=== PATIENT | female | born 1935 | race Caucasian/White ===

== ENCOUNTER 2017-06-07 14:07 | Inpatient (IN) | payer OTHER, MEDICARE ==
--- OUTSIDE RECORDS SUMMARY | 2017-06-07 14:10 | XMS REPORT ---
:1935 [facility] [address]. [address] [place] [id number] Care Team Providers Name Role Phone HAILEE DOWELL Unavailable Unavailable Problems This patient has no known problems. Allergies, Adverse Reactions, Alerts This patient has no known allergies or adverse reactions. Medications This patient has no known medications. Results Test Description Test Time Test Comments Text Results Atomic Results Result Comments BLOOD CULTURE 2017-01-15 00:00:00 Test Item Value Reference Range Comments CULTURE (BEAKER) (test pgmo=9913) No growth in 5 days BLOOD [id number] 00:00:00 Test Item Value Reference Range Comments CULTURE (BEAKER) (test tvju=9929) No growth in 5 days CLOSTRIDIUM DIFFICILE TOXIN [id number] 17:09:00 Test Item Value Reference Range Comments CLOSTRIDIUM DIFFICILE TOXIN, PCR (BEAKER) (test Not Detected Not Detected qrfm=0091) This qualitative real-time polymerase chain reaction assay detects the tcdB gene , encoded on the C.difficile pathogenicity locus (PaLoc). The product of tcdB, toxin B, is a cytotoxin essential for causing C.difficile-associated disease ( CDAD) and is found in virtually all toxigenic C.difficile.This assay is performed for patients suspected of having either community-acquired or nosocomial CDAD. Accordingly, only symptomatic patients should be tested and formed stools will be rejected unless ileus is present (i.e., specified when ordering). Patients may be colonized with toxigenic C.difficile strains not causing active disease; therefore, clinical correlation is needed when deciding how to manage patients with a positive test result.The assay has not been validated as a test of cure as amplifiable nucleic acid may persist after effective treatment; therefore, follow-up testing of a positive result is not recommended.BASIC METABOLIC [id number] 10:06:00 Test Item Value Reference Range Comments SODIUM (BEAKER) (test 138 meq/L 136-145 hmhd=682) POTASSIUM (BEAKER) (test 4.2 meq/L 3.5-5.1 Specimen slightly fpzz=521) hemolyzed CHLORIDE (BEAKER) (test 104 meq/L 98-107 vzef=589) CO2 (BEAKER) (test 24 meq/L 22-29 rixy=000) BLOOD UREA NITROGEN 26 mg/dL 7-21 (BEAKER) (test irws=122) CREATININE (BEAKER) (test 0.94 mg/dL 0.57-1.25 Specimen slightly cwpv=133) hemolyzed GLUCOSE RANDOM (BEAKER) 100 mg/dL 70-105 (test cspa=750) CALCIUM (BEAKER) (test 8.8 mg/dL 8.4-10.2 xavi=513) EGFR (BEAKER) (test 57 mL/min/1.73 sq m ESTIMATED GFR IS NOT cskg=4338) ACCURATE CREATININE CLEARANCE IN PREDICTING GLOMERULAR FILTRATION RATE. ESTIMATED GFR IS NOT APPLICABLE FOR DIALYSIS PATIENTS. CBC W/PLT COUNT & AUTO [id number] 09:48:00 Test Item Value Reference Range Comments WHITE BLOOD CELL COUNT 12.9 K/ L 3.5-10.5 (BEAKER) (test lfoc=930) RED BLOOD CELL COUNT (BEAKER) 4.59 M/ L 3.93-5.22 (test vaal=751) HEMOGLOBIN (BEAKER) (test 13.4 GM/DL 11.2-15.7 uyuu=009) HEMATOCRIT (BEAKER) (test 43.1 % 34.1-44.9 zgqq=223) MEAN CORPUSCULAR VOLUME 93.9 fL 79.4-94.8 (BEAKER) (test jjzy=902) MEAN CORPUSCULAR HEMOGLOBIN 29.2 pg 25.6-32.2 (BEAKER) (test qbwa=142) MEAN CORPUSCULAR HEMOGLOBIN 31.1 GM/DL 32.2-35.5 CONC (BEAKER) (test mizv=274) RED CELL DISTRIBUTION WIDTH 12.8 % 11.7-14.4 (BEAKER) (test khfo=583) PLATELET COUNT (BEAKER) (test 286 K/CU MM 150-450 .Discordant from previous qzfe=502) results. Clinical correlation suggested. MEAN PLATELET VOLUME (BEAKER) 10.3 fL 9.4-12.3 (test qcbz=869) NUCLEATED RED BLOOD CELLS 0 /100 WBC 0-0 (BEAKER) (test siwl=594) NEUTROPHILS RELATIVE PERCENT 70 % (BEAKER) (test niha=982) LYMPHOCYTES RELATIVE PERCENT 17 % (BEAKER) (test yabw=365) MONOCYTES RELATIVE PERCENT 8 % (BEAKER) (test eoks=886) EOSINOPHILS RELATIVE PERCENT 3 % (BEAKER) (test ywxb=283) BASOPHILS RELATIVE PERCENT 1 % (BEAKER) (test xnms=482) NEUTROPHILS ABSOLUTE COUNT 9.04 K/ L 1.56-6.13 (BEAKER) (test bvli=572) LYMPHOCYTES ABSOLUTE COUNT 2.22 K/ L 1.18-3.74 (BEAKER) (test zxkl=577) MONOCYTES ABSOLUTE COUNT 0.99 K/ L 0.24-0.36 (BEAKER) (test gbdq=189) EOSINOPHILS ABSOLUTE COUNT 0.32 K/ L 0.04-0.36 (BEAKER) (test hhud=327) BASOPHILS ABSOLUTE COUNT 0.15 K/ L 0.01-0.08 (BEAKER) (test cptw=537) IMMATURE 1 % 0-1 GRANULOCYTES-RELATIVE PERCENT (BEAKER) (test njag=3803) RAD, FOOT, 2 VIEWS, [id number] 16:52:00Reason for exam:->pain with ambulationFINAL REPORT Radiograph of the right foot Reason for exam: pain with ambulation Comparison: No priors Discussion: Three views of the right foot are obtained. Bony mineralization is decreased. There is mild osteoarthritic change. No evidence of acute fracture, or dislocation. No bony erosion, or periosteal reaction is identified. The visualized soft tissues are unremarkable. Impressions: No acute osseous abnormality identified. Decreased bony mineralization. Osteoarthritis.Signed: Ting Peterson Verified Date/Time: 01/12/2017 16:52:45 Reading Location: [address] Consult Reading Room T4, [id number] 16:26:00 Test Item Value Reference Range Comments FREE T4 (BEAKER) (test afxa=352) 1.12 ng/dL 0.70-1.48 TSH/FREE T4 IF [id number] 15:46:00 Test Item Value Reference Range Comments THYROID STIMULATING HORMONE (BEAKER) (test 0.03 uIU/mL 0.35-4.94 fhjt=153) BASIC METABOLIC [id number] 15:35:00 Test Item Value Reference Range Comments SODIUM (BEAKER) (test 136 meq/L 136-145 aahn=657) POTASSIUM (BEAKER) (test 4.1 meq/L 3.5-5.1 hzli=186) CHLORIDE (BEAKER) (test 99 meq/L 98-107 qtrw=823) CO2 (BEAKER) (test 24 meq/L 22-29 ewzs=580) BLOOD UREA NITROGEN 32 mg/dL 7-21 (BEAKER) (test tpga=618) CREATININE (BEAKER) (test 1.12 mg/dL 0.57-1.25 ttqz=592) GLUCOSE RANDOM (BEAKER) 164 mg/dL 70-105 (test gnnx=472) CALCIUM (BEAKER) (test 10.2 mg/dL 8.4-10.2 hjyz=101) EGFR (BEAKER) (test 46 mL/min/1.73 sq m ESTIMATED GFR IS NOT uory=0952) ACCURATE CREATININE CLEARANCE IN PREDICTING GLOMERULAR FILTRATION RATE. ESTIMATED GFR IS NOT APPLICABLE FOR DIALYSIS PATIENTS. CBC W/PLT COUNT & AUTO [id number] 15:06:00 Test Item Value Reference Range Comments WHITE BLOOD CELL COUNT (BEAKER) (test yfic=357) 17.4 K/ L 3.5-10.5 RED BLOOD CELL COUNT (BEAKER) (test pdmf=546) 4.93 M/ L 3.93-5.22 HEMOGLOBIN (BEAKER) (test gznr=090) 14.0 GM/DL 11.2-15.7 HEMATOCRIT (BEAKER) (test lupq=650) 44.8 % 34.1-44.9 MEAN CORPUSCULAR VOLUME (BEAKER) (test mcev=877) 90.9 fL 79.4-94.8 MEAN CORPUSCULAR HEMOGLOBIN (BEAKER) (test 28.4 pg 25.6-32.2 zgto=067) MEAN CORPUSCULAR HEMOGLOBIN CONC (BEAKER) (test 31.3 GM/DL 32.2-35.5 lpuo=135) RED CELL DISTRIBUTION WIDTH (BEAKER) (test 12.9 % 11.7-14.4 yiha=300) PLATELET COUNT (BEAKER) (test cvbw=354) 360 K/CU MM 150-450 MEAN PLATELET VOLUME (BEAKER) (test cexl=247) 10.5 fL 9.4-12.3 NUCLEATED RED BLOOD CELLS (BEAKER) (test 0 /100 WBC 0-0 ogbh=446) NEUTROPHILS RELATIVE PERCENT (BEAKER) (test 82 % opwt=372) LYMPHOCYTES RELATIVE PERCENT (BEAKER) (test 11 % fnhf=484) MONOCYTES RELATIVE PERCENT (BEAKER) (test 4 % giww=287) EOSINOPHILS RELATIVE PERCENT (BEAKER) (test 0 % iggm=636) BASOPHILS RELATIVE PERCENT (BEAKER) (test 1 % gimf=789) NEUTROPHILS ABSOLUTE COUNT (BEAKER) (test 14.33 K/ L 1.56-6.13 bpsl=605) LYMPHOCYTES ABSOLUTE COUNT (BEAKER) (test 1.97 K/ L 1.18-3.74 efwk=644) MONOCYTES ABSOLUTE COUNT (BEAKER) (test 0.71 K/ L 0.24-0.36 sgcs=089) EOSINOPHILS ABSOLUTE COUNT (BEAKER) (test 0.05 K/ L 0.04-0.36 rebe=592) BASOPHILS ABSOLUTE COUNT (BEAKER) (test 0.16 K/ L 0.01-0.08 pozw=319) IMMATURE GRANULOCYTES-RELATIVE PERCENT (BEAKER) 1 % 0-1 (test vgcy=4909) URINE [id number] 08:21:00 Test Item Value Reference Range Comments CULTURE (BEAKER) (test bzrj=6879) Amikacin (test code=1) Ampicillin + Sulbactam (test code=6) Aztreonam (test code=32) Cefepime (test code=51) Cefoxitin (test code=68) Ceftazidime (test code=27) Ceftriaxone (test code=52) Ertapenem (test code=38) Gentamicin (test code=18) Levofloxacin (test code=22) Meropenem (test code=34) Nitrofurantoin (test code=23) Piperacillin + Tazobactam (test code=29) Tetracycline (test code=2) Tobramycin (test code=25) Trimethoprim + Sulfamethoxazole (test code=47) CULTURE (BEAKER) (test zfyo=0298) >100,000 col/mL Proteus mirabilis <10,000 col/mL skin ranjith<10,000 col/mL gram negative rods of a second typeMR, BRAIN, WITHOUT [id number] 16:03:00Reason for exam:->Ischemic Stroke EvaluationFINAL REPORT MRI Brain without contrast Clinical History: Ischemic Stroke EvaluationTIA Episode of Care: Initial Technique: MRI of the brain utilizing axial T2, FLAIR, GRE, DWI; sagittal and coronal T1-weighted images. Comparisons: None Findings: There is no evidence of acute infarct or hemorrhage. There is an incompletely characterized 8 mm T2 hyperintense, T1 isointense soft tissue nodule in the suprasellar cistern, possibly related to the infundibulum. There is a focal extra-axial CSF signal intensity space in the left lateral frontal region measuring approximately 1.8 cm in thickness by 3.4 cm AP which may represent an arachnoid cyst. There is contouring of the underlying frontal lobe without evidence of vasogenic edema. There is moderate to severe periventricular and subcortical white matter T2 hyperintensity, which is nonspecific but compatible with chronic microvascular ischemic change. There is generalized parenchymal volume loss without hydrocephalus or midline shift. The craniocervical junction is preserved. The major intracranial flow-voids appear patent. IMPRESSION: No evidence of acute infarct, hemorrhage, or hydrocephalus. Nonspecific 8 mm nodule in the suprasellar cistern, possibly related to the infundibulum. Further evaluation with a dedicated pituitary protocol MRI brain is recommended. 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 Signed: Wang Lunsford MDReport Verified Date/Time: 16:03:04 Reading Location: [address] Neuro Reading Room URINALYSIS W/ [id number] 15:35:00 Test Item Value Reference Range Comments COLOR (BEAKER) (test peoz=035) Light Yellow CLARITY (BEAKER) (test bkkp=675) Hazy SPECIFIC GRAVITY UA (BEAKER) (test xbge=425) 1.010 1.001-1.035 PH UA (BEAKER) (test hbfg=659) 8.0 5.0-8.0 PROTEIN UA (BEAKER) (test nzbm=516) 20 mg/dL Negative GLUCOSE UA (BEAKER) (test laqa=737) Negative Negative KETONES UA (BEAKER) (test bbmn=608) Negative Negative BILIRUBIN UA (BEAKER) (test imao=222) Negative Negative BLOOD UA (BEAKER) (test ybio=061) Negative Negative NITRITE UA (BEAKER) (test dsuw=269) Negative Negative LEUKOCYTE ESTERASE UA (BEAKER) (test lctm=434) Large Negative UROBILINOGEN UA (BEAKER) (test aqvd=166) 0.2 mg/dL 0.2-1.0 RBC UA (BEAKER) (test faov=354) 2 /HPF WBC UA (BEAKER) (test uvlo=319) 87 /HPF SQUAMOUS EPITHELIAL (BEAKER) (test dlqd=255) 3 /HPF SOURCE(BEAKER) (test kqkv=7191) Urine, Voided URINALYSIS W/ REFLEX URINE [id number] 15:35:00 Test Item Value Reference Range Comments COLOR (BEAKER) (test gxic=830) Light Yellow CLARITY (BEAKER) (test ewam=400) Hazy SPECIFIC GRAVITY UA (BEAKER) (test ogdz=474) 1.010 1.001-1.035 PH UA (BEAKER) (test ibbq=327) 8.0 5.0-8.0 PROTEIN UA (BEAKER) (test trbc=225) 20 mg/dL Negative GLUCOSE UA (BEAKER) (test hhub=620) Negative Negative KETONES UA (BEAKER) (test dcau=534) Negative Negative BILIRUBIN UA (BEAKER) (test cnof=079) Negative Negative BLOOD UA (BEAKER) (test dewh=663) Negative Negative NITRITE UA (BEAKER) (test xbbh=421) Negative Negative LEUKOCYTE ESTERASE UA (BEAKER) (test pdpc=999) Large Negative UROBILINOGEN UA (BEAKER) (test gijj=108) 0.2 mg/dL 0.2-1.0 RBC UA (BEAKER) (test sdkq=405) 2 /HPF WBC UA (BEAKER) (test cuba=336) 87 /HPF SQUAMOUS EPITHELIAL (BEAKER) (test ycxc=210) 3 /HPF SOURCE(BEAKER) (test dcxc=8817) Urine, Voided [id number] 14:30:00 Test Item Value Reference Range Comments RPR SCREEN (BEAKER) (test hvvd=237) Nonreactive Nonreactive HEMOGLOBIN [id number] 10:58:00 Test Item Value Reference Range Comments HEMOGLOBIN A1C (BEAKER) (test cukw=463) 5.8 % 4.3-6.1 SEDIMENTATION [id number] 10:44:00 Test Item Value Reference Range Comments SEDIMENTATION RATE, ERYTHROCYTE (BEAKER) (test 52 mm/HR 0-40 xvgl=462) T4, [id number] 09:16:00 Test Item Value Reference Range Comments FREE T4 (BEAKER) (test wjbm=599) 0.94 ng/dL 0.70-1.48 TSH/FREE T4 IF [id number] 08:42:00 Test Item Value Reference Range Comments THYROID STIMULATING HORMONE (BEAKER) (test 0.05 uIU/mL 0.35-4.94 wxkq=630) VITAMIN B12 AND [id number] 08:37:00 Test Item Value Reference Range Comments VITAMIN B12 (BEAKER) (test nefp=648) 829 pg/mL 213-816 FOLATE (BEAKER) (test ddnh=298) 15.9 ng/mL >=7.0 [id number] 08:36:00 Test Item Value Reference Range Comments HOMOCYSTEINE (BEAKER) (test rrht=656) 10.2 umol/L 5.1-15.4 LIPID [id number] 08:26:00 Test Item Value Reference Range Comments TRIGLYCERIDES (BEAKER) (test uysx=928) 86 mg/dL CHOLESTEROL (BEAKER) (test jzxr=609) 194 mg/dL HDL CHOLESTEROL (BEAKER) (test goqt=835) 66 mg/dL LDL CHOLESTEROL CALCULATED (BEAKER) (test 111 mg/dL nfuf=361) Triglyceride Reference Range: Low Risk <150 Borderline 150- 199 High Risk 200-499 Very High Risk >=500Cholesterol Reference Range: Low Risk <200 Borderline 200-239 High Risk > 240HDL Cholesterol Reference Range: Low Risk >=60 High Risk <40LDL Cholesterol Reference Range: Optimal <100 Near Optimal 100-129 Borderline 130-159 High 160-189 Very High >=190 FastingBASIC METABOLIC [id number] 08:26:00 Test Item Value Reference Range Comments SODIUM (BEAKER) (test 136 meq/L 136-145 jokz=534) POTASSIUM (BEAKER) (test 4.7 meq/L 3.5-5.1 elda=618) CHLORIDE (BEAKER) (test 99 meq/L 98-107 yvtq=493) CO2 (BEAKER) (test 24 meq/L 22-29 yhwf=226) BLOOD UREA NITROGEN 27 mg/dL 7-21 (BEAKER) (test jmdo=358) CREATININE (BEAKER) (test 1.04 mg/dL 0.57-1.25 uhxf=052) GLUCOSE RANDOM (BEAKER) 133 mg/dL 70-105 (test ihlr=875) CALCIUM (BEAKER) (test 8.8 mg/dL 8.4-10.2 ouiu=669) EGFR (BEAKER) (test 51 mL/min/1.73 sq m ESTIMATED GFR IS NOT hdvk=0075) ACCURATE CREATININE CLEARANCE IN PREDICTING GLOMERULAR FILTRATION RATE. ESTIMATED GFR IS NOT APPLICABLE FOR DIALYSIS PATIENTS. FastingHEPATIC FUNCTION [id number] 08:26:00 Test Item Value Reference Range Comments TOTAL PROTEIN (BEAKER) (test hkqm=071) 6.8 gm/dL 6.0-8.3 ALBUMIN (BEAKER) (test nktq=0010) 3.4 g/dL 3.5-5.0 BILIRUBIN TOTAL (BEAKER) (test wfdm=555) 0.6 mg/dL 0.2-1.2 BILIRUBIN DIRECT (BEAKER) (test edjy=599) 0.2 mg/dL 0.1-0.5 ALKALINE PHOSPHATASE (BEAKER) (test txbl=537) 67 U/L 40-150 AST (SGOT) (BEAKER) (test yinl=834) 16 U/L 5-34 ALT (SGPT) (BEAKER) (test ujxo=097) 11 U/L 6-55 FastingCREATINE KINASE (CK), TOTAL AND [id number] 08:26:00 Test Item Value Reference Range Comments CREATINE KINASE TOTAL (BEAKER) (test bixr=981) 30 U/L 29-200 CREATINE KINASE-MB (BEAKER) (test cvsv=956) 0.8 ng/mL 0.0-6.6 CREATINE KINASE-MB INDEX (BEAKER) (test dnjt=576) 2.7 % CK-MB Reference Range:<6.7 Normal6.7-10.0 Borderline>10.0 AbnormalFastingFastingC-REACTIVE [id number] 08:26:00 Test Item Value Reference Range Comments C-REACTIVE PROTEIN (BEAKER) (test neib=330) 1.74 mg/dL 0.00-0.50 FastingCBC W/PLT COUNT & AUTO [id number] 07:57:00 Test Item Value Reference Range Comments WHITE BLOOD CELL COUNT (BEAKER) (test mapc=201) 16.6 K/ L 3.5-10.5 RED BLOOD CELL COUNT (BEAKER) (test aiii=692) 4.21 M/ L 3.93-5.22 HEMOGLOBIN (BEAKER) (test ufqg=295) 12.3 GM/DL 11.2-15.7 HEMATOCRIT (BEAKER) (test rzkg=847) 38.4 % 34.1-44.9 MEAN CORPUSCULAR VOLUME (BEAKER) (test ycmk=865) 91.2 fL 79.4-94.8 MEAN CORPUSCULAR HEMOGLOBIN (BEAKER) (test 29.2 pg 25.6-32.2 uxnt=134) MEAN CORPUSCULAR HEMOGLOBIN CONC (BEAKER) (test 32.0 GM/DL 32.2-35.5 ehjv=565) RED CELL DISTRIBUTION WIDTH (BEAKER) (test 12.9 % 11.7-14.4 zosu=667) PLATELET COUNT (BEAKER) (test mwgc=292) 296 K/CU MM 150-450 MEAN PLATELET VOLUME (BEAKER) (test kkzy=966) 10.3 fL 9.4-12.3 NUCLEATED RED BLOOD CELLS (BEAKER) (test 0 /100 WBC 0-0 uave=458) NEUTROPHILS RELATIVE PERCENT (BEAKER) (test 78 % jbii=833) LYMPHOCYTES RELATIVE PERCENT (BEAKER) (test 15 % ucng=539) MONOCYTES RELATIVE PERCENT (BEAKER) (test 5 % sufn=496) EOSINOPHILS RELATIVE PERCENT (BEAKER) (test 1 % mrgb=973) BASOPHILS RELATIVE PERCENT (BEAKER) (test 1 % ddeo=343) NEUTROPHILS ABSOLUTE COUNT (BEAKER) (test 12.92 K/ L 1.56-6.13 egam=281) LYMPHOCYTES ABSOLUTE COUNT (BEAKER) (test 2.40 K/ L 1.18-3.74 goad=742) MONOCYTES ABSOLUTE COUNT (BEAKER) (test 0.90 K/ L 0.24-0.36 lgay=774) EOSINOPHILS ABSOLUTE COUNT (BEAKER) (test 0.08 K/ L 0.04-0.36 pmff=265) BASOPHILS ABSOLUTE COUNT (BEAKER) (test 0.11 K/ L 0.01-0.08 bpfl=714) IMMATURE GRANULOCYTES-RELATIVE PERCENT (BEAKER) 1 % 0-1 (test kdfo=0723) TROPONIN [id number] 07:47:00 Test Item Value Reference Range Comments TROPONIN I (BEAKER) (test anho=336) 0.01 ng/mL 0.00-0.03 Troponin I (TnI) levels must be interpreted in the context of the presenting symptoms and the clinical findings. Elevated TnI levels indicate myocardial damage, but are not specific for ischemic heart disease. Elevated TnI levels are seen in patients with other cardiac conditions (including myocarditis and congestive heart failure), and slight TnI elevations occur in patients with other conditions, including sepsis, renal failure, acidosis, acute neurological disease, and persistent tachyarrhythmia.Fasting
[2017-06-07] MEDS ORDERED: ALBUTEROL 2.5 MG/3 ML NEB SOL ONE (14:48)
[2017-06-07 14:49] LABS: Absolute Lymphocytes (CBC) 2.2 K/uL (0.7-4.9); Absolute Monocytes 0.6 K/uL (0.1-1.3); Absolute Neutrophil 10.8 K/uL (1.8-8.0); Basophils % 1.1 % (0-1.3); Lymphocytes % 15.8 % (15.3-44.8); MCH 29.1 pg (27.0-35.0); MCV 91.1 fL (80-100); MPV 9.1 fL (7.6-11.3); Monocytes % 4.3 % (3.3-12.3); RBC Red Blood Cell Count 4.94 M/uL (3.86-4.86)
[2017-06-07] MEDS ORDERED: IPRATROPIUM BROM 0.5MG/2.5ML ONE (14:49)
[2017-06-07] MEDS ORDERED: LEVALBUTEROL 1.25 MG/3 ML NEB ONE (14:49)
[2017-06-07 14:51] LABS: Potassium 4.4 mEq/L (3.6-5.0)
[2017-06-07 14:57] LABS: Albumin 4.2 g/dL (3.2-5.5); Bilirubin Direct 0.1 mg/dL (0-0.2); Bilirubin Total 0.7 mg/dL (0.3-1.2); Magnesium 2.1 mg/dL (1.8-2.5); Protein, Total 8.1 g/dL (6.0-8.3)
--- NOTE | 2017-06-07 15:35 | EKG ---
Test Date: 2017-06-07 Test Time: 14:18:39 Glass Smoother: HOLLIS MEASUREMENT RESULTS: Intervals: Rate: 91 UT: 150 QRSD: 76 QT: 402 QTc: 494 Donalds: P: 65 UT: 150 QRS: -14 T: 29 INTERPRETIVE STATEMENTS: Normal sinus rhythm with sinus arrhythmia Low voltage QRS Inferior infarct, age undetermined Abnormal ECG Compared to ECG 01/08/2017 22:49:45 Low QRS voltage now present Atrial premature complex(es) no longer present Myocardial infarct finding still present Electronically Signed On 06-07-17 15:34:18 CDT by Paul Hoffman
[2017-06-07 15:58] LABS: Protime INR 1.05
--- NOTE | 2017-06-07 16:39 | EDPHYS ---
Physician Documentation [facility] Name: Elida Pradhan Age: 81 yrs Sex: Female : 1935 Arrival Date: 06/07/2017 Time: 14:06 Bed 4 Private MD: ED Physician Donato Martinez HPI: 06/07 14:36 This 81 yrs old Female presents to ER via EMS with complaints of Shortness Of jr8 Breath. 14:36 The patient has shortness of breath at rest. Onset: The symptoms/episode began/occurred jr8 acutely, 3 day(s) ago, and became worse and became persistent. Duration: The symptoms are continuous. The patient's shortness of breath is aggravated by coughing, walking. Associated signs and symptoms: The patient has no apparent associated signs or symptoms. Severity of symptoms: At their worst the symptoms were moderate in the emergency department the symptoms are unchanged. The patient has not experienced similar symptoms in the past. The patient has not recently seen a physician. Historical: - Allergies: 14:09 Levaquin; hb - Home Meds: 14:09 Aldactazide 25mg-25mg tablet PO daily [Active]; diazepam 5 mg Oral tab 1 tab 2 times hb per day [Active]; Effexor XR XR 75 mg PO BID Oral cp24 1 cap once daily [Active]; ellipta [Active]; Flagyl 500 mg Oral tab 1 tab 3 times per day [Active]; hydrocodone-acetaminophen 5-325 mg Oral tab twice a day [Active]; Lotrisone 1-0.05 % Topical crea 2 times per day [Active]; methimazole 10 mg Oral tab 1 tab three times a day [Active]; metoprolol tartrate 25 mg Oral tab 1 tab 2 times per day [Active]; mirtazapine 15 mg Oral TbDL 1 tab once daily [Active]; nystatin 100,000 unit/gram Topical powd 2 times per day [Active]; prednisone 5 mg Oral tab once daily [Active]; ProAir HFA 90 mcg/actuation inhalation HFAA 2 puffs every 6 hours [Active]; - PMHx: 14:09 COPD; DYSPHAGIA; Hypertension; Myocardial infarction; hb - PSHx: 14:09 None; hb - Immunization history:: Adult Immunizations up to date. - Social history:: Smoking status: Patient/guardian denies using tobacco. ROS: 14:36 Eyes: Negative for injury, pain, redness, and discharge, ENT: Negative for injury, jr8 pain, and discharge, Neck: Negative for injury, pain, and swelling, Cardiovascular: Negative for chest pain, palpitations, and edema, Abdomen/GI: Negative for abdominal pain, nausea, vomiting, diarrhea, and constipation, Back: Negative for injury and pain, MS/Extremity: Negative for injury and deformity, Skin: Negative for injury, rash, and discoloration, Neuro: Negative for headache, weakness, numbness, tingling, and seizure. 14:36 Respiratory: Positive for cough, dyspnea on exertion, shortness of breath, wheezing. Exam: 14:36 Eyes: Pupils equal round and reactive to light, extra-ocular motions intact. Lids and jr8 lashes normal. Conjunctiva and sclera are non-icteric and not injected. Cornea within normal limits. Periorbital areas with no swelling, redness, or edema. ENT: Nares patent. No nasal discharge, no septal abnormalities noted. Tympanic membranes are normal and external auditory canals are clear. Oropharynx with no redness, swelling, or masses, exudates, or evidence of obstruction, uvula midline. Mucous membranes moist. Neck: Trachea midline, no thyromegaly or masses palpated, and no cervical lymphadenopathy. Supple, full range of motion without nuchal rigidity, or vertebral point tenderness. No Meningismus. Cardiovascular: Regular rate and rhythm with a normal S1 and S2. No gallops, murmurs, or rubs. Normal PMI, no JVD. No pulse deficits. Abdomen/GI: Soft, non-tender, with normal bowel sounds. No distension or tympany. No guarding or rebound. No evidence of tenderness throughout. Back: No spinal tenderness. No costovertebral tenderness. Full range of motion. Skin: Warm, dry with normal turgor. Normal color with no rashes, no lesions, and no evidence of cellulitis. MS/ Extremity: Pulses equal, no cyanosis. Neurovascular intact. Full, normal range of motion. Neuro: Awake and alert, GCS 15, oriented to person, place, time, and situation. Cranial nerves II-XII grossly intact. Motor strength 5/5 in all extremities. Sensory grossly intact. Cerebellar exam normal. Normal gait. 14:36 Respiratory: mild respiratory distress is noted, Respirations: labored breathing, tachypnea, Breath sounds: wheezing: expiratory that is moderate, is heard diffusely. Vital Signs: 14:10 BP 179 / 97; Pulse 98; Resp 29; Temp 98.6; Pulse Ox 95% on R/A; Weight 73.03 kg; Height hb 5 ft. 1 in. (154.94 cm); Pain 0/10; 14:11 Pulse Ox 100% on 2 lpm NC; hb 17:30 BP 175 / 87; Pulse 82; Resp 18; Pulse Ox 98% on 2 lpm NC; Pain 0/10; sg 18:00 BP 159 / 82; Pulse 89; Resp 18; Pulse Ox 98% on 2 lpm NC; Pain 0/10; sg 14:10 Body Mass Index 30.42 (73.03 kg, 154.94 cm) hb Zulay Coma Score: 17:30 Eye Response: spontaneous(4). Verbal Response: oriented(5). Motor Response: obeys sg commands(6). Total: 15. MDM: 14:06 Patient medically screened. [facility] 16:36 Data reviewed: vital signs, nurses notes, lab test result(s), EKG, radiologic studies, [facility] plain films, and as a result, I will admit patient. Data interpreted: Pulse oximetry: on room air is 92 %. Interpretation: borderline. Counseling: I had a detailed discussion with the patient and/or guardian regarding: the historical points, exam findings, and any diagnostic results supporting the discharge/admit diagnosis, lab results, radiology results, the need for further work-up and treatment in the hospital. Physician consultation: Slade Saldana MD was called at 16:36, was contacted at 16:37, regarding admission, to the telemetry unit. consult, patient's condition, and will see patient. 06/07 14:15 Order name: Basic Metabolic Panel [facility] 06/07 14:15 Order name: BNP [facility] 06/07 14:15 Order name: CBC with Diff [facility] 06/07 14:15 Order name: LFT's [facility] 06/07 14:15 Order name: Magnesium [facility] 06/07 14:15 Order name: PT-INR [facility] 06/07 14:15 Order name: Troponin (emerg Dept Use Only) [facility] 06/07 14:16 Order name: Blood Culture Adult (2) [facility] 06/07 14:51 Order name: Basic Metabolic Panel; Complete Time: 15:01 EDMS 06/07 14:58 Order name: Liver (Hepatic) Function; Complete Time: 15:01 EDMS 06/07 14:58 Order name: Magnesium; Complete Time: 15:01 EDMS 06/07 14:58 Order name: Troponin (Emerg Dept Use Only); Complete Time: 15:01 EDMS 06/07 15:01 Order name: BNP B-Type Natriuretic Peptide; Complete Time: 15:01 EDMS 06/07 15:15 Order name: CBC with Automated Diff; Complete Time: 15:18 EDMS 06/07 14:15 Order name: XRAY Chest (1 view) [facility] 06/07 14:15 Order name: EKG; Complete Time: 14:16 [facility] 06/07 14:15 Order name: Cardiac monitoring; Complete Time: 14:34 [facility] 06/07 14:15 Order name: EKG - Nurse/Tech; Complete Time: 14:34 [facility] 06/07 14:15 Order name: IV Saline Lock; Complete Time: 14:35 [facility] 06/07 14:15 Order name: Labs collected and sent; Complete Time: 14:35 [facility] 06/07 14:15 Order name: O2 Per Protocol; Complete Time: 14:35 [facility] 06/07 14:15 Order name: O2 Sat Monitoring; Complete Time: 14:35 [facility] 06/07 14:15 Order name: Urine Dipstick-Ancillary (obtain specimen); Complete Time: 17:29 [facility] 06/07 15:59 Order name: Protime (+INR); Complete Time: 16:00 EDMS Administered Medications: 14:21 CANCELLED (given in route by EMS): SOLU-Medrol 125 mg IVP once sg 14:30 Drug: Albuterol - atroVENT (3:1) (2.5 mg - 0.5 mg) 3 ml Route: Nebulizer; sg 17:40 Drug: Rocephin 1 grams Route: IV; Rate: calculated rate; Site: left antecubital; sg 17:41 Drug: Zithromax 500 mg Route: IVPB; Infused Over: 1 hrs; Site: left antecubital; sg Disposition: 06/08 07:34 Co-signature as Attending Physician, Donato Martinez MD I agree with the assessment and seth plan of care. Disposition: 06/07/17 16:38 Hospitalization ordered by Slade Saldana for Inpatient Admission. Preliminary diagnosis is Pneumonia due to other specified bacteria. - Bed requested for Telemetry/MedSurg (Inpatient). - Status is Inpatient Admission. sg - Condition is Stable. - Problem is new. - Symptoms have improved. UTI on Admission? No Signatures: Dispatcher [employer] EDMS Swati Otto Steven, RN RN Donato Warren MD MD cha Roszak, Josh, PA PA jr8 Marylou Greenwood RN RN Corrections: (The following items were deleted from the chart) 06/07 14:21 14:15 SOLU-Medrol 125 mg IVP once ordered. jr8
--- NOTE | 2017-06-07 16:39 | ER ---
Nurse's Notes [facility] Name: Elida Pradhan Age: 81 yrs Sex: Female : 1935 Arrival Date: 06/07/2017 Time: 14:06 Bed 4 Private MD: Diagnosis: Pneumonia due to other specified bacteria Presentation: 06/07 14:06 Presenting complaint: Patient states: SOB for yrs. HX of COPD. Transition of care: hb patient was not received from another setting of care. Onset of symptoms was June 04, 2017. Care prior to arrival: Medication(s) given: Albuterol Neb x 1, Atrovent Neb x 1, Solumedrol 125mg IV initiated. 20 GA, in the right hand. 14:06 Method Of Arrival: EMS: [facility] 14:06 Acuity: TALYA 3 hb Triage Assessment: 14:10 General: Appears in no apparent distress. comfortable, Behavior is calm, cooperative, hb appropriate for age. Pain: Denies pain. Neuro: Level of Consciousness is awake, alert, obeys commands, Oriented to person, place, time, situation. Respiratory: Reports shortness of breath at rest Airway is patent Respiratory effort is even, unlabored, Respiratory pattern is regular, symmetrical, Onset: The symptoms/episode began/occurred gradually, the patient has moderate shortness of breath. Derm: Skin is intact, is healthy with good turgor, Skin is pink, warm \T\ dry. normal, Skin temperature is warm. Historical: - Allergies: 14:09 Levaquin; hb - Home Meds: 14:09 Aldactazide 25mg-25mg tablet PO daily [Active]; diazepam 5 mg Oral tab 1 tab 2 times hb per day [Active]; Effexor XR XR 75 mg PO BID Oral cp24 1 cap once daily [Active]; ellipta [Active]; Flagyl 500 mg Oral tab 1 tab 3 times per day [Active]; hydrocodone-acetaminophen 5-325 mg Oral tab twice a day [Active]; Lotrisone 1-0.05 % Topical crea 2 times per day [Active]; methimazole 10 mg Oral tab 1 tab three times a day [Active]; metoprolol tartrate 25 mg Oral tab 1 tab 2 times per day [Active]; mirtazapine 15 mg Oral TbDL 1 tab once daily [Active]; nystatin 100,000 unit/gram Topical powd 2 times per day [Active]; prednisone 5 mg Oral tab once daily [Active]; ProAir HFA 90 mcg/actuation inhalation HFAA 2 puffs every 6 hours [Active]; - PMHx: 14:09 COPD; DYSPHAGIA; Hypertension; Myocardial infarction; hb - PSHx: 14:09 None; hb - Immunization history:: Adult Immunizations up to date. - Social history:: Smoking status: Patient/guardian denies using tobacco. Screenin:00 Abuse screen: Denies threats or abuse. Denies injuries from another. Nutritional sg screening: No deficits noted. Tuberculosis screening: No symptoms or risk factors identified. Fall Risk None identified. Assessment: 15:00 General: Appears in no apparent distress. comfortable, obese, well groomed, well sg developed, well nourished, Behavior is calm, cooperative, appropriate for age. Pain: Denies pain. Neuro: Level of Consciousness is awake, alert, obeys commands, Speech is normal, Facial symmetry appears normal. Cardiovascular: Heart tones S1 S2 present Capillary refill is sluggish in bilateral fingers Rhythm is sinus rhythm. Respiratory: Airway is patent Respiratory effort is even, labored, Respiratory pattern is symmetrical, tachypnea Breath sounds are coarse. GI: Abdomen is round non-distended, Bowel sounds present X 4 quads. Reports normal bowel habits, tolerance of fluids, tolerance of food. : No signs and/or symptoms were reported regarding the genitourinary system. EENT: No signs and/or symptoms were reported regarding the EENT system. Derm: Skin is intact, is healthy with good turgor, Skin is pink, warm \T\ dry. Musculoskeletal: No signs and/or symptoms reported regarding the musculoskeletal system. Vital Signs: 14:10 BP 179 / 97; Pulse 98; Resp 29; Temp 98.6; Pulse Ox 95% on R/A; Weight 73.03 kg; Height hb 5 ft. 1 in. (154.94 cm); Pain 0/10; 14:11 Pulse Ox 100% on 2 lpm NC; hb 17:30 BP 175 / 87; Pulse 82; Resp 18; Pulse Ox 98% on 2 lpm NC; Pain 0/10; sg 18:00 BP 159 / 82; Pulse 89; Resp 18; Pulse Ox 98% on 2 lpm NC; Pain 0/10; sg 14:10 Body Mass Index 30.42 (73.03 kg, 154.94 cm) hb Zulay Coma Score: 17:30 Eye Response: spontaneous(4). Verbal Response: oriented(5). Motor Response: obeys sg commands(6). Total: 15. ED Course: 14:06 Patient arrived in ED. hb 14:06 Eren Ruelas PA is PHCP. jr8 14:06 Donato Martinez MD is Attending Physician. jr8 14:07 Triage completed. hb 14:11 Arm band placed on right wrist. Patient placed in an exam room, on a stretcher, on hb oxygen, on school bus monitor, on pulse oximetry. 14:12 Margarito Valdes, RN is Primary Nurse. sg 14:24 EKG done, by auto repair technician. reviewed by Eren PIZARRO. at1 14:38 Initial lab(s) drawn, by dc, sent to lab. Inserted saline lock: 20 gauge in right ms wrist, using aseptic technique. Blood collected. 15:26 X-ray completed. Portable x-ray completed in exam room. Patient tolerated procedure mh1 well. 16:37 Slade Saldana MD is Hospitalizing Provider. jr8 Administered Medications: 14:21 CANCELLED (given in route by EMS): SOLU-Medrol 125 mg IVP once sg 14:30 Drug: Albuterol - atroVENT (3:1) (2.5 mg - 0.5 mg) 3 ml Route: Nebulizer; sg 17:40 Drug: Rocephin 1 grams Route: IV; Rate: calculated rate; Site: left antecubital; sg 17:41 Drug: Zithromax 500 mg Route: IVPB; Infused Over: 1 hrs; Site: left antecubital; sg Outcome: 16:38 Decision to Hospitalize by Provider. jr8 18:25 Patient left the ED. sg Signatures: Margarito Valdes, RN RN Alysa Nascimento [facility] Johanna Padilla mi Eren Ruelas PA PA jr8 Mary sunshine, eastern philosophy professor EKG Tat1 Marylou Greenwood RN RN hb Corrections: (The following items were deleted from the chart) 14:10 14:06 Care prior to arrival: None. hb hb
[2017-06-07] MEDS ORDERED: CEFTRIAXONE/SWI 1gm 1 GM/10 ML SYR ONE (17:56)
[2017-06-07] MEDS ORDERED: AZITHROMYCIN 500 MG/250 ML BAG ONE (17:56)
--- NOTE | 2017-06-07 18:25 | RAD REPORT ---
EXAM DESCRIPTION: RAD - Chest Single View - 06/07/2017 3:29 pm CLINICAL HISTORY: Dyspnea, chronic shortness of breath COMPARISON: January 08 TECHNIQUE: AP portable chest image was obtained 1516 hours . FINDINGS: No peripheral mass or consolidation. Lung markings are mildly prominent, accentuated by a slightly shallow inspiration. Minimal interstitial edema or infiltrate could be masked. No vascular e ngorgement. Heart size is normal. Trachea is midline. No measurable pleural effusion and no pneumotho rax. No gross bony abnormality seen. No acute aortic findings suspected. IMPRESSION: Mild interstitial infiltrate at the lung bases versus shallow inspiration atelectasis.
[2017-06-07] MEDS ORDERED: ONDANSETRON 4 MG/2 ML VIAL IV PRN (18:51)
[2017-06-07] MEDS ORDERED: ALBUTEROL 2.5 MG/3 ML NEB SOL NEB PRN (18:51)
--- NOTE | 2017-06-07 21:41 | P.HP ---
Certification for Inpatient Patient admitted to: Inpatient With expected LOS: >2 Midnights Practitioner: I am a practitioner with admitting privileges, knowledge of patient current condition, hospital course, and medical plan of care. Services: Services provided to patient in accordance with Admission requirements found in Title 42 Section 412.3 of the Code of Federal Regulations Patient History Date of Service: 06/07/17 Reason for admission: SHORT OF BREATH, COUGH History of Present Illness: MRS. FOWLER HAS SEVERE COPD, HYEPRTHRYOIDISM AND COMES WITH DYSPNEA, COUGH FOR A FEW DAYS. SHE IS NOW IN ER. Allergies levofloxacin [From Levaquin] Adverse Reaction (Verified 12/04/16 22:04) Nausea/Vomiting Home Medications: Acetaminophen [Acetaminophen Extra Strength] 500 mg PO BID PRN 06/07/17 Albuterol Sulfate [Proair Hfa] 1 puff IH Q6HP PRN 06/07/17 Diazepam [Valium] 2 mg PO BEDTIME PRN 06/07/17 Loperamide [Imodium] 2 mg PO Q4HP PRN 06/07/17 Methimazole [Tapazole] 10 mg PO TID 06/07/17 Metoprolol Tartrate [Lopressor] 25 mg PO BID 06/07/17 Mirtazapine 15 mg PO BEDTIME 06/07/17 Spironolact/Hydrochlorothiazid [Spironolactone-Hctz 25-25 Tab] 1 tab PO DAILY Umeclidinium Brm/Vilanterol Tr [Anoro Ellipta 62.5-25 Mcg INH] 1 puff IH DAILY 06/07/17 Venlafaxine HCl [Venlafaxine HCl ER] 75 mg PO BID 06/07/17 - Past Medical/Surgical History Diabetic: No -: HTN -: GA -: COPD -: childhood asthma - Family History Father -: Kidney disease Notes: Bryte's disease Mother -: Stroke - Social History Alcohol use: No CD- Drugs: No Caffeine use: Yes Review of Systems 10-point ROS is otherwise unremarkable Respiratory: Cough, Shortness of Breath Physical Examination - Vital Signs Temperature: 98.6 F Blood Pressure: 159/82 Pulse: 89 Respirations: 18 - Physical Exam General: Alert, Moderate distress HEENT: Atraumatic, PERRLA, Mucous membr. moist/pink, EOMI, Sclerae nonicteric Neck: Supple, 2+ carotid pulse no bruit, No LAD, Without JVD or thyroid abnormality Respiratory: Diminished, Expiratory wheezes Cardiovascular: Regular rate/rhythm, Normal S1 S2 Gastrointestinal: Normal bowel sounds, No tenderness Musculoskeletal: No tenderness Integumentary: No rashes Neurological: Normal gait, Normal speech, Normal strength at 5/5 x4 extr, Normal tone, Normal affect Lymphatics: No axilla or inguinal lymphadenopathy - Studies Laboratory Data (last 24 hrs) 06/07/17 14:20: PT 12.4, INR 1.05 06/07/17 14:20: WBC 14.1 H, Hgb 14.4, Hct 45.0, Plt Count 273 06/07/17 14:20: B-Natriuretic Peptide 112 H 06/07/17 14:20: Sodium 137, Potassium 4.4, BUN 19, Creatinine 1.12 H, Glucose 150 H, Magnesium 2.1, Total Bilirubin 0.7, AST 30, ALT 17, Alkaline Phosphatase 68 Assessment and Plan - Problems (Diagnosis) (1) Pneumonia Current Visit: Yes Status: Acute Plan: IV ABX NEBS SHE IS ALLERGIC TO LEVAQUIN PROGNOSIS IS GUARDED. (2) COPD exacerbation Onset Date: 07/09/16 Current Visit: No Status: Acute Plan: NEBS ORAL STEROIDS. - Advance Directives Does patient have a Living Will: No Does patient have a Durable POA for Healthcare: Yes
[2017-06-07] MEDS: HYDROCODONE/APAP 5/325 MG TAB PO PRN (22:57)
[2017-06-08 04:04] VITALS: BMI 30.4
[2017-06-08 04:54] LABS: Absolute Lymphocytes (CBC) 1.4 K/uL (0.7-4.9); Absolute Monocytes 0.4 K/uL (0.1-1.3); Absolute Neutrophil 13.3 K/uL (1.8-8.0); Basophils % 0.3 % (0-1.3); Hematocrit 40.7 % (36.0-45.0); Lymphocytes % 9.3 % (15.3-44.8); MCH 30.1 pg (27.0-35.0); MPV 9.3 fL (7.6-11.3); Monocytes % 2.5 % (3.3-12.3); RBC Red Blood Cell Count 4.57 M/uL (3.86-4.86)
[2017-06-08 04:55] LABS: Potassium 4.3 mEq/L (3.6-5.0)
[2017-06-08 04:58] LABS: Albumin 3.8 g/dL (3.2-5.5); Protein, Total 7.5 g/dL (6.0-8.3)
[2017-06-08 05:09] LABS: Bilirubin Total 0.9 mg/dL (0.3-1.2)
[2017-06-08 06:29] LABS: Blood Morphology Comment NOT SEEN (NOT SEEN); Platelet Estimate ADEQ
[2017-06-08] MEDS ORDERED: PNEUMOCOCCAL VACCINE 0.5 ML IMVAC ONE (08:00)
[2017-06-08] MEDS ORDERED: CEFTRIAXONE 1 GM/50 ML BAG IV SCH (09:00)
[2017-06-08] MEDS ORDERED: AZITHROMYCIN IV 250 MG in NA CHLORIDE 0.9% 250 ML IVPB SCH (09:00)
[2017-06-08] MEDS: CEFTRIAXONE/SWI 1gm 1 GM/10 ML SYR IV SCH ×2 (09:09→21:24)
[2017-06-08] MEDS ORDERED: ALBUTEROL INHALER 60 PUFF/8 GM IH PRN (13:00)
[2017-06-08] MEDS ORDERED: ACETAMINOPHEN 500 MG TAB PO PRN (13:00)
[2017-06-08] MEDS ORDERED: DIAZEPAM 2 MG TABLET PO PRN (13:00)
[2017-06-08] MEDS: HYDROCODONE/APAP 5/325 MG TAB PO PRN (15:28)
[2017-06-08] MEDS: hydroCHLOROthiazide 25 MG TAB PO SCH (15:28)
[2017-06-08] MEDS: SPIRONOLACTONE 25 MG TABLET PO SCH (15:29)
--- NOTE | 2017-06-08 17:30 | P.PN ---
Subjective Date of Service: 06/08/17 Chief Complaint: SHORT OF BREATH, COUGH Subjective: Improving (STILL WHEEZES) Review of Systems 10-point ROS is otherwise unremarkable General: Weakness, Malaise Respiratory: Cough, Shortness of Breath Physical Examination - Vital Signs Temperature: 97.6 F Blood Pressure: 174/88 Pulse: 88 Respirations: 16 Pulse Ox (%): 94 - Physical Exam General: Mild distress, Moderate distress HEENT: Atraumatic, PERRLA, EOMI Neck: Supple, JVD not distended Respiratory: Diminished, Rhonchi/gurgles Cardiovascular: Regular rate/rhythm, Normal S1 S2 Gastrointestinal: Normal bowel sounds, No tenderness Musculoskeletal: No tenderness Integumentary: No rashes Neurological: Normal speech, Normal tone, Normal affect Lymphatics: No axilla or inguinal lymphadenopathy - Studies Medications List Reviewed: Yes Assessment And Plan - Current Problems (Diagnosis) (1) Pneumonia Onset Date: 06/08/17 Current Visit: Yes Status: Acute Plan: IV ABX NEBS SHE IS ALLERGIC TO LEVAQUIN PROGNOSIS IS GUARDED. Qualifiers: Pneumonia type: due to unspecified organism Laterality: bilateral (2) COPD exacerbation Onset Date: 07/09/16 Current Visit: No Status: Acute Plan: NEBS ORAL STEROIDS. (3) Hyperthyroidism Current Visit: No Status: Chronic Plan: TSH HAS IMPROVED RESUME TAPAZOLE.
[2017-06-08] MEDS: AZITHROMYCIN IV 250 MG in NA CHLORIDE 0.9% 250 ML IVPB SCH (17:45)
[2017-06-08] MEDS ORDERED: METOPROLOL TAR 25 MG TAB PO SCH (21:00)
[2017-06-08] MEDS: METOPROLOL TAR 25 MG TAB PO SCH (21:23)
[2017-06-08] MEDS: VENLAFAXINE HCL XR 75 MG CAP PO SCH (21:23)
[2017-06-08] MEDS: MIRTAZAPINE 15 MG TAB PO SCH (21:23)
[2017-06-08 21:34] LABS: Urine Appearance CLEAR; Urine Bilirubin NEGATIVE (NEG); Urine Blood 3+ (NEG); Urine Color YELLOW; Urine Glucose NEGATIVE (NEG); Urine Protein NEGATIVE (NEG); Urine Specific Gravity 1.015 (1.005-1.030); Urine Urobilinogen 0.2 mg/dL (0.2-1.0)
[2017-06-08 22:29] LABS: Urine Bacteria 20-50 /HPF (<20); Urine Culture Reflex Order REFLEXED; Urine Microscopic Reflex ORDER UMIC
[2017-06-09] MEDS: CEFTRIAXONE/SWI 1gm 1 GM/10 ML SYR IV SCH (07:44)
[2017-06-09] MEDS: hydroCHLOROthiazide 25 MG TAB PO SCH (07:45)
[2017-06-09] MEDS: SPIRONOLACTONE 25 MG TABLET PO SCH (07:45)
[2017-06-09] MEDS: VENLAFAXINE HCL XR 75 MG CAP PO SCH ×2 (07:46→21:07)
[2017-06-09] MEDS: METOPROLOL TAR 25 MG TAB PO SCH ×2 (07:46→21:06)
[2017-06-09] MEDS: HOME MED 1 EA UNK (Umeclidinium Brm/Vilanterol Tr [Anoro Ellipta 62.5-25 Mcg Inh] 1 PUFF) IH SCH (07:47)
[2017-06-09] MEDS ORDERED: HOME MED 1 EA UNK (Spironolact/Hydrochlorothiazid [Spironolactone-Hctz 25-25 Tab] 1 TAB) PO SCH (09:00)
[2017-06-09] MEDS: IPRATROPIUM BROM 0.5MG/2.5ML NEB PRN ×2 (15:21→21:19)
[2017-06-09] MEDS: AZITHROMYCIN IV 250 MG in NA CHLORIDE 0.9% 250 ML IVPB SCH (17:00)
--- NOTE | 2017-06-09 18:00 | P.PN ---
Subjective Date of Service: 06/09/17 Chief Complaint: SHORT OF BREATH, COUGH Subjective: No new changes (STILL COUGH, WHEEZES.) Review of Systems 10-point ROS is otherwise unremarkable General: Weakness, Malaise Respiratory: Cough Physical Examination - Vital Signs Temperature: 98.3 F Blood Pressure: 190/91 Pulse: 113 Respirations: 24 Pulse Ox (%): 97 - Physical Exam General: Alert, Moderate distress HEENT: Atraumatic, PERRLA, EOMI Neck: Supple, JVD not distended Respiratory: Diminished, Expiratory wheezes Cardiovascular: Regular rate/rhythm, Normal S1 S2 Gastrointestinal: Normal bowel sounds, No tenderness Musculoskeletal: No tenderness Integumentary: No rashes Neurological: Normal speech, Normal tone, Normal affect Lymphatics: No axilla or inguinal lymphadenopathy - Studies Medications List Reviewed: Yes Assessment And Plan - Current Problems (Diagnosis) (1) Pneumonia Onset Date: 06/08/17 Current Visit: Yes Status: Acute Plan: IV ABX NEBS SHE IS ALLERGIC TO LEVAQUIN PROGNOSIS IS GUARDED. Qualifiers: Pneumonia type: due to unspecified organism Laterality: bilateral (2) COPD exacerbation Onset Date: 07/09/16 Current Visit: No Status: Acute Plan: NEBS ORAL STEROIDS. IV STEROIDS NEBS CHANGE ABX TO CEFEPIME TO IMPROVE PSEDOMONAL COVERAGE. (3) Hyperthyroidism Current Visit: No Status: Chronic Plan: TSH HAS IMPROVED RESUME TAPAZOLE.
[2017-06-09] MEDS ORDERED: CEFEPIME/SWI 2gm 2 GM/20 ML SYR IV SCH (18:15)
[2017-06-09] MEDS: METHYLPREDNISOLONE 40 MG INJ IV SCH (18:29)
[2017-06-09] MEDS: LOSARTAN/HCTZ 50-12.5 PO SCH (18:29)
[2017-06-09] MEDS: CEFEPIME/SWI 2gm 2 GM/20 ML SYR IV SCH (18:37)
[2017-06-09] MEDS: MIRTAZAPINE 15 MG TAB PO SCH (21:06)
[2017-06-10] MEDS: METHYLPREDNISOLONE 40 MG INJ IV SCH ×5 (00:14→23:55)
[2017-06-10] MEDS: METOPROLOL TAR 25 MG TAB PO SCH ×2 (08:05→21:08)
[2017-06-10] MEDS: LOSARTAN/HCTZ 50-12.5 PO SCH (08:05)
[2017-06-10] MEDS: VENLAFAXINE HCL XR 75 MG CAP PO SCH ×2 (08:06→21:07)
[2017-06-10] MEDS: HOME MED 1 EA UNK (Umeclidinium Brm/Vilanterol Tr [Anoro Ellipta 62.5-25 Mcg Inh] 1 PUFF) IH SCH (08:09)
[2017-06-10] MEDS: IPRATROPIUM BROM 0.5MG/2.5ML NEB PRN (08:19)
[2017-06-10] MEDS: CEFEPIME/SWI 2gm 2 GM/20 ML SYR IV SCH ×2 (09:32→21:08)
--- NOTE | 2017-06-10 18:26 | P.PN ---
Subjective Date of Service: 06/10/17 Chief Complaint: SHORT OF BREATH, COUGH Subjective: Improving (STILL MOD WHEEZES) Review of Systems 10-point ROS is otherwise unremarkable General: Weakness, Malaise Respiratory: Cough, Shortness of Breath Physical Examination - Vital Signs Temperature: 98.1 F Blood Pressure: 129/82 Pulse: 105 Respirations: 18 Pulse Ox (%): 93 - Physical Exam General: Alert, Mild distress, Moderate distress HEENT: Atraumatic, PERRLA, EOMI Neck: Supple, JVD not distended Respiratory: Clear to auscultation bilaterally, Normal air movement Cardiovascular: Regular rate/rhythm, Normal S1 S2 Gastrointestinal: Normal bowel sounds, No tenderness Musculoskeletal: No tenderness, Kyphosis Integumentary: No rashes Neurological: Normal speech, Normal tone, Normal affect Lymphatics: No axilla or inguinal lymphadenopathy - Studies Medications List Reviewed: Yes Assessment And Plan - Current Problems (Diagnosis) (1) Pneumonia Onset Date: 06/08/17 Current Visit: Yes Status: Acute Plan: IV ABX NEBS SHE IS ALLERGIC TO LEVAQUIN PROGNOSIS IS GUARDED. ABX CHANGED IV STEROIDS AND SHE IS SOMEWHAT BETTER . Qualifiers: Pneumonia type: due to unspecified organism Laterality: bilateral (2) COPD exacerbation Onset Date: 07/09/16 Current Visit: No Status: Acute Plan: NEBS ORAL STEROIDS. IV STEROIDS NEBS CHANGE ABX TO CEFEPIME TO IMPROVE PSEDOMONAL COVERAGE. (3) Hyperthyroidism Current Visit: No Status: Chronic Plan: TSH HAS IMPROVED RESUME TAPAZOLE.
[2017-06-10] MEDS: MIRTAZAPINE 15 MG TAB PO SCH (21:08)
[2017-06-11] MEDS: METHYLPREDNISOLONE 40 MG INJ IV SCH ×3 (05:30→17:05)
[2017-06-11 07:53] LABS: Absolute Lymphocytes (CBC) 1.3 K/uL (0.7-4.9); Absolute Monocytes 0.5 K/uL (0.1-1.3); Absolute Neutrophil 17.1 K/uL (1.8-8.0); Basophils % 0.4 % (0-1.3); Hematocrit 45.1 % (36.0-45.0); MCH 29.5 pg (27.0-35.0); MCV 90.8 fL (80-100); MPV 8.9 fL (7.6-11.3); Monocytes % 2.8 % (3.3-12.3); RBC Red Blood Cell Count 4.96 M/uL (3.86-4.86)
[2017-06-11 08:14] LABS: Potassium 4.4 mEq/L (3.6-5.0)
[2017-06-11] MEDS: METOPROLOL TAR 25 MG TAB PO SCH ×2 (08:34→20:50)
[2017-06-11] MEDS: HOME MED 1 EA UNK (Umeclidinium Brm/Vilanterol Tr [Anoro Ellipta 62.5-25 Mcg Inh] 1 PUFF) IH SCH (08:36)
[2017-06-11] MEDS: CEFEPIME/SWI 2gm 2 GM/20 ML SYR IV SCH ×2 (08:38→20:50)
[2017-06-11] MEDS: LOSARTAN/HCTZ 50-12.5 PO SCH (08:38)
[2017-06-11] MEDS: VENLAFAXINE HCL XR 75 MG CAP PO SCH ×2 (08:38→20:50)
--- NOTE | 2017-06-11 09:11 | EKG ---
Test Date: 2017-06-11 Test Time: 07:46:23 [employer] MEASUREMENT RESULTS: Intervals: Rate: 92 LA: 146 QRSD: 80 QT: 390 QTc: 482 [place]: P: 55 LA: 146 QRS: 7 T: 57 INTERPRETIVE STATEMENTS: Sinus rhythm with premature supraventricular complexes Cannot rule out Anterior infarct, age undetermined Abnormal ECG Compared to ECG 06/07/2017 14:18:39 Atrial premature complex(es) now present Sinus arrhythmia no longer present Myocardial infarct finding still present Electronically Signed On 06-11-17 09:11:06 CDT by Paul Hoffman
--- NOTE | 2017-06-11 17:13 | P.PN ---
Subjective Date of Service: 06/11/17 Chief Complaint: SHORT OF BREATH, COUGH Subjective: Improving (BUT HAD EPISODE OF CHEST PAINAFTER WALKING TODAY ,NOW RESOLVED.) Review of Systems 10-point ROS is otherwise unremarkable General: Weakness, Malaise Respiratory: Cough, Shortness of Breath Physical Examination - Vital Signs Temperature: 98.8 F Blood Pressure: 131/79 Pulse: 111 Respirations: 16 Pulse Ox (%): 95 - Physical Exam General: Alert, Mild distress HEENT: Atraumatic, PERRLA, EOMI Neck: Supple, JVD not distended Respiratory: Diminished Cardiovascular: Regular rate/rhythm, Normal S1 S2 Gastrointestinal: Normal bowel sounds, No tenderness Musculoskeletal: No tenderness Integumentary: No rashes Neurological: Normal speech, Normal tone, Normal affect Lymphatics: No axilla or inguinal lymphadenopathy - Studies Medications List Reviewed: Yes Assessment And Plan - Current Problems (Diagnosis) (1) Pneumonia Onset Date: 06/08/17 Current Visit: Yes Status: Acute Plan: IV ABX NEBS SHE IS ALLERGIC TO LEVAQUIN PROGNOSIS IS GUARDED. ABX CHANGED IV STEROIDS AND SHE IS SOMEWHAT BETTER . Qualifiers: Pneumonia type: due to unspecified organism Laterality: bilateral (2) COPD exacerbation Onset Date: 07/09/16 Current Visit: No Status: Acute Plan: NEBS ORAL STEROIDS. IV STEROIDS NEBS CHANGE ABX TO CEFEPIME TO IMPROVE PSEDOMONAL COVERAGE. (3) Hyperthyroidism Current Visit: No Status: Chronic Plan: TSH HAS IMPROVED RESUME TAPAZOLE. (4) Chest pain Current Visit: Yes Status: Acute Plan: STABLE ANGINA CARDIAC CONSULT EKG ABN CE PENDING NO SIGNS OF ACUTE [place].
[2017-06-11] MEDS ORDERED: ENOXAPARIN 40 MG/0.4 ML SQ SCH (18:00)
[2017-06-11] MEDS: MIRTAZAPINE 15 MG TAB PO SCH (20:50)
[2017-06-12] MEDS: METHYLPREDNISOLONE 40 MG INJ IV SCH ×3 (00:31→12:00)
[2017-06-12 08:06] VITALS: TEMP 98.8
[2017-06-12] MEDS ORDERED: NITROGLYCERIN 0.4 MG/TAB SL PRN (08:49)
[2017-06-12] MEDS: HOME MED 1 EA UNK (Umeclidinium Brm/Vilanterol Tr [Anoro Ellipta 62.5-25 Mcg Inh] 1 PUFF) IH SCH (09:00)
[2017-06-12] MEDS ORDERED: ASPIRIN EC 81 MG TAB PO SCH (09:00)
--- NOTE | 2017-06-12 09:12 | CON ---
Reason For Consult: Chest pain. History Of Present Illness: Mrs. Pradhan who has chest pain over the years, yesterday she had a s ancelmo while she was in the hospital, she gets them every few months, it is central chest, it occurred while she was walking from the bathroom to her bed. It lasted 15 minutes. There were no EKG changes . She did not receive nitroglycerin. She has all the risk factors for coronary heart disease that a re necessary for us to be concerned about this, in spite of no change in her EKG or enzymes. Her EKG shows questionable anterior CO, not very different from old EKGs. She had a nuclear stress test a y ear and a half ago that was free of CAD. She has been off cigarette smoker. Her last cigarette was in March. She quit for a year, restarted for 6 weeks, quit in March 2017. She has severe obstru ctive lung disease, obesity, hypertension, anxiety. Outpatient medications are Anoro Ellipta, metopr olol, spironolactone with hydrochlorothiazide, methimazole, diazepam, loperamide, mirtazapine, venlaf axine, albuterol. Since being in the hospital, her TSH is 0.32, just barely on the low side. She chatman s underlying hyperthyroidism treated with methimazole, not with radioactive iodine. She has never chatman d a cardiac cath or a stent. She would prefer not to go that direction in general. Physical Examination: Vital Signs: She is 5 feet 1 inch, 161 pounds. Body mass index 31. Neck: No carotid bruit. Lungs: No crackles or wheezes. Breath sounds are decreased throughout. HEART: Within normal limits. Abdomen: Soft. Extremities: Trace edema. Distal pulses palpable, but diminished. EKG shows sinus rhythm, no injury pattern, poor R-wave progression. It looks like it could be pulmon mila disease pattern or an old CO. She has had an echocardiogram as recently as 2016 that was normal. Pharmacologic stress test also in 2016 that was normal. Impression: I think we should treat the patient with nitroglycerin as needed. Discharge her with a prescription I believe she is stable enough to be discharged home. She would prefer medical therapy so before engaging in a cardiac cath, if she were to consent, I would recommend we do a pharmacologic nuclear stress test that could be done in my office this coming week, even if she is discharged to y, Dr. Saldana elects to keep her over the weekend, we can do it on Wednesday here in the hospital. DELFINO Voice ID: [id number] Report ID: [id number]
[2017-06-12] MEDS: CEFEPIME/SWI 2gm 2 GM/20 ML SYR IV SCH (10:09)
[2017-06-12] MEDS: LOSARTAN/HCTZ 50-12.5 PO SCH (10:10)
[2017-06-12] MEDS: VENLAFAXINE HCL XR 75 MG CAP PO SCH (10:10)
[2017-06-12] MEDS: METOPROLOL TAR 25 MG TAB PO SCH (10:10)
[2017-06-12 12:33] VITALS: BP 138/77
[2017-06-12] MEDS ORDERED: PNEUMOCOCCAL VACCINE 0.5 ML IMVAC ONE (13:00)
[2017-06-12 14:10] VITALS: O2SAT 97
--- NOTE | 2017-06-13 12:15 | P.DS ---
Admission Date: 06/07/17 Discharge Date: 06/13/17 Disposition: ROUTINE DISCHARGE Discharge Condition: FAIR Reason for Admission: SHORT OF BREATH, COUGH - Problems (1) Pneumonia Onset Date: 06/08/17 Status: Acute Qualifiers: Pneumonia type: due to unspecified organism Laterality: bilateral (2) COPD exacerbation Onset Date: 07/09/16 Status: Acute (3) Hyperthyroidism Status: Chronic (4) Chest pain Status: Acute Brief History of Present Illness: MRS. FOWLER HAS SEVERE COPD, HYEPRTHRYOIDISM AND COMES WITH DYSPNEA, COUGH FOR A FEW DAYS. SHE IS NOW IN ER. REFUGIO HAD MILD CHEST PAIN, RESOLVED NOW. HER COPD EXACERBATION HAS CLEARED. SHE HAS NO MORE WHEEZES. SHE IS STABLE TO GO HOME. Vital Signs/Physical Exam: Temp Pulse Resp BP Pulse Ox 98.8 F 69 16 138/77 95 06/12/17 12:00 06/12/17 12:00 06/12/17 12:00 06/12/17 12:00 06/12/17 12:00 Laboratory Data at Discharge: WBC 19.0 K/uL (4.3-10.9) H D 06/11/17 07:42 Hgb 14.6 g/dL (12.0-15.0) 06/11/17 07:42 Hct 45.1 % (36.0-45.0) H 06/11/17 07:42 Plt Count 300 K/uL (152-406) 06/11/17 07:42 PT 12.4 SECONDS (9.5-12.5) 06/07/17 14:20 INR 1.05 06/07/17 14:20 Sodium 135 mEq/L (135-145) 06/11/17 07:42 Potassium 4.4 mEq/L (3.6-5.0) 06/11/17 07:42 BUN 46 mg/dL (6-20) H D 06/11/17 07:42 Creatinine 1.26 mg/dL (0.44-1.00) H 06/11/17 07:42 Glucose 170 mg/dL (65-120) H 06/11/17 07:42 Magnesium 2.1 mg/dL (1.8-2.5) 06/07/17 14:20 Total Bilirubin 0.9 mg/dL (0.3-1.2) 06/08/17 04:30 AST 21 IU/L (10-42) 06/08/17 04:30 ALT 17 IU/L (10-60) 06/08/17 04:30 Alkaline Phosphatase 69 IU/L (42-121) 06/08/17 04:30 Troponin I < 0.03 ng/mL (<0.03) 06/11/17 17:19 B-Natriuretic Peptide 215 pg/ml (<=100) H 06/08/17 04:30 Home Medications: Acetaminophen [Acetaminophen Extra Strength] 500 mg PO BID PRN 06/07/17 Albuterol Sulfate [Proair Hfa] 1 puff IH Q6HP PRN 06/07/17 Diazepam [Valium*] 2 mg PO BEDTIME PRN 06/07/17 Loperamide [Imodium] 2 mg PO Q4HP PRN 06/07/17 Methimazole [Tapazole*] 10 mg PO TID 06/07/17 Metoprolol Tartrate [Lopressor*] 25 mg PO BID 06/07/17 Mirtazapine 15 mg PO BEDTIME 06/07/17 Spironolact/Hydrochlorothiazid [Spironolactone-Hctz 25-25 Tab] 1 tab PO DAILY Umeclidinium Brm/Vilanterol Tr [Anoro Ellipta 62.5-25 Mcg INH] 1 puff IH DAILY 06/07/17 Venlafaxine HCl [Venlafaxine HCl ER] 75 mg PO BID 06/07/17 Cefuroxime [Ceftin] 250 mg PO BID #14 tab 06/12/17 Nitroglycerin 0.4 mg SL Q5MX3, Q15MX1, Q30M #20 tab.subl 06/12/17 Prednisone [Deltasone] 5 mg PO DAILY #100 tab 06/12/17 New Medications: Cefuroxime [Ceftin] 250 mg PO BID #14 tab Nitroglycerin 0.4 mg SL Q5MX3, Q15MX1, Q30M #20 tab.subl Prednisone [Deltasone] 5 mg PO DAILY #100 tab Diet: Regular Followup: Slade Saldana MD [ACTIVE - CAN ADMIT] - 1-2 Weeks (call office on Wednesday to make an appt. in 1-2 weeks. ) Paul Hoffman MD [ACTIVE - CAN ADMIT] - (call the office on Wednesday to schedule outpatient testing. )
== END 2017-06-12 14:23 | disposition home or self-care (01) | DRG 194 ==
LOC: ER 14:07 → ERHOLD 16:40 → 4TH 18:20
PROVIDERS: ADMIT Internal Medicine; ATTEND Internal Medicine
DX: J18.9 Pneumonia, unspecified organism (principal); J44.1 Chronic obstructive pulmonary disease with (acute) exacerbation; R07.9 Chest pain, unspecified; E05.90 Thyrotoxicosis, unspecified without thyrotoxic crisis or storm; I10 Essential (primary) hypertension; E66.9 Obesity, unspecified; F41.9 Anxiety disorder, unspecified; I25.2 Old myocardial infarction; Z23 Encounter for immunization
CPT/HCPCS: 36415; 71045; 80048; 80053; 80076; 81003; 81015; 83605; 83735; 83880; 84443; 84484; 85025; 85610; 87040; 87086; 87088; 87493; 90670; 93005; 94640; 94760; 96374; 96375; 99285; G0009; J0456; J0692; J0696; J1650; J2920

== ENCOUNTER 2017-09-20 16:27 | Inpatient (IN) | payer OTHER, MEDICARE ==
--- OUTSIDE RECORDS SUMMARY | 2017-09-20 16:34 | XMS REPORT ---
:1935 [facility] [address]. [address] [place] [id number] Care Team Providers Name Role Phone HAILEE DOWELL Unavailable Unavailable Problems This patient has no known problems. Allergies, Adverse Reactions, Alerts This patient has no known allergies or adverse reactions. Medications This patient has no known medications. Results Test Description Test Time Test Comments Text Results Atomic Results Result Comments BLOOD CULTURE 2017-01-15 00:00:00 Test Item Value Reference Range Comments CULTURE (BEAKER) (test tygq=7574) No growth in 5 days BLOOD [id number] 00:00:00 Test Item Value Reference Range Comments CULTURE (BEAKER) (test otft=7968) No growth in 5 days CLOSTRIDIUM DIFFICILE TOXIN [id number] 17:09:00 Test Item Value Reference Range Comments CLOSTRIDIUM DIFFICILE TOXIN, PCR (BEAKER) (test Not Detected Not Detected raha=2513) This qualitative real-time polymerase chain reaction assay [...] a positive result is not recommended.BASIC METABOLIC [id number] 10:06:00 Test Item Value Reference Range Comments SODIUM (BEAKER) (test 138 meq/L 136-145 vimi=404) POTASSIUM (BEAKER) (test 4.2 meq/L 3.5-5.1 Specimen slightly cvqf=186) hemolyzed CHLORIDE (BEAKER) (test 104 meq/L 98-107 dwac=054) CO2 (BEAKER) (test 24 meq/L 22-29 baie=467) BLOOD UREA NITROGEN 26 mg/dL 7-21 (BEAKER) (test xevz=540) CREATININE (BEAKER) (test 0.94 mg/dL 0.57-1.25 Specimen slightly gxtt=233) hemolyzed GLUCOSE RANDOM (BEAKER) 100 mg/dL 70-105 (test pprz=924) CALCIUM (BEAKER) (test 8.8 mg/dL 8.4-10.2 duay=320) EGFR (BEAKER) (test 57 mL/min/1.73 sq m ESTIMATED GFR IS NOT vmad=9867) ACCURATE CREATININE CLEARANCE IN PREDICTING GLOMERULAR FILTRATION RATE. ESTIMATED GFR IS NOT APPLICABLE FOR DIALYSIS PATIENTS. CBC W/PLT COUNT & AUTO [id number] 09:48:00 Test Item Value Reference Range Comments WHITE BLOOD CELL COUNT 12.9 K/ L 3.5-10.5 (BEAKER) (test azle=326) RED BLOOD CELL COUNT (BEAKER) 4.59 M/ L 3.93-5.22 (test bnzb=030) HEMOGLOBIN (BEAKER) (test 13.4 GM/DL 11.2-15.7 gbzc=289) HEMATOCRIT (BEAKER) (test 43.1 % 34.1-44.9 bhbj=381) MEAN CORPUSCULAR VOLUME 93.9 fL 79.4-94.8 (BEAKER) (test lqpq=931) MEAN CORPUSCULAR HEMOGLOBIN 29.2 pg 25.6-32.2 (BEAKER) (test qkit=234) MEAN CORPUSCULAR HEMOGLOBIN 31.1 GM/DL 32.2-35.5 CONC (BEAKER) (test gzah=328) RED CELL DISTRIBUTION WIDTH 12.8 % 11.7-14.4 (BEAKER) (test xbsj=864) PLATELET COUNT (BEAKER) (test 286 K/CU MM 150-450 .Discordant from previous waae=673) results. Clinical correlation suggested. MEAN PLATELET VOLUME (BEAKER) 10.3 fL 9.4-12.3 (test clgg=227) NUCLEATED RED BLOOD CELLS 0 /100 WBC 0-0 (BEAKER) (test fpvc=739) NEUTROPHILS RELATIVE PERCENT 70 % (BEAKER) (test ybnc=583) LYMPHOCYTES RELATIVE PERCENT 17 % (BEAKER) (test ymii=247) MONOCYTES RELATIVE PERCENT 8 % (BEAKER) (test lcjo=730) EOSINOPHILS RELATIVE PERCENT 3 % (BEAKER) (test ykaa=499) BASOPHILS RELATIVE PERCENT 1 % (BEAKER) (test lspe=608) NEUTROPHILS ABSOLUTE COUNT 9.04 K/ L 1.56-6.13 (BEAKER) (test cktj=837) LYMPHOCYTES ABSOLUTE COUNT 2.22 K/ L 1.18-3.74 (BEAKER) (test jsnd=221) MONOCYTES ABSOLUTE COUNT 0.99 K/ L 0.24-0.36 (BEAKER) (test vmsk=312) EOSINOPHILS ABSOLUTE COUNT 0.32 K/ L 0.04-0.36 (BEAKER) (test cgrw=936) BASOPHILS ABSOLUTE COUNT 0.15 K/ L 0.01-0.08 (BEAKER) (test oqgf=741) IMMATURE 1 % 0-1 GRANULOCYTES-RELATIVE PERCENT (BEAKER) (test ntdg=2428) RAD, FOOT, 2 VIEWS, [id number] 16:52:00Reason for exam:->pain with ambulationFINAL REPORT Radiograph [...] Peterson Verified Date/Time: 01/12/2017 16:52:45 Reading Location: [address] Consult Reading Room T4, [id number] 16:26:00 Test Item Value Reference Range Comments FREE T4 (BEAKER) (test qcdn=299) 1.12 ng/dL 0.70-1.48 TSH/FREE T4 IF [id number] 15:46:00 Test Item Value Reference Range Comments THYROID STIMULATING HORMONE (BEAKER) (test 0.03 uIU/mL 0.35-4.94 cgsz=051) BASIC METABOLIC [id number] 15:35:00 Test Item Value Reference Range Comments SODIUM (BEAKER) (test 136 meq/L 136-145 xxxg=594) POTASSIUM (BEAKER) (test 4.1 meq/L 3.5-5.1 xuqs=985) CHLORIDE (BEAKER) (test 99 meq/L 98-107 vvcw=232) CO2 (BEAKER) (test 24 meq/L 22-29 tlgn=706) BLOOD UREA NITROGEN 32 mg/dL 7-21 (BEAKER) (test jguc=269) CREATININE (BEAKER) (test 1.12 mg/dL 0.57-1.25 vnmm=911) GLUCOSE RANDOM (BEAKER) 164 mg/dL 70-105 (test nvlz=977) CALCIUM (BEAKER) (test 10.2 mg/dL 8.4-10.2 kksq=155) EGFR (BEAKER) (test 46 mL/min/1.73 sq m ESTIMATED GFR IS NOT ztyd=8904) ACCURATE CREATININE CLEARANCE IN PREDICTING GLOMERULAR FILTRATION RATE. ESTIMATED GFR IS NOT APPLICABLE FOR DIALYSIS PATIENTS. CBC W/PLT COUNT & AUTO [id number] 15:06:00 Test Item Value Reference Range Comments WHITE BLOOD CELL COUNT (BEAKER) (test dzbt=915) 17.4 K/ L 3.5-10.5 RED BLOOD CELL COUNT (BEAKER) (test tuak=422) 4.93 M/ L 3.93-5.22 HEMOGLOBIN (BEAKER) (test iafy=425) 14.0 GM/DL 11.2-15.7 HEMATOCRIT (BEAKER) (test vtzi=507) 44.8 % 34.1-44.9 MEAN CORPUSCULAR VOLUME (BEAKER) (test fxtr=812) 90.9 fL 79.4-94.8 MEAN CORPUSCULAR HEMOGLOBIN (BEAKER) (test 28.4 pg 25.6-32.2 npdq=893) MEAN CORPUSCULAR HEMOGLOBIN CONC (BEAKER) (test 31.3 GM/DL 32.2-35.5 pusp=542) RED CELL DISTRIBUTION WIDTH (BEAKER) (test 12.9 % 11.7-14.4 bhed=750) PLATELET COUNT (BEAKER) (test bubl=317) 360 K/CU MM 150-450 MEAN PLATELET VOLUME (BEAKER) (test xoed=418) 10.5 fL 9.4-12.3 NUCLEATED RED BLOOD CELLS (BEAKER) (test 0 /100 WBC 0-0 qweg=360) NEUTROPHILS RELATIVE PERCENT (BEAKER) (test 82 % akgr=882) LYMPHOCYTES RELATIVE PERCENT (BEAKER) (test 11 % thuj=231) MONOCYTES RELATIVE PERCENT (BEAKER) (test 4 % cyvz=274) EOSINOPHILS RELATIVE PERCENT (BEAKER) (test 0 % kkii=052) BASOPHILS RELATIVE PERCENT (BEAKER) (test 1 % txcy=201) NEUTROPHILS ABSOLUTE COUNT (BEAKER) (test 14.33 K/ L 1.56-6.13 vjaj=972) LYMPHOCYTES ABSOLUTE COUNT (BEAKER) (test 1.97 K/ L 1.18-3.74 cjem=967) MONOCYTES ABSOLUTE COUNT (BEAKER) (test 0.71 K/ L 0.24-0.36 lhza=369) EOSINOPHILS ABSOLUTE COUNT (BEAKER) (test 0.05 K/ L 0.04-0.36 zvgs=454) BASOPHILS ABSOLUTE COUNT (BEAKER) (test 0.16 K/ L 0.01-0.08 qsko=852) IMMATURE GRANULOCYTES-RELATIVE PERCENT (BEAKER) 1 % 0-1 (test dmdm=7101) URINE [id number] 08:21:00 Test Item Value Reference Range Comments CULTURE (BEAKER) (test fxok=4984) Amikacin (test code=1) Ampicillin + Sulbactam (test code=6) Aztreonam (test code=32) Cefepime (test code=51) Cefoxitin (test code=68) Ceftazidime (test code=27) Ceftriaxone (test code=52) Ertapenem (test code=38) Gentamicin (test code=18) Levofloxacin (test code=22) Meropenem (test code=34) Nitrofurantoin (test code=23) Piperacillin + Tazobactam (test code=29) Tetracycline (test code=2) Tobramycin (test code=25) Trimethoprim + Sulfamethoxazole (test code=47) CULTURE (BEAKER) (test mznb=3550) >100,000 col/mL Proteus mirabilis <10,000 col/mL skin ranjith<10,000 col/mL gram negative rods of a second typeMR, BRAIN, WITHOUT [id number] 16:03:00Reason for exam:->Ischemic Stroke EvaluationFINAL REPORT MRI [...] [place] [facility] Verified Date/Time: 16:03:04 Reading Location: [address] Neuro Reading Room URINALYSIS W/ [id number] 15:35:00 Test Item Value Reference Range Comments COLOR (BEAKER) (test mpsw=958) Light Yellow CLARITY (BEAKER) (test kprp=425) Hazy SPECIFIC GRAVITY UA (BEAKER) (test npcu=339) 1.010 1.001-1.035 PH UA (BEAKER) (test swnm=586) 8.0 5.0-8.0 PROTEIN UA (BEAKER) (test lunr=163) 20 mg/dL Negative GLUCOSE UA (BEAKER) (test bgas=820) Negative Negative KETONES UA (BEAKER) (test pfpu=692) Negative Negative BILIRUBIN UA (BEAKER) (test ywbl=019) Negative Negative BLOOD UA (BEAKER) (test jjql=894) Negative Negative NITRITE UA (BEAKER) (test xyat=422) Negative Negative LEUKOCYTE ESTERASE UA (BEAKER) (test rfzj=388) Large Negative UROBILINOGEN UA (BEAKER) (test jlfw=212) 0.2 mg/dL 0.2-1.0 RBC UA (BEAKER) (test fmsd=859) 2 /HPF WBC UA (BEAKER) (test jrbr=291) 87 /HPF SQUAMOUS EPITHELIAL (BEAKER) (test tdde=003) 3 /HPF SOURCE(BEAKER) (test gukz=9781) Urine, Voided URINALYSIS W/ REFLEX URINE [id number] 15:35:00 Test Item Value Reference Range Comments COLOR (BEAKER) (test irsj=188) Light Yellow CLARITY (BEAKER) (test utyq=369) Hazy SPECIFIC GRAVITY UA (BEAKER) (test uqya=506) 1.010 1.001-1.035 PH UA (BEAKER) (test dwjp=995) 8.0 5.0-8.0 PROTEIN UA (BEAKER) (test zdzg=374) 20 mg/dL Negative GLUCOSE UA (BEAKER) (test gksn=239) Negative Negative KETONES UA (BEAKER) (test ezgr=145) Negative Negative BILIRUBIN UA (BEAKER) (test hlbx=629) Negative Negative BLOOD UA (BEAKER) (test clgc=989) Negative Negative NITRITE UA (BEAKER) (test gwqo=825) Negative Negative LEUKOCYTE ESTERASE UA (BEAKER) (test yabx=788) Large Negative UROBILINOGEN UA (BEAKER) (test pnlq=909) 0.2 mg/dL 0.2-1.0 RBC UA (BEAKER) (test fksx=703) 2 /HPF WBC UA (BEAKER) (test kvui=248) 87 /HPF SQUAMOUS EPITHELIAL (BEAKER) (test poez=476) 3 /HPF SOURCE(BEAKER) (test npjm=6134) Urine, Voided [id number] 14:30:00 Test Item Value Reference Range Comments RPR SCREEN (BEAKER) (test pmga=085) Nonreactive Nonreactive HEMOGLOBIN [id number] 10:58:00 Test Item Value Reference Range Comments HEMOGLOBIN A1C (BEAKER) (test gpkz=930) 5.8 % 4.3-6.1 SEDIMENTATION [id number] 10:44:00 Test Item Value Reference Range Comments SEDIMENTATION RATE, ERYTHROCYTE (BEAKER) (test 52 mm/HR 0-40 jzpl=785) T4, [id number] 09:16:00 Test Item Value Reference Range Comments FREE T4 (BEAKER) (test qwct=210) 0.94 ng/dL 0.70-1.48 TSH/FREE T4 IF [id number] 08:42:00 Test Item Value Reference Range Comments THYROID STIMULATING HORMONE (BEAKER) (test 0.05 uIU/mL 0.35-4.94 zapq=334) VITAMIN B12 AND [id number] 08:37:00 Test Item Value Reference Range Comments VITAMIN B12 (BEAKER) (test ehgi=624) 829 pg/mL 213-816 FOLATE (BEAKER) (test luiv=052) 15.9 ng/mL >=7.0 [id number] 08:36:00 Test Item Value Reference Range Comments HOMOCYSTEINE (BEAKER) (test tayw=491) 10.2 umol/L 5.1-15.4 LIPID [id number] 08:26:00 Test Item Value Reference Range Comments TRIGLYCERIDES (BEAKER) (test yguu=003) 86 mg/dL CHOLESTEROL (BEAKER) (test jyud=744) 194 mg/dL HDL CHOLESTEROL (BEAKER) (test ueyv=899) 66 mg/dL LDL CHOLESTEROL CALCULATED (BEAKER) (test 111 mg/dL crsz=688) Triglyceride Reference Range: Low Risk <150 Borderline 150- 199 High Risk 200-499 Very High Risk >=500Cholesterol Reference Range: Low Risk <200 Borderline 200-239 High Risk > 240HDL Cholesterol Reference Range: Low Risk >=60 High Risk <40LDL Cholesterol Reference Range: Optimal <100 Near Optimal 100-129 Borderline 130-159 High 160-189 Very High >=190 FastingBASIC METABOLIC [id number] 08:26:00 Test Item Value Reference Range Comments SODIUM (BEAKER) (test 136 meq/L 136-145 ijvv=320) POTASSIUM (BEAKER) (test 4.7 meq/L 3.5-5.1 qlgj=366) CHLORIDE (BEAKER) (test 99 meq/L 98-107 pphn=850) CO2 (BEAKER) (test 24 meq/L 22-29 dfbb=656) BLOOD UREA NITROGEN 27 mg/dL 7-21 (BEAKER) (test njlz=782) CREATININE (BEAKER) (test 1.04 mg/dL 0.57-1.25 ctxa=112) GLUCOSE RANDOM (BEAKER) 133 mg/dL 70-105 (test ixvd=415) CALCIUM (BEAKER) (test 8.8 mg/dL 8.4-10.2 ityq=390) EGFR (BEAKER) (test 51 mL/min/1.73 sq m ESTIMATED GFR IS NOT ozkt=4743) ACCURATE CREATININE CLEARANCE IN PREDICTING GLOMERULAR FILTRATION RATE. ESTIMATED GFR IS NOT APPLICABLE FOR DIALYSIS PATIENTS. FastingHEPATIC FUNCTION [id number] 08:26:00 Test Item Value Reference Range Comments TOTAL PROTEIN (BEAKER) (test udjq=793) 6.8 gm/dL 6.0-8.3 ALBUMIN (BEAKER) (test lqhe=1328) 3.4 g/dL 3.5-5.0 BILIRUBIN TOTAL (BEAKER) (test aesm=818) 0.6 mg/dL 0.2-1.2 BILIRUBIN DIRECT (BEAKER) (test xdaz=940) 0.2 mg/dL 0.1-0.5 ALKALINE PHOSPHATASE (BEAKER) (test cdqm=730) 67 U/L 40-150 AST (SGOT) (BEAKER) (test cwkj=432) 16 U/L 5-34 ALT (SGPT) (BEAKER) (test eemj=267) 11 U/L 6-55 FastingCREATINE KINASE (CK), TOTAL AND [id number] 08:26:00 Test Item Value Reference Range Comments CREATINE KINASE TOTAL (BEAKER) (test ypux=122) 30 U/L 29-200 CREATINE KINASE-MB (BEAKER) (test lucy=743) 0.8 ng/mL 0.0-6.6 CREATINE KINASE-MB INDEX (BEAKER) (test eija=092) 2.7 % CK-MB Reference Range:<6.7 Normal6.7-10.0 Borderline>10.0 AbnormalFastingFastingC-REACTIVE [id number] 08:26:00 Test Item Value Reference Range Comments C-REACTIVE PROTEIN (BEAKER) (test ksox=217) 1.74 mg/dL 0.00-0.50 FastingCBC W/PLT COUNT & AUTO [id number] 07:57:00 Test Item Value Reference Range Comments WHITE BLOOD CELL COUNT (BEAKER) (test gtyn=508) 16.6 K/ L 3.5-10.5 RED BLOOD CELL COUNT (BEAKER) (test ehgx=363) 4.21 M/ L 3.93-5.22 HEMOGLOBIN (BEAKER) (test lsti=114) 12.3 GM/DL 11.2-15.7 HEMATOCRIT (BEAKER) (test fohl=847) 38.4 % 34.1-44.9 MEAN CORPUSCULAR VOLUME (BEAKER) (test kwfa=643) 91.2 fL 79.4-94.8 MEAN CORPUSCULAR HEMOGLOBIN (BEAKER) (test 29.2 pg 25.6-32.2 riam=055) MEAN CORPUSCULAR HEMOGLOBIN CONC (BEAKER) (test 32.0 GM/DL 32.2-35.5 hoig=368) RED CELL DISTRIBUTION WIDTH (BEAKER) (test 12.9 % 11.7-14.4 wrwq=296) PLATELET COUNT (BEAKER) (test dfli=849) 296 K/CU MM 150-450 MEAN PLATELET VOLUME (BEAKER) (test kdum=868) 10.3 fL 9.4-12.3 NUCLEATED RED BLOOD CELLS (BEAKER) (test 0 /100 WBC 0-0 bazi=263) NEUTROPHILS RELATIVE PERCENT (BEAKER) (test 78 % bdzj=769) LYMPHOCYTES RELATIVE PERCENT (BEAKER) (test 15 % vzrk=734) MONOCYTES RELATIVE PERCENT (BEAKER) (test 5 % tbab=663) EOSINOPHILS RELATIVE PERCENT (BEAKER) (test 1 % pcqy=546) BASOPHILS RELATIVE PERCENT (BEAKER) (test 1 % ocme=320) NEUTROPHILS ABSOLUTE COUNT (BEAKER) (test 12.92 K/ L 1.56-6.13 hwwy=876) LYMPHOCYTES ABSOLUTE COUNT (BEAKER) (test 2.40 K/ L 1.18-3.74 rgmx=385) MONOCYTES ABSOLUTE COUNT (BEAKER) (test 0.90 K/ L 0.24-0.36 xofz=656) EOSINOPHILS ABSOLUTE COUNT (BEAKER) (test 0.08 K/ L 0.04-0.36 wmgm=482) BASOPHILS ABSOLUTE COUNT (BEAKER) (test 0.11 K/ L 0.01-0.08 ruhk=337) IMMATURE GRANULOCYTES-RELATIVE PERCENT (BEAKER) 1 % 0-1 (test [id number]) TROPONIN [id number] 07:47:00 Test Item Value Reference Range Comments TROPONIN I (BEAKER) (test wtnf=211) 0.01 ng/mL 0.00-0.03 Troponin I (TnI) levels [...]
--- OUTSIDE RECORDS SUMMARY | 2017-09-20 16:34 | XMS REPORT | Clinical Summary ---
:1935 Author Organization [facility] Address [address] [place] [address] Phone Care Team Providers Name Role Phone Unavailable Primary Care Provider Unavailable Allergies Active Allergy Reactions Severity Noted Date Comments Levofloxacin Nausea And Vomiting 11/06/2016 Current Medications Prescription Sig. Disp. Refills Start Date End Date Status albuterol HFA Inhale 2 puffs by Active (PROAIR HFA) 90 mouth via inhaler mcg/actuation every 6 (six) inhaler hours as needed for Wheezing. HYDROcodone-acetam Take 1 tablet by Active inophen (NORCO mouth 2 (two) 5-325) 5-325 mg times daily as per tablet needed for Pain. diazePAM (VALIUM) Take 5 mg by mouth Active 5 MG tablet 2 (two) times daily as needed for Anxiety. mirtazapine Take 15 mg by Active (REMERON) 15 MG mouth nightly. tablet venlafaxine Take 75 mg by Active (EFFEXOR-XR) 75 MG mouth daily. 24 hr capsule umeclidinium-vilan Inhale 1 puff by Active terol (ANORO mouth via inhaler ELLIPTA) 62.5-25 daily. mcg/actuation DsDv predniSONE Take 5 mg by mouth Active (DELTASONE) 5 MG daily. tablet clotrimazole-betam Apply topically 2 Active ethasone (two) times daily. (LOTRISONE) 1-0.05 % cream methIMAzole Take 1.5 tablets 0 01/13/2017 Active (TAPAZOLE) 10 MG (15 mg total) by tablet mouth daily. metoprolol Take 2 tablets (50 0 01/13/2017 Active (LOPRESSOR) 25 MG mg total) by mouth tablet 2 (two) times daily. aspirin 81 MG EC Take 1 tablet (81 0 01/14/2017 01/15/20 Active tablet mg total) by mouth 18 daily. spironolactone-hyd Take 1 tablet by 0 01/13/2017 Active roCHLOROthiazide mouth daily. (ALDACTAZIDE) 25-25 mg per tablet metoprolol Take 25 mg by 01/14/20 Discontinued (LOPRESSOR) 25 MG mouth 2 (two) 17 tablet times daily. methIMAzole Take 10 mg by 01/14/20 Discontinued (TAPAZOLE) 10 MG mouth 3 (three) 17 tablet times daily. spironolactone-hyd Take 1 tablet by 01/14/20 Discontinued roCHLOROthiazide mouth daily. 17 (ALDACTAZIDE) 25-25 mg per tablet metroNIDAZOLE Take 500 mg by 01/14/20 Discontinued (FLAGYL) 500 MG mouth 3 (three) 17 tablet times daily. nystatin, bulk, 100,000 Units by 01/14/20 Discontinued (NYSTATIN, Miscellaneous 17 TOPICAL,) 50 route 2 (two) million unit Powd times daily. cefdinir (OMNICEF) Take 1 capsule 6 capsule 0 01/13/2017 01/17/20 300 MG capsule (300 mg total) by 17 mouth 2 (two) times daily for 3 days. Active Problems Problem Noted Date Acute cystitis without hematuria 01/10/2017 TIA (transient ischemic attack) 01/09/2017 Uncontrolled hypertension 01/09/2017 Hyperthyroidism 01/09/2017 COPD (chronic obstructive pulmonary disease) ([facility]) 01/09/2017 Coronary artery disease 01/09/2017 Headache 01/09/2017 Leukocytosis 01/09/2017 Word finding difficulty 01/09/2017 Resolved Problems Problem Noted Date Resolved Date CVA (cerebral vascular accident) ([facility]) 01/09/2017 01/09/2017 Dysarthria 01/09/2017 01/09/2017 Encounters Date Type Specialty Care Team Description 01/09/2017 - Hospital Encounter General Internal Pathak, Marvin, Chronic obstructive 01/13/2017 Medicine pulmonary diseaseMonica Kayley unspecified COPD Stephie Choudhary, type ([facility]);Coronary MD artery disease Marlys Diaz, involving [place] and [place] MD heart without angina pectoris, unspecified vessel or lesion type;Cerebrovascular accident (CVA), unspecified mechanism ([facility]);Hyperthyroidis m;Uncontrolled hypertension;Dysarth randall;Leukocytosis, unspecified type;Acute cystitis without hematuria;Tachycardi a;Altered mental status, unspecified altered mental status type 01/09/2017 Orders Only General Internal Medicine after 09/19/2016 Immunizations Name Dates Previously Given Next Due Pneumococcal Polysaccharide (Pneumovax) 01/11/2017 Social History Tobacco Use Types Packs/Day Years Used Date Current Some Day Smoker 0.5 Smokeless Tobacco: Never Used Sex Assigned at Date Recorded Not on file Last Filed Vital Signs Vital Sign Reading Time Taken Blood Pressure 178/77 01/13/2017 11:41 AM CDT Pulse 69 01/13/2017 11:41 AM CDT Temperature 36 C (96.8 F) 01/13/2017 11:41 AM CDT Respiratory Rate 18 01/13/2017 11:41 AM CDT Oxygen Saturation 96% 01/13/2017 11:41 AM CDT Inhaled Oxygen Concentration - - Weight 79.4 kg (175 lb) 01/09/2017 3:57 AM CDT Height 154.9 cm (5' 1") 01/09/2017 3:57 AM CDT Body Mass Index 33.07 01/09/2017 3:57 AM CDT Plan of Treatment Not on file Results RHYTHM STRIP - SCAN (01/21/2017 8:20 AM)Only the most recent of4 resultswithin the time period is included.EKG-SCANNED (01/14/2017 10:23 AM)Clostridium difficile Toxin PCR (01/13/2017 9:31 AM) Component Value Ref Range C.Diff Toxin, PCR Not Detected Not Detected Specimen Performing Laboratory Stool [facility] [address] This qualitative real-time polymerase chain reaction assay detects the tcdB gene, encoded on the C.difficile pathogenicity locus (PaLoc).The product of tcdB , toxin B, is a cytotoxin essential for causing C.difficile-associated disease (CDAD) and is found in virtually all toxigenic C.difficile. This assay is performed for patients suspected of having either community- acquired or nosocomial CDAD.Accordingly, only symptomatic patients should be tested and formed stools will be rejected unless ileus is present (i.e., specified when ordering).Patients may be colonized with toxigenic C.difficile strains not causing active disease; therefore, clinical correlation is needed when deciding how to manage patients with a positive test result. The assay has not been validated as a test of cure as amplifiable nucleic acid may persist after effective treatment; therefore, follow-up testing of a positive result is not recommended. CBC with platelet count + automated diff (01/13/2017 9:24 AM)Only the most recent of3 resultswithin the time period is included. Component Value Ref Range WBC 12.9 (H) 3.5 - 10.5 K/L RBC 4.59 3.93 - 5.22 M/L Hemoglobin 13.4 11.2 - 15.7 GM/DL Hematocrit 43.1 34.1 - 44.9 % MCV 93.9 79.4 - 94.8 fL MCH 29.2 25.6 - 32.2 pg MCHC 31.1 (L) 32.2 - 35.5 GM/DL RDW 12.8 11.7 - 14.4 % Platelets 286Comment: .Discordant from 150 - 450 K/CU MM previous results. Clinical correlation suggested. MPV 10.3 9.4 - 12.3 fL nRBC 0 0 - 0 /100 WBC % Neutros 70 % % Lymphs 17 % % Monos 8 % % Eos 3 % % Baso 1 % # Neutros 9.04 (H) 1.56 - 6.13 K/L # Lymphs 2.22 1.18 - 3.74 K/L # Monos 0.99 (H) 0.24 - 0.36 K/L # Eos 0.32 0.04 - 0.36 K/L # Baso 0.15 (H) 0.01 - 0.08 K/L Immature Granulocytes-Relative 1 0 - 1 % Specimen Performing Laboratory Blood - Arm, Right [facility] [address] [address] CBC with platelet count + automated diff (01/13/2017 9:24 AM)Only the most recent of3 resultswithin the time period is included. Specimen Performing Laboratory Blood Narrative The following orders were created for panel order CBC with platelet count + automated diff. Procedure Abnormality Status --------- ------ CBC with platelet count ...[[id number]]AbnormalFinal result Please view results for these tests on the individual orders. Basic Metabolic Panel (01/13/2017 9:24 AM)Only the most recent of3 resultswithin the time period is included. Component Value Ref Range Sodium 138 136 - 145 meq/L Potassium 4.2Comment: Specimen slightly hemolyzed 3.5 - 5.1 meq/L Chloride 104 98 - 107 meq/L CO2 24 22 - 29 meq/L BUN 26 (H) 7 - 21 mg/dL Creatinine 0.94Comment: Specimen slightly hemolyzed 0.57 - 1.25 mg/dL Glucose 100 70 - 105 mg/dL Calcium 8.8 8.4 - 10.2 mg/dL EGFR 57Comment: ESTIMATED GFR IS NOT ACCURATE mL/min/1.73 sq m CREATININE CLEARANCE IN PREDICTING GLOMERULAR FILTRATION RATE. ESTIMATED GFR IS NOT APPLICABLE FOR DIALYSIS PATIENTS. Specimen Performing Laboratory Blood - Arm, [address] [address] ECG 12 lead (01/12/2017 6:09 PM)Only the most recent of2 resultswithin the time period is included. Specimen Performing Laboratory GE MUSE Narrative Ventricular Rate 95 BPM Atrial Rate 95 BPM P-R Interval 150 ms QRS Duration 80 ms Q-T Interval 366 ms QTC Calculation(Bazett) 459 ms P [place] 67 degrees R [place] 5 degrees T [place] 44 degrees Sinus rhythm with Premature atrial complexes Inferior infarct (cited on or before 09-JAN-2017) Abnormal ECG When compared with ECG of 09-JAN-2017 09:40, Old anterior infarct is no longer suspected QT has shortened Confirmed by MD KAVITA, SAILAJA ([id number]) on 01/13/2017 7:29:20 AM Procedure Note Interface, External Ris In - 01/13/2017 7:29 AM CDT Ventricular Rate 95 BPM Atrial Rate 95 BPM P-R Interval 150 ms QRS Duration 80 ms Q-T Interval 366 ms QTC Calculation(Bazett) 459 ms P [place] 67 degrees R [place] 5 degrees T [place] 44 degrees Sinus rhythm with Premature atrial complexes Inferior infarct (cited on or before 09-JAN-2017) Abnormal ECG When compared with ECG of 09-JAN-2017 09:40, Old anterior infarct is no longer suspected QT has shortened Confirmed by MD WALLS YOCHAI ([id number]) on 01/13/2017 7:29:20 AM TSH/Free T4 If Indicated (01/12/2017 2:34 PM)Only the most recent of2 resultswithin the time period is included. Component Value Ref Range TSH 0.03 (L) 0.35 - 4.94 uIU/mL Specimen Performing Laboratory Blood [address] [address] T4, free (01/12/2017 2:34 PM)Only the most recent of2 resultswithin the time period is included. Component Value Ref Range Free T4 1.12 0.70 - 1.48 ng/dL Specimen Performing Laboratory Blood [address] [address] XR foot 2 views right (01/12/2017 1:53 PM) Specimen Performing Laboratory GE RIS Narrative FINAL REPORT Radiograph of the right foot Reason for exam: pain with ambulation Comparison:No priors Discussion: Three views of the right foot are obtained. Bony mineralization is decreased. There is mild osteoarthritic change. No evidence of acute fracture, or dislocation. No bony erosion, or periosteal reaction is identified. The visualized soft tissues are unremarkable. Impressions: No acute osseous abnormality identified. Decreased bony mineralization. Osteoarthritis. Signed: Ting Peterson MD Report Verified Date/Time:01/12/2017 16:52:45 Reading Location: [address] Consult Reading Room Procedure Note Interface, External Ris In - 01/12/2017 4:54 PM CDT FINAL REPORT Radiograph of the right foot Reason for exam: pain with ambulation Comparison: No priors Discussion: Three views of the right foot are obtained. Bony mineralization is decreased. There is mild osteoarthritic change. No evidence of acute fracture, or dislocation. No bony erosion, or periosteal reaction is identified. The visualized soft tissues are unremarkable. Impressions: No acute osseous abnormality identified. Decreased bony mineralization. Osteoarthritis. Signed: Ting Peterson MD Report Verified Date/Time: 01/12/2017 16:52:45 Reading Location: [facility] B1 C013 Consult Reading Room Blood culture (01/09/2017 5:07 PM)Only the most recent of2 resultswithin the time period is included. Component Value Ref Range Result No growth in 5 days Specimen Performing Laboratory Blood - Arm, Right [facility] [address] [facility] [place] [address] MR brain without IV contrast (01/09/2017 4:12 PM) Specimen Performing Laboratory GE RIS Narrative FINAL REPORT MRI Brain without contrast Clinical History: Ischemic Stroke Evaluation TIA Episode of Care: Initial Technique: MRI of [...] left frontal arachnoid cyst. Signed: Wang Lunsford MD Report Verified Date/Time:01/09/2017 16:03:04 Reading Location: [address] Neuro Reading Room Procedure Note Interface, External Ris In - 01/09/2017 4:14 PM CDT FINAL REPORT MRI Brain without contrast Clinical History: Ischemic Stroke Evaluation TIA Episode of Care: Initial Technique: MRI of [...] left frontal arachnoid cyst. Signed: Wang Lunsford MD Report Verified Date/Time: 01/09/2017 16:03:04 Reading Location: [address] Neuro Reading Room Urinalysis w/Microscopic + Reflex to Culture (01/09/2017 3:02 PM) Component Value Ref Range Color, UA Light Yellow Clarity, UA Hazy Specific Christmas, UA 1.010 1.001 - 1.035 pH, UA 8.0 5.0 - 8.0 Protein, UA 20 mg/dL (A) Negative Glucose, UA Negative Negative Ketones, UA Negative Negative Bilirubin, UA Negative Negative Blood, UA Negative Negative Nitrite, UA Negative Negative Leukocytes, UA Large (A) Negative Urobilinogen, UA 0.2 0.2 - 1.0 mg/dL RBC, UA 2 /HPF WBC, UA 87 /HPF Squam Epithel, UA 3 /HPF Specimen Source Urine, Voided Specimen Performing Laboratory Urine - Urine, Voided [facility] [address] [address] Urinalysis w/Microscopic (01/09/2017 3:02 PM) Component Value Ref Range Color, UA Light Yellow Clarity, UA Hazy Specific Christmas, UA 1.010 1.001 - 1.035 pH, UA 8.0 5.0 - 8.0 Protein, UA 20 mg/dL (A) Negative Glucose, UA Negative Negative Ketones, UA Negative Negative Bilirubin, UA Negative Negative Blood, UA Negative Negative Nitrite, UA Negative Negative Leukocytes, UA Large (A) Negative Urobilinogen, UA 0.2 0.2 - 1.0 mg/dL RBC, UA 2 /HPF WBC, UA 87 /HPF Squam Epithel, UA 3 /HPF Specimen Source Urine, Voided Specimen Performing Laboratory Urine - Urine, Voided [address] [address] Urine culture (01/09/2017 3:02 PM)Only the most recent of2 resultswithin the time period is included. Component Value Ref Range Result Result >100,000 col/mL Same organism has been isolated from cultures(s) of the same body site and collection date. Repeat identification and susceptibility testing performed only after consultation with the clinical microbiology laboratory. (A) Comment: Refer to previous culture of Proteus mirabilis Specimen Performing Laboratory Urine - Urine, Voided [address] [address] Narrative 10-19,000 col/mL skin ranjith Vitamin B12 and Folate (01/09/2017 6:39 AM) Component Value Ref Range Vitamin B12 829 (H) 213 - 816 pg/mL Folate 15.9 >=7.0 ng/mL Specimen Performing Laboratory Blood [address] [address] C-Reactive Protein (01/09/2017 6:39 AM) Component Value Ref Range CRP 1.74 (H) 0.00 - 0.50 mg/dL Specimen Performing Laboratory Blood [address] [address] Narrative Fasting Troponin I (01/09/2017 6:39 AM) Component Value Ref Range Troponin I 0.01 0.00 - 0.03 ng/mL Specimen Performing Laboratory Blood [address] [address] Narrative Troponin I (TnI) levels must be interpreted [...] failure, acidosis, acute neurological disease, and persistent tachyarrhythmia. Fasting RPR (01/09/2017 6:39 AM) Component Value Ref Range RPR Nonreactive Nonreactive Specimen Performing Laboratory Blood [address] [address] Sedimentation rate (01/09/2017 6:39 AM) Component Value Ref Range Sed Rate 52 (H) 0 - 40 mm/HR Specimen Performing Laboratory [address] [address] Homocysteine (01/09/2017 6:39 AM) Component Value Ref Range Homocysteine 10.2 5.1 - 15.4 umol/L Specimen Performing Laboratory [address] [address] Hemoglobin A1c (01/09/2017 6:39 AM) Component Value Ref Range Hemoglobin A1C 5.8 4.3 - 6.1 % Specimen Performing Laboratory Blood [address] [address] Creatine Kinase (CK), Total and MB (01/09/2017 6:39 AM) Component Value Ref Range Total CK 30 29 - 200 U/L CK-MB 0.8 0.0 - 6.6 ng/mL MB Relative Index 2.7 % Specimen Performing Laboratory [address] [address] Narrative CK-MB Reference Range: <6.7Normal 6.7-10.0Borderline >10.0 Abnormal Fasting Fasting Hepatic function panel (01/09/2017 6:39 AM) Component Value Ref Range Protein, Total 6.8 6.0 - 8.3 gm/dL Albumin 3.4 (L) 3.5 - 5.0 g/dL Total Bilirubin 0.6 0.2 - 1.2 mg/dL Bilirubin, Direct 0.2 0.1 - 0.5 mg/dL Alkaline Phosphatase 67 40 - 150 U/L AST 16 5 - 34 U/L ALT 11 6 - 55 U/L Specimen Performing Laboratory Blood [address] [address] Narrative Fasting Fasting lipid panel (01/09/2017 6:39 AM) Component Value Ref Range Triglycerides 86 mg/dL Cholesterol 194 mg/dL HDL 66 mg/dL LDL Calculated 111 mg/dL Specimen Performing Laboratory Blood [facility] [address] [place] [address] Narrative Triglyceride Reference Range: Low Risk <150 [id number] High Risk 200-499 Very High Risk>=500 Cholesterol Reference Range: Low Risk <200 [id number] High Risk>240 HDL Cholesterol Reference Range: Low Risk >=60 High Risk <40 LDL Cholesterol Reference Range: Optimal<100 Near [id number] Very High >=190 Fasting after 09/19/2016
[2017-09-20] MEDS ORDERED: METHYLPREDNISOLONE 125 MG INJ ONE (16:52)
[2017-09-20] MEDS ORDERED: ALBUTEROL 2.5 MG/3 ML NEB SOL ONE (16:53)
[2017-09-20] MEDS ORDERED: IPRATROPIUM BROM 0.5MG/2.5ML ONE (16:53)
[2017-09-20 17:27] LABS: Absolute Lymphocytes (CBC) 1.1 K/uL (0.7-4.9); Absolute Monocytes 0.4 K/uL (0.1-1.3); Absolute Neutrophil 9.4 K/uL (1.8-8.0); Basophils % 1.1 % (0-1.3); Eosinophils % 0.9 % (0-4.4); Hematocrit 41.7 % (36.0-45.0); Lymphocytes % 10.2 % (15.3-44.8); MCH 29.1 pg (27.0-35.0); MCV 91.4 fL (80-100); Monocytes % 3.1 % (3.3-12.3); RBC Red Blood Cell Count 4.56 M/uL (3.86-4.86)
[2017-09-20 17:28] LABS: Protime INR 1.06
[2017-09-20 17:48] LABS: Albumin 3.5 g/dL (3.4-5.0); Bilirubin Total 0.2 mg/dL (0.2-1.0); Magnesium 2.2 mg/dL (1.8-2.4); Potassium 4.1 mmol/L (3.5-5.1)
--- NOTE | 2017-09-20 18:15 | RAD REPORT ---
EXAM DESCRIPTION: Shailesh Single View09/20/2017 5:48 pm CLINICAL HISTORY: Shortness of breath COMPARISON: May 2017 FINDINGS: The lungs appear clear of acute infiltrate. The heart is borderline enlarged IMPRESSION: No acute abnormalities displayed
--- NOTE | 2017-09-20 18:23 | EDPHYS ---
Physician Documentation [facility] Name: Elida Pradhan Age: 81 yrs Sex: Female : 1935 Arrival Date: 09/20/2017 Time: 16:28 Bed 13 Private MD: ED Physician Nghia Akins HPI: 09/20 16:32 This 81 yrs old Female presents to ER via Unassigned with complaints of ps1 Breathing Difficulty. 16:32 hx of copd, CAD, and chf increased wob over last week. Cough and wheezing and reported ps1 hypoxia. Brought in by EMS. Increased use of albuterol. Has edema. On spironolactone. Has urine frequency and depression. . Historical: - Allergies: 16:37 Levaquin; mg2 - Home Meds: 16:37 Aldactazide 25mg-25mg tablet PO daily [Active]; Effexor XR XR 75 mg PO BID Oral cp24 1 mg2 cap once daily [Active]; diazepam 5 mg Oral tab 1 tab 2 times per day [Active]; ellipta [Active]; Flagyl 500 mg Oral tab 1 tab 3 times per day [Active]; hydrocodone-acetaminophen 5-325 mg Oral tab twice a day [Active]; Lotrisone 1-0.05 % Topical crea 2 times per day [Active]; methimazole 10 mg Oral tab 1 tab three times a day [Active]; metoprolol tartrate 25 mg Oral tab 1 tab 2 times per day [Active]; mirtazapine 15 mg Oral TbDL 1 tab once daily [Active]; nystatin 100,000 unit/gram Topical powd 2 times per day [Active]; prednisone 5 mg Oral tab once daily [Active]; ProAir HFA 90 mcg/actuation inhalation HFAA 2 puffs every 6 hours [Active]; - PMHx: 16:37 COPD; Hypertension; DYSPHAGIA; Myocardial infarction; mg2 - PSHx: 16:37 None; mg2 - Immunization history:: Flu vaccine is up to date. - Social history:: Patient/guardian denies using alcohol, street drugs, tobacco products, Smoking status: Patient/guardian denies using tobacco. - Ebola Screening: : No symptoms or risks identified at this time. ROS: 16:32 Constitutional: Negative for fever, chills, and weight loss, Eyes: Negative for injury, ps1 pain, redness, and discharge, Neck: Negative for injury, pain, and swelling, Cardiovascular: Negative for chest pain, palpitations, and edema, Abdomen/GI: Negative for abdominal pain, nausea, vomiting, diarrhea, and constipation, Back: Negative for injury and pain, MS/Extremity: Negative for injury and deformity, Skin: Negative for injury, rash, and discoloration, Neuro: Negative for headache, weakness, numbness, tingling, and seizure. 16:32 Respiratory: Positive for cough, shortness of breath, wheezing. Exam: 16:32 Constitutional: This is a well developed, well nourished patient who is awake, alert, ps1 and in no acute distress. Head/Face: Normocephalic, atraumatic. Neck: Trachea midline, no thyromegaly or masses palpated, and no cervical lymphadenopathy. Supple, full range of motion without nuchal rigidity, or vertebral point tenderness. No Meningismus. Chest/axilla: Normal chest wall appearance and motion. Nontender with no deformity. No lesions are appreciated. Cardiovascular: Regular rate and rhythm. No gallops, murmurs, or rubs. Normal PMI, no JVD. No pulse deficits. Abdomen/GI: Soft, non-tender, with normal bowel sounds. No distension or tympany. No guarding or rebound. No evidence of tenderness throughout. Back: No spinal tenderness. No costovertebral tenderness. Full range of motion. Skin: Warm, dry with normal turgor. Normal color with no rashes, no lesions, and no evidence of cellulitis. MS/ Extremity: Pulses equal, no cyanosis. Neurovascular intact. Full, normal range of motion. 16:32 Respiratory: mild respiratory distress is noted, Respirations: labored breathing, that is mild, Breath sounds: wheezing: expiratory is heard diffusely. Vital Signs: 16:38 BP 191 / 83; Pulse 102; Resp 24; Temp 98.2(O); Pulse Ox 95% on R/A; Weight 80.29 kg; mg2 Height 5 ft. 1 in. (154.94 cm); Pain 0/10; 17:07 BP 170 / 81; Pulse 91; Resp 24; Pulse Ox 100% on Nebulizer Mask; Pain 0/10; mg2 18:34 BP 186 / 96; Pulse 107; Resp 20; Pulse Ox 94% on R/A; mh5 20:09 BP 166 / 92; Pulse 92; Resp 20; Pulse Ox 95% on R/A; Pain 0/10; mg2 21:08 BP 152 / 92; Pulse 100; Resp 18; Pulse Ox 96% on R/A; Pain 2/10; mg2 16:38 Body Mass Index 33.44 (80.29 kg, 154.94 cm) mg2 MDM: 16:32 Data reviewed: vital signs, nurses notes. ps1 16:43 Patient medically screened. ps1 18:13 ED course: On reevaluation patient remains tachycardic and tachypneic. States that her ps1 breathing has improved some but does not feel comfortable going home. Her doctor is out of town and her family is too and she lives independently. She has a mild leukocytosis and BNP. Plan will be to place patient in observation given underlying comorbidities and hypoxia. . 09/20 16:44 Order name: CBC with Diff ps1 09/20 16:44 Order name: Lipase ps1 09/20 16:44 Order name: Magnesium ps1 09/20 16:44 Order name: NT PRO-BNP ps1 09/20 16:44 Order name: PT-INR ps1 09/20 16:44 Order name: Troponin (emerg Dept Use Only) ps1 09/20 16:44 Order name: CMP ps1 09/20 17:22 Order name: Comprehensive Metabolic Panel; Complete Time: 17:55 EDMS 09/20 17:22 Order name: NT PRO-BNP; Complete Time: 17:55 EDMS 09/20 17:22 Order name: Magnesium; Complete Time: 17:55 EDMS 09/20 17:22 Order name: Lipase; Complete Time: 17:55 EDMS 09/20 17:22 Order name: Troponin (Emerg Dept Use Only); Complete Time: 17:55 EDMS 09/20 17:22 Order name: CBC with Automated Diff; Complete Time: 17:42 EDMS 09/20 17:22 Order name: Protime (+INR); Complete Time: 17:42 EDMS 09/20 17:28 Order name: Chest Single View; Complete Time: 18:28 EDMS 09/20 18:28 Order name: Basic Metabolic Panel EDMS 09/20 18:28 Order name: Basic Metabolic Panel EDMS 09/20 18:28 Order name: CBC with Automated Diff EDMS 09/20 18:28 Order name: CBC with Automated Diff EDMA 09/20 18:28 Order name: NT PRO-BNP EDMA 09/20 18:28 Order name: NT PRO-BNP EDMA 09/20 18:28 Order name: Troponin I EDMA 09/20 18:28 Order name: Troponin I EDMA 09/20 18:28 Order name: Troponin I [facility] 09/20 18:35 Order name: Urine Dipstick--Ancillary (enter results) ag 09/20 20:14 Order name: Urine Dipstick-Ancillary EDMA 09/20 16:44 Order name: EKG; Complete Time: 17:30 ps1 09/20 16:44 Order name: Cardiac monitoring; Complete Time: 16:47 ps1 09/20 16:44 Order name: EKG - Nurse/Tech; Complete Time: 16:47 ps1 09/20 16:44 Order name: IV Saline Lock; Complete Time: 16:47 ps1 09/20 16:44 Order name: Labs collected and sent; Complete Time: 17:14 ps1 09/20 16:44 Order name: O2 Per Protocol; Complete Time: 16:47 ps1 09/20 16:44 Order name: O2 Sat Monitoring; Complete Time: 16:47 ps1 09/20 16:44 Order name: Urine Dipstick-Ancillary (obtain specimen); Complete Time: 18:34 ps1 09/20 18:28 Order name: Regular EDMA EC:28 Rate is 94 beats/min. Rhythm is regular. QRS [place] is Normal. [place] interval is normal. QRS ps1 interval is normal. QT interval is normal. Q waves are Present. Q waves are Old in leads II, III, aVF. T waves are Normal. No ST changes noted. Clinical impression: Inferior HI - age indeterminate. Interpreted by me. Administered Medications: 17:02 Drug: SOLU-Medrol 125 mg Route: IVP; Site: right antecubital; mg2 19:42 Follow up: Response: No adverse reaction mg2 17:02 Drug: DuoNeb (3:1) (2.5 mg - 0.5 mg) 3 ml Route: Nebulizer; mg2 19:41 Follow up: Response: No adverse reaction; breathing improved mg2 19:09 Drug: AZITHromycin 500 mg Route: IVPB; Infused Over: 1 hrs; Site: right antecubital; mg2 Disposition: 09/20/17 18:22 Hospitalization ordered by Mary Ellen Duong for Observation. Preliminary diagnosis are Acute COPD Exacerbation, Hypoxia, CHF exacerbation. - Bed requested for Telemetry/MedSurg (observation). - Status is Observation. mg2 - Condition is Fair. - Problem is an acute exacerbation. - Symptoms have improved. UTI on Admission? No Signatures: Dispatcher [employer] EDMS Feli Shane RN RN fc Nghia Akins MD MD ps1 Malcom Forbes RN RN mg2 Corrections: (The following items were deleted from the chart) 17:45 17:30 Chest Single View+RAD.RAD.BRZ ordered. EDMS EDMS 18:15 16:32 hx of copd and chf increased wob over last week. Cough and wheezing. Increased ps1 use of albuterol. Has edema. On spironolactone. . ps1 20:52 18:22 Hospitalization Ordered by Mary Ellen Duong MD for Observation. Preliminary fc diagnosis is Acute COPD Exacerbation; Hypoxia; CHF exacerbation. Bed requested for Telemetry/MedSurg (observation). Status is Observation. Condition is Fair. Problem is an acute exacerbation. Symptoms have improved. UTI on Admission? No. ps1 21:51 20:52 09/20/2017 18:22 Hospitalization Ordered by Mary Ellen Duong MD for Observation. mg2 Preliminary diagnosis is Acute COPD Exacerbation; Hypoxia; CHF exacerbation. Bed requested for Telemetry/MedSurg (observation). Status is Observation. Condition is Fair. Problem is an acute exacerbation. Symptoms have improved. UTI on Admission? No. fc
--- NOTE | 2017-09-20 18:23 | ER ---
Nurse's Notes [facility] Name: Elida Pradhan Age: 81 yrs Sex: Female : 1935 Arrival Date: 09/20/2017 Time: 16:28 Bed 13 Private MD: Diagnosis: Acute COPD Exacerbation;Hypoxia;CHF exacerbation Presentation: 09/20 16:29 Presenting complaint: EMS states: she was having shortness of breath since Wednesday mg2 and had diarrhea as side effect to taking antbiotic because of pneumonia. Denies chest pain, but reported to have yellowish sputum and swelling in both feet recently. She was given Solu medrol 125 mg and breathing treatments. 12 lead ECG was lidia. Transition of care: patient was not received from another setting of care. Onset of symptoms was September 15, 2017. Risk Assessment: Do you want to hurt yourself or someone else? Patient reports no desire to harm self or others. Initial Sepsis Screen: Does the patient meet any 2 criteria? No. Patient's initial sepsis screen is negative. Does the patient have a suspected source of infection? No. Patient's initial sepsis screen is negative. Care prior to arrival: Medication(s) given: Albuterol Neb x 1, Atrovent Neb x 1, solu medrol. 16:29 Method Of Arrival: EMS: [place] [id number] 16:29 Acuity: TALYA 3 mg2 Triage Assessment: 21:17 General: Behavior is calm, cooperative. mg2 Historical: - Allergies: 16:37 Levaquin; mg2 - Home Meds: 16:37 Aldactazide 25mg-25mg tablet PO daily [Active]; Effexor XR XR 75 mg PO BID Oral cp24 1 mg2 cap once daily [Active]; diazepam 5 mg Oral tab 1 tab 2 times per day [Active]; ellipta [Active]; Flagyl 500 mg Oral tab 1 tab 3 times per day [Active]; hydrocodone-acetaminophen 5-325 mg Oral tab twice a day [Active]; Lotrisone 1-0.05 % Topical crea 2 times per day [Active]; methimazole 10 mg Oral tab 1 tab three times a day [Active]; metoprolol tartrate 25 mg Oral tab 1 tab 2 times per day [Active]; mirtazapine 15 mg Oral TbDL 1 tab once daily [Active]; nystatin 100,000 unit/gram Topical powd 2 times per day [Active]; prednisone 5 mg Oral tab once daily [Active]; ProAir HFA 90 mcg/actuation inhalation HFAA 2 puffs every 6 hours [Active]; - PMHx: 16:37 COPD; Hypertension; DYSPHAGIA; Myocardial infarction; mg2 - PSHx: 16:37 None; mg2 - Immunization history:: Flu vaccine is up to date. - Social history:: Patient/guardian denies using alcohol, street drugs, tobacco products, Smoking status: Patient/guardian denies using tobacco. - Ebola Screening: : No symptoms or risks identified at this time. Screenin:40 Abuse screen: Denies threats or abuse. Denies injuries from another. Nutritional mg2 screening: No deficits noted. Tuberculosis screening: No symptoms or risk factors identified. Fall Risk IV access (20 points). Assessment: 16:41 General: Appears in no apparent distress. comfortable. Pain: Denies pain. Neuro: Level mg2 of Consciousness is awake, alert, Oriented to person, place, time, situation. Cardiovascular: Capillary refill < 3 seconds Patient's skin is warm and dry. Respiratory: Airway is patent Respiratory effort is even, unlabored, Respiratory pattern is regular, symmetrical, Breath sounds with wheezes in left posterior upper lobe, right posterior upper lobe, left posterior lower lobe, right posterior middle lobe and right posterior lower lobe. GI: Reports diarrhea. 16:42 : No signs and/or symptoms were reported regarding the genitourinary system. EENT: No mg2 signs and/or symptoms were reported regarding the EENT system. Derm: No signs and/or symptoms reported regarding the dermatologic system. Musculoskeletal: No signs and/or symptoms reported regarding the musculoskeletal system. Vital Signs: 16:38 BP 191 / 83; Pulse 102; Resp 24; Temp 98.2(O); Pulse Ox 95% on R/A; Weight 80.29 kg; mg2 Height 5 ft. 1 in. (154.94 cm); Pain 0/10; 17:07 BP 170 / 81; Pulse 91; Resp 24; Pulse Ox 100% on Nebulizer Mask; Pain 0/10; mg2 18:34 BP 186 / 96; Pulse 107; Resp 20; Pulse Ox 94% on R/A; mh5 20:09 BP 166 / 92; Pulse 92; Resp 20; Pulse Ox 95% on R/A; Pain 0/10; mg2 21:08 BP 152 / 92; Pulse 100; Resp 18; Pulse Ox 96% on R/A; Pain 2/10; mg2 16:38 Body Mass Index 33.44 (80.29 kg, 154.94 cm) mg2 ED Course: 16:28 Patient arrived in ED. mg2 16:28 Malcom Forbes RN is Primary Nurse. mg2 16:29 Nghia Akins MD is Attending Physician. ps1 16:33 Triage completed. mg2 16:40 Arm band placed on. mg2 16:40 Maintain EMS IV. Dressing intact. Good blood return noted. Site clean \T\ dry. Gauge \T\ mg 2 site: right AC g. 22. IV. 16:43 Patient has correct armband on for positive identification. Door closed. mg2 16:43 EKG done, by plasma processing technician. reviewed by Nghia Akins MD. sm3 17:08 Placed in gown. Bed in low position. Call light in reach. Side rails up X2. Warm mh5 blanket given. conveyor monitor on. Pulse ox on. NIBP on. 17:48 Chest Single View In Process Unspecified. EDMS 18:21 Mary Ellen Duong MD is Hospitalizing Provider. ps1 18:34 Urine collected: clean catch specimen, cloudy. mh5 21:17 No provider procedures requiring assistance completed. Patient admitted, IV remains in mg2 place. Administered Medications: 17:02 Drug: SOLU-Medrol 125 mg Route: IVP; Site: right antecubital; mg2 19:42 Follow up: Response: No adverse reaction mg2 17:02 Drug: DuoNeb (3:1) (2.5 mg - 0.5 mg) 3 ml Route: Nebulizer; mg2 19:41 Follow up: Response: No adverse reaction; breathing improved mg2 19:09 Drug: AZITHromycin 500 mg Route: IVPB; Infused Over: 1 hrs; Site: right antecubital; mg2 Intake: Outcome: 18:22 Decision to Hospitalize by Provider. ps1 21:16 Admitted to Med/surg accompanied by tech, via wheelchair, room 205, with chart, Report mg2 called to HARSHAL Zarate 21:16 Condition: stable 21:16 Instructed on the need for admit, Demonstrated understanding of instructions. 21:51 Patient left the ED. mg2 Signatures: Dispatcher [employer] Johanna Rosales [facility] Nghia Akins MD MD ps1 Malcom Forbes RN RN mg2 Edie Krueger 3
[2017-09-20] MEDS ORDERED: ALBUTEROL 2.5 MG/3 ML NEB SOL NEB PRN ×2 (18:24→19:00)
[2017-09-20] MEDS ORDERED: ONDANSETRON 4 MG/2 ML VIAL IV PRN (18:24)
[2017-09-20] MEDS ORDERED: AZITHROMYCIN 500 MG/250 ML BAG ONE (18:59)
[2017-09-20] MEDS ORDERED: IPRATROPIUM BROM 0.5MG/2.5ML NEB PRN (20:00)
[2017-09-20 20:13] LABS: Urine Blood 2+ (NEG); Urine Glucose NEGATIVE (NEG); Urine Protein 1+ (NEG); Urine Specific Gravity 1.015 (1.005-1.030)
[2017-09-20] MEDS ORDERED: ACETAMINOPHEN 500 MG TAB ONE (21:08)
[2017-09-20] MEDS: ACETAMINOPHEN 500 MG TAB PO PRN (21:49)
[2017-09-20] MEDS: CEFTRIAXONE/SWI 1gm 1 GM/10 ML SYR IVP SCH (22:04)
--- NOTE | 2017-09-20 22:13 | EKG ---
Test Date: 2017-09-20 Test Time: 16:30:40 Combat Engineer: SEUN MEASUREMENT RESULTS: Intervals: Rate: 97 MD: 162 QRSD: 80 QT: 368 QTc: 467 [place]: P: 71 MD: 162 QRS: 18 T: 53 INTERPRETIVE STATEMENTS: Normal sinus rhythm Normal ECG Compared to ECG 06/11/2017 07:46:23 Atrial premature complex(es) no longer present Myocardial infarct finding no longer present Electronically Signed On 09-20-17 22:12:29 CDT by Paul Hoffman
[2017-09-20 22:27] VITALS: BMI 33.4
[2017-09-21] MEDS: METHYLPREDNISOLONE 40 MG INJ IV SCH ×3 (00:10→16:27)
[2017-09-21 05:07] LABS: Absolute Lymphocytes (CBC) 1.3 K/uL (0.7-4.9); Absolute Monocytes 0.1 K/uL (0.1-1.3); Absolute Neutrophil 10.4 K/uL (1.8-8.0); Eosinophils % 0.1 % (0-4.4); Hematocrit 39.7 % (36.0-45.0); Lymphocytes % 10.8 % (15.3-44.8); MCH 30.4 pg (27.0-35.0); MCV 92.4 fL (80-100); Monocytes % 0.7 % (3.3-12.3); RBC Red Blood Cell Count 4.29 M/uL (3.86-4.86)
[2017-09-21 05:50] LABS: Potassium 4.6 mmol/L (3.5-5.1)
[2017-09-21 05:58] LABS: Blood Morphology Comment NOT SEEN (NOT SEEN); Platelet Estimate ADEQ
[2017-09-21] MEDS: CEFTRIAXONE/SWI 1gm 1 GM/10 ML SYR IVP SCH (09:00)
[2017-09-21] MEDS: ASPIRIN EC 81 MG TAB PO SCH (09:40)
[2017-09-21] MEDS: ACETAMINOPHEN 500 MG TAB PO PRN (15:02)
--- NOTE | 2017-09-21 15:37 | EKG ---
Test Date: 2017-09-20 Test Time: 17:28:14 Nailhead Puncher: MG MEASUREMENT RESULTS: Intervals: Rate: 94 DC: 158 QRSD: 80 QT: 382 QTc: 477 [place]: P: 59 DC: 158 QRS: -6 T: 43 INTERPRETIVE STATEMENTS: Normal sinus rhythm Inferior infarct, age undetermined Abnormal ECG Compared to ECG 09/20/2017 16:30:40 Myocardial infarct finding now present Electronically Signed On 09-21-17 15:34:15 CDT by Rashad Christopher
[2017-09-21] MEDS ORDERED: Levofloxacin500mg IV 500 MG/100 ML BAG IV SCH (16:00)
--- NOTE | 2017-09-21 16:09 | P.HP ---
Certification for Inpatient Patient admitted to: Observation With expected LOS: <2 Midnights Patient will require the following post-hospital care: None Practitioner: I am a practitioner with admitting privileges, knowledge of patient current condition, hospital course, and medical plan of care. Services: Services provided to patient in accordance with Admission requirements found in Title 42 Section 412.3 of the Code of Federal Regulations Patient History Date of Service: 09/21/17 Primary Care Provider: Dr Saldana - PCP, Dr Hoffman - Cardiology Reason for admission: COPD exacerbation History of Present Illness: 81 y/o F with pmhx of copd, HTN and MN presented to the ED with complains of Cough and congestion. Pt states her cough has been going on for over 1 months and getting progressively worse. Last week she noted to have nasal drainage and got abx from PCP. However abx made her have diarrhea and thus she stopped it. She tried to make an appt with pcp but Dr Saldana was OOT so she decided to come to ED as she started having SOB. +subjective fever and chills at home. No other complains to offer at this time. Has nebs at home but used it without any relief. Allergies levofloxacin [From Levaquin] Adverse Reaction (Verified 12/04/16 22:04) Nausea/Vomiting Home Medications: Diazepam [Valium] 2.5 mg PO BID 09/20/17 Methimazole [Tapazole] 10 mg PO TID 09/20/17 Metoprolol Tartrate [Lopressor] 25 mg PO BID 09/20/17 Mirtazapine [Remeron] 15 mg PO BEDTIME 09/20/17 Spironolact/Hydrochlorothiazid [Aldactazide 25-25 Tablet] 1 each PO DAILY Venlafaxine HCl [Venlafaxine HCl ER] 75 mg PO BID 09/20/17 - Past Medical/Surgical History Diabetic: No -: HTN -: [place] -: COPD -: tonsilectomy @ 8 yrs old - Family History Father -: Kidney disease Notes: Bryte's disease Mother -: Stroke Sister -: Hypertension Brother -: Cancer Notes: cancer of esophagus and colon cancer - Social History Smoking Status: Former smoker Alcohol use: No CD- Drugs: No Caffeine use: Yes Place of Residence: Home Review of Systems General: As per HPI Physical Examination - Vital Signs Temperature: 97.9 F Blood Pressure: 187/84 Pulse: 87 Respirations: 20 Pulse Ox (%): 99 - Physical Exam General: Alert, In no apparent distress, Acute distress HEENT: Atraumatic Neck: Supple Respiratory: Normal air movement, Expiratory wheezes, Inspiratory wheezes, Other (audible Wheezinf) Cardiovascular: Regular rate/rhythm, Normal S1 S2 Gastrointestinal: Normal bowel sounds, Soft and benign, Non-distended, No tenderness Musculoskeletal: No tenderness Integumentary: No rashes Neurological: Normal gait, Normal speech, Normal strength at 5/5 x4 extr, Normal tone, Normal affect Lymphatics: No axilla or inguinal lymphadenopathy - Studies Laboratory Data (last 24 hrs) 09/20/17 17:05: PT 12.5, INR 1.06 09/20/17 17:05: Sodium 137, Potassium 4.1, BUN 17, Creatinine 1.20, Glucose 106 , Magnesium 2.2, Total Bilirubin 0.2, AST 21, ALT 19, Alkaline Phosphatase 69, Lipase 102 09/20/17 17:05: WBC 11.2 H, Hgb 13.3, Hct 41.7, Plt Count 318 09/20/17 16:44: PT Cancelled, INR Cancelled 09/20/17 16:44: Sodium Cancelled, Potassium Cancelled, BUN Cancelled, Creatinine Cancelled, Glucose Cancelled, Magnesium Cancelled, Total Bilirubin Cancelled, AST Cancelled, ALT Cancelled, Alkaline Phosphatase Cancelled, Lipase Cancelled 09/20/17 16:44: WBC Cancelled, Hgb Cancelled, Hct Cancelled, Plt Count Cancelled Assessment and Plan - Problems (Diagnosis) (1) COPD exacerbation Onset Date: 09/21/17 Current Visit: Yes Status: Acute Plan: COPD exacerbation most likely 2.2 to viral illness vs sinusitis vs fluid overload -Duonebs, Steriods, Oxgyen for now -Levaquin till sputum culture and procal -Pulm consult. -Procal for now (2) HTN (hypertension) Onset Date: 12/07/16 Current Visit: No Status: Chronic Plan: Will restart home medication Qualifiers: Hypertension type: essential hypertension Qualified Code(s): I10 - Essential (primary) hypertension (3) Hyperthyroidism Current Visit: No Status: Chronic Plan: WIll Start Home medication (4) CHF (congestive heart failure) Current Visit: Yes Status: Suspected Plan: Elevated BNP on lab and now with SOB. -Xray with congestion -Will get ECHO for now -If consistent with CHF start on lasix Qualifiers: Heart failure type: diastolic Heart failure chronicity: unspecified Qualified Code(s): I50.30 - Unspecified diastolic (congestive) heart failure Discharge Plan: Home Plan to discharge in: 48 Hours - Advance Directives Does patient have a Living Will: Yes Does patient have a Durable POA for Healthcare: Yes - Code Status/Comfort Care Code Status Assessed: Yes Critical Care: No
[2017-09-21] MEDS: IPRATROPIUM BROM 0.5MG/2.5ML NEB SCH (19:14)
[2017-09-21] MEDS: ALBUTEROL 2.5 MG/3 ML NEB SOL NEB SCH (19:14)
[2017-09-21] MEDS: VENLAFAXINE HCL XR 75 MG CAP PO SCH (21:00)
[2017-09-21] MEDS: MIRTAZAPINE 15 MG TAB PO SCH (21:26)
[2017-09-21] MEDS: DIAZEPAM 5 MG TABLET PO SCH (21:26)
[2017-09-21] MEDS: METOPROLOL TAR 25 MG TAB PO SCH (21:27)
[2017-09-22] MEDS: METHYLPREDNISOLONE 40 MG INJ IV SCH (00:33)
[2017-09-22] MEDS: IPRATROPIUM BROM 0.5MG/2.5ML NEB SCH ×4 (01:18→19:11)
[2017-09-22] MEDS: ALBUTEROL 2.5 MG/3 ML NEB SOL NEB SCH ×2 (01:18→08:03)
[2017-09-22] MEDS: ACETAMINOPHEN 500 MG TAB PO PRN ×2 (05:50→09:50)
--- NOTE | 2017-09-22 08:37 | P.CNS ---
Date of Consult: 09/22/17 Reason for Consult: Shortness of breath Primary Care Provider: Dr Saldana - PCP, Dr Hoffman - Cardiology Chief Complaint: COPD exacerbation History of Present Illness: Patient is 81 years of age admitted complaining of sudden onset of shortness of breath became worse very quickly patient is also suffering from depression apparently she was in this hospital about 6 months ago been drinking a lot of fluids including tea and coffee ex-smoker does have some nebulizers at home denies any cough sputum hemoptysis or chest pain complaining of lower extremity edema feeling better Allergies levofloxacin [From Levaquin] Adverse Reaction (Verified 12/04/16 22:04) Nausea/Vomiting Home Medications: Diazepam [Valium] 2.5 mg PO BID 09/20/17 Methimazole [Tapazole] 10 mg PO TID 09/20/17 Metoprolol Tartrate [Lopressor] 25 mg PO BID 09/20/17 Mirtazapine [Remeron] 15 mg PO BEDTIME 09/20/17 Spironolact/Hydrochlorothiazid [Aldactazide 25-25 Tablet] 1 each PO DAILY Venlafaxine HCl [Venlafaxine HCl ER] 75 mg PO BID 09/20/17 - Past Medical/Surgical History Diabetic: No -: HTN -: [place] -: COPD -: childhood asthma -: tonsilectomy @ 8 yrs old - Family History Father Medical History: Kidney disease Notes: Bryte's disease Mother Medical History: Stroke Sister Medical History: Hypertension Brother Medical History: Cancer Notes: cancer of esophagus and colon cancer - Social History Smoking Status: Current every day smoker Alcohol use: No CD- Drugs: No Caffeine use: Yes Place of Residence: Home Review of Systems 10-point ROS is otherwise unremarkable Physical Examination Temp Pulse Resp BP Pulse Ox 98.2 F 100 H 18 161/83 H 95 09/22/17 04:00 09/22/17 04:00 09/22/17 04:00 09/22/17 04:00 09/22/17 04:00 General: Alert, Oriented x3 Respiratory: Clear to auscultation bilaterally Cardiovascular: Normal S1 S2, Edema Gastrointestinal: Soft and benign - Problems (1) Shortness of breath Current Visit: Yes Status: Acute Plan: Patient is 81 years of age admitted with acute onset of shortness of breath BNP is elevated patient has lower extremity edema he drinks a lot of fluids at home history of possible underlying COPD labs reviewed chest x-ray is clear patient' s blood pressure was significantly elevated patient is on spironolactone and hydrochlorothiazide at home Dc steroids consider adding calcium channel marco a probably has underlying diastolic dysfunction patient can be discharged home on a combination of Norvasc spironolactone and Lasix with fluid restriction she has nebulizers at home and will need outpatient followup including pulmonary function test which did not qualify for home O2
[2017-09-22] MEDS ORDERED: ALBUTEROL 2.5 MG/3 ML NEB SOL NEB PRN (08:39)
[2017-09-22] MEDS ORDERED: CEFTRIAXONE/SWI 1gm 1 GM/10 ML SYR IVP SCH (09:00)
[2017-09-22] MEDS ORDERED: CEFTRIAXONE 1 GM/NS 50 ML 1 GM/50 ML BAG IV SCH (09:00)
[2017-09-22] MEDS ORDERED: hydroCHLOROthiazide 25 MG TAB PO SCH (09:00)
[2017-09-22] MEDS: METOPROLOL TAR 25 MG TAB PO SCH ×2 (09:49→20:55)
[2017-09-22] MEDS: ASPIRIN EC 81 MG TAB PO SCH (09:49)
[2017-09-22] MEDS: VENLAFAXINE HCL XR 75 MG CAP PO SCH ×2 (09:49→20:54)
[2017-09-22] MEDS: SPIRONOLACTONE 25 MG TABLET PO SCH (09:49)
[2017-09-22] MEDS: FUROSEMIDE 20 MG/ 2ML VIAL IV SCH ×2 (09:49→16:28)
[2017-09-22] MEDS: AMLODIPINE 5 MG TAB PO SCH (09:50)
[2017-09-22] MEDS: DIAZEPAM 5 MG TABLET PO SCH ×2 (09:50→20:56)
--- NOTE | 2017-09-22 11:30 | P.PN ---
Subjective Date of Service: 09/22/17 Primary Care Provider: Dr Saldana - PCP, Dr Hoffman - Cardiology Chief Complaint: COPD exacerbation Pt seen and examined at bedside. Chart reviewed. Case DW with Pulmonology. Currently Doing well overall. States SOB is better today then yesterday. Pending ECHO today. Review of Systems General: As per HPI Physical Examination - Vital Signs Temperature: 97.9 F Blood Pressure: 193/93 Pulse: 104 Respirations: 16 Pulse Ox (%): 100 - Physical Exam General: Alert, In no apparent distress, Oriented x3 HEENT: Atraumatic, PERRLA, EOMI Neck: Supple Respiratory: Normal air movement, Expiratory wheezes, Inspiratory wheezes Cardiovascular: Regular rate/rhythm, Normal S1 S2 Gastrointestinal: Normal bowel sounds, No tenderness Musculoskeletal: No tenderness Integumentary: No rashes Neurological: Normal speech, Normal tone, Normal affect Lymphatics: No axilla or inguinal lymphadenopathy - Studies Medications List Reviewed: Yes Assessment & Plan - Problems (Diagnosis) (1) COPD exacerbation Onset Date: 09/21/17 Current Visit: Yes Status: Acute Plan: COPD exacerbation most likely 2.2 to viral illness vs sinusitis vs fluid overload -Jessica Proctor Oxgyen for now -Pulm consult. Appreciate Reccs -Procal negative. -DC sher (2) CHF (congestive heart failure) Current Visit: Yes Status: Acute Plan: Possible Acute on Chronic Diastolic Dysfunction. Elevated BNP on lab and now with SOB. -Xray with congestion -Echo pending -on Lasix IV and Spironolactone for now Qualifiers: Heart failure type: diastolic Heart failure chronicity: acute on chronic Qualified Code(s): I50.33 - Acute on chronic diastolic (congestive) heart failure (3) HTN (hypertension) Onset Date: 12/07/16 Current Visit: No Status: Chronic Plan: Stable Qualifiers: Hypertension type: essential hypertension Qualified Code(s): I10 - Essential (primary) hypertension (4) Hyperthyroidism Current Visit: No Status: Chronic Plan: Stable Discharge Plan: Home Plan to discharge in: 48 Hours - Code Status/Comfort Care Code Status Assessed: Yes Critical Care: No
[2017-09-22] MEDS: MIRTAZAPINE 15 MG TAB PO SCH (20:55)
[2017-09-23] MEDS: IPRATROPIUM BROM 0.5MG/2.5ML NEB SCH ×4 (01:31→20:20)
[2017-09-23] MEDS: VENLAFAXINE HCL XR 75 MG CAP PO SCH ×2 (09:00→21:00)
[2017-09-23] MEDS: METOPROLOL TAR 25 MG TAB PO SCH ×2 (09:00→21:01)
[2017-09-23] MEDS: FUROSEMIDE 20 MG/ 2ML VIAL IV SCH ×2 (09:00→16:16)
[2017-09-23] MEDS: ACETAMINOPHEN 500 MG TAB PO PRN ×2 (09:01→21:02)
[2017-09-23] MEDS: ASPIRIN EC 81 MG TAB PO SCH (09:01)
[2017-09-23] MEDS: AMLODIPINE 5 MG TAB PO SCH (09:01)
[2017-09-23] MEDS: DIAZEPAM 5 MG TABLET PO SCH ×2 (09:02→21:02)
[2017-09-23] MEDS: SPIRONOLACTONE 25 MG TABLET PO SCH (09:02)
[2017-09-23 11:29] LABS: Absolute Lymphocytes (CBC) 1.7 K/uL (0.7-4.9); Absolute Monocytes 1.1 K/uL (0.1-1.3); Absolute Neutrophil 18.7 K/uL (1.8-8.0); Basophils % 0.4 % (0-1.3); Eosinophils % 0.1 % (0-4.4); Hematocrit 42.9 % (36.0-45.0); Lymphocytes % 7.9 % (15.3-44.8); MCV 91.3 fL (80-100); Monocytes % 5.2 % (3.3-12.3)
[2017-09-23 12:01] LABS: Albumin 3.7 g/dL (3.4-5.0); Bilirubin Total 0.4 mg/dL (0.2-1.0); Potassium 3.8 mmol/L (3.5-5.1); Protein, Total 7.8 g/dL (6.4-8.2)
[2017-09-23 12:59] LABS: Platelet Estimate ADEQ
[2017-09-23 13:00] LABS: Anisocytosis 1+; Blood Morphology Comment NOTED (NOT SEEN)
[2017-09-23 13:01] LABS: Rouleau NOTED
--- NOTE | 2017-09-23 15:13 | P.PN ---
Subjective Date of Service: 09/23/17 Primary Care Provider: Dr Saldana - PCP, Dr Hoffman - Cardiology Chief Complaint: COPD exacerbation Pt seen and examined at bedside. Chart reviewed. Case DW with Pulmonology. Currently Doing well overall. States SOB is better today then yesterday. Pending ECHO today. Review of Systems General: As per HPI Physical Examination - Vital Signs Temperature: 97.4 F Blood Pressure: 162/88 Pulse: 86 Respirations: 16 Pulse Ox (%): 93 - Physical Exam General: Alert, In no apparent distress HEENT: Atraumatic, PERRLA, EOMI Neck: Supple, JVD not distended Respiratory: Clear to auscultation bilaterally, Normal air movement Cardiovascular: Regular rate/rhythm, Normal S1 S2 Gastrointestinal: Normal bowel sounds, No tenderness Musculoskeletal: No tenderness Integumentary: No rashes Neurological: Normal speech, Normal tone, Normal affect Lymphatics: No axilla or inguinal lymphadenopathy - Studies Medications List Reviewed: Yes Assessment & Plan - Problems (Diagnosis) (1) COPD exacerbation Onset Date: 09/21/17 Current Visit: Yes Status: Acute Plan: COPD exacerbation most likely 2.2 to viral illness vs sinusitis vs fluid overload -Jessica Proctor Oxgyen for now -Pulm consult. Appreciate Reccs -Procal negative. -KATERIN olivarez (2) CHF (congestive heart failure) Current Visit: Yes Status: Acute Plan: Possible Acute on Chronic Diastolic Dysfunction. Elevated BNP on lab and now with SOB. -Xray with congestion -Echo pending -on Lasix IV and Spironolactone for now Qualifiers: Heart failure type: diastolic Heart failure chronicity: acute on chronic Qualified Code(s): I50.33 - Acute on chronic diastolic (congestive) heart failure (3) HTN (hypertension) Onset Date: 12/07/16 Current Visit: No Status: Chronic Plan: Stable Qualifiers: Hypertension type: essential hypertension Qualified Code(s): I10 - Essential (primary) hypertension (4) Hyperthyroidism Current Visit: No Status: Chronic Plan: Stable
[2017-09-23 17:51] LABS: Arterial Blood Carboxyhemoglob 1.4 % (0-1.5); Blood Gas Oxyhemoglobin 93.5 % (94-97); Blood O2 Saturation 95.2 % (92-98.5)
--- NOTE | 2017-09-23 18:01 | ECHO ---
HEIGHT: 5 ft 1 in WEIGHT: 176 lb 14.4 oz DATE OF STUDY: 09/23/[address]: Maddy Trujillo MD 2-DIMENSIONAL: YES M.MODE: YES DOPPLER: YES COLOR FLOW: YES TDS: YES PORTABLE: DEFINITY: BUBBLE STUDY: DIAGNOSIS: SHORTNESS OF BREATH WITH ELEVATED BRAIN NATRIURECTIC PEPTIDE CARDIAC HISTORY: CATHERIZATION: NO SURGERY: NO PROSTHETIC VALVE: NO PACEMAKER: NO MEASUREMENTS (cm) DIASTOLIC (NORMALS) SYSTOLIC (NORMALS) IVSd 0.8 (0.6-1.2) LA Diam 2.5 (1.9-4.0) LVEF 61% LVIDd 3.4 (3.5-5.7) LVIDs 2.3 (2.0-3.5) %FS 32% LVPWd 0.9 (0.6-1.2) Ao Diam 2.7 (2.0-3.7) 2 DIMENSIONAL ASSESSMENT: RIGHT ATRIUM: NORMAL LEFT ATRIUM: NORMAL RIGHT VENTRICLE: NORMAL LEFT VENTRICLE: NORMAL TRICUSPID VALVE: NORMAL MITRAL VALVE: NORMAL PULMONIC VALVE: NORMAL AORTIC VALVE: NORMAL PERICARDIAL EFFUSION: NONE AORTIC ROOT: NORMAL LEFT VENTRICULAR WALL MOTION: NORMAL DOPPLER/COLOR FLOW: IMPAIRED LEFT VENTRICULAR RELAXATION. OTHERWISE NORMAL. COMMENTS: NORMAL TWO DIMENSIONAL ECHOCARDIOGRAM. IMPAIRED LEFT VENTRICULAR RELAXATION. TECHNICALLY DIFFICULT STUDY. TECHNOLOGIST: SHERRI ODONNELL
[2017-09-23] MEDS: MIRTAZAPINE 15 MG TAB PO SCH (21:01)
[2017-09-24] MEDS: IPRATROPIUM BROM 0.5MG/2.5ML NEB SCH ×2 (01:52→08:29)
[2017-09-24 05:27] LABS: Absolute Lymphocytes (CBC) 2.4 K/uL (0.7-4.9); Absolute Monocytes 0.9 K/uL (0.1-1.3); Basophils % 0.3 % (0-1.3); Eosinophils % 1.9 % (0-4.4); Hematocrit 42.2 % (36.0-45.0); Lymphocytes % 18.8 % (15.3-44.8); MCH 30.7 pg (27.0-35.0); MCV 90.5 fL (80-100); Monocytes % 7.4 % (3.3-12.3); RBC Red Blood Cell Count 4.66 M/uL (3.86-4.86)
[2017-09-24 05:44] LABS: Albumin 3.3 g/dL (3.4-5.0); Bilirubin Total 0.3 mg/dL (0.2-1.0); Potassium 3.6 mmol/L (3.5-5.1); Protein, Total 7.3 g/dL (6.4-8.2)
[2017-09-24] MEDS: FUROSEMIDE 20 MG/ 2ML VIAL IV SCH (09:00)
[2017-09-24] MEDS: VENLAFAXINE HCL XR 75 MG CAP PO SCH (09:00)
[2017-09-24] MEDS: AMLODIPINE 5 MG TAB PO SCH (09:17)
[2017-09-24] MEDS: SPIRONOLACTONE 25 MG TABLET PO SCH (09:17)
[2017-09-24] MEDS: METOPROLOL TAR 25 MG TAB PO SCH (09:18)
[2017-09-24] MEDS: DIAZEPAM 5 MG TABLET PO SCH (09:18)
[2017-09-24] MEDS: ASPIRIN EC 81 MG TAB PO SCH (09:18)
[2017-09-24 09:47] VITALS: O2SAT 94
--- NOTE | 2017-09-24 11:32 | P.DS ---
Admission Date: 09/22/17 Discharge Date: 09/24/17 Primary Care Provider: Dr Saldana - PCP, Dr Hoffman - Cardiology Disposition: ROUTINE DISCHARGE Discharge Condition: GOOD Reason for Admission: COPD exacerbation Consultations: Pulmonology - Problems (1) COPD exacerbation Onset Date: 09/21/17 Current Visit: Yes Status: Acute (2) CHF (congestive heart failure) Current Visit: Yes Status: Acute Qualifiers: Heart failure type: diastolic Heart failure chronicity: acute on chronic Qualified Code(s): I50.33 - Acute on chronic diastolic (congestive) heart failure (3) HTN (hypertension) Onset Date: 12/07/16 Current Visit: No Status: Chronic Qualifiers: Hypertension type: essential hypertension Qualified Code(s): I10 - Essential (primary) hypertension (4) Hyperthyroidism Current Visit: No Status: Chronic Brief History of Present Illness: 81 y/o F with pmhx of copd, HTN and WA presented to the ED with complains of Cough and congestion. Pt states her cough has been going on for over 1 months and getting progressively worse. Last week she noted to have nasal drainage and got abx from PCP. However abx made her have diarrhea and thus she stopped it. She tried to make an appt with pcp but Dr Saldana was OOT so she decided to come to ED as she started having SOB. +subjective fever and chills at home. No other complains to offer at this time. Has nebs at home but used it without any relief. Hospital Course: Overall during the hospital stay patient remained stable Patient was initially admitted to the hospital for respiratory distress most likely secondary to COPD exacerbation. Patient initially was started on duo nebs, steroids, oxygen. Patient was successfully weaned off of oxygen here in the hospital. While here in the hospital patient was also complaining of having some lower extremity edema along with x-ray that was consistent with pulmonary congestion. Patient had an echocardiogram done here in the hospital which was consistent with impaired ventricular relaxation. Thus patient was started on amlodipine and was asked to continue taking her spironolactone and hydrochlorothiazide. Patient probably has a component of CHF exacerbation most likely diastolic that is aching to her respiratory distress. 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 Patient was saturating over 90% on room air in this did not qualify for home oxygenation. Patient was ambulating fine without oxygen as well and had O2 saturation of over 90% with exertion as well. Vital Signs/Physical Exam: Temp Pulse Resp BP Pulse Ox 97.4 F 75 18 179/84 H 95 09/24/17 08:00 09/24/17 09:18 09/24/17 08:00 09/24/17 09:18 09/24/17 08:00 General: Alert, In no apparent distress HEENT: Atraumatic, PERRLA, EOMI Neck: Supple, JVD not distended Respiratory: Clear to auscultation bilaterally, Normal air movement Cardiovascular: Regular rate/rhythm, Normal S1 S2 Gastrointestinal: Normal bowel sounds, No tenderness Musculoskeletal: No tenderness Integumentary: No rashes Neurological: Normal speech, Normal tone, Normal affect Lymphatics: No axilla or inguinal lymphadenopathy Laboratory Data at Discharge: WBC 12.6 K/uL (4.3-10.9) H D 09/24/17 04:37 Hgb 14.3 g/dL (12.0-15.0) 09/24/17 04:37 Hct 42.2 % (36.0-45.0) 09/24/17 04:37 Plt Count 327 K/uL (152-406) 09/24/17 04:37 PT 12.5 SECONDS (9.5-12.5) 09/20/17 17:05 INR 1.06 09/20/17 17:05 Sodium 140 mmol/L (136-145) 09/24/17 04:37 Potassium 3.6 mmol/L (3.5-5.1) 09/24/17 04:37 BUN 50 mg/dL (7-18) H 09/24/17 04:37 Creatinine 1.30 mg/dL (0.55-1.3) 09/24/17 04:37 Glucose 126 mg/dL (74-106) H 09/24/17 04:37 Magnesium 2.2 mg/dL (1.8-2.4) 09/20/17 17:05 Total Bilirubin 0.3 mg/dL (0.2-1.0) 09/24/17 04:37 AST 17 U/L (15-37) 09/24/17 04:37 ALT 18 U/L (12-78) 09/24/17 04:37 Alkaline Phosphatase 71 U/L (45-117) 09/24/17 04:37 Troponin I < 0.02 ng/mL (0.0-0.045) 09/21/17 01:30 Lipase 102 U/L (73-393) 09/20/17 17:05 Home Medications: Diazepam [Valium] 2.5 mg PO BID 09/20/17 Methimazole [Tapazole] 10 mg PO TID 09/20/17 Metoprolol Tartrate [Lopressor] 25 mg PO BID 09/20/17 Mirtazapine [Remeron*] 15 mg PO BEDTIME 09/20/17 Spironolact/Hydrochlorothiazid [Aldactazide 25-25 Tablet] 1 each PO DAILY Venlafaxine HCl [Venlafaxine HCl ER] 75 mg PO BID 09/20/17 Amlodipine [Norvasc*] 5 mg PO DAILY #30 tab 09/24/17 New Medications: Amlodipine [Norvasc*] 5 mg PO DAILY #30 tab Diet: Regular Activity: Ad alfreda Followup: Slade Saldana MD [Primary Care Provider] - 1-2 Weeks Arjun Zamora MD [ACTIVE - CAN ADMIT] - 1-2 Weeks
[2017-09-24] MEDS: ACETAMINOPHEN 500 MG TAB PO PRN (12:21)
[2017-09-24 14:58] VITALS: BP 154/83; TEMP 97.3
== END 2017-09-24 14:24 | disposition home or self-care (01) | DRG 190 ==
LOC: ER 16:27 → ERHOLD 18:33 → 2ND 21:24 → OBSVTOIN 09-22 12:38
PROVIDERS: ADMIT Physician Assistant; ATTEND Family Medicine
DX: J44.1 Chronic obstructive pulmonary disease with (acute) exacerbation (principal); I50.33 Acute on chronic diastolic (congestive) heart failure; I11.0 Hypertensive heart disease with heart failure; E05.90 Thyrotoxicosis, unspecified without thyrotoxic crisis or storm; I25.2 Old myocardial infarction; Z87.891 Personal history of nicotine dependence; F32.9 Major depressive disorder, single episode, unspecified; Z88.1 Allergy status to other antibiotic agents; B34.9 Viral infection, unspecified; J32.9 Chronic sinusitis, unspecified
CPT/HCPCS: 36415; 71045; 80048; 80053; 81003; 82805; 83690; 83735; 83880; 84145; 84484; 85025; 85610; 87045; 87046; 93005; 93306; 94640; 94760; 96374; 96375; 99285; G0378; J0456; J0696; J1940; J2920; J2930

== ENCOUNTER 2017-10-18 10:39 | Inpatient (IN) | payer OTHER, MEDICARE ==
--- OUTSIDE RECORDS SUMMARY | 2017-10-18 10:42 | XMS REPORT | Clinical Summary ---
:[address] [facility] Address [address] [place] [address] Phone Care Team Providers Name Role Phone [...] Hyperthyroidism 01/09/2017 COPD (chronic obstructive pulmonary disease) ([facility]) 01/09/2017 Coronary artery disease 01/09/2017 Headache 01/09/2017 Leukocytosis 01/09/2017 Word finding difficulty 01/09/2017 Resolved Problems Problem Noted Date Resolved Date CVA (cerebral vascular accident) ([facility]) 01/09/2017 01/09/2017 Dysarthria 01/09/2017 01/09/2017 Encounters Date Type Specialty Care Team Description 01/09/2017 - Hospital Encounter General Internal Pathak, Marvin, Chronic obstructive 01/13/2017 Medicine pulmonary diseaseMonica Kayley unspecified COPD Stephie Choudhary, type ([facility]);Coronary MD artery disease Marlys Diaz, involving pechanga MD heart without angina pectoris, unspecified vessel or lesion type;Cerebrovascular accident (CVA), unspecified mechanism ([facility]);Hyperthyroidis m;Uncontrolled hypertension;Dysarth randall;Leukocytosis, unspecified type;Acute cystitis without hematuria;Tachycardi a;Altered mental status, unspecified altered mental status type 01/09/2017 Orders Only General Internal Medicine after 10/17/2016 Immunizations Name Dates Previously Given Next Due [...] Not Detected Specimen Performing Laboratory Stool [facility] [address] This qualitative real-time polymerase chain reaction [...] Performing Laboratory Blood - Arm, Right [facility] [address] [address] CBC with platelet count + automated diff (01/13/2017 9:24 AM)Only the most recent of3 resultswithin the time period is included. Specimen Performing Laboratory Blood Narrative The following orders were created for panel order CBC with platelet count + automated diff. Procedure Abnormality Status --------- ------ CBC with platelet count ...[[id number]]AbnormalFinal result Please view results for these tests [...] PATIENTS. Specimen Performing Laboratory Blood - Arm, [address] [address] ECG 12 lead (01/12/2017 6:09 PM)Only the most recent of2 resultswithin the time period is included. Specimen Performing Laboratory GE MUSE Narrative Ventricular Rate 95 BPM Atrial Rate 95 BPM P-R Interval 150 ms QRS Duration 80 ms Q-T Interval 366 ms QTC Calculation(Bazett) 459 ms P [place] 67 degrees R [place] 5 degrees T [place] 44 degrees Sinus rhythm with Premature atrial [...] 366 ms QTC Calculation(Bazett) 459 ms P [place] 67 degrees R [place] 5 degrees T [place] 44 degrees Sinus rhythm with Premature atrial [...] - 4.94 uIU/mL Specimen Performing Laboratory Blood [address] [address] T4, free (01/12/2017 2:34 PM)Only the most recent of2 resultswithin the time period is included. Component Value Ref Range Free T4 1.12 0.70 - 1.48 ng/dL Specimen Performing Laboratory Blood [address] [address] XR foot 2 views right (01/12/2017 1:53 [...] MD Report Verified Date/Time:01/12/2017 16:52:45 Reading Location: [address] Consult Reading Room Procedure Note Interface, [...] Report Verified Date/Time: 01/12/2017 16:52:45 Reading Location: [facility] B1 C013 Consult Reading Room Blood culture (01/09/2017 5:07 PM)Only the most recent of2 resultswithin the time period is included. Component Value Ref Range Result No growth in 5 days Specimen Performing Laboratory Blood - Arm, Right [facility] [address] [place] [address] MR brain without IV contrast (01/09/2017 4:12 [...] MD Report Verified Date/Time:01/09/2017 16:03:04 Reading Location: [address] Neuro Reading Room Procedure Note Interface, [...] Report Verified Date/Time: 01/09/2017 16:03:04 Reading Location: [address] Neuro Reading Room Urinalysis w/Microscopic + Reflex to Culture (01/09/2017 3:02 PM) Component Value Ref Range Color, UA Light Yellow Clarity, UA Hazy Specific [place], UA 1.010 1.001 - 1.035 pH, UA [...] Performing Laboratory Urine - Urine, Voided [facility] [address] [address] Urinalysis w/Microscopic (01/09/2017 3:02 PM) Component Value Ref Range Color, UA Light Yellow Clarity, UA Hazy Specific [place], UA 1.010 1.001 - 1.035 pH, UA [...] Specimen Performing Laboratory Urine - Urine, Voided [address] [address] Urine culture (01/09/2017 3:02 PM)Only the most [...] Specimen Performing Laboratory Urine - Urine, Voided [address] [address] Narrative 10-19,000 col/mL skin ranjith Vitamin B12 and Folate (01/09/2017 6:39 AM) Component Value Ref Range Vitamin B12 829 (H) 213 - 816 pg/mL Folate 15.9 >=7.0 ng/mL Specimen Performing Laboratory Blood [address] [address] C-Reactive Protein (01/09/2017 6:39 AM) Component Value Ref Range CRP 1.74 (H) 0.00 - 0.50 mg/dL Specimen Performing Laboratory Blood [address] [address] Narrative Fasting Troponin I (01/09/2017 6:39 AM) Component Value Ref Range Troponin I 0.01 0.00 - 0.03 ng/mL Specimen Performing Laboratory Blood [address] [address] Narrative Troponin I (TnI) levels must be [...] RPR Nonreactive Nonreactive Specimen Performing Laboratory Blood [address] [address] Sedimentation rate (01/09/2017 6:39 AM) Component Value Ref Range Sed Rate 52 (H) 0 - 40 mm/HR Specimen Performing Laboratory [address] [address] Homocysteine (01/09/2017 6:39 AM) Component Value Ref Range Homocysteine 10.2 5.1 - 15.4 umol/L Specimen Performing Laboratory [address] [address] Hemoglobin A1c (01/09/2017 6:39 AM) Component Value Ref Range Hemoglobin A1C 5.8 4.3 - 6.1 % Specimen Performing Laboratory Blood [address] [address] Creatine Kinase (CK), Total and MB (01/09/2017 6:39 AM) Component Value Ref Range Total CK 30 29 - 200 U/L CK-MB 0.8 0.0 - 6.6 ng/mL MB Relative Index 2.7 % Specimen Performing Laboratory [address] [address] Narrative CK-MB Reference Range: <6.7Normal 6.7-10.0Borderline >10.0 [...] - 55 U/L Specimen Performing Laboratory Blood [address] [address] Narrative Fasting Fasting lipid panel (01/09/2017 6:39 AM) Component Value Ref Range Triglycerides 86 mg/dL Cholesterol 194 mg/dL HDL 66 mg/dL LDL Calculated 111 mg/dL Specimen Performing Laboratory Blood [facility] [address] [place] [address] Narrative Triglyceride Reference Range: Low Risk <150 [id number] High Risk 200-499 Very High Risk>=500 Cholesterol Reference Range: Low Risk <200 [id number] High Risk>240 HDL Cholesterol Reference Range: Low Risk >=60 High Risk <40 LDL Cholesterol Reference Range: Optimal<100 Near [id number] Very High >=190 Fasting after 10/17/2016
--- OUTSIDE RECORDS SUMMARY | 2017-10-18 10:42 | XMS REPORT ---
:1935 Author Organization [facility] [address] [address] [facility] [address] [place] [id number] Care Team Providers Name Role Phone HAILEE DOWELL Unavailable Unavailable Problems This patient has no known problems. Allergies, Adverse Reactions, Alerts This patient has no known allergies or adverse reactions. Medications This patient has no known medications. Results Test Description Test Time Test Comments Text Results Atomic Results Result Comments BLOOD CULTURE 2017-01-15 00:00:00 Test Item Value Reference Range Comments CULTURE (BEAKER) (test psmb=8828) No growth in 5 days BLOOD [id number] 00:00:00 Test Item Value Reference Range Comments CULTURE (BEAKER) (test dblc=7176) No growth in 5 days CLOSTRIDIUM DIFFICILE TOXIN [id number] 17:09:00 Test Item Value Reference Range Comments CLOSTRIDIUM DIFFICILE TOXIN, PCR (BEAKER) (test Not Detected Not Detected lggz=0899) This qualitative real-time polymerase chain reaction assay [...] a positive result is not recommended.BASIC METABOLIC [id number] 10:06:00 Test Item Value Reference Range Comments SODIUM (BEAKER) (test 138 meq/L 136-145 vzis=416) POTASSIUM (BEAKER) (test 4.2 meq/L 3.5-5.1 Specimen slightly cufv=236) hemolyzed CHLORIDE (BEAKER) (test 104 meq/L 98-107 orcc=063) CO2 (BEAKER) (test 24 meq/L 22-29 dqfp=859) BLOOD UREA NITROGEN 26 mg/dL 7-21 (BEAKER) (test vniu=520) CREATININE (BEAKER) (test 0.94 mg/dL 0.57-1.25 Specimen slightly elrl=965) hemolyzed GLUCOSE RANDOM (BEAKER) 100 mg/dL 70-105 (test jfib=665) CALCIUM (BEAKER) (test 8.8 mg/dL 8.4-10.2 uofs=339) EGFR (BEAKER) (test 57 mL/min/1.73 sq m ESTIMATED GFR IS NOT nlrs=1759) ACCURATE CREATININE CLEARANCE IN PREDICTING GLOMERULAR FILTRATION RATE. ESTIMATED GFR IS NOT APPLICABLE FOR DIALYSIS PATIENTS. CBC W/PLT COUNT & AUTO [id number] 09:48:00 Test Item Value Reference Range Comments WHITE BLOOD CELL COUNT 12.9 K/ L 3.5-10.5 (BEAKER) (test xsoo=956) RED BLOOD CELL COUNT (BEAKER) 4.59 M/ L 3.93-5.22 (test jyai=192) HEMOGLOBIN (BEAKER) (test 13.4 GM/DL 11.2-15.7 puce=584) HEMATOCRIT (BEAKER) (test 43.1 % 34.1-44.9 rphr=097) MEAN CORPUSCULAR VOLUME 93.9 fL 79.4-94.8 (BEAKER) (test akwy=127) MEAN CORPUSCULAR HEMOGLOBIN 29.2 pg 25.6-32.2 (BEAKER) (test gsvf=805) MEAN CORPUSCULAR HEMOGLOBIN 31.1 GM/DL 32.2-35.5 CONC (BEAKER) (test drmz=679) RED CELL DISTRIBUTION WIDTH 12.8 % 11.7-14.4 (BEAKER) (test vigi=424) PLATELET COUNT (BEAKER) (test 286 K/CU MM 150-450 .Discordant from previous boma=767) results. Clinical correlation suggested. MEAN PLATELET VOLUME (BEAKER) 10.3 fL 9.4-12.3 (test jwxu=974) NUCLEATED RED BLOOD CELLS 0 /100 WBC 0-0 (BEAKER) (test bmch=410) NEUTROPHILS RELATIVE PERCENT 70 % (BEAKER) (test ymyz=652) LYMPHOCYTES RELATIVE PERCENT 17 % (BEAKER) (test vwzo=567) MONOCYTES RELATIVE PERCENT 8 % (BEAKER) (test lceo=552) EOSINOPHILS RELATIVE PERCENT 3 % (BEAKER) (test mjxm=024) BASOPHILS RELATIVE PERCENT 1 % (BEAKER) (test hkcp=460) NEUTROPHILS ABSOLUTE COUNT 9.04 K/ L 1.56-6.13 (BEAKER) (test dydk=848) LYMPHOCYTES ABSOLUTE COUNT 2.22 K/ L 1.18-3.74 (BEAKER) (test sbos=128) MONOCYTES ABSOLUTE COUNT 0.99 K/ L 0.24-0.36 (BEAKER) (test jagw=503) EOSINOPHILS ABSOLUTE COUNT 0.32 K/ L 0.04-0.36 (BEAKER) (test djks=049) BASOPHILS ABSOLUTE COUNT 0.15 K/ L 0.01-0.08 (BEAKER) (test jddz=063) IMMATURE 1 % 0-1 GRANULOCYTES-RELATIVE PERCENT (BEAKER) (test rokg=9315) RAD, FOOT, 2 VIEWS, [id number] 16:52:00Reason for exam:->pain with ambulationFINAL REPORT Radiograph [...] Peterson Verified Date/Time: 01/12/2017 16:52:45 Reading Location: [address] Consult Reading Room T4, [id number] 16:26:00 Test Item Value Reference Range Comments FREE T4 (BEAKER) (test ctzy=252) 1.12 ng/dL 0.70-1.48 TSH/FREE T4 IF [id number] 15:46:00 Test Item Value Reference Range Comments THYROID STIMULATING HORMONE (BEAKER) (test 0.03 uIU/mL 0.35-4.94 dqzf=873) BASIC METABOLIC [id number] 15:35:00 Test Item Value Reference Range Comments SODIUM (BEAKER) (test 136 meq/L 136-145 fxrn=558) POTASSIUM (BEAKER) (test 4.1 meq/L 3.5-5.1 cnlz=121) CHLORIDE (BEAKER) (test 99 meq/L 98-107 ozmc=146) CO2 (BEAKER) (test 24 meq/L 22-29 grxj=220) BLOOD UREA NITROGEN 32 mg/dL 7-21 (BEAKER) (test kcon=271) CREATININE (BEAKER) (test 1.12 mg/dL 0.57-1.25 dqkg=949) GLUCOSE RANDOM (BEAKER) 164 mg/dL 70-105 (test yfsh=718) CALCIUM (BEAKER) (test 10.2 mg/dL 8.4-10.2 rjdy=691) EGFR (BEAKER) (test 46 mL/min/1.73 sq m ESTIMATED GFR IS NOT wwfg=8797) ACCURATE CREATININE CLEARANCE IN PREDICTING GLOMERULAR FILTRATION RATE. ESTIMATED GFR IS NOT APPLICABLE FOR DIALYSIS PATIENTS. CBC W/PLT COUNT & AUTO [id number] 15:06:00 Test Item Value Reference Range Comments WHITE BLOOD CELL COUNT (BEAKER) (test tqbu=408) 17.4 K/ L 3.5-10.5 RED BLOOD CELL COUNT (BEAKER) (test qqxh=397) 4.93 M/ L 3.93-5.22 HEMOGLOBIN (BEAKER) (test yylw=577) 14.0 GM/DL 11.2-15.7 HEMATOCRIT (BEAKER) (test goxr=573) 44.8 % 34.1-44.9 MEAN CORPUSCULAR VOLUME (BEAKER) (test noqm=922) 90.9 fL 79.4-94.8 MEAN CORPUSCULAR HEMOGLOBIN (BEAKER) (test 28.4 pg 25.6-32.2 wdpn=249) MEAN CORPUSCULAR HEMOGLOBIN CONC (BEAKER) (test 31.3 GM/DL 32.2-35.5 jpll=628) RED CELL DISTRIBUTION WIDTH (BEAKER) (test 12.9 % 11.7-14.4 ttsp=719) PLATELET COUNT (BEAKER) (test umet=874) 360 K/CU MM 150-450 MEAN PLATELET VOLUME (BEAKER) (test gvre=400) 10.5 fL 9.4-12.3 NUCLEATED RED BLOOD CELLS (BEAKER) (test 0 /100 WBC 0-0 ouwc=590) NEUTROPHILS RELATIVE PERCENT (BEAKER) (test 82 % mgfh=885) LYMPHOCYTES RELATIVE PERCENT (BEAKER) (test 11 % kdyr=988) MONOCYTES RELATIVE PERCENT (BEAKER) (test 4 % yrnm=867) EOSINOPHILS RELATIVE PERCENT (BEAKER) (test 0 % tvsn=196) BASOPHILS RELATIVE PERCENT (BEAKER) (test 1 % zsyk=838) NEUTROPHILS ABSOLUTE COUNT (BEAKER) (test 14.33 K/ L 1.56-6.13 czlp=251) LYMPHOCYTES ABSOLUTE COUNT (BEAKER) (test 1.97 K/ L 1.18-3.74 qvkc=944) MONOCYTES ABSOLUTE COUNT (BEAKER) (test 0.71 K/ L 0.24-0.36 bkqo=097) EOSINOPHILS ABSOLUTE COUNT (BEAKER) (test 0.05 K/ L 0.04-0.36 dnfk=299) BASOPHILS ABSOLUTE COUNT (BEAKER) (test 0.16 K/ L 0.01-0.08 ckhf=325) IMMATURE GRANULOCYTES-RELATIVE PERCENT (BEAKER) 1 % 0-1 (test zpai=5699) URINE [id number] 08:21:00 Test Item Value Reference Range Comments CULTURE (BEAKER) (test vuup=1058) Amikacin (test code=1) Ampicillin + Sulbactam (test code=6) Aztreonam (test code=32) Cefepime (test code=51) Cefoxitin (test code=68) Ceftazidime (test code=27) Ceftriaxone (test code=52) Ertapenem (test code=38) Gentamicin (test code=18) Levofloxacin (test code=22) Meropenem (test code=34) Nitrofurantoin (test code=23) Piperacillin + Tazobactam (test code=29) Tetracycline (test code=2) Tobramycin (test code=25) Trimethoprim + Sulfamethoxazole (test code=47) CULTURE (BEAKER) (test ooyj=0072) >100,000 col/mL Proteus mirabilis <10,000 col/mL skin ranjith<10,000 col/mL gram negative rods of a second typeMR, BRAIN, WITHOUT [id number] 16:03:00Reason for exam:->Ischemic Stroke EvaluationFINAL REPORT MRI [...] [place] Verified Date/Time: 16:03:04 Reading Location: [address] Neuro Reading Room URINALYSIS W/ [id number] 15:35:00 Test Item Value Reference Range Comments COLOR (BEAKER) (test qqtl=719) Light Yellow CLARITY (BEAKER) (test vmdt=046) Hazy SPECIFIC GRAVITY UA (BEAKER) (test twkj=448) 1.010 1.001-1.035 PH UA (BEAKER) (test xfjp=615) 8.0 5.0-8.0 PROTEIN UA (BEAKER) (test vmsg=187) 20 mg/dL Negative GLUCOSE UA (BEAKER) (test qlbd=394) Negative Negative KETONES UA (BEAKER) (test xlrh=864) Negative Negative BILIRUBIN UA (BEAKER) (test lrmx=591) Negative Negative BLOOD UA (BEAKER) (test guov=621) Negative Negative NITRITE UA (BEAKER) (test eksp=276) Negative Negative LEUKOCYTE ESTERASE UA (BEAKER) (test kayy=017) Large Negative UROBILINOGEN UA (BEAKER) (test vvvi=107) 0.2 mg/dL 0.2-1.0 RBC UA (BEAKER) (test kkek=912) 2 /HPF WBC UA (BEAKER) (test ufju=434) 87 /HPF SQUAMOUS EPITHELIAL (BEAKER) (test xdtf=311) 3 /HPF SOURCE(BEAKER) (test kwqz=6971) Urine, Voided URINALYSIS W/ REFLEX URINE [id number] 15:35:00 Test Item Value Reference Range Comments COLOR (BEAKER) (test ujce=617) Light Yellow CLARITY (BEAKER) (test mxkr=585) Hazy SPECIFIC GRAVITY UA (BEAKER) (test iwsd=839) 1.010 1.001-1.035 PH UA (BEAKER) (test gqie=284) 8.0 5.0-8.0 PROTEIN UA (BEAKER) (test dhhm=149) 20 mg/dL Negative GLUCOSE UA (BEAKER) (test cdcy=871) Negative Negative KETONES UA (BEAKER) (test jkio=859) Negative Negative BILIRUBIN UA (BEAKER) (test cdpd=374) Negative Negative BLOOD UA (BEAKER) (test kusv=945) Negative Negative NITRITE UA (BEAKER) (test dnya=528) Negative Negative LEUKOCYTE ESTERASE UA (BEAKER) (test uxwv=104) Large Negative UROBILINOGEN UA (BEAKER) (test vhsd=272) 0.2 mg/dL 0.2-1.0 RBC UA (BEAKER) (test ejwc=279) 2 /HPF WBC UA (BEAKER) (test cyoj=362) 87 /HPF SQUAMOUS EPITHELIAL (BEAKER) (test loru=597) 3 /HPF SOURCE(BEAKER) (test zupn=6038) Urine, Voided [id number] 14:30:00 Test Item Value Reference Range Comments RPR SCREEN (BEAKER) (test umpp=783) Nonreactive Nonreactive HEMOGLOBIN [id number] 10:58:00 Test Item Value Reference Range Comments HEMOGLOBIN A1C (BEAKER) (test bchj=421) 5.8 % 4.3-6.1 SEDIMENTATION [id number] 10:44:00 Test Item Value Reference Range Comments SEDIMENTATION RATE, ERYTHROCYTE (BEAKER) (test 52 mm/HR 0-40 izvf=677) T4, [id number] 09:16:00 Test Item Value Reference Range Comments FREE T4 (BEAKER) (test upbr=909) 0.94 ng/dL 0.70-1.48 TSH/FREE T4 IF [id number] 08:42:00 Test Item Value Reference Range Comments THYROID STIMULATING HORMONE (BEAKER) (test 0.05 uIU/mL 0.35-4.94 bimb=441) VITAMIN B12 AND [id number] 08:37:00 Test Item Value Reference Range Comments VITAMIN B12 (BEAKER) (test yvvz=031) 829 pg/mL 213-816 FOLATE (BEAKER) (test geju=808) 15.9 ng/mL >=7.0 [id number] 08:36:00 Test Item Value Reference Range Comments HOMOCYSTEINE (BEAKER) (test djgz=070) 10.2 umol/L 5.1-15.4 LIPID [id number] 08:26:00 Test Item Value Reference Range Comments TRIGLYCERIDES (BEAKER) (test eqtw=449) 86 mg/dL CHOLESTEROL (BEAKER) (test fikp=310) 194 mg/dL HDL CHOLESTEROL (BEAKER) (test paqg=780) 66 mg/dL LDL CHOLESTEROL CALCULATED (BEAKER) (test 111 mg/dL wemg=299) Triglyceride Reference Range: Low Risk <150 Borderline 150- 199 High Risk 200-499 Very High Risk >=500Cholesterol Reference Range: Low Risk <200 Borderline 200-239 High Risk > 240HDL Cholesterol Reference Range: Low Risk >=60 High Risk <40LDL Cholesterol Reference Range: Optimal <100 Near Optimal 100-129 Borderline 130-159 High 160-189 Very High >=190 FastingBASIC METABOLIC [id number] 08:26:00 Test Item Value Reference Range Comments SODIUM (BEAKER) (test 136 meq/L 136-145 lctx=611) POTASSIUM (BEAKER) (test 4.7 meq/L 3.5-5.1 qcgk=394) CHLORIDE (BEAKER) (test 99 meq/L 98-107 qxxz=471) CO2 (BEAKER) (test 24 meq/L 22-29 quvz=081) BLOOD UREA NITROGEN 27 mg/dL 7-21 (BEAKER) (test tmiz=044) CREATININE (BEAKER) (test 1.04 mg/dL 0.57-1.25 mzdg=583) GLUCOSE RANDOM (BEAKER) 133 mg/dL 70-105 (test stjg=822) CALCIUM (BEAKER) (test 8.8 mg/dL 8.4-10.2 pjyn=088) EGFR (BEAKER) (test 51 mL/min/1.73 sq m ESTIMATED GFR IS NOT iyiu=1614) ACCURATE CREATININE CLEARANCE IN PREDICTING GLOMERULAR FILTRATION RATE. ESTIMATED GFR IS NOT APPLICABLE FOR DIALYSIS PATIENTS. FastingHEPATIC FUNCTION [id number] 08:26:00 Test Item Value Reference Range Comments TOTAL PROTEIN (BEAKER) (test mbej=040) 6.8 gm/dL 6.0-8.3 ALBUMIN (BEAKER) (test ccvf=6897) 3.4 g/dL 3.5-5.0 BILIRUBIN TOTAL (BEAKER) (test ghdd=491) 0.6 mg/dL 0.2-1.2 BILIRUBIN DIRECT (BEAKER) (test dkqg=353) 0.2 mg/dL 0.1-0.5 ALKALINE PHOSPHATASE (BEAKER) (test zeok=826) 67 U/L 40-150 AST (SGOT) (BEAKER) (test hjhn=906) 16 U/L 5-34 ALT (SGPT) (BEAKER) (test eagg=031) 11 U/L 6-55 FastingCREATINE KINASE (CK), TOTAL AND [id number] 08:26:00 Test Item Value Reference Range Comments CREATINE KINASE TOTAL (BEAKER) (test ivso=427) 30 U/L 29-200 CREATINE KINASE-MB (BEAKER) (test sqyw=824) 0.8 ng/mL 0.0-6.6 CREATINE KINASE-MB INDEX (BEAKER) (test oyay=759) 2.7 % CK-MB Reference Range:<6.7 Normal6.7-10.0 Borderline>10.0 AbnormalFastingFastingC-REACTIVE [id number] 08:26:00 Test Item Value Reference Range Comments C-REACTIVE PROTEIN (BEAKER) (test ixnt=442) 1.74 mg/dL 0.00-0.50 FastingCBC W/PLT COUNT & AUTO [id number] 07:57:00 Test Item Value Reference Range Comments WHITE BLOOD CELL COUNT (BEAKER) (test xxmr=018) 16.6 K/ L 3.5-10.5 RED BLOOD CELL COUNT (BEAKER) (test lzxw=879) 4.21 M/ L 3.93-5.22 HEMOGLOBIN (BEAKER) (test tscs=370) 12.3 GM/DL 11.2-15.7 HEMATOCRIT (BEAKER) (test rqye=513) 38.4 % 34.1-44.9 MEAN CORPUSCULAR VOLUME (BEAKER) (test nknn=710) 91.2 fL 79.4-94.8 MEAN CORPUSCULAR HEMOGLOBIN (BEAKER) (test 29.2 pg 25.6-32.2 moaz=601) MEAN CORPUSCULAR HEMOGLOBIN CONC (BEAKER) (test 32.0 GM/DL 32.2-35.5 bdjm=192) RED CELL DISTRIBUTION WIDTH (BEAKER) (test 12.9 % 11.7-14.4 xmla=091) PLATELET COUNT (BEAKER) (test rqpr=396) 296 K/CU MM 150-450 MEAN PLATELET VOLUME (BEAKER) (test ntow=632) 10.3 fL 9.4-12.3 NUCLEATED RED BLOOD CELLS (BEAKER) (test 0 /100 WBC 0-0 cxzr=945) NEUTROPHILS RELATIVE PERCENT (BEAKER) (test 78 % ssbi=208) LYMPHOCYTES RELATIVE PERCENT (BEAKER) (test 15 % kmcc=897) MONOCYTES RELATIVE PERCENT (BEAKER) (test 5 % uznw=335) EOSINOPHILS RELATIVE PERCENT (BEAKER) (test 1 % tlud=145) BASOPHILS RELATIVE PERCENT (BEAKER) (test 1 % bwin=673) NEUTROPHILS ABSOLUTE COUNT (BEAKER) (test 12.92 K/ L 1.56-6.13 vfhq=892) LYMPHOCYTES ABSOLUTE COUNT (BEAKER) (test 2.40 K/ L 1.18-3.74 hjsw=540) MONOCYTES ABSOLUTE COUNT (BEAKER) (test 0.90 K/ L 0.24-0.36 iyob=778) EOSINOPHILS ABSOLUTE COUNT (BEAKER) (test 0.08 K/ L 0.04-0.36 qkwd=348) BASOPHILS ABSOLUTE COUNT (BEAKER) (test 0.11 K/ L 0.01-0.08 izfv=538) IMMATURE GRANULOCYTES-RELATIVE PERCENT (BEAKER) 1 % 0-1 (test ahrr=4646) TROPONIN [id number] 07:47:00 Test Item Value Reference Range Comments TROPONIN I (BEAKER) (test xjdu=541) 0.01 ng/mL 0.00-0.03 Troponin I (TnI) levels [...]
[2017-10-18] MEDS ORDERED: ALBUTEROL 2.5 MG/3 ML NEB SOL ONE (11:01)
[2017-10-18] MEDS ORDERED: METHYLPREDNISOLONE 125 MG INJ ONE (11:02)
[2017-10-18] MEDS ORDERED: NA CHLORIDE 0.9% 1,000 ML ONE (11:03)
[2017-10-18] MEDS ORDERED: CEFTRIAXONE/SWI 1gm 1 GM/10 ML SYR ONE (11:03)
[2017-10-18] MEDS ORDERED: AZITHROMYCIN 500 MG/250 ML BAG ONE (11:03)
[2017-10-18 11:38] LABS: Protime INR 1.06
--- NOTE | 2017-10-18 11:48 | RAD REPORT ---
EXAM DESCRIPTION: RAD - Chest Single View - 10/18/2017 11:42 am CLINICAL HISTORY: Cough;COPD Chest pain. COMPARISON: Chest Single View dated 09/20/2017; Chest Single View dated 06/07/2017; Chest Single View d ated 01/08/2017; Chest Single View dated 12/06/2016 FINDINGS: Portable technique limits examination quality. The lungs are emphysematous but clear. The heart is normal in size. Mildly tortuous thoracic aorta. IMPRESSION: Mild COPD.
[2017-10-18 11:49] LABS: Albumin 3.8 g/dL (3.4-5.0); Bilirubin Direct 0.1 mg/dL (0-0.2); Bilirubin Total 0.4 mg/dL (0.2-1.0); CKMB Creatine Kinase MB 2.2 ng/mL (0.3-3.6); Magnesium 2.3 mg/dL (1.8-2.4); Potassium 4.3 mmol/L (3.5-5.1); Protein, Total 8.4 g/dL (6.4-8.2); Thyroid Stimulating Hormone 0.95 uIU/mL (0.36-3.74)
[2017-10-18 12:30] LABS: Absolute Lymphocytes (CBC) 1.7 K/uL (0.7-4.9); Absolute Monocytes 0.6 K/uL (0.1-1.3); Absolute Neutrophil 9.8 K/uL (1.8-8.0); Basophils % 0.9 % (0-1.3); Eosinophils % 5.2 % (0-4.4); Hematocrit 45.8 % (36.0-45.0); Lymphocytes % 13.4 % (15.3-44.8); MCH 30.2 pg (27.0-35.0); MPV 9.2 fL (7.6-11.3); Monocytes % 4.6 % (3.3-12.3); RBC Red Blood Cell Count 5.03 M/uL (3.86-4.86)
--- NOTE | 2017-10-18 12:45 | ER ---
Nurse's Notes [facility] Name: Elida Pradhan Age: 81 yrs Sex: Female : 1935 Arrival Date: 10/18/2017 Time: 10:52 Bed 2 Private MD: Diagnosis: Dyspnea;Chronic obstructive pulmonary disease with (acute) exacerbation;Hypoxemia;Essential (primary) hypertension Presentation: 10/18 10:36 Presenting complaint: EMS states: dyspnea x 3 days. On EMS arrival pt was 84% RA, sv wheezing noted, A\T\A 2:1 given, attempted CPAP but pt was unable to tolerate it. BP 198/143 HR-104 RR-32, ETCO2-33. Pt on nebulizer on arrival to ER. Transition of care: patient was not received from another setting of care. Onset of symptoms was October 15, 2017. Risk Assessment: Do you want to hurt yourself or someone else? Patient reports no desire to harm self or others. Initial Sepsis Screen: Does the patient meet any 2 criteria? RR > 20 per min. HR > 90 bpm. Yes Does the patient have a suspected source of infection? No. Patient's initial sepsis screen is negative. Care prior to arrival: Medication(s) given: Albuterol Neb x 2, Atrovent Neb x 1, Med neb given. IV attempted but was unsuccessful. 10:36 Method Of Arrival: EMS: [facility] sv 10:36 Acuity: TALYA 1 sv Triage Assessment: 10:40 General: Appears distressed, obese, well developed, Behavior is calm, cooperative. sv Pain: Denies pain. EENT: No signs and/or symptoms were reported regarding the EENT system. Neuro: Level of Consciousness is awake, alert, obeys commands, Oriented to person, place, time, situation, Moves all extremities. Full function. Cardiovascular: Heart tones S1 S2 present Patient's skin is warm and dry. Pulses are 3+ in right radial artery and left radial artery Rhythm is sinus tachycardia. Respiratory: Reports shortness of breath at rest labored breathing Respiratory effort is even, labored, Respiratory pattern is symmetrical, tachypnea Breath sounds with wheezes bilaterally. Derm: Skin is pink, warm \T\ dry. Musculoskeletal: Range of motion: intact in all extremities. Historical: - Allergies: 11:23 Levaquin; sv - Home Meds: 11:23 Aldactazide 25mg-25mg tablet PO daily [Active]; diazepam 5 mg Oral tab 1 tab 2 times sv per day [Active]; Effexor XR XR 75 mg PO BID Oral cp24 1 cap once daily [Active]; ellipta [Active]; hydrocodone-acetaminophen 5-325 mg Oral tab twice a day [Active]; Lotrisone 1-0.05 % Topical crea 2 times per day [Active]; methimazole 10 mg Oral tab 1 tab three times a day [Active]; metoprolol tartrate 25 mg Oral tab 1 tab 2 times per day [Active]; mirtazapine 15 mg Oral TbDL 1 tab once daily [Active]; nystatin 100,000 unit/gram Topical powd 2 times per day [Active]; prednisone 5 mg Oral tab once daily [Active]; ProAir HFA 90 mcg/actuation inhalation HFAA 2 puffs every 6 hours [Active]; - PMHx: 11:23 COPD; DYSPHAGIA; Hypertension; Myocardial infarction; sv - PSHx: 11:23 None; sv - Immunization history:: Adult Immunizations up to date. - Family history:: not pertinent. - Ebola Screening: : No symptoms or risks identified at this time. - Social history:: Smoking status: Patient/guardian denies using tobacco. Screenin:55 Abuse screen: Denies threats or abuse. Denies injuries from another. Nutritional sv screening: No deficits noted. Tuberculosis screening: No symptoms or risk factors identified. Fall Risk None identified. Assessment: 10:45 Reassessment: Pt placed on BIPAP by Lesly BECKMAN sv 11:27 Reassessment: Patient appears in no apparent distress at this time. Patient and/or sv family updated on plan of care and expected duration. Pain level reassessed. Patient states symptoms have improved. Respiratory: Respiratory effort is even, unlabored, Respiratory pattern is symmetrical, tachypnea. 12:45 Reassessment: Patient appears in no apparent distress at this time. Patient and/or sv family updated on plan of care and expected duration. Pain level reassessed. Patient is alert, oriented x 3, equal unlabored respirations, skin warm/dry/pink. Patient states feeling better. Patient states symptoms have improved. 14:05 Reassessment: Patient appears in no apparent distress at this time. Patient and/or sv family updated on plan of care and expected duration. Pain level reassessed. Patient is alert, oriented x 3, equal unlabored respirations, skin warm/dry/pink. Patient states feeling better. Patient states symptoms have improved. Vital Signs: 10:42 BP 199 / 121; Pulse 104; Resp 40; Temp 97.6; Pulse Ox 100% on Nebulizer Mask; sv 11:28 Pulse 104; Resp 24; Pulse Ox 97% on 45% BiPAP; sv 11:30 BP 187 / 103; sv 12:15 BP 169 / 79; Pulse 93; Resp 14; Pulse Ox 99% on 45% BiPAP; sv 12:58 BP 149 / 85; Pulse 97; Resp 14; Pulse Ox 100% on 45% BiPAP; sv 13:45 BP 159 / 94; Pulse 100; Resp 19; Pulse Ox 99% on 45% BiPAP; sv ED Course: 10:52 Patient arrived in ED. bd 10:52 Donato Martinez MD is Attending Physician. seth 10:55 Marjorie Bonilla RN is Primary Nurse. sv 10:55 Initial lab(s) drawn, by me, sent to lab. First set of blood cultures drawn by me. sv Inserted saline lock: 22 gauge in left antecubital area, using aseptic technique. ,using aseptic technique. diffusics Blood collected. Flushed left antecubital with 5 ml normal saline. 10:55 Arm band placed on right wrist. sv 10:55 Patient has correct armband on for positive identification. Placed in gown. Bed in low sv position. Call light in reach. Side rails up X2. gambling monitor on. Pulse ox on. NIBP on. Door closed. Warm blanket given. Head of bed elevated. 11:10 Second set of blood cultures drawn by me. sv 11:13 BIPAP Sent. sv 11:19 Triage completed. sv 11:37 Straight cath inserted, using sterile technique, Patient tolerated well. mh5 11:38 Urine collected: straight cath specimen, clear. mh5 11:39 X-ray completed. Portable x-ray completed in exam room. Patient tolerated procedure mh1 well. 11:43 XRAY Chest (1 view) In Process Unspecified. EDMS 12:43 Slade Saldana MD is Hospitalizing Provider. seth 14:06 No provider procedures requiring assistance completed. Patient admitted, IV remains in sv place. intact. Administered Medications: 11:00 Drug: Albuterol - atroVENT (3:1) (2.5 mg - 0.5 mg) 3 ml Route: Nebulizer; sv 11:43 Follow up: Response: No adverse reaction sv 11:11 Drug: NS 0.9% 1000 ml Route: IV; Rate: 75 ml/hr; Site: left antecubital; sv 14:15 Follow up: Response: No adverse reaction; IV Status: Infusion continued upon admission sv 11:11 Drug: SOLU-Medrol 125 mg Route: IVP; Site: left antecubital; sv 11:43 Follow up: Response: No adverse reaction sv 11:13 Drug: Rocephin - (cefTRIAXone) 1 grams Route: IVPB; Infused Over: 30 mins; Site: left sv antecubital; 11:17 Follow up: Response: No adverse reaction; IV Status: Completed infusion; IV Intake: 10mlsv 11:15 Drug: Zithromax 500 mg Route: IVPB; Infused Over: 1 hrs; Site: left antecubital; sv 12:45 CANCELLED (Duplicate Order): Norvasc 10 mg PO once seth 12:45 CANCELLED (Duplicate Order): Enalaprilat 2.5 mg IV at per protocol once; (slow IV push) seth 14:11 Drug: Norvasc 5 mg Route: PO; sv 14:15 Follow up: Response: No adverse reaction sv Intake: 11:17 IV: 10ml; Total: 10ml. sv Outcome: 12:44 Decision to Hospitalize by Provider. seth 14:06 Admitted to Tele accompanied by tech, via stretcher, room 413, with oxygen, with chart, sv Report called to Alyce CAPUTO 14:06 Condition: stable 14:06 Instructed on the need for admit. 14:30 Patient left the ED. sv Signatures: Dispatcher [employer] EDMS Swati Otto Stephanie RN RN sv Donato Martinez MD MD cha Harvey, Martha 1 Jarett, Johanna 5 Corrections: (The following items were deleted from the chart) 11:20 10:36 Acuity: TALYA 2 sv sv
--- NOTE | 2017-10-18 12:45 | EDPHYS ---
Physician Documentation [facility] Name: Elida Pradhan Age: 81 yrs Sex: Female : 1935 Arrival Date: 10/18/2017 Time: 10:52 Bed 2 Private MD: ED Physician Donato Martinez HPI: 10/18 10:55 This 81 yrs old Female presents to ER via Unassigned with complaints of sob. seth 10:55 The patient has shortness of breath at rest. Onset: The symptoms/episode began/occurred seth yesterday. Duration: The symptoms are continuous, and are steadily getting worse. The patient's shortness of breath has no apparent modifying factors. The patient or guardian reports cough, difficulty breathing. Modifying factors: The symptoms are alleviated by nothing. remaining still, the symptoms are aggravated by activity, talking. Associated signs and symptoms: The patient has no apparent associated signs or symptoms. Severity of symptoms: At their worst the symptoms were moderate in the emergency department the symptoms have improved moderately. The patient or guardian reports airway noise, flu symptoms. Historical: - Allergies: 11:23 Levaquin; sv - Home Meds: 11:23 Aldactazide 25mg-25mg tablet PO daily [Active]; diazepam 5 mg Oral tab 1 tab 2 times sv per day [Active]; Effexor XR XR 75 mg PO BID Oral cp24 1 cap once daily [Active]; ellipta [Active]; hydrocodone-acetaminophen 5-325 mg Oral tab twice a day [Active]; Lotrisone 1-0.05 % Topical crea 2 times per day [Active]; methimazole 10 mg Oral tab 1 tab three times a day [Active]; metoprolol tartrate 25 mg Oral tab 1 tab 2 times per day [Active]; mirtazapine 15 mg Oral TbDL 1 tab once daily [Active]; nystatin 100,000 unit/gram Topical powd 2 times per day [Active]; prednisone 5 mg Oral tab once daily [Active]; ProAir HFA 90 mcg/actuation inhalation HFAA 2 puffs every 6 hours [Active]; - PMHx: 11:23 COPD; DYSPHAGIA; Hypertension; Myocardial infarction; sv - PSHx: 11:23 None; sv - Immunization history:: Adult Immunizations up to date. - Family history:: not pertinent. - Ebola Screening: : No symptoms or risks identified at this time. - Social history:: Smoking status: Patient/guardian denies using tobacco. ROS: 10:55 Constitutional: Negative for fever, chills, and weight loss, Eyes: Negative for injury, seth pain, redness, and discharge, ENT: Negative for injury, pain, and discharge, Neck: Negative for injury, pain, and swelling, Cardiovascular: Negative for chest pain, palpitations, and edema, Abdomen/GI: Negative for abdominal pain, nausea, vomiting, diarrhea, and constipation, Back: Negative for injury and pain, : Negative for injury, bleeding, discharge, and swelling, MS/Extremity: Negative for injury and deformity, Skin: Negative for injury, rash, and discoloration, Neuro: Negative for headache, weakness, numbness, tingling, and seizure. 10:55 Respiratory: Positive for cough, shortness of breath, wheezing, inspiratory, expiratory. Exam: 10:55 Constitutional: This is a well developed, well nourished patient who is awake, alert, seth and in no acute distress. Head/Face: Normocephalic, atraumatic. Eyes: Pupils equal round and reactive to light, extra-ocular motions intact. Lids and lashes normal. Conjunctiva and sclera are non-icteric and not injected. Cornea within normal limits. Periorbital areas with no swelling, redness, or edema. ENT: Nares patent. No nasal discharge, no septal abnormalities noted. Tympanic membranes are normal and external auditory canals are clear. Oropharynx with no redness, swelling, or masses, exudates, or evidence of obstruction, uvula midline. Mucous membranes moist. Neck: Trachea midline, no thyromegaly or masses palpated, and no cervical lymphadenopathy. Supple, full range of motion without nuchal rigidity, or vertebral point tenderness. No Meningismus. Chest/axilla: Normal chest wall appearance and motion. Nontender with no deformity. No lesions are appreciated. Cardiovascular: Regular rate and rhythm with a normal S1 and S2. No gallops, murmurs, or rubs. Normal PMI, no JVD. No pulse deficits. Abdomen/GI: Soft, non-tender, with normal bowel sounds. No distension or tympany. No guarding or rebound. No evidence of tenderness throughout. Back: No spinal tenderness. No costovertebral tenderness. Full range of motion. Female : Normal external genitalia. Skin: Warm, dry with normal turgor. Normal color with no rashes, no lesions, and no evidence of cellulitis. MS/ Extremity: Pulses equal, no cyanosis. Neurovascular intact. Full, normal range of motion. Neuro: Awake and alert, GCS 15, oriented to person, place, time, and situation. Cranial nerves II-XII grossly intact. Motor strength 5/5 in all extremities. Sensory grossly intact. Cerebellar exam normal. Normal gait. Psych: Awake, alert, with orientation to person, place and time. Behavior, mood, and affect are within normal limits. 10:55 Respiratory: moderate respiratory distress is noted, Respirations: labored breathing, that is moderate, Breath sounds: decreased breath sounds, rhonchi, + upper airway congestion. wheezing: inspiratory expiratory Respiratory rate: 24 11:05 Musculoskeletal/extremity: DVT Exam: No signs of deep vein thrombosis. no pain, no seth swelling, no tenderness, negative Homans' sign noted on exam, no appreciated bluish discoloration, no erythema, no increased warmth. Vital Signs: 10:42 BP 199 / 121; Pulse 104; Resp 40; Temp 97.6; Pulse Ox 100% on Nebulizer Mask; sv 11:28 Pulse 104; Resp 24; Pulse Ox 97% on 45% BiPAP; sv 11:30 BP 187 / 103; sv 12:15 BP 169 / 79; Pulse 93; Resp 14; Pulse Ox 99% on 45% BiPAP; sv 12:58 BP 149 / 85; Pulse 97; Resp 14; Pulse Ox 100% on 45% BiPAP; sv 13:45 BP 159 / 94; Pulse 100; Resp 19; Pulse Ox 99% on 45% BiPAP; sv MDM: 10:52 Patient medically screened. [facility] 10:57 Data reviewed: vital signs, nurses notes, lab test result(s), EKG, radiologic studies, [facility] CT scan, plain films. 10/18 10:54 Order name: Basic Metabolic Panel; Complete Time: 12:39 seth 10/18 10:54 Order name: CBC with Diff; Complete Time: 12:39 seth 10/18 10:54 Order name: Ckmb; Complete Time: 12:39 seth 10/18 10:54 Order name: CPK; Complete Time: 12:39 [facility] 10/18 10:54 Order name: LFT's; Complete Time: 12:39 [facility] 10/18 10:54 Order name: Magnesium; Complete Time: 12:39 [facility] 10/18 10:54 Order name: NT PRO-BNP; Complete Time: 12:39 [facility] 10/18 10:54 Order name: PT-INR; Complete Time: 12:39 [facility] 10/18 10:54 Order name: Ptt, Activated; Complete Time: 12:39 [facility] 10/18 10:54 Order name: Troponin (emerg Dept Use Only); Complete Time: 12:39 [facility] 10/18 10:54 Order name: Blood Culture Adult (2) [facility] 10/18 10:54 Order name: Urine Culture [facility] 10/18 10:54 Order name: TSH; Complete Time: 12:39 [facility] 10/18 12:21 Order name: Urine Dipstick--Ancillary (enter results) [facility] 10/18 10:54 Order name: XRAY Chest (1 view); Complete Time: 12:39 [facility] 10/18 11:05 Order name: BIPAP [facility] 10/18 12:51 Order name: Basic Metabolic Panel [facility] 10/18 12:51 Order name: Basic Metabolic Panel [facility] 10/18 12:51 Order name: NT PRO-BNP [facility] 10/18 12:51 Order name: NT PRO-BNP [facility] 10/18 12:51 Order name: Troponin I [facility] 10/18 12:51 Order name: Troponin I [facility] 10/18 12:53 Order name: CBC with Automated Diff [facility] 10/18 12:53 Order name: CBC with Automated Diff [facility] 10/18 12:53 Order name: Troponin I [facility] 10/18 12:53 Order name: Chest Single View [facility] 10/18 12:53 Order name: Chest Single View [facility] 10/18 10:54 Order name: EKG; Complete Time: 10:55 [facility] 10/18 10:54 Order name: Cardiac monitoring; Complete Time: 11:44 [facility] 10/18 10:54 Order name: EKG - Nurse/Tech; Complete Time: 11:44 [facility] 10/18 10:54 Order name: IV Saline Lock; Complete Time: 11:44 [facility] 10/18 10:54 Order name: Labs collected and sent; Complete Time: 11:44 [facility] 10/18 10:54 Order name: O2 Per Protocol; Complete Time: 11:44 [facility] 10/18 10:54 Order name: O2 Sat Monitoring; Complete Time: 11:44 [facility] 10/18 10:54 Order name: Urine Dipstick-Ancillary (obtain specimen); Complete Time: 11:45 [facility] 10/18 12:53 Order name: Regular EDMS 10/18 12:53 Order name: EKG Electrocardiogram EDMS 10/18 12:53 Order name: EKG Electrocardiogram EDMS Administered Medications: 11:00 Drug: Albuterol - atroVENT (3:1) (2.5 mg - 0.5 mg) 3 ml Route: Nebulizer; sv 11:43 Follow up: Response: No adverse reaction sv 11:11 Drug: NS 0.9% 1000 ml Route: IV; Rate: 75 ml/hr; Site: left antecubital; sv 14:15 Follow up: Response: No adverse reaction; IV Status: Infusion continued upon admission sv 11:11 Drug: SOLU-Medrol 125 mg Route: IVP; Site: left antecubital; sv 11:43 Follow up: Response: No adverse reaction sv 11:13 Drug: Rocephin - (cefTRIAXone) 1 grams Route: IVPB; Infused Over: 30 mins; Site: left sv antecubital; 11:17 Follow up: Response: No adverse reaction; IV Status: Completed infusion; IV Intake: 10mlsv 11:15 Drug: Zithromax 500 mg Route: IVPB; Infused Over: 1 hrs; Site: left antecubital; sv 12:45 CANCELLED (Duplicate Order): Norvasc 10 mg PO once seth 12:45 CANCELLED (Duplicate Order): Enalaprilat 2.5 mg IV at per protocol once; (slow IV push) seth 14:11 Drug: Norvasc 5 mg Route: PO; sv 14:15 Follow up: Response: No adverse reaction sv Disposition: 10/18/17 12:44 Hospitalization ordered by Slade Saldana for Inpatient Admission. Preliminary diagnosis are Dyspnea, Chronic obstructive pulmonary disease with (acute) exacerbation, Hypoxemia, Essential (primary) hypertension. - Bed requested for Telemetry/MedSurg (Inpatient). - Status is Inpatient Admission. sv - Condition is Fair. - Problem is new. - Symptoms have improved. UTI on Admission? No Signatures: Dispatcher [employer] EDMS Swati Otto Stephanie, RN RN sv Donato Martinez MD MD cha Corrections: (The following items were deleted from the chart) 12:45 12:43 Norvasc 10 mg PO once ordered. seth seth 12:45 12:43 Enalaprilat 2.5 mg IV at per protocol once; (slow IV push) ordered. seth seth 13:31 12:44 Hospitalization Ordered by Slade Saldana MD for Inpatient Admission. Preliminary bd diagnosis is Dyspnea; Chronic obstructive pulmonary disease with (acute) exacerbation; Hypoxemia; Essential (primary) hypertension. Bed requested for Telemetry/MedSurg (Inpatient). Status is Inpatient Admission. Condition is Fair. Problem is new. Symptoms have improved. UTI on Admission? No. seth 14:30 13:31 10/18/2017 12:44 Hospitalization Ordered by Slade Saldana MD for Inpatient sv Admission. Preliminary diagnosis is Dyspnea; Chronic obstructive pulmonary disease with (acute) exacerbation; Hypoxemia; Essential (primary) hypertension. Bed requested for Telemetry/MedSurg (Inpatient). Status is Inpatient Admission. Condition is Fair. Problem is new. Symptoms have improved. UTI on Admission? No. bd
[2017-10-18] MEDS ORDERED: IPRATROPIUM BROM 0.5MG/2.5ML NEB PRN (12:48)
[2017-10-18] MEDS ORDERED: ONDANSETRON 4 MG/2 ML VIAL IV PRN (12:48)
[2017-10-18] MEDS ORDERED: NA CHLORIDE 0.9% 1,000 ML IV SCH (13:00)
[2017-10-18 13:13] LABS: Urine Blood 1+ (NEG); Urine Glucose NEGATIVE (NEG); Urine Protein 2+ (NEG)
--- NOTE | 2017-10-18 14:01 | EKG ---
Test Date: 2017-10-18 Test Time: 10:42:38 Chemical Blender: HOLLIS MEASUREMENT RESULTS: Intervals: Rate: 104 OK: 172 QRSD: 78 QT: 356 QTc: 468 [place]: P: 67 OK: 172 QRS: 29 T: 53 INTERPRETIVE STATEMENTS: Sinus tachycardia Low voltage QRS Borderline ECG Compared to ECG 09/20/2017 17:28:14 Low QRS voltage now present Sinus rhythm no longer present Myocardial infarct finding no longer present Electronically Signed On 10-18-17 14:00:21 CDT by Paul Hoffman
[2017-10-18] MEDS ORDERED: AMLODIPINE 5 MG TAB ONE ×2 (14:05→14:11)
[2017-10-18] MEDS: ALBUTEROL 2.5 MG/3 ML NEB SOL NEB PRN ×2 (15:00→19:36)
[2017-10-18 16:29] VITALS: BMI 33.4
[2017-10-18] MEDS: ACETAMINOPHEN 500 MG TAB PO PRN (17:05)
[2017-10-18] MEDS: METHYLPREDNISOLONE 40 MG INJ IV SCH (17:08)
[2017-10-18] MEDS ORDERED: METOPROLOL TAR 25 MG TAB PO SCH (18:00)
[2017-10-18] MEDS ORDERED: PNEUMOCOCCAL VACCINE 0.5 ML IMVAC ONE (18:00)
--- NOTE | 2017-10-18 18:12 | P.HP ---
Certification for Inpatient Patient admitted to: Inpatient With expected LOS: >2 Midnights Practitioner: I am a practitioner with admitting privileges, knowledge of patient current condition, hospital course, and medical plan of care. Services: Services provided to patient in accordance with Admission requirements found in Title 42 Section 412.3 of the Code of Federal Regulations Patient History Date of Service: 10/18/17 Reason for admission: DYSPNEA History of Present Illness: REFUGIO HAS SEVERE COPD, FRIENDS WHO SMOKE AND ALSO GOT EXPOSED TO DUST. SHE STARTED TO HAVE WORSENING DYSPNEA OVER 3 DAYS. SHE HAS NO SPUTUM BUT VERY DYSPNIC AT REST Allergies levofloxacin [From Levaquin] Adverse Reaction (Verified 12/04/16 22:04) Nausea/Vomiting Home Medications: Diazepam [Valium] 2.5 mg PO BEDTIME PRN 09/20/17 Methimazole [Tapazole] 10 mg PO TID 09/20/17 Metoprolol Tartrate [Lopressor] 25 mg PO BID 09/20/17 Mirtazapine [Remeron*] 15 mg PO BEDTIME 09/20/17 Spironolact/Hydrochlorothiazid [Aldactazide 25-25 Tablet] 1 each PO DAILY Venlafaxine HCl [Venlafaxine HCl ER] 150 mg PO DAILY 09/20/17 Amlodipine [Norvasc*] 5 mg PO DAILY #30 tab 09/24/17 Albuterol Sulfate [Proair Hfa] 2 puff IN QID 10/18/17 Codeine/APAP [Tylenol #3*] 1 tab PO BIDP PRN 10/18/17 Colestipol HCl [Colestid] 1 gm PO BID 10/18/17 Umeclidinium Brm/Vilanterol Tr [Anoro Ellipta 62.5-25 Mcg INH] 1 each IH DAILY 10/18/17 - Past Medical/Surgical History Has patient received pneumonia vaccine in the past: No Diabetic: No -: HTN -: [place] -: COPD -: childhood asthma -: dysphagia -: tonsilectomy @ 8 yrs old - Family History Father -: Kidney disease Notes: Bryte's disease Mother -: Stroke Sister -: Hypertension Brother -: Cancer Notes: cancer of esophagus and colon cancer - Social History Smoking Status: Former smoker Alcohol use: No CD- Drugs: No Caffeine use: Yes Place of Residence: Home Review of Systems 10-point ROS is otherwise unremarkable General: Weakness, Malaise Respiratory: Cough, Shortness of Breath Physical Examination - Vital Signs Temperature: 97.6 F Blood Pressure: 155/91 Pulse: 120 Respirations: 26 Pulse Ox (%): 97 - Physical Exam General: Alert, Moderate distress HEENT: Atraumatic, PERRLA, Mucous membr. moist/pink, EOMI, Sclerae nonicteric Neck: Supple, 2+ carotid pulse no bruit, No LAD, Without JVD or thyroid abnormality Respiratory: Diminished, Expiratory wheezes, Inspiratory wheezes, Rhonchi/ gurgles Cardiovascular: Regular rate/rhythm, Normal S1 S2 Gastrointestinal: Normal bowel sounds, No tenderness Musculoskeletal: No tenderness Integumentary: No rashes Neurological: Normal gait, Normal speech, Normal strength at 5/5 x4 extr, Normal tone, Normal affect Lymphatics: No axilla or inguinal lymphadenopathy - Studies Laboratory Data (last 24 hrs) 10/18/17 10:55: PT 12.5, INR 1.06, APTT 32.6 10/18/17 10:55: WBC 12.9 H, Hgb 15.2 H, Hct 45.8 H, Plt Count 336 10/18/17 10:55: Sodium 137, Potassium 4.3, BUN 18, Creatinine 1.10, Glucose 126 H, Magnesium 2.3, Total Bilirubin 0.4, AST 19, ALT 18, Alkaline Phosphatase 86 Assessment and Plan - Problems (Diagnosis) (1) COPD exacerbation Onset Date: 09/21/17 Current Visit: No Status: Acute Plan: NEBS, BROANA STEROIDS IV ZITHROMAX IV. STABLE WITH GUARDED PROGNOSIS. (2) Diarrhea Current Visit: No Status: Chronic Plan: QUEVEDO IN PAST DONE A FEW TIMES. 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
[2017-10-18] MEDS ORDERED: LOPERAMIDE HCL 2 MG CAPSULE PO PRN (18:13)
[2017-10-18] MEDS ORDERED: CODEINE 30MG/APAP 300MG TAB PO PRN (18:16)
[2017-10-18] MEDS: NA CHLORIDE 0.9% 1,000 ML IV SCH (18:21)
[2017-10-18] MEDS: ARFORMOTEROL TARTRATE 15 MCG/2 ML VIAL.NEB NEB SCH (19:36)
[2017-10-18] MEDS: IPRATROPIUM BROM 0.5MG/2.5ML NEB PRN (19:36)
[2017-10-18] MEDS: COLESTIPOL 1 GM TAB PO SCH ×2 (21:00→22:59)
[2017-10-18] MEDS ORDERED: COLESTIPOL HCL 1 GM PO SCH (21:00)
[2017-10-18] MEDS: METOPROLOL TAR 25 MG TAB PO SCH (21:00)
[2017-10-18] MEDS: MIRTAZAPINE 15 MG TAB PO SCH (21:00)
[2017-10-18] MEDS ORDERED: METHIMAZOLE 10 MG PO SCH (21:00)
[2017-10-18] MEDS: DIAZEPAM 5 MG TABLET PO PRN (23:03)
[2017-10-19] MEDS: METHYLPREDNISOLONE 40 MG INJ IV SCH ×3 (01:43→16:29)
[2017-10-19 05:59] LABS: Absolute Lymphocytes (CBC) 1.3 K/uL (0.7-4.9); Absolute Monocytes 0.3 K/uL (0.1-1.3); Absolute Neutrophil 14.1 K/uL (1.8-8.0); Basophils % 0.2 % (0-1.3); Hematocrit 39.8 % (36.0-45.0); Lymphocytes % 8.1 % (15.3-44.8); MCH 30.5 pg (27.0-35.0); MCV 90.5 fL (80-100); MPV 8.8 fL (7.6-11.3); Monocytes % 1.7 % (3.3-12.3)
[2017-10-19 06:02] LABS: Potassium 4.2 mmol/L (3.5-5.1)
[2017-10-19 07:26] LABS: Blood Morphology Comment NOT SEEN (NOT SEEN); Platelet Estimate ADEQ; Urine White Blood Cell Casts OK
[2017-10-19] MEDS: ARFORMOTEROL TARTRATE 15 MCG/2 ML VIAL.NEB NEB SCH ×2 (08:12→19:15)
[2017-10-19] MEDS: hydroCHLOROthiazide 25 MG TAB PO SCH (08:20)
[2017-10-19] MEDS: ASPIRIN EC 81 MG TAB PO SCH (08:21)
[2017-10-19] MEDS: VENLAFAXINE HCL XR 75 MG CAP PO SCH (08:21)
[2017-10-19] MEDS: COLESTIPOL 1 GM TAB PO SCH ×2 (08:21→22:13)
[2017-10-19] MEDS: HOME MED 1 EA UNK (Umeclidinium Brm/Vilanterol Tr [Anoro Ellipta 62.5-25 Mcg Inh] 1 EACH) IH SCH (08:31)
[2017-10-19] MEDS: SPIRONOLACTONE 25 MG TABLET PO SCH (08:33)
[2017-10-19] MEDS: METOPROLOL TAR 25 MG TAB PO SCH ×2 (08:33→22:12)
[2017-10-19] MEDS: AMLODIPINE 5 MG TAB PO SCH (08:34)
[2017-10-19] MEDS: AZITHROMYCIN IV 500 MG in NA CHLORIDE 0.9% 250 ML IVPB SCH (08:37)
[2017-10-19] MEDS ORDERED: HYDROCHLOROTHIAZID PO SCH (09:00)
[2017-10-19] MEDS ORDERED: HOME MED 1 EA UNK (Venlafaxine Hcl [Venlafaxine Hcl Er] 150 MG) PO SCH (09:00)
[2017-10-19] MEDS ORDERED: AMLODIPINE 5 MG TAB PO SCH (09:00)
[2017-10-19] MEDS ORDERED: SPIRONOLACT PO SCH (09:00)
[2017-10-19] MEDS: ACETAMINOPHEN 500 MG TAB PO PRN (13:48)
[2017-10-19] MEDS: ALBUTEROL 2.5 MG/3 ML NEB SOL NEB PRN (13:54)
[2017-10-19] MEDS: IPRATROPIUM BROM 0.5MG/2.5ML NEB PRN (13:55)
--- NOTE | 2017-10-19 14:47 | EKG ---
Test Date: 2017-10-19 Test Time: 07:48:39 Hip Hop Artist: HOLLIS MEASUREMENT RESULTS: Intervals: Rate: 110 CA: 164 QRSD: 80 QT: 346 QTc: 468 [place]: P: 70 CA: 164 QRS: 27 T: 22 INTERPRETIVE STATEMENTS: Sinus tachycardia Otherwise normal ECG Compared to ECG 10/18/2017 10:42:38 No significant changes Electronically Signed On 10-19-17 14:45:15 CDT by Rashad Christopher
--- NOTE | 2017-10-19 17:55 | P.PN ---
Subjective Date of Service: 10/19/17 Chief Complaint: DYSPNEA Subjective: Improving (SHE HAS IMPROVED COMPARED TO BEFORE.) Review of Systems 10-point ROS is otherwise unremarkable General: Weakness, Malaise Respiratory: Shortness of Breath Physical Examination - Vital Signs Temperature: 98 F Blood Pressure: 139/74 Pulse: 112 Respirations: 20 Pulse Ox (%): 95 - Physical Exam General: Alert, Mild distress, Moderate distress HEENT: Atraumatic, PERRLA, EOMI Neck: Supple, JVD not distended Respiratory: Diminished Cardiovascular: Regular rate/rhythm, Normal S1 S2 Gastrointestinal: Normal bowel sounds, No tenderness Musculoskeletal: No tenderness Integumentary: No rashes Neurological: Normal speech, Normal tone, Normal affect Lymphatics: No axilla or inguinal lymphadenopathy - Studies Medications List Reviewed: Yes Assessment And Plan - Current Problems (Diagnosis) (1) COPD exacerbation Onset Date: 09/21/17 Current Visit: No Status: Acute Plan: NEBS, BROANA STEROIDS IV ZITHROMAX IV. STABLE WITH GUARDED PROGNOSIS. RESUME CARE NO CHANGES IN MEDS LUNGS ARE CLEAR NOW BUT STILL DYSPNEIC AT REST (2) Diarrhea Current Visit: No Status: Chronic Plan: QUEVEDO IN PAST DONE A FEW TIMES. NO OBVIOUS CUASE STAYS ANXIOUS TREAT IBS Qualifiers: Diarrhea type: functional diarrhea Qualified Code(s): K59.1 - Functional diarrhea
[2017-10-19] MEDS: MIRTAZAPINE 15 MG TAB PO SCH (22:13)
[2017-10-19] MEDS: DIAZEPAM 5 MG TABLET PO PRN (22:14)
[2017-10-20] MEDS: METHYLPREDNISOLONE 40 MG INJ IV SCH ×3 (00:48→17:37)
[2017-10-20] MEDS: NA CHLORIDE 0.9% 1,000 ML IV SCH (06:02)
[2017-10-20] MEDS: ACETAMINOPHEN 500 MG TAB PO PRN (07:47)
[2017-10-20] MEDS: AMLODIPINE 5 MG TAB PO SCH (07:48)
[2017-10-20] MEDS: hydroCHLOROthiazide 25 MG TAB PO SCH (07:48)
[2017-10-20] MEDS: VENLAFAXINE HCL XR 75 MG CAP PO SCH (07:50)
[2017-10-20] MEDS: ASPIRIN EC 81 MG TAB PO SCH (07:51)
[2017-10-20] MEDS: METOPROLOL TAR 25 MG TAB PO SCH ×2 (07:51→20:22)
[2017-10-20] MEDS: SPIRONOLACTONE 25 MG TABLET PO SCH (07:51)
[2017-10-20] MEDS: COLESTIPOL 1 GM TAB PO SCH ×2 (07:52→20:23)
[2017-10-20] MEDS: HOME MED 1 EA UNK (Umeclidinium Brm/Vilanterol Tr [Anoro Ellipta 62.5-25 Mcg Inh] 1 EACH) IH SCH (07:53)
[2017-10-20] MEDS: ARFORMOTEROL TARTRATE 15 MCG/2 ML VIAL.NEB NEB SCH ×2 (07:57→19:28)
[2017-10-20] MEDS: LOSARTAN/HCTZ 50-12.5 PO SCH (08:02)
[2017-10-20] MEDS: AZITHROMYCIN IV 500 MG in NA CHLORIDE 0.9% 250 ML IVPB SCH (08:29)
--- NOTE | 2017-10-20 11:54 | P.PN ---
Subjective Date of Service: 10/20/17 Chief Complaint: DYSPNEA Subjective: Improving (BETTER THAN TWO DAYS AGO.) Review of Systems 10-point ROS is otherwise unremarkable General: Weakness, Malaise Respiratory: Cough, Shortness of Breath Physical Examination - Vital Signs Temperature: 99.0 F Blood Pressure: 163/75 Pulse: 95 Respirations: 18 Pulse Ox (%): 98 - Physical Exam General: Alert HEENT: Atraumatic, PERRLA, EOMI Neck: Supple, JVD not distended Respiratory: Diminished, Rhonchi/gurgles Cardiovascular: Regular rate/rhythm, Normal S1 S2 Gastrointestinal: Normal bowel sounds, No tenderness Musculoskeletal: No tenderness Integumentary: No rashes Neurological: Normal speech, Normal tone, Normal affect Lymphatics: No axilla or inguinal lymphadenopathy - Studies Microbiology Data (last 24 hrs): 10/18/17 11:36 Clean Catch Urine [place] Count - Final <10,000 CFU/ML. 10/18/17 11:36 Clean Catch Urine - Final Medications List Reviewed: Yes Assessment And Plan - Current Problems (Diagnosis) (1) COPD exacerbation Onset Date: 09/21/17 Current Visit: No Status: Acute Plan: NEBS, BROANA STEROIDS IV ZITHROMAX IV. STABLE WITH GUARDED PROGNOSIS. RESUME CARE NO CHANGES IN MEDS LUNGS ARE CLEAR NOW BUT STILL DYSPNEIC AT REST IMPROVING POSSIBLE HOME ON WEDNESDAY. RESUME MEDS. (2) Diarrhea Current Visit: No Status: Chronic Plan: QUEVEDO IN PAST DONE A FEW TIMES. NO OBVIOUS CUASE STAYS ANXIOUS TREAT IBS Qualifiers: Diarrhea type: functional diarrhea Qualified Code(s): K59.1 - Functional diarrhea
[2017-10-20] MEDS: MIRTAZAPINE 15 MG TAB PO SCH (20:24)
[2017-10-20] MEDS: DIAZEPAM 5 MG TABLET PO PRN (20:31)
[2017-10-21] MEDS: METHYLPREDNISOLONE 40 MG INJ IV SCH ×2 (00:05→08:42)
[2017-10-21] MEDS: AMLODIPINE 5 MG TAB PO SCH (05:17)
[2017-10-21] MEDS: ARFORMOTEROL TARTRATE 15 MCG/2 ML VIAL.NEB NEB SCH ×2 (08:05→20:42)
[2017-10-21] MEDS: IPRATROPIUM BROM 0.5MG/2.5ML NEB PRN ×2 (08:09→20:42)
[2017-10-21] MEDS: ALBUTEROL 2.5 MG/3 ML NEB SOL NEB PRN ×2 (08:09→20:42)
[2017-10-21] MEDS: VENLAFAXINE HCL XR 75 MG CAP PO SCH (08:41)
[2017-10-21] MEDS: LOSARTAN/HCTZ 50-12.5 PO SCH (08:42)
[2017-10-21] MEDS: hydroCHLOROthiazide 25 MG TAB PO SCH (08:42)
[2017-10-21] MEDS: METOPROLOL TAR 25 MG TAB PO SCH ×2 (08:43→21:46)
[2017-10-21] MEDS: ASPIRIN EC 81 MG TAB PO SCH (08:43)
[2017-10-21] MEDS: SPIRONOLACTONE 25 MG TABLET PO SCH (08:43)
[2017-10-21] MEDS: COLESTIPOL 1 GM TAB PO SCH ×2 (08:44→21:46)
[2017-10-21] MEDS: AZITHROMYCIN IV 500 MG in NA CHLORIDE 0.9% 250 ML IVPB SCH (08:45)
[2017-10-21] MEDS: HOME MED 1 EA UNK (Umeclidinium Brm/Vilanterol Tr [Anoro Ellipta 62.5-25 Mcg Inh] 1 EACH) IH SCH (08:45)
[2017-10-21] MEDS: cloNIDine HCl 0.1 MG TAB PO PRN (18:56)
[2017-10-21] MEDS: HYDRALAZINE HCL 25 MG TABLET PO SCH (21:48)
[2017-10-21] MEDS: MIRTAZAPINE 15 MG TAB PO SCH (21:49)
[2017-10-21] MEDS: DIAZEPAM 5 MG TABLET PO PRN (21:54)
[2017-10-22] MEDS: cloNIDine HCl 0.1 MG TAB PO PRN (05:10)
[2017-10-22 07:09] LABS: Absolute Lymphocytes (CBC) 2.6 K/uL (0.7-4.9); Absolute Monocytes 1.4 K/uL (0.1-1.3); Absolute Neutrophil 12.8 K/uL (1.8-8.0); Basophils % 0.1 % (0-1.3); Eosinophils % 0.1 % (0-4.4); Hematocrit 39.4 % (36.0-45.0); Lymphocytes % 15.5 % (15.3-44.8); MCV 89.2 fL (80-100); MPV 8.8 fL (7.6-11.3); Monocytes % 8.3 % (3.3-12.3); RBC Red Blood Cell Count 4.41 M/uL (3.86-4.86)
[2017-10-22] MEDS: ARFORMOTEROL TARTRATE 15 MCG/2 ML VIAL.NEB NEB SCH (07:47)
[2017-10-22] MEDS: AMLODIPINE 5 MG TAB PO SCH (08:23)
[2017-10-22] MEDS: VENLAFAXINE HCL XR 75 MG CAP PO SCH (08:24)
[2017-10-22] MEDS: LOSARTAN/HCTZ 50-12.5 PO SCH (08:25)
[2017-10-22] MEDS: METOPROLOL TAR 25 MG TAB PO SCH (08:25)
[2017-10-22] MEDS: HYDRALAZINE HCL 25 MG TABLET PO SCH (08:25)
[2017-10-22] MEDS: ASPIRIN EC 81 MG TAB PO SCH (08:26)
[2017-10-22] MEDS: SPIRONOLACTONE 25 MG TABLET PO SCH (08:27)
[2017-10-22] MEDS: hydroCHLOROthiazide 25 MG TAB PO SCH (08:27)
[2017-10-22] MEDS: COLESTIPOL 1 GM TAB PO SCH (08:28)
[2017-10-22] MEDS: HOME MED 1 EA UNK (Umeclidinium Brm/Vilanterol Tr [Anoro Ellipta 62.5-25 Mcg Inh] 1 EACH) IH SCH (08:33)
[2017-10-22] MEDS ORDERED: predniSONE 20 MG TAB PO SCH (09:00)
[2017-10-22 10:29] VITALS: O2SAT 94
[2017-10-22 12:33] VITALS: BP 170/85; TEMP 97.9
--- NOTE | 2017-10-22 17:49 | P.PN ---
Subjective Date of Service: 10/22/17 Chief Complaint: DYSPNEA IS BETTER. Subjective: Improving BP IS HIGH, ANXIOUS CHRONIC. Review of Systems 10-point ROS is otherwise unremarkable General: Weakness, Malaise Respiratory: Shortness of Breath Physical Examination - Vital Signs Temperature: 97.9 F Blood Pressure: 170/85 Pulse: 81 Respirations: 20 Pulse Ox (%): 93 - Physical Exam General: Alert, Mild distress HEENT: Atraumatic, PERRLA, EOMI Neck: Supple, JVD not distended Respiratory: Diminished Cardiovascular: Regular rate/rhythm, Normal S1 S2 Gastrointestinal: Normal bowel sounds, No tenderness Musculoskeletal: No tenderness Integumentary: No rashes Neurological: Normal speech, Normal tone, Normal affect Lymphatics: No axilla or inguinal lymphadenopathy - Studies Medications List Reviewed: Yes Assessment And Plan - Current Problems (Diagnosis) (1) COPD exacerbation Onset Date: 09/21/17 Status: Acute Plan: NEBS, BROANA STEROIDS IV ZITHROMAX IV. STABLE WITH GUARDED PROGNOSIS. RESUME CARE NO CHANGES IN MEDS LUNGS ARE CLEAR NOW BUT STILL DYSPNEIC AT REST IMPROVING POSSIBLE HOME ON WEDNESDAY. RESUME MEDS. NO CHANGES. I V CAME OUT , SHE WANTED TO KEEP IT OUT. (2) Diarrhea Status: Chronic Plan: QUEVEDO IN PAST DONE A FEW TIMES. NO OBVIOUS CUASE STAYS ANXIOUS TREAT IBS Qualifiers: Diarrhea type: functional diarrhea Qualified Code(s): K59.1 - Functional diarrhea (3) Uncontrolled hypertension Status: Chronic Plan: ADDED HYDRALAZINE WILL FU OUTPATIENT.
--- NOTE | 2017-10-22 17:50 | P.DS ---
Admission Date: 10/18/17 Discharge Date: 10/22/17 Disposition: ROUTINE DISCHARGE Discharge Condition: FAIR Reason for Admission: DYSPNEA IS BETTER. - Problems (1) COPD exacerbation Onset Date: 09/21/17 Status: Acute (2) Diarrhea Status: Chronic Qualifiers: Diarrhea type: functional diarrhea Qualified Code(s): K59.1 - Functional diarrhea (3) Uncontrolled hypertension Status: Chronic Brief History of Present Illness: REFUGIO HAS SEVERE COPD, FRIENDS WHO SMOKE AND ALSO GOT EXPOSED TO DUST. SHE STARTED TO HAVE WORSENING DYSPNEA OVER 3 DAYS. SHE HAS NO SPUTUM BUT VERY DYSPNIC AT REST REFUGIO HAS DONE WELL. HER COPD IS A LOT BETTER. SHE WILL CONTINUE ORAL STEROIDS AT HOME. ZPAK FOR FU. BP MEDS ADDED. FU IN ONE WEEK. Vital Signs/Physical Exam: Temp Pulse Resp BP Pulse Ox 97.9 F 81 20 170/85 H 93 10/22/17 17:49 10/22/17 17:49 10/22/17 17:49 10/22/17 17:49 10/22/17 17:49 Laboratory Data at Discharge: WBC 16.9 K/uL (4.3-10.9) H 10/22/17 06:49 Hgb 13.2 g/dL (12.0-15.0) 10/22/17 06:49 Hct 39.4 % (36.0-45.0) 10/22/17 06:49 Plt Count 278 K/uL (152-406) 10/22/17 06:49 PT 12.5 SECONDS (9.5-12.5) 10/18/17 10:55 INR 1.06 10/18/17 10:55 APTT 32.6 SECONDS (24.3-36.9) 10/18/17 10:55 Sodium 139 mmol/L (136-145) 10/22/17 06:49 Potassium 4.0 mmol/L (3.5-5.1) 10/22/17 06:49 BUN 54 mg/dL (7-18) H D 10/22/17 06:49 Creatinine 1.30 mg/dL (0.55-1.3) 10/22/17 06:49 Glucose 95 mg/dL (74-106) 10/22/17 06:49 Magnesium 2.3 mg/dL (1.8-2.4) 10/18/17 10:55 Total Bilirubin 0.4 mg/dL (0.2-1.0) 10/18/17 10:55 AST 19 U/L (15-37) 10/18/17 10:55 ALT 18 U/L (12-78) 10/18/17 10:55 Alkaline Phosphatase 86 U/L (45-117) 10/18/17 10:55 Troponin I 0.02 ng/mL (0.0-0.045) 10/18/17 19:29 Home Medications: Diazepam [Valium] 2.5 mg PO BEDTIME PRN 09/20/17 Methimazole [Tapazole] 10 mg PO TID 09/20/17 Metoprolol Tartrate [Lopressor] 25 mg PO BID 09/20/17 Mirtazapine [Remeron*] 15 mg PO BEDTIME 09/20/17 Spironolact/Hydrochlorothiazid [Aldactazide 25-25 Tablet] 1 each PO DAILY Venlafaxine HCl [Venlafaxine HCl ER] 150 mg PO DAILY 09/20/17 Amlodipine [Norvasc*] 5 mg PO DAILY #30 tab 09/24/17 Albuterol Sulfate [Proair Hfa] 2 puff IN QID 10/18/17 Codeine/APAP [Tylenol #3*] 1 tab PO BIDP PRN 10/18/17 Colestipol HCl [Colestid] 1 gm PO BID 10/18/17 Umeclidinium Brm/Vilanterol Tr [Anoro Ellipta 62.5-25 Mcg INH] 1 each IH DAILY 10/18/17 Azithromycin Tab [Zithromax*] 250 mg PO ZPAK #1 aureliano 10/22/17 predniSONE [Deltasone] 20 mg PO DAILY #30 tab 10/22/17 New Medications: Azithromycin Tab [Zithromax*] 250 mg PO ZPAK #1 aureliano predniSONE [Deltasone] 20 mg PO DAILY #30 tab Followup: Slade Saldana MD [Primary Care Provider] - 1-2 Weeks (Call to schedule an appointment)
== END 2017-10-22 13:55 | disposition home or self-care (01) | DRG 192 ==
LOC: ER 10:39 → ERHOLD 12:46 → 4TH 14:07
PROVIDERS: ADMIT Internal Medicine; ATTEND Internal Medicine
PROC: 5A09357 Assistance with Respiratory Ventilation, Less than 24 Consecutive Hours, Continuous Positive Airway Pressure (ICD-10-PCS; principal; 2017-10-18)
DX: J44.1 Chronic obstructive pulmonary disease with (acute) exacerbation (principal); K59.1 Functional diarrhea; R09.02 Hypoxemia; I10 Essential (primary) hypertension; Z99.81 Dependence on supplemental oxygen; Z88.1 Allergy status to other antibiotic agents; I25.2 Old myocardial infarction; Z87.891 Personal history of nicotine dependence
CPT/HCPCS: 36415; 51702; 71045; 80048; 80076; 81003; 82550; 82553; 83605; 83735; 83880; 84443; 84484; 85025; 85610; 85730; 87040; 87045; 87046; 87086; 87088; 87493; 89055; 93005; 94640; 94660; 96361; 96374; 96375; 99291; 99292; J0456; J0696; J2920; J2930; J7030; J7512; J7605

== ENCOUNTER 2018-01-21 13:14 | Inpatient (IN) | payer OTHER, MEDICARE ==
--- OUTSIDE RECORDS SUMMARY | 2018-01-21 13:16 | XMS REPORT | Clinical Summary ---
:1935 Author Organization [facility] Address [address] [place] [address] Care Team Providers Name Role Phone Sharpdavid Primary Care Provider Unavailable Allergies Active Allergy Reactions Severity Noted Date Comments Levofloxacin Nausea And Vomiting 11/06/2016 Medications Medication Sig Dispensed Refills Start Date End Date Status albuterol HFA Inhale 2 puffs by 0 Active (PROAIR HFA) 90 mouth via inhaler mcg/actuation every 6 (six) inhaler hours as needed for Wheezing. HYDROcodone-acetamin Take 1 tablet by 0 Active ophen (NORCO 5-325) mouth 2 (two) 5-325 mg per tablet times daily as needed for Pain. diazePAM (VALIUM) 5 Take 5 mg by 0 Active MG tablet mouth 2 (two) times daily as needed for Anxiety. mirtazapine Take 15 mg by 0 Active (REMERON) 15 MG mouth nightly. tablet venlafaxine Take 75 mg by 0 Active (EFFEXOR-XR) 75 MG mouth daily. 24 hr capsule umeclidinium-vilante Inhale 1 puff by 0 Active rol (ANORO ELLIPTA) mouth via inhaler 62.5-25 daily. mcg/actuation DsDv predniSONE Take 5 mg by 0 Active (DELTASONE) 5 MG mouth daily. tablet clotrimazole-betamet Apply topically 2 0 Active hasone (LOTRISONE) (two) times 1-0.05 % cream daily. methIMAzole Take 1.5 tablets 0 01/13/2017 Active (TAPAZOLE) 10 MG (15 mg total) by tablet mouth daily. metoprolol Take 2 tablets 0 01/13/2017 Active (LOPRESSOR) 25 MG (50 mg total) by tablet mouth 2 (two) times daily. spironolactone-hydro Take 1 tablet by 0 01/13/2017 Active CHLOROthiazide mouth daily. (ALDACTAZIDE) 25-25 mg per tablet aspirin 81 MG EC Take 1 tablet (81 0 01/14/2017 01/14/2018 tablet mg total) by mouth daily. Active Problems Problem Noted Date Acute cystitis without hematuria 01/10/2017 TIA (transient ischemic attack) 01/09/2017 Uncontrolled hypertension 01/09/2017 Hyperthyroidism 01/09/2017 COPD (chronic obstructive pulmonary disease) 01/09/2017 Coronary artery disease 01/09/2017 Headache 01/09/2017 Leukocytosis 01/09/2017 Word finding difficulty 01/09/2017 Immunizations Name Dates Previously Given Next Due Pneumococcal Polysaccharide (Pneumovax) 01/11/2017 Social History Tobacco Use Types Packs/Day Years Used Date Current Some Day Smoker 0.5 Smokeless Tobacco: Never Used Sex Assigned at Date Recorded Not on file Job Start Date Occupation Industry Not on file Not on file Not on file Travel History Travel Start Travel End No recent travel history available. Last Filed Vital Signs Not on file Plan of Treatment Not on file Procedures Procedure Name Priority Date/Time Associated Diagnosis Comments RHYTHM STRIP - SCAN 01/21/2017 8:20 AM CDT after 01/20/2017 Results RHYTHM STRIP - SCAN (01/21/2017 8:20 AM CDT) Narrative Performed At after 01/20/2017 Insurance Payer Benefit Plan / Group Subscriber ID Type Phone Address MEDICARE MEDICARE A B xxxxxxxxxx Medicare MCR SUPPLEMENT/INDIVIDUAL AARP/[facility] xxxxxxxxxxx [facility] [address]en (Home) [address] [place] [address] Advance Directives For more information, please contact:[address] [phone] Code Status Date Activated Date Inactivated Comments Full Code 01/09/2017 3:57 AM 01/13/2017 2:09 PM This code status was determined by: Patient
--- OUTSIDE RECORDS SUMMARY | 2018-01-21 13:17 | XMS REPORT ---
:1935 [facility] Address [facility] [address]. [address] [place] [id number] Care Team Providers Name Role Phone HAILEE DOWELL Unavailable Unavailable Problems This patient has no known problems. Allergies, Adverse Reactions, Alerts This patient has no known allergies or adverse reactions. Medications This patient has no known medications. Results Test Description Test Time Test Comments Text Results Atomic Results Result Comments BLOOD CULTURE 2017-01-15 00:00:00 Test Item Value Reference Range Comments CULTURE (BEAKER) (test kram=7381) No growth in 5 days BLOOD [id number] 00:00:00 Test Item Value Reference Range Comments CULTURE (BEAKER) (test wjiu=2119) No growth in 5 days CLOSTRIDIUM DIFFICILE TOXIN [id number] 17:09:00 Test Item Value Reference Range Comments CLOSTRIDIUM DIFFICILE TOXIN, PCR (BEAKER) (test Not Detected Not Detected eurd=1287) This qualitative real-time polymerase chain reaction assay [...] a positive result is not recommended.BASIC METABOLIC [id number] 10:06:00 Test Item Value Reference Range Comments SODIUM (BEAKER) (test 138 meq/L 136-145 kkns=553) POTASSIUM (BEAKER) (test 4.2 meq/L 3.5-5.1 Specimen slightly sovx=562) hemolyzed CHLORIDE (BEAKER) (test 104 meq/L 98-107 yzit=433) CO2 (BEAKER) (test 24 meq/L 22-29 xwhe=236) BLOOD UREA NITROGEN 26 mg/dL 7-21 (BEAKER) (test iyme=789) CREATININE (BEAKER) (test 0.94 mg/dL 0.57-1.25 Specimen slightly kobp=306) hemolyzed GLUCOSE RANDOM (BEAKER) 100 mg/dL 70-105 (test rjpm=475) CALCIUM (BEAKER) (test 8.8 mg/dL 8.4-10.2 jase=472) EGFR (BEAKER) (test 57 mL/min/1.73 sq m ESTIMATED GFR IS NOT pxik=6503) ACCURATE CREATININE CLEARANCE IN PREDICTING GLOMERULAR FILTRATION RATE. ESTIMATED GFR IS NOT APPLICABLE FOR DIALYSIS PATIENTS. CBC W/PLT COUNT & AUTO [id number] 09:48:00 Test Item Value Reference Range Comments WHITE BLOOD CELL COUNT 12.9 K/ L 3.5-10.5 (BEAKER) (test jmwf=806) RED BLOOD CELL COUNT (BEAKER) 4.59 M/ L 3.93-5.22 (test cxqx=842) HEMOGLOBIN (BEAKER) (test 13.4 GM/DL 11.2-15.7 adgu=171) HEMATOCRIT (BEAKER) (test 43.1 % 34.1-44.9 dsez=327) MEAN CORPUSCULAR VOLUME 93.9 fL 79.4-94.8 (BEAKER) (test muet=920) MEAN CORPUSCULAR HEMOGLOBIN 29.2 pg 25.6-32.2 (BEAKER) (test vgyj=748) MEAN CORPUSCULAR HEMOGLOBIN 31.1 GM/DL 32.2-35.5 CONC (BEAKER) (test biky=625) RED CELL DISTRIBUTION WIDTH 12.8 % 11.7-14.4 (BEAKER) (test ntgp=850) PLATELET COUNT (BEAKER) (test 286 K/CU MM 150-450 .Discordant from previous kldj=529) results. Clinical correlation suggested. MEAN PLATELET VOLUME (BEAKER) 10.3 fL 9.4-12.3 (test aufh=563) NUCLEATED RED BLOOD CELLS 0 /100 WBC 0-0 (BEAKER) (test uyuo=407) NEUTROPHILS RELATIVE PERCENT 70 % (BEAKER) (test lkna=395) LYMPHOCYTES RELATIVE PERCENT 17 % (BEAKER) (test xvou=108) MONOCYTES RELATIVE PERCENT 8 % (BEAKER) (test qanq=844) EOSINOPHILS RELATIVE PERCENT 3 % (BEAKER) (test pvwk=907) BASOPHILS RELATIVE PERCENT 1 % (BEAKER) (test bldl=621) NEUTROPHILS ABSOLUTE COUNT 9.04 K/ L 1.56-6.13 (BEAKER) (test viaa=340) LYMPHOCYTES ABSOLUTE COUNT 2.22 K/ L 1.18-3.74 (BEAKER) (test jzof=777) MONOCYTES ABSOLUTE COUNT 0.99 K/ L 0.24-0.36 (BEAKER) (test duuy=075) EOSINOPHILS ABSOLUTE COUNT 0.32 K/ L 0.04-0.36 (BEAKER) (test cvik=759) BASOPHILS ABSOLUTE COUNT 0.15 K/ L 0.01-0.08 (BEAKER) (test dhyx=239) IMMATURE 1 % 0-1 GRANULOCYTES-RELATIVE PERCENT (BEAKER) (test esdk=7500) RAD, FOOT, 2 VIEWS, [id number] 16:52:00Reason for exam:->pain with ambulationFINAL REPORT Radiograph [...] Peterson Verified Date/Time: 01/12/2017 16:52:45 Reading Location: [address] Consult Reading Room T4, [id number] 16:26:00 Test Item Value Reference Range Comments FREE T4 (BEAKER) (test bils=279) 1.12 ng/dL 0.70-1.48 TSH/FREE T4 IF [id number] 15:46:00 Test Item Value Reference Range Comments THYROID STIMULATING HORMONE (BEAKER) (test 0.03 uIU/mL 0.35-4.94 affb=361) BASIC METABOLIC [id number] 15:35:00 Test Item Value Reference Range Comments SODIUM (BEAKER) (test 136 meq/L 136-145 ytvs=612) POTASSIUM (BEAKER) (test 4.1 meq/L 3.5-5.1 wewv=948) CHLORIDE (BEAKER) (test 99 meq/L 98-107 azsi=778) CO2 (BEAKER) (test 24 meq/L 22-29 rpbv=213) BLOOD UREA NITROGEN 32 mg/dL 7-21 (BEAKER) (test seii=213) CREATININE (BEAKER) (test 1.12 mg/dL 0.57-1.25 bzqi=065) GLUCOSE RANDOM (BEAKER) 164 mg/dL 70-105 (test hsvm=777) CALCIUM (BEAKER) (test 10.2 mg/dL 8.4-10.2 hdti=893) EGFR (BEAKER) (test 46 mL/min/1.73 sq m ESTIMATED GFR IS NOT vjpz=4337) ACCURATE CREATININE CLEARANCE IN PREDICTING GLOMERULAR FILTRATION RATE. ESTIMATED GFR IS NOT APPLICABLE FOR DIALYSIS PATIENTS. CBC W/PLT COUNT & AUTO [id number] 15:06:00 Test Item Value Reference Range Comments WHITE BLOOD CELL COUNT (BEAKER) (test qglp=454) 17.4 K/ L 3.5-10.5 RED BLOOD CELL COUNT (BEAKER) (test lgqa=173) 4.93 M/ L 3.93-5.22 HEMOGLOBIN (BEAKER) (test dvus=199) 14.0 GM/DL 11.2-15.7 HEMATOCRIT (BEAKER) (test agxp=061) 44.8 % 34.1-44.9 MEAN CORPUSCULAR VOLUME (BEAKER) (test edua=254) 90.9 fL 79.4-94.8 MEAN CORPUSCULAR HEMOGLOBIN (BEAKER) (test 28.4 pg 25.6-32.2 gkwl=119) MEAN CORPUSCULAR HEMOGLOBIN CONC (BEAKER) (test 31.3 GM/DL 32.2-35.5 wine=576) RED CELL DISTRIBUTION WIDTH (BEAKER) (test 12.9 % 11.7-14.4 rwsm=708) PLATELET COUNT (BEAKER) (test mjhk=872) 360 K/CU MM 150-450 MEAN PLATELET VOLUME (BEAKER) (test rmtv=944) 10.5 fL 9.4-12.3 NUCLEATED RED BLOOD CELLS (BEAKER) (test 0 /100 WBC 0-0 eauq=621) NEUTROPHILS RELATIVE PERCENT (BEAKER) (test 82 % lkmd=083) LYMPHOCYTES RELATIVE PERCENT (BEAKER) (test 11 % uusg=213) MONOCYTES RELATIVE PERCENT (BEAKER) (test 4 % fnpb=011) EOSINOPHILS RELATIVE PERCENT (BEAKER) (test 0 % cdxm=380) BASOPHILS RELATIVE PERCENT (BEAKER) (test 1 % kxdp=236) NEUTROPHILS ABSOLUTE COUNT (BEAKER) (test 14.33 K/ L 1.56-6.13 toxy=354) LYMPHOCYTES ABSOLUTE COUNT (BEAKER) (test 1.97 K/ L 1.18-3.74 kcxv=245) MONOCYTES ABSOLUTE COUNT (BEAKER) (test 0.71 K/ L 0.24-0.36 gyck=119) EOSINOPHILS ABSOLUTE COUNT (BEAKER) (test 0.05 K/ L 0.04-0.36 wbht=353) BASOPHILS ABSOLUTE COUNT (BEAKER) (test 0.16 K/ L 0.01-0.08 ggsr=214) IMMATURE GRANULOCYTES-RELATIVE PERCENT (BEAKER) 1 % 0-1 (test jibf=0163) URINE [id number] 08:21:00 Test Item Value Reference Range Comments CULTURE (BEAKER) (test qdye=0583) Amikacin (test code=1) Ampicillin + Sulbactam (test code=6) Aztreonam (test code=32) Cefepime (test code=51) Cefoxitin (test code=68) Ceftazidime (test code=27) Ceftriaxone (test code=52) Ertapenem (test code=38) Gentamicin (test code=18) Levofloxacin (test code=22) Meropenem (test code=34) Nitrofurantoin (test code=23) Piperacillin + Tazobactam (test code=29) Tetracycline (test code=2) Tobramycin (test code=25) Trimethoprim + Sulfamethoxazole (test code=47) CULTURE (BEAKER) (test kokg=2664) >100,000 col/mL Proteus mirabilis <10,000 col/mL skin ranjith<10,000 col/mL gram negative rods of a second typeMR, BRAIN, WITHOUT [id number] 16:03:00Reason for exam:->Ischemic Stroke EvaluationFINAL REPORT MRI [...] [place] MDReport Verified Date/Time: 16:03:04 Reading Location: [address] Neuro Reading Room URINALYSIS W/ [id number] 15:35:00 Test Item Value Reference Range Comments COLOR (BEAKER) (test ogvt=796) Light Yellow CLARITY (BEAKER) (test gqdz=425) Hazy SPECIFIC GRAVITY UA (BEAKER) (test qpor=985) 1.010 1.001-1.035 PH UA (BEAKER) (test axur=562) 8.0 5.0-8.0 PROTEIN UA (BEAKER) (test oudm=031) 20 mg/dL Negative GLUCOSE UA (BEAKER) (test rqxh=494) Negative Negative KETONES UA (BEAKER) (test pyld=533) Negative Negative BILIRUBIN UA (BEAKER) (test ygkn=092) Negative Negative BLOOD UA (BEAKER) (test nmmg=854) Negative Negative NITRITE UA (BEAKER) (test etqa=781) Negative Negative LEUKOCYTE ESTERASE UA (BEAKER) (test hqeg=692) Large Negative UROBILINOGEN UA (BEAKER) (test thbv=230) 0.2 mg/dL 0.2-1.0 RBC UA (BEAKER) (test cimu=465) 2 /HPF WBC UA (BEAKER) (test mmny=245) 87 /HPF SQUAMOUS EPITHELIAL (BEAKER) (test tyia=126) 3 /HPF SOURCE(BEAKER) (test ahwm=7069) Urine, Voided URINALYSIS W/ REFLEX URINE [id number] 15:35:00 Test Item Value Reference Range Comments COLOR (BEAKER) (test bnia=516) Light Yellow CLARITY (BEAKER) (test syve=541) Hazy SPECIFIC GRAVITY UA (BEAKER) (test ljfp=988) 1.010 1.001-1.035 PH UA (BEAKER) (test zblh=786) 8.0 5.0-8.0 PROTEIN UA (BEAKER) (test xqjv=646) 20 mg/dL Negative GLUCOSE UA (BEAKER) (test gqmg=434) Negative Negative KETONES UA (BEAKER) (test iwcz=700) Negative Negative BILIRUBIN UA (BEAKER) (test tbuq=130) Negative Negative BLOOD UA (BEAKER) (test jqln=288) Negative Negative NITRITE UA (BEAKER) (test xqxy=658) Negative Negative LEUKOCYTE ESTERASE UA (BEAKER) (test odrw=289) Large Negative UROBILINOGEN UA (BEAKER) (test lhiv=746) 0.2 mg/dL 0.2-1.0 RBC UA (BEAKER) (test alzb=621) 2 /HPF WBC UA (BEAKER) (test eory=569) 87 /HPF SQUAMOUS EPITHELIAL (BEAKER) (test apyj=280) 3 /HPF SOURCE(BEAKER) (test oxil=7996) Urine, Voided [id number] 14:30:00 Test Item Value Reference Range Comments RPR SCREEN (BEAKER) (test ozpo=224) Nonreactive Nonreactive HEMOGLOBIN [id number] 10:58:00 Test Item Value Reference Range Comments HEMOGLOBIN A1C (BEAKER) (test gwmq=892) 5.8 % 4.3-6.1 SEDIMENTATION [id number] 10:44:00 Test Item Value Reference Range Comments SEDIMENTATION RATE, ERYTHROCYTE (BEAKER) (test 52 mm/HR 0-40 laay=620) T4, [id number] 09:16:00 Test Item Value Reference Range Comments FREE T4 (BEAKER) (test idxu=898) 0.94 ng/dL 0.70-1.48 TSH/FREE T4 IF [id number] 08:42:00 Test Item Value Reference Range Comments THYROID STIMULATING HORMONE (BEAKER) (test 0.05 uIU/mL 0.35-4.94 ylgq=985) VITAMIN B12 AND [id number] 08:37:00 Test Item Value Reference Range Comments VITAMIN B12 (BEAKER) (test fsrf=677) 829 pg/mL 213-816 FOLATE (BEAKER) (test qgey=037) 15.9 ng/mL >=7.0 [id number] 08:36:00 Test Item Value Reference Range Comments HOMOCYSTEINE (BEAKER) (test matf=783) 10.2 umol/L 5.1-15.4 LIPID [id number] 08:26:00 Test Item Value Reference Range Comments TRIGLYCERIDES (BEAKER) (test akjj=995) 86 mg/dL CHOLESTEROL (BEAKER) (test kunx=402) 194 mg/dL HDL CHOLESTEROL (BEAKER) (test axqb=065) 66 mg/dL LDL CHOLESTEROL CALCULATED (BEAKER) (test 111 mg/dL cnor=021) Triglyceride Reference Range: Low Risk <150 Borderline 150- 199 High Risk 200-499 Very High Risk >=500Cholesterol Reference Range: Low Risk <200 Borderline 200-239 High Risk > 240HDL Cholesterol Reference Range: Low Risk >=60 High Risk <40LDL Cholesterol Reference Range: Optimal <100 Near Optimal 100-129 Borderline 130-159 High 160-189 Very High >=190 FastingBASIC METABOLIC [id number] 08:26:00 Test Item Value Reference Range Comments SODIUM (BEAKER) (test 136 meq/L 136-145 sxth=485) POTASSIUM (BEAKER) (test 4.7 meq/L 3.5-5.1 maxx=688) CHLORIDE (BEAKER) (test 99 meq/L 98-107 igls=956) CO2 (BEAKER) (test 24 meq/L 22-29 bvdd=789) BLOOD UREA NITROGEN 27 mg/dL 7-21 (BEAKER) (test ualr=357) CREATININE (BEAKER) (test 1.04 mg/dL 0.57-1.25 nqwm=085) GLUCOSE RANDOM (BEAKER) 133 mg/dL 70-105 (test tnlr=543) CALCIUM (BEAKER) (test 8.8 mg/dL 8.4-10.2 wsae=836) EGFR (BEAKER) (test 51 mL/min/1.73 sq m ESTIMATED GFR IS NOT oqnh=4003) ACCURATE CREATININE CLEARANCE IN PREDICTING GLOMERULAR FILTRATION RATE. ESTIMATED GFR IS NOT APPLICABLE FOR DIALYSIS PATIENTS. FastingHEPATIC FUNCTION [id number] 08:26:00 Test Item Value Reference Range Comments TOTAL PROTEIN (BEAKER) (test alyk=815) 6.8 gm/dL 6.0-8.3 ALBUMIN (BEAKER) (test unca=0698) 3.4 g/dL 3.5-5.0 BILIRUBIN TOTAL (BEAKER) (test anzh=090) 0.6 mg/dL 0.2-1.2 BILIRUBIN DIRECT (BEAKER) (test kmuq=827) 0.2 mg/dL 0.1-0.5 ALKALINE PHOSPHATASE (BEAKER) (test jzbm=957) 67 U/L 40-150 AST (SGOT) (BEAKER) (test vkeq=482) 16 U/L 5-34 ALT (SGPT) (BEAKER) (test atin=458) 11 U/L 6-55 FastingCREATINE KINASE (CK), TOTAL AND [id number] 08:26:00 Test Item Value Reference Range Comments CREATINE KINASE TOTAL (BEAKER) (test sjli=995) 30 U/L 29-200 CREATINE KINASE-MB (BEAKER) (test sulj=056) 0.8 ng/mL 0.0-6.6 CREATINE KINASE-MB INDEX (BEAKER) (test qtmf=460) 2.7 % CK-MB Reference Range:<6.7 Normal6.7-10.0 Borderline>10.0 AbnormalFastingFastingC-REACTIVE [id number] 08:26:00 Test Item Value Reference Range Comments C-REACTIVE PROTEIN (BEAKER) (test sscq=782) 1.74 mg/dL 0.00-0.50 FastingCBC W/PLT COUNT & AUTO [id number] 07:57:00 Test Item Value Reference Range Comments WHITE BLOOD CELL COUNT (BEAKER) (test twdg=923) 16.6 K/ L 3.5-10.5 RED BLOOD CELL COUNT (BEAKER) (test sqkn=033) 4.21 M/ L 3.93-5.22 HEMOGLOBIN (BEAKER) (test csju=195) 12.3 GM/DL 11.2-15.7 HEMATOCRIT (BEAKER) (test woef=669) 38.4 % 34.1-44.9 MEAN CORPUSCULAR VOLUME (BEAKER) (test xvvh=813) 91.2 fL 79.4-94.8 MEAN CORPUSCULAR HEMOGLOBIN (BEAKER) (test 29.2 pg 25.6-32.2 oytl=670) MEAN CORPUSCULAR HEMOGLOBIN CONC (BEAKER) (test 32.0 GM/DL 32.2-35.5 srgf=250) RED CELL DISTRIBUTION WIDTH (BEAKER) (test 12.9 % 11.7-14.4 afbg=181) PLATELET COUNT (BEAKER) (test suct=630) 296 K/CU MM 150-450 MEAN PLATELET VOLUME (BEAKER) (test hkbd=906) 10.3 fL 9.4-12.3 NUCLEATED RED BLOOD CELLS (BEAKER) (test 0 /100 WBC 0-0 ulfn=541) NEUTROPHILS RELATIVE PERCENT (BEAKER) (test 78 % qbor=049) LYMPHOCYTES RELATIVE PERCENT (BEAKER) (test 15 % yebt=940) MONOCYTES RELATIVE PERCENT (BEAKER) (test 5 % ccux=631) EOSINOPHILS RELATIVE PERCENT (BEAKER) (test 1 % irpy=861) BASOPHILS RELATIVE PERCENT (BEAKER) (test 1 % ghlf=224) NEUTROPHILS ABSOLUTE COUNT (BEAKER) (test 12.92 K/ L 1.56-6.13 tgvg=749) LYMPHOCYTES ABSOLUTE COUNT (BEAKER) (test 2.40 K/ L 1.18-3.74 mbge=656) MONOCYTES ABSOLUTE COUNT (BEAKER) (test 0.90 K/ L 0.24-0.36 thpr=139) EOSINOPHILS ABSOLUTE COUNT (BEAKER) (test 0.08 K/ L 0.04-0.36 wkdn=121) BASOPHILS ABSOLUTE COUNT (BEAKER) (test 0.11 K/ L 0.01-0.08 qvcb=178) IMMATURE GRANULOCYTES-RELATIVE PERCENT (BEAKER) 1 % 0-1 (test yqjs=7223) TROPONIN [id number] 07:47:00 Test Item Value Reference Range Comments TROPONIN I (BEAKER) (test sbga=935) 0.01 ng/mL 0.00-0.03 Troponin I (TnI) levels [...]
[2018-01-21] MEDS ORDERED: METHYLPREDNISOLONE 125 MG INJ ONE (13:44)
[2018-01-21] MEDS ORDERED: LEVALBUTEROL 1.25 MG/3 ML NEB ONE (13:44)
[2018-01-21 14:02] LABS: Absolute Lymphocytes (CBC) 1.9 K/uL (0.7-4.9); Absolute Monocytes 0.7 K/uL (0.1-1.3); Absolute Neutrophil 9.9 K/uL (1.8-8.0); Basophils % 1.1 % (0-1.3); Eosinophils % 4.5 % (0-4.4); Hematocrit 39.1 % (36.0-45.0); Lymphocytes % 14.6 % (15.3-44.8); MCH 30.2 pg (27.0-35.0); MCV 90.6 fL (80-100); MPV 9.1 fL (7.6-11.3); Monocytes % 5.1 % (3.3-12.3); RBC Red Blood Cell Count 4.32 M/uL (3.86-4.86)
--- NOTE | 2018-01-21 14:11 | EKG ---
Test Date: 2018-01-21 Test Time: 13:31:14 Director Retirement: [facility] MEASUREMENT RESULTS: Intervals: Rate: 78 NV: 160 QRSD: 80 QT: 392 QTc: 446 Spencer: P: 68 NV: 160 QRS: 10 T: 57 INTERPRETIVE STATEMENTS: Normal sinus rhythm Low voltage QRS Abnormal ECG Compared to ECG 10/19/2017 07:48:39 Low QRS voltage now present Sinus tachycardia no longer present Electronically Signed On 01-21-18 14:10:08 CDT by Paul Hoffman
[2018-01-21 14:29] LABS: ALT/SGPT 23 U/L (12-78); AST/SGOT 17 U/L (15-37); Albumin 3.5 g/dL (3.4-5.0); Alkaline Phosphatase 69 U/L (45-117); BUN Blood Urea Nitrogen 22 mg/dL (7-18); Bicarbonate 30 mmol/L (21-32); Bilirubin Direct < 0.1 mg/dL (0-0.2); Bilirubin Total 0.4 mg/dL (0.2-1.0); Glucose Level 158 mg/dL (74-106); NT PRO-BNP 150 pg/mL (<450); Potassium 4.4 mmol/L (3.5-5.1); Protein, Total 7.5 g/dL (6.4-8.2); Sodium Level 139 mmol/L (136-145); Troponin (Emerg Dept Use Only) < 0.02 ng/mL (0.0-0.045)
--- NOTE | 2018-01-21 14:55 | RAD REPORT ---
EXAM DESCRIPTION: RAD - Chest Single View - 01/21/2018 2:41 pm CLINICAL HISTORY: Dyspnea, shortness of breath COMPARISON: October 18 TECHNIQUE: AP portable chest image was obtained 1426 hours . FINDINGS: No focal mass, consolidation or significant failure finding. Chronic interstitial lung dis ease is present accentuated by shallow inspiration. Heart and vasculature are normal. No measurable p leural effusion and no pneumothorax. No acute bony abnormality seen. No acute aortic findings suspect ed. IMPRESSION: No acute cardiopulmonary process. No significant change from comparison.
--- NOTE | 2018-01-21 15:09 | EDPHYS ---
Physician Documentation [facility] Name: Elida Pradhan Age: 82 yrs Sex: Female : 1935 Arrival Date: 01/21/2018 Time: 13:17 Bed 25 Private MD: ED Physician Gonzalo Ritter HPI: 01/21 14:02 This 82 yrs old Female presents to ER via EMS with complaints of Shortness Of rn Breath. 14:02 The patient has shortness of breath at rest, with light activity. Onset: The rn symptoms/episode began/occurred 3 day(s) ago. Duration: The symptoms are continuous. The patient's shortness of breath is aggravated by exertion, light activity, talking, walking, is alleviated by application of supplemental oxygen. Severity of symptoms: At their worst the symptoms were moderate in the emergency department the symptoms have improved. The patient has experienced similar episodes in the past. The patient has not recently seen a physician. Historical: - Allergies: 13:18 Levaquin; hb - Home Meds: 13:18 Aldactazide 25mg-25mg tablet PO daily [Active]; Effexor XR XR 75 mg PO BID Oral cp24 1 hb cap once daily [Active]; diazepam 5 mg Oral tab 1 tab 2 times per day [Active]; ellipta [Active]; Flagyl 500 mg Oral tab 1 tab 3 times per day [Active]; hydrocodone-acetaminophen 5-325 mg Oral tab twice a day [Active]; Lotrisone 1-0.05 % Topical crea 2 times per day [Active]; methimazole 10 mg Oral tab 1 tab three times a day [Active]; metoprolol tartrate 25 mg Oral tab 1 tab 2 times per day [Active]; prednisone 5 mg Oral tab once daily [Active]; mirtazapine 15 mg Oral TbDL 1 tab once daily [Active]; nystatin 100,000 unit/gram Topical powd 2 times per day [Active]; ProAir HFA 90 mcg/actuation inhalation HFAA 2 puffs every 6 hours [Active]; - PMHx: 13:18 COPD; Hypertension; DYSPHAGIA; Myocardial infarction; CHF; hb - PSHx: 13:18 None; hb - Immunization history:: Adult Immunizations up to date. - Social history:: Smoking status: Patient/guardian denies using tobacco. - Ebola Screening: : No symptoms or risks identified at this time. - Family history:: not pertinent. - Hospitalizations: : No recent hospitalization is reported. ROS: 14:02 Constitutional: Negative for fever, chills, and weight loss, Eyes: Negative for injury, rn pain, redness, and discharge, Neck: Negative for injury, pain, and swelling, Cardiovascular: Negative for chest pain, palpitations, and edema, Respiratory: + sob and cough, no hemoptysis Abdomen/GI: Negative for abdominal pain, nausea, vomiting, diarrhea, and constipation, MS/Extremity: Negative for injury and deformity, Skin: Negative for injury, rash, and discoloration, Neuro: + generalized weakness Exam: 14:02 Constitutional: This is a well developed, well nourished patient who is awake, alert rn with moderate tachypnea, audible wheezing from foot of bed Head/Face: Normocephalic, atraumatic. ENT: dry MM, no stridor Cardiovascular: regular, no murmur Respiratory: + moderate tachypnea, able to speak 5 word sentences with increased effort, no retractions, no tripoding, + bilateral exp wheezing Abdomen/GI: soft, non-tender MS/ Extremity: Pulses equal, no cyanosis. 1+ edema bilateral lower ext, equal circumference Neuro: Awake and alert, GCS 15, oriented to person, place, time, and situation. Cranial nerves II-XII grossly intact. Motor strength 5/5 in all extremities. Sensory grossly intact. Vital Signs: 13:18 BP 96 / 49; Pulse 79; Resp 20; Temp 98.2; Pulse Ox 95% on 8% Nebulizer Mask; Pain 0/10; hb 13:50 BP 125 / 75; Pulse 80; Resp 20; Pulse Ox 100% on Nebulizer Mask; tw2 14:23 BP 128 / 67; Pulse 90; Resp 20; Pulse Ox 96% on 2 lpm NC; tw2 15:15 BP 128 / 78; Pulse 91; Resp 19; Pulse Ox 92% on 2.5 lpm NC; tw2 16:26 BP 135 / 69; Pulse 93; Resp 19; Pulse Ox 93% on 2.5 lpm NC; tw2 17:35 BP 127 / 76; Pulse 98; Resp 19; Pulse Ox 94% on 2.5 lpm NC; tw2 14:23 pt reports using 2L or 2.5L nc at home tw2 15:15 will continue to monitor tw2 MDM: 13:18 Patient medically screened. rn 15:02 Differential diagnosis: Chronic Obstructive Pulmonary Disease Myocardial Infarction rn pneumonia, Pneumothorax pulmonary edema, reactive airway disease. Data reviewed: vital signs, nurses notes, lab test result(s), EKG, radiologic studies, plain films, and as a result, I will admit patient. Counseling: I had a detailed discussion with the patient and/or guardian regarding: the historical points, exam findings, and any diagnostic results supporting the discharge/admit diagnosis, lab results, radiology results, the need for further work-up and treatment in the hospital. Response to treatment: the patient's symptoms have mildly improved after treatment, and as a result, I will admit patient. Admission orders: after a detailed discussion of the patient's condition and case, the admit orders are written by me. ED course: Pt still with tachypnea, + COPD exacerbation, still not back to baseline despite steroids and 6 breathing treatments, spoke with Dr. Saldana, will admit for COPD exacerbation and further care.. 01/21 13:26 Order name: Blood Culture Adult (2) rn 01/21 13:26 Order name: BMP; Complete Time: 14:35 rn 01/21 13:26 Order name: CBC with Diff; Complete Time: 14:35 rn 01/21 13:26 Order name: Hepatic Function; Complete Time: 14:35 rn 01/21 13:26 Order name: NT PRO-BNP; Complete Time: 14:35 rn 01/21 13:26 Order name: Troponin (emerg Dept Use Only); Complete Time: 14:35 rn 01/21 13:26 Order name: XRAY CXR (1 view); Complete Time: 14:59 rn 01/21 13:26 Order name: EKG; Complete Time: 13:27 rn 01/21 13:26 Order name: Cardiac monitoring; Complete Time: 13:33 rn 01/21 13:26 Order name: EKG - Nurse/Tech; Complete Time: 13:33 rn 01/21 13:26 Order name: IV Saline Lock; Complete Time: 13:50 rn 01/21 13:26 Order name: Labs collected and sent; Complete Time: 13:50 rn 01/21 13:26 Order name: O2 Per Protocol; Complete Time: 13:33 rn 11/02 13:26 Order name: O2 Sat Monitoring; Complete Time: 13:33 rn Administered Medications: 13:45 Drug: Xopenex (3) 1.25 mg Route: Inhalation; tw2 14:24 Follow up: Response: No adverse reaction tw2 13:50 Drug: SOLU-Medrol 125 mg Route: IVP; Site: right antecubital; tw2 14:24 Follow up: Response: No adverse reaction tw2 Disposition: 01/21/18 15:08 Hospitalization ordered by Slade Saldana for Inpatient Admission. Preliminary diagnosis is Chronic obstructive pulmonary disease with acute lower respiratory infection. - Bed requested for Telemetry/MedSurg (Inpatient). - Status is Inpatient Admission. tw2 - Condition is Stable. - Problem is an acute exacerbation. - Symptoms have improved. UTI on Admission? No Signatures: Dispatcher [employer] EDMS Gonzalo Ritter MD MD rn Baxter, Heather, RN RN Lili Mederos RN RN 2 Rosalinda Heredia Corrections: (The following items were deleted from the chart) 15:51 15:08 Hospitalization Ordered by Slade Saldana MD for Inpatient Admission. Preliminary eb diagnosis is Chronic obstructive pulmonary disease with acute lower respiratory infection. Bed requested for Telemetry/MedSurg (Inpatient). Status is Inpatient Admission. Condition is Stable. Problem is an acute exacerbation. Symptoms have improved. UTI on Admission? No. rn 17:56 15:51 01/21/2018 15:08 Hospitalization Ordered by Slade Saldana MD for Inpatient tw2 Admission. Preliminary diagnosis is Chronic obstructive pulmonary disease with acute lower respiratory infection. Bed requested for Telemetry/MedSurg (Inpatient). Status is Inpatient Admission. Condition is Stable. Problem is an acute exacerbation. Symptoms have improved. UTI on Admission? No. eb
--- NOTE | 2018-01-21 15:09 | ER ---
Nurse's Notes [facility] Name: Elida Pradhan Age: 82 yrs Sex: Female : 1935 Arrival Date: 01/21/2018 Time: 13:17 Bed 25 Private MD: Diagnosis: Chronic obstructive pulmonary disease with acute lower respiratory infection Presentation: 01/21 13:18 Presenting complaint: EMS states: SOB x 3 days. SpO2 94% on 4LNC. Transition of care: hb patient was not received from another setting of care. Onset of symptoms was January 21, 2018. Risk Assessment: Do you want to hurt yourself or someone else? Patient reports no desire to harm self or others. Care prior to arrival: Med neb given. 13:18 Method Of Arrival: EMS: [facility] 13:18 Acuity: TALYA 3 hb 14:25 Initial Sepsis Screen: Does the patient meet any 2 criteria? RR > 20 per min. HR > 90 tw2 bpm. Yes Does the patient have a suspected source of infection? No. Patient's initial sepsis screen is negative. Historical: - Allergies: 13:18 Levaquin; hb - Home Meds: 13:18 Aldactazide 25mg-25mg tablet PO daily [Active]; Effexor XR XR 75 mg PO BID Oral cp24 1 hb cap once daily [Active]; diazepam 5 mg Oral tab 1 tab 2 times per day [Active]; ellipta [Active]; Flagyl 500 mg Oral tab 1 tab 3 times per day [Active]; hydrocodone-acetaminophen 5-325 mg Oral tab twice a day [Active]; Lotrisone 1-0.05 % Topical crea 2 times per day [Active]; methimazole 10 mg Oral tab 1 tab three times a day [Active]; metoprolol tartrate 25 mg Oral tab 1 tab 2 times per day [Active]; prednisone 5 mg Oral tab once daily [Active]; mirtazapine 15 mg Oral TbDL 1 tab once daily [Active]; nystatin 100,000 unit/gram Topical powd 2 times per day [Active]; ProAir HFA 90 mcg/actuation inhalation HFAA 2 puffs every 6 hours [Active]; - PMHx: 13:18 COPD; Hypertension; DYSPHAGIA; Myocardial infarction; CHF; hb - PSHx: 13:18 None; hb - Immunization history:: Adult Immunizations up to date. - Social history:: Smoking status: Patient/guardian denies using tobacco. - Ebola Screening: : No symptoms or risks identified at this time. - Family history:: not pertinent. - Hospitalizations: : No recent hospitalization is reported. Screenin:22 Abuse screen: Denies threats or abuse. Denies injuries from another. Nutritional hb screening: No deficits noted. Tuberculosis screening: No symptoms or risk factors identified. Fall Risk Total Howell Fall Scale indicates High Risk Score (45 or more points). Fall prevention measures have been instituted. Side Rails Up X 2 Frequent Obs/Assessments Occuring As available patient and family educated on Fall Prevention Program and Strategies. Assessment: 13:20 General: Appears in no apparent distress. obese, well groomed, Behavior is calm, tw2 cooperative, appropriate for age. Pain: Denies pain. Neuro: Level of Consciousness is awake, alert, obeys commands, Oriented to person, place, time, situation. Cardiovascular: Reports shortness of breath, Denies chest pain, Heart tones S1 S2 Patient's skin is warm and dry. Respiratory: Reports shortness of breath Airway is patent Respiratory effort is even, unlabored, Respiratory pattern is regular, symmetrical, Breath sounds are diminished bilaterally. GI: No signs and/or symptoms were reported involving the gastrointestinal system. Abdomen is round obese, Bowel sounds present X 4 quads. : No signs and/or symptoms were reported regarding the genitourinary system. EENT: No signs and/or symptoms were reported regarding the EENT system. Derm: No signs and/or symptoms reported regarding the dermatologic system. Musculoskeletal: Range of motion: intact in all extremities. 14:24 Reassessment: Patient appears in no apparent distress at this time. No changes from tw2 previously documented assessment. Patient and/or family updated on plan of care and expected duration. Pain level reassessed. Patient is alert, oriented x 3, equal unlabored respirations, skin warm/dry/pink. 15:17 Reassessment: Patient appears in no apparent distress at this time. No changes from tw2 previously documented assessment. Patient and/or family updated on plan of care and expected duration. Pain level reassessed. Patient is alert, oriented x 3, equal unlabored respirations, skin warm/dry/pink. 16:26 Reassessment: Patient appears in no apparent distress at this time. No changes from tw2 previously documented assessment. Patient and/or family updated on plan of care and expected duration. Pain level reassessed. Patient is alert, oriented x 3, equal unlabored respirations, skin warm/dry/pink. 17:36 Reassessment: Patient appears in no apparent distress at this time. No changes from tw2 previously documented assessment. Patient and/or family updated on plan of care and expected duration. Pain level reassessed. Patient is alert, oriented x 3, equal unlabored respirations, skin warm/dry/pink. Vital Signs: 13:18 BP 96 / 49; Pulse 79; Resp 20; Temp 98.2; Pulse Ox 95% on 8% Nebulizer Mask; Pain 0/10; hb 13:50 BP 125 / 75; Pulse 80; Resp 20; Pulse Ox 100% on Nebulizer Mask; tw2 14:23 BP 128 / 67; Pulse 90; Resp 20; Pulse Ox 96% on 2 lpm NC; tw2 15:15 BP 128 / 78; Pulse 91; Resp 19; Pulse Ox 92% on 2.5 lpm NC; tw2 16:26 BP 135 / 69; Pulse 93; Resp 19; Pulse Ox 93% on 2.5 lpm NC; tw2 17:35 BP 127 / 76; Pulse 98; Resp 19; Pulse Ox 94% on 2.5 lpm NC; tw2 14:23 pt reports using 2L or 2.5L nc at home tw2 15:15 will continue to monitor tw2 ED Course: 13:17 Patient arrived in ED. hb 13:18 Gonzalo Ritter MD is Attending Physician. rn 13:18 Arm band placed on. hb 13:20 Triage completed. hb 13:22 Lili Mederos, HARSHAL is Primary Nurse. tw2 13:22 Patient has correct armband on for positive identification. Placed in gown. Bed in low hb position. Call light in reach. Side rails up X2. 13:35 EKG done, by electrophysiology tech. reviewed by Gonzalo Ritter MD. at1 13:45 Inserted saline lock: 20 gauge in right antecubital area, using aseptic technique. hb Blood collected. 14:36 X-ray completed. Portable x-ray completed in exam room. Patient tolerated procedure ls3 well. 14:41 XRAY CXR (1 view) In Process Unspecified. EDMS 15:07 Les, Slade, MD is Hospitalizing Provider. rn 16:08 Awaiting: attempted to call report, HARSHAL Bertrand is not ready to receive pt, per tw2 HARSHAL Villeda as broker in charge and she is not sure when they will be able to receive pt. 16:32 Awaiting: attempted to call report at this time, was told they needed another 30 tw2 minutes because they just got a patient, charge nurse HARSHAL Hickman notified at this time. 17:23 Awaiting: attempted to call report, left on hold 10 minutes, called back per HARSHAL Villeda tw2 was told they were paging the nurse, was left on hold again, called back at 1732 told Ellie, psychiatric secretary to have HARSHAL Bertrand call me back when she can take report, I cannot hold any longer on the phone. 17:44 No provider procedures requiring assistance completed. Patient admitted, IV remains in tw2 place. Administered Medications: 13:45 Drug: Xopenex (3) 1.25 mg Route: Inhalation; tw2 14:24 Follow up: Response: No adverse reaction tw2 13:50 Drug: SOLU-Medrol 125 mg Route: IVP; Site: right antecubital; tw2 14:24 Follow up: Response: No adverse reaction tw2 Outcome: 15:08 Decision to Hospitalize by Provider. rn 17:44 Admitted to Med/surg accompanied by tech, via stretcher, room 231, Report called to tw2 HARSHAL Bertrand at this time. 17:44 Condition: stable 17:44 Instructed on the need for admit, Demonstrated understanding of instructions. 17:56 Patient left the ED. tw2 Signatures: Dispatcher [employer] EDDC Gonzalo Ritter MD MD rn Gonzales, Amanda, twine winder EKG Tat1 Marylou Greenwood RN Lili Barkley RN RN tw2 Danielle Null ls3 Corrections: (The following items were deleted from the chart) 16:51 16:32 Awaiting: attempted to call report at this time, was told they needed another 30 tw2 minutes. tw2 17:33 16:32 Awaiting: attempted to call report at this time, was told they needed another 30 tw2 minutes, charge nurse HARSHAL Hickman notified at this time. tw2 17:33 17:23 Awaiting: attempted to call report, tw2 tw2
[2018-01-21] MEDS ORDERED: ALBUTEROL 2.5 MG/3 ML NEB SOL NEB PRN (18:09)
[2018-01-21] MEDS ORDERED: ACETAMINOPHEN 500 MG TAB PO PRN (18:09)
[2018-01-21] MEDS ORDERED: ONDANSETRON 4 MG/2 ML VIAL IV PRN (18:09)
[2018-01-21] MEDS ORDERED: IPRATROPIUM BROM 0.5MG/2.5ML NEB PRN (18:09)
[2018-01-21] MEDS: METHYLPREDNISOLONE 40 MG INJ IV SCH (18:57)
[2018-01-21 19:07] VITALS: BMI 34.7
[2018-01-21] MEDS ORDERED: NA CHLORIDE 0.9% 50 ML ONE (20:26)
[2018-01-21] MEDS ORDERED: CEFTRIAXONE 1000 MG/VIAL ONE (20:26)
[2018-01-21] MEDS ORDERED: CEFTRIAXONE 1 GM/NS 50 ML 1 GM/50 ML BAG IV SCH (21:00)
--- NOTE | 2018-01-21 23:05 | P.HP ---
Certification for Inpatient Patient admitted to: Inpatient With expected LOS: >2 Midnights Practitioner: I am a practitioner with admitting privileges, knowledge of patient current condition, hospital course, and medical plan of care. Services: Services provided to patient in accordance with Admission requirements found in Title 42 Section 412.3 of the Code of Federal Regulations Patient History Date of Service: 01/21/18 Reason for admission: SHORT OF BREATH, COUGH History of Present Illness: MS. FOWLER IS A SEVERE COPD PATIENT WHO HAS BEEN DYSPNEIC MORE THAN USUAL FOR LAST 3 WEEKS. SHE KEPT ON GETTING WORSE ON HER USUAL COPD MEDS AND SO REPORTED TO ER. Allergies ciprofloxacin Adverse Reaction (Verified 01/21/18 18:54) Nausea/Vomiting levofloxacin [From Levaquin] Adverse Reaction (Verified 01/21/18 18:54) Nausea/Vomiting Home Medications: Diazepam [Valium] 2.5 mg PO BEDTIME PRN 09/20/17 Methimazole [Tapazole] 10 mg PO TID 09/20/17 Metoprolol Tartrate [Lopressor] 25 mg PO BID 09/20/17 Mirtazapine [Remeron*] 15 mg PO BEDTIME 09/20/17 Spironolact/Hydrochlorothiazid [Aldactazide 25-25 Tablet] 1 each PO DAILY Venlafaxine HCl [Venlafaxine HCl ER] 150 mg PO DAILY 09/20/17 Amlodipine [Norvasc*] 5 mg PO DAILY #30 tab 09/24/17 Albuterol Sulfate [Proair Hfa] 2 puff IN QID 10/18/17 Codeine/APAP [Tylenol #3*] 1 tab PO BIDP PRN 10/18/17 Umeclidinium Brm/Vilanterol Tr [Anoro Ellipta 62.5-25 Mcg INH] 1 each IH DAILY 10/18/17 predniSONE [Deltasone] 20 mg PO DAILY #30 tab 10/22/17 - Past Medical/Surgical History Has patient received pneumonia vaccine in the past: Yes Diabetic: No -: HTN -: [place] -: COPD -: childhood asthma -: dysphagia -: tonsilectomy @ 8 yrs old - Family History Father -: Kidney disease Notes: Bryte's disease Mother -: Stroke Sister -: Hypertension Brother -: Cancer Notes: cancer of esophagus and colon cancer - Social History Smoking Status: Current some day smoker Alcohol use: No CD- Drugs: No Caffeine use: Yes Place of Residence: Home Review of Systems 10-point ROS is otherwise unremarkable General: Weakness, Malaise Respiratory: Cough, Shortness of Breath Physical Examination - Vital Signs Temperature: 97.1 F Blood Pressure: 180/79 Pulse: 107 Respirations: 20 Pulse Ox (%): 99 - Physical Exam General: Alert, Moderate distress, Obese HEENT: Atraumatic, PERRLA, Mucous membr. moist/pink, EOMI, Sclerae nonicteric Neck: Supple, 2+ carotid pulse no bruit, No LAD, Without JVD or thyroid abnormality Respiratory: Diminished, Rhonchi/gurgles Cardiovascular: Regular rate/rhythm, Normal S1 S2 Gastrointestinal: Normal bowel sounds, No tenderness Musculoskeletal: No tenderness Integumentary: No rashes Neurological: Normal gait, Normal speech, Normal strength at 5/5 x4 extr, Normal tone, Normal affect Lymphatics: No axilla or inguinal lymphadenopathy - Studies Laboratory Data (last 24 hrs) 01/21/18 13:45: WBC 13.3 H, Hgb 13.1, Hct 39.1, Plt Count 312 01/21/18 13:45: Sodium 139, Potassium 4.4, BUN 22 H, Creatinine 1.30, Glucose 158 H, Total Bilirubin 0.4, AST 17, ALT 23, Alkaline Phosphatase 69 Assessment and Plan - Problems (Diagnosis) (1) COPD exacerbation Onset Date: 07/09/16 Current Visit: No Status: Acute Plan: COPD AND BROCHITIS AGREE WITH STEROIDS, NEBS AND ROCEPHIN LACTIC ACIDOSIS CAN BE FROM MUSCLE EXERSION OF COPD. LEUKOCYTOSIS IS FROM STEROID- CHRONIC USE AND NOT INFECTION. WILL FU DAILY. CHECK TSH LEVEL. SONOGRAM OF ABDOMEN FOR DISTENSION THAT IS FROM STEROIDS. - Advance Directives Does patient have a Living Will: No Does patient have a Durable POA for Healthcare: Yes
[2018-01-22] MEDS: METHYLPREDNISOLONE 40 MG INJ IV SCH ×3 (00:19→17:38)
[2018-01-22] MEDS ORDERED: INFLUENZA VACCINE (for 3y+) 0.5 ML DOSE IMVAC ONE (06:00)
[2018-01-22 06:10] LABS: Absolute Lymphocytes (CBC) 0.9 K/uL (0.7-4.9); Absolute Monocytes 0.1 K/uL (0.1-1.3); Absolute Neutrophil 13.6 K/uL (1.8-8.0); Basophils % 0.3 % (0-1.3); Hematocrit 36.7 % (36.0-45.0); Lymphocytes % 6.3 % (15.3-44.8); MCH 30.1 pg (27.0-35.0); MCV 90.9 fL (80-100); MPV 9.4 fL (7.6-11.3); Monocytes % 0.5 % (3.3-12.3); RBC Red Blood Cell Count 4.04 M/uL (3.86-4.86)
[2018-01-22 06:34] LABS: Potassium 5.6 mmol/L (3.5-5.1)
[2018-01-22 07:04] LABS: Blood Morphology Comment NOT SEEN (NOT SEEN); Platelet Estimate ADEQ
[2018-01-22] MEDS ORDERED: DIAZEPAM 5 MG TABLET PO PRN (08:04)
[2018-01-22] MEDS ORDERED: HOME MED 1 EA UNK (Venlafaxine Hcl [Venlafaxine Hcl Er] 150 MG) PO SCH (09:00)
[2018-01-22] MEDS ORDERED: NACHLORIDE 0.45% 1,000 ML IV SCH (09:00)
[2018-01-22] MEDS: HOME MED 1 EA UNK (Umeclidinium Brm/Vilanterol Tr [Anoro Ellipta 62.5-25 Mcg Inh] 1 EACH) IH SCH (09:00)
[2018-01-22] MEDS ORDERED: METHIMAZOLE 10 MG PO SCH (09:00)
[2018-01-22] MEDS: CODEINE 30MG/APAP 300MG TAB PO PRN ×2 (09:07→20:29)
[2018-01-22] MEDS: AMLODIPINE 5 MG TAB PO SCH (09:08)
[2018-01-22] MEDS: METOPROLOL TAR 50 MG TAB PO SCH ×2 (09:09→20:30)
[2018-01-22] MEDS: CEFTRIAXONE/SWI 1gm 1 GM/10 ML SYR IVP SCH (09:10)
[2018-01-22] MEDS: ASPIRIN EC 81 MG TAB PO SCH (09:11)
--- NOTE | 2018-01-22 14:07 | CON ---
Chief Complaint: Dyspnea. History Of Present Illness: Ms. Pradhan is a woman who has a chronic stable angina. She has used nitroglycerin once in the last 6 months. It was roughly a month ago. She is not having chest pain now. She has cough. No fever. A clear x-ray not consistent with congestive heart failure, and she seems to be getting better with bronchodilators and oxygen therapy and antibiotics. An echocardiogra m roughly 3 months ago was normal no abnormalities. Physical Examination: General: She is 5 feet 1 inch, 183 pounds. Alert, oriented, pleasant, not in distress. Lungs: Reveal some mild basilar crackles. Heart: No significant abnormality. Abdomen: Soft. Extremities: 2+ pitting edema. Mild redness of the skin, but it is not cellulitis. Vital Signs: Blood pressure 133/71, temperature 97.1. Impression: Ms. Pradhan probably has an exacerbation of underlying chronic obstructive pulmonary disease. There may be some volume overload as well. I will recommend against us giving any IV fluid s. I do not think that is a good idea. She might benefit from some diuresis. I think it is mainly the bronchodilators that is helping her. She is getting albuterol, ceftriaxone, hypertropia, and met hylprednisolone. Thank you very much for your kind referral of Ms. Pradhan. I will follow her with you. DELFINO Voice ID: [id number] Report ID: [id number]
[2018-01-22 14:52] LABS: Potassium 4.8 mmol/L (3.5-5.1)
--- NOTE | 2018-01-22 17:58 | P.PN ---
Subjective Date of Service: 01/22/18 Chief Complaint: IMPROVED SOME Subjective: Improving MS FOWLER HAS SEVERE COPD AND SHOWS SOME IMPROVEMENT NOW. SHE IS ABLE TO WALK AFEW STEPS BUT HAS TO STOP. Review of Systems 10-point ROS is otherwise unremarkable General: Weakness, Malaise Respiratory: Shortness of Breath Physical Examination - Vital Signs Temperature: 97.7 F Blood Pressure: 134/70 Pulse: 99 Respirations: 20 Pulse Ox (%): 98 - Physical Exam General: Alert, Acute distress, Moderate distress HEENT: Atraumatic, PERRLA, EOMI Neck: Supple, JVD not distended Respiratory: Diminished Cardiovascular: Regular rate/rhythm, Normal S1 S2 Gastrointestinal: Normal bowel sounds, No tenderness Musculoskeletal: No tenderness Integumentary: No rashes Neurological: Normal speech, Normal tone, Normal affect Lymphatics: No axilla or inguinal lymphadenopathy - Studies Medications List Reviewed: Yes Assessment And Plan - Current Problems (Diagnosis) (1) COPD exacerbation Onset Date: 07/09/16 Current Visit: No Status: Acute Plan: COPD AND BROCHITIS AGREE WITH STEROIDS, NEBS AND ROCEPHIN LACTIC ACIDOSIS CAN BE FROM MUSCLE EXERSION OF COPD. LEUKOCYTOSIS IS FROM STEROID- CHRONIC USE AND NOT INFECTION. WILL FU DAILY. CHECK TSH LEVEL. SONOGRAM OF ABDOMEN FOR DISTENSION THAT IS FROM STEROIDS. ADD BROVANA REDUCE ALBUTEROL ADD LOVENOX FOR PROPHYLAXIS.
[2018-01-22] MEDS: ALBUTEROL 2.5 MG/3 ML NEB SOL NEB SCH ×2 (18:00→20:27)
[2018-01-22] MEDS ORDERED: CEFTRIAXONE 1 GM/NS 50 ML 1 GM/50 ML BAG IV SCH (19:33)
[2018-01-22] MEDS: ARFORMOTEROL TARTRATE 15 MCG/2 ML VIAL.NEB NEB SCH (20:27)
[2018-01-22] MEDS: MIRTAZAPINE 15 MG TAB PO SCH (20:32)
[2018-01-22] MEDS: ENOXAPARIN 30 MG/0.3 ML SQ SCH (20:34)
--- NOTE | 2018-01-22 21:01 | RAD REPORT ---
EXAM DESCRIPTION: US - Abdomen Exam Complete - 01/22/2018 8:14 pm CLINICAL HISTORY: Abdominal pain COMPARISON: none FINDINGS: Vague 12 millimeter hypoechoic area is present within the left lobe of the liver A gallstone is not seen. The gallbladder wall measures 3 millimeters. Common bile duct measures 9 mil limeter The pancreas appears normal in size and echotexture The right kidney measures 9 centimeters with a normal echotexture. The left kidney measures 10 centimeters with a normal echotexture. The spleen measures 9 centimeters. The abdominal aorta and inferior vena cava appear unremarkable IMPRESSION: Vague 12 millimeter hypoechoic area within the left lobe of the liver. Follow-up ultraso und in 3 months is recommended to assess stability Borderline gallbladder wall thickening with borderline dilatation of the common bile duct. Most likel y this is not significant. This should be correlated clinically. This also can be reassessed on a [facility] lowup ultrasound in 3 months
[2018-01-23] MEDS: METHYLPREDNISOLONE 40 MG INJ IV SCH ×3 (01:10→16:42)
[2018-01-23 06:31] LABS: Urine Appearance CLEAR; Urine Bilirubin NEGATIVE (NEG); Urine Blood NEGATIVE (NEG); Urine Color YELLOW; Urine Glucose 1+ (NEG); Urine Protein NEGATIVE (NEG); Urine Urobilinogen 0.2 mg/dL (0.2-1.0)
[2018-01-23 07:14] LABS: Urine Microscopic Reflex ORDER UMIC
[2018-01-23 07:16] LABS: Urine Bacteria <20 /HPF (<20); Urine Culture Reflex Order NOT NEEDED; Urine RBC <5 /HPF (NONE SEEN)
[2018-01-23] MEDS: ARFORMOTEROL TARTRATE 15 MCG/2 ML VIAL.NEB NEB SCH ×2 (08:33→21:08)
[2018-01-23] MEDS: ALBUTEROL 2.5 MG/3 ML NEB SOL NEB SCH ×2 (08:33→21:08)
[2018-01-23] MEDS: METOPROLOL TAR 50 MG TAB PO SCH ×2 (08:51→21:10)
[2018-01-23] MEDS: AMLODIPINE 5 MG TAB PO SCH (08:52)
[2018-01-23] MEDS: VENLAFAXINE HCL XR 75 MG CAP PO SCH (08:52)
[2018-01-23] MEDS: ASPIRIN EC 81 MG TAB PO SCH (08:52)
[2018-01-23] MEDS: CEFTRIAXONE/SWI 1gm 1 GM/10 ML SYR IVP SCH (08:53)
[2018-01-23] MEDS: HOME MED 1 EA UNK (Umeclidinium Brm/Vilanterol Tr [Anoro Ellipta 62.5-25 Mcg Inh] 1 EACH) IH SCH (08:54)
[2018-01-23] MEDS: ENOXAPARIN 30 MG/0.3 ML SQ SCH (16:42)
[2018-01-23] MEDS: MIRTAZAPINE 15 MG TAB PO SCH (21:10)
[2018-01-24] MEDS: METHYLPREDNISOLONE 40 MG INJ IV SCH ×3 (00:53→17:56)
[2018-01-24] MEDS: ALBUTEROL 2.5 MG/3 ML NEB SOL NEB SCH ×2 (07:40→19:16)
[2018-01-24] MEDS: ARFORMOTEROL TARTRATE 15 MCG/2 ML VIAL.NEB NEB SCH ×2 (07:40→19:16)
[2018-01-24] MEDS: HOME MED 1 EA UNK (Umeclidinium Brm/Vilanterol Tr [Anoro Ellipta 62.5-25 Mcg Inh] 1 EACH) IH SCH (09:00)
[2018-01-24] MEDS: VENLAFAXINE HCL XR 75 MG CAP PO SCH (09:09)
[2018-01-24] MEDS: METOPROLOL TAR 50 MG TAB PO SCH ×2 (09:09→20:55)
[2018-01-24] MEDS: ASPIRIN EC 81 MG TAB PO SCH (09:10)
[2018-01-24] MEDS: CODEINE 30MG/APAP 300MG TAB PO PRN (09:11)
[2018-01-24] MEDS: AMLODIPINE 5 MG TAB PO SCH (09:11)
[2018-01-24] MEDS: CEFTRIAXONE/SWI 1gm 1 GM/10 ML SYR IVP SCH (10:13)
--- NOTE | 2018-01-24 17:38 | P.PN ---
Subjective Date of Service: 01/23/18 Chief Complaint: IMPROVED SOME Subjective: Improving MS FOWLER HAS SEVERE COPD AND SHOWS SOME IMPROVEMENT NOW. SHE IS ABLE TO WALK AFEW STEPS BUT HAS TO STOP. STILL VERY DYSPNEIC WITH MINIMAL EXERSION. Physical Examination - Vital Signs Temperature: 97.0 F Blood Pressure: 140/85 Pulse: 83 Respirations: 18 Pulse Ox (%): 93 - Physical Exam General: Alert, Moderate distress HEENT: Atraumatic, PERRLA, EOMI Neck: Supple, JVD not distended Respiratory: Diminished, Rhonchi/gurgles Cardiovascular: Regular rate/rhythm, Normal S1 S2 Gastrointestinal: Normal bowel sounds, No tenderness Musculoskeletal: No tenderness Integumentary: No rashes Neurological: Normal speech, Normal tone, Normal affect Lymphatics: No axilla or inguinal lymphadenopathy - Studies Medications List Reviewed: Yes Assessment And Plan - Current Problems (Diagnosis) (1) COPD exacerbation Onset Date: 07/09/16 Current Visit: No Status: Acute Plan: COPD AND BROCHITIS AGREE WITH STEROIDS, NEBS AND ROCEPHIN LACTIC ACIDOSIS CAN BE FROM MUSCLE EXERSION OF COPD. LEUKOCYTOSIS IS FROM STEROID- CHRONIC USE AND NOT INFECTION. WILL FU DAILY. CHECK TSH LEVEL. SONOGRAM OF ABDOMEN FOR DISTENSION THAT IS FROM STEROIDS. ADD BROVANA REDUCE ALBUTEROL ADD LOVENOX FOR PROPHYLAXIS.
--- NOTE | 2018-01-24 17:39 | P.PN ---
Subjective Date of Service: 01/24/18 Chief Complaint: IMPROVED SOME Subjective: Improving MS FOWLER HAS SEVERE COPD AND SHOWS SOME IMPROVEMENT NOW. SHE IS ABLE TO WALK AFEW STEPS BUT HAS TO STOP. STILL VERY DYSPNEIC WITH MINIMAL EXERSION. GRADUAL SLOW IMP. Review of Systems 10-point ROS is otherwise unremarkable General: Weakness, Malaise Respiratory: Shortness of Breath Physical Examination - Vital Signs Temperature: 97.0 F Blood Pressure: 140/85 Pulse: 83 Respirations: 18 Pulse Ox (%): 93 - Physical Exam General: Alert, Moderate distress HEENT: Atraumatic, PERRLA, EOMI Neck: Supple, JVD not distended Cardiovascular: Regular rate/rhythm, Normal S1 S2 Gastrointestinal: Normal bowel sounds, No tenderness Musculoskeletal: No tenderness Integumentary: No rashes Neurological: Normal speech, Normal tone, Normal affect Lymphatics: No axilla or inguinal lymphadenopathy - Studies Medications List Reviewed: Yes Assessment And Plan - Current Problems (Diagnosis) (1) COPD exacerbation Onset Date: 07/09/16 Current Visit: No Status: Acute Plan: COPD AND BROCHITIS AGREE WITH STEROIDS, NEBS AND ROCEPHIN LACTIC ACIDOSIS CAN BE FROM MUSCLE EXERSION OF COPD. LEUKOCYTOSIS IS FROM STEROID- CHRONIC USE AND NOT INFECTION. WILL FU DAILY. CHECK TSH LEVEL. SONOGRAM OF ABDOMEN FOR DISTENSION THAT IS FROM STEROIDS. ADD BROVANA REDUCE ALBUTEROL ADD LOVENOX FOR PROPHYLAXIS. POSS DC IN AM. STILL VERY WEAK.
[2018-01-24] MEDS: ENOXAPARIN 30 MG/0.3 ML SQ SCH (17:56)
[2018-01-24] MEDS: MIRTAZAPINE 15 MG TAB PO SCH (20:54)
[2018-01-25] MEDS: METHYLPREDNISOLONE 40 MG INJ IV SCH ×2 (00:25→08:15)
[2018-01-25 05:44] LABS: Absolute Lymphocytes (CBC) 0.8 K/uL (0.7-4.9); Absolute Monocytes 0.2 K/uL (0.1-1.3); Basophils % 0.1 % (0-1.3); Hematocrit 35.6 % (36.0-45.0); Lymphocytes % 6.3 % (15.3-44.8); MCV 89.6 fL (80-100); MPV 9.2 fL (7.6-11.3); Monocytes % 1.7 % (3.3-12.3); RBC Red Blood Cell Count 3.97 M/uL (3.86-4.86)
[2018-01-25 05:57] LABS: Potassium 4.9 mmol/L (3.5-5.1)
[2018-01-25] MEDS: ALBUTEROL 2.5 MG/3 ML NEB SOL NEB SCH (07:45)
[2018-01-25] MEDS: ARFORMOTEROL TARTRATE 15 MCG/2 ML VIAL.NEB NEB SCH (07:45)
[2018-01-25] MEDS: CEFTRIAXONE/SWI 1gm 1 GM/10 ML SYR IVP SCH (08:15)
[2018-01-25] MEDS: ASPIRIN EC 81 MG TAB PO SCH (08:16)
[2018-01-25] MEDS: VENLAFAXINE HCL XR 75 MG CAP PO SCH (08:16)
[2018-01-25] MEDS: METOPROLOL TAR 50 MG TAB PO SCH (08:16)
[2018-01-25] MEDS: AMLODIPINE 5 MG TAB PO SCH (08:17)
[2018-01-25 08:21] VITALS: BP 176/79
[2018-01-25] MEDS: CODEINE 30MG/APAP 300MG TAB PO PRN (08:40)
[2018-01-25 08:45] VITALS: TEMP 98.3
[2018-01-25 13:06] VITALS: O2SAT 98
--- NOTE | 2018-01-25 13:31 | PN ---
Date of Progress Note: 01/25/2018 The patient was admitted to Dr. Saldana's service on 01/21/2018 and has been followed by Dr. Hoffman for stable angina and treatment for COPD. She has had a normal echocardiogram 3 months ago. 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 Since she has been treated for her COPD, she is feeling much better . Remains in sinus rhythm. No complaint of chest pain, slightly short of breath. No further cardia c testing recommended. She can go home whenever it is okay with Dr. Saldana. We will see her in the o ffice in the next 2-4 weeks. ARMOND/JEREMIAS Voice ID: [id number] Report ID: [id number]
== END 2018-01-25 12:00 | disposition home or self-care (01) | DRG 191 ==
LOC: ER 13:14 → ERHOLD 15:10 → 2ND 17:46
PROVIDERS: ADMIT Internal Medicine; ATTEND Internal Medicine
DX: J44.1 Chronic obstructive pulmonary disease with (acute) exacerbation (principal); E87.2 Acidosis; J20.9 Acute bronchitis, unspecified; J44.0 Chronic obstructive pulmonary disease with (acute) lower respiratory infection; D72.829 Elevated white blood cell count, unspecified; F17.210 Nicotine dependence, cigarettes, uncomplicated; I25.2 Old myocardial infarction; I10 Essential (primary) hypertension
CPT/HCPCS: 36415; 71045; 76700; 80048; 80076; 81003; 81015; 83605; 83880; 84443; 84484; 85025; 87040; 87493; 93005; 94640; 96374; 99285; G0008; J0696; J1650; J2920; J2930; J7605; Q2035

== ENCOUNTER 2018-03-16 11:07 | Observation (INO) | payer OTHER, MEDICARE ==
--- OUTSIDE RECORDS SUMMARY | 2018-03-16 11:09 | XMS REPORT | Clinical Summary ---
:1935 Author Organization [facility] Address [address] [place] [address] Care Team Providers Name Role Phone Sharpdavid [...] file Plan of Treatment Not on file Results Not on fileafter 03/15/2017 Insurance Payer Benefit Plan / Group Subscriber ID Type Phone Address MEDICARE MEDICARE A B xxxxxxxxxx Medicare MCR SUPPLEMENT/INDIVIDUAL AARP/[facility] xxxxxxxxxxx [address]en (Home) [address] [place] [address] Advance Directives For more information, please contact:[address] [phone] Code Status Date Activated Date Inactivated Comments Full Code 01/09/2017 3:57 AM 01/13/2017 2:09 PM This code status was determined by: Patient
--- OUTSIDE RECORDS SUMMARY | 2018-03-16 11:10 | XMS REPORT ---
:1935 [facility] [place] Dr. Lopez. [address] [place] [address] Care Team Providers Name Role Phone HAILEE DOWELL Unavailable Unavailable Problems This patient has no known problems. Allergies, Adverse Reactions, Alerts This patient has no known allergies or adverse reactions. Medications This patient has no known medications. Results Test Description Test Time Test Comments Text Results Atomic Results Result Comments BLOOD CULTURE 2017-01-15 00:00:00 Test Item Value Reference Range Comments CULTURE (BEAKER) (test iksq=3772) No growth in 5 days BLOOD [id number] 00:00:00 Test Item Value Reference Range Comments CULTURE (BEAKER) (test xhhe=7737) No growth in 5 days CLOSTRIDIUM DIFFICILE TOXIN [id number] 17:09:00 Test Item Value Reference Range Comments CLOSTRIDIUM DIFFICILE TOXIN, PCR (BEAKER) (test Not Detected Not Detected pisf=9188) This qualitative real-time polymerase chain reaction assay [...] a positive result is not recommended.BASIC METABOLIC [id number] 10:06:00 Test Item Value Reference Range Comments SODIUM (BEAKER) (test 138 meq/L 136-145 tjdx=285) POTASSIUM (BEAKER) (test 4.2 meq/L 3.5-5.1 Specimen slightly urrn=666) hemolyzed CHLORIDE (BEAKER) (test 104 meq/L 98-107 brge=421) CO2 (BEAKER) (test 24 meq/L 22-29 aelg=881) BLOOD UREA NITROGEN 26 mg/dL 7-21 (BEAKER) (test vwlj=082) CREATININE (BEAKER) (test 0.94 mg/dL 0.57-1.25 Specimen slightly hezn=735) hemolyzed GLUCOSE RANDOM (BEAKER) 100 mg/dL 70-105 (test ozvy=925) CALCIUM (BEAKER) (test 8.8 mg/dL 8.4-10.2 qeij=463) EGFR (BEAKER) (test 57 mL/min/1.73 sq m ESTIMATED GFR IS NOT vluj=4137) ACCURATE CREATININE CLEARANCE IN PREDICTING GLOMERULAR FILTRATION RATE. ESTIMATED GFR IS NOT APPLICABLE FOR DIALYSIS PATIENTS. CBC W/PLT COUNT & AUTO [id number] 09:48:00 Test Item Value Reference Range Comments WHITE BLOOD CELL COUNT 12.9 K/ L 3.5-10.5 (BEAKER) (test rdru=173) RED BLOOD CELL COUNT (BEAKER) 4.59 M/ L 3.93-5.22 (test lidx=253) HEMOGLOBIN (BEAKER) (test 13.4 GM/DL 11.2-15.7 pxhk=836) HEMATOCRIT (BEAKER) (test 43.1 % 34.1-44.9 xkmm=143) MEAN CORPUSCULAR VOLUME 93.9 fL 79.4-94.8 (BEAKER) (test gfje=282) MEAN CORPUSCULAR HEMOGLOBIN 29.2 pg 25.6-32.2 (BEAKER) (test gmlo=422) MEAN CORPUSCULAR HEMOGLOBIN 31.1 GM/DL 32.2-35.5 CONC (BEAKER) (test ejnr=787) RED CELL DISTRIBUTION WIDTH 12.8 % 11.7-14.4 (BEAKER) (test dnqy=949) PLATELET COUNT (BEAKER) (test 286 K/CU MM 150-450 .Discordant from previous zgou=146) results. Clinical correlation suggested. MEAN PLATELET VOLUME (BEAKER) 10.3 fL 9.4-12.3 (test azxp=249) NUCLEATED RED BLOOD CELLS 0 /100 WBC 0-0 (BEAKER) (test guul=855) NEUTROPHILS RELATIVE PERCENT 70 % (BEAKER) (test hkri=758) LYMPHOCYTES RELATIVE PERCENT 17 % (BEAKER) (test zgoe=237) MONOCYTES RELATIVE PERCENT 8 % (BEAKER) (test fkdj=362) EOSINOPHILS RELATIVE PERCENT 3 % (BEAKER) (test vzpe=956) BASOPHILS RELATIVE PERCENT 1 % (BEAKER) (test xhtw=274) NEUTROPHILS ABSOLUTE COUNT 9.04 K/ L 1.56-6.13 (BEAKER) (test cvdu=369) LYMPHOCYTES ABSOLUTE COUNT 2.22 K/ L 1.18-3.74 (BEAKER) (test eomm=954) MONOCYTES ABSOLUTE COUNT 0.99 K/ L 0.24-0.36 (BEAKER) (test jyuu=626) EOSINOPHILS ABSOLUTE COUNT 0.32 K/ L 0.04-0.36 (BEAKER) (test ieep=102) BASOPHILS ABSOLUTE COUNT 0.15 K/ L 0.01-0.08 (BEAKER) (test lnol=720) IMMATURE 1 % 0-1 GRANULOCYTES-RELATIVE PERCENT (BEAKER) (test iwgm=0804) RAD, FOOT, 2 VIEWS, [id number] 16:52:00Reason for exam:->pain with ambulationFINAL REPORT Radiograph [...] Peterson Verified Date/Time: 01/12/2017 16:52:45 Reading Location: [address] Consult Reading Room T4, [id number] 16:26:00 Test Item Value Reference Range Comments FREE T4 (BEAKER) (test ajjb=656) 1.12 ng/dL 0.70-1.48 TSH/FREE T4 IF [id number] 15:46:00 Test Item Value Reference Range Comments THYROID STIMULATING HORMONE (BEAKER) (test 0.03 uIU/mL 0.35-4.94 ovid=130) BASIC METABOLIC [id number] 15:35:00 Test Item Value Reference Range Comments SODIUM (BEAKER) (test 136 meq/L 136-145 bnno=194) POTASSIUM (BEAKER) (test 4.1 meq/L 3.5-5.1 xtot=507) CHLORIDE (BEAKER) (test 99 meq/L 98-107 bimj=802) CO2 (BEAKER) (test 24 meq/L 22-29 iess=609) BLOOD UREA NITROGEN 32 mg/dL 7-21 (BEAKER) (test ayax=498) CREATININE (BEAKER) (test 1.12 mg/dL 0.57-1.25 uhow=859) GLUCOSE RANDOM (BEAKER) 164 mg/dL 70-105 (test itml=417) CALCIUM (BEAKER) (test 10.2 mg/dL 8.4-10.2 csqu=642) EGFR (BEAKER) (test 46 mL/min/1.73 sq m ESTIMATED GFR IS NOT kwxe=0929) ACCURATE CREATININE CLEARANCE IN PREDICTING GLOMERULAR FILTRATION RATE. ESTIMATED GFR IS NOT APPLICABLE FOR DIALYSIS PATIENTS. CBC W/PLT COUNT & AUTO [id number] 15:06:00 Test Item Value Reference Range Comments WHITE BLOOD CELL COUNT (BEAKER) (test zmps=444) 17.4 K/ L 3.5-10.5 RED BLOOD CELL COUNT (BEAKER) (test apxk=615) 4.93 M/ L 3.93-5.22 HEMOGLOBIN (BEAKER) (test aiin=098) 14.0 GM/DL 11.2-15.7 HEMATOCRIT (BEAKER) (test eane=467) 44.8 % 34.1-44.9 MEAN CORPUSCULAR VOLUME (BEAKER) (test eaiy=402) 90.9 fL 79.4-94.8 MEAN CORPUSCULAR HEMOGLOBIN (BEAKER) (test 28.4 pg 25.6-32.2 oifj=123) MEAN CORPUSCULAR HEMOGLOBIN CONC (BEAKER) (test 31.3 GM/DL 32.2-35.5 dpfz=587) RED CELL DISTRIBUTION WIDTH (BEAKER) (test 12.9 % 11.7-14.4 bbzr=766) PLATELET COUNT (BEAKER) (test xsbd=995) 360 K/CU MM 150-450 MEAN PLATELET VOLUME (BEAKER) (test ctkd=920) 10.5 fL 9.4-12.3 NUCLEATED RED BLOOD CELLS (BEAKER) (test 0 /100 WBC 0-0 bhht=123) NEUTROPHILS RELATIVE PERCENT (BEAKER) (test 82 % rrbf=537) LYMPHOCYTES RELATIVE PERCENT (BEAKER) (test 11 % yfim=624) MONOCYTES RELATIVE PERCENT (BEAKER) (test 4 % gsgz=702) EOSINOPHILS RELATIVE PERCENT (BEAKER) (test 0 % ylmd=866) BASOPHILS RELATIVE PERCENT (BEAKER) (test 1 % ctnw=822) NEUTROPHILS ABSOLUTE COUNT (BEAKER) (test 14.33 K/ L 1.56-6.13 vkyl=073) LYMPHOCYTES ABSOLUTE COUNT (BEAKER) (test 1.97 K/ L 1.18-3.74 atau=907) MONOCYTES ABSOLUTE COUNT (BEAKER) (test 0.71 K/ L 0.24-0.36 qfvn=867) EOSINOPHILS ABSOLUTE COUNT (BEAKER) (test 0.05 K/ L 0.04-0.36 kvrs=616) BASOPHILS ABSOLUTE COUNT (BEAKER) (test 0.16 K/ L 0.01-0.08 pqqa=906) IMMATURE GRANULOCYTES-RELATIVE PERCENT (BEAKER) 1 % 0-1 (test bbwm=6855) URINE [id number] 08:21:00 Test Item Value Reference Range Comments CULTURE (BEAKER) (test dmyb=8421) Amikacin (test code=1) Ampicillin + Sulbactam (test code=6) Aztreonam (test code=32) Cefepime (test code=51) Cefoxitin (test code=68) Ceftazidime (test code=27) Ceftriaxone (test code=52) Ertapenem (test code=38) Gentamicin (test code=18) Levofloxacin (test code=22) Meropenem (test code=34) Nitrofurantoin (test code=23) Piperacillin + Tazobactam (test code=29) Tetracycline (test code=2) Tobramycin (test code=25) Trimethoprim + Sulfamethoxazole (test code=47) CULTURE (BEAKER) (test yksc=5884) >100,000 col/mL Proteus mirabilis <10,000 col/mL skin ranjith<10,000 col/mL gram negative rods of a second typeMR, BRAIN, WITHOUT [id number] 16:03:00Reason for exam:->Ischemic Stroke EvaluationFINAL REPORT MRI [...] [place] [facility] Verified Date/Time: 16:03:04 Reading Location: [address] Neuro Reading Room URINALYSIS W/ [id number] 15:35:00 Test Item Value Reference Range Comments COLOR (BEAKER) (test fots=856) Light Yellow CLARITY (BEAKER) (test shna=063) Hazy SPECIFIC GRAVITY UA (BEAKER) (test szcb=542) 1.010 1.001-1.035 PH UA (BEAKER) (test ulai=783) 8.0 5.0-8.0 PROTEIN UA (BEAKER) (test epux=649) 20 mg/dL Negative GLUCOSE UA (BEAKER) (test jqto=279) Negative Negative KETONES UA (BEAKER) (test awnn=581) Negative Negative BILIRUBIN UA (BEAKER) (test rlbm=869) Negative Negative BLOOD UA (BEAKER) (test lkes=313) Negative Negative NITRITE UA (BEAKER) (test vafi=738) Negative Negative LEUKOCYTE ESTERASE UA (BEAKER) (test kbnf=894) Large Negative UROBILINOGEN UA (BEAKER) (test sjbc=726) 0.2 mg/dL 0.2-1.0 RBC UA (BEAKER) (test ubwl=822) 2 /HPF WBC UA (BEAKER) (test ivum=888) 87 /HPF SQUAMOUS EPITHELIAL (BEAKER) (test xqiv=866) 3 /HPF SOURCE(BEAKER) (test bxhi=5480) Urine, Voided URINALYSIS W/ REFLEX URINE [id number] 15:35:00 Test Item Value Reference Range Comments COLOR (BEAKER) (test rrdx=912) Light Yellow CLARITY (BEAKER) (test dugq=700) Hazy SPECIFIC GRAVITY UA (BEAKER) (test rrur=071) 1.010 1.001-1.035 PH UA (BEAKER) (test ssfx=965) 8.0 5.0-8.0 PROTEIN UA (BEAKER) (test jbdy=955) 20 mg/dL Negative GLUCOSE UA (BEAKER) (test nxmz=019) Negative Negative KETONES UA (BEAKER) (test llul=247) Negative Negative BILIRUBIN UA (BEAKER) (test stsn=274) Negative Negative BLOOD UA (BEAKER) (test crdp=648) Negative Negative NITRITE UA (BEAKER) (test iiql=673) Negative Negative LEUKOCYTE ESTERASE UA (BEAKER) (test gwip=787) Large Negative UROBILINOGEN UA (BEAKER) (test grun=164) 0.2 mg/dL 0.2-1.0 RBC UA (BEAKER) (test gjyi=776) 2 /HPF WBC UA (BEAKER) (test xjnw=403) 87 /HPF SQUAMOUS EPITHELIAL (BEAKER) (test pusz=849) 3 /HPF SOURCE(BEAKER) (test ssgy=8362) Urine, Voided [id number] 14:30:00 Test Item Value Reference Range Comments RPR SCREEN (BEAKER) (test ljur=389) Nonreactive Nonreactive HEMOGLOBIN [id number] 10:58:00 Test Item Value Reference Range Comments HEMOGLOBIN A1C (BEAKER) (test uxyu=376) 5.8 % 4.3-6.1 SEDIMENTATION [id number] 10:44:00 Test Item Value Reference Range Comments SEDIMENTATION RATE, ERYTHROCYTE (BEAKER) (test 52 mm/HR 0-40 iogg=410) T4, [id number] 09:16:00 Test Item Value Reference Range Comments FREE T4 (BEAKER) (test btic=828) 0.94 ng/dL 0.70-1.48 TSH/FREE T4 IF [id number] 08:42:00 Test Item Value Reference Range Comments THYROID STIMULATING HORMONE (BEAKER) (test 0.05 uIU/mL 0.35-4.94 hgar=418) VITAMIN B12 AND [id number] 08:37:00 Test Item Value Reference Range Comments VITAMIN B12 (BEAKER) (test sohz=121) 829 pg/mL 213-816 FOLATE (BEAKER) (test usyi=351) 15.9 ng/mL >=7.0 [id number] 08:36:00 Test Item Value Reference Range Comments HOMOCYSTEINE (BEAKER) (test hfsj=613) 10.2 umol/L 5.1-15.4 LIPID [id number] 08:26:00 Test Item Value Reference Range Comments TRIGLYCERIDES (BEAKER) (test bqfe=863) 86 mg/dL CHOLESTEROL (BEAKER) (test knbz=102) 194 mg/dL HDL CHOLESTEROL (BEAKER) (test kobn=408) 66 mg/dL LDL CHOLESTEROL CALCULATED (BEAKER) (test 111 mg/dL idzv=107) Triglyceride Reference Range: Low Risk <150 Borderline 150- 199 High Risk 200-499 Very High Risk >=500Cholesterol Reference Range: Low Risk <200 Borderline 200-239 High Risk > 240HDL Cholesterol Reference Range: Low Risk >=60 High Risk <40LDL Cholesterol Reference Range: Optimal <100 Near Optimal 100-129 Borderline 130-159 High 160-189 Very High >=190 FastingBASIC METABOLIC [id number] 08:26:00 Test Item Value Reference Range Comments SODIUM (BEAKER) (test 136 meq/L 136-145 skqt=102) POTASSIUM (BEAKER) (test 4.7 meq/L 3.5-5.1 yezx=207) CHLORIDE (BEAKER) (test 99 meq/L 98-107 fisc=376) CO2 (BEAKER) (test 24 meq/L 22-29 royt=999) BLOOD UREA NITROGEN 27 mg/dL 7-21 (BEAKER) (test cdet=602) CREATININE (BEAKER) (test 1.04 mg/dL 0.57-1.25 gtyo=061) GLUCOSE RANDOM (BEAKER) 133 mg/dL 70-105 (test jfym=175) CALCIUM (BEAKER) (test 8.8 mg/dL 8.4-10.2 nslb=497) EGFR (BEAKER) (test 51 mL/min/1.73 sq m ESTIMATED GFR IS NOT xeom=9182) ACCURATE CREATININE CLEARANCE IN PREDICTING GLOMERULAR FILTRATION RATE. ESTIMATED GFR IS NOT APPLICABLE FOR DIALYSIS PATIENTS. FastingHEPATIC FUNCTION [id number] 08:26:00 Test Item Value Reference Range Comments TOTAL PROTEIN (BEAKER) (test psuv=417) 6.8 gm/dL 6.0-8.3 ALBUMIN (BEAKER) (test jpct=7644) 3.4 g/dL 3.5-5.0 BILIRUBIN TOTAL (BEAKER) (test xpqm=243) 0.6 mg/dL 0.2-1.2 BILIRUBIN DIRECT (BEAKER) (test wggf=484) 0.2 mg/dL 0.1-0.5 ALKALINE PHOSPHATASE (BEAKER) (test qzfh=301) 67 U/L 40-150 AST (SGOT) (BEAKER) (test crza=923) 16 U/L 5-34 ALT (SGPT) (BEAKER) (test gylw=978) 11 U/L 6-55 FastingCREATINE KINASE (CK), TOTAL AND [id number] 08:26:00 Test Item Value Reference Range Comments CREATINE KINASE TOTAL (BEAKER) (test nqtv=703) 30 U/L 29-200 CREATINE KINASE-MB (BEAKER) (test gdkn=396) 0.8 ng/mL 0.0-6.6 CREATINE KINASE-MB INDEX (BEAKER) (test ejtg=155) 2.7 % CK-MB Reference Range:<6.7 Normal6.7-10.0 Borderline>10.0 AbnormalFastingFastingC-REACTIVE [id number] 08:26:00 Test Item Value Reference Range Comments C-REACTIVE PROTEIN (BEAKER) (test rvyy=810) 1.74 mg/dL 0.00-0.50 FastingCBC W/PLT COUNT & AUTO [id number] 07:57:00 Test Item Value Reference Range Comments WHITE BLOOD CELL COUNT (BEAKER) (test eqzh=624) 16.6 K/ L 3.5-10.5 RED BLOOD CELL COUNT (BEAKER) (test knmk=441) 4.21 M/ L 3.93-5.22 HEMOGLOBIN (BEAKER) (test icez=872) 12.3 GM/DL 11.2-15.7 HEMATOCRIT (BEAKER) (test cmcl=084) 38.4 % 34.1-44.9 MEAN CORPUSCULAR VOLUME (BEAKER) (test ejis=757) 91.2 fL 79.4-94.8 MEAN CORPUSCULAR HEMOGLOBIN (BEAKER) (test 29.2 pg 25.6-32.2 frnk=944) MEAN CORPUSCULAR HEMOGLOBIN CONC (BEAKER) (test 32.0 GM/DL 32.2-35.5 ckyk=865) RED CELL DISTRIBUTION WIDTH (BEAKER) (test 12.9 % 11.7-14.4 heaj=717) PLATELET COUNT (BEAKER) (test rjhh=443) 296 K/CU MM 150-450 MEAN PLATELET VOLUME (BEAKER) (test mgni=997) 10.3 fL 9.4-12.3 NUCLEATED RED BLOOD CELLS (BEAKER) (test 0 /100 WBC 0-0 zgle=384) NEUTROPHILS RELATIVE PERCENT (BEAKER) (test 78 % vdkq=009) LYMPHOCYTES RELATIVE PERCENT (BEAKER) (test 15 % azyu=304) MONOCYTES RELATIVE PERCENT (BEAKER) (test 5 % odxj=642) EOSINOPHILS RELATIVE PERCENT (BEAKER) (test 1 % bsbc=641) BASOPHILS RELATIVE PERCENT (BEAKER) (test 1 % tdrw=799) NEUTROPHILS ABSOLUTE COUNT (BEAKER) (test 12.92 K/ L 1.56-6.13 zmhc=602) LYMPHOCYTES ABSOLUTE COUNT (BEAKER) (test 2.40 K/ L 1.18-3.74 enft=635) MONOCYTES ABSOLUTE COUNT (BEAKER) (test 0.90 K/ L 0.24-0.36 gzwi=474) EOSINOPHILS ABSOLUTE COUNT (BEAKER) (test 0.08 K/ L 0.04-0.36 pdgn=181) BASOPHILS ABSOLUTE COUNT (BEAKER) (test 0.11 K/ L 0.01-0.08 vldc=614) IMMATURE GRANULOCYTES-RELATIVE PERCENT (BEAKER) 1 % 0-1 (test rdxz=9757) TROPONIN [id number] 07:47:00 Test Item Value Reference Range Comments TROPONIN I (BEAKER) (test onkc=707) 0.01 ng/mL 0.00-0.03 Troponin I (TnI) levels [...]
[2018-03-16 11:53] LABS: Absolute Lymphocytes (CBC) 1.2 K/uL (0.7-4.9); Absolute Monocytes 0.6 K/uL (0.1-1.3); Absolute Neutrophil 10.2 K/uL (1.8-8.0); Basophils % 0.9 % (0-1.3); Eosinophils % 1.7 % (0-4.4); Hematocrit 38.3 % (36.0-45.0); Lymphocytes % 9.6 % (15.3-44.8); MPV 9.5 fL (7.6-11.3); Monocytes % 4.7 % (3.3-12.3); RBC Red Blood Cell Count 4.21 M/uL (3.86-4.86)
[2018-03-16 11:54] LABS: Protime INR 1.1
--- NOTE | 2018-03-16 12:06 | RAD REPORT ---
EXAM DESCRIPTION: RAD - Chest Single View - 03/16/2018 11:55 am CLINICAL HISTORY: DYSPNEA Chest pain. COMPARISON: Chest Single View dated 01/21/2018; Chest Single View dated 10/18/2017; Chest Single View dated 09/20/2017; Chest Single View dated 06/07/2017 FINDINGS: Portable technique limits examination quality. Ill-defined opacities are present in both lung bases likely representing interstitial infiltrate. The heart is mildly prominent. No displaced fractures. IMPRESSION: Ill-defined opacities in both lung bases likely represent interstitial pneumonitis.
[2018-03-16 12:10] LABS: Albumin 3.3 g/dL (3.4-5.0); Bilirubin Direct 0.1 mg/dL (0-0.2); Bilirubin Total 0.3 mg/dL (0.2-1.0); Magnesium 2.3 mg/dL (1.8-2.4); Potassium 4.6 mmol/L (3.5-5.1); Protein, Total 7.1 g/dL (6.4-8.2); Troponin (Emerg Dept Use Only) 0.18 ng/mL (0.0-0.045)
--- NOTE | 2018-03-16 14:36 | EKG ---
Test Date: 2018-03-16 Test Time: 11:13:53 Medical Device Sales: [facility] MEASUREMENT RESULTS: Intervals: Rate: 110 [place]: 156 QRSD: 76 QT: 342 QTc: 462 [place]: P: 65 [place]: 156 QRS: 3 T: 49 INTERPRETIVE STATEMENTS: Sinus tachycardia Possible Anterior infarct, age undetermined Abnormal ECG Compared to ECG 01/21/2018 13:31:14 Myocardial infarct finding now present Sinus rhythm no longer present Electronically Signed On 03-16-18 14:35:19 [employer] by Rashad Christopher
[2018-03-16] MEDS ORDERED: ONDANSETRON 4 MG/2 ML VIAL IV PRN (14:41)
[2018-03-16] MEDS ORDERED: ASPIRIN 325 MG TAB ONE (14:48)
[2018-03-16] MEDS ORDERED: METHYLPREDNISOLONE 125 MG INJ ONE (14:48)
--- NOTE | 2018-03-16 15:11 | EDPHYS ---
Physician Documentation [facility] Name: Elida Pradhan Age: 82 yrs Sex: Female : 1935 Arrival Date: 03/16/2018 Time: 11:07 Bed 7 Private MD: ED Physician Geovani Medel HPI: 03/16 15:21 This 82 yrs old Female presents to ER via EMS with complaints of Shortness Of kdr Breath. 15:21 The patient has shortness of breath at rest, with light activity. Onset: The kdr symptoms/episode began/occurred yesterday. Duration: The symptoms are continuous, and are steadily getting worse. The patient's shortness of breath is aggravated by coughing, exertion, light activity. Associated signs and symptoms: Pertinent positives: Pertinent negatives: non-productive cough, productive cough, diaphoresis, dizziness, fever, hemoptysis, loss of consciousness, nausea, numbness in extremities, visual changes, vomiting. Severity of symptoms: At their worst the symptoms were moderate in the emergency department the symptoms have improved mildly. The patient has not experienced similar symptoms in the past. The patient has been recently seen by a physician: the patient's primary care provider. Historical: - Allergies: 11:11 Levaquin; hj 11:11 Cipro; hj - Home Meds: 11:21 spironolactone oral 1 tab once daily [Active]; Ursodiol Oral [Active]; Mirtazapine Oral hj [Active]; Nitroglycerin Oral [Active]; Tylenol #3 Oral [Active]; - PMHx: 11:11 CHF; COPD; DYSPHAGIA; Hypertension; Myocardial infarction; hj - PSHx: 11:21 None; hj - Immunization history:: Adult Immunizations unknown. - Social history:: Smoking status: Patient/guardian denies using tobacco, Patient/guardian denies using alcohol. - Ebola Screening: : Patient negative for fever greater than or equal to 101.5 degrees Fahrenheit, and additional compatible Ebola Virus Disease symptoms Patient denies exposure to infectious person Patient denies travel to an Ebola-affected area in the 21 days before illness onset. ROS: 15:21 Constitutional: Negative for fever, chills, and weight loss, Eyes: Negative for injury, kdr pain, redness, and discharge, ENT: Negative for injury, pain, and discharge, Neck: Negative for injury, pain, and swelling, Cardiovascular: Negative for chest pain, palpitations, and edema, Abdomen/GI: Negative for abdominal pain, nausea, vomiting, diarrhea, and constipation, Back: Negative for injury and pain, : Negative for injury, bleeding, discharge, and swelling, MS/Extremity: Negative for injury and deformity, Skin: Negative for injury, rash, and discoloration, Neuro: Negative for headache, weakness, numbness, tingling, and seizure activity. Psych: Negative for depression, anxiety, suicide ideation, homicidal ideation, and hallucinations, Allergy/Immunology: Negative for hives, rash, and allergies, Endocrine: Negative for neck swelling, polydipsia, polyuria, polyphagia, and marked weight changes, Hematologic/Lymphatic: Negative for swollen nodes, abnormal bleeding, and unusual bruising. 15:21 Respiratory: Positive for shortness of breath, Negative for dyspnea on exertion, shortness of breath, wheezing. 15:21 MS/extremity: Positive for swelling, tenderness, Bilateral lower extremity selling - chronic, Negative for Exam: 15:21 Constitutional: This is a well developed, well nourished patient who is awake, alert, kdr and in no acute distress. Head/Face: Normocephalic, atraumatic. Eyes: Pupils equal round and reactive to light, extra-ocular motions intact. Lids and lashes normal. Conjunctiva and sclera are non-icteric and not injected. Cornea within normal limits. Periorbital areas with no swelling, redness, or edema. Neck: Trachea midline, no thyromegaly or masses palpated, and no cervical lymphadenopathy. Supple, full range of motion without nuchal rigidity, or vertebral point tenderness. No Meningismus. Chest/axilla: Normal chest wall appearance and motion. Nontender with no deformity. No lesions are appreciated. Respiratory: Lungs have equal breath sounds bilaterally, clear to auscultation and percussion. No rales, rhonchi or wheezes noted. No increased work of breathing, no retractions or nasal flaring. Abdomen/GI: Soft, non-tender, with normal bowel sounds. No distension or tympany. No guarding or rebound. No evidence of tenderness throughout. Back: No spinal tenderness. No costovertebral tenderness. Full range of motion. Skin: Warm, dry with normal turgor. Normal color with no rashes, no lesions, and no evidence of cellulitis. MS/ Extremity: Pulses equal, no cyanosis. Neurovascular intact. Full, normal range of motion. Neuro: Awake and alert, GCS 15, oriented to person, place, time, and situation. Cranial nerves II-XII grossly intact. Motor strength 5/5 in all extremities. Sensory grossly intact. Cerebellar exam normal. Normal gait. Psych: Awake, alert, with orientation to person, place and time. Behavior, mood, and affect are within normal limits. 15:21 Cardiovascular: Edema: 2+ edema to level of left midcalf, left ankle, left foot, left toes, right midcalf, right ankle, right foot and right toes, pedal edema, that is moderate, that is marked, ankle edema, that is moderate, that is marked. Vital Signs: 11:11 BP 151 / 92; Pulse 109; Resp 20; Temp 98.8(O); Pulse Ox 100% on Nebulizer Mask; Weight hj 94.8 kg; Height 5 ft. 1 in. (154.94 cm); 12:40 BP 119 / 73; Pulse 104; Resp 20; Pulse Ox 93% ; aj1 13:46 BP 109 / 57; Pulse 95; Resp 20; Pulse Ox 97% ; aj1 14:23 BP 113 / 57; Pulse 88; Resp 18; Pulse Ox 98% on R/A; aj1 15:20 BP 111 / 52; Pulse 87; Resp 18; Pulse Ox 98% ; aj1 16:25 BP 143 / 69; Pulse 90; Resp 18; Pulse Ox 97% on R/A; aj1 11:11 Body Mass Index 39.49 (94.80 kg, 154.94 cm) MDM: 15:11 Patient medically screened. kdr 15:21 Data reviewed: vital signs, nurses notes, lab test result(s), EKG, radiologic studies. kdr Counseling: I had a detailed discussion with the patient and/or guardian regarding: the historical points, exam findings, and any diagnostic results supporting the discharge/admit diagnosis, lab results, radiology results, the need for further work-up and treatment in the hospital. 03/16 11:24 Order name: Basic Metabolic Panel; Complete Time: 14:25 kdr 03/16 11:24 Order name: CBC with Diff; Complete Time: 14:25 kdr 03/16 11:24 Order name: LFT's; Complete Time: 14: kdr 03/16 11:24 Order name: Magnesium; Complete Time: 14: kdr 03/16 11:24 Order name: NT PRO-BNP; Complete Time: 14: kdr 03/16 11:24 Order name: PT-INR; Complete Time: 14: kdr 03/16 11:24 Order name: Troponin (emerg Dept Use Only); Complete Time: 14: kdr 03/16 14:49 Order name: Basic Metabolic Panel [facility] 03/16 14:49 Order name: Basic Metabolic Panel [facility] 03/16 14:49 Order name: CBC with Automated Diff [facility] 03/16 14:49 Order name: CBC with Automated Diff [facility] 03/16 14:49 Order name: Troponin I [facility] 03/16 14:49 Order name: Troponin I [facility] 03/16 14:49 Order name: Troponin I [facility] 03/16 11:24 Order name: XRAY Chest (1 view); Complete Time: 14: [facility] 03/16 11:24 Order name: EKG; Complete Time: 11: [facility] 03/16 11:24 Order name: Cardiac monitoring; Complete Time: 11: kdr 03/16 11:24 Order name: EKG - Nurse/Tech; Complete Time: 11: [facility] 03/16 11:24 Order name: IV Saline Lock; Complete Time: 11: [facility] 03/16 11:24 Order name: Labs collected and sent; Complete Time: 11: [facility] 03/16 11:24 Order name: O2 Per Protocol; Complete Time: 11: [facility] 03/16 11:24 Order name: O2 Sat Monitoring; Complete Time: 11: [facility] 03/16 14:49 Order name: CONS Physician Consult [facility] 03/16 14:49 Order name: Regular [facility] 03/16 14:49 Order name: EKG Electrocardiogram [facility] 03/16 14:49 Order name: EKG Electrocardiogram [facility] 03/16 14:49 Order name: EKG Electrocardiogram [facility] 03/16 14:49 Order name: EKG Electrocardiogram ED[facility] Administered Medications: 14:44 Drug: Aspirin 325 mg Route: PO; aj1 14:44 Drug: SOLU-Medrol 125 mg Route: IVP; Site: right antecubital; aj1 Disposition: 03/16/18 15:11 Hospitalization ordered by Slade Saldana for Observation. Preliminary diagnosis are Shortness of breath, Mild CHF. - Bed requested for Telemetry/MedSurg (observation). - Status is Observation. aj1 - Condition is Fair. - Problem is new. - Symptoms have improved. UTI on Admission? No Signatures: Dispatcher [employer] EDMS Swati Otto Jada Avila RN RN aj1 Geovani Medel MD MD [facility] Blaise Weathers RN RN hj Corrections: (The following items were deleted from the chart) 15:19 15:11 Hospitalization Ordered by Slade Saldana MD for Observation. Preliminary diagnosis bd is Shortness of breath; Mild CHF. Bed requested for Telemetry/MedSurg (observation). Status is Observation. Condition is Fair. Problem is new. Symptoms have improved. UTI on Admission? No. kdr 16:58 15:19 03/16/2018 15:11 Hospitalization Ordered by Slade Saldana MD for Observation. aj1 Preliminary diagnosis is Shortness of breath; Mild CHF. Bed requested for Telemetry/MedSurg (observation). Status is Observation. Condition is Fair. Problem is new. Symptoms have improved. UTI on Admission? No. bd
--- NOTE | 2018-03-16 15:11 | ER ---
Nurse's Notes [facility] Name: Elida Pradhan Age: 82 yrs Sex: Female : 1935 Arrival Date: 03/16/2018 Time: 11:07 Bed 7 Private MD: Diagnosis: Shortness of breath;Mild CHF Presentation: 03/16 11:07 Presenting complaint: EMS states: from home, was complaining of SOB since yesterday, at around 6:45 am today, reports another SOB episode, denies fever and chills; hx of COPD; BP- 188/100; HR- 115; O2 sat RA- 96%; A/A breathing given x 1 by EMS;. Transition of care: patient was not received from another setting of care. Onset of symptoms was March 16, 2018. Risk Assessment: Do you want to hurt yourself or someone else? Patient reports no desire to harm self or others. Initial Sepsis Screen: Does the patient meet any 2 criteria? RR > 20 per min. HR > 90 bpm. Yes Does the patient have a suspected source of infection? Yes: Productive cough/pneumonia. Care prior to arrival: None. 11:07 Method Of Arrival: EMS: [facility] 11:07 Acuity: TALYA 3 Triage Assessment: 11:17 General: Appears in no apparent distress. uncomfortable, Behavior is calm, cooperative, hj appropriate for age. Respiratory: Reports shortness of breath Onset: The symptoms/episode began/occurred gradually, the patient has mild shortness of breath. Historical: - Allergies: 11:11 Levaquin; 11:11 Cipro; - Home Meds: 11:21 spironolactone oral 1 tab once daily [Active]; Ursodiol Oral [Active]; Mirtazapine Oral hj [Active]; Nitroglycerin Oral [Active]; Tylenol #3 Oral [Active]; - PMHx: 11:11 CHF; COPD; DYSPHAGIA; Hypertension; Myocardial infarction; hj - PSHx: 11:21 None; hj - Immunization history:: Adult Immunizations unknown. - Social history:: Smoking status: Patient/guardian denies using tobacco, Patient/guardian denies using alcohol. - Ebola Screening: : Patient negative for fever greater than or equal to 101.5 degrees Fahrenheit, and additional compatible Ebola Virus Disease symptoms Patient denies exposure to infectious person Patient denies travel to an Ebola-affected area in the 21 days before illness onset. Screenin:16 Abuse screen: Denies threats or abuse. Denies injuries from another. Nutritional hj screening: No deficits noted. Tuberculosis screening: No symptoms or risk factors identified. Fall Risk None identified. Assessment: 11:17 Pain: Denies pain. Cardiovascular: Rhythm is regular. Respiratory: Airway is patent hj Respiratory effort is even, unlabored, Respiratory pattern is regular, symmetrical, Breath sounds are clear. 12:16 General: Appears in no apparent distress. comfortable, Behavior is calm, cooperative, aj1 appropriate for age. Pain: Denies pain. Neuro: Level of Consciousness is awake, alert, obeys commands. Cardiovascular: Patient's skin is warm and dry. Respiratory: Reports shortness of breath Airway is patent Respiratory effort is even, unlabored, Respiratory pattern is regular, symmetrical, Breath sounds with wheezes bilaterally. GI: No signs and/or symptoms were reported involving the gastrointestinal system. : No signs and/or symptoms were reported regarding the genitourinary system. EENT: No signs and/or symptoms were reported regarding the EENT system. Derm: No signs and/or symptoms reported regarding the dermatologic system. Skin is pink, warm \T\ dry. normal. Musculoskeletal: No signs and/or symptoms reported regarding the musculoskeletal system. Circulation, motion, and sensation intact. 13:46 Reassessment: Patient appears in no apparent distress at this time. No changes from aj1 previously documented assessment. Patient and/or family updated on plan of care and expected duration. Pain level reassessed. Patient is alert, oriented x 3, equal unlabored respirations, skin warm/dry/pink. 14:22 Reassessment: Patient appears in no apparent distress at this time. No changes from aj1 previously documented assessment. Patient and/or family updated on plan of care and expected duration. Pain level reassessed. Patient is alert, oriented x 3, equal unlabored respirations, skin warm/dry/pink. 15:20 Reassessment: Patient and/or family updated on plan of care and expected duration. Pain aj1 level reassessed. General: Appears in no apparent distress. comfortable. Pain: Denies pain. Neuro: Level of Consciousness is awake, alert, obeys commands. Cardiovascular: Patient's skin is warm and dry. Respiratory: Airway is patent Respiratory effort is even, unlabored, Respiratory pattern is regular, symmetrical. GI: No signs and/or symptoms were reported involving the gastrointestinal system. Derm: No signs and/or symptoms reported regarding the dermatologic system. Skin is pink, warm \T\ dry. normal. Musculoskeletal: No signs and/or symptoms reported regarding the musculoskeletal system. Circulation, motion, and sensation intact. 16:15 Reassessment: Attempted to call report to 4th floor, [place], receiving nurse unable to aj take report at this time. 16:23 Reassessment: Patient appears in no apparent distress at this time. No changes from aj1 previously documented assessment. Patient and/or family updated on plan of care and expected duration. Pain level reassessed. Patient is alert, oriented x 3, equal unlabored respirations, skin warm/dry/pink. Vital Signs: 11:11 BP 151 / 92; Pulse 109; Resp 20; Temp 98.8(O); Pulse Ox 100% on Nebulizer Mask; Weight hj 94.8 kg; Height 5 ft. 1 in. (154.94 cm); 12:40 BP 119 / 73; Pulse 104; Resp 20; Pulse Ox 93% ; aj1 13:46 BP 109 / 57; Pulse 95; Resp 20; Pulse Ox 97% ; aj1 14:23 BP 113 / 57; Pulse 88; Resp 18; Pulse Ox 98% on R/A; aj1 15:20 BP 111 / 52; Pulse 87; Resp 18; Pulse Ox 98% ; aj1 16:25 BP 143 / 69; Pulse 90; Resp 18; Pulse Ox 97% on R/A; aj1 11:11 Body Mass Index 39.49 (94.80 kg, 154.94 cm) ED Course: 11:07 Patient arrived in ED. hj 11:10 Triage completed. hj 11:12 Geovani Medel MD is Attending Physician. kdr 11:17 Arm band placed on right wrist. hj 11:18 Patient has correct armband on for positive identification. Placed in gown. Bed in low hj position. Call light in reach. Side rails up X 1. 11:19 EKG done, by information technology assistant. reviewed by Geovani Medel MD. at1 11:35 Initial lab(s) drawn, by or, sent to lab. Inserted saline lock: 22 gauge in right hj antecubital area, using aseptic technique. Blood collected. 11:55 X-ray completed. Portable x-ray completed in exam room. Patient tolerated procedure ls3 well. 11:55 XRAY Chest (1 view) In Process Unspecified. EDMS 12:00 Report received from HARSHAL Welsh. aj1 12:01 Jada Phelps RN is Primary Nurse. aj1 12:16 No provider procedures requiring assistance completed. aj1 15:10 Slade Saldana MD is Hospitalizing Provider. kdr 16:01 Repeat lab(s) drawn. by or, sent to lab. 3 16:33 Report given to HARSHAL Daniels on 4th floor. aj1 16:33 Patient admitted, IV remains in place. aj1 Administered Medications: 14:44 Drug: Aspirin 325 mg Route: PO; aj1 14:44 Drug: SOLU-Medrol 125 mg Route: IVP; Site: right antecubital; aj1 Outcome: 15:11 Decision to Hospitalize by Provider. kdr 16:57 Admitted to Tele accompanied by tech, via wheelchair. aj1 16:57 Condition: stable 16:57 Discharge instructions given to patient, Instructed on the need for admit, Demonstrated understanding of instructions. 16:58 Patient left the ED. aj1 Signatures: Dispatcher [employer] EDOK Jada Phelps RN RN aj1 Geovani Medel MD MD kdr Gonzales, Amanda, pump oiler EKG Tat1 Blaise Weathers RN RN Joy Arredondo 3 Danielle Null ls3
[2018-03-16 17:43] VITALS: BMI 34.0
[2018-03-16] MEDS: ACETAMINOPHEN 500 MG TAB PO PRN (19:19)
[2018-03-16] MEDS: LEVALBUTEROL 1.25 MG/3 ML NEB NEB PRN (19:26)
--- NOTE | 2018-03-16 21:45 | P.HP ---
Certification for Inpatient Patient admitted to: Observation With expected LOS: <2 Midnights Practitioner: I am a practitioner with admitting privileges, knowledge of patient current condition, hospital course, and medical plan of care. Services: Services provided to patient in accordance with Admission requirements found in Title 42 Section 412.3 of the Code of Federal Regulations Patient History Date of Service: 03/16/18 Reason for admission: SHORT OF BREATH History of Present Illness: MR. FOWLER HAS SEVERE COPD, HYPERTHYROIDISM, ANXIETY, INSOMNIA, DEPRESSION AND ONE MORE TIME SHE COMES FOR COPD EXACERBATION FOR 5 DAYS. SHE HAS ALL APPROPRIATE MEDICATIONS FOR COPD. Allergies ciprofloxacin Adverse Reaction (Verified 01/21/18 18:54) Nausea/Vomiting levofloxacin [From Levaquin] Adverse Reaction (Verified 01/21/18 18:54) Nausea/Vomiting Home Medications: Diazepam [Valium] 2.5 mg PO BEDTIME PRN 09/20/17 Methimazole [Tapazole] 10 mg PO TID 09/20/17 Metoprolol Tartrate [Lopressor] 25 mg PO BID 09/20/17 Mirtazapine [Remeron*] 15 mg PO BEDTIME 09/20/17 Spironolact/Hydrochlorothiazid [Aldactazide 25-25 Tablet] 1 each PO DAILY Venlafaxine HCl [Venlafaxine HCl ER] 150 mg PO DAILY 09/20/17 Amlodipine [Norvasc*] 5 mg PO DAILY #30 tab 09/24/17 Albuterol Sulfate [Proair Hfa] 2 puff IN QID 10/18/17 Codeine/APAP [Tylenol #3*] 1 tab PO BIDP PRN 10/18/17 Umeclidinium Brm/Vilanterol Tr [Anoro Ellipta 62.5-25 Mcg INH] 1 each IH DAILY 10/18/17 predniSONE [Prednisone*] 20 mg PO DAILY #30 tab 10/22/17 ARIPiprazole [Abilify] 5 mg PO DAILY #30 tab 01/25/18 Amox/Clavulanate [Augmentin 875-125 Tab] 875 mg PO BID #10 tab 01/25/18 - Past Medical/Surgical History Has patient received pneumonia vaccine in the past: Yes Diabetic: No -: HTN -: AK -: COPD -: childhood asthma -: dysphagia -: Gall bladder stones -: tonsilectomy @ 8 yrs old - Family History Father -: Kidney disease Notes: Bryte's disease Mother -: Stroke Sister -: Hypertension, Kidney disease Brother -: Cancer Notes: cancer of esophagus and colon cancer - Social History Smoking Status: Former smoker Alcohol use: No CD- Drugs: No Caffeine use: Yes Review of Systems 10-point ROS is otherwise unremarkable General: Weakness, Malaise Respiratory: Shortness of Breath Physical Examination - Vital Signs Temperature: 98.7 F Blood Pressure: 126/63 Pulse: 94 Respirations: 18 Pulse Ox (%): 93 - Physical Exam General: Alert, Mild distress, Moderate distress, Obese HEENT: Atraumatic, PERRLA, Mucous membr. moist/pink, EOMI, Sclerae nonicteric Neck: Supple, 2+ carotid pulse no bruit, No LAD, Without JVD or thyroid abnormality Respiratory: Diminished Cardiovascular: Regular rate/rhythm, Normal S1 S2 Gastrointestinal: Normal bowel sounds, No tenderness Musculoskeletal: No tenderness Integumentary: No rashes Neurological: Normal gait, Normal speech, Normal strength at 5/5 x4 extr, Normal tone, Normal affect Lymphatics: No axilla or inguinal lymphadenopathy - Studies Laboratory Data (last 24 hrs) 03/16/18 11:35: PT 13.0 H, INR 1.10 03/16/18 11:35: WBC 12.3 H, Hgb 12.8, Hct 38.3, Plt Count 237 03/16/18 11:35: Sodium 141, Potassium 4.6, BUN 25 H, Creatinine 1.22, Glucose 220 H, Magnesium 2.3, Total Bilirubin 0.3, AST 17, ALT 20, Alkaline Phosphatase 79 Assessment and Plan - Problems (Diagnosis) (1) Elevated troponin Current Visit: Yes Status: Acute Plan: STRAIN TO HEART FROM COPD EXACERBATION. SHE IS A HIGH RISK CANDIDATE FOR CAD WITH SMOKING HISTORY AND AGE. SHE IS A POOR CANDIDATE FOR INVASIVE CARDIAC TESTING. (2) COPD exacerbation Onset Date: 07/09/16 Current Visit: No Status: Acute Plan: IV SOLUMEDROL NEBULIZERS RX NO SIGNS OF INFECTION BY SYMPTOMS OR CXR. - Advance Directives Does patient have a Living Will: Yes Does patient have a Durable POA for Healthcare: Yes
[2018-03-16] MEDS: DIAZEPAM 5 MG TABLET PO PRN (23:22)
[2018-03-16] MEDS: METHYLPREDNISOLONE 40 MG INJ IV SCH (23:26)
[2018-03-17] MEDS: LEVALBUTEROL 1.25 MG/3 ML NEB NEB PRN ×2 (00:40→05:00)
[2018-03-17] MEDS: METHYLPREDNISOLONE 40 MG INJ IV SCH ×4 (05:24→23:28)
[2018-03-17 05:33] LABS: Urine Appearance CLEAR; Urine Bilirubin NEGATIVE (NEG); Urine Blood NEGATIVE (NEG); Urine Color YELLOW; Urine Glucose NEGATIVE (NEG); Urine Protein NEGATIVE (NEG); Urine Urobilinogen 0.2 mg/dL (0.2-1.0); Urine pH 6.5 (5.0-7.0)
[2018-03-17 05:37] LABS: Urine Microscopic Reflex NO UMIC
[2018-03-17] MEDS: ACETAMINOPHEN 500 MG TAB PO PRN ×2 (06:23→20:17)
[2018-03-17 06:43] LABS: Absolute Lymphocytes (CBC) 0.9 K/uL (0.7-4.9); Absolute Monocytes 0.1 K/uL (0.1-1.3); Absolute Neutrophil 10.7 K/uL (1.8-8.0); Basophils % 0.1 % (0-1.3); Hematocrit 36.2 % (36.0-45.0); Lymphocytes % 7.9 % (15.3-44.8); MPV 9.8 fL (7.6-11.3); Monocytes % 0.8 % (3.3-12.3); RBC Red Blood Cell Count 4.01 M/uL (3.86-4.86)
[2018-03-17 06:48] LABS: Potassium 4.5 mmol/L (3.5-5.1)
[2018-03-17 08:03] LABS: Blood Morphology Comment NOT SEEN (NOT SEEN); Platelet Estimate ADEQ; Urine White Blood Cell Casts OK
[2018-03-17] MEDS ORDERED: CODEINE 30MG/APAP 300MG TAB PO ONE (08:21)
[2018-03-17] MEDS ORDERED: predniSONE 20 MG TAB PO SCH (09:00)
[2018-03-17] MEDS: VENLAFAXINE HCL XR 75 MG CAP PO SCH (09:14)
[2018-03-17] MEDS: METOPROLOL TAR 50 MG TAB PO SCH ×2 (09:14→20:17)
[2018-03-17] MEDS: ASPIRIN EC 81 MG TAB PO SCH (09:15)
[2018-03-17] MEDS: AMLODIPINE 5 MG TAB PO SCH (09:15)
[2018-03-17] MEDS: ARIPiprazole 5 MG TAB PO SCH (09:15)
[2018-03-17] MEDS: AZITHROMYCIN IV 500 MG in NA CHLORIDE 0.9% 250 ML IVPB SCH (09:16)
[2018-03-17] MEDS: LEVALBUTEROL 1.25 MG/3 ML NEB NEB SCH ×2 (12:54→19:55)
--- NOTE | 2018-03-17 13:05 | P.PN ---
Subjective Date of Service: 03/17/18 Chief Complaint: SHORT OF BREATH Subjective: Improving (BUT AT 12 NOON SHE CALLED THAT SHE IS NOT WELL AND WANTS TO STAY LONGER.) Review of Systems 10-point ROS is otherwise unremarkable General: Weakness, Malaise Respiratory: Shortness of Breath Physical Examination - Vital Signs Temperature: 97.6 F Blood Pressure: 137/67 Pulse: 96 Respirations: 24 Pulse Ox (%): 99 - Physical Exam General: Alert, Mild distress HEENT: Atraumatic, PERRLA, EOMI Neck: Supple, JVD not distended Respiratory: Diminished Cardiovascular: Regular rate/rhythm, Normal S1 S2 Gastrointestinal: Normal bowel sounds, No tenderness Musculoskeletal: No tenderness Integumentary: No rashes Neurological: Normal speech, Normal tone, Normal affect Lymphatics: No axilla or inguinal lymphadenopathy - Studies Medications List Reviewed: Yes Assessment And Plan - Current Problems (Diagnosis) (1) Elevated troponin Onset Date: 03/17/18 Current Visit: Yes Status: Acute Plan: STRAIN TO HEART FROM COPD EXACERBATION. SHE IS A HIGH RISK CANDIDATE FOR CAD WITH SMOKING HISTORY AND AGE. SHE IS A POOR CANDIDATE FOR INVASIVE CARDIAC TESTING. (2) COPD exacerbation Onset Date: 07/09/16 Current Visit: No Status: Acute Plan: IV SOLUMEDROL NEBULIZERS RX NO SIGNS OF INFECTION BY SYMPTOMS OR CXR. RESUME NEBS STEROIDS AND ABX. AMBULATE.
--- NOTE | 2018-03-17 13:37 | CON ---
Date of Consultation: 03/17/2018 Reason For Consultation: Shortness of breath. History Of Present Illness: Ms. Pradhan is an 82-year-old white woman she has a known history of chronic diastolic congestive heart failure. This was documented by echocardiography in October. In 2015, she had a negative Lexiscan. She came in with shortness of breath. Chest x-ray showed what looks like pneumonitis. EKG shows sinus tachycardia. She had a troponin of 0.18 x2. White cou nt was 12,000, glucose was 220. She did not have any chest pain, most of her symptoms were shortness of breath, dyspnea on exertion. Some mild pedal edema. No palpitation and no syncope. Past Medical History: Include diastolic congestive heart failure, COPD, hypertension, CAD, and dysph agia. Allergies: TO CIPROFLOXACIN AND LEVAQUIN. Review of Systems: Negative. Social History: Negative for tobacco, alcohol, or drugs. Family History: Negative for heart disease. Medications: Listed by Dr. Saldana'sera to include steroids. Physical Examination: General: Ms. Pradhan is moderately obese. Vital Signs: Stable, afebrile, in sinus rhythm, no acute distress. HEENT: Negative. Neck: Supple with no bruit, lymphadenopathy, JVD, or thyromegaly. Chest: Reveals some rales at both bases. Cardiac: Revealed a regular rhythm and rate with an S4 gallop, no murmurs or rubs. Abdomen: Benign. Extremities: Revealed trace edema. Diagnostic Data: As stated earlier. Impression And Plan: 1.Chronic obstructive pulmonary disease exacerbation. 2.Acute on chronic diastolic congestive heart failure. 3.Hypertension. 4.Obesity. 5.Coronary artery disease seems to be stable. I am not overly concerned about the troponin of 0.18 x2. She just recently had an echocardiogram in October 2017 and so we did not plan to repeat that. I t may be reasonable when she is all better from a lung standpoint for her to have another Lexiscan an d I can make arrangements for that as an outpatient. Continue present regimen otherwise. ARMOND/JEREMIAS Voice ID: [id number] Report ID: [id number]
[2018-03-17] MEDS: IPRATROPIUM BROM 0.5MG/2.5ML NEB SCH ×2 (14:28→19:55)
--- NOTE | 2018-03-17 15:35 | EKG ---
Test Date: 2018-03-17 Test Time: 09:50:02 [employer] Operator: MAGO MEASUREMENT RESULTS: Intervals: Rate: 115 HI: 150 QRSD: 78 QT: 362 QTc: 500 [place]: P: 71 HI: 150 QRS: 15 T: 49 INTERPRETIVE STATEMENTS: Sinus tachycardia with premature atrial complexes with aberrant conduction Low voltage QRS Borderline ECG Compared to ECG 03/16/2018 11:13:53 Atrial premature complex(es) now present Aberrant conduction of supraventricular beat(s) now present Low QRS voltage now present Myocardial infarct finding no longer present Electronically Signed On 03-17-18 15:34:39 [employer] by Rashad Christopher
[2018-03-17] MEDS ORDERED: ENOXAPARIN 30 MG/0.3 ML SQ SCH (17:00)
[2018-03-17] MEDS ORDERED: MIRTAZAPINE 15 MG TAB PO SCH (21:00)
[2018-03-17] MEDS: DIAZEPAM 5 MG TABLET PO PRN (23:28)
[2018-03-18] MEDS: LEVALBUTEROL 1.25 MG/3 ML NEB NEB SCH ×3 (01:35→13:10)
[2018-03-18] MEDS: IPRATROPIUM BROM 0.5MG/2.5ML NEB SCH ×3 (01:35→13:10)
[2018-03-18] MEDS: METHYLPREDNISOLONE 40 MG INJ IV SCH ×2 (05:41→13:13)
[2018-03-18] MEDS: ACETAMINOPHEN 500 MG TAB PO PRN ×2 (06:23→13:14)
[2018-03-18] MEDS: AZITHROMYCIN IV 500 MG in NA CHLORIDE 0.9% 250 ML IVPB SCH (08:33)
[2018-03-18] MEDS: METOPROLOL TAR 50 MG TAB PO SCH (08:34)
[2018-03-18] MEDS: AMLODIPINE 5 MG TAB PO SCH (08:34)
[2018-03-18] MEDS: ASPIRIN EC 81 MG TAB PO SCH (08:34)
[2018-03-18] MEDS: ARIPiprazole 5 MG TAB PO SCH (08:34)
[2018-03-18] MEDS: VENLAFAXINE HCL XR 75 MG CAP PO SCH (13:12)
[2018-03-18 13:13] VITALS: BP 136/64; TEMP 98.7
--- NOTE | 2018-03-18 13:32 | P.DS ---
Admission Date: 03/16/18 Discharge Date: 03/18/18 Disposition: ROUTINE DISCHARGE Discharge Condition: FAIR Reason for Admission: SHORT OF BREATH - Problems (1) Elevated troponin Onset Date: 03/17/18 Current Visit: Yes Status: Acute (2) COPD exacerbation Onset Date: 07/09/16 Current Visit: No Status: Acute Brief History of Present Illness: MR. FOWLER HAS SEVERE COPD, HYPERTHYROIDISM, ANXIETY, INSOMNIA, DEPRESSION AND ONE MORE TIME SHE COMES FOR COPD EXACERBATION FOR 5 DAYS. SHE HAS ALL APPROPRIATE MEDICATIONS FOR COPD. REFUGIO HAS END STAGE COPD. SHE COMES TO [facility] EVERY FEW MONTHS. ONCE AGAIN SHE IMPROVES ON ZITHROMAX AND STEROIDS. SHE IS ON ALL MEDS AT HOME. SHE HAS SOME SMOKE EXPOSURE FROM FRIENDS. SHE WILL LIMIT THAT. Vital Signs/Physical Exam: Temp Pulse Resp BP Pulse Ox 98.7 F 97 H 24 H 136/64 97 03/18/18 12:00 03/18/18 12:00 03/18/18 12:00 03/18/18 12:00 03/18/18 12:00 General: Alert, Mild distress, Moderate distress, Obese HEENT: Atraumatic, PERRLA, EOMI Neck: Supple, JVD not distended Respiratory: Diminished Cardiovascular: Regular rate/rhythm, Normal S1 S2 Gastrointestinal: Normal bowel sounds, No tenderness Musculoskeletal: No tenderness Integumentary: No rashes Neurological: Normal speech, Normal tone, Normal affect Lymphatics: No axilla or inguinal lymphadenopathy Laboratory Data at Discharge: WBC 11.8 K/uL (4.3-10.9) H 03/17/18 06:11 Hgb 12.1 g/dL (12.0-15.0) 03/17/18 06:11 Hct 36.2 % (36.0-45.0) 03/17/18 06:11 Plt Count 240 K/uL (152-406) 03/17/18 06:11 PT 13.0 SECONDS (9.5-12.5) H 03/16/18 11:35 INR 1.10 03/16/18 11:35 Sodium 140 mmol/L (136-145) 03/17/18 06:11 Potassium 4.5 mmol/L (3.5-5.1) 03/17/18 06:11 BUN 30 mg/dL (7-18) H 03/17/18 06:11 Creatinine 1.24 mg/dL (0.55-1.3) 03/17/18 06:11 Glucose 218 mg/dL (74-106) H 03/17/18 06:11 Magnesium 2.3 mg/dL (1.8-2.4) 03/16/18 11:35 Total Bilirubin 0.3 mg/dL (0.2-1.0) 03/16/18 11:35 AST 17 U/L (15-37) 03/16/18 11:35 ALT 20 U/L (12-78) 03/16/18 11:35 Alkaline Phosphatase 79 U/L (45-117) 03/16/18 11:35 Troponin I 0.10 ng/mL (0.0-0.045) H 03/16/18 19:29 Home Medications: ARIPiprazole [Abilify] 5 mg PO DAILY 03/17/18 Albuterol Sulfate [Proair Hfa] 2 puff IH QID 03/17/18 Amlodipine [Norvasc*] 5 mg PO DAILY 03/17/18 Codeine/APAP [Tylenol #3*] 1 tab PO DAILYPRN PRN 03/17/18 Losartan Potassium [Cozaar*] 50 mg PO DAILY 03/17/18 Metoprolol Tartrate 25 mg PO BID 03/17/18 Mirtazapine [Remeron*] 50 mg PO BEDTIME 03/17/18 Nebivolol HCl [Bystolic*] 5 mg PO DAILY 03/17/18 Umeclidinium Brm/Vilanterol Tr [Anoro Ellipta 62.5-25 Mcg INH] 1 puff IH DAILY 03/17/18 Ursodiol 300 mg PO BID 03/17/18 Venlafaxine HCl [Venlafaxine HCl ER] 150 mg PO DAILY WITH BREAKFAST 03/17/18 diazePAM [Diazepam] 5 mg PO BEDTIME 03/17/18 Azithromycin Tab [Zithromax*] 250 mg PO ZPAK #1 aureliano 03/18/18 New Medications: Azithromycin Tab [Zithromax*] 250 mg PO ZPAK #1 aureliano
[2018-03-18 14:23] VITALS: O2SAT 98
== END 2018-03-18 14:42 | disposition home health service (06) ==
LOC: ER 11:07 → ERHOLD 14:40 → 4TH 16:41
PROVIDERS: ADMIT Internal Medicine; ATTEND Internal Medicine
DX: J44.1 Chronic obstructive pulmonary disease with (acute) exacerbation (principal); I11.0 Hypertensive heart disease with heart failure; I50.33 Acute on chronic diastolic (congestive) heart failure; G47.00 Insomnia, unspecified; I25.10 Atherosclerotic heart disease of native coronary artery without angina pectoris; F41.8 Other specified anxiety disorders; Z88.0 Allergy status to penicillin
CPT/HCPCS: 36415 ×2; 71045; 80048 ×2; 80076; 81003; 83605 ×2; 83735; 83880; 84484 ×3; 85025 ×2; 85610; 93005 ×2; 94640; 96374; 99285; G0378 ×2; J0456 ×2; J1650; J2920 ×7; J2930

== ENCOUNTER 2018-06-14 17:59 | Inpatient (IN) | payer OTHER, MEDICARE ==
--- OUTSIDE RECORDS SUMMARY | 2018-06-14 18:04 | XMS REPORT | Clinical Summary ---
:1935 Author Organization [facility] Address [address] [place] [address] Care Team Providers Name Role Phone Sharpdavid [...] Not on file Results Not on fileafter 06/13/2017 Insurance Payer Benefit Plan / Group Subscriber ID Type Phone Address MEDICARE MEDICARE A B xxxxxxxxxx Medicare MCR SUPPLEMENT/INDIVIDUAL AARP/[facility] xxxxxxxxxxx [address] Simón Holden (Home) [address] [place] [address] Advance Directives For more information, please contact:[address] [phone] Code Status Date Activated Date Inactivated Comments Full Code 01/09/2017 3:57 AM 01/13/2017 2:09 PM This code status was determined by: Patient
--- OUTSIDE RECORDS SUMMARY | 2018-06-14 18:04 | XMS REPORT ---
:1935 [facility] [address] [place] [id number] Care Team Providers Name Role Phone HAILEE DOWELL Unavailable Unavailable Problems This patient has no known problems. Allergies, Adverse Reactions, Alerts This patient has no known allergies or adverse reactions. Medications This patient has no known medications. Results Test Description Test Time Test Comments Text Results Atomic Results Result Comments BLOOD CULTURE 2017-01-15 00:00:00 Test Item Value Reference Range Comments CULTURE (BEAKER) (test vypd=0268) No growth in 5 days BLOOD [id number] 00:00:00 Test Item Value Reference Range Comments CULTURE (BEAKER) (test tqtt=6320) No growth in 5 days CLOSTRIDIUM DIFFICILE TOXIN [id number] 17:09:00 Test Item Value Reference Range Comments CLOSTRIDIUM DIFFICILE TOXIN, PCR (BEAKER) (test Not Detected Not Detected mnik=[id number]) This qualitative real-time polymerase chain reaction assay [...] a positive result is not recommended.BASIC METABOLIC [id number] 10:06:00 Test Item Value Reference Range Comments SODIUM (BEAKER) (test 138 meq/L 136-145 mwjc=314) POTASSIUM (BEAKER) (test 4.2 meq/L 3.5-5.1 Specimen slightly nrwp=891) hemolyzed CHLORIDE (BEAKER) (test 104 meq/L 98-107 mbtm=604) CO2 (BEAKER) (test 24 meq/L 22-29 xzcm=561) BLOOD UREA NITROGEN 26 mg/dL 7-21 (BEAKER) (test mvcp=390) CREATININE (BEAKER) (test 0.94 mg/dL 0.57-1.25 Specimen slightly nzzb=535) hemolyzed GLUCOSE RANDOM (BEAKER) 100 mg/dL 70-105 (test mevs=773) CALCIUM (BEAKER) (test 8.8 mg/dL 8.4-10.2 qrtm=564) EGFR (BEAKER) (test 57 mL/min/1.73 sq m ESTIMATED GFR IS NOT zyto=8438) ACCURATE CREATININE CLEARANCE IN PREDICTING GLOMERULAR FILTRATION RATE. ESTIMATED GFR IS NOT APPLICABLE FOR DIALYSIS PATIENTS. CBC W/PLT COUNT & AUTO [id number] 09:48:00 Test Item Value Reference Range Comments WHITE BLOOD CELL COUNT 12.9 K/ L 3.5-10.5 (BEAKER) (test abaj=815) RED BLOOD CELL COUNT (BEAKER) 4.59 M/ L 3.93-5.22 (test fhqx=004) HEMOGLOBIN (BEAKER) (test 13.4 GM/DL 11.2-15.7 bvnh=649) HEMATOCRIT (BEAKER) (test 43.1 % 34.1-44.9 pzte=276) MEAN CORPUSCULAR VOLUME 93.9 fL 79.4-94.8 (BEAKER) (test grli=590) MEAN CORPUSCULAR HEMOGLOBIN 29.2 pg 25.6-32.2 (BEAKER) (test qpkt=393) MEAN CORPUSCULAR HEMOGLOBIN 31.1 GM/DL 32.2-35.5 CONC (BEAKER) (test lgse=934) RED CELL DISTRIBUTION WIDTH 12.8 % 11.7-14.4 (BEAKER) (test bjzl=573) PLATELET COUNT (BEAKER) (test 286 K/CU MM 150-450 .Discordant from previous twlr=454) results. Clinical correlation suggested. MEAN PLATELET VOLUME (BEAKER) 10.3 fL 9.4-12.3 (test ektm=075) NUCLEATED RED BLOOD CELLS 0 /100 WBC 0-0 (BEAKER) (test ybhv=374) NEUTROPHILS RELATIVE PERCENT 70 % (BEAKER) (test ufxa=845) LYMPHOCYTES RELATIVE PERCENT 17 % (BEAKER) (test udwy=896) MONOCYTES RELATIVE PERCENT 8 % (BEAKER) (test rcxd=595) EOSINOPHILS RELATIVE PERCENT 3 % (BEAKER) (test tqok=413) BASOPHILS RELATIVE PERCENT 1 % (BEAKER) (test mrgg=329) NEUTROPHILS ABSOLUTE COUNT 9.04 K/ L 1.56-6.13 (BEAKER) (test zcgd=549) LYMPHOCYTES ABSOLUTE COUNT 2.22 K/ L 1.18-3.74 (BEAKER) (test ougj=035) MONOCYTES ABSOLUTE COUNT 0.99 K/ L 0.24-0.36 (BEAKER) (test ycaw=754) EOSINOPHILS ABSOLUTE COUNT 0.32 K/ L 0.04-0.36 (BEAKER) (test royx=691) BASOPHILS ABSOLUTE COUNT 0.15 K/ L 0.01-0.08 (BEAKER) (test zhwp=145) IMMATURE 1 % 0-1 GRANULOCYTES-RELATIVE PERCENT (BEAKER) (test fcmu=7467) RAD, FOOT, 2 VIEWS, [id number] 16:52:00Reason for exam:->pain with ambulationFINAL REPORT Radiograph [...] Peterson Verified Date/Time: 01/12/2017 16:52:45 Reading Location: [address] Consult Reading Room T4, [id number] 16:26:00 Test Item Value Reference Range Comments FREE T4 (BEAKER) (test njvv=072) 1.12 ng/dL 0.70-1.48 TSH/FREE T4 IF [id number] 15:46:00 Test Item Value Reference Range Comments THYROID STIMULATING HORMONE (BEAKER) (test 0.03 uIU/mL 0.35-4.94 uenz=135) BASIC METABOLIC [id number] 15:35:00 Test Item Value Reference Range Comments SODIUM (BEAKER) (test 136 meq/L 136-145 aaad=610) POTASSIUM (BEAKER) (test 4.1 meq/L 3.5-5.1 qtnh=616) CHLORIDE (BEAKER) (test 99 meq/L 98-107 xuhr=735) CO2 (BEAKER) (test 24 meq/L 22-29 odzr=307) BLOOD UREA NITROGEN 32 mg/dL 7-21 (BEAKER) (test ffgx=130) CREATININE (BEAKER) (test 1.12 mg/dL 0.57-1.25 gcnh=805) GLUCOSE RANDOM (BEAKER) 164 mg/dL 70-105 (test hysn=240) CALCIUM (BEAKER) (test 10.2 mg/dL 8.4-10.2 vupf=630) EGFR (BEAKER) (test 46 mL/min/1.73 sq m ESTIMATED GFR IS NOT znic=5690) ACCURATE CREATININE CLEARANCE IN PREDICTING GLOMERULAR FILTRATION RATE. ESTIMATED GFR IS NOT APPLICABLE FOR DIALYSIS PATIENTS. CBC W/PLT COUNT & AUTO [id number] 15:06:00 Test Item Value Reference Range Comments WHITE BLOOD CELL COUNT (BEAKER) (test wbhy=473) 17.4 K/ L 3.5-10.5 RED BLOOD CELL COUNT (BEAKER) (test gxvp=865) 4.93 M/ L 3.93-5.22 HEMOGLOBIN (BEAKER) (test kcne=005) 14.0 GM/DL 11.2-15.7 HEMATOCRIT (BEAKER) (test zqty=849) 44.8 % 34.1-44.9 MEAN CORPUSCULAR VOLUME (BEAKER) (test odlh=972) 90.9 fL 79.4-94.8 MEAN CORPUSCULAR HEMOGLOBIN (BEAKER) (test 28.4 pg 25.6-32.2 vxzp=204) MEAN CORPUSCULAR HEMOGLOBIN CONC (BEAKER) (test 31.3 GM/DL 32.2-35.5 tiih=172) RED CELL DISTRIBUTION WIDTH (BEAKER) (test 12.9 % 11.7-14.4 kigm=094) PLATELET COUNT (BEAKER) (test djri=347) 360 K/CU MM 150-450 MEAN PLATELET VOLUME (BEAKER) (test tcyt=955) 10.5 fL 9.4-12.3 NUCLEATED RED BLOOD CELLS (BEAKER) (test 0 /100 WBC 0-0 lclm=530) NEUTROPHILS RELATIVE PERCENT (BEAKER) (test 82 % hjro=209) LYMPHOCYTES RELATIVE PERCENT (BEAKER) (test 11 % zwhe=752) MONOCYTES RELATIVE PERCENT (BEAKER) (test 4 % iosi=388) EOSINOPHILS RELATIVE PERCENT (BEAKER) (test 0 % jlap=982) BASOPHILS RELATIVE PERCENT (BEAKER) (test 1 % gzva=208) NEUTROPHILS ABSOLUTE COUNT (BEAKER) (test 14.33 K/ L 1.56-6.13 lfma=022) LYMPHOCYTES ABSOLUTE COUNT (BEAKER) (test 1.97 K/ L 1.18-3.74 mljo=314) MONOCYTES ABSOLUTE COUNT (BEAKER) (test 0.71 K/ L 0.24-0.36 mdyr=294) EOSINOPHILS ABSOLUTE COUNT (BEAKER) (test 0.05 K/ L 0.04-0.36 pyyx=361) BASOPHILS ABSOLUTE COUNT (BEAKER) (test 0.16 K/ L 0.01-0.08 xmay=569) IMMATURE GRANULOCYTES-RELATIVE PERCENT (BEAKER) 1 % 0-1 (test xckp=4320) URINE [id number] 08:21:00 Test Item Value Reference Range Comments CULTURE (BEAKER) (test rqnk=5495) Amikacin (test code=1) Ampicillin + Sulbactam (test code=6) Aztreonam (test code=32) Cefepime (test code=51) Cefoxitin (test code=68) Ceftazidime (test code=27) Ceftriaxone (test code=52) Ertapenem (test code=38) Gentamicin (test code=18) Levofloxacin (test code=22) Meropenem (test code=34) Nitrofurantoin (test code=23) Piperacillin + Tazobactam (test code=29) Tetracycline (test code=2) Tobramycin (test code=25) Trimethoprim + Sulfamethoxazole (test code=47) CULTURE (BEAKER) (test juvc=9127) >100,000 col/mL Proteus mirabilis <10,000 col/mL skin ranjith<10,000 col/mL gram negative rods of a second typeMR, BRAIN, WITHOUT [id number] 16:03:00Reason for exam:->Ischemic Stroke EvaluationFINAL REPORT MRI [...] [place] MDReport Verified Date/Time: 16:03:04 Reading Location: [address] Neuro Reading Room URINALYSIS W/ [id number] 15:35:00 Test Item Value Reference Range Comments COLOR (BEAKER) (test ezcu=917) Light Yellow CLARITY (BEAKER) (test vrwz=552) Hazy SPECIFIC GRAVITY UA (BEAKER) (test iuhm=538) 1.010 1.001-1.035 PH UA (BEAKER) (test gssf=859) 8.0 5.0-8.0 PROTEIN UA (BEAKER) (test hwlh=857) 20 mg/dL Negative GLUCOSE UA (BEAKER) (test zojx=016) Negative Negative KETONES UA (BEAKER) (test tfij=298) Negative Negative BILIRUBIN UA (BEAKER) (test mitb=033) Negative Negative BLOOD UA (BEAKER) (test lydf=745) Negative Negative NITRITE UA (BEAKER) (test nohj=032) Negative Negative LEUKOCYTE ESTERASE UA (BEAKER) (test uxqq=157) Large Negative UROBILINOGEN UA (BEAKER) (test usol=392) 0.2 mg/dL 0.2-1.0 RBC UA (BEAKER) (test ahpd=254) 2 /HPF WBC UA (BEAKER) (test pzah=341) 87 /HPF SQUAMOUS EPITHELIAL (BEAKER) (test doeu=007) 3 /HPF SOURCE(BEAKER) (test fvzt=5230) Urine, Voided URINALYSIS W/ REFLEX URINE [id number] 15:35:00 Test Item Value Reference Range Comments COLOR (BEAKER) (test wbkh=166) Light Yellow CLARITY (BEAKER) (test eyto=576) Hazy SPECIFIC GRAVITY UA (BEAKER) (test zvkt=180) 1.010 1.001-1.035 PH UA (BEAKER) (test txmf=747) 8.0 5.0-8.0 PROTEIN UA (BEAKER) (test yivc=289) 20 mg/dL Negative GLUCOSE UA (BEAKER) (test ntzs=990) Negative Negative KETONES UA (BEAKER) (test beqt=410) Negative Negative BILIRUBIN UA (BEAKER) (test ejea=606) Negative Negative BLOOD UA (BEAKER) (test sjrx=644) Negative Negative NITRITE UA (BEAKER) (test ixze=227) Negative Negative LEUKOCYTE ESTERASE UA (BEAKER) (test hddv=887) Large Negative UROBILINOGEN UA (BEAKER) (test zosp=665) 0.2 mg/dL 0.2-1.0 RBC UA (BEAKER) (test wfve=776) 2 /HPF WBC UA (BEAKER) (test wlhu=886) 87 /HPF SQUAMOUS EPITHELIAL (BEAKER) (test amlr=631) 3 /HPF SOURCE(BEAKER) (test yfcj=1462) Urine, Voided [id number] 14:30:00 Test Item Value Reference Range Comments RPR SCREEN (BEAKER) (test ydds=636) Nonreactive Nonreactive HEMOGLOBIN [id number] 10:58:00 Test Item Value Reference Range Comments HEMOGLOBIN A1C (BEAKER) (test kvks=798) 5.8 % 4.3-6.1 SEDIMENTATION [id number] 10:44:00 Test Item Value Reference Range Comments SEDIMENTATION RATE, ERYTHROCYTE (BEAKER) (test 52 mm/HR 0-40 qkfj=951) T4, [id number] 09:16:00 Test Item Value Reference Range Comments FREE T4 (BEAKER) (test tbar=751) 0.94 ng/dL 0.70-1.48 TSH/FREE T4 IF [id number] 08:42:00 Test Item Value Reference Range Comments THYROID STIMULATING HORMONE (BEAKER) (test 0.05 uIU/mL 0.35-4.94 fgcc=500) VITAMIN B12 AND [id number] 08:37:00 Test Item Value Reference Range Comments VITAMIN B12 (BEAKER) (test bhtv=823) 829 pg/mL 213-816 FOLATE (BEAKER) (test hoek=799) 15.9 ng/mL >=7.0 [id number] 08:36:00 Test Item Value Reference Range Comments HOMOCYSTEINE (BEAKER) (test ynpq=989) 10.2 umol/L 5.1-15.4 LIPID [id number] 08:26:00 Test Item Value Reference Range Comments TRIGLYCERIDES (BEAKER) (test guvg=857) 86 mg/dL CHOLESTEROL (BEAKER) (test hgtd=650) 194 mg/dL HDL CHOLESTEROL (BEAKER) (test futg=461) 66 mg/dL LDL CHOLESTEROL CALCULATED (BEAKER) (test 111 mg/dL oylf=917) Triglyceride Reference Range: Low Risk <150 Borderline 150- 199 High Risk 200-499 Very High Risk >=500Cholesterol Reference Range: Low Risk <200 Borderline 200-239 High Risk > 240HDL Cholesterol Reference Range: Low Risk >=60 High Risk <40LDL Cholesterol Reference Range: Optimal <100 Near Optimal 100-129 Borderline 130-159 High 160-189 Very High >=190 FastingBASIC METABOLIC [id number] 08:26:00 Test Item Value Reference Range Comments SODIUM (BEAKER) (test 136 meq/L 136-145 yabq=852) POTASSIUM (BEAKER) (test 4.7 meq/L 3.5-5.1 fkge=102) CHLORIDE (BEAKER) (test 99 meq/L 98-107 qjkd=742) CO2 (BEAKER) (test 24 meq/L 22-29 ilpy=278) BLOOD UREA NITROGEN 27 mg/dL 7-21 (BEAKER) (test ljnb=033) CREATININE (BEAKER) (test 1.04 mg/dL 0.57-1.25 tsrd=715) GLUCOSE RANDOM (BEAKER) 133 mg/dL 70-105 (test eqlw=746) CALCIUM (BEAKER) (test 8.8 mg/dL 8.4-10.2 jlwf=314) EGFR (BEAKER) (test 51 mL/min/1.73 sq m ESTIMATED GFR IS NOT mhtd=8189) ACCURATE CREATININE CLEARANCE IN PREDICTING GLOMERULAR FILTRATION RATE. ESTIMATED GFR IS NOT APPLICABLE FOR DIALYSIS PATIENTS. FastingHEPATIC FUNCTION [id number] 08:26:00 Test Item Value Reference Range Comments TOTAL PROTEIN (BEAKER) (test wknp=219) 6.8 gm/dL 6.0-8.3 ALBUMIN (BEAKER) (test esmq=3379) 3.4 g/dL 3.5-5.0 BILIRUBIN TOTAL (BEAKER) (test lyur=205) 0.6 mg/dL 0.2-1.2 BILIRUBIN DIRECT (BEAKER) (test axuf=828) 0.2 mg/dL 0.1-0.5 ALKALINE PHOSPHATASE (BEAKER) (test amtd=190) 67 U/L 40-150 AST (SGOT) (BEAKER) (test xcfi=817) 16 U/L 5-34 ALT (SGPT) (BEAKER) (test uxmd=423) 11 U/L 6-55 FastingCREATINE KINASE (CK), TOTAL AND [id number] 08:26:00 Test Item Value Reference Range Comments CREATINE KINASE TOTAL (BEAKER) (test samn=596) 30 U/L 29-200 CREATINE KINASE-MB (BEAKER) (test scfx=780) 0.8 ng/mL 0.0-6.6 CREATINE KINASE-MB INDEX (BEAKER) (test qdgy=772) 2.7 % CK-MB Reference Range:<6.7 Normal6.7-10.0 Borderline>10.0 AbnormalFastingFastingC-REACTIVE [id number] 08:26:00 Test Item Value Reference Range Comments C-REACTIVE PROTEIN (BEAKER) (test hpew=324) 1.74 mg/dL 0.00-0.50 FastingCBC W/PLT COUNT & AUTO [id number] 07:57:00 Test Item Value Reference Range Comments WHITE BLOOD CELL COUNT (BEAKER) (test uqku=928) 16.6 K/ L 3.5-10.5 RED BLOOD CELL COUNT (BEAKER) (test tvwb=795) 4.21 M/ L 3.93-5.22 HEMOGLOBIN (BEAKER) (test jtuz=828) 12.3 GM/DL 11.2-15.7 HEMATOCRIT (BEAKER) (test vigd=963) 38.4 % 34.1-44.9 MEAN CORPUSCULAR VOLUME (BEAKER) (test agqw=988) 91.2 fL 79.4-94.8 MEAN CORPUSCULAR HEMOGLOBIN (BEAKER) (test 29.2 pg 25.6-32.2 qbwx=885) MEAN CORPUSCULAR HEMOGLOBIN CONC (BEAKER) (test 32.0 GM/DL 32.2-35.5 unpu=777) RED CELL DISTRIBUTION WIDTH (BEAKER) (test 12.9 % 11.7-14.4 zxbl=114) PLATELET COUNT (BEAKER) (test kiwa=100) 296 K/CU MM 150-450 MEAN PLATELET VOLUME (BEAKER) (test ifmw=036) 10.3 fL 9.4-12.3 NUCLEATED RED BLOOD CELLS (BEAKER) (test 0 /100 WBC 0-0 keod=359) NEUTROPHILS RELATIVE PERCENT (BEAKER) (test 78 % ftvj=151) LYMPHOCYTES RELATIVE PERCENT (BEAKER) (test 15 % rhse=304) MONOCYTES RELATIVE PERCENT (BEAKER) (test 5 % sotm=657) EOSINOPHILS RELATIVE PERCENT (BEAKER) (test 1 % ibli=458) BASOPHILS RELATIVE PERCENT (BEAKER) (test 1 % nkum=402) NEUTROPHILS ABSOLUTE COUNT (BEAKER) (test 12.92 K/ L 1.56-6.13 biyq=715) LYMPHOCYTES ABSOLUTE COUNT (BEAKER) (test 2.40 K/ L 1.18-3.74 ihsx=797) MONOCYTES ABSOLUTE COUNT (BEAKER) (test 0.90 K/ L 0.24-0.36 wpxr=045) EOSINOPHILS ABSOLUTE COUNT (BEAKER) (test 0.08 K/ L 0.04-0.36 wlqu=683) BASOPHILS ABSOLUTE COUNT (BEAKER) (test 0.11 K/ L 0.01-0.08 riyv=296) IMMATURE GRANULOCYTES-RELATIVE PERCENT (BEAKER) 1 % 0-1 (test xmzh=5279) TROPONIN [id number] 07:47:00 Test Item Value Reference Range Comments TROPONIN I (BEAKER) (test yeob=635) 0.01 ng/mL 0.00-0.03 Troponin I (TnI) levels [...]
--- NOTE | 2018-06-14 18:17 | EDPHYS ---
Physician Documentation [facility] Name: Elida Pradhan Age: 82 yrs Sex: Female : 1935 Arrival Date: 06/14/2018 Time: 18:03 Bed 6 Private MD: ED Physician Nghia Akins HPI: 06/14 18:16 This 82 yrs old Female presents to ER via EMS with complaints of Shortness Of snw Breath. 18:16 The patient has shortness of breath at rest. Onset: The symptoms/episode began/occurred snw gradually, yesterday. Duration: The symptoms are continuous, and are steadily getting worse. Associated signs and symptoms: Pertinent positives: SOB, edema to bilateral extremities, R>L. The patient has not experienced similar symptoms in the past. appt with Dr. Saldana in 2 days. Historical: - Allergies: 18:04 Cipro; aa5 18:04 Levaquin; aa5 - PMHx: 18:04 CHF; COPD; DYSPHAGIA; Hypertension; Myocardial infarction; aa5 - PSHx: 18:04 None; aa5 - Immunization history:: Adult Immunizations up to date. - Ebola Screening: : No symptoms or risks identified at this time. - Social history:: Smoking status: Patient/guardian denies using tobacco. ROS: 18:18 Constitutional: Negative for fever, chills, and weight loss, Eyes: Negative for injury, snw pain, redness, and discharge, ENT: Negative for injury, pain, and discharge, Neck: Negative for injury, pain, and swelling, Cardiovascular: Negative for chest pain, palpitations, and edema, Abdomen/GI: Negative for abdominal pain, nausea, vomiting, diarrhea, and constipation, Back: Negative for injury and pain, : Negative for injury, bleeding, discharge, and swelling, MS/Extremity: Negative for injury and deformity, Skin: Negative for injury, rash, and discoloration, Neuro: Negative for headache, weakness, numbness, tingling, and seizure. 18:18 Respiratory: Positive for shortness of breath, at rest. Exam: 18:19 Head/Face: Normocephalic, atraumatic. Eyes: Pupils equal round and reactive to light, snw extra-ocular motions intact. Lids and lashes normal. Conjunctiva and sclera are non-icteric and not injected. Cornea within normal limits. Periorbital areas with no swelling, redness, or edema. ENT: Nares patent. No nasal discharge, no septal abnormalities noted. Tympanic membranes are normal and external auditory canals are clear. Oropharynx with no redness, swelling, or masses, exudates, or evidence of obstruction, uvula midline. Mucous membranes moist. Neck: Trachea midline, no thyromegaly or masses palpated, and no cervical lymphadenopathy. Supple, full range of motion without nuchal rigidity, or vertebral point tenderness. No Meningismus. Chest/axilla: Normal chest wall appearance and motion. Nontender with no deformity. No lesions are appreciated. 18:19 Abdomen/GI: Soft, non-tender, with normal bowel sounds. No distension or tympany. No guarding or rebound. No evidence of tenderness throughout. Back: No spinal tenderness. No costovertebral tenderness. Full range of motion. Skin: Warm, dry with normal turgor. Normal color with no rashes, no lesions, and no evidence of cellulitis. MS/ Extremity: Pulses equal, no cyanosis. Neurovascular intact. Full, normal range of motion. Neuro: Awake and alert, GCS 15, oriented to person, place, time, and situation. Cranial nerves II-XII grossly intact. Motor strength 5/5 in all extremities. Sensory grossly intact. Cerebellar exam normal. Normal gait. 18:19 Constitutional: The patient appears alert, awake, obese, uncomfortable. 18:19 Cardiovascular: Rate: tachycardic, Rhythm: irregularly irregular, Pulses: no pulse deficits are appreciated, Heart sounds: normal, Edema: pedal edema, ankle edema. 18:19 ECG was reviewed by the Attending Physician. 18:19 Respiratory: mild respiratory distress is noted, Respirations: shallow respirations, tachypnea, Breath sounds: wheezing: that is moderate, is heard diffusely, A\T\A tx per EMS. Vital Signs: 18:00 BP 130 / 82; Pulse 160 MON; Resp 29; Pulse Ox 92% on R/A; sv 18:42 Pulse 99 MON; Resp 25; Pulse Ox 97% on 2.5 lpm NC; sv 18:54 BP 127 / 63; Pulse 85 MON; Resp 19; Pulse Ox 100% on 2.5 lpm NC; sv 19:08 BP 128 / 51; Pulse 74; Resp 18; Pulse Ox 100% ; ea 20:23 BP 118 / 74; Pulse 74; Resp 18; Pulse Ox 100% ; ea 18:00 A fib with Rapid ventricular response sv 18:42 Sinus Rhythm sv 18:54 Sinus Rhythm sv 18:00 Pt placed on O2 \T\ 2.5 L per NC. O2 sat up to 97%. sv MDM: 18:13 Data reviewed: vital signs, nurses notes. Data interpreted: Pulse oximetry: on room air snw is 98 %. Interpretation: acceptable. Counseling: I had a detailed discussion with the patient and/or guardian regarding: the historical points, exam findings, and any diagnostic results supporting the discharge/admit diagnosis, the presence of at least one elevated blood pressure reading (>120/80) during this emergency department visit, lab results, radiology results, the need for further work-up and treatment in the hospital. Physician consultation: Slade Saldana MD was called at 18:14, was contacted at 18:14, regarding admission, to the telemetry unit. would like medications started, Betapase 80mg po BID and Eliquis 5mg po BID. 18:16 Patient medically screened. 06/14 18:09 Order name: Basic Metabolic Panel; Complete Time: 19:18 snw 06/14 18:09 Order name: CBC with Diff; Complete Time: 18:36 w 06/14 18:09 Order name: LFT's; Complete Time: 19:18 snw 06/14 18:09 Order name: Magnesium; Complete Time: 19:18 snw 06/14 18:09 Order name: NT PRO-BNP; Complete Time: 19:18 snw 06/14 18:09 Order name: PT-INR; Complete Time: 18:36 snw 06/14 18:09 Order name: Troponin (emerg Dept Use Only); Complete Time: 19:18 snw 06/14 18:09 Order name: XRAY Chest (1 view); Complete Time: 18:43 snw 06/14 18:09 Order name: EKG; Complete Time: 18:10 w 06/14 18:24 Order name: US Extremity Venous W Compression Pratik 06/14 19:13 Order name: US; Complete Time: 19:18 EDMS 06/14 18:09 Order name: Cardiac monitoring; Complete Time: 18:22 w 06/14 18:09 Order name: EKG - Nurse/Tech; Complete Time: 18:22 snw 06/14 18:09 Order name: IV Saline Lock; Complete Time: 18:22 snw 06/14 18:09 Order name: Labs collected and sent; Complete Time: 18:22 snw 06/14 18:09 Order name: O2 Per Protocol; Complete Time: 18:22 snw 06/14 18:09 Order name: O2 Sat Monitoring; Complete Time: 18: snw 06/14 18:46 Order name: EKG; Complete Time: 18:46 sv 06/14 18:46 Order name: EKG - Nurse/Tech; Complete Time: 18:53 sv EC:49 Rate is 87 beats/min. Rhythm is regular. QRS [place] is Normal. IA interval is normal. QRS ps1 interval is normal. QT interval is normal. No Q waves. T waves are Normal. ST Segment is depressed in lead III. Clinical impression: NSR w/ Non-specific ST/T Changes. Interpreted by me. Administered Medications: 18:21 Drug: Betapace 80 mg Route: PO; sv 18:55 Follow up: Response: No adverse reaction; Marked relief of symptoms sv 18:22 CANCELLED (Physician Discretion): Metoprolol 5 mg IVP every 5 minutes; Hold for SBP < sv 100 or HR < 60. x3 18:32 Drug: Eliquis 5 mg Route: PO; sv 18:56 Follow up: Response: No adverse reaction sv Disposition: 21:27 Co-signature as Attending Physician, Nghia Akins MD Available for consultation at ps1 all times . Disposition: 06/14/18 18:16 Hospitalization ordered by Slade Saldana for Inpatient Admission. Preliminary diagnosis is Atrial fibrillation and flutter - with RVR. - Bed requested for Telemetry/MedSurg (Inpatient). - Status is Inpatient Admission. ea - Condition is Stable. - Problem is an acute exacerbation. - Symptoms have worsened. UTI on Admission? No Signatures: Dispatcher [employer] Marjorie Garay RN Amanda Santoro, VEGETABLE LOADER MACHINE OPERATOR-C VEGETABLE LOADER MACHINE OPERATOR-Ankitw Adriana Vilchis RN RN aa5 Garcia, Cindy, RN RN Baltazar, Kinza, RN RN ea Akins, Nghia, MD MD ps1 Corrections: (The following items were deleted from the chart) 18:22 18:09 Metoprolol 5 mg IVP every 5 minutes; Hold for SBP < 100 or HR < 60. x3 ordered. sv snw 19:10 18:16 Hospitalization Ordered by Slade Saldana MD for Inpatient Admission. Preliminary cg diagnosis is Atrial fibrillation and flutter - with RVR. Bed requested for Telemetry/MedSurg (Inpatient). Status is Inpatient Admission. Condition is Stable. Problem is an acute exacerbation. Symptoms have worsened. UTI on Admission? No. snw 20:26 19:10 06/14/2018 18:16 Hospitalization Ordered by Slade Saldana MD for Inpatient ea Admission. Preliminary diagnosis is Atrial fibrillation and flutter - with RVR. Bed requested for Telemetry/MedSurg (Inpatient). Status is Inpatient Admission. Condition is Stable. Problem is an acute exacerbation. Symptoms have worsened. UTI on Admission? No. cg
--- NOTE | 2018-06-14 18:17 | ER ---
Nurse's Notes [facility] Name: Elida Pradhan Age: 82 yrs Sex: Female : 1935 Arrival Date: 06/14/2018 Time: 18:03 Bed 6 Private MD: Diagnosis: Atrial fibrillation and flutter-with RVR Presentation: 06/14 18:00 Risk Assessment: Do you want to hurt yourself or someone else? Patient reports no sv desire to harm self or others. Initial Sepsis Screen: Does the patient meet any 2 criteria? No. Patient's initial sepsis screen is negative. Does the patient have a suspected source of infection? No. Patient's initial sepsis screen is negative. 18:03 Presenting complaint: EMS states: SOB and audible wheezing upon scene arrival. EMS aa5 reports O2 sat 100% on neb TX. Transition of care: patient was not received from another setting of care. Onset of symptoms was June 14, 2018. Care prior to arrival: Medication(s) given: Albuterol Neb x 1, Atrovent Neb x 1, IV initiated. 20 GA, in the right antecubital area, Oxygen administered. via a nebulizer mask. 18:03 Acuity: TALYA 2 aa5 18:03 Method Of Arrival: EMS: [facility] aa5 Historical: - Allergies: 18:04 Cipro; aa5 18:04 Levaquin; aa5 - PMHx: 18:04 CHF; COPD; DYSPHAGIA; Hypertension; Myocardial infarction; aa5 - PSHx: 18:04 None; aa5 - Immunization history:: Adult Immunizations up to date. - Ebola Screening: : No symptoms or risks identified at this time. - Social history:: Smoking status: Patient/guardian denies using tobacco. Screenin:00 Abuse screen: Denies threats or abuse. Denies injuries from another. Nutritional sv screening: No deficits noted. Tuberculosis screening: No symptoms or risk factors identified. Fall Risk None identified. Assessment: 18:05 General: Appears in no apparent distress. uncomfortable, well developed, Behavior is sv calm, cooperative, appropriate for age. Pain: Denies pain. Neuro: Level of Consciousness is awake, alert, obeys commands, Oriented to person, place, time, situation, Moves all extremities. Full function Speech is normal. Cardiovascular: Heart tones S1 S2 present Patient's skin is warm and dry. Pulses are 3+ in right radial artery and left radial artery Edema is 1+ to left foot and right foot Rhythm is atrial fibrillation with rapid ventricular response. Respiratory: Reports shortness of breath at rest on exertion Airway is patent Respiratory effort is even, labored, shallow, Respiratory pattern is symmetrical, tachypnea Breath sounds with wheezes bilaterally. Derm: Skin is normal. 18:39 Reassessment: Ultrasound at the bedside. sv 18:54 Reassessment: Patient appears in no apparent distress at this time. Patient and/or sv family updated on plan of care and expected duration. Pain level reassessed. Patient is alert, oriented x 3, equal unlabored respirations, skin warm/dry/pink. Cardiovascular: Rhythm is sinus rhythm. Respiratory: Airway is patent Respiratory effort is even, unlabored, Respiratory pattern is regular, symmetrical, the patient reports symptoms have resolved. 19:16 General: Appears in no apparent distress. Behavior is calm, cooperative, appropriate ea for age. Pain: Denies pain. Neuro: Level of Consciousness is awake, alert, obeys commands, Oriented to person, place, time, situation. Cardiovascular: Patient's skin is warm and dry. Respiratory: Airway is patent Respiratory effort is even, unlabored, Respiratory pattern is regular, symmetrical. Derm: Skin is normal. 20:24 Reassessment: Patient and/or family updated on plan of care and expected duration. Pain ea level reassessed. Patient is alert, oriented x 3, equal unlabored respirations, skin warm/dry/pink. Report called to receiving nurse on fourth floor. Vital Signs: 18:00 BP 130 / 82; Pulse 160 MON; Resp 29; Pulse Ox 92% on R/A; sv 18:42 Pulse 99 MON; Resp 25; Pulse Ox 97% on 2.5 lpm NC; sv 18:54 BP 127 / 63; Pulse 85 MON; Resp 19; Pulse Ox 100% on 2.5 lpm NC; sv 19:08 BP 128 / 51; Pulse 74; Resp 18; Pulse Ox 100% ; ea 20:23 BP 118 / 74; Pulse 74; Resp 18; Pulse Ox 100% ; ea 18:00 A fib with Rapid ventricular response sv 18:42 Sinus Rhythm sv 18:54 Sinus Rhythm sv 18:00 Pt placed on O2 \T\ 2.5 L per NC. O2 sat up to 97%. sv ED Course: 17:56 Maintain EMS IV. Dressing intact. Good blood return noted. Site clean \T\ dry. Gauge \T\ sv site: 20G R AC. 18:00 Patient has correct armband on for positive identification. Bed in low position. Call sv light in reach. Side rails up X2. cardiac monitor on. Pulse ox on. NIBP on. Door closed. Head of bed elevated. 18:03 Patient arrived in ED. aa5 18:03 Arm band placed on. aa5 18:04 Triage completed. aa5 18:06 EKG done, by ED staff, reviewed by Nghia Akins MD. sv 18:15 Slade Saldana MD is Hospitalizing Provider. snw 18:21 Marjorie Bonilla RN is Primary Nurse. sv 18:22 Initial lab(s) drawn, by me, sent to lab. Inserted saline lock: 22 gauge in left hand, em1 using aseptic technique. Blood collected. 18:27 X-ray completed. Portable x-ray completed in exam room. Patient tolerated procedure ml well. 18:27 XRAY Chest (1 view) In Process Unspecified. EDMS 18:35 Nghia Akins MD is Attending Physician. ps1 18:49 EKG done, by ED staff, reviewed by Nghia Akins MD. sv 19:00 Ultrasound completed. Patient tolerated well. cy 19:16 No provider procedures requiring assistance completed. Patient admitted, IV remains in ea place. 19:17 Primary Nurse role handed off by Marjorie Bonilla, HARSHAL sv 20:23 Kinza Baltazar, RN is Primary Nurse. ea Administered Medications: 18:21 Drug: Betapace 80 mg Route: PO; sv 18:55 Follow up: Response: No adverse reaction; Marked relief of symptoms sv 18:22 CANCELLED (Physician Discretion): Metoprolol 5 mg IVP every 5 minutes; Hold for SBP < sv 100 or HR < 60. x3 18:32 Drug: Eliquis 5 mg Route: PO; sv 18:56 Follow up: Response: No adverse reaction sv Outcome: 18:16 Decision to Hospitalize by Provider. snw 19:18 Instructed on the need for admit, Demonstrated understanding of instructions. ea 20:25 Admitted to Med/surg accompanied by tech, room 114, with chart, Report called to ea Receiving nurse on fourth floor 20:25 Condition: stable 20:26 Patient left the ED. ea Signatures: Dispatcher [employer] Marjorie Garay, RN RN Amanda Saldivar, GASTROENTEROLOGY PROFESSOR-C GASTROENTEROLOGY PROFESSOR-Kiki Turner Eric em1 Adriana Vilchis RN RN aa5 Kinza Baltazar RN RN ea Singer, Phillip, MD MD ps1 Yong, Chheannith cy Corrections: (The following items were deleted from the chart) 18:43 18:00 BP 130 / 82; Pulse 160bpm; Resp 29bpm; Pulse Ox 92% RA; Pt placed on O2 \T\ 2.5 L sv per NC. O2 sat up to 97%.; sv
[2018-06-14] MEDS ORDERED: NA CHLORIDE 0.9% 500 ML ONE (18:20)
[2018-06-14] MEDS ORDERED: METOPROLOL TARTRATE 5 MG/5 ML INJ IV ONE (18:20)
[2018-06-14] MEDS ORDERED: SOTALOL HCL 80 MG TAB ONE (18:24)
[2018-06-14 18:34] LABS: Absolute Lymphocytes (CBC) 1.9 K/uL (0.7-4.9); Basophils % 0.7 % (0-1.3); Eosinophils % 1.2 % (0-4.4); Hematocrit 39.8 % (36.0-45.0); Lymphocytes % 11.8 % (15.3-44.8); MPV 9.6 fL (7.6-11.3); Monocytes % 6.4 % (3.3-12.3); RBC Red Blood Cell Count 4.59 M/uL (3.86-4.86)
[2018-06-14 18:35] LABS: Protime INR 1.24
--- NOTE | 2018-06-14 18:35 | RAD REPORT ---
EXAM DESCRIPTION: Shailesh Single View06/14/2018 6:27 pm CLINICAL HISTORY: Chest pain COMPARISON: February 2018 FINDINGS: The lungs appear clear of acute infiltrate. The heart is mildly to moderately enlarged IMPRESSION: No acute abnormalities displayed
[2018-06-14 18:53] LABS: ALT/SGPT 15 U/L (12-78); AST/SGOT 17 U/L (15-37); Albumin 3.1 g/dL (3.4-5.0); Alkaline Phosphatase 78 U/L (45-117); BUN Blood Urea Nitrogen 26 mg/dL (7-18); Bicarbonate 24 mmol/L (21-32); Bilirubin Direct 0.2 mg/dL (0-0.2); Bilirubin Total 0.6 mg/dL (0.2-1.0); Glucose Level 145 mg/dL (74-106); Magnesium 2.1 mg/dL (1.8-2.4); NT PRO-BNP 3114 pg/mL (<450); Potassium 3.8 mmol/L (3.5-5.1); Protein, Total 7.8 g/dL (6.4-8.2); Sodium Level 139 mmol/L (136-145); Troponin (Emerg Dept Use Only) < 0.02 ng/mL (0.0-0.045)
[2018-06-14] MEDS ORDERED: APIXABAN 5 MG TABLET PO ONE (19:00)
--- NOTE | 2018-06-14 19:12 | RAD REPORT ---
EXAM DESCRIPTION: USExtrem Venous W Compress Bil06/14/2018 7:01 pm CLINICAL HISTORY: Bilateral leg swelling COMPARISON: 2017 FINDINGS: The common femoral, superficial femoral, popliteal and posterior tibial veins bilaterally are compressible and demonstrate augmentation. Doppler demonstrates good flow. IMPRESSION: No evidence of deep venous thrombosis involving either lower extremity.
[2018-06-14] MEDS: ALBUTEROL 2.5 MG/3 ML NEB SOL NEB SCH (21:45)
[2018-06-14] MEDS ORDERED: ALBUTEROL 2.5 MG/3 ML NEB SOL ONE (21:55)
[2018-06-15] MEDS: DIAZEPAM 5 MG TABLET PO PRN ×2 (00:15→21:18)
[2018-06-15] MEDS: ALBUTEROL 2.5 MG/3 ML NEB SOL NEB SCH ×6 (02:06→20:00)
[2018-06-15 04:01] LABS: Absolute Neutrophil 8.3 K/uL (1.8-8.0); Basophils % 0.8 % (0-1.3); Eosinophils % 3.2 % (0-4.4); Hematocrit 35.1 % (36.0-45.0); Lymphocytes % 17.3 % (15.3-44.8); MPV 9.5 fL (7.6-11.3); Monocytes % 8.3 % (3.3-12.3); RBC Red Blood Cell Count 3.99 M/uL (3.86-4.86)
[2018-06-15] MEDS: SOTALOL HCL 80 MG TAB PO SCH ×2 (05:51→17:10)
[2018-06-15] MEDS: CODEINE 30MG/APAP 300MG TAB PO PRN ×2 (05:53→16:31)
[2018-06-15] MEDS: APIXABAN 5 MG TABLET PO SCH ×2 (08:35→20:22)
--- NOTE | 2018-06-15 08:37 | P.HP ---
Certification for Inpatient Patient admitted to: Inpatient With expected LOS: >2 Midnights Practitioner: I am a practitioner with admitting privileges, knowledge of patient current condition, hospital course, and medical plan of care. Services: Services provided to patient in accordance with Admission requirements found in Title 42 Section 412.3 of the Code of Federal Regulations Patient History Date of Service: 06/15/18 Reason for admission: SHORT OF BREATH. History of Present Illness: REFUGIO HAS SEVERE COPD, OXYGEN DEPENDENET COMES WITH DYSPNEA AT REST, WAS FOUND TO HAVE NEW RAPID A FIB. I TOLD DISTRIBUTION TECHNICIAN TO GIVE BETAPACE AND ELIQUIS SO WE CAN SEND HER HOME IN TWO DAYS. SHE IS A LOT BETTER TODAY. Allergies ciprofloxacin Adverse Reaction (Verified 01/21/18 18:54) Nausea/Vomiting levofloxacin [From Levaquin] Adverse Reaction (Verified 01/21/18 18:54) Nausea/Vomiting Home Medications: ARIPiprazole [Abilify] 5 mg PO DAILY 03/17/18 Albuterol Sulfate [Proair Hfa] 2 puff IH QID 03/17/18 Amlodipine [Norvasc*] 5 mg PO DAILY 03/17/18 Codeine/APAP [Tylenol #3*] 1 tab PO Q4HP PRN 03/17/18 Losartan Potassium [Cozaar*] 50 mg PO DAILY 03/17/18 Metoprolol Tartrate 25 mg PO BID 03/17/18 Mirtazapine [Remeron*] 50 mg PO BEDTIME 03/17/18 Nebivolol HCl [Bystolic*] 5 mg PO DAILY 03/17/18 Umeclidinium Brm/Vilanterol Tr [Anoro Ellipta 62.5-25 Mcg INH] 1 puff IH DAILY 03/17/18 Ursodiol 300 mg PO BID 03/17/18 Venlafaxine HCl [Venlafaxine HCl ER] 150 mg PO DAILY WITH BREAKFAST 03/17/18 diazePAM [Diazepam] 5 mg PO BEDTIME 03/17/18 - Past Medical/Surgical History Has patient received pneumonia vaccine in the past: Yes Diabetic: No -: HTN -: [place] -: COPD -: childhood asthma -: dysphagia -: Gall bladder stones -: tonsilectomy @ 8 yrs old -: Cataract surgery - Family History Father -: Kidney disease Notes: Bryte's disease Mother -: Stroke Sister -: Hypertension, Kidney disease Brother -: Cancer Notes: cancer of esophagus and colon cancer - Social History Smoking Status: Former smoker Alcohol use: No CD- Drugs: No Caffeine use: Yes Place of Residence: Home Review of Systems 10-point ROS is otherwise unremarkable General: Weakness, Malaise Respiratory: Shortness of Breath Physical Examination - Vital Signs Temperature: 97.2 F Blood Pressure: 118/57 Pulse: 63 Respirations: 16 Pulse Ox (%): 98 - Physical Exam General: Mild distress HEENT: Atraumatic, PERRLA, Mucous membr. moist/pink, EOMI, Sclerae nonicteric Neck: Supple, 2+ carotid pulse no bruit, No LAD, Without JVD or thyroid abnormality Respiratory: Clear to auscultation bilaterally, Normal air movement Cardiovascular: Regular rate/rhythm, Normal S1 S2 Gastrointestinal: Normal bowel sounds, No tenderness Musculoskeletal: No tenderness Integumentary: No rashes Neurological: Normal gait, Normal speech, Normal strength at 5/5 x4 extr, Normal tone, Normal affect Lymphatics: No axilla or inguinal lymphadenopathy Other Physical/Emotional Findings: ANXIETY, DEPRESSION CONTROLLED ON MEDS. - Studies Laboratory Data (last 24 hrs) 06/14/18 18:15: PT 14.5 H, INR 1.24 06/14/18 18:15: WBC 16.3 H, Hgb 13.0, Hct 39.8, Plt Count 357 06/14/18 18:15: Sodium 139, Potassium 3.8, BUN 26 H, Creatinine 1.24, Glucose 145 H, Magnesium 2.1, Total Bilirubin 0.6, AST 17, ALT 15, Alkaline Phosphatase 78 Assessment and Plan - Problems (Diagnosis) (1) Atrial fibrillation, new onset Current Visit: Yes Status: Acute Plan: BETAPACE , ELIQUIS LASIX IV BID FOR A DAY. STABLE. PROGNOSIS GUARDED. HAS HAD THYROTOXICOSIS BEFORE. (2) COPD (chronic obstructive pulmonary disease) with acute bronchitis Current Visit: No Status: Chronic Plan: NOT AN ISSUE THIS TIME RESUME NEBS. - Advance Directives Does patient have a Living Will: Yes Does patient have a Durable POA for Healthcare: Yes
--- NOTE | 2018-06-15 11:37 | EKG ---
Test Date: 2018-06-15 Test Time: 07:39:55 Leasing Manager: HOLLIS MEASUREMENT RESULTS: Intervals: Rate: 58 PA: 156 QRSD: 78 QT: 494 QTc: 484 [place]: P: 33 PA: 156 QRS: 6 T: 54 INTERPRETIVE STATEMENTS: Sinus bradycardia Low voltage QRS Cannot rule out Anterior infarct, age undetermined Abnormal ECG Compared to ECG 06/14/2018 18:49:40 Low QRS voltage now present Myocardial infarct finding now present Sinus rhythm no longer present Sinus arrhythmia no longer present ST (T wave) deviation no longer present Electronically Signed On 06-15-18 11:36:18 CDT by Paul Hoffman
--- NOTE | 2018-06-15 11:38 | EKG ---
Test Date: 2018-06-14 Test Time: 18:49:40 Telemarketer: ANA MEASUREMENT RESULTS: Intervals: Rate: 87 MI: 154 QRSD: 76 QT: 372 QTc: 447 [place]: P: 36 MI: 154 QRS: 11 T: 51 INTERPRETIVE STATEMENTS: Sinus rhythm with marked sinus arrhythmia Nonspecific ST abnormality Abnormal ECG Compared to ECG 03/17/2018 09:50:02 atrial fibrillation no longer present Electronically Signed On 06-15-18 11:38:12 CDT by Paul Hoffman
--- NOTE | 2018-06-15 11:38 | EKG ---
Test Date: 2018-06-14 Test Time: 18:06:53 Field Care Advocate: ANA MEASUREMENT RESULTS: Intervals: Rate: 162 RI: QRSD: 72 QT: 292 QTc: 479 [place]: P: RI: QRS: 20 T: 50 INTERPRETIVE STATEMENTS: Atrial fibrillation with rapid ventricular response Nonspecific ST abnormality, probably digitalis effect Abnormal ECG Compared to ECG 03/17/2018 09:50:02 ST (T wave) deviation now present Sinus tachycardia no longer present Atrial premature complex(es) no longer present Aberrant conduction of supraventricular beat(s) no longer present Electronically Signed On 06-15-18 11:38:19 CDT by Paul Hoffman
[2018-06-15] MEDS ORDERED: APAP PO PRN (12:09)
[2018-06-15] MEDS ORDERED: CODEINE PO PRN (12:09)
[2018-06-15] MEDS ORDERED: HOME MED 1 EA UNK (Albuterol Sulfate [Proair Hfa] 2 PUFF) IH SCH (13:00)
--- NOTE | 2018-06-15 13:12 | CON ---
History Of Present Illness: Ms. Pradhan came to the hospital with shortness of breath. Since charles ng here she has had an elevated N-terminal proBNP and she has had diuresis and she feels somewhat bet ter. She has a history of diastolic congestive heart failure. When she came to the hospital, she wa s in atrial flutter with rapid ventricular response. She is now on Betapace and is now in sinus rhyt hm and feels much better. She is also on apixaban. I do not believe she has had atrial fib or flutt er before. She has had a normal Cardiolite, normal echocardiogram except for diastolic dysfunction a nd extremity venous study does not reveal any DVT and her chest x-ray to me reveals interstitial pulm onary edema. Physical Examination: General: She is alert, oriented, pleasant. Lungs: Her lungs are clear. Heart: Unremarkable. Regular rate and rhythm. Chest x-ray is read as normal. She has a Velcro type crackles, more in the base than the apex of the lungs. Impression: The patient probably needs a little diuresis in addition to her sotalol and apixaban. I believe the patient could probably be discharged taking sotalol and apixaban. ROHITH/JEREMIAS Voice ID: [id number] Report ID: [id number]
[2018-06-15] MEDS ORDERED: DIAZEPAM 5 MG PO SCH (21:00)
[2018-06-15] MEDS ORDERED: MIRTAZAPINE PO SCH (21:00)
[2018-06-15] MEDS ORDERED: URSODIOL 300 MG PO SCH (21:00)
[2018-06-16] MEDS: ALBUTEROL 2.5 MG/3 ML NEB SOL NEB SCH ×4 (02:00→20:45)
[2018-06-16] MEDS: cloNIDine HCl 0.1 MG TAB PO PRN ×3 (04:51→21:58)
[2018-06-16] MEDS: SOTALOL HCL 80 MG TAB PO SCH ×2 (06:00→16:19)
[2018-06-16] MEDS ORDERED: HOME MED 1 EA UNK (Venlafaxine Hcl [Venlafaxine Hcl Er] 150 MG) PO SCH (08:00)
[2018-06-16] MEDS: APIXABAN 5 MG TABLET PO SCH ×2 (08:01→21:59)
[2018-06-16] MEDS: CODEINE 30MG/APAP 300MG TAB PO PRN ×2 (08:09→18:49)
[2018-06-16] MEDS ORDERED: LOSARTAN POTASSIUM 50 MG PO SCH (09:00)
[2018-06-16] MEDS ORDERED: AMLODIPINE 5 MG TAB PO SCH (09:00)
[2018-06-16] MEDS ORDERED: ARIPiprazole 5 MG TAB PO SCH (09:00)
[2018-06-16] MEDS: FUROSEMIDE 20 MG/ 2ML VIAL IV SCH ×2 (12:50→16:19)
--- NOTE | 2018-06-16 21:07 | P.PN ---
Subjective Date of Service: 06/16/18 Chief Complaint: SHORT OF BREATH. Subjective: Improving STILL WEAK, NOT ABLE TO GO HOME YET. Review of Systems 10-point ROS is otherwise unremarkable General: Weakness, Malaise Respiratory: Shortness of Breath Physical Examination - Vital Signs Temperature: 97.8 F Blood Pressure: 165/79 Pulse: 69 Respirations: 18 Pulse Ox (%): 100 - Physical Exam General: Mild distress, Obese HEENT: Atraumatic, PERRLA, EOMI Neck: Supple, JVD not distended Respiratory: Diminished Cardiovascular: Regular rate/rhythm, Normal S1 S2 Gastrointestinal: Normal bowel sounds, No tenderness Musculoskeletal: No tenderness Integumentary: No rashes Neurological: Normal speech, Normal tone, Normal affect Lymphatics: No axilla or inguinal lymphadenopathy Other Physical/Emotional Findings: ANXIETY, DEPRESSION CONTROLLED ON MEDS. - Studies Medications List Reviewed: Yes Assessment And Plan - Current Problems (Diagnosis) (1) Atrial fibrillation, new onset Current Visit: Yes Status: Acute Plan: BETAPACE , ELIQUIS LASIX IV BID FOR A DAY. STABLE. PROGNOSIS GUARDED. HAS HAD THYROTOXICOSIS BEFORE. RESUME MEDS, STABLE. (2) COPD (chronic obstructive pulmonary disease) with acute bronchitis Current Visit: No Status: Chronic Plan: NOT AN ISSUE THIS TIME RESUME NEBS.
[2018-06-16] MEDS: DIAZEPAM 5 MG TABLET PO PRN (21:59)
[2018-06-17] MEDS: ALBUTEROL 2.5 MG/3 ML NEB SOL NEB SCH ×4 (03:05→20:00)
[2018-06-17] MEDS: CODEINE 30MG/APAP 300MG TAB PO PRN ×4 (03:21→21:29)
[2018-06-17] MEDS: SOTALOL HCL 80 MG TAB PO SCH ×2 (05:11→17:10)
[2018-06-17] MEDS: APIXABAN 5 MG TABLET PO SCH ×2 (09:20→21:29)
[2018-06-17] MEDS: FUROSEMIDE 20 MG/ 2ML VIAL IV SCH (09:20)
--- NOTE | 2018-06-17 12:48 | EKG ---
Test Date: 2018-06-17 Test Time: 11:11:59 Nurse Special: MAGO MEASUREMENT RESULTS: Intervals: Rate: 69 VA: 150 QRSD: 76 QT: 440 QTc: 471 Nelson: P: 74 VA: 150 QRS: 52 T: 75 INTERPRETIVE STATEMENTS: Sinus rhythm with fusion complexes Low voltage QRS Borderline ECG Compared to ECG 06/15/2018 07:39:55 Fusion complex(es) now present Sinus bradycardia no longer present Myocardial infarct finding no longer present Electronically Signed On 06-17-18 12:47:20 CDT by Paul Hoffman
[2018-06-17 13:33] LABS: Urine Appearance CLOUDY; Urine Bilirubin NEGATIVE (NEG); Urine Blood 1+ (NEG); Urine Color YELLOW; Urine Glucose NEGATIVE (NEG); Urine Protein NEGATIVE (NEG); Urine Urobilinogen 0.2 mg/dL (0.2-1.0)
[2018-06-17 13:46] LABS: Urine Microscopic Reflex ORDER UMIC
[2018-06-17 14:03] LABS: Urine Bacteria <20 /HPF (<20); Urine Culture Reflex Order NOT NEEDED
--- NOTE | 2018-06-17 16:24 | P.PN ---
Subjective Date of Service: 06/17/18 Chief Complaint: SHORT OF BREATH. Subjective: No new changes STILL WEAK, NOT ABLE TO GO HOME YET. STILL DYSPNEIC AND WEAK, SHE IS DIZZY AND NOT ABLE TO AMBULATE MUCH. Review of Systems 10-point ROS is otherwise unremarkable General: Weakness, Malaise Respiratory: Cough, Shortness of Breath Physical Examination - Vital Signs Temperature: 98.2 F Blood Pressure: 149/68 Pulse: 67 Respirations: 18 Pulse Ox (%): 100 - Physical Exam General: Alert, In no apparent distress, Moderate distress HEENT: Atraumatic, PERRLA, EOMI Neck: Supple, JVD not distended Respiratory: Diminished, Expiratory wheezes (AFTER I TALKED TO HER ABOUT NH I HEARD MORE OF THESE.) Cardiovascular: Regular rate/rhythm, Normal S1 S2 Gastrointestinal: Normal bowel sounds, No tenderness Musculoskeletal: No tenderness Integumentary: No rashes Neurological: Normal speech, Normal tone, Normal affect Lymphatics: No axilla or inguinal lymphadenopathy Other Physical/Emotional Findings: ANXIETY, DEPRESSION CONTROLLED ON MEDS. - Studies Medications List Reviewed: Yes Assessment And Plan - Current Problems (Diagnosis) (1) Atrial fibrillation, new onset Current Visit: Yes Status: Acute Plan: BETAPACE , ELIQUIS LASIX IV BID FOR A DAY. STABLE. PROGNOSIS GUARDED. HAS HAD THYROTOXICOSIS BEFORE. RESUME MEDS, STABLE. (2) COPD (chronic obstructive pulmonary disease) with acute bronchitis Current Visit: No Status: Chronic Plan: NOT AN ISSUE THIS TIME RESUME NEBS. ADD CHRISTEN, SHE IS WHEEZING MORE TODAY.
[2018-06-17] MEDS: ARFORMOTEROL TARTRATE 15 MCG/2 ML VIAL.NEB NEB SCH (20:00)
[2018-06-17] MEDS ORDERED: MIRTAZAPINE 15 MG PO SCH (21:00)
[2018-06-17] MEDS: DIAZEPAM 5 MG TABLET PO PRN (21:29)
[2018-06-18] MEDS: ALBUTEROL 2.5 MG/3 ML NEB SOL NEB SCH ×4 (02:00→20:00)
[2018-06-18] MEDS: CODEINE 30MG/APAP 300MG TAB PO PRN ×3 (05:24→22:07)
[2018-06-18] MEDS: SOTALOL HCL 80 MG TAB PO SCH ×2 (05:24→17:20)
[2018-06-18] MEDS: ARFORMOTEROL TARTRATE 15 MCG/2 ML VIAL.NEB NEB SCH ×2 (07:35→20:00)
[2018-06-18] MEDS: APIXABAN 5 MG TABLET PO SCH ×2 (08:08→22:07)
--- NOTE | 2018-06-18 10:52 | P.PN ---
Subjective Date of Service: 06/18/18 Chief Complaint: LOT BETTER. Subjective: Improving STILL WEAK, NOT ABLE TO GO HOME YET. STILL DYSPNEIC AND WEAK, SHE IS DIZZY AND NOT ABLE TO AMBULATE MUCH. COPD- STABLE, SHE IS LOT BETTER. CHRISTEN HELPED Review of Systems 10-point ROS is otherwise unremarkable General: Weakness, Malaise Respiratory: Shortness of Breath Physical Examination - Vital Signs Temperature: 96 F Blood Pressure: 112/57 Pulse: 61 Respirations: 20 Pulse Ox (%): 97 - Physical Exam General: Alert, In no apparent distress HEENT: Atraumatic, PERRLA, EOMI Neck: Supple, JVD not distended Respiratory: Diminished Cardiovascular: Regular rate/rhythm, Normal S1 S2 Gastrointestinal: Normal bowel sounds, No tenderness Musculoskeletal: No tenderness Integumentary: No rashes Neurological: Normal speech, Normal tone, Normal affect Lymphatics: No axilla or inguinal lymphadenopathy Other Physical/Emotional Findings: ANXIETY, DEPRESSION CONTROLLED ON MEDS. - Studies Medications List Reviewed: Yes Assessment And Plan - Current Problems (Diagnosis) (1) Atrial fibrillation, new onset Current Visit: Yes Status: Acute Plan: BETAPACE , ELIQUIS LASIX IV BID FOR A DAY. STABLE. PROGNOSIS GUARDED. HAS HAD THYROTOXICOSIS BEFORE. RESUME MEDS, STABLE. (2) COPD (chronic obstructive pulmonary disease) with acute bronchitis Current Visit: No Status: Chronic Plan: NOT AN ISSUE THIS TIME RESUME NEBS. ADD CHRISTEN, SHE IS WHEEZING MORE TODAY. RESUME CHRISTEN, WORKED GREAT.
[2018-06-18] MEDS: DIAZEPAM 5 MG TABLET PO PRN (22:08)
[2018-06-19] MEDS: ALBUTEROL 2.5 MG/3 ML NEB SOL NEB SCH ×4 (02:00→20:00)
[2018-06-19] MEDS: CODEINE 30MG/APAP 300MG TAB PO PRN ×2 (05:18→20:05)
[2018-06-19] MEDS: SOTALOL HCL 80 MG TAB PO SCH ×2 (05:20→17:00)
[2018-06-19 07:01] LABS: Magnesium 2.2 mg/dL (1.8-2.4); Potassium 4.1 mmol/L (3.5-5.1)
[2018-06-19 07:10] LABS: Absolute Lymphocytes (CBC) 1.3 K/uL (0.7-4.9); Absolute Neutrophil 7.9 K/uL (1.8-8.0); Basophils % 0.9 % (0-1.3); Hematocrit 35.1 % (36.0-45.0); Lymphocytes % 12.5 % (15.3-44.8); MPV 9.6 fL (7.6-11.3); Monocytes % 9.4 % (3.3-12.3); RBC Red Blood Cell Count 3.98 M/uL (3.86-4.86)
[2018-06-19] MEDS: ARFORMOTEROL TARTRATE 15 MCG/2 ML VIAL.NEB NEB SCH ×2 (07:30→20:00)
[2018-06-19] MEDS: APIXABAN 5 MG TABLET PO SCH ×2 (09:24→20:05)
--- NOTE | 2018-06-19 14:47 | P.PN ---
Subjective Date of Service: 06/19/18 Chief Complaint: LOT BETTER. Subjective: Improving STILL WEAK, NOT ABLE TO GO HOME YET. STILL DYSPNEIC AND WEAK, SHE IS DIZZY AND NOT ABLE TO AMBULATE MUCH. COPD- STABLE, SHE IS LOT BETTER. BRODERICKA HELPED SHE IS STILL WEAK. \ ABLE TO AMBULATE. WILL GO TO [place] IN AM. Review of Systems 10-point ROS is otherwise unremarkable General: Weakness, Malaise Respiratory: Shortness of Breath Physical Examination - Vital Signs Temperature: 97.8 F Blood Pressure: 152/67 Pulse: 72 Respirations: 16 Pulse Ox (%): 98 - Physical Exam General: Alert, In no apparent distress HEENT: Atraumatic, PERRLA, EOMI Neck: Supple, JVD not distended Respiratory: Clear to auscultation bilaterally, Normal air movement Cardiovascular: Regular rate/rhythm, Normal S1 S2 Gastrointestinal: Normal bowel sounds, No tenderness Musculoskeletal: No tenderness Integumentary: No rashes Neurological: Normal speech, Normal tone, Normal affect Lymphatics: No axilla or inguinal lymphadenopathy Other Physical/Emotional Findings: ANXIETY, DEPRESSION CONTROLLED ON MEDS. - Studies Medications List Reviewed: Yes Assessment And Plan - Current Problems (Diagnosis) (1) Atrial fibrillation, new onset Current Visit: Yes Status: Acute Plan: BETAPACE , ELIQUIS LASIX IV BID FOR A DAY. STABLE. PROGNOSIS GUARDED. HAS HAD THYROTOXICOSIS BEFORE. RESUME MEDS, STABLE. (2) COPD (chronic obstructive pulmonary disease) with acute bronchitis Current Visit: No Status: Chronic Plan: NOT AN ISSUE THIS TIME RESUME NEBS. ADD CHRISTEN, SHE IS WHEEZING MORE TODAY. RESUME CHRISTEN, WORKED GREAT. RESUME NEBS. ]CHRISTEN REALLY HELPED.
[2018-06-19] MEDS: cloNIDine HCl 0.1 MG TAB PO PRN (16:55)
[2018-06-19] MEDS: DIAZEPAM 5 MG TABLET PO PRN (20:05)
[2018-06-20] MEDS: ALBUTEROL 2.5 MG/3 ML NEB SOL NEB SCH ×3 (02:00→14:58)
[2018-06-20 04:33] LABS: Absolute Lymphocytes (CBC) 2.1 K/uL (0.7-4.9); Absolute Monocytes 1.2 K/uL (0.1-1.3); Absolute Neutrophil 7.4 K/uL (1.8-8.0); Basophils % 1.3 % (0-1.3); Hematocrit 34.4 % (36.0-45.0); Lymphocytes % 18.4 % (15.3-44.8); MPV 9.6 fL (7.6-11.3); Monocytes % 10.6 % (3.3-12.3); RBC Red Blood Cell Count 3.91 M/uL (3.86-4.86)
[2018-06-20] MEDS: SOTALOL HCL 80 MG TAB PO SCH ×2 (06:00→17:01)
[2018-06-20 06:36] VITALS: BMI 35.3
[2018-06-20] MEDS ORDERED: DEXAMETHASONE 10 MG/ML VIAL IV ONE (08:14)
[2018-06-20] MEDS: CODEINE 30MG/APAP 300MG TAB PO PRN ×2 (08:50→14:35)
[2018-06-20] MEDS: APIXABAN 5 MG TABLET PO SCH (08:50)
[2018-06-20] MEDS: ARFORMOTEROL TARTRATE 15 MCG/2 ML VIAL.NEB NEB SCH (09:42)
[2018-06-20 14:33] VITALS: TEMP 97
[2018-06-20 16:49] VITALS: O2SAT 96
--- NOTE | 2018-06-20 18:02 | P.DS ---
Admission Date: 06/14/18 Discharge Date: 06/20/18 Disposition: TRANSFER TO [facility] Discharge Condition: FAIR Reason for Admission: LOT BETTER. - Problems (1) Atrial fibrillation, new onset Current Visit: Yes Status: Acute (2) COPD (chronic obstructive pulmonary disease) with acute bronchitis Current Visit: No Status: Chronic Brief History of Present Illness: REFUGIO HAS SEVERE COPD, OXYGEN DEPENDENET COMES WITH DYSPNEA AT REST, WAS FOUND TO HAVE NEW RAPID A FIB. I TOLD TILE TRIMMER TO GIVE BETAPACE AND ELIQUIS SO WE CAN SEND HER HOME IN TWO DAYS. SHE IS A LOT BETTER TODAY. JANETH DUKE CAME WITH RAPID A FIB. SHE WAS TO GO HOME IN TWO DAYS BUT FAMILY ASKED FOR NH AND DC GOT DELAYED UNTIL TODAY. SHE IS STABLE WITH SEVERE COPD. SHE MAY COME BACK TO HOSPITAL COPD PATIENTS DO RETURN WITH SAME ILLNESS AGAIN AND AGAIN. Vital Signs/Physical Exam: Temp Pulse Resp BP Pulse Ox 97.0 F 59 18 98/54 L 98 06/20/18 12:00 06/20/18 12:00 06/20/18 12:00 06/20/18 12:00 06/20/18 12:00 Other Physical/Emotional Findings: ANXIETY, DEPRESSION CONTROLLED ON MEDS. Laboratory Data at Discharge: WBC 11.3 K/uL (4.3-10.9) H 06/20/18 03:41 Hgb 11.1 g/dL (12.0-15.0) L 06/20/18 03:41 Hct 34.4 % (36.0-45.0) L 06/20/18 03:41 Plt Count 288 K/uL (152-406) 06/20/18 03:41 PT 14.5 SECONDS (9.5-12.5) H 06/14/18 18:15 INR 1.24 06/14/18 18:15 Sodium 140 mmol/L (136-145) 06/20/18 03:41 Potassium 4.0 mmol/L (3.5-5.1) 06/20/18 03:41 BUN 22 mg/dL (7-18) H 06/20/18 03:41 Creatinine 0.99 mg/dL (0.55-1.3) 06/20/18 03:41 Glucose 95 mg/dL (74-106) 06/20/18 03:41 Magnesium 2.2 mg/dL (1.8-2.4) 06/19/18 06:37 Total Bilirubin 0.6 mg/dL (0.2-1.0) 06/14/18 18:15 AST 17 U/L (15-37) 06/14/18 18:15 ALT 15 U/L (12-78) 06/14/18 18:15 Alkaline Phosphatase 78 U/L (45-117) 06/14/18 18:15 Troponin I < 0.02 ng/mL (0.0-0.045) 06/15/18 03:33 Home Medications: ARIPiprazole [Abilify*] 5 mg PO DAILY 03/17/18 Albuterol Sulfate [Proair Hfa] 2 puff IH QID 03/17/18 Amlodipine [Norvasc*] 5 mg PO DAILY 03/17/18 Codeine/APAP [Tylenol #3*] 1 tab PO Q4HP PRN 03/17/18 Losartan Potassium [Cozaar*] 50 mg PO DAILY 03/17/18 Mirtazapine [Remeron*] 50 mg PO BEDTIME 03/17/18 Umeclidinium Brm/Vilanterol Tr [Anoro Ellipta 62.5-25 Mcg INH] 1 puff IH DAILY 03/17/18 Ursodiol 300 mg PO BID 03/17/18 Venlafaxine HCl [Venlafaxine HCl ER] 150 mg PO DAILY WITH BREAKFAST 03/17/18 diazePAM [Diazepam] 5 mg PO BEDTIME 03/17/18 Apixaban [Eliquis] 5 mg PO BID tablet 06/20/18 Arformoterol Tartrate [Brovana] 15 mcg NEB BIDRESP vial.neb 06/20/18 Sotalol HCl [Betapace*] 80 mg PO BID 6AM 6PM tab 06/20/18 cloNIDine HCl [Catapres*] 0.1 mg PO Q2HP PRN tab 06/20/18
[2018-06-20 18:04] VITALS: BP 133/73
== END 2018-06-20 19:15 | DRG 310 ==
LOC: ER 17:59 → ERHOLD 18:21 → 4TH 20:14
PROVIDERS: ADMIT Internal Medicine; ATTEND Internal Medicine
DX: I48.91 Unspecified atrial fibrillation (principal); J44.9 Chronic obstructive pulmonary disease, unspecified; J20.9 Acute bronchitis, unspecified; Z87.891 Personal history of nicotine dependence; F41.9 Anxiety disorder, unspecified; F32.9 Major depressive disorder, single episode, unspecified
CPT/HCPCS: 36415; 71045; 80048; 80076; 81003; 81015; 83735; 83880; 84484; 85025; 85610; 93005; 93970; 94640; 97116; 97163; 97530; 99285; J1100; J1940; J7605

== ENCOUNTER 2018-06-22 14:07 | Inpatient (IN) | payer OTHER, MEDICARE ==
[2018-06-22 14:33] LABS: Arterial Blood Carboxyhemoglob 0.4 % (0-1.5); Blood Gas Oxyhemoglobin 97.6 % (94-97); Blood O2 Saturation 98.7 % (92-98.5)
[2018-06-22] MEDS ORDERED: FENTANYL CITR 100 MCG/2 ML ONE (14:52)
[2018-06-22] MEDS ORDERED: MIDAZOLAM HCL 2 MG/2 ML INJ ONE ×2 (14:52→14:53)
[2018-06-22] MEDS ORDERED: METHYLPREDNISOLONE 125 MG INJ ONE (14:56)
[2018-06-22] MEDS ORDERED: ALBUTEROL 2.5 MG/3 ML NEB SOL ONE (14:56)
[2018-06-22 15:02] LABS: Absolute Monocytes 0.7 K/uL (0.1-1.3); Absolute Neutrophil 13.3 K/uL (1.8-8.0); Basophils % 0.7 % (0-1.3); Eosinophils % 0.2 % (0-4.4); Hematocrit 36.4 % (36.0-45.0); Lymphocytes % 6.4 % (15.3-44.8); MPV 9.5 fL (7.6-11.3); Monocytes % 4.7 % (3.3-12.3); RBC Red Blood Cell Count 4.08 M/uL (3.86-4.86)
--- NOTE | 2018-06-22 15:02 | RAD REPORT ---
EXAM DESCRIPTION: CT - Head Brain Wo Cont - 06/22/2018 2:52 pm CLINICAL HISTORY: AMS Headache, drowsiness COMPARISON: Ct Stroke Brain Wo Cont dated 01/08/2017 TECHNIQUE: All CT scans are performed using dose optimization technique as appropriate and may inclu de automated exposure control or mA/KV adjustment according to patient size. FINDINGS: No intracranial hemorrhage, hydrocephalus or extra-axial fluid collection.Moderate general ized brain atrophy is present with moderate periventricular and deep white matter chronic microvascul ar ischemic changes.No areas of brain edema or evidence of midline shift. The paranasal sinuses and mastoids are clear. The calvarium is intact. IMPRESSION: No acute intracranial abnormality.
--- NOTE | 2018-06-22 15:10 | RAD REPORT ---
EXAM DESCRIPTION: CT - Chest For Pe Angio - 06/22/2018 2:58 pm CLINICAL HISTORY: Chest pain. DYSPNEA COMPARISON: Chest For Pe Angio dated 12/08/2016 TECHNIQUE: CT angiogram of the pulmonary arteries was performed with MIP. All CT scans are performed using dose optimization technique as appropriate and may include automated exposure control or mA/KV adjustment according to patient size. FINDINGS: No evidence of pulmonary thromboembolism. The thoracic aorta is suboptimally evaluated due to phase of contrast. The thyroid gland is mildly en larged. Tip of the ET tube is above the norma. Enteric tube descends into the stomach. Small bilateral pleural effusions are present. Diffuse COPD is evident. Mild airspace opacity is pres ent in both upper lobes, greater on the right which may represent interstitial pneumonia or pulmonary edema. No concerning bony finding. IMPRESSION: No evidence of pulmonary thromboembolism. Mild airspace pulmonary opacities are seen in both upper lobes anteriorly which may represent interst itial pneumonitis or interstitial pulmonary edema. Small bilateral pleural effusions are present.
[2018-06-22 15:14] LABS: Protime INR 1.97
[2018-06-22 15:24] LABS: Albumin 2.8 g/dL (3.4-5.0); Bilirubin Direct 0.1 mg/dL (0-0.2); Bilirubin Total 0.4 mg/dL (0.2-1.0); Magnesium 2.2 mg/dL (1.8-2.4); Potassium 4.9 mmol/L (3.5-5.1); Protein, Total 7.3 g/dL (6.4-8.2)
[2018-06-22 15:26] LABS: Troponin (Emerg Dept Use Only) 1.26 ng/mL (0.0-0.045)
--- NOTE | 2018-06-22 15:27 | RAD REPORT ---
EXAM DESCRIPTION: Shailesh Single View06/22/2018 3:18 pm CLINICAL HISTORY: Shortness of breath COMPARISON: June 14, 2018 FINDINGS: Endotracheal tube has its tip a 4.5 centimeters above the norma. Nasogastric tube has its tip in the stomach Mild to moderate right and mild left pulmonary opacities may represent pulmonary edema or pneumonia The heart is moderately enlarged. Small pleural effusions
[2018-06-22] MEDS ORDERED: CEFTRIAXONE/SWI 1gm 1 GM/10 ML SYR ONE (15:41)
[2018-06-22] MEDS ORDERED: NA CHLORIDE 0.9% 1,000 ML ONE (15:41)
[2018-06-22] MEDS ORDERED: PROPOFOL 1,000 MG/100 ML VIAL IV ONE ×2 (15:43→20:51)
[2018-06-22 16:01] LABS: Urine Blood 2+ (NEG); Urine Glucose NEGATIVE (NEG); Urine Protein 3+ (NEG); Urine Specific Gravity 1.025 (1.005-1.030)
--- OUTSIDE RECORDS SUMMARY | 2018-06-22 16:32 | XMS REPORT | Clinical Summary ---
:1935 Author Organization [facility] Address [address] [place] [address] Care Team Providers Name Role Phone Sharpdavid [...] Not on file Results Not on fileafter 06/21/2017 Insurance Payer Benefit Plan / Group Subscriber ID Type Phone Address MEDICARE MEDICARE A B xxxxxxxxxx Medicare MCR SUPPLEMENT/INDIVIDUAL AARP/[facility] xxxxxxxxxxx [address]ón Holden (Home) [address] [place] [address] Advance Directives For more information, please contact:[address] [phone] Code Status Date Activated Date Inactivated Comments Full Code 01/09/2017 3:57 AM 01/13/2017 2:09 PM This code status was determined by: Patient
--- OUTSIDE RECORDS SUMMARY | 2018-06-22 16:32 | XMS REPORT ---
:1935 [facility] Address [address] [place] [address] Dr. Negro [address] [place] [id number] Care Team Providers Name Role Phone HAILEE DOWELL Unavailable Unavailable Problems This patient has no known problems. Allergies, Adverse Reactions, Alerts This patient has no known allergies or adverse reactions. Medications This patient has no known medications. Results Test Description Test Time Test Comments Text Results Atomic Results Result Comments BLOOD CULTURE 2017-01-15 00:00:00 Test Item Value Reference Range Comments CULTURE (BEAKER) (test cuxi=2822) No growth in 5 days BLOOD [id number] 00:00:00 Test Item Value Reference Range Comments CULTURE (BEAKER) (test lwba=7418) No growth in 5 days CLOSTRIDIUM DIFFICILE TOXIN [id number] 17:09:00 Test Item Value Reference Range Comments CLOSTRIDIUM DIFFICILE TOXIN, PCR (BEAKER) (test Not Detected Not Detected cckx=0776) This qualitative real-time polymerase chain reaction assay [...] a positive result is not recommended.BASIC METABOLIC [id number] 10:06:00 Test Item Value Reference Range Comments SODIUM (BEAKER) (test 138 meq/L 136-145 edas=373) POTASSIUM (BEAKER) (test 4.2 meq/L 3.5-5.1 Specimen slightly ddsc=987) hemolyzed CHLORIDE (BEAKER) (test 104 meq/L 98-107 qjfd=432) CO2 (BEAKER) (test 24 meq/L 22-29 mvcj=549) BLOOD UREA NITROGEN 26 mg/dL 7-21 (BEAKER) (test jton=051) CREATININE (BEAKER) (test 0.94 mg/dL 0.57-1.25 Specimen slightly ejjg=939) hemolyzed GLUCOSE RANDOM (BEAKER) 100 mg/dL 70-105 (test ixge=266) CALCIUM (BEAKER) (test 8.8 mg/dL 8.4-10.2 fwnk=136) EGFR (BEAKER) (test 57 mL/min/1.73 sq m ESTIMATED GFR IS NOT knxh=5682) ACCURATE CREATININE CLEARANCE IN PREDICTING GLOMERULAR FILTRATION RATE. ESTIMATED GFR IS NOT APPLICABLE FOR DIALYSIS PATIENTS. CBC W/PLT COUNT & AUTO [id number] 09:48:00 Test Item Value Reference Range Comments WHITE BLOOD CELL COUNT 12.9 K/ L 3.5-10.5 (BEAKER) (test gyxt=332) RED BLOOD CELL COUNT (BEAKER) 4.59 M/ L 3.93-5.22 (test zmew=906) HEMOGLOBIN (BEAKER) (test 13.4 GM/DL 11.2-15.7 zuly=551) HEMATOCRIT (BEAKER) (test 43.1 % 34.1-44.9 bbyt=031) MEAN CORPUSCULAR VOLUME 93.9 fL 79.4-94.8 (BEAKER) (test jycy=939) MEAN CORPUSCULAR HEMOGLOBIN 29.2 pg 25.6-32.2 (BEAKER) (test elkh=431) MEAN CORPUSCULAR HEMOGLOBIN 31.1 GM/DL 32.2-35.5 CONC (BEAKER) (test zzvf=390) RED CELL DISTRIBUTION WIDTH 12.8 % 11.7-14.4 (BEAKER) (test vofo=292) PLATELET COUNT (BEAKER) (test 286 K/CU MM 150-450 .Discordant from previous kjbi=785) results. Clinical correlation suggested. MEAN PLATELET VOLUME (BEAKER) 10.3 fL 9.4-12.3 (test hrfu=481) NUCLEATED RED BLOOD CELLS 0 /100 WBC 0-0 (BEAKER) (test kurr=355) NEUTROPHILS RELATIVE PERCENT 70 % (BEAKER) (test iyfh=005) LYMPHOCYTES RELATIVE PERCENT 17 % (BEAKER) (test xbrp=600) MONOCYTES RELATIVE PERCENT 8 % (BEAKER) (test jrha=207) EOSINOPHILS RELATIVE PERCENT 3 % (BEAKER) (test xedl=637) BASOPHILS RELATIVE PERCENT 1 % (BEAKER) (test cdlu=530) NEUTROPHILS ABSOLUTE COUNT 9.04 K/ L 1.56-6.13 (BEAKER) (test aghd=821) LYMPHOCYTES ABSOLUTE COUNT 2.22 K/ L 1.18-3.74 (BEAKER) (test xthd=262) MONOCYTES ABSOLUTE COUNT 0.99 K/ L 0.24-0.36 (BEAKER) (test crjl=382) EOSINOPHILS ABSOLUTE COUNT 0.32 K/ L 0.04-0.36 (BEAKER) (test mvlq=837) BASOPHILS ABSOLUTE COUNT 0.15 K/ L 0.01-0.08 (BEAKER) (test wvph=659) IMMATURE 1 % 0-1 GRANULOCYTES-RELATIVE PERCENT (BEAKER) (test ufjr=6969) RAD, FOOT, 2 VIEWS, [id number] 16:52:00Reason for exam:->pain with ambulationFINAL REPORT Radiograph [...] Peterson Verified Date/Time: 01/12/2017 16:52:45 Reading Location: [address] Consult Reading Room T4, [id number] 16:26:00 Test Item Value Reference Range Comments FREE T4 (BEAKER) (test mwqe=144) 1.12 ng/dL 0.70-1.48 TSH/FREE T4 IF [id number] 15:46:00 Test Item Value Reference Range Comments THYROID STIMULATING HORMONE (BEAKER) (test 0.03 uIU/mL 0.35-4.94 iajo=084) BASIC METABOLIC [id number] 15:35:00 Test Item Value Reference Range Comments SODIUM (BEAKER) (test 136 meq/L 136-145 ghaa=627) POTASSIUM (BEAKER) (test 4.1 meq/L 3.5-5.1 xctx=726) CHLORIDE (BEAKER) (test 99 meq/L 98-107 rnut=381) CO2 (BEAKER) (test 24 meq/L 22-29 bske=403) BLOOD UREA NITROGEN 32 mg/dL 7-21 (BEAKER) (test jvzx=584) CREATININE (BEAKER) (test 1.12 mg/dL 0.57-1.25 vutp=596) GLUCOSE RANDOM (BEAKER) 164 mg/dL 70-105 (test mpwr=127) CALCIUM (BEAKER) (test 10.2 mg/dL 8.4-10.2 llxk=059) EGFR (BEAKER) (test 46 mL/min/1.73 sq m ESTIMATED GFR IS NOT bjcw=4733) ACCURATE CREATININE CLEARANCE IN PREDICTING GLOMERULAR FILTRATION RATE. ESTIMATED GFR IS NOT APPLICABLE FOR DIALYSIS PATIENTS. CBC W/PLT COUNT & AUTO [id number] 15:06:00 Test Item Value Reference Range Comments WHITE BLOOD CELL COUNT (BEAKER) (test ocge=012) 17.4 K/ L 3.5-10.5 RED BLOOD CELL COUNT (BEAKER) (test jtsp=886) 4.93 M/ L 3.93-5.22 HEMOGLOBIN (BEAKER) (test pmtd=380) 14.0 GM/DL 11.2-15.7 HEMATOCRIT (BEAKER) (test gpfj=982) 44.8 % 34.1-44.9 MEAN CORPUSCULAR VOLUME (BEAKER) (test lxsf=081) 90.9 fL 79.4-94.8 MEAN CORPUSCULAR HEMOGLOBIN (BEAKER) (test 28.4 pg 25.6-32.2 fmea=048) MEAN CORPUSCULAR HEMOGLOBIN CONC (BEAKER) (test 31.3 GM/DL 32.2-35.5 njip=262) RED CELL DISTRIBUTION WIDTH (BEAKER) (test 12.9 % 11.7-14.4 dwmb=450) PLATELET COUNT (BEAKER) (test kfne=936) 360 K/CU MM 150-450 MEAN PLATELET VOLUME (BEAKER) (test agnj=991) 10.5 fL 9.4-12.3 NUCLEATED RED BLOOD CELLS (BEAKER) (test 0 /100 WBC 0-0 sgyg=529) NEUTROPHILS RELATIVE PERCENT (BEAKER) (test 82 % gchk=834) LYMPHOCYTES RELATIVE PERCENT (BEAKER) (test 11 % vrgt=594) MONOCYTES RELATIVE PERCENT (BEAKER) (test 4 % xjya=655) EOSINOPHILS RELATIVE PERCENT (BEAKER) (test 0 % khbh=956) BASOPHILS RELATIVE PERCENT (BEAKER) (test 1 % evbc=038) NEUTROPHILS ABSOLUTE COUNT (BEAKER) (test 14.33 K/ L 1.56-6.13 jdbq=368) LYMPHOCYTES ABSOLUTE COUNT (BEAKER) (test 1.97 K/ L 1.18-3.74 pwds=813) MONOCYTES ABSOLUTE COUNT (BEAKER) (test 0.71 K/ L 0.24-0.36 zrvv=054) EOSINOPHILS ABSOLUTE COUNT (BEAKER) (test 0.05 K/ L 0.04-0.36 takw=467) BASOPHILS ABSOLUTE COUNT (BEAKER) (test 0.16 K/ L 0.01-0.08 kcoa=764) IMMATURE GRANULOCYTES-RELATIVE PERCENT (BEAKER) 1 % 0-1 (test dhgo=2533) URINE [id number] 08:21:00 Test Item Value Reference Range Comments CULTURE (BEAKER) (test rvml=4499) Amikacin (test code=1) Ampicillin + Sulbactam (test code=6) Aztreonam (test code=32) Cefepime (test code=51) Cefoxitin (test code=68) Ceftazidime (test code=27) Ceftriaxone (test code=52) Ertapenem (test code=38) Gentamicin (test code=18) Levofloxacin (test code=22) Meropenem (test code=34) Nitrofurantoin (test code=23) Piperacillin + Tazobactam (test code=29) Tetracycline (test code=2) Tobramycin (test code=25) Trimethoprim + Sulfamethoxazole (test code=47) CULTURE (BEAKER) (test kbbl=9853) >100,000 col/mL Proteus mirabilis <10,000 col/mL skin ranjith<10,000 col/mL gram negative rods of a second typeMR, BRAIN, WITHOUT [id number] 16:03:00Reason for exam:->Ischemic Stroke EvaluationFINAL REPORT MRI [...] MDReport Verified Date/Time: 16:03:04 Reading Location: [address] Neuro Reading Room URINALYSIS W/ [id number] 15:35:00 Test Item Value Reference Range Comments COLOR (BEAKER) (test wvsh=011) Light Yellow CLARITY (BEAKER) (test ptzw=832) Hazy SPECIFIC GRAVITY UA (BEAKER) (test uruu=234) 1.010 1.001-1.035 PH UA (BEAKER) (test rjfk=045) 8.0 5.0-8.0 PROTEIN UA (BEAKER) (test arlq=162) 20 mg/dL Negative GLUCOSE UA (BEAKER) (test taje=995) Negative Negative KETONES UA (BEAKER) (test wzrs=305) Negative Negative BILIRUBIN UA (BEAKER) (test vlwu=868) Negative Negative BLOOD UA (BEAKER) (test hbqg=000) Negative Negative NITRITE UA (BEAKER) (test ymhy=906) Negative Negative LEUKOCYTE ESTERASE UA (BEAKER) (test atpk=300) Large Negative UROBILINOGEN UA (BEAKER) (test yhkg=186) 0.2 mg/dL 0.2-1.0 RBC UA (BEAKER) (test fcjd=138) 2 /HPF WBC UA (BEAKER) (test mitz=316) 87 /HPF SQUAMOUS EPITHELIAL (BEAKER) (test ipac=140) 3 /HPF SOURCE(BEAKER) (test fxlr=4863) Urine, Voided URINALYSIS W/ REFLEX URINE [id number] 15:35:00 Test Item Value Reference Range Comments COLOR (BEAKER) (test afgf=223) Light Yellow CLARITY (BEAKER) (test kyvy=837) Hazy SPECIFIC GRAVITY UA (BEAKER) (test gdte=293) 1.010 1.001-1.035 PH UA (BEAKER) (test kopj=180) 8.0 5.0-8.0 PROTEIN UA (BEAKER) (test ticw=310) 20 mg/dL Negative GLUCOSE UA (BEAKER) (test ydzk=981) Negative Negative KETONES UA (BEAKER) (test rvvp=486) Negative Negative BILIRUBIN UA (BEAKER) (test zqrm=157) Negative Negative BLOOD UA (BEAKER) (test zukj=358) Negative Negative NITRITE UA (BEAKER) (test bjwu=549) Negative Negative LEUKOCYTE ESTERASE UA (BEAKER) (test fehh=460) Large Negative UROBILINOGEN UA (BEAKER) (test hpcw=628) 0.2 mg/dL 0.2-1.0 RBC UA (BEAKER) (test bkgk=761) 2 /HPF WBC UA (BEAKER) (test lcev=300) 87 /HPF SQUAMOUS EPITHELIAL (BEAKER) (test jmsj=676) 3 /HPF SOURCE(BEAKER) (test eqmu=4769) Urine, Voided [id number] 14:30:00 Test Item Value Reference Range Comments RPR SCREEN (BEAKER) (test nxje=930) Nonreactive Nonreactive HEMOGLOBIN [id number] 10:58:00 Test Item Value Reference Range Comments HEMOGLOBIN A1C (BEAKER) (test xcwe=060) 5.8 % 4.3-6.1 SEDIMENTATION [id number] 10:44:00 Test Item Value Reference Range Comments SEDIMENTATION RATE, ERYTHROCYTE (BEAKER) (test 52 mm/HR 0-40 wcve=788) T4, [id number] 09:16:00 Test Item Value Reference Range Comments FREE T4 (BEAKER) (test xuhg=007) 0.94 ng/dL 0.70-1.48 TSH/FREE T4 IF [id number] 08:42:00 Test Item Value Reference Range Comments THYROID STIMULATING HORMONE (BEAKER) (test 0.05 uIU/mL 0.35-4.94 bymb=156) VITAMIN B12 AND [id number] 08:37:00 Test Item Value Reference Range Comments VITAMIN B12 (BEAKER) (test nnnq=590) 829 pg/mL 213-816 FOLATE (BEAKER) (test kiua=670) 15.9 ng/mL >=7.0 [id number] 08:36:00 Test Item Value Reference Range Comments HOMOCYSTEINE (BEAKER) (test tdzk=576) 10.2 umol/L 5.1-15.4 LIPID [id number] 08:26:00 Test Item Value Reference Range Comments TRIGLYCERIDES (BEAKER) (test nyaz=464) 86 mg/dL CHOLESTEROL (BEAKER) (test nxqc=135) 194 mg/dL HDL CHOLESTEROL (BEAKER) (test gvuj=954) 66 mg/dL LDL CHOLESTEROL CALCULATED (BEAKER) (test 111 mg/dL qsij=710) Triglyceride Reference Range: Low Risk <150 Borderline 150- 199 High Risk 200-499 Very High Risk >=500Cholesterol Reference Range: Low Risk <200 Borderline 200-239 High Risk > 240HDL Cholesterol Reference Range: Low Risk >=60 High Risk <40LDL Cholesterol Reference Range: Optimal <100 Near Optimal 100-129 Borderline 130-159 High 160-189 Very High >=190 FastingBASIC METABOLIC [id number] 08:26:00 Test Item Value Reference Range Comments SODIUM (BEAKER) (test 136 meq/L 136-145 tbnh=420) POTASSIUM (BEAKER) (test 4.7 meq/L 3.5-5.1 oejj=623) CHLORIDE (BEAKER) (test 99 meq/L 98-107 hhek=800) CO2 (BEAKER) (test 24 meq/L 22-29 yzxq=343) BLOOD UREA NITROGEN 27 mg/dL 7-21 (BEAKER) (test qknq=675) CREATININE (BEAKER) (test 1.04 mg/dL 0.57-1.25 uvkz=293) GLUCOSE RANDOM (BEAKER) 133 mg/dL 70-105 (test aacq=006) CALCIUM (BEAKER) (test 8.8 mg/dL 8.4-10.2 tdol=500) EGFR (BEAKER) (test 51 mL/min/1.73 sq m ESTIMATED GFR IS NOT wbpo=0911) ACCURATE CREATININE CLEARANCE IN PREDICTING GLOMERULAR FILTRATION RATE. ESTIMATED GFR IS NOT APPLICABLE FOR DIALYSIS PATIENTS. FastingHEPATIC FUNCTION [id number] 08:26:00 Test Item Value Reference Range Comments TOTAL PROTEIN (BEAKER) (test dwcs=798) 6.8 gm/dL 6.0-8.3 ALBUMIN (BEAKER) (test pogf=8209) 3.4 g/dL 3.5-5.0 BILIRUBIN TOTAL (BEAKER) (test ykvz=912) 0.6 mg/dL 0.2-1.2 BILIRUBIN DIRECT (BEAKER) (test isqc=721) 0.2 mg/dL 0.1-0.5 ALKALINE PHOSPHATASE (BEAKER) (test pqcg=493) 67 U/L 40-150 AST (SGOT) (BEAKER) (test yeoy=361) 16 U/L 5-34 ALT (SGPT) (BEAKER) (test xvey=421) 11 U/L 6-55 FastingCREATINE KINASE (CK), TOTAL AND [id number] 08:26:00 Test Item Value Reference Range Comments CREATINE KINASE TOTAL (BEAKER) (test anpj=912) 30 U/L 29-200 CREATINE KINASE-MB (BEAKER) (test jrcg=424) 0.8 ng/mL 0.0-6.6 CREATINE KINASE-MB INDEX (BEAKER) (test qmda=334) 2.7 % CK-MB Reference Range:<6.7 Normal6.7-10.0 Borderline>10.0 AbnormalFastingFastingC-REACTIVE [id number] 08:26:00 Test Item Value Reference Range Comments C-REACTIVE PROTEIN (BEAKER) (test iwjk=939) 1.74 mg/dL 0.00-0.50 FastingCBC W/PLT COUNT & AUTO [id number] 07:57:00 Test Item Value Reference Range Comments WHITE BLOOD CELL COUNT (BEAKER) (test pfrw=515) 16.6 K/ L 3.5-10.5 RED BLOOD CELL COUNT (BEAKER) (test rsnb=897) 4.21 M/ L 3.93-5.22 HEMOGLOBIN (BEAKER) (test opcc=102) 12.3 GM/DL 11.2-15.7 HEMATOCRIT (BEAKER) (test poqn=378) 38.4 % 34.1-44.9 MEAN CORPUSCULAR VOLUME (BEAKER) (test okys=298) 91.2 fL 79.4-94.8 MEAN CORPUSCULAR HEMOGLOBIN (BEAKER) (test 29.2 pg 25.6-32.2 tdhu=937) MEAN CORPUSCULAR HEMOGLOBIN CONC (BEAKER) (test 32.0 GM/DL 32.2-35.5 zlbh=724) RED CELL DISTRIBUTION WIDTH (BEAKER) (test 12.9 % 11.7-14.4 oqqt=325) PLATELET COUNT (BEAKER) (test shio=678) 296 K/CU MM 150-450 MEAN PLATELET VOLUME (BEAKER) (test ktgu=732) 10.3 fL 9.4-12.3 NUCLEATED RED BLOOD CELLS (BEAKER) (test 0 /100 WBC 0-0 bhii=891) NEUTROPHILS RELATIVE PERCENT (BEAKER) (test 78 % nypv=636) LYMPHOCYTES RELATIVE PERCENT (BEAKER) (test 15 % nfkl=972) MONOCYTES RELATIVE PERCENT (BEAKER) (test 5 % duyb=481) EOSINOPHILS RELATIVE PERCENT (BEAKER) (test 1 % dbna=110) BASOPHILS RELATIVE PERCENT (BEAKER) (test 1 % zwpl=410) NEUTROPHILS ABSOLUTE COUNT (BEAKER) (test 12.92 K/ L 1.56-6.13 hbjs=446) LYMPHOCYTES ABSOLUTE COUNT (BEAKER) (test 2.40 K/ L 1.18-3.74 zzgo=101) MONOCYTES ABSOLUTE COUNT (BEAKER) (test 0.90 K/ L 0.24-0.36 evlr=979) EOSINOPHILS ABSOLUTE COUNT (BEAKER) (test 0.08 K/ L 0.04-0.36 gtdd=622) BASOPHILS ABSOLUTE COUNT (BEAKER) (test 0.11 K/ L 0.01-0.08 kbgk=742) IMMATURE GRANULOCYTES-RELATIVE PERCENT (BEAKER) 1 % 0-1 (test rkvi=6938) TROPONIN [id number] 07:47:00 Test Item Value Reference Range Comments TROPONIN I (BEAKER) (test xphb=788) 0.01 ng/mL 0.00-0.03 Troponin I (TnI) levels [...]
--- NOTE | 2018-06-22 16:52 | ER ---
Nurse's Notes [facility] Name: Elida Pradhan Age: 82 yrs Sex: Female : 1935 Arrival Date: 06/22/2018 Time: 14:12 Bed 3 Private MD: Slade Saldana V Diagnosis: Non-ST elevation (NSTEMI) myocardial infarction;Acute respiratory failure;Acidosis Presentation: 06/22 14:05 Presenting complaint: EMS states: pt is from [facility], was hwere about a week ago, tw2 family was there to visit and noticed she wasn't breathing correctly, pt was guppy breathing, systolic in 200's, 88% on room air, we opted for intubation, before intubation we gave 3mg versed, 100 fentanyl, and 150 ketamine, and then another 50mg of fentanyl prior to arrival, 7.5 et tube 22 at teeth, 14fr NG tube to right nare, IO to left tibia. Transition of care: patient was not received from another setting of care. Onset of symptoms was June 22, 2018. Risk Assessment: Do you want to hurt yourself or someone else? Patient reports no desire to harm self or others. Care prior to arrival: Assisted ventilation, Oxygen administered. via AMBU bag. 14:05 Acuity: TALYA 1 tw2 14:05 Method Of Arrival: EMS: [facility] tw2 19:32 Initial Sepsis Screen: Does the patient meet any 2 criteria? Altered Mental Status. tl2 Does the patient have a suspected source of infection? No. Patient's initial sepsis screen is negative. Note initial sepsis screen not done at triage, sepsis screen reflects patient's condition at this time. Historical: - Allergies: 15:50 Cipro; tw2 15:50 Levaquin; tw2 - PMHx: 15:50 CHF; COPD; DYSPHAGIA; Hypertension; Myocardial infarction; tw2 - PSHx: 15:50 None; tw2 - Immunization history:: Adult Immunizations. - Social history:: Smoking status: . - Ebola Screening: : Patient denies travel to an Ebola-affected area in the 21 days before illness onset. Screenin:15 Sepsis Screening: . Infection: Patient has suspected or documented infection. SIRS - sg Systemic Inflammatory Response Syndrome: 2 or more indicates positive screen: [heart rate greater than 90 beats per minute] [respiratory rate is greater than 20 breaths per minute] Provider has been notified and patient further screened based on infection criteria. Organ Dysfunction: One or more within 3 days of new infection: [Respiratory: SaO2 less than 90% or increasing O2 requirements] [CHIEF CLIENT OFFICER: altered consciousness (unrelated to primary neuropathology); GCS <= 12]. Pneumonia Screening: Shortness of Breath (3pts), Hx. of Pneumonia (2pts). Total Score: 3 Pts. or > (High Risk), Pneumonia Protocol Initiated. 15:49 Abuse screen: Denies threats or abuse. Nutritional screening: No deficits noted. tw2 Tuberculosis screening: No symptoms or risk factors identified. Fall Risk Secondary diagnosis (15 points) impaired mobility. Assessment: 14:25 Reassessment: NG tube that was inserted by EMS noted to be coiled up in pt mouth, NG sg tube dc'd from R Nare. 14:55 General: Appears distressed, ill, obese, well developed, well nourished, Behavior is sg unresponsive. Pain: Unable to use pain scale. Patient is intubated. pt responsive to tactile stimuli, Eren PIZARRO notified orders received for Versed IVP, and Fentanyl IVP. 14:55 Neuro: Level of Consciousness is lethargic, unresponsive, Oriented to none. sg Cardiovascular: Capillary refill is brisk in bilateral fingers Patient's skin is warm and dry. Respiratory: Airway is patent via oral intubation Trachea midline Respiratory effort is relaxed, assisted with Mechanical ventilation. GI: Abdomen is round non-distended, obese. : Genitalia appear normal. EENT: Eyes are tearing on right eye and left eye Nares are clear bilaterally Oral mucosa is moist. Throat is clear. Derm: Skin is intact, is thin, Skin is clammy, Skin is pale, Skin temperature is cool. Musculoskeletal: No signs and/or symptoms reported regarding the musculoskeletal system. 16:50 Reassessment: Patient appears in no apparent distress at this time. Patient and/or sg family updated on plan of care and expected duration. Pain level reassessed. pt family at bedside, pt opens eyes to verbal stimuli, the propofol dosage has been increased to IVP to help with sedation. 17:38 Reassessment: Patient appears in no apparent distress at this time. no family at sg bedside at this time, pt curtain remains open for visualization by staff, pt remains calm and quiet at this time, ETT in place, VSS, awaiting a bed assignment at this time. 17:52 Reassessment: TRANSIT MIX OPERATOR Cierra and TRANSIT MIX OPERATOR Tasia at bedside. sg 19:27 Reassessment: pt has room assignment to ICU, will attempt to call report after shift tl2 change. General: Appears in no apparent distress. Behavior is unresponsive. Pain: Unable to use pain scale. Patient is intubated. Neuro: Level of Consciousness is unresponsive, Oriented to none. Cardiovascular: Heart tones S1 S2 present Capillary refill < 3 seconds Patient's skin is warm and dry. Rhythm is sinus rhythm. Respiratory: Airway is patent via oral intubation Trachea midline Respiratory effort is relaxed, assisted with mechanical ventilation Breath sounds are clear bilaterally. GI: Abdomen is round non-distended, Oral gastric tube in place, to suction. : Francisco in place to gravity drainage. EENT:. Derm: Skin is pink, warm \T\ dry. Skin temperature is cool. Musculoskeletal: No signs and/or symptoms reported regarding the musculoskeletal system. Vital Signs: 14:10 BP 144 / 100; Pulse 165; Resp 16 A; Pulse Ox 97% on ETT ambu; tw2 14:25 Temp 97.7; tw2 14:36 BP 158 / 131; Pulse 85; Resp 16; Pulse Ox 99% on 40% FiO2 ETT vent; tw2 14:50 Weight 111.13 kg; sg 15:25 BP 130 / 79; Pulse 63; Resp 16; Pulse Ox 100% on ETT vent; tw2 16:00 BP 131 / 71; Pulse 69 MON; Resp 18; Pulse Ox 99% on 40% FiO2 ETT vent; sg 16:15 BP 142 / 69; Pulse 65 MON; Resp 18; Pulse Ox 99% on 40% FiO2 ETT vent; sg 16:40 BP 147 / 72; Pulse 66; Resp 17; Pulse Ox 100% on ETT vent; sg 17:21 BP 129 / 63; Pulse 67 MON; Resp 16; Pulse Ox 100% on ETT vent; sg 17:37 BP 126 / 69; Pulse 68; Resp 17; Pulse Ox 100% on 40% FiO2 ETT vent; sg 18:04 BP 120 / 64; Pulse 66; Resp 17; Pulse Ox 100% on 40% FiO2 ETT vent; sg 18:30 BP 149 / 82; Pulse 66 MON; Resp 16; Pulse Ox 100% on 40% FiO2 ETT vent; sg 19:27 BP 138 / 82; Pulse 66; Resp 16 A; Pulse Ox 99% on 40% FiO2 ETT vent; tl2 20:21 BP 137 / 73; Pulse 68; Resp 16 A; Pulse Ox 99% on 40% FiO2 ETT vent; tl2 14:36 assist control 20, 500, 40%, peep 5 tw2 Lincoln Coma Score: 15:31 Eye Response: none(1). Verbal Response: none(1). Motor Response: none(1). Modifying jr8 Factors: Intubated. Total: 3. ED Course: 14:12 Patient arrived in ED. tw2 14:15 Arm band placed on. tw2 14:16 Triage completed. tw2 14:18 Eunice Styles, RN is Primary Nurse. iw 14:18 Eren Ruelas PA is PHCP. jr8 14:18 Gonzalo Ritter MD is Attending Physician. jr8 14:20 Initial lab(s) drawn, by me, sent to lab. jb1 14:27 Slade Saldana MD is Private Physician. bd 14:32 EKG done, by auto technician mechanic. reviewed by Eren PIZARRO. sm3 14:50 CT completed. Patient tolerated procedure well. Patient moved to CT via stretcher. Patient moved back from CT. 14:52 CT Head Brain wo Cont In Process Unspecified. EDMS 14:57 CT Chest For PE Angio In Process Unspecified. EDMS 15:15 NGT: inserted 14 Fr. other OG route verified placement of air over stomach, verified sg return of gastric contents, Placement verified by X-ray, to intermittent suction. Returned gastric contents. Amount of gastric contents removed by suction 100ml. Patient tolerated pt is intubated at this time. 15:18 XRAY Chest (1 view) In Process Unspecified. EDMS 15:20 Inserted saline lock: 20 gauge in right antecubital area, using aseptic technique. jb1 Blood collected. 15:45 Francisco cath inserted, using sterile technique, 16 Fr., by ks, balloon inflated, urine sg specimen collected. returned clear yellow urine. Patient tolerated well. 15:56 Primary Nurse role handed off by Eunice Styles, RN sg 15:56 Margarito Valdes, RN is Primary Nurse. sg 16:05 attempted transfer to [facility], pt declined due to no capacity, per maksim. bd 16:34 attempted transfer to [facility], pt denied due to no beds. per shabbir. bd 16:48 attempted transfer to [facility], pt denied due to no beds, per socorro. bd 16:51 Slade Saldana MD is Hospitalizing Provider. jr8 19:33 Patient has correct armband on for positive identification. Placed in gown. Bed in low tl2 position. Call light in reach. Side rails up X2. electrocardiographic technician on. Pulse ox on. NIBP on. 21:51 No provider procedures requiring assistance completed. Patient admitted, IV remains in tl2 place. Administered Medications: 14:48 Drug: SOLU-Medrol 125 mg Route: IVP; Site: right antecubital; sg 15:30 Follow up: Response: No adverse reaction sg 14:49 Drug: Versed 3 mg Route: IVP; Site: right antecubital; sg 15:15 Follow up: Response: No adverse reaction; Marked relief of symptoms sg 14:49 Drug: fentaNYL (PF) 50 mcg Route: IVP; Site: right antecubital; sg 15:45 Follow up: Response: No adverse reaction sg 15:20 Drug: Albuterol 2.5 mg Route: Inhalation; sg 15:25 Drug: Albuterol 2.5 mg Route: Inhalation; sg 15:25 Drug: Albuterol 2.5 mg Route: Inhalation; sg 15:45 Drug: NS 0.9% 1000 ml Route: IV; Rate: 1000 ml; Site: right antecubital; sg 17:00 Follow up: Response: No adverse reaction; IV Status: Completed infusion; IV Intake: sg 1000ml 16:00 Drug: Rocephin 1 grams Route: IV; Rate: calculated rate; Site: right antecubital; sg 16:30 Follow up: Response: No adverse reaction; IV Status: Completed infusion sg 16:10 Drug: Propofol 5 mcg/kg/min Route: IV; Rate: calculated rate; Site: right antecubital; sg 16:45 Follow up: Rate change 25 mcg/min sg 20:06 Follow up: Rate change 40 mcg/kg/min tl2 21:51 Follow up: IV Status: Infusion continued upon admission tl2 16:30 Drug: Lovenox 1 mg/kg Route: Sub-Q; Site: right lower abdomen; sg 16:40 Drug: Aspirin Chewable Tablet 324 mg Route: PO; sg 17:12 Not Given (Physician Discretion): Aspirin Suppository 300 mg MD once sg 17:14 Drug: Zithromax 500 mg Route: IVPB; Infused Over: 1 hrs; Site: right antecubital; sg Point of Care Testing: Blood Glucose: 14:11 Blood Glucose: 209 mg/dL; tw2 Ranges: Intake: 17:00 IV: 1000ml; Total: 1000ml. sg Output: 18:54 Urine: 200ml (Francisco); Total: 200ml. jb1 Outcome: 16:52 Decision to Hospitalize by Provider. jr8 21:51 Admitted to ICU accompanied by nurse, accompanied by tech, family with patient, via tl2 stretcher, room 2, with oxygen, on monitor, with chart, Report called to HARSHAL Olmos 21:51 critical 21:51 Discharge instructions given to family, Instructed on the need for admit. 21:52 Patient left the ED. tl2 Signatures: Dispatcher [employer] EDMS Rich Kirk jbSwati Peter Steven RN HARSHAL sg Ambreen Hdz Irene RN HARSHAL Eren Ruelas PA PA jr8 Lili Mederos RN RN tw2 Natalia Cadena RN RN tl2 Edie Krueger 3 Corrections: (The following items were deleted from the chart) 16:35 14:45 Reassessment: NG tube that was inserted by EMS noted to be coiled up in pt mouth, sg NG tube dc'd from R Nare sg 17:58 16:15 BP 142 / 69; Pulse 65bpm; MonitorResp 18bpm; Pulse Ox 99% FiO2 75% vent; sg sg 17:58 16:00 BP 131 / 71; Pulse 69bpm; MonitorResp 18bpm; Pulse Ox 99% FiO2 75% vent; sg sg 19:31 19:27 Respiratory: Airway is patent via oral intubation Trachea midline Respiratory tl2 effort is relaxed, assisted with mechanical ventilation tl2
[2018-06-22] MEDS ORDERED: ASPIRIN 81 MG CHEWABLE TABLET ONE (16:53)
--- NOTE | 2018-06-22 16:53 | EDPHYS ---
Physician Documentation [facility] Name: Elida Pradhan Age: 82 yrs Sex: Female : 1935 Arrival Date: 06/22/2018 Time: 14:12 Bed 3 Private MD: Slade Saldana V ED Physician Gonzalo Ritter HPI: 06/22 15:23 This 82 yrs old Female presents to ER via EMS with complaints of Unresponsive.jr8 15:23 Onset: The symptoms/episode began/occurred acutely, today. Duration: The symptoms are jr8 continuous. The patient's shortness of breath has no apparent modifying factors. Severity of symptoms: At their worst the symptoms were severe. It is unknown whether or not the patient has had similar symptoms in the past. It is unknown whether or not the patient has recently seen a physician. EMS called out for acute respiratory failure. Family found her not breathing well. Stated an hour before hand had been ok. EMS stated snoring inadequate respirations on scene. Intubated on scene with IO in place . Historical: - Allergies: 15:50 Cipro; tw2 15:50 Levaquin; tw2 - PMHx: 15:50 CHF; COPD; DYSPHAGIA; Hypertension; Myocardial infarction; tw2 - PSHx: 15:50 None; tw2 - Immunization history:: Adult Immunizations. - Social history:: Smoking status: . - Ebola Screening: : Patient denies travel to an Ebola-affected area in the 21 days before illness onset. ROS: 15:23 Unable to obtain ROS due to patient is on ventilator. jr8 Exam: 15:31 Eyes: Pupils equal round and sluggish to respond. Lids and lashes normal. jr8 Conjunctiva and sclera are non-icteric and not injected. Cornea within normal limits. Periorbital areas with no swelling, redness, or edema. ENT: Nares patent. No nasal discharge, no septal abnormalities noted. Oropharynx with no redness, swelling, or masses, exudates. Patient with vomitus in mouth and intubated Neck: Trachea midline, no thyromegaly or masses palpated, and no cervical lymphadenopathy. Supple, full range of motion Cardiovascular: Regular rate and rhythm with a normal S1 and S2. No gallops, murmurs, or rubs. Normal PMI, no JVD. No pulse deficits. Abdomen/GI: Soft, with normal bowel sounds. No distension or tympany. Skin: Warm, dry with normal turgor. Normal color with no rashes, no lesions, and no evidence of cellulitis. MS/ Extremity: Pulses equal, no cyanosis. Neurovascular intact. Full, normal range of motion. 15:31 Respiratory: Respiratory rate: Mechanically ventilated at rate of 16. Wheezing bilaterally present 15:47 Neuro: Orientation: unable to test, the patient is intubated, Mentation: unable to jr8 test, the patient is intubated, Motor: moves all fours, seizure activity, is not displayed by the patient, Abnormal movements: there are no abnormal movements. 15:48 ECG was reviewed by the Attending Physician. jr8 Vital Signs: 14:10 BP 144 / 100; Pulse 165; Resp 16 A; Pulse Ox 97% on ETT ambu; tw2 14:25 Temp 97.7; tw2 14:36 BP 158 / 131; Pulse 85; Resp 16; Pulse Ox 99% on 40% FiO2 ETT vent; tw2 14:50 Weight 111.13 kg; sg 15:25 BP 130 / 79; Pulse 63; Resp 16; Pulse Ox 100% on ETT vent; tw2 16:00 BP 131 / 71; Pulse 69 MON; Resp 18; Pulse Ox 99% on 40% FiO2 ETT vent; sg 16:15 BP 142 / 69; Pulse 65 MON; Resp 18; Pulse Ox 99% on 40% FiO2 ETT vent; sg 16:40 BP 147 / 72; Pulse 66; Resp 17; Pulse Ox 100% on ETT vent; sg 17:21 BP 129 / 63; Pulse 67 MON; Resp 16; Pulse Ox 100% on ETT vent; sg 17:37 BP 126 / 69; Pulse 68; Resp 17; Pulse Ox 100% on 40% FiO2 ETT vent; sg 18:04 BP 120 / 64; Pulse 66; Resp 17; Pulse Ox 100% on 40% FiO2 ETT vent; sg 18:30 BP 149 / 82; Pulse 66 MON; Resp 16; Pulse Ox 100% on 40% FiO2 ETT vent; sg 19:27 BP 138 / 82; Pulse 66; Resp 16 A; Pulse Ox 99% on 40% FiO2 ETT vent; tl2 20:21 BP 137 / 73; Pulse 68; Resp 16 A; Pulse Ox 99% on 40% FiO2 ETT vent; tl2 14:36 assist control 20, 500, 40%, peep 5 tw2 [place]ul[place] Coma Score: 15:31 Eye Response: none(1). Verbal Response: none(1). Motor Response: none(1). Modifying jr8 Factors: Intubated. Total: 3. MDM: 14:18 Patient medically screened. jr8 15:47 Data reviewed: vital signs, nurses notes, lab test result(s), EKG, radiologic studies, jr8 CT scan, plain films. Data interpreted: Pulse oximetry: on ventilator is 100 %. Interpretation: normal. Counseling: I had a detailed discussion with the patient and/or guardian regarding: the historical points, exam findings, and any diagnostic results supporting the discharge/admit diagnosis, lab results, radiology results, the need for further work-up and treatment in the hospital. 16:06 ED course: No ICU available. Needing to transfer at this time. [facility] at ICU jr8 saturation. Will attempt another facility in the medical center . 16:38 ED course: [facility] declined transfer due to saturation . jr8 16:50 ED course: [facility] Declined due to capacity. Will admit here to ICU to Dr. Saldana . 06/22 14:19 Order name: Basic Metabolic Panel; Complete Time: 15:31 06/22 14:19 Order name: CBC with Diff 06/22 14:19 Order name: LFT's; Complete Time: 15:31 06/22 14:19 Order name: Magnesium; Complete Time: 15:31 06/22 14:19 Order name: NT PRO-BNP; Complete Time: 15:31 06/22 14:19 Order name: PT-INR; Complete Time: 16:02 06/22 14:19 Order name: Troponin (emerg Dept Use Only); Complete Time: 15:31 06/22 14:19 Order name: ABG; Complete Time: 15:21 06/22 14:19 Order name: Blood Culture Adult (2) 06/22 14:19 Order name: Lactate; Complete Time: 15:21 06/22 15:21 Order name: Urine Microscopic Only; Complete Time: 17:23 06/22 15:21 Order name: Urine Culture /03 15:32 Order name: Urine Dipstick--Ancillary (enter results); Complete Time: 16:02 bd 06/22 16:28 Order name: glucometer results - FOR PT WITH NO ID; Complete Time: 17:03 sg 06/22 14:19 Order name: XRAY Chest (1 view); Complete Time: 15:31 8 06/22 14:19 Order name: CT Head Brain wo Cont; Complete Time: 15:21 [facility] 06/22 14:54 Order name: CT Chest For PE Angio; Complete Time: 15:21 [facility] 06/22 18:49 Order name: Lactate Sepsis 2 HR Follow-up EDAR 06/22 20:30 Order name: CBC Smear Scan [facility] 06/22 14:19 Order name: EKG; Complete Time: 14:20 [facility] 06/22 14:19 Order name: Cardiac monitoring; Complete Time: 17:31 [facility] 06/22 14:19 Order name: EKG - Nurse/Tech; Complete Time: 17: [facility] 06/22 14:19 Order name: IV Saline Lock; Complete Time: 17: [facility] 06/22 14:19 Order name: Labs collected and sent; Complete Time: 17: [facility] 06/22 14:19 Order name: O2 Per Protocol; Complete Time: 17: [facility] 06/22 14:19 Order name: O2 Sat Monitoring; Complete Time: 17: [facility] 06/22 15:22 Order name: Francisco; Complete Time: 15:23 jr8 EC:48 Rate is 74 beats/min. Rhythm is regular, Sinus Rhythm. QRS [place] is Normal. LA interval jr8 is normal at 128 msec. QRS interval is normal at 68 msec. QT interval is prolonged at 512 msec. No Q waves. T waves are Normal. No ST changes noted. Clinical impression: No evidence of ischemia. Interpreted by me. Reviewed by me. Administered Medications: 14:48 Drug: SOLU-Medrol 125 mg Route: IVP; Site: right antecubital; sg 15:30 Follow up: Response: No adverse reaction sg 14:49 Drug: Versed 3 mg Route: IVP; Site: right antecubital; sg 15:15 Follow up: Response: No adverse reaction; Marked relief of symptoms sg 14:49 Drug: fentaNYL (PF) 50 mcg Route: IVP; Site: right antecubital; sg 15:45 Follow up: Response: No adverse reaction sg 15:20 Drug: Albuterol 2.5 mg Route: Inhalation; sg 15:25 Drug: Albuterol 2.5 mg Route: Inhalation; sg 15:25 Drug: Albuterol 2.5 mg Route: Inhalation; sg 15:45 Drug: NS 0.9% 1000 ml Route: IV; Rate: 1000 ml; Site: right antecubital; sg 17:00 Follow up: Response: No adverse reaction; IV Status: Completed infusion; IV Intake: sg 1000ml 16:00 Drug: Rocephin 1 grams Route: IV; Rate: calculated rate; Site: right antecubital; sg 16:30 Follow up: Response: No adverse reaction; IV Status: Completed infusion sg 16:10 Drug: Propofol 5 mcg/kg/min Route: IV; Rate: calculated rate; Site: right antecubital; sg 16:45 Follow up: Rate change 25 mcg/min sg 20:06 Follow up: Rate change 40 mcg/kg/min tl2 21:51 Follow up: IV Status: Infusion continued upon admission tl2 16:30 Drug: Lovenox 1 mg/kg Route: Sub-Q; Site: right lower abdomen; sg 16:40 Drug: Aspirin Chewable Tablet 324 mg Route: PO; sg 17:12 Not Given (Physician Discretion): Aspirin Suppository 300 mg LA once sg 17:14 Drug: Zithromax 500 mg Route: IVPB; Infused Over: 1 hrs; Site: right antecubital; sg Point of Care Testing: Blood Glucose: 14:11 Blood Glucose: 209 mg/dL; tw2 Ranges: Critical Glucose Levels:Adult <50 mg/dl or >400 mg/dl <40 mg/dl or >180 mg/dl Disposition: 16:07 Critical Care:. jr8 06/23 07:04 Co-signature as Attending Physician, Gonzalo Ritter MD. rn Disposition: 06/22/18 16:52 Hospitalization ordered by Slade Saldana for Inpatient Admission. Preliminary diagnosis are Non-ST elevation (NSTEMI) myocardial infarction, Acute respiratory failure, Acidosis. - Bed requested for Intensive Care Unit. - Status is Inpatient Admission. tl2 - Condition is Stable. - Problem is new. - Symptoms are unchanged. UTI on Admission? No Critical care time excluding procedures: 06/22 16:07 Critical care time: Bedside Care: 20 minutes, Consultation: 15 minutes. Total time: 35 jr8 minutes Signatures: Dispatcher [employer] EDMS Margarito Valdes RN RN sg Nieto, Roman, MD MD rn Roszak, Josh, PA PA jr8 Janet Maya RN RN Lili Mederos RN RN tw2 Natalia Cadena RN RN tl2 Corrections: (The following items were deleted from the chart) 15:47 15:31 Eyes: Pupils equal round and sluggish to respond. Lids and lashes normal. jr8 Conjunctiva and sclera are non-icteric and not injected. Cornea within normal limits. Periorbital areas with no swelling, redness, or edema. ENT: Nares patent. No nasal discharge, no septal abnormalities noted. Oropharynx with no redness, swelling, or masses, exudates. Patient with vomitus in mouth and intubated Neck: Trachea midline, no thyromegaly or masses palpated, and no cervical lymphadenopathy. Supple, full range of motion Cardiovascular: Regular rate and rhythm with a normal S1 and S2. No gallops, murmurs, or rubs. Normal PMI, no JVD. No pulse deficits. Abdomen/GI: Soft, with normal bowel sounds. No distension or tympany. Skin: Warm, dry with normal turgor. Normal color with no rashes, no lesions, and no evidence of cellulitis. MS/ Extremity: Pulses equal, no cyanosis. Neurovascular intact. Full, normal range of motion. jr8 19:08 16:52 Hospitalization Ordered by Slade Saldana MD for Inpatient Admission. Preliminary cg diagnosis is Non-ST elevation (NSTEMI) myocardial infarction; Acute respiratory failure; Acidosis. Bed requested for Intensive Care Unit. Status is Inpatient Admission. Condition is Stable. Problem is new. Symptoms are unchanged. UTI on Admission? No. jr8 21:52 19:08 06/22/2018 16:52 Hospitalization Ordered by Slade Saldana MD for Inpatient tl2 Admission. Preliminary diagnosis is Non-ST elevation (NSTEMI) myocardial infarction; Acute respiratory failure; Acidosis. Bed requested for Intensive Care Unit. Status is Inpatient Admission. Condition is Stable. Problem is new. Symptoms are unchanged. UTI on Admission? No. cg
[2018-06-22] MEDS ORDERED: ENOXAPARIN 100 MG/ML SYR SQ ONE (16:54)
[2018-06-22 17:17] LABS: Urine Bacteria 20-50 /HPF (<20); Urine RBC <5 /HPF (NONE SEEN)
[2018-06-22 17:18] LABS: Urine Culture Reflex Order NOT NEEDED
[2018-06-22] MEDS ORDERED: AZITHROMYCIN IV 500 MG in NA CHLORIDE 0.9% 250 ML IVPB ONE (18:00)
[2018-06-22 20:29] LABS: Blood Morphology Comment NOT SEEN (NOT SEEN); Platelet Estimate ADEQ; Urine White Blood Cell Casts OK
--- NOTE | 2018-06-22 20:39 | P.HP ---
Certification for Inpatient Patient admitted to: Inpatient With expected LOS: >2 Midnights Practitioner: I am a practitioner with admitting privileges, knowledge of patient current condition, hospital course, and medical plan of care. Services: Services provided to patient in accordance with Admission requirements found in Title 42 Section 412.3 of the Code of Federal Regulations Patient History Date of Service: 06/22/18 Reason for admission: SHORT OF BREATH, OBTUNDED History of Present Illness: MR. FOWLER IS 82 YEARS OLD LADY WITH SEVERE COPD, AND RECENT ADMISSION FOR A.FIB. WAS SENT HOME IN STABLE CONDITION BUT WITH GUARDED PROGNOSIS, COMES BACK WITH DYSPNEA, OBTUNDATION, INTUBATED AT RETIREMENT AND BROUGHT TO ER. SHE IS SEDATED FOR NOW. I TALKED TO SON. Allergies ciprofloxacin Adverse Reaction (Verified 01/21/18 18:54) Nausea/Vomiting levofloxacin [From Levaquin] Adverse Reaction (Verified 01/21/18 18:54) Nausea/Vomiting Home Medications: ARIPiprazole [Abilify*] 5 mg PO DAILY 03/17/18 Albuterol Sulfate [Proair Hfa] 2 puff IH QID 03/17/18 Amlodipine [Norvasc*] 5 mg PO DAILY 03/17/18 Codeine/APAP [Tylenol #3*] 1 tab PO Q4HP PRN 03/17/18 Losartan Potassium [Cozaar*] 50 mg PO DAILY 03/17/18 Mirtazapine [Remeron*] 50 mg PO BEDTIME 03/17/18 Umeclidinium Brm/Vilanterol Tr [Anoro Ellipta 62.5-25 Mcg INH] 1 puff IH DAILY 03/17/18 Ursodiol 300 mg PO BID 03/17/18 Venlafaxine HCl [Venlafaxine HCl ER] 150 mg PO DAILY WITH BREAKFAST 03/17/18 diazePAM [Diazepam] 5 mg PO BEDTIME 03/17/18 Apixaban [Eliquis] 5 mg PO BID tablet 06/20/18 Arformoterol Tartrate [Brovana] 15 mcg NEB BIDRESP vial.neb 06/20/18 Sotalol HCl [Betapace*] 80 mg PO BID 6AM 6PM tab 06/20/18 cloNIDine HCl [Catapres*] 0.1 mg PO Q2HP PRN tab 04/01/19 - Past Medical/Surgical History Diabetic: No -: HTN -: [place] -: COPD -: childhood asthma -: dysphagia -: Gall bladder stones -: tonsilectomy @ 8 yrs old -: Cataract surgery - Family History Father -: Kidney disease Notes: Bryte's disease Mother -: Stroke Sister -: Hypertension, Kidney disease Brother -: Cancer Notes: cancer of esophagus and colon cancer - Social History Alcohol use: No CD- Drugs: No Caffeine use: Yes Review of Systems is unable to be obtained General: Weakness, Malaise Respiratory: SOB with Excertion Physical Examination - Physical Exam General: Moderate distress, Obese HEENT: Atraumatic, PERRLA, Mucous membr. moist/pink, EOMI, Sclerae nonicteric Neck: Supple, 2+ carotid pulse no bruit, No LAD, Without JVD or thyroid abnormality Respiratory: Diminished Cardiovascular: Irregular heart rate/rhythm Gastrointestinal: Normal bowel sounds, No tenderness Musculoskeletal: No tenderness Integumentary: No rashes Neurological: Normal gait, Normal speech, Normal strength at 5/5 x4 extr, Normal tone, Normal affect Lymphatics: No axilla or inguinal lymphadenopathy - Studies Laboratory Data (last 24 hrs) 06/22/18 14:20: PT 22.6 H, INR 1.97 06/22/18 14:20: WBC 15.1 H D, Hgb 11.4 L, Hct 36.4, Plt Count 381 D 06/22/18 14:20: Sodium 141, Potassium 4.9, BUN 27 H, Creatinine 1.11, Glucose 195 H, Magnesium 2.2, Total Bilirubin 0.4, AST 21, ALT 19, Alkaline Phosphatase 67 Assessment and Plan - Problems (Diagnosis) (1) Respiratory failure Current Visit: Yes Status: Chronic Plan: SHE HAS SEVERE COPD. COMES BACK WITH HYPERCAPNEA AND INTUBATED STATUS DESPITE TREATMENT. FAMILY IS AWARE AND NOT WILLING TO LET HER SUFFER IN SUCH CONDITION FOR LONG. SON IS WORRIED ABOUT HER POOR QUALITY OF LIFE. I AGREE. RESUME SOLUMEDROL. NEBS EXTUBATION IN AM IF SHE IS AWAKE ENOUGH. (2) Subendocardial [place] first episode care Current Visit: Yes Status: Acute Plan: THIS MAY BE FROM ACUTE STRAIN. MEDICAL MANAGEMENT. SHE IS NOT A CANDIDATE FOR ANY INVASIVE EVALUATION. (3) Atrial fibrillation, new onset Current Visit: No Status: Acute Plan: DIAGNOSED FIRST TIME LAST VISIT. RESUME BETAPACE AND ELIQUIS. - Advance Directives Does patient have a Living Will: Yes Does patient have a Durable POA for Healthcare: Yes
[2018-06-22] MEDS ORDERED: FAMOTIDINE 20 MG/2 ML VIAL IV SCH (21:00)
[2018-06-22] MEDS ORDERED: INSULIN -REGULAR HUMAN 50 UNIT/0.5 ML ML SQ SCH (21:02)
[2018-06-22] MEDS: APIXABAN 5 MG TABLET PO SCH (21:02)
[2018-06-22] MEDS ORDERED: GLUCAGON 1 MG/VIAL IM PRN (21:02)
[2018-06-22] MEDS ORDERED: IPRATROPIUM BROM 0.5MG/2.5ML NEB PRN (21:02)
[2018-06-22] MEDS ORDERED: D50W 25 GM/50 ML SYRINGE IV PRN (21:02)
[2018-06-22] MEDS ORDERED: MIDAZOLAM HCL 2 MG/2 ML INJ IV PRN (21:02)
[2018-06-22] MEDS ORDERED: ALBUTEROL INHALER 60 PUFF/8 GM IH SCH (21:02)
[2018-06-22] MEDS: FAMOTIDINE 20 MG/2 ML VIAL IV SCH (23:45)
[2018-06-22] MEDS: INSULIN -REGULAR HUMAN 50 UNIT/0.5 ML ML SQ SCH (23:47)
[2018-06-23] MEDS ORDERED: METHYLPREDNISOLONE 40 MG INJ IV SCH
[2018-06-23] MEDS: PROPOFOL 1,000 MG/100 ML VIAL IV PRN ×2 (02:14→06:30)
[2018-06-23 05:50] LABS: Absolute Lymphocytes (CBC) 1.6 K/uL (0.7-4.9); Absolute Monocytes 0.8 K/uL (0.1-1.3); Absolute Neutrophil 12.3 K/uL (1.8-8.0); Basophils % 0.6 % (0-1.3); Hematocrit 35.9 % (36.0-45.0); Lymphocytes % 10.8 % (15.3-44.8); MPV 10.2 fL (7.6-11.3); Monocytes % 5.7 % (3.3-12.3); RBC Red Blood Cell Count 4.16 M/uL (3.86-4.86)
[2018-06-23] MEDS ORDERED: SOTALOL HCL 80 MG TAB PO SCH (06:00)
[2018-06-23] MEDS: INSULIN -REGULAR HUMAN 50 UNIT/0.5 ML ML SQ SCH ×3 (06:00→17:58)
[2018-06-23] MEDS: ARFORMOTEROL TARTRATE 15 MCG/2 ML VIAL.NEB NEB SCH ×2 (07:43→20:02)
--- NOTE | 2018-06-23 08:04 | RAD REPORT ---
EXAM DESCRIPTION: RAD - Chest Single View - 06/23/2018 7:54 am CLINICAL HISTORY: Intubation, respiratory failure COMPARISON: June 22 TECHNIQUE: AP portable chest image was obtained 0749 hours . FINDINGS: ET tube remains in place well positioned mid aortic arch. NG tube extends below the diaphr agm, off the field of view. No new tube or line. Resuscitation paddles have been removed. Interstitial and alveolar opacities in the lung mejía have improved but not fully resolved. There re rg interstitial edema or infiltrate. Heart size is upper normal and stable. Vasculature has dimini shed in prominence. No pneumothorax or enlarging pleural effusion. No acute aortic findings suspected . IMPRESSION: Partial clearing of the interstitial and alveolar opacity seen on the prior day study.
--- NOTE | 2018-06-23 08:20 | P.CNS ---
Date of Consult: 06/23/18 Chief Complaint: Respiratory failure History of Present Illness: Patient is 82 years of age history of COPD [facility] resident admitted with respiratory distress is currently intubated on propofol drip unresponsive hemodynamically stable oxygenation satisfactory according to the nurses apparently she had aspirated that suction some for particles out through a trachea Allergies ciprofloxacin Adverse Reaction (Verified 01/21/18 18:54) Nausea/Vomiting levofloxacin [From Levaquin] Adverse Reaction (Verified 01/21/18 18:54) Nausea/Vomiting Home Medications: ARIPiprazole [Abilify*] 5 mg PO DAILY 03/17/18 Albuterol Sulfate [Proair Hfa] 2 puff IH QID 03/17/18 Amlodipine [Norvasc*] 5 mg PO DAILY 03/17/18 Codeine/APAP [Tylenol #3*] 1 tab PO Q4HP PRN 03/17/18 Losartan Potassium [Cozaar*] 50 mg PO DAILY 03/17/18 Mirtazapine [Remeron*] 50 mg PO BEDTIME 03/17/18 Umeclidinium Brm/Vilanterol Tr [Anoro Ellipta 62.5-25 Mcg INH] 1 puff IH DAILY 03/17/18 Ursodiol 300 mg PO BID 03/17/18 Venlafaxine HCl [Venlafaxine HCl ER] 150 mg PO DAILY WITH BREAKFAST 03/17/18 diazePAM [Diazepam] 5 mg PO BEDTIME 03/17/18 Apixaban [Eliquis] 5 mg PO BID tablet 06/20/18 Arformoterol Tartrate [Brovana] 15 mcg NEB BIDRESP vial.neb 06/20/18 Sotalol HCl [Betapace*] 80 mg PO BID 6AM 6PM tab 06/20/18 cloNIDine HCl [Catapres*] 0.1 mg PO Q2HP PRN tab 06/20/18 - Past Medical/Surgical History Diabetic: No -: HTN -: [place] -: COPD -: childhood asthma -: dysphagia -: Gall bladder stones -: tonsilectomy @ 8 yrs old -: Cataract surgery - Family History Father Medical History: Kidney disease Notes: Bryte's disease Mother History Unknown: Yes Medical History: Stroke Sister History Unknown: Yes Medical History: Hypertension, Kidney disease Brother History Unknown: Yes Medical History: Cancer Notes: cancer of esophagus and colon cancer - Social History Smoking Status: Current every day smoker Alcohol use: No CD- Drugs: No Caffeine use: Yes Review of Systems is unable to be obtained Physical Examination Temp Pulse Resp BP Pulse Ox 97.2 F 71 18 169/85 H 100 06/23/18 04:00 06/23/18 06:00 06/23/18 06:00 06/23/18 06:00 06/23/18 06:00 General: Unresponsive Respiratory: Clear to auscultation bilaterally Cardiovascular: No edema, Normal S1 S2 Gastrointestinal: Normal bowel sounds, Soft and benign Laboratory Data (last 24 hrs) 06/22/18 14:20: PT 22.6 H, INR 1.97 06/22/18 14:20: WBC 15.1 H D, Hgb 11.4 L, Hct 36.4, Plt Count 381 D 06/22/18 14:20: Sodium 141, Potassium 4.9, BUN 27 H, Creatinine 1.11, Glucose 195 H, Magnesium 2.2, Total Bilirubin 0.4, AST 21, ALT 19, Alkaline Phosphatase 67 - Problems (1) Respiratory failure Current Visit: Yes Status: Acute Plan: Patient is 82 years of age admitted with respiratory failure is currently on a ventilator she may have aspirated chest CT scan shows possible aspiration pneumonia patient is anti coagulated no evidence of pulmonary embolism is hypoxic hypercapnic wean off propofol change ventilator to SIMV had the Matt possibility of aspiration pneumonia white count is elevated patient is only on 30% oxygen titrate sat to 90% do ABGs trial of weaning Qualifiers: Chronicity: acute on chronic
[2018-06-23] MEDS: FAMOTIDINE 20 MG/2 ML VIAL IV SCH (08:31)
[2018-06-23] MEDS ORDERED: LOSARTAN POTASSIUM 50 MG TABLET PO SCH (09:00)
[2018-06-23] MEDS: FUROSEMIDE 20 MG/ 2ML VIAL IV SCH ×2 (09:00→17:12)
[2018-06-23] MEDS: APIXABAN 5 MG TABLET PO SCH (09:00)
[2018-06-23] MEDS ORDERED: FUROSEMIDE 20 MG/ 2ML VIAL IV SCH ×2 (09:00)
[2018-06-23] MEDS: PIPER/TAZO/NS 3.375gm 3.375 GM/100 ML BAG IVPB SCH ×2 (09:01→17:11)
[2018-06-23] MEDS: LORazepam 2 MG/ML VIAL IV PRN ×2 (09:09→11:06)
[2018-06-23] MEDS ORDERED: METOPROLOL TARTRATE 5 MG/5 ML INJ IV PRN (09:38)
[2018-06-23] MEDS: FENTANYL CITR 100 MCG/2 ML IV PRN ×3 (09:48→18:45)
[2018-06-23 09:55] LABS: Arterial Blood Carboxyhemoglob 1.3 % (0-1.5); Blood O2 Saturation 89.7 % (92-98.5)
[2018-06-23] MEDS: METOPROLOL TARTRATE 5 MG/5 ML INJ IV SCH ×3 (11:09→22:00)
--- NOTE | 2018-06-23 11:34 | ECHO ---
HEIGHT: 5 ft 6 in WEIGHT: 188 lb 8 oz DATE OF STUDY: 06/23/[address]: Slade Saldana MD 2-DIMENSIONAL: YES M.MODE: YES DOPPLER: YES COLOR FLOW: YES TDS: YES PORTABLE: NO DEFINITY: NO BUBBLE STUDY: NO DIAGNOSIS: EDEMA, DYSPNEA CARDIAC HISTORY: CATHERIZATION: SURGERY: PROSTHETIC VALVE: PACEMAKER: MEASUREMENTS (cm) DIASTOLIC (NORMALS) SYSTOLIC (NORMALS) IVSd 1.0 (0.6-1.2) LA Diam (1.9-4.0) LVEF 59% LVIDd 4.5 (3.5-5.7) LVIDs 3.1 (2.0-3.5) %FS 31% LVPWd 1.0 (0.6-1.2) Ao Diam 3.0 (2.0-3.7) 2 DIMENSIONAL ASSESSMENT: RIGHT ATRIUM: NORMAL LEFT ATRIUM: DILATED RIGHT VENTRICLE: NORMAL LEFT VENTRICLE: NORMAL TRICUSPID VALVE: NORMAL MITRAL VALVE: NORMAL PULMONIC VALVE: NORMAL AORTIC VALVE: MILD LEAFLET THICKENING, TRI-LEAFLET PERICARDIAL EFFUSION: NONE AORTIC ROOT: NORMAL LEFT VENTRICULAR WALL MOTION: NORMAL DOPPLER/COLOR FLOW: MILD AORTIC REGURGITATION. NO AORTIC STENOSIS. IMPAIRED LEFT VENTRICULAR RELAXATION. COMMENTS: NORMAL LEFT VENTRICULAR EJECTION FRACTION. DILATED LEFT ATRIUM. AORTIC SCLEROSIS WITH MILD AORTIC REGURGITATION, NO AORTIC STENOSIS. IMPAIRED LEFT VENTRICULAR RELAXATION. TECHNOLOGIST: Jeremias SANCHEZ
--- NOTE | 2018-06-23 12:43 | CON ---
Chief Complaint: Respiratory arrest. History Of Present Illness: Ms. Pradhan was in our hospital recently with atrial fibrillation. S he went home in sinus rhythm, taking Betapace and apixaban, was doing well. She called EMS for short ness of breath. When they arrive, she was unresponsive. She had to be intubated in the field. She has been found to have profound hypercapnia, at no point was there cardiac arrest. No CPR was given. No shocks. She has been intubated, still is intubated and since being here her EKGs have been fine . Troponins are elevated but certainly can be explained by what she has gone through with her severe hypercapnia, hypoxemia, respiratory acidosis. I do not think this is an acute coronary syndrome. Physical Examination: General: She is obtunded. She is on propofol, intubated. She seems to be able to respond when prop ofol is turned off temporarily. Lungs: Reveal diffuse wheezes. Heart: Regular rate and rhythm. EKG unremarkable. I think we can say all of the findings are due to her respiratory problems, severe hypercapnia due to underlying lung disease. I would not make any changes in her cardiac therapy and I do not consider this an acute coronary syndrome. ROHITH/JEREMIAS Voice ID: [id number] Report ID: [id number]
--- NOTE | 2018-06-23 12:44 | P.PN ---
Subjective Date of Service: 06/23/18 Chief Complaint: Respiratory failure Subjective: No new changes, Improving NAUSEA, VOMITING, STILL INTUBATED, TO BE TAPERED OFF TO EXTUBATE. Review of Systems is unable to be obtained General: Weakness, Malaise Physical Examination - Vital Signs Temperature: 97.2 F Blood Pressure: 203/105 Pulse: 77 Respirations: 18 Pulse Ox (%): 100 - Physical Exam General: Moderate distress, Obese HEENT: Atraumatic, PERRLA, EOMI Neck: Supple, JVD not distended Respiratory: Clear to auscultation bilaterally, Normal air movement Cardiovascular: Regular rate/rhythm, Normal S1 S2 Gastrointestinal: Normal bowel sounds, No tenderness Musculoskeletal: No tenderness Integumentary: No rashes Neurological: Normal speech, Normal tone, Normal affect Lymphatics: No axilla or inguinal lymphadenopathy - Studies Laboratory Data (last 24 hrs) 06/22/18 14:20: PT 22.6 H, INR 1.97 06/22/18 14:20: WBC 15.1 H D, Hgb 11.4 L, Hct 36.4, Plt Count 381 D 06/22/18 14:20: Sodium 141, Potassium 4.9, BUN 27 H, Creatinine 1.11, Glucose 195 H, Magnesium 2.2, Total Bilirubin 0.4, AST 21, ALT 19, Alkaline Phosphatase 67 Microbiology Data (last 24 hrs): 06/22/18 14:20 Blood - Blood Anaerobic Blood Culture - Final Medications List Reviewed: Yes Assessment And Plan - Current Problems (Diagnosis) (1) Respiratory failure Current Visit: Yes Status: Chronic Plan: SHE HAS SEVERE COPD. COMES BACK WITH HYPERCAPNEA AND INTUBATED STATUS DESPITE TREATMENT. FAMILY IS AWARE AND NOT WILLING TO LET HER SUFFER IN SUCH CONDITION FOR LONG. SON IS WORRIED ABOUT HER POOR QUALITY OF LIFE. I AGREE. RESUME SOLUMEDROL. NEBS EXTUBATION IN AM IF SHE IS AWAKE ENOUGH. RESUME LASIX SOLUMEDROL IV. NEBS EXTUBATE IF SAFE TODAY. (2) Subendocardial [place] first episode care Current Visit: Yes Status: Acute Plan: THIS MAY BE FROM ACUTE STRAIN. MEDICAL MANAGEMENT. SHE IS NOT A CANDIDATE FOR ANY INVASIVE EVALUATION. (3) Atrial fibrillation, new onset Current Visit: No Status: Acute Plan: DIAGNOSED FIRST TIME LAST VISIT. RESUME BETAPACE AND ELIQUIS.
[2018-06-23] MEDS ORDERED: ACETAMINOPHEN 650MG/RECT SUPP PR PRN (12:45)
[2018-06-23] MEDS: IPRATROPIUM BROM 0.5MG/2.5ML NEB SCH ×2 (13:33→20:02)
[2018-06-23] MEDS: cloNIDine HCl 0.1 MG TAB PO PRN (20:04)
[2018-06-23] MEDS: ENOXAPARIN 100 MG/ML SYR SQ SCH (21:02)
[2018-06-24] MEDS: PIPER/TAZO/NS 3.375gm 3.375 GM/100 ML BAG IVPB SCH ×3 (00:23→16:24)
[2018-06-24] MEDS: IPRATROPIUM BROM 0.5MG/2.5ML NEB SCH ×4 (01:30→20:00)
[2018-06-24] MEDS: FENTANYL CITR 100 MCG/2 ML IV PRN ×2 (02:09→05:58)
[2018-06-24] MEDS: LORazepam 2 MG/ML VIAL IV PRN (02:51)
[2018-06-24] MEDS: METOPROLOL TARTRATE 5 MG/5 ML INJ IV SCH ×4 (04:07→21:55)
[2018-06-24 05:37] VITALS: BMI 29.7
[2018-06-24] MEDS: INSULIN -REGULAR HUMAN 50 UNIT/0.5 ML ML SQ SCH ×4 (06:00→17:54)
[2018-06-24] MEDS: cloNIDine HCl 0.1 MG TAB PO PRN (07:39)
[2018-06-24] MEDS: ARFORMOTEROL TARTRATE 15 MCG/2 ML VIAL.NEB NEB SCH ×2 (08:44→20:00)
[2018-06-24] MEDS: ENOXAPARIN 100 MG/ML SYR SQ SCH (08:44)
[2018-06-24] MEDS: FAMOTIDINE 20 MG/2 ML VIAL IV SCH (08:45)
[2018-06-24] MEDS: FUROSEMIDE 20 MG/ 2ML VIAL IV SCH ×2 (08:45→16:25)
--- NOTE | 2018-06-24 13:34 | P.PN ---
Subjective Date of Service: 06/24/18 Chief Complaint: Respiratory failure Subjective: Improving (Patient is doing well alert responsive cooperative passed a spontaneous breathing trial and was extubated this morning) Review of Systems is unable to be obtained Physical Examination - Vital Signs Temperature: 97.9 F Blood Pressure: 158/89 Pulse: 81 Respirations: 29 Pulse Ox (%): 97 - Physical Exam General: Alert, In no apparent distress, Cooperative Respiratory: Clear to auscultation bilaterally, Diminished Cardiovascular: No edema, Normal S1 S2 - Studies Microbiology Data (last 24 hrs): 06/22/18 15:20 Catheterized Urine [place] Count - Final >100,000 CFU/ML. 06/22/18 15:20 Catheterized Urine - Final Enterococcus Faecalis 06/22/18 14:20 Blood - Blood Anaerobic Blood Culture - Final Medications List Reviewed: Yes Assessment & Plan - Problems (Diagnosis) (1) Respiratory failure Current Visit: Yes Status: Acute Plan: Patient admitted with respiratory failure and possible aspiration pneumonia doing much better at patient was weaned successfully and extubated sputum Gram stains are pending urine has Enterococcus which is sensitive to amoxicillin patient's echocardiogram is normal sputum cultures are pending vital signs are stable modified a therapy according to sputum cultures Qualifiers: Chronicity: acute on chronic
[2018-06-24] MEDS: CODEINE 30MG/APAP 300MG TAB PO PRN (20:34)
[2018-06-24] MEDS: ENOXAPARIN 80 MG/0.8 ML SQ SCH (20:35)
--- NOTE | 2018-06-24 21:06 | P.PN ---
Subjective Date of Service: 06/24/18 Chief Complaint: Respiratory failure Subjective: Improving NAUSEA, VOMITING, STILL INTUBATED, TO BE TAPERED OFF TO EXTUBATE. REFUGIO IS ANXIOUS, INTUBATED IN AM BUT LATER WAS EXTUBATED BY DR. RESENDIZ. Review of Systems 10-point ROS is otherwise unremarkable General: Weakness, Malaise Respiratory: Cough, Shortness of Breath Physical Examination - Vital Signs Temperature: 98.5 F Blood Pressure: 168/76 Pulse: 73 Respirations: 24 Pulse Ox (%): 96 - Physical Exam General: Mild distress, Moderate distress HEENT: Atraumatic, PERRLA, EOMI Neck: Supple, JVD not distended Respiratory: Diminished Cardiovascular: Regular rate/rhythm, Normal S1 S2 Gastrointestinal: Normal bowel sounds, No tenderness Musculoskeletal: No tenderness Integumentary: No rashes Neurological: Normal speech, Normal tone, Normal affect Lymphatics: No axilla or inguinal lymphadenopathy - Studies Microbiology Data (last 24 hrs): 06/22/18 15:20 Catheterized Urine [place] Count - Final >100,000 CFU/ML. 06/22/18 15:20 Catheterized Urine - Final Enterococcus Faecalis Medications List Reviewed: Yes Assessment And Plan - Current Problems (Diagnosis) (1) Respiratory failure Current Visit: Yes Status: Chronic Plan: SHE HAS SEVERE COPD. COMES BACK WITH HYPERCAPNEA AND INTUBATED STATUS DESPITE TREATMENT. FAMILY IS AWARE AND NOT WILLING TO LET HER SUFFER IN SUCH CONDITION FOR LONG. SON IS WORRIED ABOUT HER POOR QUALITY OF LIFE. I AGREE. RESUME SOLUMEDROL. NEBS EXTUBATION IN AM IF SHE IS AWAKE ENOUGH. RESUME LASIX SOLUMEDROL IV. NEBS EXTUBATE IF SAFE TODAY. STABLE. EXTUBATED TODAY. PROGNOSIS OVERALL POOR. Qualifiers: Chronicity: acute on chronic Respiratory failure complication: hypercapnia Qualified Code(s): J96.22 - Acute and chronic respiratory failure with hypercapnia (2) Subendocardial [place] first episode care Current Visit: Yes Status: Acute Plan: THIS MAY BE FROM ACUTE STRAIN. MEDICAL MANAGEMENT. SHE IS NOT A CANDIDATE FOR ANY INVASIVE EVALUATION. (3) Atrial fibrillation, new onset Current Visit: No Status: Acute Plan: DIAGNOSED FIRST TIME LAST VISIT. RESUME BETAPACE AND ELIQUIS.
[2018-06-25] MEDS: PIPER/TAZO/NS 3.375gm 3.375 GM/100 ML BAG IVPB SCH ×3 (00:46→16:17)
[2018-06-25] MEDS: IPRATROPIUM BROM 0.5MG/2.5ML NEB SCH ×4 (02:00→20:05)
[2018-06-25] MEDS: ALBUTEROL 2.5 MG/3 ML NEB SOL NEB PRN (02:00)
[2018-06-25] MEDS: METOPROLOL TARTRATE 5 MG/5 ML INJ IV SCH ×2 (04:24→10:00)
[2018-06-25 06:06] LABS: Magnesium 2.2 mg/dL (1.8-2.4); Potassium 3.3 mmol/L (3.5-5.1)
[2018-06-25] MEDS ORDERED: POTASSIUM CL SA 10 MEQ TAB PO ONE (06:18)
[2018-06-25] MEDS: INSULIN -REGULAR HUMAN 50 UNIT/0.5 ML ML SQ SCH ×3 (07:30→11:30)
[2018-06-25] MEDS: ARFORMOTEROL TARTRATE 15 MCG/2 ML VIAL.NEB NEB SCH ×2 (07:37→20:05)
[2018-06-25] MEDS: ENOXAPARIN 80 MG/0.8 ML SQ SCH (08:30)
[2018-06-25] MEDS: FUROSEMIDE 20 MG/ 2ML VIAL IV SCH ×2 (08:31→16:18)
[2018-06-25] MEDS: CODEINE 30MG/APAP 300MG TAB PO PRN ×2 (08:31→21:04)
--- NOTE | 2018-06-25 10:46 | P.PN ---
Subjective Date of Service: 06/25/18 Chief Complaint: Respiratory failure Subjective: Improving NAUSEA, VOMITING, STILL INTUBATED, TO BE TAPERED OFF TO EXTUBATE. REFUGIO IS ANXIOUS, INTUBATED IN AM BUT LATER WAS EXTUBATED BY DR. RESENDIZ. EXTUBATED, STILL VERY WEAK. DENIES CHEST PAIN. Review of Systems 10-point ROS is otherwise unremarkable General: Weakness, Malaise Respiratory: Shortness of Breath Physical Examination - Vital Signs Temperature: 98 F Blood Pressure: 155/80 Pulse: 91 Respirations: 27 Pulse Ox (%): 96 - Physical Exam General: Alert, Mild distress, Obese HEENT: Atraumatic, PERRLA, EOMI Neck: Supple, JVD not distended Respiratory: Diminished Cardiovascular: Regular rate/rhythm, Normal S1 S2 Gastrointestinal: Normal bowel sounds, No tenderness Musculoskeletal: No tenderness Integumentary: No rashes Neurological: Normal speech, Normal tone, Normal affect Lymphatics: No axilla or inguinal lymphadenopathy - Studies Microbiology Data (last 24 hrs): 06/22/18 15:20 Catheterized Urine [place] Count - Final >100,000 CFU/ML. 06/22/18 15:20 Catheterized Urine - Final Enterococcus Faecalis Medications List Reviewed: Yes Assessment And Plan - Current Problems (Diagnosis) (1) Respiratory failure Current Visit: Yes Status: Chronic Plan: SHE HAS SEVERE COPD. COMES BACK WITH HYPERCAPNEA AND INTUBATED STATUS DESPITE TREATMENT. FAMILY IS AWARE AND NOT WILLING TO LET HER SUFFER IN SUCH CONDITION FOR LONG. SON IS WORRIED ABOUT HER POOR QUALITY OF LIFE. I AGREE. RESUME SOLUMEDROL. NEBS EXTUBATION IN AM IF SHE IS AWAKE ENOUGH. RESUME LASIX SOLUMEDROL IV. NEBS EXTUBATE IF SAFE TODAY. STABLE. EXTUBATED TODAY. PROGNOSIS OVERALL POOR. COPD EXTUBATED NOW. STILL VERY FRAIL. ABG TODAY. REDUCE OXYGEN IF WE CAN TO 2 LT. Qualifiers: Chronicity: acute on chronic Respiratory failure complication: hypercapnia Qualified Code(s): J96.22 - Acute and chronic respiratory failure with hypercapnia (2) Subendocardial [place] first episode care Current Visit: Yes Status: Acute Plan: THIS MAY BE FROM ACUTE STRAIN. MEDICAL MANAGEMENT. SHE IS NOT A CANDIDATE FOR ANY INVASIVE EVALUATION. (3) Atrial fibrillation, new onset Current Visit: No Status: Acute Plan: DIAGNOSED FIRST TIME LAST VISIT. RESUME BETAPACE AND ELIQUIS. DC LOVENOX GO BACK TO [facility].
[2018-06-25 11:15] LABS: Arterial Blood Carboxyhemoglob 1.5 % (0-1.5); Blood Gas Oxyhemoglobin 95.2 % (94-97)
[2018-06-25] MEDS: URSODIOL 300 MG CAP PO SCH (16:18)
[2018-06-25] MEDS: SOTALOL HCL 80 MG TAB PO SCH (17:59)
[2018-06-25] MEDS ORDERED: URSODIOL 500 MG TAB PO SCH (21:00)
[2018-06-25] MEDS: ARIPiprazole 5 MG TAB PO SCH (21:04)
[2018-06-25] MEDS: MIRTAZAPINE 15 MG TAB PO SCH (21:04)
[2018-06-25] MEDS: APIXABAN 5 MG TABLET PO SCH (21:05)
[2018-06-25] MEDS: DIAZEPAM 2 MG TABLET PO PRN (21:25)
[2018-06-26] MEDS: PIPER/TAZO/NS 3.375gm 3.375 GM/100 ML BAG IVPB SCH ×2 (00:57→08:31)
[2018-06-26] MEDS: IPRATROPIUM BROM 0.5MG/2.5ML NEB SCH ×4 (01:50→19:48)
[2018-06-26] MEDS: CODEINE 30MG/APAP 300MG TAB PO PRN ×2 (03:49→17:16)
[2018-06-26 04:41] LABS: Magnesium 2.1 mg/dL (1.8-2.4); Potassium 3.6 mmol/L (3.5-5.1)
[2018-06-26] MEDS ORDERED: POTASSIUM 25 MEQ EFFERV TAB PO ONE (04:59)
[2018-06-26] MEDS: SOTALOL HCL 80 MG TAB PO SCH ×2 (06:44→17:30)
[2018-06-26] MEDS: URSODIOL 300 MG CAP PO SCH ×2 (08:00→17:16)
[2018-06-26] MEDS: FUROSEMIDE 20 MG/ 2ML VIAL IV SCH (08:28)
[2018-06-26] MEDS: VENLAFAXINE HCL XR 75 MG CAP PO SCH (08:29)
[2018-06-26] MEDS: AMLODIPINE 5 MG TAB PO SCH (08:30)
[2018-06-26] MEDS: APIXABAN 5 MG TABLET PO SCH ×2 (08:30→20:41)
[2018-06-26] MEDS: LOSARTAN POTASSIUM 50 MG TABLET PO SCH (08:30)
[2018-06-26] MEDS: ARFORMOTEROL TARTRATE 15 MCG/2 ML VIAL.NEB NEB SCH ×2 (08:51→19:48)
--- NOTE | 2018-06-26 12:07 | P.PN ---
Subjective Date of Service: 06/26/18 Chief Complaint: WEAK BUT BETTER. Subjective: Improving NAUSEA, VOMITING, STILL INTUBATED, TO BE TAPERED OFF TO EXTUBATE. REFUGIO IS ANXIOUS, INTUBATED IN AM BUT LATER WAS EXTUBATED BY DR. RESENDIZ. EXTUBATED, STILL VERY WEAK. DENIES CHEST PAIN. ABLE TO BREATH ON HER OWN. STILL WEAK, NOT ABLE TO TOLERATE ANY PT. Review of Systems 10-point ROS is otherwise unremarkable General: Weakness, Malaise Respiratory: Cough, Shortness of Breath, As per HPI Physical Examination - Vital Signs Temperature: 96.9 F Blood Pressure: 139/65 Pulse: 60 Respirations: 18 Pulse Ox (%): 95 - Physical Exam General: Alert, Mild distress, Obese HEENT: Atraumatic, PERRLA, EOMI Neck: Supple, JVD not distended Respiratory: Clear to auscultation bilaterally, Normal air movement Cardiovascular: Regular rate/rhythm, Normal S1 S2 Gastrointestinal: Normal bowel sounds, No tenderness Musculoskeletal: No tenderness Integumentary: No rashes Neurological: Normal speech, Normal tone, Normal affect Lymphatics: No axilla or inguinal lymphadenopathy - Studies Medications List Reviewed: Yes Assessment And Plan - Current Problems (Diagnosis) (1) Respiratory failure Current Visit: Yes Status: Chronic Plan: SHE HAS SEVERE COPD. COMES BACK WITH HYPERCAPNEA AND INTUBATED STATUS DESPITE TREATMENT. FAMILY IS AWARE AND NOT WILLING TO LET HER SUFFER IN SUCH CONDITION FOR LONG. SON IS WORRIED ABOUT HER POOR QUALITY OF LIFE. I AGREE. RESUME SOLUMEDROL. NEBS EXTUBATION IN AM IF SHE IS AWAKE ENOUGH. RESUME LASIX SOLUMEDROL IV. NEBS EXTUBATE IF SAFE TODAY. STABLE. EXTUBATED TODAY. PROGNOSIS OVERALL POOR. COPD EXTUBATED NOW. STILL VERY FRAIL. ABG TODAY. REDUCE OXYGEN IF WE CAN TO 2 LT. RESUME BROVANA, AND OTHER NEBS. ABX CAN BE DEESCALATED. Qualifiers: Chronicity: acute on chronic Respiratory failure complication: hypercapnia Qualified Code(s): J96.22 - Acute and chronic respiratory failure with hypercapnia (2) Subendocardial [place] first episode care Current Visit: Yes Status: Acute Plan: THIS MAY BE FROM ACUTE STRAIN. MEDICAL MANAGEMENT. SHE IS NOT A CANDIDATE FOR ANY INVASIVE EVALUATION. (3) Atrial fibrillation, new onset Current Visit: No Status: Acute Plan: DIAGNOSED FIRST TIME LAST VISIT. RESUME BETAPACE AND ELIQUIS. DC LOVENOX GO BACK TO BETAPACE AND ELIQUIS. (4) Dehydration Current Visit: Yes Status: Acute Plan: REDUCE LASIX TO ORAL SMALLER DOSE. CHECK LAB DAILY.
[2018-06-26] MEDS: AMOX/K CLAV 875 MG TAB PO SCH ×2 (13:00→20:41)
--- NOTE | 2018-06-26 15:33 | RAD REPORT ---
EXAM DESCRIPTION: RAD - Chest Single View - 06/26/2018 2:15 pm CLINICAL HISTORY: CHF FU Chest pain. COMPARISON: Chest Single View dated 06/23/2018; Chest Single View dated 06/22/2018; Chest Single View da leanne 06/14/2018; Chest Single View dated 03/16/2018; Chest For Pe Angio dated 06/22/2018 FINDINGS: Portable technique limits examination quality. Left lung base appears hazy which may be due to infiltrate/pleural fluid. Full assessment is limited due to portable technique and superimposition of soft tissue. The heart is moderately enlarged in siz e. Aortic atherosclerosis.
[2018-06-26] MEDS: ARIPiprazole 5 MG TAB PO SCH (20:41)
[2018-06-26] MEDS: MIRTAZAPINE 15 MG TAB PO SCH (20:41)
[2018-06-26] MEDS: DIAZEPAM 2 MG TABLET PO PRN (20:42)
[2018-06-27] MEDS: IPRATROPIUM BROM 0.5MG/2.5ML NEB SCH ×4 (02:19→19:37)
[2018-06-27] MEDS: SOTALOL HCL 80 MG TAB PO SCH ×2 (06:30→17:40)
[2018-06-27] MEDS: ARFORMOTEROL TARTRATE 15 MCG/2 ML VIAL.NEB NEB SCH ×2 (08:23→19:36)
[2018-06-27] MEDS: URSODIOL 300 MG CAP PO SCH ×2 (09:41→17:40)
[2018-06-27] MEDS: FUROSEMIDE 20 MG TABLET PO SCH (09:41)
[2018-06-27] MEDS: AMOX/K CLAV 875 MG TAB PO SCH ×2 (09:41→20:40)
[2018-06-27] MEDS: LOSARTAN POTASSIUM 50 MG TABLET PO SCH (09:41)
[2018-06-27] MEDS: AMLODIPINE 5 MG TAB PO SCH (09:42)
[2018-06-27] MEDS: VENLAFAXINE HCL XR 75 MG CAP PO SCH (09:42)
[2018-06-27] MEDS: APIXABAN 5 MG TABLET PO SCH ×2 (09:43→20:40)
[2018-06-27] MEDS: CODEINE 30MG/APAP 300MG TAB PO PRN (14:10)
[2018-06-27 14:51] LABS: Arterial Blood Carboxyhemoglob 1.6 % (0-1.5); Blood Gas Oxyhemoglobin 93.8 % (94-97); Blood O2 Saturation 95.6 % (92-98.5)
--- NOTE | 2018-06-27 18:32 | P.PN ---
Subjective Date of Service: 06/27/18 Chief Complaint: WEAK BUT BETTER. Subjective: No new changes NAUSEA, VOMITING, STILL INTUBATED, TO BE TAPERED OFF TO EXTUBATE. REFUGIO IS ANXIOUS, INTUBATED IN AM BUT LATER WAS EXTUBATED BY DR. RESENDIZ. EXTUBATED, STILL VERY WEAK. DENIES CHEST PAIN. ABLE TO BREATH ON HER OWN. STILL WEAK, NOT ABLE TO TOLERATE ANY PT. SHE STAYS WEAK, NOT ABLE TO DO MUCH PT. Review of Systems 10-point ROS is otherwise unremarkable General: Weakness, Malaise Respiratory: Shortness of Breath (NOT BAD TODAY) Physical Examination - Vital Signs Temperature: 97.4 F Blood Pressure: 121/54 Pulse: 74 Respirations: 17 Pulse Ox (%): 95 - Physical Exam General: Alert, Mild distress, Obese HEENT: Atraumatic, PERRLA, EOMI Neck: Supple, JVD not distended Respiratory: Clear to auscultation bilaterally, Normal air movement Cardiovascular: Regular rate/rhythm, Normal S1 S2 Gastrointestinal: Normal bowel sounds, No tenderness Musculoskeletal: No tenderness Integumentary: No rashes Neurological: Normal speech, Normal tone, Normal affect Lymphatics: No axilla or inguinal lymphadenopathy - Studies Microbiology Data (last 24 hrs): 06/22/18 14:20 Blood - Blood Aerobic Blood Culture - Final No growth in 5 days. 06/22/18 14:20 Blood - Blood Anaerobic Blood Culture - Final 06/22/18 14:30 Blood - Blood Aerobic Blood Culture - Final No growth in 5 days. 06/22/18 14:30 Blood - Blood Anaerobic Blood Culture - Final No growth in 5 days. Medications List Reviewed: Yes Assessment And Plan - Current Problems (Diagnosis) (1) Respiratory failure Current Visit: Yes Status: Chronic Plan: SHE HAS SEVERE COPD. COMES BACK WITH HYPERCAPNEA AND INTUBATED STATUS DESPITE TREATMENT. FAMILY IS AWARE AND NOT WILLING TO LET HER SUFFER IN SUCH CONDITION FOR LONG. SON IS WORRIED ABOUT HER POOR QUALITY OF LIFE. I AGREE. RESUME SOLUMEDROL. NEBS EXTUBATION IN AM IF SHE IS AWAKE ENOUGH. RESUME LASIX SOLUMEDROL IV. NEBS EXTUBATE IF SAFE TODAY. STABLE. EXTUBATED TODAY. PROGNOSIS OVERALL POOR. COPD EXTUBATED NOW. STILL VERY FRAIL. ABG TODAY. REDUCE OXYGEN IF WE CAN TO 2 LT. RESUME BROVANA, AND OTHER NEBS. ABX CAN BE DEESCALATED. LETHARGIC. STAT ABG TODAY. STABLE. HYPOXIC BUT CONTROLLED WITH LOW GRADE OXYGEN. AVOID HYPERCAPNEA. Qualifiers: Chronicity: acute on chronic Respiratory failure complication: hypercapnia Qualified Code(s): J96.22 - Acute and chronic respiratory failure with hypercapnia (2) Subendocardial [place] first episode care Current Visit: Yes Status: Acute Plan: THIS MAY BE FROM ACUTE STRAIN. MEDICAL MANAGEMENT. SHE IS NOT A CANDIDATE FOR ANY INVASIVE EVALUATION. (3) Atrial fibrillation, new onset Current Visit: No Status: Acute Plan: DIAGNOSED FIRST TIME LAST VISIT. RESUME BETAPACE AND ELIQUIS. DC LOVENOX GO BACK TO BETAPACE AND ELIQUIS. (4) Dehydration Current Visit: Yes Status: Acute Plan: REDUCE LASIX TO ORAL SMALLER DOSE. CHECK LAB DAILY. (5) residential resident Current Visit: Yes Status: Acute Plan: SON PHILL.Juan Antonio I ADVIED NH FOR LIFE TIME BUT SHE IS ADAMENT IN GOING HOME AFTER NH. SHE CARRIES POOR PROGNOSIS.
[2018-06-27] MEDS: ARIPiprazole 5 MG TAB PO SCH (20:40)
[2018-06-27] MEDS: MIRTAZAPINE 15 MG TAB PO SCH (20:40)
[2018-06-28] MEDS: IPRATROPIUM BROM 0.5MG/2.5ML NEB SCH ×4 (01:22→20:00)
[2018-06-28] MEDS: CODEINE 30MG/APAP 300MG TAB PO PRN ×3 (01:59→22:12)
[2018-06-28] MEDS: SOTALOL HCL 80 MG TAB PO SCH ×2 (05:21→18:14)
[2018-06-28 05:43] LABS: Absolute Lymphocytes (CBC) 1.6 K/uL (0.7-4.9); Absolute Monocytes 1.6 K/uL (0.1-1.3); Absolute Neutrophil 11.4 K/uL (1.8-8.0); Basophils % 0.4 % (0-1.3); Eosinophils % 2.8 % (0-4.4); Hematocrit 37.6 % (36.0-45.0); Lymphocytes % 10.7 % (15.3-44.8); MPV 9.9 fL (7.6-11.3); Monocytes % 10.3 % (3.3-12.3); RBC Red Blood Cell Count 4.38 M/uL (3.86-4.86)
[2018-06-28 05:59] LABS: Potassium 3.8 mmol/L (3.5-5.1)
[2018-06-28] MEDS: ARFORMOTEROL TARTRATE 15 MCG/2 ML VIAL.NEB NEB SCH ×2 (08:22→20:00)
[2018-06-28] MEDS ORDERED: POTASSIUM CL SA 10 MEQ TAB PO ONE (09:00)
[2018-06-28] MEDS: URSODIOL 300 MG CAP PO SCH ×2 (09:20→18:14)
[2018-06-28] MEDS: AMOX/K CLAV 875 MG TAB PO SCH ×2 (09:20→20:37)
[2018-06-28] MEDS: FUROSEMIDE 20 MG TABLET PO SCH (09:21)
[2018-06-28] MEDS: VENLAFAXINE HCL XR 75 MG CAP PO SCH (09:21)
[2018-06-28] MEDS: APIXABAN 5 MG TABLET PO SCH ×2 (09:25→20:37)
[2018-06-28] MEDS: AMLODIPINE 5 MG TAB PO SCH (09:25)
[2018-06-28] MEDS: LOSARTAN POTASSIUM 50 MG TABLET PO SCH (09:25)
--- NOTE | 2018-06-28 11:15 | EKG ---
Test Date: 2018-06-22 Test Time: 14:27:06 Maintenance And Utilities Supervisor: SEUN MEASUREMENT RESULTS: Intervals: Rate: 74 RI: 128 QRSD: 68 QT: 462 QTc: 512 [place]: P: 86 RI: 128 QRS: 54 T: 65 INTERPRETIVE STATEMENTS: Normal sinus rhythm Prolonged QT Abnormal ECG Compared to ECG 06/17/2018 11:11:59 Prolonged QT interval now present Electronically Signed On 06-22-18 16:58:11 CDT by Paul Hoffman
--- NOTE | 2018-06-28 13:04 | P.DS ---
Admission Date: 06/22/18 Discharge Date: 06/28/18 Disposition: TRANSFER TO HALF-WAY Discharge Condition: FAIR Reason for Admission: WEAK BUT BETTER. - Problems (1) Respiratory failure Current Visit: Yes Status: Chronic Qualifiers: Chronicity: acute on chronic Respiratory failure complication: hypercapnia Qualified Code(s): J96.22 - Acute and chronic respiratory failure with hypercapnia (2) Subendocardial [place] first episode care Current Visit: Yes Status: Acute (3) Atrial fibrillation, new onset Current Visit: No Status: Acute (4) Dehydration Current Visit: Yes Status: Acute (5) skilled nursing resident Current Visit: Yes Status: Acute Brief History of Present Illness: MS. FOWLER IS 82 YEARS OLD LADY WITH SEVERE COPD, AND RECENT ADMISSION FOR A.FIB. WAS SENT HOME IN STABLE CONDITION BUT WITH GUARDED PROGNOSIS, COMES BACK WITH DYSPNEA, OBTUNDATION, INTUBATED AT HALF-WAY AND BROUGHT TO ER. SHE IS SEDATED FOR NOW. I TALKED TO SON. MS. FOWLER IS DOING A LOT BETTER. SHE IS STIL VERY WEAK AND WILL GO BACK TO [place]. SHE HAD ASPIRATION PNEUMONIA PER DR. RESENDIZ AND THAT MAY HAVE HAPPENED IN [place]. AUGMENTIN GIVEN FOR IT. Vital Signs/Physical Exam: Temp Pulse Resp BP Pulse Ox 96.9 F 59 18 144/63 H 99 06/28/18 08:00 06/28/18 09:25 06/28/18 08:00 06/28/18 09:25 06/28/18 08:00 Laboratory Data at Discharge: WBC 15.1 K/uL (4.3-10.9) H 06/28/18 05:12 Hgb 12.2 g/dL (12.0-15.0) 06/28/18 05:12 Hct 37.6 % (36.0-45.0) 06/28/18 05:12 Plt Count 326 K/uL (152-406) 06/28/18 05:12 PT 22.6 SECONDS (9.5-12.5) H 06/22/18 14:20 INR 1.97 06/22/18 14:20 Sodium 135 mmol/L (136-145) L 06/28/18 05:12 Potassium 3.8 mmol/L (3.5-5.1) 06/28/18 05:12 BUN 31 mg/dL (7-18) H 06/28/18 05:12 Creatinine 1.13 mg/dL (0.55-1.3) 06/28/18 05:12 Glucose 122 mg/dL (74-106) H 06/28/18 05:12 Magnesium 2.1 mg/dL (1.8-2.4) 06/26/18 03:53 Total Bilirubin 0.4 mg/dL (0.2-1.0) 06/22/18 14:20 AST 21 U/L (15-37) 06/22/18 14:20 ALT 19 U/L (12-78) 06/22/18 14:20 Alkaline Phosphatase 67 U/L (45-117) 06/22/18 14:20 Troponin I 1.00 ng/mL (0.0-0.045) H* 06/23/18 01:40 Home Medications: ARIPiprazole [Abilify*] 5 mg PO DAILY 03/17/18 Albuterol Sulfate [Proair Hfa] 2 puff IH QID 03/17/18 Amlodipine [Norvasc*] 5 mg PO DAILY 03/17/18 Codeine/APAP [Tylenol #3*] 1 tab PO Q4HP PRN 03/17/18 Losartan Potassium [Cozaar*] 50 mg PO DAILY 03/17/18 Mirtazapine [Remeron*] 15 mg PO BEDTIME 03/17/18 Umeclidinium Brm/Vilanterol Tr [Anoro Ellipta 62.5-25 Mcg INH] 1 puff IH DAILY 03/17/18 Ursodiol 300 mg PO BID 03/17/18 Venlafaxine HCl [Venlafaxine HCl ER] 150 mg PO DAILY WITH BREAKFAST 03/17/18 diazePAM [Diazepam] 5 mg PO BEDTIME 03/17/18 Apixaban [Eliquis] 5 mg PO BID tablet 06/20/18 Arformoterol Tartrate [Brovana] 15 mcg NEB BIDRESP vial.neb 06/20/18 Sotalol HCl [Betapace*] 80 mg PO BID 6AM 6PM tab 06/20/18 cloNIDine HCl [Catapres*] 0.1 mg PO Q2HP PRN tab 06/20/18 Amox/Clavulanate [Augmentin 875-125 Tab*] 875 mg PO BID tab 06/28/18 Furosemide [Lasix*] 20 mg PO DAILY tab 06/28/18 Followup: Arjun Zamora MD [ACTIVE - CAN ADMIT] - Slade Saldana MD [ACTIVE - CAN ADMIT] -
[2018-06-28] MEDS: ARIPiprazole 5 MG TAB PO SCH (20:37)
[2018-06-28] MEDS: MIRTAZAPINE 15 MG TAB PO SCH (20:37)
[2018-06-29] MEDS: IPRATROPIUM BROM 0.5MG/2.5ML NEB SCH ×4 (02:00→20:00)
[2018-06-29] MEDS: SOTALOL HCL 80 MG TAB PO SCH ×2 (05:50→17:22)
[2018-06-29 06:15] LABS: Absolute Lymphocytes (CBC) 1.6 K/uL (0.7-4.9); Absolute Monocytes 2.6 K/uL (0.1-1.3); Absolute Neutrophil 18.9 K/uL (1.8-8.0); Basophils % 0.7 % (0-1.3); Eosinophils % 0.2 % (0-4.4); Hematocrit 38.2 % (36.0-45.0); Lymphocytes % 6.8 % (15.3-44.8); MPV 9.6 fL (7.6-11.3); RBC Red Blood Cell Count 4.41 M/uL (3.86-4.86)
[2018-06-29 06:34] LABS: Potassium 4.8 mmol/L (3.5-5.1)
[2018-06-29 06:39] LABS: Blood Morphology Comment NOT SEEN (NOT SEEN); Platelet Estimate ADEQ
[2018-06-29] MEDS: ARFORMOTEROL TARTRATE 15 MCG/2 ML VIAL.NEB NEB SCH ×2 (08:38→20:00)
[2018-06-29] MEDS: FUROSEMIDE 20 MG TABLET PO SCH (09:01)
[2018-06-29] MEDS: AMOX/K CLAV 875 MG TAB PO SCH (09:01)
[2018-06-29] MEDS: VENLAFAXINE HCL XR 75 MG CAP PO SCH (09:02)
[2018-06-29] MEDS: APIXABAN 5 MG TABLET PO SCH ×2 (09:03→20:56)
[2018-06-29] MEDS: AMLODIPINE 5 MG TAB PO SCH (09:03)
[2018-06-29] MEDS: URSODIOL 300 MG CAP PO SCH ×2 (09:03→17:22)
[2018-06-29] MEDS: LOSARTAN POTASSIUM 50 MG TABLET PO SCH (09:04)
[2018-06-29] MEDS: CODEINE 30MG/APAP 300MG TAB PO PRN ×2 (11:03→17:22)
--- NOTE | 2018-06-29 12:36 | RAD REPORT ---
EXAM DESCRIPTION: RAD - Chest Pa And Lat (2 Views) - 06/29/2018 12:22 pm CLINICAL HISTORY: Elevated white blood cell count COMPARISON: Portable chest June 26, CT chest June 22, portable chest June 22 TECHNIQUE: PA and lateral views of the chest were obtained. FINDINGS: The lungs are fibrotic as a baseline. The June 22 imaging showed right-sided pneumonia c hanges that have cleared back to the baseline fibrosis. Medial left lung base remains dense. Lateral view is too degraded heart size is upper normal but stable. No vascular engorgement. No pleural eff usion or pneumothorax seen. No acute bony finding noted. No aortic abnormality. IMPRESSION: Medial left base increased opacification suspicious for pneumonia and/ or atelectasis. Baseline interstitial fibrotic pattern. Right-side pneumonia changes seen June 22 have cleared back to baseline fibrotic pattern.
--- NOTE | 2018-06-29 15:49 | RAD REPORT ---
EXAM DESCRIPTION: CT - Thorax W/ Con - 06/29/2018 3:28 pm CLINICAL HISTORY: Dyspnea, shortness of breath COMPARISON: CT chest June 22, 2018 TECHNIQUE: Dynamically enhanced 5 mm thick images of the chest were obtained during administration o f 100 mL non-ionic IV contrast. All CT scans are performed using dose optimization technique as appropriate and may include automated exposure control or mA/KV adjustment according to patient size. FINDINGS: No focal mass or consolidation. There is partial atelectasis of each lower lobe and glass deposition tender ior gutters. Small bilateral pleural effusions are present. No pneumothorax. No pleural based mass. N o chest wall mass or abnormal axillary lymphadenopathy. No abnormal mediastinal or hilar mass or lymphadenopathy seen. No esophageal dilatation. There is amilcar d material within the lumen of the esophagus either from reflux or decreased peristalsis. Pericardial effusion is present with a slightly thickened and shaggy pericardium. Thickness is up to 16 mm and these changes are progressive from the short interval June 22 study. Correlation is neede d with any pericarditis clinical findings. IMPRESSION: Pericardial effusion up to 16 mm in thickness with slightly thickened and shaggy pericar dium. This is progressive from June 22 and needs correlation with any pericarditis clinical finding s. Partial atelectasis in each lower lobe with small bilateral pleural effusions. No mass or infiltrate of the lung parenchyma.
[2018-06-29 15:52] LABS: Arterial Blood Carboxyhemoglob 1.7 % (0-1.5); Blood Gas Oxyhemoglobin 82.8 % (94-97); Blood O2 Saturation 84.6 % (92-98.5)
[2018-06-29 16:55] LABS: Urine Appearance CLOUDY; Urine Bilirubin NEGATIVE (NEG); Urine Blood 3+ (NEG); Urine Color YELLOW; Urine Glucose NEGATIVE (NEG); Urine Protein TRACE (NEG); Urine Urobilinogen 0.2 mg/dL (0.2-1.0); Urine pH 5.5 (5.0-7.0)
[2018-06-29] MEDS ORDERED: Meropenem 500 MG VIAL IV SCH (17:00)
[2018-06-29 17:04] LABS: Urine Microscopic Reflex ORDER UMIC
[2018-06-29 17:06] LABS: Urine Bacteria 20-50 /HPF (<20); Urine Culture Reflex Order REFLEXED; Urine RBC <5 /HPF (NONE SEEN); Urine Yeast MANY (NONE SEEN)
[2018-06-29] MEDS: Meropenem 500 MG in NA CHLORIDE 0.9% 100 ML IV SCH (17:21)
[2018-06-29] MEDS: MIRTAZAPINE 15 MG TAB PO SCH (20:56)
[2018-06-29] MEDS: AMOXICILLIN TRIHYDR 250 MG CAP PO SCH (20:56)
[2018-06-29] MEDS: ARIPiprazole 5 MG TAB PO SCH (20:56)
--- NOTE | 2018-06-29 21:34 | P.PN ---
Subjective Date of Service: 06/29/18 Chief Complaint: SHORT OF BREATH AGAIN THIS AM NAUSEA, VOMITING, STILL INTUBATED, TO BE TAPERED OFF TO EXTUBATE. REFUGIO IS ANXIOUS, INTUBATED IN AM BUT LATER WAS EXTUBATED BY DR. RESENDIZ. EXTUBATED, STILL VERY WEAK. DENIES CHEST PAIN. ABLE TO BREATH ON HER OWN. STILL WEAK, NOT ABLE TO TOLERATE ANY PT. SHE STAYS WEAK, NOT ABLE TO DO MUCH PT. MS. FOWLER WAS LOOKING GOOD FOR LAST 3 DAYS UNTIL THIS AM WHEN SHE LOOKED SLIGHTLY MORE DYSPNEIC AGAIN AND WBC COUNT WENT UP TO 23K. I ORDERED CT CHEST WITH CONTRAST- NEW FINDING IS THICKENED PERICARDIUM BUTAGAIN ECHO NEEDS TO BE DONE. UA UCS ARE REDONE ST. CATH. SHE HAS NO UTI SYMPTOMS. BLOOD CULTURES ARE DONE. Review of Systems General: Malaise Respiratory: Shortness of Breath (MILD WORSE.) Physical Examination - Vital Signs Temperature: 97.2 F Blood Pressure: 151/64 Pulse: 67 Respirations: 20 Pulse Ox (%): 98 - Physical Exam General: Alert, Mild distress, Obese HEENT: Atraumatic, PERRLA, EOMI Neck: Supple, JVD not distended Respiratory: Diminished Cardiovascular: Regular rate/rhythm, Normal S1 S2 Gastrointestinal: Normal bowel sounds, No tenderness Musculoskeletal: No tenderness Integumentary: No rashes Neurological: Normal speech, Normal tone, Normal affect Lymphatics: No axilla or inguinal lymphadenopathy - Studies Medications List Reviewed: Yes Assessment And Plan - Current Problems (Diagnosis) (1) Respiratory failure Current Visit: Yes Status: Chronic Plan: SHE HAS SEVERE COPD. COMES BACK WITH HYPERCAPNEA AND INTUBATED STATUS DESPITE TREATMENT. FAMILY IS AWARE AND NOT WILLING TO LET HER SUFFER IN SUCH CONDITION FOR LONG. SON IS WORRIED ABOUT HER POOR QUALITY OF LIFE. I AGREE. RESUME SOLUMEDROL. NEBS EXTUBATION IN AM IF SHE IS AWAKE ENOUGH. RESUME LASIX SOLUMEDROL IV. NEBS EXTUBATE IF SAFE TODAY. STABLE. EXTUBATED TODAY. PROGNOSIS OVERALL POOR. COPD EXTUBATED NOW. STILL VERY FRAIL. ABG TODAY. REDUCE OXYGEN IF WE CAN TO 2 LT. RESUME BROVANA, AND OTHER NEBS. ABX CAN BE DEESCALATED. LETHARGIC. STAT ABG TODAY. STABLE. HYPOXIC BUT CONTROLLED WITH LOW GRADE OXYGEN. AVOID HYPERCAPNEA. CT SCAN SHOWS THAT PNEUMONIA HAS CLEARED WELL. THERE IS A NEW FINDING OF POSSIBLE PERICADIAL EFFUSION WITH THICKENING. I CALLED DR. FAULKNER AND HE ADVISED ECHO IT IS MORE ACCURATE FOR THIS ISSUE. I ALSO TALKED TO DR. RESENDIZ. I ADDED MERREM AUGMENTIN IS FAILING TO WORK. WILL ALSO ORDER SONOGRAM OF ABDOMEN. DC HAS BEEN DELAYED. I TALKED TO FAMILY MEMBERS AND ADVISED [facility]. SHE WILL NOT DO WELL. THEY ARE ASKING ABOUT HOSPICE. I ADVISED TO WAIT ABOUT 2 WEEKS AT [facility] WITH IV ABX AND THEN DECIDE. Qualifiers: Chronicity: acute on chronic Respiratory failure complication: hypercapnia Qualified Code(s): J96.22 - Acute and chronic respiratory failure with hypercapnia (2) Subendocardial [place] first episode care Current Visit: Yes Status: Acute Plan: THIS MAY BE FROM ACUTE STRAIN. MEDICAL MANAGEMENT. SHE IS NOT A CANDIDATE FOR ANY INVASIVE EVALUATION. (3) Atrial fibrillation, new onset Current Visit: No Status: Acute Plan: DIAGNOSED FIRST TIME LAST VISIT. RESUME BETAPACE AND ELIQUIS. DC LOVENOX GO BACK TO BETAPACE AND ELIQUIS. (4) Dehydration Current Visit: Yes Status: Acute Plan: REDUCE LASIX TO ORAL SMALLER DOSE. CHECK LAB DAILY. (5) intermediate resident Current Visit: Yes Status: Acute Plan: SON PHILL.Juan Antonio I ADVIED NH FOR LIFE TIME BUT SHE IS ADAMENT IN GOING HOME AFTER NH. SHE CARRIES POOR PROGNOSIS.
[2018-06-30] MEDS: Meropenem 500 MG in NA CHLORIDE 0.9% 100 ML IV SCH ×3 (00:56→17:43)
[2018-06-30] MEDS: IPRATROPIUM BROM 0.5MG/2.5ML NEB SCH ×4 (02:00→21:39)
[2018-06-30 05:20] LABS: Absolute Lymphocytes (CBC) 1.1 K/uL (0.7-4.9); Absolute Monocytes 1.9 K/uL (0.1-1.3); Absolute Neutrophil 17.8 K/uL (1.8-8.0); Basophils % 0.4 % (0-1.3); Eosinophils % 0.7 % (0-4.4); Hematocrit 36.6 % (36.0-45.0); Lymphocytes % 5.4 % (15.3-44.8); MPV 9.6 fL (7.6-11.3); Monocytes % 9.1 % (3.3-12.3); RBC Red Blood Cell Count 4.24 M/uL (3.86-4.86)
[2018-06-30 05:37] LABS: Albumin 2.5 g/dL (3.4-5.0); Bilirubin Direct 0.2 mg/dL (0-0.2); Bilirubin Total 0.5 mg/dL (0.2-1.0); Potassium 4.2 mmol/L (3.5-5.1)
[2018-06-30] MEDS: SOTALOL HCL 80 MG TAB PO SCH ×2 (06:22→17:43)
[2018-06-30] MEDS: ARFORMOTEROL TARTRATE 15 MCG/2 ML VIAL.NEB NEB SCH ×2 (07:40→21:39)
--- NOTE | 2018-06-30 08:38 | P.PN ---
Subjective Date of Service: 06/30/18 Chief Complaint: Shortness of breath Patient is been complaining of shortness of breath former smoker hypoxic hypercapnic minimal pericardial infusion on preliminary echo report by the greenhouse technician official report is pending denies any fever chills chest pain cough sputum or hemoptysis Review of Systems General: Weakness Respiratory: Shortness of Breath Physical Examination - Vital Signs Temperature: 97.8 F Blood Pressure: 165/67 Pulse: 82 Respirations: 18 Pulse Ox (%): 94 - Physical Exam General: Alert, Mild distress Respiratory: Clear to auscultation bilaterally Cardiovascular: No edema, Normal S1 S2 Gastrointestinal: Normal bowel sounds, Soft and benign - Studies Medications List Reviewed: Yes Assessment & Plan - Problems (Diagnosis) (1) Respiratory failure Current Visit: Yes Status: Acute Plan: Patient is hypoxic hypercapnic respiratory failure mild pericardial effusion, bilateral pleural effusion no evidence of pneumonia some interstitial changes probably has underlying diastolic dysfunction I suggest increasing Lasix probably has underlying urosepsis white count is declining cultures are pending probably has underlying obstructive sleep apnea and a combination of COPD Qualifiers: Chronicity: acute on chronic
--- NOTE | 2018-06-30 09:16 | ECHO ---
HEIGHT: 5 ft 6 in WEIGHT: 171 lb 12.8 oz DATE OF STUDY: 06/30/[address]: Slade Saldana MD 2-DIMENSIONAL: YES M.MODE: YES DOPPLER: YES COLOR FLOW: YES TDS: YES PORTABLE: NO DEFINITY: NO BUBBLE STUDY: NO DIAGNOSIS: EDEMA, DYSPNEA CARDIAC HISTORY: CATHERIZATION: SURGERY: PROSTHETIC VALVE: PACEMAKER: MEASUREMENTS (cm) DIASTOLIC (NORMALS) SYSTOLIC (NORMALS) IVSd 1.1 (0.6-1.2) LA Diam 3.3 (1.9-4.0) LVEF 58% LVIDd 3.7 (3.5-5.7) LVIDs 2.6 (2.0-3.5) %FS 30% LVPWd 1.3 (0.6-1.2) Ao Diam 3.1 (2.0-3.7) 2 DIMENSIONAL ASSESSMENT: RIGHT ATRIUM: NORMAL LEFT ATRIUM: NORMAL RIGHT VENTRICLE: NORMAL LEFT VENTRICLE: NORMAL TRICUSPID VALVE: NORMAL MITRAL VALVE: NORMAL PULMONIC VALVE: NORMAL AORTIC VALVE: 3 LEAFLET, MILD THICKENING PERICARDIAL EFFUSION: SMALL AORTIC ROOT: NORMAL LEFT VENTRICULAR WALL MOTION: NORMAL DOPPLER/COLOR FLOW: IMPAIRED LEFT VENTRICULAR RELAXATION. NO AORTIC STENOSIS. COMMENTS: SMALL PERICARDIAL EFFUSION, NEW SINCE 06/23/18 STUDY. NO SIGNS OF TAMPONADE. NORMAL LEFT VENTRICULAR EJECTION FRACTION. AORTIC SCLEROSIS WITH NO AORTIC STENOSIS OR AORTIC REGURGITATION. IMPAIRED LEFT VENTRICULAR RELAXATION. TECHNOLOGIST: Meghna ODONNELL
--- NOTE | 2018-06-30 09:57 | RAD REPORT ---
EXAM DESCRIPTION: US - Abdomen Exam Complete - 06/30/2018 9:18 am CLINICAL HISTORY: Abdominal pain. LEUKOCYTOSIS, UNEXPLAINED. COMPARISON: Abdomen Exam Complete dated 01/22/2018 FINDINGS: The liver is normal in size, shape and echotexture. No focal liver lesions or intrahepatic biliary dilatation is seen. The gallbladder demonstrates no gallstones, pericholecystic fluid or gallbladder wall thickening. Co mmon bile duct is mildly prominent measuring 11 mm. Both kidneys are normal in size, shape and echotexture. No hydronephrosis, focal lesion of concern or perinephric fluid. The spleen is normal in size measuring 8 centimeters. The pancreas and aorta are obscured by bowel gas. The visualized aspects of the IVC are grossly normal. IMPRESSION: No acute intra-abdominal abnormality detected. Mildly prominent CBD measuring 11 mm. Consideration may be given to a follow-up MRCP examination for further workup.
[2018-06-30] MEDS: VENLAFAXINE HCL XR 75 MG CAP PO SCH (10:24)
[2018-06-30] MEDS: URSODIOL 300 MG CAP PO SCH ×2 (10:24→17:43)
[2018-06-30] MEDS: AMOXICILLIN TRIHYDR 250 MG CAP PO SCH ×2 (10:24→20:22)
[2018-06-30] MEDS: FUROSEMIDE 40 MG TABLET PO SCH (10:25)
[2018-06-30] MEDS: LOSARTAN POTASSIUM 50 MG TABLET PO SCH (10:25)
[2018-06-30] MEDS: AMLODIPINE 5 MG TAB PO SCH (10:25)
[2018-06-30] MEDS: APIXABAN 5 MG TABLET PO SCH ×2 (10:26→20:22)
--- NOTE | 2018-06-30 11:48 | PN ---
Ms. Pradhan remains in sinus rhythm. CAT scan show a small effusion while an echocardiogram 7 day s ago shows no effusion. We are going to repeat the echo to see if she is developing tamponade. She does not have clinical findings consistent with tamponade. She is dyspneic and quite uncomfortable and her x-rays do not show anything in particular that would explain it. The echo will be done and i nterpreted as soon as possible this morning and reported to Dr. Saldana. ROHITH/JEREMIAS Voice ID: [id number] Report ID: [id number]
--- NOTE | 2018-06-30 12:38 | RAD REPORT ---
EXAM DESCRIPTION: XR Chest, 1 View CLINICAL HISTORY: The patient is 82 years old and is Female; PICC Placement TECHNIQUE: Frontal view of the chest. COMPARISON: No relevant prior studies available. FINDINGS: LUNGS: Left lower lobe opacity is present. Chronic coarse interstitial markings are no leanne. PLEURAL SPACE: Unremarkable. No pneumothorax. HEART: The cardiac silhouette is enlarged. MEDIASTINUM: Unremarkable. BONES/JOINTS: Unremarkable. VASCULATURE: Atherosclerosis of the aorta is present. TUBES, LINES AND DEVICES: A right upper extremity PICC is present with the tip in the SVC. IMPRESSION: Left lower lobe opacity which may be secondary to atelectasis versus infiltrate. Electronically signed by: Esha Rios MD 06/30/2018 1:18 AM CDT Due to temporary technical issues with the PACS/Fluency reporting system, reports are being signed by the in house radiologist as a courtesy to ensure prompt reporting. The interpreting radiologist is f ully responsible for the content of the report.
[2018-06-30] MEDS: CODEINE 30MG/APAP 300MG TAB PO PRN ×2 (13:32→20:21)
--- NOTE | 2018-06-30 17:45 | P.PN ---
Subjective Date of Service: 06/30/18 Chief Complaint: Shortness of breath Subjective: Improving NAUSEA, VOMITING, STILL INTUBATED, TO BE TAPERED OFF TO EXTUBATE. REFUGIO IS ANXIOUS, INTUBATED IN AM BUT LATER WAS EXTUBATED BY DR. RESENDIZ. EXTUBATED, STILL VERY WEAK. DENIES CHEST PAIN. ABLE TO BREATH ON HER OWN. STILL WEAK, NOT ABLE TO TOLERATE ANY PT. SHE STAYS WEAK, NOT ABLE TO DO MUCH PT. MS. FOWLER WAS LOOKING GOOD FOR LAST 3 DAYS UNTIL THIS AM WHEN SHE LOOKED SLIGHTLY MORE DYSPNEIC AGAIN AND WBC COUNT WENT UP TO 23K. I ORDERED CT CHEST WITH CONTRAST- NEW FINDING IS THICKENED PERICARDIUM BUTAGAIN ECHO NEEDS TO BE DONE. UA UCS ARE [facility]ONE [facility]. CATH. SHE HAS NO UTI SYMPTOMS. BLOOD CULTURES ARE DONE. SHE IS SOME BETTER. BUT STILL VERY WEAK. NO CHEST PAIN OR COUGH. Review of Systems 10-point ROS is otherwise unremarkable General: Weakness, Malaise Respiratory: Shortness of Breath Physical Examination - Vital Signs Temperature: 98.2 F Blood Pressure: 144/6 Pulse: 74 Respirations: 20 Pulse Ox (%): 99 - Physical Exam General: Alert, Mild distress, Obese HEENT: Atraumatic, PERRLA, EOMI Neck: Supple, JVD not distended Respiratory: Diminished Cardiovascular: Regular rate/rhythm, Normal S1 S2 Gastrointestinal: Normal bowel sounds, No tenderness Musculoskeletal: No tenderness Integumentary: No rashes Neurological: Normal speech, Normal tone, Normal affect Lymphatics: No axilla or inguinal lymphadenopathy - Studies Medications List Reviewed: Yes Assessment And Plan - Current Problems (Diagnosis) (1) Respiratory failure Current Visit: Yes Status: Chronic Plan: SHE HAS SEVERE COPD. COMES BACK WITH HYPERCAPNEA AND INTUBATED STATUS DESPITE TREATMENT. FAMILY IS AWARE AND NOT WILLING TO LET HER SUFFER IN SUCH CONDITION FOR LONG. SON IS WORRIED ABOUT HER POOR QUALITY OF LIFE. I AGREE. RESUME SOLUMEDROL. NEBS EXTUBATION IN AM IF SHE IS AWAKE ENOUGH. RESUME LASIX SOLUMEDROL IV. NEBS EXTUBATE IF SAFE TODAY. STABLE. EXTUBATED TODAY. PROGNOSIS OVERALL POOR. COPD EXTUBATED NOW. STILL VERY FRAIL. ABG TODAY. REDUCE OXYGEN IF WE CAN TO 2 LT. RESUME BROVANA, AND OTHER NEBS. ABX CAN BE DEESCALATED. LETHARGIC. STAT ABG TODAY. STABLE. HYPOXIC BUT CONTROLLED WITH LOW GRADE OXYGEN. AVOID HYPERCAPNEA. CT SCAN SHOWS THAT PNEUMONIA HAS CLEARED WELL. THERE IS A NEW FINDING OF POSSIBLE PERICADIAL EFFUSION WITH THICKENING. I CALLED DR. FAULKNER AND HE ADVISED ECHO IT IS MORE ACCURATE FOR THIS ISSUE. I ALSO TALKED TO DR. RESENDIZ. I ADDED MERREM AUGMENTIN IS FAILING TO WORK. WILL ALSO ORDER SONOGRAM OF ABDOMEN. DC HAS BEEN DELAYED. I TALKED TO FAMILY MEMBERS AND ADVISED [facility]. SHE WILL NOT DO WELL. THEY ARE ASKING ABOUT HOSPICE. I ADVISED TO WAIT ABOUT 2 WEEKS AT [facility] WITH IV ABX AND THEN DECIDE. Qualifiers: Chronicity: acute on chronic Respiratory failure complication: hypercapnia Qualified Code(s): J96.22 - Acute and chronic respiratory failure with hypercapnia (2) Subendocardial [place] first episode care Current Visit: Yes Status: Acute Plan: THIS MAY BE FROM ACUTE STRAIN. MEDICAL MANAGEMENT. SHE IS NOT A CANDIDATE FOR ANY INVASIVE EVALUATION. (3) Atrial fibrillation, new onset Current Visit: No Status: Acute Plan: DIAGNOSED FIRST TIME LAST VISIT. RESUME BETAPACE AND ELIQUIS. DC LOVENOX GO BACK TO BETAPACE AND ELIQUIS. (4) Dehydration Current Visit: Yes Status: Acute Plan: REDUCE LASIX TO ORAL SMALLER DOSE. CHECK LAB DAILY. (5) [facility] resident Current Visit: Yes Status: Acute Plan: SONJA PEÑALOZA I ADVIED NH FOR LIFE TIME BUT SHE IS ADAMENT IN GOING HOME AFTER NH. SHE CARRIES POOR PROGNOSIS. (6) Leukocytosis Current Visit: Yes Status: Acute Plan: MS. FOWLER FLUCTUATES IN HER SYMPTOMS AND CONDITION. SHE FAILED TO RECOVER ON ZOSYN AND LATER AUGMENTIN. HER PNEUMONIA CLEARED BUT SHE GOT WORSE. HER WBC WENT UP. SHE HAS NO UTI SS. HER ECHO SHOWS INFLAMED PERICARDIUM BUT NOT MUCH WE CAN DO TO BIOPSY OR DRAIN IT HER CONDITION IS POOR ENOUGH NOT TOLERATE. HER PROCALCITONIN IS NORMAL BUT I STILL BELIEVE SHE IS SEPTIC FROM A CAUSE WE CAN'T CLEARLY IDENTIFY. SHE MAY HAVE SEPTIC PERICARDITIS FROM PROXIMITY OF PNEUMONIA OR MAY HAVE INFLAMMATORY PERICARDITIS BUT IT DOES NOT EXPLAIN WBC ELEVATION. ROLO SEPTICEMIA IS POSSIBLE BUT CULTURES HAVE BEEN NEGATIVE SO FAR. SONOGRAM IS NEGATIVE FOR ANY ACUTE ILLNESS. SHE HAS NO ABDOMEN SYMPTOMS AT ALL. I HAVE TALKED TO FAMILY AND THEY ARE LEANING TOWARDS HOSPICE BUT I SUGGESTED [facility] FOR TWO WEEKS BEFORE WE DO SO TO GIVE TIME FOR ABX O WORK IV. ON MERREM THE WBC HAS COME DOWN SOME.
[2018-06-30] MEDS ORDERED: ARFORMOTEROL TARTRATE 15 MCG/2 ML VIAL.NEB ONE (19:53)
[2018-06-30] MEDS: ARIPiprazole 5 MG TAB PO SCH (20:22)
[2018-06-30] MEDS: MIRTAZAPINE 15 MG TAB PO SCH (20:22)
[2018-07-01] MEDS: Meropenem 500 MG in NA CHLORIDE 0.9% 100 ML IV SCH ×3 (00:48→17:04)
[2018-07-01] MEDS: IPRATROPIUM BROM 0.5MG/2.5ML NEB SCH ×4 (01:30→20:12)
[2018-07-01] MEDS: ALBUTEROL 2.5 MG/3 ML NEB SOL NEB PRN (05:15)
[2018-07-01 05:38] LABS: Absolute Lymphocytes (CBC) 1.5 K/uL (0.7-4.9); Absolute Monocytes 1.8 K/uL (0.1-1.3); Absolute Neutrophil 16.3 K/uL (1.8-8.0); Basophils % 0.4 % (0-1.3); Eosinophils % 0.8 % (0-4.4); Hematocrit 37.4 % (36.0-45.0); Lymphocytes % 7.6 % (15.3-44.8); MPV 9.7 fL (7.6-11.3); Monocytes % 9.1 % (3.3-12.3); RBC Red Blood Cell Count 4.33 M/uL (3.86-4.86)
[2018-07-01 05:51] LABS: Potassium 4.1 mmol/L (3.5-5.1)
[2018-07-01] MEDS: SOTALOL HCL 80 MG TAB PO SCH ×2 (05:58→17:04)
[2018-07-01] MEDS: CODEINE 30MG/APAP 300MG TAB PO PRN ×3 (06:50→20:57)
[2018-07-01] MEDS: ARFORMOTEROL TARTRATE 15 MCG/2 ML VIAL.NEB NEB SCH ×2 (08:03→20:12)
[2018-07-01] MEDS: APIXABAN 5 MG TABLET PO SCH ×2 (09:57→20:58)
[2018-07-01] MEDS: URSODIOL 300 MG CAP PO SCH ×2 (09:57→17:04)
[2018-07-01] MEDS: FUROSEMIDE 40 MG TABLET PO SCH (09:57)
[2018-07-01] MEDS: AMOXICILLIN TRIHYDR 250 MG CAP PO SCH ×2 (09:57→20:58)
[2018-07-01] MEDS: VENLAFAXINE HCL XR 75 MG CAP PO SCH (09:58)
[2018-07-01] MEDS: LOSARTAN POTASSIUM 50 MG TABLET PO SCH (09:58)
[2018-07-01] MEDS: AMLODIPINE 5 MG TAB PO SCH (09:58)
--- NOTE | 2018-07-01 11:52 | RAD REPORT ---
EXAM DESCRIPTION: MRI - Brain W/Wo Cont - 07/01/2018 11:42 am CLINICAL HISTORY: Stroke-like symptoms, unresponsive, transient alteration of awareness COMPARISON: MRA head November 2016, CT head June 22 TECHNIQUE: Sagittal and axial T1-weighted images were obtained. Axial PD/heavily T2-weighted and T2- FLAIR images were obtained along with axial DWI/ADC mapping sequences. Coronal heavily T2 weighted s equence obtained. Axial and coronal post-contrast T1-weighted images were also obtained. A 17 ml Mul tihance contrast following utilized. FINDINGS: No intracranial hemorrhage, mass or acute infarction. There is no edema or shift of midli ne structures. No extra-axial fluid collections. Donovan-matter/white matter junction is preserved. Sig nal voids are seen as a normal finding in the major intracranial vessels. Moderate atrophy and chroni c ischemic changes are present. Ventricles are in proportion. No globe or orbital content abnormality. No sella or supra sella abnormality seen. Post-contrast images show normal enhancement. No dural thickening. Mastoid air cells and paranasal sinuses are clear. IMPRESSION: No acute infarction. No hemorrhage, mass or acute intracranial finding. Moderate atrophy and chronic ischemic change.
--- NOTE | 2018-07-01 11:59 | RAD REPORT ---
EXAM DESCRIPTION: MRI - MRA Neck W/Wo Cont - 07/01/2018 11:40 am CLINICAL HISTORY: syncope/weakness COMPARISON: None. TECHNIQUE: Magnetic resonance angiogram of the neck was performed. 19 cc MultiHance was administered intravenously. 3D MIPS reconstruction performed FINDINGS: Mild plaque is present within the common, internal and external carotid arteries. . An ane urysm is not seen. The vertebral arteries are codominant without visualization of an abnormality. IMPRESSION: Mild plaque inf the carotid arteries NASCET criteria used. Mild 0-49% stenosis Moderate 50-69% stenosis Severe 70-99% stenosis
--- NOTE | 2018-07-01 11:59 | RAD REPORT ---
EXAM DESCRIPTION: MRI - MRA Head Wo Cont - 07/01/2018 11:40 am CLINICAL HISTORY: Syncope /weakness COMPARISON: None. TECHNIQUE: Magnetic resonance angiogram was performed. 3D MIPS reconstruction performed FINDINGS: The anterior cerebral, middle cerebral, posterior cerebral, distal internal carotid and ba silar arteries do not demonstrate a significant stenosis. An aneurysm is not displayed. IMPRESSION: Unremarkable MRA brain.
[2018-07-01] MEDS: predniSONE 20 MG TAB PO SCH ×2 (13:12→20:58)
--- NOTE | 2018-07-01 16:56 | P.PN ---
Subjective Date of Service: 07/01/18 Chief Complaint: WEAK, FATIGUED Subjective: Improving NAUSEA, VOMITING, STILL INTUBATED, TO BE TAPERED OFF TO EXTUBATE. REFUGIO IS ANXIOUS, INTUBATED IN AM BUT LATER WAS EXTUBATED BY DR. RESENDIZ. EXTUBATED, STILL VERY WEAK. DENIES CHEST PAIN. ABLE TO BREATH ON HER OWN. STILL WEAK, NOT ABLE TO TOLERATE ANY PT. SHE STAYS WEAK, NOT ABLE TO DO MUCH PT. MS. FOWLER WAS LOOKING GOOD FOR LAST 3 DAYS UNTIL THIS AM WHEN SHE LOOKED SLIGHTLY MORE DYSPNEIC AGAIN AND WBC COUNT WENT UP TO 23K. I ORDERED CT CHEST WITH CONTRAST- NEW FINDING IS THICKENED PERICARDIUM BUTAGAIN ECHO NEEDS TO BE DONE. UA UCS ARE [facility]ONE ST. CATH. SHE HAS NO UTI SYMPTOMS. BLOOD CULTURES ARE DONE. SHE IS SOME BETTER. BUT STILL VERY WEAK. NO CHEST PAIN OR COUGH. SHE IS ABOUT THE SAME. SHE IS WEAK, DYSPNEIC AT REST AND NOT ABLE TO DO PT. Review of Systems 10-point ROS is otherwise unremarkable General: Weakness, Malaise Respiratory: Shortness of Breath, As per HPI Physical Examination - Vital Signs Temperature: 97.6 F Blood Pressure: 127/59 Pulse: 78 Respirations: 17 Pulse Ox (%): 95 - Physical Exam General: Alert, Mild distress, Moderate distress HEENT: Atraumatic, PERRLA, EOMI Neck: Supple, JVD not distended Respiratory: Diminished Cardiovascular: Regular rate/rhythm, Normal S1 S2 Gastrointestinal: Normal bowel sounds, No tenderness Musculoskeletal: No tenderness Integumentary: No rashes Neurological: Normal speech, Normal tone, Normal affect Lymphatics: No axilla or inguinal lymphadenopathy - Studies Medications List Reviewed: Yes Assessment And Plan - Current Problems (Diagnosis) (1) Respiratory failure Current Visit: Yes Status: Chronic Plan: SHE HAS SEVERE COPD. COMES BACK WITH HYPERCAPNEA AND INTUBATED STATUS DESPITE TREATMENT. FAMILY IS AWARE AND NOT WILLING TO LET HER SUFFER IN SUCH CONDITION FOR LONG. SON IS WORRIED ABOUT HER POOR QUALITY OF LIFE. I AGREE. RESUME SOLUMEDROL. NEBS EXTUBATION IN AM IF SHE IS AWAKE ENOUGH. RESUME LASIX SOLUMEDROL IV. NEBS EXTUBATE IF SAFE TODAY. STABLE. EXTUBATED TODAY. PROGNOSIS OVERALL POOR. COPD EXTUBATED NOW. STILL VERY FRAIL. ABG TODAY. REDUCE OXYGEN IF WE CAN TO 2 LT. RESUME BROVANA, AND OTHER NEBS. ABX CAN BE DEESCALATED. LETHARGIC. STAT ABG TODAY. STABLE. HYPOXIC BUT CONTROLLED WITH LOW GRADE OXYGEN. AVOID HYPERCAPNEA. CT SCAN SHOWS THAT PNEUMONIA HAS CLEARED WELL. THERE IS A NEW FINDING OF POSSIBLE PERICADIAL EFFUSION WITH THICKENING. I CALLED DR. FAULKNER AND HE ADVISED ECHO IT IS MORE ACCURATE FOR THIS ISSUE. I ALSO TALKED TO DR. RESENDIZ. I ADDED MERREM AUGMENTIN IS FAILING TO WORK. WILL ALSO ORDER SONOGRAM OF ABDOMEN. DC HAS BEEN DELAYED. I TALKED TO FAMILY MEMBERS AND ADVISED [facility]. SHE WILL NOT DO WELL. THEY ARE ASKING ABOUT HOSPICE. I ADVISED TO WAIT ABOUT 2 WEEKS AT [facility] WITH IV ABX AND THEN DECIDE. SHE REFUSES TO GO TO [facility]. Qualifiers: Chronicity: acute on chronic Respiratory failure complication: hypercapnia Qualified Code(s): J96.22 - Acute and chronic respiratory failure with hypercapnia (2) Subendocardial [place] first episode care Current Visit: Yes Status: Acute Plan: THIS MAY BE FROM ACUTE STRAIN. MEDICAL MANAGEMENT. SHE IS NOT A CANDIDATE FOR ANY INVASIVE EVALUATION. (3) Atrial fibrillation, new onset Current Visit: No Status: Acute Plan: DIAGNOSED FIRST TIME LAST VISIT. RESUME BETAPACE AND ELIQUIS. DC LOVENOX GO BACK TO BETAPACE AND ELIQUIS. (4) Dehydration Current Visit: Yes Status: Acute Plan: REDUCE LASIX TO ORAL SMALLER DOSE. CHECK LAB DAILY. (5) [facility] resident Current Visit: Yes Status: Acute Plan: SONJA POLLOCK.Juan Antonio I ADVIED NH FOR LIFE TIME BUT SHE IS ADAMENT IN GOING HOME AFTER NH. SHE CARRIES POOR PROGNOSIS. (6) Leukocytosis Current Visit: Yes Status: Acute Plan: MS. FOWLER FLUCTUATES IN HER SYMPTOMS AND CONDITION. SHE FAILED TO RECOVER ON ZOSYN AND LATER AUGMENTIN. HER PNEUMONIA CLEARED BUT SHE GOT WORSE. HER WBC WENT UP. SHE HAS NO UTI SS. HER ECHO SHOWS INFLAMED PERICARDIUM BUT NOT MUCH WE CAN DO TO BIOPSY OR DRAIN IT HER CONDITION IS POOR ENOUGH NOT TOLERATE. HER PROCALCITONIN IS NORMAL BUT I STILL BELIEVE SHE IS SEPTIC FROM A CAUSE WE CAN'T CLEARLY IDENTIFY. SHE MAY HAVE SEPTIC PERICARDITIS FROM PROXIMITY OF PNEUMONIA OR MAY HAVE INFLAMMATORY PERICARDITIS BUT IT DOES NOT EXPLAIN WBC ELEVATION. ROLO SEPTICEMIA IS POSSIBLE BUT CULTURES HAVE BEEN NEGATIVE SO FAR. SONOGRAM IS NEGATIVE FOR ANY ACUTE ILLNESS. SHE HAS NO ABDOMEN SYMPTOMS AT ALL. I HAVE TALKED TO FAMILY AND THEY ARE LEANING TOWARDS HOSPICE BUT I SUGGESTED [facility] FOR TWO WEEKS BEFORE WE DO SO TO GIVE TIME FOR ABX O WORK IV. ON MERREM THE WBC HAS COME DOWN SOME. (7) Pericarditis Current Visit: Yes Status: Acute Plan: THIS CAN BE THE REASON WHY WBC COUNT RAISED. SHE HAD PNEUMONIA AND NOW THE INFECTION CAN LODGE IN PERICARDIUM SHE IN A VERY POOR STAGE FOR ANY SURGICAL OPTION. FAMILY UNDERSTANDS AND SHE UNDERSTANDS. SHE IS OPEN TO HOSPICE FOR COPD. I ADVISED TO FINISH ANTIBIOTICS FOR 2 WEEKS AND THEN THINK ABOUT HOSPICE IF NOT BETTER. Qualifiers: Pericarditis type: infectious Infectious pericarditis etiology: unspecified Chronicity: acute Qualified Code(s): I30.1 - Infective pericarditis
[2018-07-01] MEDS: ARIPiprazole 5 MG TAB PO SCH (20:58)
[2018-07-01] MEDS: MIRTAZAPINE 15 MG TAB PO SCH (20:58)
[2018-07-02] MEDS: Meropenem 500 MG in NA CHLORIDE 0.9% 100 ML IV SCH ×3 (00:23→17:41)
[2018-07-02] MEDS: IPRATROPIUM BROM 0.5MG/2.5ML NEB SCH ×4 (01:15→20:15)
[2018-07-02] MEDS: CODEINE 30MG/APAP 300MG TAB PO PRN ×2 (04:59→20:45)
[2018-07-02] MEDS: SOTALOL HCL 80 MG TAB PO SCH ×2 (05:00→17:40)
[2018-07-02 05:51] LABS: Absolute Lymphocytes (CBC) 0.7 K/uL (0.7-4.9); Absolute Monocytes 0.3 K/uL (0.1-1.3); Absolute Neutrophil 14.4 K/uL (1.8-8.0); Basophils % 0.3 % (0-1.3); Hematocrit 32.6 % (36.0-45.0); Lymphocytes % 4.5 % (15.3-44.8); MPV 9.3 fL (7.6-11.3); Monocytes % 2.2 % (3.3-12.3)
[2018-07-02 06:02] LABS: Potassium 4.5 mmol/L (3.5-5.1)
[2018-07-02 07:55] LABS: Magnesium 2.5 mg/dL (1.8-2.4)
[2018-07-02] MEDS: predniSONE 20 MG TAB PO SCH ×2 (08:59→20:46)
[2018-07-02] MEDS: AMOXICILLIN TRIHYDR 250 MG CAP PO SCH ×2 (08:59→20:45)
[2018-07-02] MEDS: URSODIOL 300 MG CAP PO SCH ×2 (08:59→17:40)
[2018-07-02] MEDS: LOSARTAN POTASSIUM 50 MG TABLET PO SCH (08:59)
[2018-07-02] MEDS: VENLAFAXINE HCL XR 75 MG CAP PO SCH (08:59)
[2018-07-02] MEDS: FUROSEMIDE 40 MG TABLET PO SCH (09:00)
[2018-07-02] MEDS: APIXABAN 5 MG TABLET PO SCH ×2 (09:00→20:45)
[2018-07-02] MEDS: AMLODIPINE 5 MG TAB PO SCH (09:00)
[2018-07-02] MEDS: ARFORMOTEROL TARTRATE 15 MCG/2 ML VIAL.NEB NEB SCH ×2 (09:47→20:15)
--- NOTE | 2018-07-02 10:54 | P.PN ---
Subjective Date of Service: 07/02/18 Chief Complaint: WEAK, FATIGUED Subjective: Improving NAUSEA, VOMITING, STILL INTUBATED, TO BE TAPERED OFF TO EXTUBATE. REFUGIO IS ANXIOUS, INTUBATED IN AM BUT LATER WAS EXTUBATED BY DR. RESENDIZ. EXTUBATED, STILL VERY WEAK. DENIES CHEST PAIN. ABLE TO BREATH ON HER OWN. STILL WEAK, NOT ABLE TO TOLERATE ANY PT. SHE STAYS WEAK, NOT ABLE TO DO MUCH PT. MS. FOWLER WAS LOOKING GOOD FOR LAST 3 DAYS UNTIL THIS AM WHEN SHE LOOKED SLIGHTLY MORE DYSPNEIC AGAIN AND WBC COUNT WENT UP TO 23K. I ORDERED CT CHEST WITH CONTRAST- NEW FINDING IS THICKENED PERICARDIUM BUTAGAIN ECHO NEEDS TO BE DONE. UA UCS ARE [facility]ONE ST. CATH. SHE HAS NO UTI SYMPTOMS. BLOOD CULTURES ARE DONE. SHE IS SOME BETTER. BUT STILL VERY WEAK. NO CHEST PAIN OR COUGH. SHE IS ABOUT THE SAME. SHE IS WEAK, DYSPNEIC AT REST AND NOT ABLE TO DO PT. STILL STAYS VERY FATIGUED AND SOME DYSPNEA AT REST. SHE HAS NO NEW SYMPTOM. Review of Systems 10-point ROS is otherwise unremarkable General: Weakness, Malaise Respiratory: Shortness of Breath Physical Examination - Vital Signs Temperature: 97.2 F Blood Pressure: 114/58 Pulse: 72 Respirations: 20 Pulse Ox (%): 97 - Physical Exam General: Alert, Mild distress, Obese HEENT: Atraumatic, PERRLA, EOMI Neck: Supple, JVD not distended Respiratory: Diminished Cardiovascular: Regular rate/rhythm, Normal S1 S2, Edema Gastrointestinal: Normal bowel sounds, No tenderness Musculoskeletal: No tenderness Integumentary: No rashes Neurological: Normal speech, Normal tone, Normal affect Lymphatics: No axilla or inguinal lymphadenopathy - Studies Medications List Reviewed: Yes Assessment And Plan - Current Problems (Diagnosis) (1) Respiratory failure Current Visit: Yes Status: Chronic Plan: SHE HAS SEVERE COPD. COMES BACK WITH HYPERCAPNEA AND INTUBATED STATUS DESPITE TREATMENT. FAMILY IS AWARE AND NOT WILLING TO LET HER SUFFER IN SUCH CONDITION FOR LONG. SON IS WORRIED ABOUT HER POOR QUALITY OF LIFE. I AGREE. RESUME SOLUMEDROL. NEBS EXTUBATION IN AM IF SHE IS AWAKE ENOUGH. RESUME LASIX SOLUMEDROL IV. NEBS EXTUBATE IF SAFE TODAY. STABLE. EXTUBATED TODAY. PROGNOSIS OVERALL POOR. COPD EXTUBATED NOW. STILL VERY FRAIL. ABG TODAY. REDUCE OXYGEN IF WE CAN TO 2 LT. RESUME BROVANA, AND OTHER NEBS. ABX CAN BE DEESCALATED. LETHARGIC. STAT ABG TODAY. STABLE. HYPOXIC BUT CONTROLLED WITH LOW GRADE OXYGEN. AVOID HYPERCAPNEA. CT SCAN SHOWS THAT PNEUMONIA HAS CLEARED WELL. THERE IS A NEW FINDING OF POSSIBLE PERICADIAL EFFUSION WITH THICKENING. I CALLED DR. FAULKNER AND HE ADVISED ECHO IT IS MORE ACCURATE FOR THIS ISSUE. I ALSO TALKED TO DR. RESENDIZ. I ADDED MERREM AUGMENTIN IS FAILING TO WORK. WILL ALSO ORDER SONOGRAM OF ABDOMEN. DC HAS BEEN DELAYED. I TALKED TO FAMILY MEMBERS AND ADVISED [facility]. SHE WILL NOT DO WELL. THEY ARE ASKING ABOUT HOSPICE. I ADVISED TO WAIT ABOUT 2 WEEKS AT [facility] WITH IV ABX AND THEN DECIDE. SHE REFUSES TO GO TO [facility]. DAUGHTER IN LAW CONFIRMED THAT IN THE NH WHEN SHE REACHED SHE VOMITED AND ASPIRATED , THAT BROUGHT HER BACK TO HOSPITAL. Qualifiers: Chronicity: acute on chronic Respiratory failure complication: hypercapnia Qualified Code(s): J96.22 - Acute and chronic respiratory failure with hypercapnia (2) Subendocardial [place] first episode care Current Visit: Yes Status: Acute Plan: THIS MAY BE FROM ACUTE STRAIN. MEDICAL MANAGEMENT. SHE IS NOT A CANDIDATE FOR ANY INVASIVE EVALUATION. (3) Atrial fibrillation, new onset Current Visit: No Status: Acute Plan: DIAGNOSED FIRST TIME LAST VISIT. RESUME BETAPACE AND ELIQUIS. DC LOVENOX GO BACK TO BETAPACE AND ELIQUIS. (4) Dehydration Current Visit: Yes Status: Acute Plan: REDUCE LASIX TO ORAL SMALLER DOSE. CHECK LAB DAILY. (5) care home resident Current Visit: Yes Status: Acute Plan: SON PHILL.Juan Antonio I ADVIED NH FOR LIFE TIME BUT SHE IS ADAMENT IN GOING HOME AFTER NH. SHE CARRIES POOR PROGNOSIS. (6) Leukocytosis Current Visit: Yes Status: Acute Plan: MS. FOWLER FLUCTUATES IN HER SYMPTOMS AND CONDITION. SHE FAILED TO RECOVER ON ZOSYN AND LATER AUGMENTIN. HER PNEUMONIA CLEARED BUT SHE GOT WORSE. HER WBC WENT UP. SHE HAS NO UTI SS. HER ECHO SHOWS INFLAMED PERICARDIUM BUT NOT MUCH WE CAN DO TO BIOPSY OR DRAIN IT HER CONDITION IS POOR ENOUGH NOT TOLERATE. HER PROCALCITONIN IS NORMAL BUT I STILL BELIEVE SHE IS SEPTIC FROM A CAUSE WE CAN'T CLEARLY IDENTIFY. SHE MAY HAVE SEPTIC PERICARDITIS FROM PROXIMITY OF PNEUMONIA OR MAY HAVE INFLAMMATORY PERICARDITIS BUT IT DOES NOT EXPLAIN WBC ELEVATION. ROLO SEPTICEMIA IS POSSIBLE BUT CULTURES HAVE BEEN NEGATIVE SO FAR. SONOGRAM IS NEGATIVE FOR ANY ACUTE ILLNESS. SHE HAS NO ABDOMEN SYMPTOMS AT ALL. I HAVE TALKED TO FAMILY AND THEY ARE LEANING TOWARDS HOSPICE BUT I SUGGESTED [facility] FOR TWO WEEKS BEFORE WE DO SO TO GIVE TIME FOR ABX O WORK IV. ON MERREM THE WBC HAS COME DOWN SOME. (7) Pericarditis Current Visit: Yes Status: Acute Plan: THIS CAN BE THE REASON WHY WBC COUNT RAISED. SHE HAD PNEUMONIA AND NOW THE INFECTION CAN LODGE IN PERICARDIUM SHE IN A VERY POOR STAGE FOR ANY SURGICAL OPTION. FAMILY UNDERSTANDS AND SHE UNDERSTANDS. SHE IS OPEN TO HOSPICE FOR COPD. I ADVISED TO FINISH ANTIBIOTICS FOR 2 WEEKS AND THEN THINK ABOUT HOSPICE IF NOT BETTER. I THINK SHE HAS SEPTIC PERICARDITIS. THERE IS NO OTHER SOURCE OF INFECTION SO FAR. HER PNEUMONIA HAS CLEARED, HER FOUR BLOOD CULTURES HAVE BEEN NEGATIVE , EVEN FOR ROLO, HER SECOND URINE CULTURE IS NEGATIVE. SHE IS IMPROVING WITH WBC DOWN TO 15K ONLY AFTER ADDITION OF MERREM AND SO I THINK SHE SHOULD CONTIUE THAT FOR 2 WEEKS AT [place]. Qualifiers: Pericarditis type: infectious Infectious pericarditis etiology: unspecified Chronicity: acute Qualified Code(s): I30.1 - Infective pericarditis
--- NOTE | 2018-07-02 11:11 | P.PN ---
Subjective Date of Service: 07/02/18 Chief Complaint: Shortness of breath severe COPD Patient is doing much better shortness of breath has improved he has severe COPD is on home oxygen and takes anoro Review of Systems General: Weakness Respiratory: Shortness of Breath Physical Examination - Vital Signs Temperature: 97.2 F Blood Pressure: 114/58 Pulse: 72 Respirations: 20 Pulse Ox (%): 97 - Physical Exam General: Alert, Oriented x3 Respiratory: Clear to auscultation bilaterally, Diminished Cardiovascular: No edema, Regular rate/rhythm, Normal S1 S2 Gastrointestinal: Normal bowel sounds, Soft and benign - Studies Medications List Reviewed: Yes Assessment & Plan - Problems (Diagnosis) (1) Respiratory failure Current Visit: Yes Status: Acute Plan: I strongly suspect patient has underlying severe COPD admitted with an exacerbation white count is declining urine culture shows mixed ranjith continue with steroids bronchodilators scheduled to go to a senior living patient is hypoxic hypercapnic brain scans are unremarkable there is no evidence of sepsis I think meropenem can be stopped patient takes the no role I would think it can be upgraded to trilogy and use a nebulized bronchodilators at home in addition to low-dose prednisone 10 mg once a day is to follow up with me as an out Qualifiers: Chronicity: acute on chronic
[2018-07-02 14:26] LABS: Arterial Blood Carboxyhemoglob 1.4 % (0-1.5); Blood Gas Oxyhemoglobin 87.8 % (94-97); Blood O2 Saturation 89.4 % (92-98.5)
[2018-07-02] MEDS ORDERED: ARFORMOTEROL TARTRATE 15 MCG/2 ML VIAL.NEB ONE (20:10)
[2018-07-02] MEDS: MIRTAZAPINE 15 MG TAB PO SCH (20:46)
[2018-07-02] MEDS: ARIPiprazole 5 MG TAB PO SCH (20:46)
[2018-07-03] MEDS: Meropenem 500 MG in NA CHLORIDE 0.9% 100 ML IV SCH ×3 (00:13→17:10)
[2018-07-03] MEDS: IPRATROPIUM BROM 0.5MG/2.5ML NEB SCH ×4 (01:15→19:38)
[2018-07-03 05:18] LABS: Absolute Lymphocytes (CBC) 0.7 K/uL (0.7-4.9); Absolute Monocytes 0.4 K/uL (0.1-1.3); Absolute Neutrophil 16.6 K/uL (1.8-8.0); Basophils % 0.1 % (0-1.3); Hematocrit 31.5 % (36.0-45.0); Lymphocytes % 4.2 % (15.3-44.8); MPV 9.3 fL (7.6-11.3); Monocytes % 2.5 % (3.3-12.3); RBC Red Blood Cell Count 3.66 M/uL (3.86-4.86)
[2018-07-03] MEDS: SOTALOL HCL 80 MG TAB PO SCH ×2 (05:20→17:10)
[2018-07-03 05:22] LABS: Potassium 4.5 mmol/L (3.5-5.1)
[2018-07-03 06:56] LABS: Blood Morphology Comment NOT SEEN (NOT SEEN); Platelet Estimate INCR; Platelets, Giant MANY
[2018-07-03] MEDS: ARFORMOTEROL TARTRATE 15 MCG/2 ML VIAL.NEB NEB SCH ×2 (08:40→19:38)
[2018-07-03] MEDS: predniSONE 20 MG TAB PO SCH (09:02)
[2018-07-03] MEDS: AMOXICILLIN TRIHYDR 250 MG CAP PO SCH ×2 (09:02→21:41)
[2018-07-03] MEDS: URSODIOL 300 MG CAP PO SCH ×2 (09:02→17:10)
[2018-07-03] MEDS: APIXABAN 5 MG TABLET PO SCH ×2 (09:02→21:41)
[2018-07-03] MEDS: VENLAFAXINE HCL XR 75 MG CAP PO SCH (09:02)
[2018-07-03] MEDS: FUROSEMIDE 40 MG TABLET PO SCH (09:02)
[2018-07-03] MEDS: AMLODIPINE 5 MG TAB PO SCH (09:03)
[2018-07-03] MEDS: LOSARTAN POTASSIUM 50 MG TABLET PO SCH (09:03)
--- NOTE | 2018-07-03 11:13 | P.PN ---
Subjective Date of Service: 07/03/18 Chief Complaint: Shortness of breath severe COPD Subjective: Improving NAUSEA, VOMITING, STILL INTUBATED, TO BE TAPERED OFF TO EXTUBATE. REFUGIO IS ANXIOUS, INTUBATED IN AM BUT LATER WAS EXTUBATED BY DR. RESENDIZ. EXTUBATED, STILL VERY WEAK. DENIES CHEST PAIN. ABLE TO BREATH ON HER OWN. STILL WEAK, NOT ABLE TO TOLERATE ANY PT. SHE STAYS WEAK, NOT ABLE TO DO MUCH PT. MS. FOWLER WAS LOOKING GOOD FOR LAST 3 DAYS UNTIL THIS AM WHEN SHE LOOKED SLIGHTLY MORE DYSPNEIC AGAIN AND WBC COUNT WENT UP TO 23K. I ORDERED CT CHEST WITH CONTRAST- NEW FINDING IS THICKENED PERICARDIUM BUTAGAIN ECHO NEEDS TO BE DONE. UA UCS ARE [facility]ONE ST. CATH. SHE HAS NO UTI SYMPTOMS. BLOOD CULTURES ARE DONE. SHE IS SOME BETTER. BUT STILL VERY WEAK. NO CHEST PAIN OR COUGH. SHE IS ABOUT THE SAME. SHE IS WEAK, DYSPNEIC AT REST AND NOT ABLE TO DO PT. STILL STAYS VERY FATIGUED AND SOME DYSPNEA AT REST. SHE HAS NO NEW SYMPTOM. PATIENT FEELS BETTER ,STILL QUITE WEAK AND NOT ABLE TO DO PT. Review of Systems 10-point ROS is otherwise unremarkable General: Weakness, Malaise Respiratory: As per HPI Physical Examination - Vital Signs Temperature: 97.9 F Blood Pressure: 135/70 Pulse: 77 Respirations: 19 Pulse Ox (%): 93 - Physical Exam General: Alert, Oriented x3, Mild distress, Obese HEENT: Atraumatic, PERRLA, EOMI Neck: Supple, JVD not distended Respiratory: Clear to auscultation bilaterally, Normal air movement Cardiovascular: Regular rate/rhythm, Normal S1 S2 Gastrointestinal: Normal bowel sounds, No tenderness Musculoskeletal: No tenderness Integumentary: No rashes Neurological: Normal speech, Normal tone, Normal affect Lymphatics: No axilla or inguinal lymphadenopathy - Studies Medications List Reviewed: Yes Assessment And Plan - Current Problems (Diagnosis) (1) Respiratory failure Current Visit: Yes Status: Chronic Plan: SHE HAS SEVERE COPD. COMES BACK WITH HYPERCAPNEA AND INTUBATED STATUS DESPITE TREATMENT. FAMILY IS AWARE AND NOT WILLING TO LET HER SUFFER IN SUCH CONDITION FOR LONG. SON IS WORRIED ABOUT HER POOR QUALITY OF LIFE. I AGREE. RESUME SOLUMEDROL. NEBS EXTUBATION IN AM IF SHE IS AWAKE ENOUGH. RESUME LASIX SOLUMEDROL IV. NEBS EXTUBATE IF SAFE TODAY. STABLE. EXTUBATED TODAY. PROGNOSIS OVERALL POOR. COPD EXTUBATED NOW. STILL VERY FRAIL. ABG TODAY. REDUCE OXYGEN IF WE CAN TO 2 LT. RESUME BROVANA, AND OTHER NEBS. ABX CAN BE DEESCALATED. LETHARGIC. STAT ABG TODAY. STABLE. HYPOXIC BUT CONTROLLED WITH LOW GRADE OXYGEN. AVOID HYPERCAPNEA. CT SCAN SHOWS THAT PNEUMONIA HAS CLEARED WELL. THERE IS A NEW FINDING OF POSSIBLE PERICADIAL EFFUSION WITH THICKENING. I CALLED DR. FAULKNER AND HE ADVISED ECHO IT IS MORE ACCURATE FOR THIS ISSUE. I ALSO TALKED TO DR. RESENDIZ. I ADDED MERREM AUGMENTIN IS FAILING TO WORK. WILL ALSO ORDER SONOGRAM OF ABDOMEN. DC HAS BEEN DELAYED. I TALKED TO FAMILY MEMBERS AND ADVISED [facility]. SHE WILL NOT DO WELL. THEY ARE ASKING ABOUT HOSPICE. I ADVISED TO WAIT ABOUT 2 WEEKS AT [facility] WITH IV ABX AND THEN DECIDE. SHE REFUSES TO GO TO [facility]. DAUGHTER IN LAW CONFIRMED THAT IN THE NH WHEN SHE REACHED SHE VOMITED AND ASPIRATED , THAT BROUGHT HER BACK TO HOSPITAL. Qualifiers: Chronicity: acute on chronic Respiratory failure complication: hypercapnia Qualified Code(s): J96.22 - Acute and chronic respiratory failure with hypercapnia (2) Subendocardial [place] first episode care Current Visit: Yes Status: Acute Plan: THIS MAY BE FROM ACUTE STRAIN. MEDICAL MANAGEMENT. SHE IS NOT A CANDIDATE FOR ANY INVASIVE EVALUATION. (3) Atrial fibrillation, new onset Current Visit: No Status: Acute Plan: DIAGNOSED FIRST TIME LAST VISIT. RESUME BETAPACE AND ELIQUIS. DC LOVENOX GO BACK TO BETAPACE AND ELIQUIS. (4) Dehydration Current Visit: Yes Status: Acute Plan: REDUCE LASIX TO ORAL SMALLER DOSE. CHECK LAB DAILY. (5) alf resident Current Visit: Yes Status: Acute Plan: SON PHILL.Juan Antonio I ADVIED NH FOR LIFE TIME BUT SHE IS ADAMENT IN GOING HOME AFTER NH. SHE CARRIES POOR PROGNOSIS. (6) Leukocytosis Current Visit: Yes Status: Acute Plan: MS. FOWLER FLUCTUATES IN HER SYMPTOMS AND CONDITION. SHE FAILED TO RECOVER ON ZOSYN AND LATER AUGMENTIN. HER PNEUMONIA CLEARED BUT SHE GOT WORSE. HER WBC WENT UP. SHE HAS NO UTI SS. HER ECHO SHOWS INFLAMED PERICARDIUM BUT NOT MUCH WE CAN DO TO BIOPSY OR DRAIN IT HER CONDITION IS POOR ENOUGH NOT TOLERATE. HER PROCALCITONIN IS NORMAL BUT I STILL BELIEVE SHE IS SEPTIC FROM A CAUSE WE CAN'T CLEARLY IDENTIFY. SHE MAY HAVE SEPTIC PERICARDITIS FROM PROXIMITY OF PNEUMONIA OR MAY HAVE INFLAMMATORY PERICARDITIS BUT IT DOES NOT EXPLAIN WBC ELEVATION. ROLO SEPTICEMIA IS POSSIBLE BUT CULTURES HAVE BEEN NEGATIVE SO FAR. SONOGRAM IS NEGATIVE FOR ANY ACUTE ILLNESS. SHE HAS NO ABDOMEN SYMPTOMS AT ALL. I HAVE TALKED TO FAMILY AND THEY ARE LEANING TOWARDS HOSPICE BUT I SUGGESTED [facility] FOR TWO WEEKS BEFORE WE DO SO TO GIVE TIME FOR ABX O WORK IV. ON MERREM THE WBC HAS COME DOWN SOME. (7) Pericarditis Current Visit: Yes Status: Acute Plan: THIS CAN BE THE REASON WHY WBC COUNT RAISED. SHE HAD PNEUMONIA AND NOW THE INFECTION CAN LODGE IN PERICARDIUM SHE IN A VERY POOR STAGE FOR ANY SURGICAL OPTION. FAMILY UNDERSTANDS AND SHE UNDERSTANDS. SHE IS OPEN TO HOSPICE FOR COPD. I ADVISED TO FINISH ANTIBIOTICS FOR 2 WEEKS AND THEN THINK ABOUT HOSPICE IF NOT BETTER. I THINK SHE HAS SEPTIC PERICARDITIS. THERE IS NO OTHER SOURCE OF INFECTION SO FAR. HER PNEUMONIA HAS CLEARED, HER FOUR BLOOD CULTURES HAVE BEEN NEGATIVE , EVEN FOR ROLO, HER SECOND URINE CULTURE IS NEGATIVE. SHE IS IMPROVING WITH WBC DOWN TO 15K ONLY AFTER ADDITION OF MERREM AND SO I THINK SHE SHOULD CONTINUE THAT FOR 2 WEEKS AT [place]. WILL DC IN AM, SHE IS STABLE FOR NOW. Qualifiers: Pericarditis type: infectious Infectious pericarditis etiology: unspecified Chronicity: acute Qualified Code(s): I30.1 - Infective pericarditis
[2018-07-03] MEDS: CODEINE 30MG/APAP 300MG TAB PO PRN ×2 (15:15→21:42)
[2018-07-03] MEDS: ARIPiprazole 5 MG TAB PO SCH (21:41)
[2018-07-03] MEDS: MIRTAZAPINE 15 MG TAB PO SCH (21:41)
--- NOTE | 2018-07-03 23:24 | PN ---
Date of Progress Note: 07/02/2018 The patient was admitted to Dr. Saldana on 06/22/2018. The last time she was seen by Dr. Hoffman was because of possible pericardial effusion by CT scan of the chest. Echocardiogram showed sma ll pericardial effusion, no tamponade. The patient has a history of atrial fibrillation, but she is in sinus rhythm. She is asymptomatic and hemodynamically uncompromised. She is on Betapace and Eliq uis. No cardiac issues going on otherwise. There [facility] I agree with her present regimen. We would like to see her in the office in the next 2 to 4 week jw LEAHY/JEREMIAS Voice ID: [id number] Report ID: [id number]
[2018-07-04] MEDS: Meropenem 500 MG in NA CHLORIDE 0.9% 100 ML IV SCH ×3 (00:23→16:50)
[2018-07-04] MEDS: IPRATROPIUM BROM 0.5MG/2.5ML NEB SCH ×4 (01:35→20:00)
[2018-07-04] MEDS: SOTALOL HCL 80 MG TAB PO SCH ×3 (04:02→17:30)
[2018-07-04 08:17] LABS: Absolute Lymphocytes (CBC) 1.6 K/uL (0.7-4.9); Absolute Neutrophil 15.3 K/uL (1.8-8.0); Basophils % 0.5 % (0-1.3); Eosinophils % 0.1 % (0-4.4); Hematocrit 35.1 % (36.0-45.0); Lymphocytes % 8.7 % (15.3-44.8); Monocytes % 5.7 % (3.3-12.3); RBC Red Blood Cell Count 4.05 M/uL (3.86-4.86)
--- NOTE | 2018-07-04 08:17 | RAD REPORT ---
EXAM DESCRIPTION: NM - Hepatobiliary System W/ Ph - 07/04/2018 8:01 am CLINICAL HISTORY: elevated WBC? Abdominal pain COMPARISON: No comparisons TECHNIQUE: The patient was administered 6.3 mCi Tc99m Choletec. Imaging of the right upper quadrant was performed initially for up to 60 minutes. Gallbladder ejection fraction determination was then performed utilizing synthetic 1.5 mgm CCK over a slow 30 minute infusion. FINDINGS: Normal hepatic uptake and excretion with appropriate clearance of background blood pool ac tivity. Normal visualization of biliary and small bowel activity. Gallbladder visualizes within normal time limits. The calculated ejection fraction is 68% (normal gre ater than 35%). 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 No delay in visualization of the gallb ladder, biliary tree, or duodenum. Ejection fraction is 68% (normal greater than 35%). Subjective patient pain assessment as detailed above.
[2018-07-04] MEDS: LOSARTAN POTASSIUM 50 MG TABLET PO SCH (09:00)
[2018-07-04 09:26] LABS: Potassium 5.8 mmol/L (3.5-5.1)
[2018-07-04] MEDS ORDERED: SOD POLYSTYREN SUL 15 GM/60 ML UCUP PO ONE (09:36)
[2018-07-04] MEDS: AMOXICILLIN TRIHYDR 250 MG CAP PO SCH ×2 (10:13→20:52)
[2018-07-04] MEDS: APIXABAN 5 MG TABLET PO SCH ×2 (10:14→20:53)
[2018-07-04] MEDS: AMLODIPINE 5 MG TAB PO SCH (10:14)
[2018-07-04] MEDS: VENLAFAXINE HCL XR 75 MG CAP PO SCH (10:14)
[2018-07-04] MEDS: FUROSEMIDE 40 MG TABLET PO SCH (10:14)
[2018-07-04] MEDS: predniSONE 20 MG TAB PO SCH (10:15)
[2018-07-04] MEDS: URSODIOL 300 MG CAP PO SCH ×2 (10:15→17:30)
[2018-07-04] MEDS: ARFORMOTEROL TARTRATE 15 MCG/2 ML VIAL.NEB NEB SCH ×2 (11:15→20:00)
[2018-07-04 13:02] LABS: Potassium 3.8 mmol/L (3.5-5.1)
[2018-07-04 13:17] LABS: ALT/SGPT 17 U/L (12-78); AST/SGOT 17 U/L (15-37); Albumin 2.4 g/dL (3.4-5.0); Alkaline Phosphatase 69 U/L (45-117); Bilirubin Direct < 0.1 mg/dL (0-0.2); Bilirubin Total 0.2 mg/dL (0.2-1.0)
[2018-07-04] MEDS: CODEINE 30MG/APAP 300MG TAB PO PRN (17:34)
--- NOTE | 2018-07-04 20:51 | CON ---
Date of Consultation: 07/04/2018 Reason: Right-sided abdominal pain. Rule out gallbladder disease. History Of Present Illness: The patient is an 82-year-old female, who was admitted with shortness of breath and obtunded and was found to have a pneumonia; however, she is not getting better on antibio tics and had some right-sided abdominal pain. Had a HIDA scan done earlier, which was initially read to be equivocal and I was consulted. The patient is awake, alert, says the pain is in there for abo ut half an hour. She is hungry. No nausea or vomiting. No diarrhea, constipation, blood in her sto ol. She had an ultrasound of the abdomen, which showed no acute intraabdominal abnormality detected, mildly prominent common bile duct measuring 11 mm. Consideration may be given to followup MRCP exam for further workup and she also had a HIDA scan done this morning, which showed patent cystic duct, patent sphincter of Oddi. No delay in visualization of the gallbladder, biliary tree or duodenum. E F was 68% and the patient did not have significant pain after CCK infusion. Review of Systems: Otherwise unremarkable. Past Medical History: Significant for hypertension, [place], COPD, asthma, dysphagia, AFib. Past Surgical History: Tonsillectomy and cataract surgery. Allergies: CIPRO AND LEVAQUIN. Social History: The patient does not smoke or drink alcohol. Family History: Significant for stroke, hypertension, kidney disease and brother with cancer of the colon and esophagus. Physical Examination: Vital Signs: Stable. She is currently afebrile. General: She is awake, alert, and oriented. Head and Neck: Cranial nerves 2 through 12 are grossly within normal limits. No neck masses. No JV D. Throat clear. Neck is supple. Chest: Clear. Heart: S1 and S2. Abdomen: Soft. Very slight tenderness in the right side of the abdomen. No rebound, rigidity or gu arding. Extremities: Adequately perfused. Nontender. Neuro: Nonfocal. Laboratory Data: White count is 18,000 and it has been elevated since admission. There is a left sh ift. INR is 1.97. Blood gas reviewed. Chemistry showed a potassium of 5.8. Her LFTs were within n ormal limits. Procalcitonin was less than 0.05. The lactic acid is 1.9. Potassium is being correct ed with lactulose. Assessment: An 82-year-old female with multiple medical problems, with right-sided abdominal pain, s lightly dilated common bile duct. Recommendation: I do not think it is the gallbladder that is involved. She does have a lot of other medical issues, pneumonia which appears to be better; however, can lead to pericarditis and that is a possibility in this patient. Right heart failure can lead to liver congestion that can cause the p ain on the right side. My recommendation would be to get an MRCP to see what it shows. I do not thi nk the patient needs any surgical intervention at this time. We will await the results of the MRCP a nd make further recommendation. Plan of care discussed in detail with Dr. Saldana. LALITHA/JEREMIAS Voice ID: [id number] Report ID: [id number]
[2018-07-04] MEDS: ARIPiprazole 5 MG TAB PO SCH (20:52)
[2018-07-04] MEDS: MIRTAZAPINE 15 MG TAB PO SCH (20:53)
[2018-07-04] MEDS: DIAZEPAM 2 MG TABLET PO PRN (21:05)
--- NOTE | 2018-07-04 21:10 | P.PN ---
Subjective Date of Service: 07/04/18 Chief Complaint: Shortness of breath severe COPD Subjective: Improving NAUSEA, VOMITING, STILL INTUBATED, TO BE TAPERED OFF TO EXTUBATE. REFUGIO IS ANXIOUS, INTUBATED IN AM BUT LATER WAS EXTUBATED BY DR. RESENDIZ. EXTUBATED, STILL VERY WEAK. DENIES CHEST PAIN. ABLE TO BREATH ON HER OWN. STILL WEAK, NOT ABLE TO TOLERATE ANY PT. SHE STAYS WEAK, NOT ABLE TO DO MUCH PT. MS. FOWLER WAS LOOKING GOOD FOR LAST 3 DAYS UNTIL THIS AM WHEN SHE LOOKED SLIGHTLY MORE DYSPNEIC AGAIN AND WBC COUNT WENT UP TO 23K. I ORDERED CT CHEST WITH CONTRAST- NEW FINDING IS THICKENED PERICARDIUM BUTAGAIN ECHO NEEDS TO BE DONE. UA UCS ARE [facility]. CATH. SHE HAS NO UTI SYMPTOMS. BLOOD CULTURES ARE DONE. SHE IS SOME BETTER. BUT STILL VERY WEAK. NO CHEST PAIN OR COUGH. SHE IS ABOUT THE SAME. SHE IS WEAK, DYSPNEIC AT REST AND NOT ABLE TO DO PT. STILL STAYS VERY FATIGUED AND SOME DYSPNEA AT REST. SHE HAS NO NEW SYMPTOM. PATIENT FEELS BETTER ,STILL QUITE WEAK AND NOT ABLE TO DO PT. SHE IS SITTING UP ON THE SIDE OF BED. FEELS STRONGER. Review of Systems 10-point ROS is otherwise unremarkable General: Weakness, Malaise Respiratory: Shortness of Breath Physical Examination - Vital Signs Temperature: 97.6 F Blood Pressure: 172/80 Pulse: 76 Respirations: 18 Pulse Ox (%): 92 - Physical Exam General: Alert, Mild distress, Obese HEENT: Atraumatic, PERRLA, EOMI Neck: Supple, JVD not distended Respiratory: Diminished Cardiovascular: Regular rate/rhythm, Normal S1 S2 Gastrointestinal: Normal bowel sounds, No tenderness Musculoskeletal: No tenderness Integumentary: No rashes Neurological: Normal speech, Normal tone, Normal affect Lymphatics: No axilla or inguinal lymphadenopathy - Studies Medications List Reviewed: Yes Assessment And Plan - Current Problems (Diagnosis) (1) Respiratory failure Current Visit: Yes Status: Chronic Plan: SHE HAS SEVERE COPD. COMES BACK WITH HYPERCAPNEA AND INTUBATED STATUS DESPITE TREATMENT. FAMILY IS AWARE AND NOT WILLING TO LET HER SUFFER IN SUCH CONDITION FOR LONG. SON IS WORRIED ABOUT HER POOR QUALITY OF LIFE. I AGREE. RESUME SOLUMEDROL. NEBS EXTUBATION IN AM IF SHE IS AWAKE ENOUGH. RESUME LASIX SOLUMEDROL IV. NEBS EXTUBATE IF SAFE TODAY. STABLE. EXTUBATED TODAY. PROGNOSIS OVERALL POOR. COPD EXTUBATED NOW. STILL VERY FRAIL. ABG TODAY. REDUCE OXYGEN IF WE CAN TO 2 LT. RESUME BROVANA, AND OTHER NEBS. ABX CAN BE DEESCALATED. LETHARGIC. STAT ABG TODAY. STABLE. HYPOXIC BUT CONTROLLED WITH LOW GRADE OXYGEN. AVOID HYPERCAPNEA. CT SCAN SHOWS THAT PNEUMONIA HAS CLEARED WELL. THERE IS A NEW FINDING OF POSSIBLE PERICADIAL EFFUSION WITH THICKENING. I CALLED DR. FAULKNER AND HE ADVISED ECHO IT IS MORE ACCURATE FOR THIS ISSUE. I ALSO TALKED TO DR. RESENDIZ. I ADDED MERREM AUGMENTIN IS FAILING TO WORK. WILL ALSO ORDER SONOGRAM OF ABDOMEN. DC HAS BEEN DELAYED. I TALKED TO FAMILY MEMBERS AND ADVISED [facility]. SHE WILL NOT DO WELL. THEY ARE ASKING ABOUT HOSPICE. I ADVISED TO WAIT ABOUT 2 WEEKS AT [facility] WITH IV ABX AND THEN DECIDE. SHE REFUSES TO GO TO [facility]. DAUGHTER IN LAW CONFIRMED THAT IN THE NH WHEN SHE REACHED SHE VOMITED AND ASPIRATED , THAT BROUGHT HER BACK TO HOSPITAL. Qualifiers: Chronicity: acute on chronic Respiratory failure complication: hypercapnia Qualified Code(s): J96.22 - Acute and chronic respiratory failure with hypercapnia (2) Subendocardial [place] first episode care Current Visit: Yes Status: Acute Plan: THIS MAY BE FROM ACUTE STRAIN. MEDICAL MANAGEMENT. SHE IS NOT A CANDIDATE FOR ANY INVASIVE EVALUATION. (3) Atrial fibrillation, new onset Current Visit: No Status: Acute Plan: DIAGNOSED FIRST TIME LAST VISIT. RESUME BETAPACE AND ELIQUIS. DC LOVENOX GO BACK TO BETAPACE AND ELIQUIS. (4) Dehydration Current Visit: Yes Status: Acute Plan: REDUCE LASIX TO ORAL SMALLER DOSE. CHECK LAB DAILY. (5) [facility] resident Current Visit: Yes Status: Acute Plan: SON PHILL.Juan Antonio I ADVIED NH FOR LIFE TIME BUT SHE IS ADAMENT IN GOING HOME AFTER NH. SHE CARRIES POOR PROGNOSIS. (6) Leukocytosis Current Visit: Yes Status: Acute Plan: MS. FOWLER FLUCTUATES IN HER SYMPTOMS AND CONDITION. SHE FAILED TO RECOVER ON ZOSYN AND LATER AUGMENTIN. HER PNEUMONIA CLEARED BUT SHE GOT WORSE. HER WBC WENT UP. SHE HAS NO UTI SS. HER ECHO SHOWS INFLAMED PERICARDIUM BUT NOT MUCH WE CAN DO TO BIOPSY OR DRAIN IT HER CONDITION IS POOR ENOUGH NOT TOLERATE. HER PROCALCITONIN IS NORMAL BUT I STILL BELIEVE SHE IS SEPTIC FROM A CAUSE WE CAN'T CLEARLY IDENTIFY. SHE MAY HAVE SEPTIC PERICARDITIS FROM PROXIMITY OF PNEUMONIA OR MAY HAVE INFLAMMATORY PERICARDITIS BUT IT DOES NOT EXPLAIN WBC ELEVATION. ROLO SEPTICEMIA IS POSSIBLE BUT CULTURES HAVE BEEN NEGATIVE SO FAR. SONOGRAM IS NEGATIVE FOR ANY ACUTE ILLNESS. SHE HAS NO ABDOMEN SYMPTOMS AT ALL. I HAVE TALKED TO FAMILY AND THEY ARE LEANING TOWARDS HOSPICE BUT I SUGGESTED [facility] FOR TWO WEEKS BEFORE WE DO SO TO GIVE TIME FOR ABX O WORK IV. ON MERREM THE WBC HAS COME DOWN SOME. WBC COUNT HAS FLUCTUATED FROM 23K DOWN TO 15K AND NOW UP AGAIN 18K. I REDUCED PREDNISONE YESERDAY AND AND HOPEFULLY THE NUMBERS WILL BE LOWER. I DI HIDA SCAN THAT IS NEGATIVE BUT HER BILE DUCT IS DIALTED MILD. MRCP ORDERED FOR AM. I AM MAKING SURE TO SEE IF THERE IS ANY OTHER SOURCE OF WBC ELEVATION. HER WBC WAS HIGH BEFORE STEROIDS AT 23K, THEN GOT ON MERREM AND IT CAME DOWN TO 15K. A DAY AFTER MERREM DR. RESENDIZ STARTED HER ON PREDNISONE AND SO PART OF THE WBC ELEVATION IS FROM IT. (7) Pericarditis Current Visit: Yes Status: Acute Plan: THIS CAN BE THE REASON WHY WBC COUNT RAISED. SHE HAD PNEUMONIA AND NOW THE INFECTION CAN LODGE IN PERICARDIUM SHE IN A VERY POOR STAGE FOR ANY SURGICAL OPTION. FAMILY UNDERSTANDS AND SHE UNDERSTANDS. SHE IS OPEN TO HOSPICE FOR COPD. I ADVISED TO FINISH ANTIBIOTICS FOR 2 WEEKS AND THEN THINK ABOUT HOSPICE IF NOT BETTER. I THINK SHE HAS SEPTIC PERICARDITIS. THERE IS NO OTHER SOURCE OF INFECTION SO FAR. HER PNEUMONIA HAS CLEARED, HER FOUR BLOOD CULTURES HAVE BEEN NEGATIVE , EVEN FOR ROLO, HER SECOND URINE CULTURE IS NEGATIVE. SHE IS IMPROVING WITH WBC DOWN TO 15K ONLY AFTER ADDITION OF MERREM AND SO I THINK SHE SHOULD CONTINUE THAT FOR 2 WEEKS AT [place]. WILL DC IN AM, SHE IS STABLE FOR NOW. Qualifiers: Pericarditis type: infectious Infectious pericarditis etiology: unspecified Chronicity: acute Qualified Code(s): I30.1 - Infective pericarditis
[2018-07-05] MEDS: Meropenem 500 MG in NA CHLORIDE 0.9% 100 ML IV SCH ×3 (00:28→17:00)
[2018-07-05] MEDS: IPRATROPIUM BROM 0.5MG/2.5ML NEB SCH ×4 (02:00→17:45)
[2018-07-05] MEDS: SOTALOL HCL 80 MG TAB PO SCH ×2 (05:40→18:00)
[2018-07-05] MEDS: ARFORMOTEROL TARTRATE 15 MCG/2 ML VIAL.NEB NEB SCH (08:00)
[2018-07-05] MEDS: URSODIOL 300 MG CAP PO SCH ×4 (08:00→18:42)
[2018-07-05] MEDS: AMLODIPINE 5 MG TAB PO SCH ×2 (09:00)
[2018-07-05] MEDS: FUROSEMIDE 40 MG TABLET PO SCH ×2 (09:00)
[2018-07-05] MEDS ORDERED: HYDRALAZINE HCL 25 MG TABLET PO SCH (09:00)
[2018-07-05] MEDS: VENLAFAXINE HCL XR 75 MG CAP PO SCH (09:00)
[2018-07-05] MEDS: APIXABAN 5 MG TABLET PO SCH ×2 (09:00)
[2018-07-05] MEDS: AMOXICILLIN TRIHYDR 250 MG CAP PO SCH (09:00)
[2018-07-05] MEDS: predniSONE 20 MG TAB PO SCH (09:00)
[2018-07-05] MEDS: CODEINE 30MG/APAP 300MG TAB PO PRN ×2 (10:16→18:45)
[2018-07-05 10:20] VITALS: O2SAT 97
--- NOTE | 2018-07-05 11:27 | RAD REPORT ---
EXAM DESCRIPTION: MRI - Cholangiogram - 07/05/2018 11:04 am CLINICAL HISTORY: dilated bile duct Right upper quadrant abdominal pain COMPARISON: Abdomen Exam Complete dated 06/30/2018 FINDINGS: Three-dimensional MRCP was performed using maximum intensity projection reconstruction on the same work station. No intrahepatic biliary tree dilatation is seen. The common bile duct is mildly prominent in caliber without evidence of retained stone, stricture or mass. The pancreatic duct is not pathologically dila leanne. The gallbladder is unremarkable. Limited T2 sequences through the abdomen demonstrates no bulky adenopathy, significant free fluid or abscess. Bilateral pleural effusions, larger on the left, with opacity in the left lung base noted. IMPRESSION: Negative MR cholangiogram.
[2018-07-05 12:48] LABS: Absolute Lymphocytes (CBC) 1.5 K/uL (0.7-4.9); Absolute Neutrophil 10.8 K/uL (1.8-8.0); Basophils % 0.7 % (0-1.3); Eosinophils % 0.5 % (0-4.4); Hematocrit 34.7 % (36.0-45.0); Lymphocytes % 11.3 % (15.3-44.8); MPV 8.6 fL (7.6-11.3); Monocytes % 7.2 % (3.3-12.3); RBC Red Blood Cell Count 4.04 M/uL (3.86-4.86)
--- NOTE | 2018-07-05 12:50 | P.DS ---
Admission Date: 06/22/18 Discharge Date: 07/05/18 Disposition: TRANSFER TO [facility] Discharge Condition: FAIR Reason for Admission: Shortness of breath severe COPD - Problems (1) Respiratory failure Current Visit: Yes Status: Chronic Qualifiers: Chronicity: acute on chronic Respiratory failure complication: hypercapnia Qualified Code(s): J96.22 - Acute and chronic respiratory failure with hypercapnia (2) Subendocardial [place] first episode care Current Visit: Yes Status: Acute (3) Atrial fibrillation, new onset Current Visit: No Status: Acute (4) Dehydration Current Visit: Yes Status: Acute (5) correction resident Current Visit: Yes Status: Acute (6) Leukocytosis Current Visit: Yes Status: Acute (7) Pericarditis Current Visit: Yes Status: Acute Qualifiers: Pericarditis type: infectious Infectious pericarditis etiology: unspecified Chronicity: acute Qualified Code(s): I30.1 - Infective pericarditis Brief History of Present Illness: MS. FOWLER IS 82 YEARS OLD LADY WITH SEVERE COPD, AND RECENT ADMISSION FOR A.FIB. WAS SENT HOME IN STABLE CONDITION BUT WITH GUARDED PROGNOSIS, COMES BACK WITH DYSPNEA, OBTUNDATION, INTUBATED AT [facility] AND BROUGHT TO ER. SHE IS SEDATED FOR NOW. I TALKED TO SON. MS. FOWLER IS DOING A LOT BETTER. SHE IS STIL VERY WEAK AND WILL GO BACK TO [place]. SHE HAD ASPIRATION PNEUMONIA PER DR. RESENDIZ AND THAT MAY HAVE HAPPENED IN [place]. AUGMENTIN GIVEN FOR IT. REFUGIO HAD EXTENSIVE TESTING DONE. REARDING WBC ELEVATION I DON'T FIND ANY OTHER DIAGNOSIS THAN SEPTIC PERIARDITIS. SHE IS DOING GREAT ON MERREM, I WILL CONTINUE FOR 2 WEEKS I HOPE SHE DOES NOT HAVE ANY NEW ISSUES. SHE IS STABLE TO GO HOME AND LOOKS A LOT BETTER FOR NOW. DR. ZAMORA AGREES. Vital Signs/Physical Exam: Temp Pulse Resp BP Pulse Ox 97.1 F 75 18 161/72 H 97 07/05/18 08:00 07/05/18 08:00 07/05/18 08:00 07/05/18 08:00 07/05/18 08:00 Laboratory Data at Discharge: WBC 18.0 K/uL (4.3-10.9) H 07/04/18 07:50 Hgb 11.3 g/dL (12.0-15.0) L 07/04/18 07:50 Hct 35.1 % (36.0-45.0) L 07/04/18 07:50 Plt Count 499 K/uL (152-406) H D 07/04/18 07:50 PT 22.6 SECONDS (9.5-12.5) H 06/22/18 14:20 INR 1.97 06/22/18 14:20 Sodium 142 mmol/L (136-145) 07/04/18 12:30 Potassium 3.8 mmol/L (3.5-5.1) 07/04/18 12:30 BUN 36 mg/dL (7-18) H 07/04/18 12:30 Creatinine 0.84 mg/dL (0.55-1.3) 07/04/18 12:30 Glucose 84 mg/dL (74-106) 07/04/18 12:30 Magnesium 2.5 mg/dL (1.8-2.4) H 07/02/18 05:30 Total Bilirubin 0.2 mg/dL (0.2-1.0) 07/04/18 12:40 AST 17 U/L (15-37) 07/04/18 12:40 ALT 17 U/L (12-78) 07/04/18 12:40 Alkaline Phosphatase 69 U/L (45-117) 07/04/18 12:40 Troponin I 1.00 ng/mL (0.0-0.045) H* 06/23/18 01:40 Home Medications: ARIPiprazole [Abilify*] 5 mg PO DAILY 03/17/18 Albuterol Sulfate [Proair Hfa] 2 puff IH QID 03/17/18 Amlodipine [Norvasc*] 5 mg PO DAILY 03/17/18 Codeine/APAP [Tylenol #3*] 1 tab PO Q4HP PRN 03/17/18 Losartan Potassium [Cozaar*] 50 mg PO DAILY 03/17/18 Mirtazapine [Remeron*] 15 mg PO BEDTIME 03/17/18 Umeclidinium Brm/Vilanterol Tr [Anoro Ellipta 62.5-25 Mcg INH] 1 puff IH DAILY 03/17/18 Ursodiol 300 mg PO BID 03/17/18 Venlafaxine HCl [Venlafaxine HCl ER] 150 mg PO DAILY WITH BREAKFAST 03/17/18 diazePAM [Diazepam] 5 mg PO BEDTIME 03/17/18 Apixaban [Eliquis] 5 mg PO BID tablet 06/20/18 Arformoterol Tartrate [Brovana] 15 mcg NEB BIDRESP vial.neb 06/20/18 Sotalol HCl [Betapace*] 80 mg PO BID 6AM 6PM tab 06/20/18 cloNIDine HCl [Catapres*] 0.1 mg PO Q2HP PRN tab 06/20/18 Amox/Clavulanate [Augmentin 875-125 Tab*] 875 mg PO BID tab 06/28/18 Furosemide [Lasix*] 20 mg PO DAILY tab 06/28/18 Followup: Arjun Zamora MD [ACTIVE - CAN ADMIT] - Slade Saldana MD [ACTIVE - CAN ADMIT] -
[2018-07-05 13:04] LABS: Potassium 3.4 mmol/L (3.5-5.1)
[2018-07-05 18:47] VITALS: BP 162/76; TEMP 98.3
== END 2018-07-05 18:57 | DRG 208 ==
LOC: ER 14:07 → ERHOLD 17:05 → 3RD-ICU 21:08 → 2ND 06-25 12:54
PROVIDERS: ADMIT Internal Medicine; ATTEND Internal Medicine
PROC: 5A1945Z Respiratory Ventilation, 24-96 Consecutive Hours (ICD-10-PCS; principal; 2018-06-22)
PROC: 02HV33Z Insertion of Infusion Device into Superior Vena Cava, Percutaneous Approach (ICD-10-PCS; 2018-06-30)
DX: J96.22 Acute and chronic respiratory failure with hypercapnia (principal); I21.4 Non-ST elevation (NSTEMI) myocardial infarction; I50.33 Acute on chronic diastolic (congestive) heart failure; I30.1 Infective pericarditis; J44.1 Chronic obstructive pulmonary disease with (acute) exacerbation; E87.2 Acidosis; I48.91 Unspecified atrial fibrillation; E86.0 Dehydration; I11.0 Hypertensive heart disease with heart failure; R13.10 Dysphagia, unspecified; E66.9 Obesity, unspecified; Z68.27 Body mass index [BMI] 27.0-27.9, adult; I25.2 Old myocardial infarction; Z88.1 Allergy status to other antibiotic agents
CPT/HCPCS: 36415; 51702; 70450; 70544; 70549; 70553; 71045; 71046; 71260; 71275; 74181; 76700; 78227; 80048; 80076; 81003; 81015; 82805; 82962; 83605; 83735; 83880; 84132; 84145; 84484; 85025; 85610; 86140; 87040; 87070; 87077; 87086; 87088; 87186; 87205; 93005; 93306; 94002; 94003; 94640; 96365; 96366; 96368; 96372; 96375; 97116; 97162; 97530; 99291; 99292; A9537; A9577; J0456; J0696; J1650; J1940; J2250; J2543; J2704; J2805; J2930; J3010; J7030; J7512; J7605; Q9967

== ENCOUNTER 2018-09-03 18:42 | Emergency (ER) | payer MEDICARE ==
--- OUTSIDE RECORDS SUMMARY | 2018-09-03 18:45 | XMS REPORT ---
:1935 [facility] Address [facility] [address]. [address] [place] [id number] Care Team Providers Name Role Phone HAILEE DOWELL Unavailable Unavailable Problems This patient has no known problems. Allergies, Adverse Reactions, Alerts This patient has no known allergies or adverse reactions. Medications This patient has no known medications. Results Test Description Test Time Test Comments Text Results Atomic Results Result Comments BLOOD CULTURE 2017-01-15 00:00:00 Test Item Value Reference Range Comments CULTURE (BEAKER) (test aqeh=3033) No growth in 5 days BLOOD [id number] 00:00:00 Test Item Value Reference Range Comments CULTURE (BEAKER) (test gmzo=8226) No growth in 5 days CLOSTRIDIUM DIFFICILE TOXIN [id number] 17:09:00 Test Item Value Reference Range Comments CLOSTRIDIUM DIFFICILE TOXIN, PCR (BEAKER) (test Not Detected Not Detected fmgi=8866) This qualitative real-time polymerase chain reaction assay [...] a positive result is not recommended.BASIC METABOLIC [id number] 10:06:00 Test Item Value Reference Range Comments SODIUM (BEAKER) (test 138 meq/L 136-145 oeos=964) POTASSIUM (BEAKER) (test 4.2 meq/L 3.5-5.1 Specimen slightly ttks=016) hemolyzed CHLORIDE (BEAKER) (test 104 meq/L 98-107 bsij=800) CO2 (BEAKER) (test 24 meq/L 22-29 anin=689) BLOOD UREA NITROGEN 26 mg/dL 7-21 (BEAKER) (test tinq=437) CREATININE (BEAKER) (test 0.94 mg/dL 0.57-1.25 Specimen slightly sxua=074) hemolyzed GLUCOSE RANDOM (BEAKER) 100 mg/dL 70-105 (test mwgx=327) CALCIUM (BEAKER) (test 8.8 mg/dL 8.4-10.2 oxdf=894) EGFR (BEAKER) (test 57 mL/min/1.73 sq m ESTIMATED GFR IS NOT lyeh=7456) ACCURATE CREATININE CLEARANCE IN PREDICTING GLOMERULAR FILTRATION RATE. ESTIMATED GFR IS NOT APPLICABLE FOR DIALYSIS PATIENTS. CBC W/PLT COUNT & AUTO [id number] 09:48:00 Test Item Value Reference Range Comments WHITE BLOOD CELL COUNT 12.9 K/ L 3.5-10.5 (BEAKER) (test erpc=268) RED BLOOD CELL COUNT (BEAKER) 4.59 M/ L 3.93-5.22 (test atjo=231) HEMOGLOBIN (BEAKER) (test 13.4 GM/DL 11.2-15.7 mnnp=732) HEMATOCRIT (BEAKER) (test 43.1 % 34.1-44.9 edzm=758) MEAN CORPUSCULAR VOLUME 93.9 fL 79.4-94.8 (BEAKER) (test wpsv=101) MEAN CORPUSCULAR HEMOGLOBIN 29.2 pg 25.6-32.2 (BEAKER) (test eiuc=140) MEAN CORPUSCULAR HEMOGLOBIN 31.1 GM/DL 32.2-35.5 CONC (BEAKER) (test fbyb=484) RED CELL DISTRIBUTION WIDTH 12.8 % 11.7-14.4 (BEAKER) (test mrmj=197) PLATELET COUNT (BEAKER) (test 286 K/CU MM 150-450 .Discordant from previous akbz=686) results. Clinical correlation suggested. MEAN PLATELET VOLUME (BEAKER) 10.3 fL 9.4-12.3 (test rizd=000) NUCLEATED RED BLOOD CELLS 0 /100 WBC 0-0 (BEAKER) (test kyyt=457) NEUTROPHILS RELATIVE PERCENT 70 % (BEAKER) (test lmuv=300) LYMPHOCYTES RELATIVE PERCENT 17 % (BEAKER) (test pdef=170) MONOCYTES RELATIVE PERCENT 8 % (BEAKER) (test smoy=092) EOSINOPHILS RELATIVE PERCENT 3 % (BEAKER) (test xhsu=360) BASOPHILS RELATIVE PERCENT 1 % (BEAKER) (test aohw=682) NEUTROPHILS ABSOLUTE COUNT 9.04 K/ L 1.56-6.13 (BEAKER) (test fips=001) LYMPHOCYTES ABSOLUTE COUNT 2.22 K/ L 1.18-3.74 (BEAKER) (test lvmi=631) MONOCYTES ABSOLUTE COUNT 0.99 K/ L 0.24-0.36 (BEAKER) (test vpmk=978) EOSINOPHILS ABSOLUTE COUNT 0.32 K/ L 0.04-0.36 (BEAKER) (test smtb=183) BASOPHILS ABSOLUTE COUNT 0.15 K/ L 0.01-0.08 (BEAKER) (test eqgn=587) IMMATURE 1 % 0-1 GRANULOCYTES-RELATIVE PERCENT (BEAKER) (test vpeg=4611) RAD, FOOT, 2 VIEWS, [id number] 16:52:00Reason for exam:->pain with ambulationFINAL REPORT Radiograph [...] Peterson Verified Date/Time: 01/12/2017 16:52:45 Reading Location: [address] Consult Reading Room T4, [id number] 16:26:00 Test Item Value Reference Range Comments FREE T4 (BEAKER) (test huef=397) 1.12 ng/dL 0.70-1.48 TSH/FREE T4 IF [id number] 15:46:00 Test Item Value Reference Range Comments THYROID STIMULATING HORMONE (BEAKER) (test 0.03 uIU/mL 0.35-4.94 zruj=319) BASIC METABOLIC [id number] 15:35:00 Test Item Value Reference Range Comments SODIUM (BEAKER) (test 136 meq/L 136-145 fkmr=737) POTASSIUM (BEAKER) (test 4.1 meq/L 3.5-5.1 ulsf=587) CHLORIDE (BEAKER) (test 99 meq/L 98-107 knju=508) CO2 (BEAKER) (test 24 meq/L 22-29 uqut=026) BLOOD UREA NITROGEN 32 mg/dL 7-21 (BEAKER) (test mlln=511) CREATININE (BEAKER) (test 1.12 mg/dL 0.57-1.25 cwdn=741) GLUCOSE RANDOM (BEAKER) 164 mg/dL 70-105 (test jzxp=232) CALCIUM (BEAKER) (test 10.2 mg/dL 8.4-10.2 vgkp=921) EGFR (BEAKER) (test 46 mL/min/1.73 sq m ESTIMATED GFR IS NOT mhoh=7063) ACCURATE CREATININE CLEARANCE IN PREDICTING GLOMERULAR FILTRATION RATE. ESTIMATED GFR IS NOT APPLICABLE FOR DIALYSIS PATIENTS. CBC W/PLT COUNT & AUTO [id number] 15:06:00 Test Item Value Reference Range Comments WHITE BLOOD CELL COUNT (BEAKER) (test qwjy=080) 17.4 K/ L 3.5-10.5 RED BLOOD CELL COUNT (BEAKER) (test quxr=747) 4.93 M/ L 3.93-5.22 HEMOGLOBIN (BEAKER) (test zhlw=717) 14.0 GM/DL 11.2-15.7 HEMATOCRIT (BEAKER) (test fgds=111) 44.8 % 34.1-44.9 MEAN CORPUSCULAR VOLUME (BEAKER) (test rgno=125) 90.9 fL 79.4-94.8 MEAN CORPUSCULAR HEMOGLOBIN (BEAKER) (test 28.4 pg 25.6-32.2 kmov=849) MEAN CORPUSCULAR HEMOGLOBIN CONC (BEAKER) (test 31.3 GM/DL 32.2-35.5 jfun=740) RED CELL DISTRIBUTION WIDTH (BEAKER) (test 12.9 % 11.7-14.4 uzwl=963) PLATELET COUNT (BEAKER) (test yrns=802) 360 K/CU MM 150-450 MEAN PLATELET VOLUME (BEAKER) (test vgsi=960) 10.5 fL 9.4-12.3 NUCLEATED RED BLOOD CELLS (BEAKER) (test 0 /100 WBC 0-0 jrnt=509) NEUTROPHILS RELATIVE PERCENT (BEAKER) (test 82 % fmyb=570) LYMPHOCYTES RELATIVE PERCENT (BEAKER) (test 11 % eykq=500) MONOCYTES RELATIVE PERCENT (BEAKER) (test 4 % owzs=851) EOSINOPHILS RELATIVE PERCENT (BEAKER) (test 0 % udoh=326) BASOPHILS RELATIVE PERCENT (BEAKER) (test 1 % ubop=239) NEUTROPHILS ABSOLUTE COUNT (BEAKER) (test 14.33 K/ L 1.56-6.13 xhls=931) LYMPHOCYTES ABSOLUTE COUNT (BEAKER) (test 1.97 K/ L 1.18-3.74 ucat=868) MONOCYTES ABSOLUTE COUNT (BEAKER) (test 0.71 K/ L 0.24-0.36 ptxl=911) EOSINOPHILS ABSOLUTE COUNT (BEAKER) (test 0.05 K/ L 0.04-0.36 hupt=262) BASOPHILS ABSOLUTE COUNT (BEAKER) (test 0.16 K/ L 0.01-0.08 pbat=604) IMMATURE GRANULOCYTES-RELATIVE PERCENT (BEAKER) 1 % 0-1 (test xaoy=6770) URINE [id number] 08:21:00 Test Item Value Reference Range Comments CULTURE (BEAKER) (test etad=0263) Amikacin (test code=1) Ampicillin + Sulbactam (test code=6) Aztreonam (test code=32) Cefepime (test code=51) Cefoxitin (test code=68) Ceftazidime (test code=27) Ceftriaxone (test code=52) Ertapenem (test code=38) Gentamicin (test code=18) Levofloxacin (test code=22) Meropenem (test code=34) Nitrofurantoin (test code=23) Piperacillin + Tazobactam (test code=29) Tetracycline (test code=2) Tobramycin (test code=25) Trimethoprim + Sulfamethoxazole (test code=47) CULTURE (BEAKER) (test syyb=9460) >100,000 col/mL Proteus mirabilis <10,000 col/mL skin ranjith<10,000 col/mL gram negative rods of a second typeMR, BRAIN, WITHOUT [id number] 16:03:00Reason for exam:->Ischemic Stroke EvaluationFINAL REPORT MRI [...] [place] [facility] Verified Date/Time: 16:03:04 Reading Location: [address] Neuro Reading Room URINALYSIS W/ [id number] 15:35:00 Test Item Value Reference Range Comments COLOR (BEAKER) (test jwiq=936) Light Yellow CLARITY (BEAKER) (test fivl=898) Hazy SPECIFIC GRAVITY UA (BEAKER) (test jfrr=628) 1.010 1.001-1.035 PH UA (BEAKER) (test jlpb=759) 8.0 5.0-8.0 PROTEIN UA (BEAKER) (test zlny=038) 20 mg/dL Negative GLUCOSE UA (BEAKER) (test utfc=911) Negative Negative KETONES UA (BEAKER) (test oayt=420) Negative Negative BILIRUBIN UA (BEAKER) (test gnts=793) Negative Negative BLOOD UA (BEAKER) (test prnm=328) Negative Negative NITRITE UA (BEAKER) (test zqje=355) Negative Negative LEUKOCYTE ESTERASE UA (BEAKER) (test obzp=093) Large Negative UROBILINOGEN UA (BEAKER) (test jgdt=279) 0.2 mg/dL 0.2-1.0 RBC UA (BEAKER) (test vvks=108) 2 /HPF WBC UA (BEAKER) (test jsgz=253) 87 /HPF SQUAMOUS EPITHELIAL (BEAKER) (test fkzc=166) 3 /HPF SOURCE(BEAKER) (test iufo=0212) Urine, Voided URINALYSIS W/ REFLEX URINE [id number] 15:35:00 Test Item Value Reference Range Comments COLOR (BEAKER) (test zmwx=190) Light Yellow CLARITY (BEAKER) (test fwwp=028) Hazy SPECIFIC GRAVITY UA (BEAKER) (test cklt=344) 1.010 1.001-1.035 PH UA (BEAKER) (test zzmj=674) 8.0 5.0-8.0 PROTEIN UA (BEAKER) (test akpp=609) 20 mg/dL Negative GLUCOSE UA (BEAKER) (test absw=198) Negative Negative KETONES UA (BEAKER) (test zcsi=989) Negative Negative BILIRUBIN UA (BEAKER) (test ogry=276) Negative Negative BLOOD UA (BEAKER) (test ljnx=514) Negative Negative NITRITE UA (BEAKER) (test dzuq=578) Negative Negative LEUKOCYTE ESTERASE UA (BEAKER) (test afjc=260) Large Negative UROBILINOGEN UA (BEAKER) (test uxvp=453) 0.2 mg/dL 0.2-1.0 RBC UA (BEAKER) (test kakf=891) 2 /HPF WBC UA (BEAKER) (test qmoc=337) 87 /HPF SQUAMOUS EPITHELIAL (BEAKER) (test dkyl=782) 3 /HPF SOURCE(BEAKER) (test pjkz=2926) Urine, Voided [id number] 14:30:00 Test Item Value Reference Range Comments RPR SCREEN (BEAKER) (test uwgc=824) Nonreactive Nonreactive HEMOGLOBIN [id number] 10:58:00 Test Item Value Reference Range Comments HEMOGLOBIN A1C (BEAKER) (test xydk=403) 5.8 % 4.3-6.1 SEDIMENTATION [id number] 10:44:00 Test Item Value Reference Range Comments SEDIMENTATION RATE, ERYTHROCYTE (BEAKER) (test 52 mm/HR 0-40 qphy=685) T4, [id number] 09:16:00 Test Item Value Reference Range Comments FREE T4 (BEAKER) (test qqjj=843) 0.94 ng/dL 0.70-1.48 TSH/FREE T4 IF [id number] 08:42:00 Test Item Value Reference Range Comments THYROID STIMULATING HORMONE (BEAKER) (test 0.05 uIU/mL 0.35-4.94 klpf=456) VITAMIN B12 AND [id number] 08:37:00 Test Item Value Reference Range Comments VITAMIN B12 (BEAKER) (test dowv=054) 829 pg/mL 213-816 FOLATE (BEAKER) (test btya=875) 15.9 ng/mL >=7.0 [id number] 08:36:00 Test Item Value Reference Range Comments HOMOCYSTEINE (BEAKER) (test pbzo=288) 10.2 umol/L 5.1-15.4 LIPID [id number] 08:26:00 Test Item Value Reference Range Comments TRIGLYCERIDES (BEAKER) (test ppav=624) 86 mg/dL CHOLESTEROL (BEAKER) (test rptg=963) 194 mg/dL HDL CHOLESTEROL (BEAKER) (test avwo=614) 66 mg/dL LDL CHOLESTEROL CALCULATED (BEAKER) (test 111 mg/dL hgom=150) Triglyceride Reference Range: Low Risk <150 Borderline 150- 199 High Risk 200-499 Very High Risk >=500Cholesterol Reference Range: Low Risk <200 Borderline 200-239 High Risk > 240HDL Cholesterol Reference Range: Low Risk >=60 High Risk <40LDL Cholesterol Reference Range: Optimal <100 Near Optimal 100-129 Borderline 130-159 High 160-189 Very High >=190 FastingBASIC METABOLIC [id number] 08:26:00 Test Item Value Reference Range Comments SODIUM (BEAKER) (test 136 meq/L 136-145 dytn=897) POTASSIUM (BEAKER) (test 4.7 meq/L 3.5-5.1 rrng=273) CHLORIDE (BEAKER) (test 99 meq/L 98-107 yfqy=417) CO2 (BEAKER) (test 24 meq/L 22-29 ueip=543) BLOOD UREA NITROGEN 27 mg/dL 7-21 (BEAKER) (test nktl=688) CREATININE (BEAKER) (test 1.04 mg/dL 0.57-1.25 gqdn=901) GLUCOSE RANDOM (BEAKER) 133 mg/dL 70-105 (test bcoy=563) CALCIUM (BEAKER) (test 8.8 mg/dL 8.4-10.2 mtyu=976) EGFR (BEAKER) (test 51 mL/min/1.73 sq m ESTIMATED GFR IS NOT uigx=9064) ACCURATE CREATININE CLEARANCE IN PREDICTING GLOMERULAR FILTRATION RATE. ESTIMATED GFR IS NOT APPLICABLE FOR DIALYSIS PATIENTS. FastingHEPATIC FUNCTION [id number] 08:26:00 Test Item Value Reference Range Comments TOTAL PROTEIN (BEAKER) (test bpxh=218) 6.8 gm/dL 6.0-8.3 ALBUMIN (BEAKER) (test chdk=7690) 3.4 g/dL 3.5-5.0 BILIRUBIN TOTAL (BEAKER) (test epwy=036) 0.6 mg/dL 0.2-1.2 BILIRUBIN DIRECT (BEAKER) (test onoh=267) 0.2 mg/dL 0.1-0.5 ALKALINE PHOSPHATASE (BEAKER) (test cyxs=691) 67 U/L 40-150 AST (SGOT) (BEAKER) (test vucb=936) 16 U/L 5-34 ALT (SGPT) (BEAKER) (test gdra=287) 11 U/L 6-55 FastingCREATINE KINASE (CK), TOTAL AND [id number] 08:26:00 Test Item Value Reference Range Comments CREATINE KINASE TOTAL (BEAKER) (test sule=961) 30 U/L 29-200 CREATINE KINASE-MB (BEAKER) (test xqgs=695) 0.8 ng/mL 0.0-6.6 CREATINE KINASE-MB INDEX (BEAKER) (test nwiy=982) 2.7 % CK-MB Reference Range:<6.7 Normal6.7-10.0 Borderline>10.0 AbnormalFastingFastingC-REACTIVE [id number] 08:26:00 Test Item Value Reference Range Comments C-REACTIVE PROTEIN (BEAKER) (test nqox=184) 1.74 mg/dL 0.00-0.50 FastingCBC W/PLT COUNT & AUTO [id number] 07:57:00 Test Item Value Reference Range Comments WHITE BLOOD CELL COUNT (BEAKER) (test sfuz=059) 16.6 K/ L 3.5-10.5 RED BLOOD CELL COUNT (BEAKER) (test smus=576) 4.21 M/ L 3.93-5.22 HEMOGLOBIN (BEAKER) (test qctg=229) 12.3 GM/DL 11.2-15.7 HEMATOCRIT (BEAKER) (test zslf=827) 38.4 % 34.1-44.9 MEAN CORPUSCULAR VOLUME (BEAKER) (test xokw=382) 91.2 fL 79.4-94.8 MEAN CORPUSCULAR HEMOGLOBIN (BEAKER) (test 29.2 pg 25.6-32.2 tjqo=293) MEAN CORPUSCULAR HEMOGLOBIN CONC (BEAKER) (test 32.0 GM/DL 32.2-35.5 ydga=809) RED CELL DISTRIBUTION WIDTH (BEAKER) (test 12.9 % 11.7-14.4 mwlf=542) PLATELET COUNT (BEAKER) (test kack=829) 296 K/CU MM 150-450 MEAN PLATELET VOLUME (BEAKER) (test raod=618) 10.3 fL 9.4-12.3 NUCLEATED RED BLOOD CELLS (BEAKER) (test 0 /100 WBC 0-0 motz=201) NEUTROPHILS RELATIVE PERCENT (BEAKER) (test 78 % gxyp=126) LYMPHOCYTES RELATIVE PERCENT (BEAKER) (test 15 % dors=559) MONOCYTES RELATIVE PERCENT (BEAKER) (test 5 % kjmx=334) EOSINOPHILS RELATIVE PERCENT (BEAKER) (test 1 % bhhc=048) BASOPHILS RELATIVE PERCENT (BEAKER) (test 1 % sycl=831) NEUTROPHILS ABSOLUTE COUNT (BEAKER) (test 12.92 K/ L 1.56-6.13 xquv=344) LYMPHOCYTES ABSOLUTE COUNT (BEAKER) (test 2.40 K/ L 1.18-3.74 qmuk=528) MONOCYTES ABSOLUTE COUNT (BEAKER) (test 0.90 K/ L 0.24-0.36 zgva=053) EOSINOPHILS ABSOLUTE COUNT (BEAKER) (test 0.08 K/ L 0.04-0.36 tpsu=462) BASOPHILS ABSOLUTE COUNT (BEAKER) (test 0.11 K/ L 0.01-0.08 tmus=521) IMMATURE GRANULOCYTES-RELATIVE PERCENT (BEAKER) 1 % 0-1 (test phrl=7338) TROPONIN [id number] 07:47:00 Test Item Value Reference Range Comments TROPONIN I (BEAKER) (test nslt=293) 0.01 ng/mL 0.00-0.03 Troponin I (TnI) levels [...]
--- OUTSIDE RECORDS SUMMARY | 2018-09-03 18:45 | XMS REPORT | Clinical Summary ---
:1935 Author Organization [facility] Address [address] [place] [address] Care Team Providers Name Role Phone Sharpdavid [...] Not on file Results Not on fileafter 09/02/2017 Insurance Payer Benefit Plan / Group Subscriber ID Type Phone Address MEDICARE MEDICARE A B xxxxxxxxxx Medicare MCR SUPPLEMENT/INDIVIDUAL AARP/[facility] xxxxxxxxxxx [address]en (Home) [address] [place] [address] Advance Directives For more information, please contact:[address] [phone] Code Status Date Activated Date Inactivated Comments Full Code 01/09/2017 3:57 AM 01/13/2017 2:09 PM This code status was determined by: Patient
--- NOTE | 2018-09-03 20:00 | RAD REPORT ---
EXAM DESCRIPTION: RAD - Chest Single View - 09/03/2018 7:38 pm CLINICAL HISTORY: COUGH Chest pain. COMPARISON: Chest Single View dated 06/30/2018; Chest Pa And Lat (2 Views) dated 06/29/2018; Chest Sin gle View dated 06/26/2018; Chest Single View dated 06/23/2018 FINDINGS: Portable technique limits examination quality. The lungs are grossly clear. The heart is mildly enlarged in size. No displaced fractures. IMPRESSION: No acute intrathoracic process suspected.
[2018-09-03] MEDS ORDERED: CEFTRIAXONE/SWI 1gm 1 GM/10 ML SYR ONE (20:10)
[2018-09-03] MEDS ORDERED: METRONIDAZOLE 500mg IVPB 500 MG/100 ML BAG IV ONE (20:11)
[2018-09-03] MEDS ORDERED: NA CHLORIDE 0.9% 1,000 ML ONE (20:11)
[2018-09-03 20:20] LABS: Protime INR 1.52
[2018-09-03 20:37] LABS: Absolute Lymphocytes (CBC) 1.9 K/uL (0.7-4.9); Absolute Monocytes 0.9 K/uL (0.1-1.3); Absolute Neutrophil 7.4 K/uL (1.8-8.0); Basophils % 0.6 % (0-1.3); Eosinophils % 3.9 % (0-4.4); Hematocrit 35.1 % (36.0-45.0); Lymphocytes % 17.9 % (15.3-44.8); Monocytes % 8.5 % (3.3-12.3); RBC Red Blood Cell Count 4.05 M/uL (3.86-4.86)
[2018-09-03 20:53] LABS: ALT/SGPT 15 U/L (12-78); AST/SGOT 20 U/L (15-37); Albumin 2.9 g/dL (3.4-5.0); Alkaline Phosphatase 77 U/L (45-117); BUN Blood Urea Nitrogen 17 mg/dL (7-18); Bicarbonate 36 mmol/L (21-32); Bilirubin Direct < 0.1 mg/dL (0-0.2); Bilirubin Total 0.2 mg/dL (0.2-1.0); Glucose Level 115 mg/dL (74-106); Lipase 140 U/L (73-393); Magnesium 2.1 mg/dL (1.8-2.4); NT PRO-BNP 601 pg/mL (<450); Potassium 4.4 mmol/L (3.5-5.1); Protein, Total 7.7 g/dL (6.4-8.2); Sodium Level 138 mmol/L (136-145); Troponin (Emerg Dept Use Only) < 0.02 ng/mL (0.0-0.045)
[2018-09-03] MEDS ORDERED: IPRATROPIUM BROM 0.5MG/2.5ML ONE (21:20)
[2018-09-03] MEDS ORDERED: METHYLPREDNISOLONE 125 MG INJ ONE (21:20)
[2018-09-03] MEDS ORDERED: LEVALBUTEROL 1.25 MG/3 ML NEB ONE (21:21)
--- NOTE | 2018-09-03 22:08 | ER ---
Nurse's Notes [facility] Name: Elida Pradhan Age: 82 yrs Sex: Female : 1935 Arrival Date: 09/03/2018 Time: 18:48 Bed 8 Private MD: Diagnosis: Gastrointestinal hemorrhage, unspecified;Chronic obstructive pulmonary disease, unspecified Presentation: 09/03 18:48 Presenting complaint: EMS states: BRIGHT RED BLOOD PER RECTUM SINCE WEDNESDAY, H/O bp HEMORRHOIDS. Transition of care: patient was not received from another setting of care. Onset of symptoms is unknown. Risk Assessment: Do you want to hurt yourself or someone else? Patient reports no desire to harm self or others. Initial Sepsis Screen: Does the patient meet any 2 criteria? No. Patient's initial sepsis screen is negative. Does the patient have a suspected source of infection? No. Patient's initial sepsis screen is negative. Care prior to arrival: None. 18:48 Method Of Arrival: EMS: [facility] bp 18:48 Acuity: TALYA 3 bp Triage Assessment: 18:51 General: Appears in no apparent distress. comfortable, Behavior is calm, cooperative, bp appropriate for age. Pain: Denies pain. EENT: No deficits noted. Neuro: Level of Consciousness is awake, alert, obeys commands, Oriented to Appropriate for age. Cardiovascular: No deficits noted. Respiratory: Airway is patent Respiratory effort is even, labored, Respiratory pattern is regular, symmetrical. GI: Reports rectal bleeding. : No signs and/or symptoms were reported regarding the genitourinary system. Derm: No deficits noted. Musculoskeletal: Circulation, motion, and sensation intact. Range of motion: intact in all extremities. Historical: - Allergies: 18:51 Cipro; bp 18:51 Levaquin; bp - Home Meds: 18:51 Mirtazapine Oral [Active]; Nitroglycerin Oral [Active]; Spironolactone Oral 1 tab once bp daily [Active]; Tylenol #3 Oral [Active]; Ursodiol Oral [Active]; - PMHx: 18:51 CHF; COPD; DYSPHAGIA; Hypertension; Myocardial infarction; bp - Immunization history:: Adult Immunizations up to date. - Social history:: Smoking status: Patient/guardian denies using tobacco. - Ebola Screening: : No symptoms or risks identified at this time. Screenin:53 Abuse screen: Denies threats or abuse. Denies injuries from another. Nutritional bp screening: No deficits noted. Tuberculosis screening: No symptoms or risk factors identified. Fall Risk None identified. Assessment: 18:48 General: SEE TRIAGE NOTE. bp 19:46 Reassessment: pt finished oral contrast, CT notified. ak1 23:31 General: Appears in no apparent distress. comfortable, Behavior is calm, cooperative. ak1 Pain: Complains of pain in gluteal cleft and left lower quadrant and right lower quadrant. Neuro: Level of Consciousness is awake, alert, obeys commands, Oriented to person, place, time, situation, Disease And Insect Control Boss are equal bilaterally Moves all extremities. Gait is unsteady, Speech is normal, Facial symmetry appears normal. Cardiovascular: No deficits noted. Respiratory: Airway is patent Respiratory effort is even, unlabored. GI: Abdomen is round non-distended, Rectal exam: Bleeding noted, Hemorrhoids noted, Bowel sounds present X 4 quads. Abd is soft X 4 quads Abdomen is tender to palpation in right lower quadrant and left lower quadrant. : No signs and/or symptoms were reported regarding the genitourinary system. EENT: No signs and/or symptoms were reported regarding the EENT system. Derm: No signs and/or symptoms reported regarding the dermatologic system. Musculoskeletal: No signs and/or symptoms reported regarding the musculoskeletal system. 23:49 Reassessment: pt son Nghia Marquez contacted at [phone] informed of pt ak1 condition and transfer. pt had 2 BM, bright red blood. . Vital Signs: 18:51 BP 128 / 82; Pulse 98; Resp 20; Temp 98; Pulse Ox 97% on 2 lpm NC; Weight 80.29 kg; bp Height 5 ft. 1 in. (154.94 cm); 19:00 BP 135 / 80; Pulse 90; Resp 19 S; Pulse Ox 100% on 2 lpm NC; jd3 20:00 BP 163 / 89; Pulse 80; Resp 19 S; Pulse Ox 100% on 2 lpm NC; jd3 22:00 BP 134 / 63; Pulse 86; Resp 20 S; Pulse Ox 97% on 2 lpm NC; jd3 23:00 BP 117 / 57; Pulse 86; Resp 20 S; Pulse Ox 96% on 2 lpm NC; jd3 18:51 Body Mass Index 33.44 (80.29 kg, 154.94 cm) bp ED Course: 18:48 Patient arrived in ED. bp 18:49 Triage completed. bp 18:51 Arm band placed on. bp 18:53 Patient has correct armband on for positive identification. Bed in low position. Call bp light in reach. Side rails up X2. 19:11 Donato Martinez MD is Attending Physician. seth 19:38 XRAY Chest (1 view) In Process Unspecified. EDMS 19:42 Bailey Mcneil, RN is Primary Nurse. 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 ak1 20:00 Missed attempt(s): 22 gauge in right antecubital area. Bleeding controlled, band aid ak1 applied, catheter tip intact. 20:00 Oxygen administration via nasal cannula \T\ 2L/min. ak1 20:39 Inserted saline lock: 22 gauge in left antecubital area, using aseptic technique. la1 21:18 CT completed. Patient tolerated procedure well. Patient moved back from CT. mw3 21:32 CT Abd/Pelvis - PO and IV Contrast In Process Unspecified. EDMS 23:35 Patient transferred, IV remains in place. ak1 Administered Medications: 21:30 Drug: NS 0.9% 500 ml Route: IV; Rate: bolus; Site: left antecubital; bb 23:29 Follow up: IV Status: Completed infusion; IV Intake: 500ml ak1 21:30 Drug: Xopenex 3.75 mg Route: Inhalation; bb 22:06 Follow up: Response: No adverse reaction; No adverse reaction. pt stated she was ak1 feeling better. 21:30 Drug: AtroVENT Aerosol 0.5 mg Route: Inhalation; bb 22:07 Follow up: Response: No adverse reaction; No adverse reaction. pt stated she is feeling ak1 better. 21:35 Drug: SOLU-Medrol 125 mg Route: IVP; Site: left antecubital; bb 22:06 Follow up: Response: No adverse reaction; Pain is decreased; Other; Other - pt stated ak1 she is feeling better. 21:40 Drug: Rocephin - (cefTRIAXone) 1 grams {Note: given per pharmacy protocol .} Route: bb IVPB; Infused Over: 30 mins; Site: left antecubital; 21:45 Follow up: IV Status: Completed infusion; IV Intake: 10ml bb 22:07 Follow up: IV Status: Completed infusion; IV Intake: 10ml ak1 21:45 Drug: Flagyl 500 mg Volume: 100 ml; Route: IVPB; Rate: 200 ml/hr; Infused Over: 30 bb mins; Site: left antecubital; 23:24 Follow up: IV Status: Completed infusion; IV Intake: 100ml ak1 23:29 Drug: NS 0.9% 1000 ml Route: IV; Rate: 125 ml/hr; Site: left antecubital; ak1 23:52 Follow up: IV Status: Infusion continued upon transfer ak1 Intake: 21:45 IV: 10ml; Total: 10ml. bb 22:07 IV: 10ml; Total: 20ml. ak1 23:24 IV: 100ml; Total: 120ml. ak1 23:29 IV: 500ml; Total: 620ml. ak1 Outcome: 22:07 ER care complete, transfer ordered by . [facility] 23:34 Transferred by ground EMS to [facility], Transfer form completed. ak1 X-rays sent w/ patient. Note: report given to Lolis CAPUTO for room 1035 23:34 Condition: stable 23:34 Instructed on the need for transfer. 09/04 00:07 Patient left the ED. ak1 Signatures: Dispatcher [employer] EDDonato Stafford MD MD cha Ballard, Brenda, RN RN bb Attema, Lee RN RN Bailey Polanco RN RN ak1 Davies, Jonathon, RN RN jd3 Peltier, Brian, RN RN bp Willis, Michelle mw3 Corrections: (The following items were deleted from the chart) 09/03 23:03 19:00 BP 135 / 80; Pulse 90bpm; Resp 19bpm; Spontaneous; Pulse Ox 100% RA; jd3 jd3 23:03 20:00 BP 163 / 89; Pulse 80bpm; Resp 19bpm; Spontaneous; Pulse Ox 100% RA; jbryanna jd3 23:03 22:00 BP 134 / 63; Pulse 86bpm; Resp 20bpm; Spontaneous; Pulse Ox 97% RA; jd3 jd3
--- NOTE | 2018-09-03 22:08 | EDPHYS ---
Physician Documentation [facility] Name: Elida Pradhan Age: 82 yrs Sex: Female : 1935 Arrival Date: 09/03/2018 Time: 18:48 Bed 8 Private MD: ED Physician Donato Martinez HPI: 09/03 20:07 This 82 yrs old Female presents to ER via EMS with complaints of Rectal seth Bleeding. 20:07 The patient presents to the emergency department with bleeding from the rectum/anus, seth that is mild. Onset: The symptoms/episode began/occurred 2 day(s) ago. Context: the patient has no known special context relating to the rectal area complaint(s), has a known history of hemorrhoids. Modifying factors: The symptoms are alleviated by nothing, The symptoms are aggravated by bowel movement, nothing. Associate signs and symptoms: The patient has no apparent associated signs or symptoms. The patient has experienced similar episodes in the past, multiple times. Historical: - Allergies: 18:51 Cipro; bp 18:51 Levaquin; bp - Home Meds: 18:51 Mirtazapine Oral [Active]; Nitroglycerin Oral [Active]; Spironolactone Oral 1 tab once bp daily [Active]; Tylenol #3 Oral [Active]; Ursodiol Oral [Active]; - PMHx: 18:51 CHF; COPD; DYSPHAGIA; Hypertension; Myocardial infarction; bp - Immunization history:: Adult Immunizations up to date. - Social history:: Smoking status: Patient/guardian denies using tobacco. - Ebola Screening: : No symptoms or risks identified at this time. ROS: 20:11 Constitutional: Negative for fever, chills, and weight loss, Eyes: Negative for injury, seth pain, redness, and discharge, ENT: Negative for injury, pain, and discharge, Neck: Negative for injury, pain, and swelling, Cardiovascular: Negative for chest pain, palpitations, and edema, Back: Negative for injury and pain, : Negative for injury, bleeding, discharge, and swelling, MS/Extremity: Negative for injury and deformity, Skin: Negative for injury, rash, and discoloration, Neuro: Negative for headache, weakness, numbness, tingling, and seizure, Psych: Negative for depression, anxiety, suicide ideation, homicidal ideation, and hallucinations, Allergy/Immunology: Negative for hives, rash, and allergies, Endocrine: Negative for neck swelling, polydipsia, polyuria, polyphagia, and marked weight changes, Hematologic/Lymphatic: Negative for swollen nodes, abnormal bleeding, and unusual bruising. 20:11 Respiratory: Positive for shortness of breath, at rest. 20:11 Abdomen/GI: Positive for abdominal pain, rectal bleeding, of the right lower quadrant and left lower quadrant. Exam: 20:11 Constitutional: This is a well developed, well nourished patient who is awake, alert, seth and in no acute distress. Head/Face: Normocephalic, atraumatic. Eyes: Pupils equal round and reactive to light, extra-ocular motions intact. Lids and lashes normal. Conjunctiva and sclera are non-icteric and not injected. Cornea within normal limits. Periorbital areas with no swelling, redness, or edema. ENT: Nares patent. No nasal discharge, no septal abnormalities noted. Tympanic membranes are normal and external auditory canals are clear. Oropharynx with no redness, swelling, or masses, exudates, or evidence of obstruction, uvula midline. Mucous membranes moist. Neck: Trachea midline, no thyromegaly or masses palpated, and no cervical lymphadenopathy. Supple, full range of motion without nuchal rigidity, or vertebral point tenderness. No Meningismus. Chest/axilla: Normal chest wall appearance and motion. Nontender with no deformity. No lesions are appreciated. Cardiovascular: Regular rate and rhythm with a normal S1 and S2. No gallops, murmurs, or rubs. Normal PMI, no JVD. No pulse deficits. Back: No spinal tenderness. No costovertebral tenderness. Full range of motion. Female : Normal external genitalia. Skin: Warm, dry with normal turgor. Normal color with no rashes, no lesions, and no evidence of cellulitis. MS/ Extremity: Pulses equal, no cyanosis. Neurovascular intact. Full, normal range of motion. Neuro: Awake and alert, GCS 15, oriented to person, place, time, and situation. Cranial nerves II-XII grossly intact. Motor strength 5/5 in all extremities. Sensory grossly intact. Cerebellar exam normal. Normal gait. Psych: Awake, alert, with orientation to person, place and time. Behavior, mood, and affect are within normal limits. 20:11 Respiratory: the patient does not display signs of respiratory distress, Respirations: normal, Breath sounds: decreased breath sounds, Respiratory rate: 18 20:11 Abdomen/GI: Inspection: distension, Bowel sounds: normal, Palpation: mild abdominal tenderness, in the right lower quadrant and left lower quadrant, Liver: no appreciated palpable abnormalities, Hernia: not appreciated. Vital Signs: 18:51 BP 128 / 82; Pulse 98; Resp 20; Temp 98; Pulse Ox 97% on 2 lpm NC; Weight 80.29 kg; bp Height 5 ft. 1 in. (154.94 cm); 19:00 BP 135 / 80; Pulse 90; Resp 19 S; Pulse Ox 100% on 2 lpm NC; jd3 20:00 BP 163 / 89; Pulse 80; Resp 19 S; Pulse Ox 100% on 2 lpm NC; jd3 22:00 BP 134 / 63; Pulse 86; Resp 20 S; Pulse Ox 97% on 2 lpm NC; jd3 23:00 BP 117 / 57; Pulse 86; Resp 20 S; Pulse Ox 96% on 2 lpm NC; jd3 18:51 Body Mass Index 33.44 (80.29 kg, 154.94 cm) bp MDM: 19:11 Patient medically screened. [facility] 20:11 Data reviewed: vital signs, nurses notes, lab test result(s), EKG, radiologic studies, [facility] CT scan, plain films. 09/03 19:23 Order name: Basic Metabolic Panel [facility] 09/03 19:23 Order name: CBC with Diff [facility] 09/03 19:23 Order name: LFT's [facility] 09/03 19:23 Order name: Magnesium [facility] 09/03 19:23 Order name: NT PRO-BNP [facility] 09/03 19:23 Order name: PT-INR; Complete Time: 21:09 [facility] 09/03 19:23 Order name: Troponin (emerg Dept Use Only); Complete Time: 21:09 [facility] 09/03 19:23 Order name: Lipase; Complete Time: 21:09 [facility] 09/03 19:26 Order name: Basic Metabolic Panel; Complete Time: 21:09 [facility] 09/03 19:26 Order name: CBC with Automated Diff; Complete Time: 20:42 [facility] 09/03 19:24 Order name: Type And Screen; Complete Time: 21:11 [facility] 09/03 19:26 Order name: Liver (Hepatic) Function; Complete Time: 21:09 [facility] 09/03 19:26 Order name: Magnesium; Complete Time: 21:09 [facility] 09/03 19:26 Order name: NT PRO-BNP; Complete Time: 21:09 [facility] 09/03 19:23 Order name: XRAY Chest (1 view); Complete Time: 20:42 [facility] 09/03 19:23 Order name: EKG; Complete Time: 19:27 [facility] 09/03 19:23 Order name: Cardiac monitoring; Complete Time: 20:08 [facility] 09/03 19:23 Order name: EKG - Nurse/Tech; Complete Time: 20:08 [facility] 09/03 19:23 Order name: IV Saline Lock; Complete Time: 21:50 [facility] 09/03 19:23 Order name: Labs collected and sent; Complete Time: 21:50 [facility] 09/03 19:23 Order name: O2 Per Protocol; Complete Time: 21:50 [facility] 09/03 19:23 Order name: O2 Sat Monitoring; Complete Time: 21:50 [facility] 09/03 19:24 Order name: CT Abd/Pelvis - PO and IV Contrast seth Administered Medications: 21:30 Drug: NS 0.9% 500 ml Route: IV; Rate: bolus; Site: left antecubital; bb 23:29 Follow up: IV Status: Completed infusion; IV Intake: 500ml ak1 21:30 Drug: Xopenex 3.75 mg Route: Inhalation; bb 22:06 Follow up: Response: No adverse reaction; No adverse reaction. pt stated she was ak1 feeling better. 21:30 Drug: AtroVENT Aerosol 0.5 mg Route: Inhalation; bb 22:07 Follow up: Response: No adverse reaction; No adverse reaction. pt stated she is feeling ak1 better. 21:35 Drug: SOLU-Medrol 125 mg Route: IVP; Site: left antecubital; bb 22:06 Follow up: Response: No adverse reaction; Pain is decreased; Other; Other - pt stated ak1 she is feeling better. 21:40 Drug: Rocephin - (cefTRIAXone) 1 grams {Note: given per pharmacy protocol .} Route: bb IVPB; Infused Over: 30 mins; Site: left antecubital; 21:45 Follow up: IV Status: Completed infusion; IV Intake: 10ml bb 22:07 Follow up: IV Status: Completed infusion; IV Intake: 10ml ak1 21:45 Drug: Flagyl 500 mg Volume: 100 ml; Route: IVPB; Rate: 200 ml/hr; Infused Over: 30 bb mins; Site: left antecubital; 23:24 Follow up: IV Status: Completed infusion; IV Intake: 100ml ak1 23:29 Drug: NS 0.9% 1000 ml Route: IV; Rate: 125 ml/hr; Site: left antecubital; ak1 23:52 Follow up: IV Status: Infusion continued upon transfer ak1 Disposition: 09/03/18 22:07 Transfer ordered to [facility]. Diagnosis are Gastrointestinal hemorrhage, unspecified, Chronic obstructive pulmonary disease, unspecified. - Reason for transfer: Higher level of care. - Accepting physician is to [facility]. - Condition is Fair. - Problem is new. - Symptoms have improved. Signatures: Dispatcher [employer] EDMS Donato Martinez MD MD cha Ballard, Brenda, RN RN Bailey Herman RN RN [facility] Ubaldo Delgadillo RN RN bp Corrections: (The following items were deleted from the chart) 09/04 00:07 09/03 22:07 09/03/2018 22:07 Transfer ordered to [facility]. ak1 Diagnosis is Gastrointestinal hemorrhage, unspecified; Chronic obstructive pulmonary disease, unspecified. Reason for transfer: Higher level of care. Accepting physician is to [facility]. Condition is Fair. Problem is new. Symptoms have improved. seth
[2018-09-04 02:23] VITALS: TEMP 98
[2018-09-04 02:28] VITALS: BP 117/57; O2SAT 96
--- NOTE | 2018-09-04 10:34 | EKG ---
Test Date: 2018-09-03 Test Time: 19:54:44 [employer]: CHERYL MEASUREMENT RESULTS: Intervals: Rate: 82 MT: 158 QRSD: 72 QT: 386 QTc: 450 [place]: P: 75 MT: 158 QRS: -2 T: 40 INTERPRETIVE STATEMENTS: Normal sinus rhythm normal ECG Compared to ECG 06/22/2018 14:27:06 Prolonged QT interval no longer present Electronically Signed On 09-04-18 10:33:50 CDT by Paul Hoffman
--- NOTE | 2018-09-05 11:53 | RAD REPORT ---
EXAM DESCRIPTION: CT - Abdomen Pelvis W Contrast - 09/03/2018 9:30 pm CLINICAL HISTORY: The patient is 82 years old and is Female; ABD PAIN TECHNIQUE: Axial computed tomography images of the abdomen and pelvis with intravenous contrast. S agittal and coronal reformatted images were created and reviewed. This CT exam was performed using one or more of the following dose reduction techniques: automated exposure control, adjustment of t he mA and/or kV according to patient size, and/or use of iterative reconstruction technique. COMPARISON: None. FINDINGS: LUNG BASES: Bibasilar chronic lung changes. ABDOMEN: LIVER: Bilateral thickening. There is advanced extrahepatic ductal dilatation measuring up to 1.2 cm in the region of the pancreatic head. GALLBLADDER AND BILE DUCTS: See above. PANCREAS: See above. SPLEEN: Unremarkable. No splenomegaly. ADRENALS: Unremarkable. No mass. KIDNEYS AND URETERS: Bilateral subcentimeter renal hypodensities, likely cysts. No hydronephrosis. STOMACH AND BOWEL: Enteric contrast in the stomach and throughout the small and large bowel. Sigmoid diverticulosis without CT evidence of acute diverticulitis. PELVIS: APPENDIX: The appendix is seen and is within normal limits. BLADDER: Mild thickening of the bladder wall. REPRODUCTIVE: Unremarkable as visualized. ABDOMEN and PELVIS: INTRAPERITONEAL SPACE: Unremarkable. No free air. No significant fluid collection. BONES/JOINTS: Advanced diffuse osteopenia. No acute fracture. No dislocation. SOFT TISSUES: Unremarkable. VASCULATURE: Atherosclerotic vascular disease. No abdominal aortic aneurysm. LYMPH NODES: Unremarkable. No enlarged lymph nodes. IMPRESSION: 1. No acute abdominal or pelvic abnormality. 2. Contracted gallbladder with wall thickening, mild intrahepatic ductal dilatation and advanced pr ominence of the CBD measuring 1.2 cm. MRCP may be of diagnostic use is clinically indicated. 3. Sigmoid diverticulosis without CT evidence of acute diverticulitis. 4. Bilateral subcentimeter renal cysts. 5. Atherosclerotic calcifications. 6. Advanced osteopenia and multilevel degenerative changes. Electronically signed by: Romulo Saunders DO 09/03/2018 10:03 PM CDT Due to temporary technical issues with the PACS/Fluency reporting system, reports are being signed by the in house radiologist as a courtesy to ensure prompt reporting. The interpreting radiologist is f ully responsible for the content of the report.
== END 2018-09-04 00:07 | disposition short-term general hospital (02) ==
LOC: ER 18:42
DX: J44.9 Chronic obstructive pulmonary disease, unspecified (principal); I10 Essential (primary) hypertension; I50.9 Heart failure, unspecified; I25.2 Old myocardial infarction; Z88.1 Allergy status to other antibiotic agents
CPT/HCPCS: 96365; 96361; 93005; 85025; 80048; 36415; 86900; 83735; 86850; 85610; 86901; 80076; 84484; 83690; 83880; 74177; 71045; 96375; 99285; 96366; Q9967; J0696; J7030; J2930

== ENCOUNTER 2018-10-28 10:31 | Emergency (ER) | payer MEDICARE ==
--- OUTSIDE RECORDS SUMMARY | 2018-10-28 10:37 | XMS REPORT | Clinical Summary ---
:1935 Author Organization [facility] Address [address] [place] [address] Care Team Providers Name Role Phone Les Slade Bobo Unavailable Allergies Active Allergy Reactions Severity Noted Date Comments Ciprofloxacin 09/04/2018 Levofloxacin Nausea And Vomiting 11/06/2016 Medications Medication Sig Dispensed Refills Start Date End Date Status albuterol HFA Inhale 2 puffs 0 Active (PROAIR HFA) 90 by mouth via mcg/actuation inhaler every 6 inhaler (six) hours as needed for Wheezing. HYDROcodone-acetami Take 1 tablet 0 Active nophen (NORCO by mouth 2 5-325) 5-325 mg per (two) times tablet daily as needed for Pain. diazePAM (VALIUM) 5 Take 5 mg by 0 Active MG tablet mouth 2 (two) times daily as needed for Anxiety. mirtazapine Take 15 mg by 0 Active (REMERON) 15 MG mouth nightly. tablet venlafaxine Take 75 mg by 0 Active (EFFEXOR-XR) 75 MG mouth daily. 24 hr capsule predniSONE Take 5 mg by 0 Active (DELTASONE) 5 MG mouth daily. tablet clotrimazole-betame Apply topically 0 Active thasone (LOTRISONE) 2 (two) times 1-0.05 % cream daily. methIMAzole Take 1.5 0 01/13/2017 Active (TAPAZOLE) 10 MG tablets (15 mg tablet total) by mouth daily. metoprolol Take 2 tablets 0 01/13/2017 Active (LOPRESSOR) 25 MG (50 mg total) tablet by mouth 2 (two) times daily. spironolactone-hydr Take 1 tablet 0 01/13/2017 Active oCHLOROthiazide by mouth daily. (ALDACTAZIDE) 25-25 mg per tablet acetaminophen-codei Take 1 tablet 0 Active ne (TYLENOL #3) by mouth every 300-30 mg per 4 (four) hours tablet as needed for Pain. NITROGLYCERIN ORAL Take by mouth. 0 Active apixaban (ELIQUIS) Take 1 tablet 60 tablet 1 09/05/2018 Active 2.5 mg Tab tablet (2.5 mg total) by mouth 2 (two) times daily. umeclidinium-vilant Inhale 1 puff 0 Discontinued sanju (ANORO by mouth via 9 ELLIPTA) 62.5-25 inhaler daily. mcg/actuation DsDv aspirin 81 MG EC Take 1 tablet 0 01/14/2017 tablet (81 mg total) 8 by mouth daily. URSODIOL ORAL Take by mouth. 0 Discontinued 9 Active Problems Problem Noted Date GIB (gastrointestinal bleeding) 09/04/2018 Acute cystitis without hematuria 01/10/2017 TIA (transient ischemic attack) 01/09/2017 Uncontrolled hypertension 01/09/2017 Hyperthyroidism 01/09/2017 COPD (chronic obstructive pulmonary disease) 01/09/2017 Coronary artery disease 01/09/2017 Headache 01/09/2017 Leukocytosis 01/09/2017 Word finding difficulty 01/09/2017 Encounters Date Type Specialty Care Team Description 09/04/2018 [facility] Cardiology Sunil South Gastrointestinal hemorrhage associated with anorectal source; - Encounter MD Paul Acute blood loss anemia; 09/05/2018 Sofía Vazquez, Hematochezia; Diverticulosis; Racheal Lowery, Chronic diarrhea; Chronic bronchitis, unspecified chronic bronchitis type (HCC); Current use of prison anticoagulation 09/04/2018 Travel 09/03/2018 Telephone Gastroenterology Sue Shah Rectal Bleeding MD Renuka after 10/27/2017 Immunizations Name Dates Previously Given Next Due [...] travel history available. Last Filed Vital Signs Vital Sign Reading Time Taken Blood Pressure 125/60 09/05/2018 3:27 PM CDT Pulse 78 09/05/2018 7:49 PM CDT Temperature 36.7 C (98 F) 09/05/2018 3:27 PM CDT Respiratory Rate 18 09/05/2018 7:49 PM CDT Oxygen Saturation 99% 09/05/2018 7:49 PM CDT Inhaled Oxygen Concentration - - Weight 73.8 kg (162 lb 11.2 oz) 09/05/2018 9:00 AM CDT Height 154.9 cm (5' 1") 09/04/2018 2:00 AM CDT Body Mass Index 30.74 09/05/2018 9:00 AM CDT Plan of Treatment Not on file Procedures Procedure Name Priority Date/Time Associated Comments Diagnosis RHYTHM STRIP - SCAN 09/07/2018 10:30 AM CDT RHYTHM STRIP - SCAN 09/07/2018 10:22 AM CDT TRANSFUSION SERVICE REPORT 09/05/2018 6:00 - SCAN PM CDT CBC (HEMOGRAM ONLY) Routine 09/05/2018 5:01 Results for this AM CDT procedure are in the results section. BASIC METABOLIC PANEL (7) Routine 09/05/2018 5:00 Results for this AM CDT procedure are in the results section. ABORH, MANUAL STAT 09/04/2018 7:17 Results for this PM CDT procedure are in the results section. THROMBOELASTOGRAPH (TEG) Routine 09/04/2018 7:17 Results for this PM CDT procedure are in the results section. TYPE AND SCREEN, AUTOMATED Routine 09/04/2018 6:36 Results for this PM CDT procedure are in the results section. HEMOGLOBIN AND HEMATOCRIT STAT 09/04/2018 6:36 Results for this PM CDT procedure are in the results section. HEMOGLOBIN AND HEMATOCRIT Routine 09/04/2018 4:49 Results for this PM CDT procedure are in the results section. T4, FREE Routine 09/04/2018 12:22 Results for this PM CDT procedure are in the results section. TSH/FREE T4 IF INDICATED Routine 09/04/2018 12:22 Results for this PM CDT procedure are in the results section. CBC (HEMOGRAM ONLY) Routine 09/04/2018 10:57 Results for this AM CDT procedure are in the results section. CBC (HEMOGRAM ONLY) Routine 09/04/2018 3:58 Results for this AM CDT procedure are in the results section. HEPATIC FUNCTION PANEL Routine 09/04/2018 3:58 Results for this AM CDT procedure are in the results section. PT/APTT Routine 09/04/2018 3:58 Results for this AM CDT procedure are in the results section. MAGNESIUM Routine 09/04/2018 3:58 Results for this AM CDT procedure are in the results section. BASIC METABOLIC PANEL (7) Routine 09/04/2018 3:58 Results for this AM CDT procedure are in the results section. after 10/27/2017 Results RHYTHM STRIP - SCAN (09/07/2018 10:30 AM CDT)Only the most recent of2 resultswithin the time period is included. Narrative Performed At TRANSFUSION SERVICE REPORT - SCAN (09/05/2018 6:00 PM CDT) Narrative Performed At CBC (Hemogram only) (09/05/2018 5:01 AM CDT)Only the most recent of3 resultswithin the time period is included. WBC 14.3 (H) 3.5 - 10.5 K/L [facility] RBC 3.26 (L) 3.93 - 5.22 M/L [facility] Hemoglobin 9.0 (L) 11.2 - 15.7 GM/DL [facility] Hematocrit 29.6 (L) 34.1 - 44.9 % [facility] MCV 90.8 79.4 - 94.8 fL [facility] MCH 27.6 25.6 - 32.2 pg [facility] MCHC 30.4 (L) 32.2 - 35.5 GM/DL [facility] RDW 12.7 11.7 - 14.4 % [facility] Platelets 302 150 - 450 K/CU MM [facility] MPV 10.7 9.4 - 12.3 fL [facility] nRBC 0 0 - 0 /100 WBC [facility] Specimen Blood Performing Organization Address City/State/Zipcode Phone Number [address] [address] [phone] [place] Basic metabolic panel (09/05/2018 5:00 AM CDT)Only the most recent of2 resultswithin the time period is included. Sodium 139 136 - 145 meq/L [facility] Potassium 4.3 3.5 - 5.1 meq/L [facility] Chloride 97 (L) 98 - 107 meq/L [facility] CO2 34 (H) 22 - 29 meq/L [facility] BUN 16 7 - 21 mg/dL [facility] Creatinine 0.81 0.57 - 1.25 mg/dL [facility] Glucose 126 (H) 70 - 105 mg/dL [facility] Calcium 9.8 8.4 - 10.2 mg/dL [facility] EGFR 67Comment: ESTIMATED GFR IS mL/min/1.73 sq m [facility] NOT ACCURATE CREATININE [facility] CENTER CLEARANCE IN PREDICTING GLOMERULAR FILTRATION RATE. ESTIMATED GFR IS NOT APPLICABLE FOR DIALYSIS PATIENTS. Specimen Blood Performing Organization Address City/[facility] Phone Number [address] [address] CENTER destinee CUTLER (09/04/2018 7:17 PM CDT) ABO Grouping B [facility] Rh Factor POS [facility] Specimen Blood Performing Organization Address City/State/Zipcode Phone Number [place] [phone] [place] [address] Thromboelastograph (TEG) (09/04/2018 7:17 PM CDT) TEG Activated Clotting Time 4.5 4.0 - 7.0 minutes [facility] TEG Fibrinogen Activity 78.3 (H) 61.0 - 73.0 degrees [facility] TEG Platelet Aggregation 71.4 (H) 55.0 - 65.0 MM [facility] TEG Fibrinolysis 1.0 0.0 - 5.0 % [facility] TEG-H Activated Clotting Time 4.5 4.0 - 7.0 minutes [facility] TEG-H Fibrinogen Activity 75.3 (H) 61.0 - 73.0 degrees [facility] TEG-H Platelet Aggregation 62.9 55.0 - 65.0 MM [facility] TEG-H Fibrinolysis 2.2 0.0 - 5.0 % [facility] Specimen Blood Performing Organization Address City/[facility] Phone Number [address] [address] [phone] CENTER Type and screen, automated (09/04/2018 6:36 PM CDT) ABO/RH AUTOMATED (BEAKER) B POSITIVE [facility] Ab Scrn NEGATIVE [facility] Specimen Blood Performing Organization Address City/[facility] Phone Number [address] [address] [phone] Hemoglobin and hematocrit (09/04/2018 6:36 PM CDT)Only the most recent of2 resultswithin the time period is included. Hemoglobin 8.6 (L) 11.2 - 15.7 GM/DL [facility] Hematocrit 27.7 (L) 34.1 - 44.9 % [facility] Specimen Blood Performing Organization Address City/[facility] Phone Number [address] [address] [phone] CENTER TSH/Free T4 If Indicated (09/04/2018 12:22 PM CDT) TSH 0.01 (L) 0.35 - 4.94 uIU/mL [facility] Specimen Blood Performing Organization Address [facility] Phone Number [address] [address] CENTER T4, free (09/04/2018 12:22 PM CDT) Free T4 1.14 0.70 - 1.48 ng/dL [facility] Specimen Blood Performing Organization Address [facility] Phone Number [address] [address] [phone] CENTER PT/aPTT (09/04/2018 3:58 AM CDT) Protime 15.4 (H) 11.9 - 14.2 seconds [facility] INR 1.3 <=5.9 [facility] PTT 38.0 (H) 22.5 - 36.0 seconds [facility] Specimen Blood Narrative Performed At Effective 08/17/2018: PT Reference Range [facility] Change New: 11.9-14.2Previous: 11.7-14.7 RECOMMENDED COUMADIN/WARFARIN INR THERAPY RANGES STANDARD DOSE: 2.0-3.0Includes: PROPHYLAXIS for venous thrombosis, systemic embolization; TREATMENT for venous thrombosis and/or pulmonary embolus. HIGH RISK: Target INR is 2.5-3.5 for patients wiht mechanical heart valves. Performing Organization Address [facility] Phone Number [address] [address] CENTER Magnesium (09/04/2018 3:58 AM CDT) Magnesium 1.8 1.6 - 2.6 mg/dL [facility] Specimen Blood Performing Organization Address [facility] Phone Number [address] [address] CENTER Hepatic function panel (09/04/2018 3:58 AM CDT) Protein, Total 7.7 6.0 - 8.3 gm/dL [facility] Albumin 3.5 3.5 - 5.0 g/dL [facility] Total Bilirubin 0.3 0.2 - 1.2 mg/dL [facility] Bilirubin, Direct 0.2 0.1 - 0.5 mg/dL [facility] Alkaline Phosphatase 72 40 - 150 U/L [facility] AST 16 5 - 34 U/L [facility] ALT 10 6 - 55 U/L [facility] Specimen Blood Performing Organization Address City/State/Zipcode Phone Number [facility] [address] [place] [address] [phone] CENTER after 10/27/2017 Insurance Payer Benefit Plan / Group Subscriber ID Type Phone Address MEDICARE MEDICARE A B xxxxxxxxxxx Medicare MCR SUPPLEMENT/INDIVIDUAL [employer]/[facility] xxxxxxxxxxx [address]en (Home) [address] [place] [address] Advance Directives For more information, please contact:[address] [phone] Code Status Date Activated Date Inactivated Comments Full Code 09/04/2018 3:16 AM 09/06/2018 12:11 AM This code status was determined by: Patient Full Code 01/09/2017 3:57 AM 01/13/2017 2:09 PM This code status was determined by: Patient
--- OUTSIDE RECORDS SUMMARY | 2018-10-28 10:38 | XMS REPORT ---
:1935 [facility] P[facility] sale to [facility] [address] [place] [address] [place] [id number] Care Team Providers Name Role Phone CHADJI MADELINE Unavailable Unavailable DOWELL HAILEE Unavailable Unavailable Problems This patient has no known problems. Allergies, Adverse Reactions, Alerts This patient has no known allergies or adverse reactions. Medications This patient has no known medications. Results Test Description Test Time Test Comments Text Results Atomic Results Result Comments BASIC METABOLIC PANEL 2018-09-05 05:58:00 Test Item Value Reference Range Comments SODIUM (BEAKER) (test 139 meq/L 136-145 sgkc=616) POTASSIUM (BEAKER) (test 4.3 meq/L 3.5-5.1 slrf=920) CHLORIDE (BEAKER) (test 97 meq/L 98-107 pnik=472) CO2 (BEAKER) (test mzfb=643) 34 meq/L 22-29 BLOOD UREA NITROGEN (BEAKER) 16 mg/dL 7-21 (test inad=309) CREATININE (BEAKER) (test 0.81 mg/dL 0.57-1.25 lwqc=512) GLUCOSE RANDOM (BEAKER) 126 mg/dL 70-105 (test msrn=817) CALCIUM (BEAKER) (test 9.8 mg/dL 8.4-10.2 hggg=500) EGFR (BEAKER) (test 67 mL/min/1.73 sq m ESTIMATED GFR IS NOT wibe=9792) ACCURATE CREATININE CLEARANCE IN PREDICTING GLOMERULAR FILTRATION RATE. ESTIMATED GFR IS NOT APPLICABLE FOR DIALYSIS PATIENTS. CBC (HEMOGRAM ONLY)2018-09-05 05:33:00 Test Item Value Reference Range Comments WHITE BLOOD CELL COUNT (BEAKER) (test ztls=792) 14.3 K/ L 3.5-10.5 RED BLOOD CELL COUNT (BEAKER) (test yxrp=519) 3.26 M/ L 3.93-5.22 HEMOGLOBIN (BEAKER) (test noug=246) 9.0 GM/DL 11.2-15.7 HEMATOCRIT (BEAKER) (test cbjl=825) 29.6 % 34.1-44.9 MEAN CORPUSCULAR VOLUME (BEAKER) (test ussv=576) 90.8 fL 79.4-94.8 MEAN CORPUSCULAR HEMOGLOBIN (BEAKER) (test 27.6 pg 25.6-32.2 plxc=306) MEAN CORPUSCULAR HEMOGLOBIN CONC (BEAKER) (test 30.4 GM/DL 32.2-35.5 rllh=022) RED CELL DISTRIBUTION WIDTH (BEAKER) (test 12.7 % 11.7-14.4 igsn=072) PLATELET COUNT (BEAKER) (test ojqk=509) 302 K/CU MM 150-450 MEAN PLATELET VOLUME (BEAKER) (test lkmk=765) 10.7 fL 9.4-12.3 NUCLEATED RED BLOOD CELLS (BEAKER) (test 0 /100 WBC 0-0 pdjt=893) THROMBOELASTOGRAPH (TEG)2018-09-04 20:35:00 Test Item Value Reference Range Comments TEG ACTIVATED CLOTTING TIME (BEAKER) (test 4.5 minutes 4.0-7.0 qikh=0113) TEG FIBRINOGEN ACTIVITY (BEAKER) (test 78.3 degrees 61.0-73.0 dtek=5672) TEG PLT. AGGREGATION (BEAKER) (test aikc=1130) 71.4 MM 55.0-65.0 TEG FIBRINOLYSIS (BEAKER) (test pdjf=1634) 1.0 % 0.0-5.0 TGH ACTIVATED CLOTTING TIME (BEAKER) (test 4.5 minutes 4.0-7.0 cjll=1876) TGH FIBRINOGEN ACTIVITY (BEAKER) (test 75.3 degrees 61.0-73.0 ccoa=6117) TGH PLT. AGGREGATION (BEAKER) (test sxue=0006) 62.9 MM 55.0-65.0 TGH FIBRINOLYSIS (BEAKER) (test btiy=3943) 2.2 % 0.0-5.0 HEMOGLOBIN AND [id number] 18:46:00 Test Item Value Reference Range Comments HEMOGLOBIN (BEAKER) (test ghgm=358) 8.6 GM/DL 11.2-15.7 HEMATOCRIT (BEAKER) (test oejb=358) 27.7 % 34.1-44.9 HEMOGLOBIN AND [id number] 17:10:00 Test Item Value Reference Range Comments HEMOGLOBIN (BEAKER) (test ckbd=759) 7.6 GM/DL 11.2-15.7 HEMATOCRIT (BEAKER) (test wkuu=988) 24.4 % 34.1-44.9 T4, [id number] 14:16:00 Test Item Value Reference Range Comments FREE T4 (BEAKER) (test jdrm=678) 1.14 ng/dL 0.70-1.48 TSH/FREE T4 IF [id number] 13:15:00 Test Item Value Reference Range Comments THYROID STIMULATING HORMONE (BEAKER) (test 0.01 uIU/mL 0.35-4.94 bwli=803) CBC (HEMOGRAM ONLY)2018-09-04 11:11:00 Test Item Value Reference Range Comments WHITE BLOOD CELL COUNT (BEAKER) (test noni=183) 7.7 K/ L 3.5-10.5 RED BLOOD CELL COUNT (BEAKER) (test egjr=628) 3.31 M/ L 3.93-5.22 HEMOGLOBIN (BEAKER) (test vzcs=753) 9.0 GM/DL 11.2-15.7 HEMATOCRIT (BEAKER) (test vwpm=139) 29.7 % 34.1-44.9 MEAN CORPUSCULAR VOLUME (BEAKER) (test lwes=273) 89.7 fL 79.4-94.8 MEAN CORPUSCULAR HEMOGLOBIN (BEAKER) (test 27.2 pg 25.6-32.2 ljjw=964) MEAN CORPUSCULAR HEMOGLOBIN CONC (BEAKER) (test 30.3 GM/DL 32.2-35.5 nxxk=333) RED CELL DISTRIBUTION WIDTH (BEAKER) (test 12.5 % 11.7-14.4 eafh=978) PLATELET COUNT (BEAKER) (test louj=607) 292 K/CU MM 150-450 MEAN PLATELET VOLUME (BEAKER) (test xadd=693) 10.5 fL 9.4-12.3 NUCLEATED RED BLOOD CELLS (BEAKER) (test 0 /100 WBC 0-0 smdr=183) [id number] 04:37:00 Test Item Value Reference Range Comments MAGNESIUM (BEAKER) (test rpud=461) 1.8 mg/dL 1.6-2.6 BASIC METABOLIC [id number] 04:37:00 Test Item Value Reference Range Comments SODIUM (BEAKER) (test 137 meq/L 136-145 yody=695) POTASSIUM (BEAKER) (test 4.4 meq/L 3.5-5.1 etch=327) CHLORIDE (BEAKER) (test 94 meq/L 98-107 ahzw=904) CO2 (BEAKER) (test 35 meq/L 22-29 cnoe=369) BLOOD UREA NITROGEN 14 mg/dL 7-21 (BEAKER) (test dthr=767) CREATININE (BEAKER) (test 0.88 mg/dL 0.57-1.25 bdne=931) GLUCOSE RANDOM (BEAKER) 183 mg/dL 70-105 (test ntyr=500) CALCIUM (BEAKER) (test 9.2 mg/dL 8.4-10.2 apri=987) EGFR (BEAKER) (test 61 mL/min/1.73 sq m ESTIMATED GFR IS NOT jcgw=6160) ACCURATE CREATININE CLEARANCE IN PREDICTING GLOMERULAR FILTRATION RATE. ESTIMATED GFR IS NOT APPLICABLE FOR DIALYSIS PATIENTS. HEPATIC FUNCTION [id number] 04:37:00 Test Item Value Reference Range Comments TOTAL PROTEIN (BEAKER) (test tbnx=432) 7.7 gm/dL 6.0-8.3 ALBUMIN (BEAKER) (test xoug=2601) 3.5 g/dL 3.5-5.0 BILIRUBIN TOTAL (BEAKER) (test ehhm=343) 0.3 mg/dL 0.2-1.2 BILIRUBIN DIRECT (BEAKER) (test fpms=493) 0.2 mg/dL 0.1-0.5 ALKALINE PHOSPHATASE (BEAKER) (test kjlv=231) 72 U/L 40-150 AST (SGOT) (BEAKER) (test dxth=147) 16 U/L 5-34 ALT (SGPT) (BEAKER) (test aepi=048) 10 U/L 6-55 [id number] 04:33:00 Test Item Value Reference Range Comments PROTIME (BEAKER) (test ddej=409) 15.4 seconds 11.9-14.2 INR (BEAKER) (test wqov=998) 1.3 <=5.9 PARTIAL THROMBOPLASTIN TIME (BEAKER) (test 38.0 seconds 22.5-36.0 xfqm=321) Effective 08/17/2018: PT Reference Range ChangeNew: 11.9-14.2 Previous: 11.7- 14.7RECOMMENDED COUMADIN/WARFARIN INR THERAPY RANGESSTANDARD DOSE: 2.0-3.0 Includes: PROPHYLAXIS for venous thrombosis, systemic embolization; TREATMENT for venous thrombosis and/or pulmonary embolus.HIGH RISK: Target INR is2.5-3.5 for patients wiht mechanical heart valves.CBC (HEMOGRAM ONLY)2018-09-04 04:11:00 Test Item Value Reference Range Comments WHITE BLOOD CELL COUNT (BEAKER) (test kiji=688) 10.9 K/ L 3.5-10.5 RED BLOOD CELL COUNT (BEAKER) (test lipg=750) 3.79 M/ L 3.93-5.22 HEMOGLOBIN (BEAKER) (test dqbt=801) 10.5 GM/DL 11.2-15.7 HEMATOCRIT (BEAKER) (test crjj=058) 34.3 % 34.1-44.9 MEAN CORPUSCULAR VOLUME (BEAKER) (test xhnt=896) 90.5 fL 79.4-94.8 MEAN CORPUSCULAR HEMOGLOBIN (BEAKER) (test 27.7 pg 25.6-32.2 rtje=777) MEAN CORPUSCULAR HEMOGLOBIN CONC (BEAKER) (test 30.6 GM/DL 32.2-35.5 cnax=922) RED CELL DISTRIBUTION WIDTH (BEAKER) (test 12.5 % 11.7-14.4 ehmd=150) PLATELET COUNT (BEAKER) (test elrf=557) 322 K/CU MM 150-450 MEAN PLATELET VOLUME (BEAKER) (test vxpv=929) 10.3 fL 9.4-12.3 NUCLEATED RED BLOOD CELLS (BEAKER) (test 0 /100 WBC 0-0 carv=524) BLOOD [id number] 00:00:00 Test Item Value Reference Range Comments CULTURE (BEAKER) (test mywu=3534) No growth in 5 days BLOOD [id number] 00:00:00 Test Item Value Reference Range Comments CULTURE (BEAKER) (test dnho=5757) No growth in 5 days CLOSTRIDIUM DIFFICILE TOXIN [id number] 17:09:00 Test Item Value Reference Range Comments CLOSTRIDIUM DIFFICILE TOXIN, PCR (BEAKER) (test Not Detected Not Detected nxpt=6491) This qualitative real-time polymerase chain reaction assay [...] a positive result is not recommended.BASIC METABOLIC [id number] 10:06:00 Test Item Value Reference Range Comments SODIUM (BEAKER) (test 138 meq/L 136-145 djvg=390) POTASSIUM (BEAKER) (test 4.2 meq/L 3.5-5.1 Specimen slightly tgia=409) hemolyzed CHLORIDE (BEAKER) (test 104 meq/L 98-107 dmsc=181) CO2 (BEAKER) (test 24 meq/L 22-29 ysuu=648) BLOOD UREA NITROGEN 26 mg/dL 7-21 (BEAKER) (test rpwa=788) CREATININE (BEAKER) (test 0.94 mg/dL 0.57-1.25 Specimen slightly bodz=654) hemolyzed GLUCOSE RANDOM (BEAKER) 100 mg/dL 70-105 (test mjnz=178) CALCIUM (BEAKER) (test 8.8 mg/dL 8.4-10.2 xmsq=995) EGFR (BEAKER) (test 57 mL/min/1.73 sq m ESTIMATED GFR IS NOT ozqw=0931) ACCURATE CREATININE CLEARANCE IN PREDICTING GLOMERULAR FILTRATION RATE. ESTIMATED GFR IS NOT APPLICABLE FOR DIALYSIS PATIENTS. CBC W/PLT COUNT & AUTO [id number] 09:48:00 Test Item Value Reference Range Comments WHITE BLOOD CELL COUNT 12.9 K/ L 3.5-10.5 (BEAKER) (test ahno=375) RED BLOOD CELL COUNT (BEAKER) 4.59 M/ L 3.93-5.22 (test uudc=012) HEMOGLOBIN (BEAKER) (test 13.4 GM/DL 11.2-15.7 igut=000) HEMATOCRIT (BEAKER) (test 43.1 % 34.1-44.9 zfim=443) MEAN CORPUSCULAR VOLUME 93.9 fL 79.4-94.8 (BEAKER) (test gknk=603) MEAN CORPUSCULAR HEMOGLOBIN 29.2 pg 25.6-32.2 (BEAKER) (test nlnt=299) MEAN CORPUSCULAR HEMOGLOBIN 31.1 GM/DL 32.2-35.5 CONC (BEAKER) (test osxv=317) RED CELL DISTRIBUTION WIDTH 12.8 % 11.7-14.4 (BEAKER) (test myit=331) PLATELET COUNT (BEAKER) (test 286 K/CU MM 150-450 .Discordant from previous anhi=350) results. Clinical correlation suggested. MEAN PLATELET VOLUME (BEAKER) 10.3 fL 9.4-12.3 (test swkv=903) NUCLEATED RED BLOOD CELLS 0 /100 WBC 0-0 (BEAKER) (test zobx=221) NEUTROPHILS RELATIVE PERCENT 70 % (BEAKER) (test yofo=721) LYMPHOCYTES RELATIVE PERCENT 17 % (BEAKER) (test muvh=678) MONOCYTES RELATIVE PERCENT 8 % (BEAKER) (test ecnz=517) EOSINOPHILS RELATIVE PERCENT 3 % (BEAKER) (test zdav=249) BASOPHILS RELATIVE PERCENT 1 % (BEAKER) (test ixlf=925) NEUTROPHILS ABSOLUTE COUNT 9.04 K/ L 1.56-6.13 (BEAKER) (test hhrr=095) LYMPHOCYTES ABSOLUTE COUNT 2.22 K/ L 1.18-3.74 (BEAKER) (test xdnm=411) MONOCYTES ABSOLUTE COUNT 0.99 K/ L 0.24-0.36 (BEAKER) (test xkdw=545) EOSINOPHILS ABSOLUTE COUNT 0.32 K/ L 0.04-0.36 (BEAKER) (test oqvz=138) BASOPHILS ABSOLUTE COUNT 0.15 K/ L 0.01-0.08 (BEAKER) (test doqj=929) IMMATURE 1 % 0-1 GRANULOCYTES-RELATIVE PERCENT (BEAKER) (test dsbw=1186) RAD, FOOT, 2 VIEWS, [id number] 16:52:00Reason for exam:->pain with ambulationFINAL REPORT Radiograph [...] abnormality identified. Decreased bony mineralization. Osteoarthritis.Signed: Ting [place] Verified Date/Time: 01/12/2017 16:52:45 Reading Location: [facility] C013 Consult Reading Room T4, [id number] 16:26:00 Test Item Value Reference Range Comments FREE T4 (BEAKER) (test vkzn=014) 1.12 ng/dL 0.70-1.48 TSH/FREE T4 IF [id number] 15:46:00 Test Item Value Reference Range Comments THYROID STIMULATING HORMONE (BEAKER) (test 0.03 uIU/mL 0.35-4.94 bnga=249) BASIC METABOLIC [id number] 15:35:00 Test Item Value Reference Range Comments SODIUM (BEAKER) (test 136 meq/L 136-145 rxon=479) POTASSIUM (BEAKER) (test 4.1 meq/L 3.5-5.1 ziah=191) CHLORIDE (BEAKER) (test 99 meq/L 98-107 tyjv=880) CO2 (BEAKER) (test 24 meq/L 22-29 xjoq=113) BLOOD UREA NITROGEN 32 mg/dL 7-21 (BEAKER) (test klhq=933) CREATININE (BEAKER) (test 1.12 mg/dL 0.57-1.25 jfzm=030) GLUCOSE RANDOM (BEAKER) 164 mg/dL 70-105 (test bxrx=462) CALCIUM (BEAKER) (test 10.2 mg/dL 8.4-10.2 hjdw=731) EGFR (BEAKER) (test 46 mL/min/1.73 sq m ESTIMATED GFR IS NOT vysz=2123) ACCURATE CREATININE CLEARANCE IN PREDICTING GLOMERULAR FILTRATION RATE. ESTIMATED GFR IS NOT APPLICABLE FOR DIALYSIS PATIENTS. CBC W/PLT COUNT & AUTO [id number] 15:06:00 Test Item Value Reference Range Comments WHITE BLOOD CELL COUNT (BEAKER) (test txuf=162) 17.4 K/ L 3.5-10.5 RED BLOOD CELL COUNT (BEAKER) (test jadq=806) 4.93 M/ L 3.93-5.22 HEMOGLOBIN (BEAKER) (test vmpm=123) 14.0 GM/DL 11.2-15.7 HEMATOCRIT (BEAKER) (test jdsg=352) 44.8 % 34.1-44.9 MEAN CORPUSCULAR VOLUME (BEAKER) (test ukga=798) 90.9 fL 79.4-94.8 MEAN CORPUSCULAR HEMOGLOBIN (BEAKER) (test 28.4 pg 25.6-32.2 llqy=130) MEAN CORPUSCULAR HEMOGLOBIN CONC (BEAKER) (test 31.3 GM/DL 32.2-35.5 wxqv=824) RED CELL DISTRIBUTION WIDTH (BEAKER) (test 12.9 % 11.7-14.4 ijzy=080) PLATELET COUNT (BEAKER) (test ygbj=309) 360 K/CU MM 150-450 MEAN PLATELET VOLUME (BEAKER) (test vpmc=576) 10.5 fL 9.4-12.3 NUCLEATED RED BLOOD CELLS (BEAKER) (test 0 /100 WBC 0-0 axzo=405) NEUTROPHILS RELATIVE PERCENT (BEAKER) (test 82 % oyak=564) LYMPHOCYTES RELATIVE PERCENT (BEAKER) (test 11 % aajc=482) MONOCYTES RELATIVE PERCENT (BEAKER) (test 4 % sedz=284) EOSINOPHILS RELATIVE PERCENT (BEAKER) (test 0 % emev=131) BASOPHILS RELATIVE PERCENT (BEAKER) (test 1 % zjrw=778) NEUTROPHILS ABSOLUTE COUNT (BEAKER) (test 14.33 K/ L 1.56-6.13 vowk=162) LYMPHOCYTES ABSOLUTE COUNT (BEAKER) (test 1.97 K/ L 1.18-3.74 xzwe=906) MONOCYTES ABSOLUTE COUNT (BEAKER) (test 0.71 K/ L 0.24-0.36 ivyj=231) EOSINOPHILS ABSOLUTE COUNT (BEAKER) (test 0.05 K/ L 0.04-0.36 jwks=654) BASOPHILS ABSOLUTE COUNT (BEAKER) (test 0.16 K/ L 0.01-0.08 fwra=012) IMMATURE GRANULOCYTES-RELATIVE PERCENT (BEAKER) 1 % 0-1 (test ihsf=4822) URINE [id number] 08:21:00 Test Item Value Reference Range Comments CULTURE (BEAKER) (test acal=3303) Amikacin (test code=1) Ampicillin + Sulbactam (test code=6) Aztreonam (test code=32) Cefepime (test code=51) Cefoxitin (test code=68) Ceftazidime (test code=27) Ceftriaxone (test code=52) Ertapenem (test code=38) Gentamicin (test code=18) Levofloxacin (test code=22) Meropenem (test code=34) Nitrofurantoin (test code=23) Piperacillin + Tazobactam (test code=29) Tetracycline (test code=2) Tobramycin (test code=25) Trimethoprim + Sulfamethoxazole (test code=47) CULTURE (BEAKER) (test ysfn=2334) >100,000 col/mL Proteus mirabilis <10,000 col/mL skin ranjith<10,000 col/mL gram negative rods of a second typeMR, BRAIN, WITHOUT [id number] 16:03:00Reason for exam:->Ischemic Stroke EvaluationFINAL REPORT MRI [...] [place] Verified Date/Time: 16:03:04 Reading Location: [facility] C013V Neuro Reading Room URINALYSIS W/ [id number] 15:35:00 Test Item Value Reference Range Comments COLOR (BEAKER) (test hwxo=511) Light Yellow CLARITY (BEAKER) (test qpmw=029) Hazy SPECIFIC GRAVITY UA (BEAKER) (test oowl=265) 1.010 1.001-1.035 PH UA (BEAKER) (test nntm=723) 8.0 5.0-8.0 PROTEIN UA (BEAKER) (test abaj=965) 20 mg/dL Negative GLUCOSE UA (BEAKER) (test acfv=956) Negative Negative KETONES UA (BEAKER) (test wael=136) Negative Negative BILIRUBIN UA (BEAKER) (test dvrj=803) Negative Negative BLOOD UA (BEAKER) (test isdo=111) Negative Negative NITRITE UA (BEAKER) (test dkkc=462) Negative Negative LEUKOCYTE ESTERASE UA (BEAKER) (test bhbj=283) Large Negative UROBILINOGEN UA (BEAKER) (test vqdf=295) 0.2 mg/dL 0.2-1.0 RBC UA (BEAKER) (test hddq=637) 2 /HPF WBC UA (BEAKER) (test ekml=076) 87 /HPF SQUAMOUS EPITHELIAL (BEAKER) (test dhys=375) 3 /HPF SOURCE(BEAKER) (test aaad=2391) Urine, Voided URINALYSIS W/ REFLEX URINE [id number] 15:35:00 Test Item Value Reference Range Comments COLOR (BEAKER) (test gpbb=400) Light Yellow CLARITY (BEAKER) (test lsdg=005) Hazy SPECIFIC GRAVITY UA (BEAKER) (test mjug=080) 1.010 1.001-1.035 PH UA (BEAKER) (test nroj=111) 8.0 5.0-8.0 PROTEIN UA (BEAKER) (test bgcs=561) 20 mg/dL Negative GLUCOSE UA (BEAKER) (test psqw=466) Negative Negative KETONES UA (BEAKER) (test sqjd=529) Negative Negative BILIRUBIN UA (BEAKER) (test mtbb=228) Negative Negative BLOOD UA (BEAKER) (test xile=174) Negative Negative NITRITE UA (BEAKER) (test ilgt=963) Negative Negative LEUKOCYTE ESTERASE UA (BEAKER) (test kctp=101) Large Negative UROBILINOGEN UA (BEAKER) (test hksc=923) 0.2 mg/dL 0.2-1.0 RBC UA (BEAKER) (test bpbf=751) 2 /HPF WBC UA (BEAKER) (test vuoa=263) 87 /HPF SQUAMOUS EPITHELIAL (BEAKER) (test bwrs=536) 3 /HPF SOURCE(BEAKER) (test sodh=2272) Urine, Voided [id number] 14:30:00 Test Item Value Reference Range Comments RPR SCREEN (BEAKER) (test pjut=117) Nonreactive Nonreactive HEMOGLOBIN [id number] 10:58:00 Test Item Value Reference Range Comments HEMOGLOBIN A1C (BEAKER) (test rege=262) 5.8 % 4.3-6.1 SEDIMENTATION [id number] 10:44:00 Test Item Value Reference Range Comments SEDIMENTATION RATE, ERYTHROCYTE (BEAKER) (test 52 mm/HR 0-40 xmvi=348) T4, [id number] 09:16:00 Test Item Value Reference Range Comments FREE T4 (BEAKER) (test ggyt=140) 0.94 ng/dL 0.70-1.48 TSH/FREE T4 IF [id number] 08:42:00 Test Item Value Reference Range Comments THYROID STIMULATING HORMONE (BEAKER) (test 0.05 uIU/mL 0.35-4.94 qklr=203) VITAMIN B12 AND [id number] 08:37:00 Test Item Value Reference Range Comments VITAMIN B12 (BEAKER) (test kimf=203) 829 pg/mL 213-816 FOLATE (BEAKER) (test qbwr=060) 15.9 ng/mL >=7.0 [id number] 08:36:00 Test Item Value Reference Range Comments HOMOCYSTEINE (BEAKER) (test dkpu=012) 10.2 umol/L 5.1-15.4 LIPID [id number] 08:26:00 Test Item Value Reference Range Comments TRIGLYCERIDES (BEAKER) (test vmcn=839) 86 mg/dL CHOLESTEROL (BEAKER) (test qvxl=109) 194 mg/dL HDL CHOLESTEROL (BEAKER) (test pxys=260) 66 mg/dL LDL CHOLESTEROL CALCULATED (BEAKER) (test 111 mg/dL tqbp=030) Triglyceride Reference Range: Low Risk <150 Borderline 150- 199 High Risk 200-499 Very High Risk >=500Cholesterol Reference Range: Low Risk <200 Borderline 200-239 High Risk > 240HDL Cholesterol Reference Range: Low Risk >=60 High Risk <40LDL Cholesterol Reference Range: Optimal <100 Near Optimal 100-129 Borderline 130-159 High 160-189 Very High >=190 FastingBASIC METABOLIC [id number] 08:26:00 Test Item Value Reference Range Comments SODIUM (BEAKER) (test 136 meq/L 136-145 djus=377) POTASSIUM (BEAKER) (test 4.7 meq/L 3.5-5.1 gkeu=635) CHLORIDE (BEAKER) (test 99 meq/L 98-107 atpr=874) CO2 (BEAKER) (test 24 meq/L 22-29 rmet=217) BLOOD UREA NITROGEN 27 mg/dL 7-21 (BEAKER) (test scos=847) CREATININE (BEAKER) (test 1.04 mg/dL 0.57-1.25 mbsv=413) GLUCOSE RANDOM (BEAKER) 133 mg/dL 70-105 (test bfvj=285) CALCIUM (BEAKER) (test 8.8 mg/dL 8.4-10.2 ebtz=926) EGFR (BEAKER) (test 51 mL/min/1.73 sq m ESTIMATED GFR IS NOT tijr=9865) ACCURATE CREATININE CLEARANCE IN PREDICTING GLOMERULAR FILTRATION RATE. ESTIMATED GFR IS NOT APPLICABLE FOR DIALYSIS PATIENTS. FastingHEPATIC FUNCTION [id number] 08:26:00 Test Item Value Reference Range Comments TOTAL PROTEIN (BEAKER) (test dchz=005) 6.8 gm/dL 6.0-8.3 ALBUMIN (BEAKER) (test dqmi=5790) 3.4 g/dL 3.5-5.0 BILIRUBIN TOTAL (BEAKER) (test mgst=870) 0.6 mg/dL 0.2-1.2 BILIRUBIN DIRECT (BEAKER) (test bngu=645) 0.2 mg/dL 0.1-0.5 ALKALINE PHOSPHATASE (BEAKER) (test rnha=650) 67 U/L 40-150 AST (SGOT) (BEAKER) (test kwom=008) 16 U/L 5-34 ALT (SGPT) (BEAKER) (test cspz=223) 11 U/L 6-55 FastingCREATINE KINASE (CK), TOTAL AND [id number] 08:26:00 Test Item Value Reference Range Comments CREATINE KINASE TOTAL (BEAKER) (test ghlt=563) 30 U/L 29-200 CREATINE KINASE-MB (BEAKER) (test etgg=919) 0.8 ng/mL 0.0-6.6 CREATINE KINASE-MB INDEX (BEAKER) (test kyif=650) 2.7 % CK-MB Reference Range:<6.7 Normal6.7-10.0 Borderline>10.0 AbnormalFastingFastingC-REACTIVE [id number] 08:26:00 Test Item Value Reference Range Comments C-REACTIVE PROTEIN (BEAKER) (test hdyf=939) 1.74 mg/dL 0.00-0.50 FastingCBC W/PLT COUNT & AUTO [id number] 07:57:00 Test Item Value Reference Range Comments WHITE BLOOD CELL COUNT (BEAKER) (test cehd=203) 16.6 K/ L 3.5-10.5 RED BLOOD CELL COUNT (BEAKER) (test hiht=608) 4.21 M/ L 3.93-5.22 HEMOGLOBIN (BEAKER) (test gsgt=305) 12.3 GM/DL 11.2-15.7 HEMATOCRIT (BEAKER) (test gccq=449) 38.4 % 34.1-44.9 MEAN CORPUSCULAR VOLUME (BEAKER) (test aeun=939) 91.2 fL 79.4-94.8 MEAN CORPUSCULAR HEMOGLOBIN (BEAKER) (test 29.2 pg 25.6-32.2 airh=404) MEAN CORPUSCULAR HEMOGLOBIN CONC (BEAKER) (test 32.0 GM/DL 32.2-35.5 hrxq=264) RED CELL DISTRIBUTION WIDTH (BEAKER) (test 12.9 % 11.7-14.4 cual=276) PLATELET COUNT (BEAKER) (test fnke=735) 296 K/CU MM 150-450 MEAN PLATELET VOLUME (BEAKER) (test kucw=352) 10.3 fL 9.4-12.3 NUCLEATED RED BLOOD CELLS (BEAKER) (test 0 /100 WBC 0-0 vrlb=498) NEUTROPHILS RELATIVE PERCENT (BEAKER) (test 78 % arhy=297) LYMPHOCYTES RELATIVE PERCENT (BEAKER) (test 15 % ixmb=307) MONOCYTES RELATIVE PERCENT (BEAKER) (test 5 % xllx=171) EOSINOPHILS RELATIVE PERCENT (BEAKER) (test 1 % vfva=535) BASOPHILS RELATIVE PERCENT (BEAKER) (test 1 % hxfh=415) NEUTROPHILS ABSOLUTE COUNT (BEAKER) (test 12.92 K/ L 1.56-6.13 fmtl=537) LYMPHOCYTES ABSOLUTE COUNT (BEAKER) (test 2.40 K/ L 1.18-3.74 mmug=236) MONOCYTES ABSOLUTE COUNT (BEAKER) (test 0.90 K/ L 0.24-0.36 bzhw=746) EOSINOPHILS ABSOLUTE COUNT (BEAKER) (test 0.08 K/ L 0.04-0.36 eqsr=489) BASOPHILS ABSOLUTE COUNT (BEAKER) (test 0.11 K/ L 0.01-0.08 rbdr=769) IMMATURE GRANULOCYTES-RELATIVE PERCENT (BEAKER) 1 % 0-1 (test krbc=9527) TROPONIN [id number] 07:47:00 Test Item Value Reference Range Comments TROPONIN I (BEAKER) (test wbdk=404) 0.01 ng/mL 0.00-0.03 Troponin I (TnI) levels [...]
[2018-10-28 11:41] LABS: Absolute Lymphocytes (CBC) 1.5 K/uL (0.7-4.9); Basophils % 0.7 % (0-1.3); Hematocrit 33.9 % (36.0-45.0); Lymphocytes % 11.3 % (15.3-44.8); MPV 8.1 fL (7.6-11.3); RBC Red Blood Cell Count 4.12 M/uL (3.86-4.86)
[2018-10-28 11:55] LABS: Albumin 2.9 g/dL (3.4-5.0); Bilirubin Direct 0.1 mg/dL (0-0.2); Bilirubin Total 0.4 mg/dL (0.2-1.0); Potassium 4.6 mmol/L (3.5-5.1); Protein, Total 7.4 g/dL (6.4-8.2)
--- NOTE | 2018-10-28 12:07 | ER ---
Nurse's Notes [facility] Name: Elida Pradhan Age: 82 yrs Sex: Female : 1935 Arrival Date: 10/28/2018 Time: 10:34 Bed 16 Private MD: Diagnosis: Gastrointestinal hemorrhage, unspecified Presentation: 10/28 10:34 Presenting complaint: EMS states: BRIGHT RED BLOOD PER RECTUM x3 SINCE MIDNIGHT. bp Transition of care: patient was not received from another setting of care. Onset of symptoms was October 28, 2018 at 00:30. Risk Assessment: Do you want to hurt yourself or someone else? Patient reports no desire to harm self or others. Initial Sepsis Screen: Does the patient meet any 2 criteria? No. Patient's initial sepsis screen is negative. Does the patient have a suspected source of infection? No. Patient's initial sepsis screen is negative. Care prior to arrival: Oxygen administered. via nasal cannula. 10:34 Method Of Arrival: EMS: [facility] bp 10:34 Acuity: TALYA 3 bp Triage Assessment: 10:34 General: Appears in no apparent distress. comfortable, Behavior is calm, cooperative, bp appropriate for age. Pain: Denies pain. EENT: No deficits noted. Neuro: No deficits noted. Cardiovascular: No deficits noted. Respiratory: No deficits noted. GI: Reports rectal bleeding. : No signs and/or symptoms were reported regarding the genitourinary system. Derm: No deficits noted. Musculoskeletal: No deficits noted. Historical: - Allergies: 10:46 Cipro; bp 10:46 Levaquin; bp - Home Meds: 10:46 methimazole 10 mg Oral tab 1 tab once daily [Active]; Kristin-Lanta 200-200-20 mg/5 mL bp oral susp 30 mL every 2 hours [Active]; mirtazapine 15 mg oral tab 1 tab nightly [Active]; Xopenex 1.25 mg/3 mL Inhl nebu 3 mL twice a day [Active]; metoprolol tartrate 50 mg Oral tab 1 tab 2 times per day [Active]; Aldactazide 25-25 mg oral tab 1 tab once daily [Active]; apixaban oral 2.5 MG oral 1 tab 2 times per day [Active]; prednisone 5 mg Oral tab once daily [Active]; venlafaxine 75 mg oral cp24 1 cap once daily [Active]; diazepam 5 mg Oral tab 1 tab 2 times per day [Active]; acetaminophen-codeine 300-30 mg oral tab 1 tab every 4 hours [Active]; - PMHx: 10:46 CHF; COPD; DYSPHAGIA; Hypertension; Myocardial infarction; Dementia; Anxiety; bp Depression; GI Bleed; - Immunization history:: Adult Immunizations up to date. - Social history:: Smoking status: Patient/guardian denies using tobacco. - Ebola Screening: : No symptoms or risks identified at this time. Screenin:48 Abuse screen: Denies threats or abuse. Denies injuries from another. Nutritional bp screening: No deficits noted. Tuberculosis screening: No symptoms or risk factors identified. Fall Risk None identified. Assessment: 10:35 General: SEE TRIAGE NOTE. bp 12:30 Reassessment: ALL CURRENT ORDERS COMPLETED, DISPO PENDING. bp 14:23 Reassessment: REPORT TO KAYY CAPUTO AT [facility] FOR RM 2461, TRANSFER FOR GI. bp 15:26 Reassessment: EMS AT B/S FOR TRANSPORT. bp Vital Signs: 10:44 BP 138 / 61; Pulse 60; Resp 16; Temp 98; Pulse Ox 99% on 2 lpm NC; Weight 72.57 kg; bp Pain 0/10; 12:00 BP 131 / 58; Pulse 63; Resp 16; Pulse Ox 98% ; bp 12:56 BP 123 / 95; Pulse 69; Resp 18; Pulse Ox 100% ; bp 14:23 BP 129 / 62; Pulse 66; Resp 16; Temp 98; Pulse Ox 100% ; bp ED Course: 10:34 Patient arrived in ED. bp 10:35 Triage completed. bp 10:37 Eren Ruelas PA is PHCP. jr8 10:38 Geovani Medel MD is Attending Physician. jr8 10:47 Arm band placed on. bp 10:48 Patient has correct armband on for positive identification. Bed in low position. Call bp light in reach. Side rails up X2. 11:05 Ubaldo Delgadillo, HARSHAL is Primary Nurse. bp 11:28 Initial lab(s) drawn, by me, sent to lab. T\T\S collected, blood band applied to patient. em1 Inserted saline lock: 20 gauge in left antecubital area, using aseptic technique. Blood collected. 12:05 Acosta Dodd MD is Hospitalizing Provider. jr8 12:31 CT Abd/Pelvis - Without Contrast In Process Unspecified. EDMS 15:28 No provider procedures requiring assistance completed. Patient transferred, IV remains bp in place. Administered Medications: 13:45 Drug: fentaNYL (PF) 25 mcg Route: IVP; Site: left antecubital; bp 14:24 Follow up: Response: Pain is decreased bp Outcome: 12:05 Decision to Hospitalize by Provider. jr8 14:01 ER care complete, transfer ordered by MD. jr8 15:28 Transferred by ground EMS to [facility]. bp 15:28 Condition: stable 15:28 Instructed on the need for transfer. 15:28 Patient left the ED. bp Signatures: Dispatcher [employer] EDMark Barrera em1 Eren Ruelas PA PA jr8 Ubaldo Delgadillo, RN RN bp Corrections: (The following items were deleted from the chart) 10:47 10:44 BP 138 / 61; Pulse 60bpm; Resp 16bpm; Pulse Ox 99% 2 lpm Nasal Cannula; Pain bp 0/10; em1
--- NOTE | 2018-10-28 12:07 | EDPHYS ---
Physician Documentation [facility] Name: Elida Pradhan Age: 82 yrs Sex: Female : 1935 Arrival Date: 10/28/2018 Time: 10:34 Bed 16 Private MD: ED Physician Geovani Medel HPI: 10/28 11:40 This 82 yrs old Female presents to ER via EMS with complaints of Rectal jr8 Bleeding. 11:40 The patient presents to the emergency department with bleeding from the rectum/anus. jr8 Onset: The symptoms/episode began/occurred acutely, last night. Modifying factors: The symptoms are alleviated by nothing, The symptoms are aggravated by bowel movement. Associate signs and symptoms: The patient has no apparent associated signs or symptoms. The patient has experienced similar episodes in the past, a few times. The patient has not recently seen a physician. History of GI bleeding in past. Currently on Eliquis. Started to have bowel movements with gross blood throughout stool along with pure bloody movements. Stated that she has had 4 so far . Historical: - Allergies: 10:46 Cipro; bp 10:46 Levaquin; bp - Home Meds: 10:46 methimazole 10 mg Oral tab 1 tab once daily [Active]; Kristin-Lanta 200-200-20 mg/5 mL bp oral susp 30 mL every 2 hours [Active]; mirtazapine 15 mg oral tab 1 tab nightly [Active]; Xopenex 1.25 mg/3 mL Inhl nebu 3 mL twice a day [Active]; metoprolol tartrate 50 mg Oral tab 1 tab 2 times per day [Active]; Aldactazide 25-25 mg oral tab 1 tab once daily [Active]; apixaban oral 2.5 MG oral 1 tab 2 times per day [Active]; prednisone 5 mg Oral tab once daily [Active]; venlafaxine 75 mg oral cp24 1 cap once daily [Active]; diazepam 5 mg Oral tab 1 tab 2 times per day [Active]; acetaminophen-codeine 300-30 mg oral tab 1 tab every 4 hours [Active]; - PMHx: 10:46 CHF; COPD; DYSPHAGIA; Hypertension; Myocardial infarction; Dementia; Anxiety; bp Depression; GI Bleed; - Immunization history:: Adult Immunizations up to date. - Social history:: Smoking status: Patient/guardian denies using tobacco. - Ebola Screening: : No symptoms or risks identified at this time. ROS: 11:40 Eyes: Negative for injury, pain, redness, and discharge, ENT: Negative for injury, jr8 pain, and discharge, Neck: Negative for injury, pain, and swelling, Cardiovascular: Negative for chest pain, palpitations, and edema, Respiratory: Negative for shortness of breath, cough, wheezing, and pleuritic chest pain, Back: Negative for injury and pain, MS/Extremity: Negative for injury and deformity, Skin: Negative for injury, rash, and discoloration, Neuro: Negative for headache, weakness, numbness, tingling, and seizure. 11:40 Abdomen/GI: Positive for abdominal pain, rectal bleeding, Negative for nausea, vomiting, and diarrhea, abdominal cramps, abdominal distension, anorexia, dysphagia, hematemesis, black/tarry stool, rectal pain, bowel incontinence, flatulence. Exam: 11:40 Eyes: Pupils equal round and reactive to light, extra-ocular motions intact. Lids and jr8 lashes normal. Conjunctiva and sclera are non-icteric and not injected. Cornea within normal limits. Periorbital areas with no swelling, redness, or edema. ENT: Nares patent. No nasal discharge, no septal abnormalities noted. Tympanic membranes are normal and external auditory canals are clear. Oropharynx with no redness, swelling, or masses, exudates, or evidence of obstruction, uvula midline. Mucous membranes moist. Neck: Trachea midline, no thyromegaly or masses palpated, and no cervical lymphadenopathy. Supple, full range of motion without nuchal rigidity, or vertebral point tenderness. No Meningismus. Cardiovascular: Regular rate and rhythm with a normal S1 and S2. No gallops, murmurs, or rubs. Normal PMI, no JVD. No pulse deficits. Respiratory: Lungs have equal breath sounds bilaterally, clear to auscultation and percussion. No rales, rhonchi or wheezes noted. No increased work of breathing, no retractions or nasal flaring. Back: No spinal tenderness. No costovertebral tenderness. Full range of motion. Skin: Warm, dry with normal turgor. Normal color with no rashes, no lesions, and no evidence of cellulitis. MS/ Extremity: Pulses equal, no cyanosis. Neurovascular intact. Full, normal range of motion. Neuro: Awake and alert, GCS 15, oriented to person, place, time, and situation. Cranial nerves II-XII grossly intact. Motor strength 5/5 in all extremities. Sensory grossly intact. Cerebellar exam normal. Normal gait. 11:40 Abdomen/GI: Inspection: obese Bowel sounds: active, all quadrants, Palpation: soft, in all quadrants, mild abdominal tenderness, in the right lower quadrant and left lower quadrant, mass, is not appreciated, rebound tenderness, is not appreciated, voluntary guarding, is not appreciated, involuntary guarding, is not appreciated, no appreciated organomegaly, Rectal exam: rectal tone normal, Stool: brown, grossly bloody, guaiac positive, hemorrhoid(s), external, without bleeding, without inflammation, without thrombosis, without pain, mass, is not appreciated, swelling, is not appreciated, tenderness, is not appreciated, fecal impaction, is not appreciated, the exam is chaperoned by an video surveillance technician, Indicators: McBurney's point is not tender, Borden's sign is negative, Rovsing's sign is negative, Liver: tenderness, is not appreciated. Vital Signs: 10:44 BP 138 / 61; Pulse 60; Resp 16; Temp 98; Pulse Ox 99% on 2 lpm NC; Weight 72.57 kg; bp Pain 0/10; 12:00 BP 131 / 58; Pulse 63; Resp 16; Pulse Ox 98% ; bp 12:56 BP 123 / 95; Pulse 69; Resp 18; Pulse Ox 100% ; bp 14:23 BP 129 / 62; Pulse 66; Resp 16; Temp 98; Pulse Ox 100% ; bp MDM: 10:57 Patient medically screened. jr8 11:40 Data reviewed: vital signs, nurses notes, lab test result(s), radiologic studies, CT jr8 scan, and as a result, I will admit patient. Data interpreted: Pulse oximetry: on room air is 99 %. Interpretation: normal. Counseling: I had a detailed discussion with the patient and/or guardian regarding: the historical points, exam findings, and any diagnostic results supporting the discharge/admit diagnosis, lab results, radiology results, the need for further work-up and treatment in the hospital. 10/28 10:58 Order name: Basic Metabolic Panel; Complete Time: 12:05 jr8 10/28 10:58 Order name: CBC with Diff; Complete Time: 11:51 10/28 10:58 Order name: Creatinine for Radiology; Complete Time: 12:05 10/28 10:58 Order name: Hepatic Function; Complete Time: 12:05 10/28 10:58 Order name: Lipase; Complete Time: 12:05 10/28 10:58 Order name: TS; Complete Time: 12:37 10/28 10:58 Order name: IV Saline Lock; Complete Time: 11:18 10/28 10:58 Order name: Labs collected and sent; Complete Time: 11:18 10/28 12:05 Order name: CT Abd/Pelvis - Without Contrast; Complete Time: 12:42 Administered Medications: 13:45 Drug: fentaNYL (PF) 25 mcg Route: IVP; Site: left antecubital; bp 14:24 Follow up: Response: Pain is decreased bp Disposition: 10/28/18 14:01 Transfer ordered to [facility]. Diagnosis is Gastrointestinal hemorrhage, unspecified. - Reason for transfer: Higher level of care. - Accepting physician is Dr. Resendez. - Condition is Stable. - Problem is new. - Symptoms are unchanged. Addendum: 10/31/2018 09:22 Co-signature as Attending Physician, Geovani Medel MD I agree with the assessment and k dr plan of care. Signatures: Dispatcher [employer] EDID Geovani Medel MD MD [email or web address] Eren Ruelas PA PA jr8 Ubaldo Delgadillo RN RN bp Corrections: (The following items were deleted from the chart) 10/28 12:10 12:05 Hospitalization Ordered by Acosta Dodd MD for Inpatient Admission. Preliminary jr8 diagnosis is Gastrointestinal hemorrhage, unspecified. Bed requested for Telemetry/MedSurg (Inpatient). Status is Inpatient Admission. Condition is Stable. Problem is new. Symptoms are unchanged. UTI on Admission? No. jr8 15:28 14:01 10/28/2018 14:01 Transfer ordered to [facility]. Diagnosis is bp Gastrointestinal hemorrhage, unspecified. Reason for transfer: Higher level of care. Accepting physician is Dr. Resendez. Condition is Stable. Problem is new. Symptoms are unchanged. jr8
--- NOTE | 2018-10-28 12:40 | RAD REPORT ---
EXAM DESCRIPTION: CT - Abdomen Pelvis Wo Contrast - 10/28/2018 12:30 pm CLINICAL HISTORY: Abdominal pain, GI bleed, rectal blood, history of GI bleed COMPARISON: CT August 2018 TECHNIQUE: Axial [address] imaging of the abdomen and pelvis was performed without IV contrast. No IV contrast was given because of allergy, abnormal renal function, patient refusal or physician re quest. No oral contrast administered. All CT scans are performed using dose optimization technique as appropriate and may include automated exposure control or mA/KV adjustment according to patient size. FINDINGS: No suspicious findings in the lung bases. The liver, spleen and pancreas show no suspicious findings on non-contrast imaging. Gallbladder and b iliary tree are also without suspicious finding. No hydronephrosis or suspicious renal mass. Renal arterial tree calcifications are present. No signif icant adrenal finding. Isodense renal masses and pyelonephritis cannot be excluded in the absence of IV contrast. The urinary bladder is without significant finding. Uterus and ovaries show no suspiciou s findings for age. No gastric dilatation or gastric wall thickening. Small bowel loops are unremarkable. A normal append ix is identified. The patient has a prominent but otherwise unremarkable fatty ileocecal valve. Moder ate stool volume is seen from the cecum to the splenic flexure. Stool is scattered in the left side o f the colon. The patient has mild diverticulosis but no diverticulitis. Sigmoid colon is tortuous. No colon wall mass or other abnormality to explain rectal bleeding. No free air, free fluid or inflammatory stranding. No hernia, mass or bulky lymphadenopathy. No suspicious bony findings. Prominent aortoiliac, mesenteric and renal artery calcifications are present. No displaced aortic bessy cification. Vascular assessment is limited in the absence of contrast. IMPRESSION: Minimal left-sided diverticulosis seen without diverticulitis. No acute GI process or ot her abnormality identified to explain GI bleed symptoms. Full assessment is limited is the absence of IV contrast.
[2018-10-28] MEDS ORDERED: FENTANYL CITR 100 MCG/2 ML ONE (13:42)
[2018-10-28 15:33] VITALS: TEMP 98
[2018-10-28 15:36] VITALS: O2SAT 100
[2018-10-28 15:37] VITALS: BP 129/62
== END 2018-10-28 15:28 | disposition short-term general hospital (02) ==
LOC: ER 10:31
DX: K92.2 Gastrointestinal hemorrhage, unspecified (principal); I10 Essential (primary) hypertension; J44.9 Chronic obstructive pulmonary disease, unspecified; I50.9 Heart failure, unspecified; I25.2 Old myocardial infarction; F41.9 Anxiety disorder, unspecified; F32.9 Major depressive disorder, single episode, unspecified; F03.90 Unspecified dementia, unspecified severity, without behavioral disturbance, psychotic disturbance, mood disturbance, and anxiety; Z88.1 Allergy status to other antibiotic agents
CPT/HCPCS: 85025; 80048; 36415; 86900; 86850; 86901; 80076; 83690; 74176; 96374; 99285; J3010

== ENCOUNTER 2018-12-08 01:00 | Inpatient (IN) | payer OTHER ==
--- OUTSIDE RECORDS SUMMARY | 2018-12-08 01:04 | XMS REPORT | Clinical Summary ---
:1935 Author Organization [facility] Address [address] [place] [address] Care Team Providers Name Role Phone Slade Saldana Jeramie Unavailable Allergies Active Allergy Reactions Severity Noted Date Comments Ciprofloxacin 09/04/2018 Levofloxacin Diarrhea, Rash Low 11/06/2016 Medications Medication Sig Dispensed Refills Start Date End Date Status albuterol HFA Inhale 2 puffs 0 Active (PROAIR HFA) 90 by mouth via mcg/actuation inhaler every 6 inhaler (six) hours as needed for Wheezing. diazePAM (VALIUM) 5 Take 5 mg by [...] tablet by mouth 2 (two) times daily. acetaminophen-codei Take 1 tablet 0 Active ne (TYLENOL #3) by mouth every 300-30 mg per 4 (four) hours tablet as needed for Pain. NITROGLYCERIN ORAL Take by mouth. 0 Active apixaban (ELIQUIS) Take 1 tablet 60 tablet 1 09/05/2018 Active 2.5 mg Tab tablet (2.5 mg total) by mouth 2 (two) times daily. HYDROcodone-acetami Take 1 tablet 0 Discontinued nophen (NORCO by mouth 2 9 5-325) 5-325 mg per (two) times tablet daily as needed for Pain. umeclidinium-vilant Inhale 1 puff 0 Discontinued sanju (ANORO by mouth via 9 ELLIPTA) 62.5-25 inhaler daily. mcg/actuation DsDv aspirin 81 MG EC Take 1 tablet 0 01/14/2017 tablet (81 mg total) 8 by mouth daily. spironolactone-hydr Take 1 tablet 0 01/13/2017 Discontinued oCHLOROthiazide by mouth daily. 9 (ALDACTAZIDE) 25-25 mg per tablet URSODIOL ORAL Take by mouth. 0 Discontinued 9 Active Problems Problem Noted Date Hematochezia 10/29/2018 GIB (gastrointestinal bleeding) 09/04/2018 Acute cystitis without hematuria 01/10/2017 TIA (transient ischemic attack) 01/09/2017 Uncontrolled hypertension 01/09/2017 Hyperthyroidism 01/09/2017 COPD (chronic obstructive pulmonary disease) 01/09/2017 Coronary artery disease 01/09/2017 Headache 01/09/2017 Leukocytosis 01/09/2017 Word finding difficulty 01/09/2017 Encounters Date Type Specialty Care Team Description Anesthesia Event Gastroenterology Dlylan Fisher 9 MD Corky Surgery Gastroenterology Zarina Murrell, COLONOSCOPY,POLYPECTO 9 MD BURGOS Orders Only General Internal 9 Medicine Hospital Encounter Cardiology Dipti Oh, Acute cystitis without hematuria; Juan Pablo - Ashly Shah MD Hematochezia; Marilyn Brittiloneyda Hyperthyroidism; Juan Pablo Antonio MD Chest pain at rest; Imer Ibarra, PATRICIA (acute kidney injury) (HCC); Gastrointestinal hemorrhage associated with anorectal source Travel 9 Documentation Internal Medicine Dipti Oh, Juan Pablo Shah MD Hospital Encounter Cardiology Brann, Gastrointestinal hemorrhage associated with anorectal source; 9 - Christopher Acute blood loss anemia; MD Paul Hematochezia; 9 George, Diverticulosis; MD Sofía Chronic diarrhea; Racheal Lowery Chronic bronchitis, unspecified chronic bronchitis type ( HCC); MD Ronit 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 Never 10/28/2018 How many drinks containing alcohol do you have on a typical Not asked day when you are drinking? How often do you have six or more drinks on one occasion? Not asked Sex Assigned at Date Recorded Not on file Job Start Date Occupation Industry Not on file Not on file Not on file Travel History Travel Start Travel End No recent travel history available. Last Filed Vital Signs Vital Sign Reading Time Taken Blood Pressure 129/59 10/31/2018 12:00 PM CDT Pulse 66 10/31/2018 12:00 PM CDT Temperature 36.5 C (97.7 F) 10/31/2018 12:00 PM CDT Respiratory Rate 18 10/31/2018 12:00 PM CDT Oxygen Saturation 96% 10/31/2018 12:00 PM CDT Inhaled Oxygen Concentration - - Weight 77.3 kg (170 lb 6.4 oz) 10/28/2018 5:25 PM CDT Height 154.9 cm (5' 1") 10/28/2018 5:25 PM CDT Body Mass Index 32.2 10/28/2018 5:25 PM CDT Plan of Treatment Not on file Procedures Procedure Name Priority Date/Time Associated Diagnosis Comments RHYTHM STRIP - SCAN 11/02/2018 7:40 AM CDT HEMOGLOBIN AND Routine 10/31/2018 4:10 Results for this HEMATOCRIT AM CDT procedure are in the results section. BASIC METABOLIC Routine 10/31/2018 4:10 Results for this PANEL (7) AM CDT procedure are in the results section. BASIC METABOLIC Routine 10/30/2018 6:13 Results for this PANEL (7) AM CDT procedure are in the results section. HEMOGLOBIN AND Routine 10/30/2018 6:13 Results for this HEMATOCRIT AM CDT procedure are in the results section. HEMOGLOBIN AND Routine 10/29/2018 2:21 Results for this HEMATOCRIT PM CDT procedure are in the results section. TROPONIN I Routine 10/29/2018 2:21 Results for this PM CDT procedure are in the results section. REPORT OF PROCEDURE 10/29/2018 1:39 - ENDOSCOPY URL PM CDT POCT-GLUCOSE METER Routine 10/29/2018 1:24 Results for this PM CDT procedure are in the results section. TISSUE EXAM AP Routine 10/29/2018 12:28 Results for this PM CDT procedure are in the results section. COLONOSCOPY,POLYPEC 10/29/2018 10:00 Hematochezia MITA AM CDT ECG 12-LEAD Routine 10/29/2018 8:10 AM CDT Procedure Note - Interface, External Ris In - 10/29/2018 8:15 AM CDT Ventricular Rate 98 BPM Atrial Rate 98 BPM P-R Interval 154 ms QRS Duration 78 ms Q-T Interval 366 ms QTC Calculation(Bazett) 467 ms P [place] 46 degrees R [place] 3 degrees T [place] 63 degrees Normal sinus rhythm Normal ECG When compared with ECG of 29-OCT-2018 01:21, No significant change was found ECG 12-LEAD Routine 10/29/2018 8:10 AM CDT TROPONIN I Routine 10/29/2018 5:39 AM CDT HEMOGLOBIN AND HEMATOCRIT Routine 10/29/2018 5:38 AM CDT XR CHEST 1 VIEW Routine 10/29/2018 3:53 AM CDT Results for this PORTABLE/BEDSIDE procedure are in the results section. BASIC METABOLIC PANEL (7) Routine 10/29/2018 1:41 AM CDT TROPONIN I Routine 10/29/2018 1:41 AM CDT MAGNESIUM Routine 10/29/2018 1:41 AM CDT ECG 12-LEAD Routine 10/29/2018 1:21 AM CDT Procedure Note - Interface, External Ris In - 10/29/2018 1:53 AM CDT Ventricular Rate 78 BPM Atrial Rate 78 BPM P-R Interval 160 ms QRS Duration 80 ms Q-T Interval 414 ms QTC Calculation(Bazett) 471 ms P [place] 46 degrees R [place] 15 degrees T [place] 66 degrees Normal sinus rhythm with sinus arrhythmia Normal ECG When compared with ECG of 12-JAN-2017 18:09, Premature atrial complexes are no longer Present ECG 12-LEAD Routine 10/29/2018 1:21 AM CDT CBC W/PLT COUNT & AUTO Routine 10/28/2018 8:08 PM CDT Results for this DIFFERENTIAL procedure are in the results section. CBC W/PLT COUNT & AUTO Routine 10/28/2018 8:08 PM CDT Results for this DIFFERENTIAL procedure are in the results section. RHYTHM STRIP - SCAN 09/07/2018 10:30 AM CDT RHYTHM STRIP - SCAN 09/07/2018 10:22 AM CDT TRANSFUSION SERVICE REPORT - 09/05/2018 6:00 PM CDT SCAN CBC (HEMOGRAM ONLY) Routine 09/05/2018 5:01 AM CDT BASIC METABOLIC PANEL (7) Routine 09/05/2018 5:00 AM CDT ABORH, MANUAL STAT 09/04/2018 7:17 PM CDT THROMBOELASTOGRAPH (TEG) Routine 09/04/2018 7:17 PM CDT TYPE AND SCREEN, AUTOMATED Routine 09/04/2018 6:36 PM CDT HEMOGLOBIN AND HEMATOCRIT STAT 09/04/2018 6:36 PM CDT HEMOGLOBIN AND HEMATOCRIT Routine 09/04/2018 4:49 PM CDT T4, FREE Routine 09/04/2018 12:22 PM CDT TSH/FREE T4 IF INDICATED Routine 09/04/2018 12:22 PM CDT CBC (HEMOGRAM ONLY) Routine 09/04/2018 10:57 AM CDT CBC (HEMOGRAM ONLY) Routine 09/04/2018 3:58 AM CDT HEPATIC FUNCTION PANEL Routine 09/04/2018 3:58 AM CDT PT/APTT Routine 09/04/2018 3:58 AM CDT MAGNESIUM Routine 09/04/2018 3:58 AM CDT BASIC METABOLIC PANEL (7) Routine 09/04/2018 3:58 AM CDT after 12/07/2017 Results RHYTHM STRIP - SCAN (11/02/2018 7:40 AM CDT)Only the most recent of3 resultswithin the time period is included. Narrative Performed At Hemoglobin and hematocrit (10/31/2018 4:10 AM CDT)Only the most recent of6 resultswithin the time period is included. Hemoglobin 10.0 (L) 11.2 - 15.7 GM/DL [facility] Hematocrit 33.3 (L) 34.1 - 44.9 % [facility] Specimen Blood Performing Organization Address City/State/Zipcode Phone Number [facility] [address] [place] [address] CENTER Basic Metabolic Panel (10/31/2018 4:10 AM CDT)Only the most recent of5 resultswithin the time period is included. Sodium 136 136 - 145 meq/L [facility] Potassium 4.1 3.5 - 5.1 meq/L [facility] Chloride 102 98 - 107 meq/L [facility] CO2 26 22 - 29 meq/L [facility] BUN 21 7 - 21 mg/dL [facility] Creatinine 1.15 0.57 - 1.25 mg/dL [facility] Glucose 91 70 - 105 mg/dL [facility] Calcium 8.7 8.4 - 10.2 mg/dL [facility] EGFR 45Comment: ESTIMATED GFR IS mL/min/1.73 sq m [facility] NOT ACCURATE CREATININE [facility] CLEARANCE IN PREDICTING GLOMERULAR FILTRATION RATE. ESTIMATED GFR IS NOT APPLICABLE FOR DIALYSIS PATIENTS. Specimen Blood Performing Organization Address [facility] Phone Number [address] [address] [place] Troponin I (10/29/2018 2:21 PM CDT)Only the most recent of3 resultswithin the time period is included. Troponin I 0.02 0.00 - 0.03 ng/mL [facility] Specimen Blood Narrative Performed At Troponin I (TnI) levels must be interpreted [facility] in the context of the presenting symptoms and the clinical findings. Elevated TnI levels indicate myocardial damage, but are not specific for ischemic heart disease. Elevated TnI levels are seen in patients with other cardiac conditions (including myocarditis and congestive heart failure), and slight TnI elevations occur in patients with other conditions, including sepsis, renal failure, acidosis, acute neurological disease, and persistent tachyarrhythmia. Performing Organization Address [facility] Phone Number [address] [address] [place] REPORT OF PROCEDURE - ENDOSCOPY URL (10/29/2018 1:39 PM CDT) Narrative Performed At POC-Glucose meter (10/29/2018 1:24 PM CDT) POC-Glucose Meter 123 (H)Comment: TESTED AT 70 - 110 mg/dL [address] [address] Specimen Blood Performing Organization Address [facility] Phone Number [address] [address] [place] Tissue Exam (10/29/2018 12:28 PM CDT) Case Report Surgical Pathology Report Case: [id number] [facility] Authorizing Provider:Zarina Murrell MDCollected: 10/29/2018 1228 [facility] Ordering Location: [address] Received: 10/31/2018 0811 Service Pathologist: Amanda Guajardo MD Specimens: A) - Polyp, Colon - Sigmoid, via hot snare B) - Polyp, Colon - Rectum, via hot snare, 2 polyps in Jab B DIAGNOSIS A.COLON, SIGMOID, ENDOSCOPIC POLYPECTOMY: [facility] - SESSILE SERRATED POLYP [facility] - NEGATIVE FOR HIGH GRADE DYSPLASIA OR MALIGNANCY B.COLON, RECTUM, POLYP X 2, ENDOSCOPIC POLYPECTOMY: - PIECES OF TUBULAR ADENOMA - NO DEFINITE HIGH GRADE DYSPLASIA SEEN - NO MALIGNANCY PRESENT Signing Pathologist Direct Phone Line: [phone] CPT Code(s) 02832 X 2 [facility] CLINICAL HISTORY Pre and postop diagnosis: [facility] hematochezia [facility] SPECIMEN SOURCE A. Polyp, colon - sigmoid; [facility] B. Polyp, colon - rectum, 2 [facility] polyps GROSS DESCRIPTION A. Received in formalin labeled with the patient's name, accession number and "polyp, colon - sigmoid" is a 0.7 x 0.5 x 0.5 cm irregular pink polyp. The base is inked blue and the specimen is bisected and entirely submitted in A1. [facility] B. Received in formalin labeled with the patient's name, accession number and "polyp, colon - rectum" is a 1.5 x 1.5 x 0.4 cm aggregate of multiple, irregular arana-pink polypoid tissue fragments. The lar mikel tissues are sectioned and the specimen is entirely submitted in B1-B3. CG/pl MICROSCOPIC DESCRIPTION PERFORMED [facility] Specimen Tissue - Polyp, Colon - Sigmoid Tissue - Polyp, Colon - Rectum Performing Organization Address City/State/Zipcode Phone Number [facility] [address] [place] [address] CENTER ECG 12 lead (10/29/2018 8:10 AM CDT)Only the most recent of2 resultswithin the time period is included. Specimen Narrative Performed At Ventricular Rate 98 BPM GE MUSE Atrial Rate 98 BPM P-R Interval 154 ms QRS Duration 78 ms Q-T Interval 366 ms QTC Calculation(Bazett) 467 ms P [place] 46 degrees R [place] 3 degrees T [place] 63 degrees Normal sinus rhythm Normal ECG When compared with ECG of 29-OCT-2018 01:21, No significant change was found Confirmed by Isaiah Jones ([id number]) on 10/30/2018 9:17:39 PM Procedure Note Interface, External Ris In - 10/30/2018 9:17 PM CDT Ventricular Rate 98 BPM Atrial Rate 98 BPM P-R Interval 154 ms QRS Duration 78 ms Q-T Interval 366 ms QTC Calculation(Bazett) 467 ms P [place] 46 degrees R [place] 3 degrees T [place] 63 degrees Normal sinus rhythm Normal ECG When compared with ECG of 29-OCT-2018 01:21, No significant change was found Confirmed by Isaiah Jones ([id number]) on 10/30/2018 9:17:39 PM Performing Organization Address City/State/Zipcode Phone Number [employer] [facility] XR chest 1 view portable / bedside (10/29/2018 3:53 AM CDT) Specimen Narrative Performed At FINAL REPORT [employer] Chest, one view. HISTORY: chest pain COMPARISON: None IMPRESSION: Tortuous thoracic aorta with a prominent ascending thoracic aorta. Consider a CTA on for further evaluation. The cardiac silhouette is near the upper limit of normal in size. Pulmonary venous congestion. Streaky opacities in the right base are likely due to atelectasis. No pleural effusion or pneumothorax. No acute bony abnormality. Signed: Ankush Munoz MD Report Verified Date/Time:10/29/2018 06:59:47 Reading Location: [address] Body Reading Room Procedure Note Interface, External Ris In - 10/29/2018 7:02 AM CDT FINAL REPORT Chest, one view. HISTORY: chest pain COMPARISON: None IMPRESSION: Tortuous thoracic aorta with a prominent ascending thoracic aorta. Consider a CTA on for further evaluation. The cardiac silhouette is near the upper limit of normal in size. Pulmonary venous congestion. Streaky opacities in the right base are likely due to atelectasis. No pleural effusion or pneumothorax. No acute bony abnormality. Signed: Ankush Munoz MD Report Verified Date/Time: 10/29/2018 06:59:47 Reading Location: [facility] B1 C013Y CT Body Reading Room Performing Organization Address City/State/Zipcode Phone Number GE RIS Magnesium (10/29/2018 1:41 AM CDT)Only the most recent of2 resultswithin the time period is included. Magnesium 2.1 1.6 - 2.6 mg/dL [facility] Specimen Blood Performing Organization Address City/State/Zipcode Phone Number [facility] [address] [place] [address] [phone] CENTER CBC with platelet count + automated diff (10/28/2018 8:08 PM CDT) WBC 13.9 (H) 3.5 - 10.5 K/L [facility] RBC 4.06 3.93 - 5.22 M/L [facility] Hemoglobin 10.5 (L) 11.2 - 15.7 GM/DL [facility] Hematocrit 34.3 34.1 - 44.9 % [facility] MCV 84.5 79.4 - 94.8 fL [facility] MCH 25.9 25.6 - 32.2 pg [facility] MCHC 30.6 (L) 32.2 - 35.5 GM/DL [facility] RDW 13.3 11.7 - 14.4 % [facility] Platelets 326 150 - 450 K/CU MM [facility] MPV 9.7 9.4 - 12.3 fL [facility] nRBC 0 0 - 0 /100 WBC [facility] % Neutros 76 % [facility] % Lymphs 16 % [facility] % Monos 5 % [facility] % Eos 1 % [facility] % Baso 1 % [facility] # Neutros 10.66 (H) 1.56 - 6.13 K/L [facility] # Lymphs 2.28 1.18 - 3.74 K/L [facility] # Monos 0.74 (H) 0.24 - 0.36 K/L [facility] # Eos 0.13 0.04 - 0.36 K/L [facility] # Baso 0.08 0.01 - 0.08 K/L [facility] Immature 0 0 - 1 % [facility] Specimen Blood Performing Organization Address City/State/Zipcode Phone Number [facility] [address] [place] [address] CENTER TRANSFUSION SERVICE REPORT - SCAN (09/05/2018 6:00 PM CDT) Narrative Performed At CBC (Hemogram only) (09/05/2018 5:01 AM CDT)Only the most recent of3 resultswithin the time period is included. WBC 14.3 (H) 3.5 - 10.5 K/L [facility] RBC 3.26 (L) 3.93 - 5.22 M/L [facility] Hemoglobin 9.0 (L) 11.2 - 15.7 GM/DL [facility] Hematocrit 29.6 (L) 34.1 - 44.9 % [facility] MCV 90.8 79.4 - 94.8 fL [facility] MCH 27.6 25.6 - 32.2 pg [facility] MCHC 30.4 (L) 32.2 - 35.5 GM/DL [facility] RDW 12.7 11.7 - 14.4 % [facility] Platelets 302 150 - 450 K/CU MM [facility] MPV 10.7 9.4 - 12.3 fL [facility] nRBC 0 0 - 0 /100 WBC [facility] Specimen Blood Performing Organization Address City/[facility]/Zipcode Phone Number [address] [address] C[place] ABORH, manual (09/04/2018 7:17 PM CDT) ABO Grouping B [facility] Rh Factor POS [facility] Specimen Blood Performing Organization Address [facility] Phone Number [address] [address] Thromboelastograph (TEG) (09/04/2018 7:17 PM CDT) TEG Activated Clotting Time 4.5 4.0 - 7.0 minutes [facility] TEG Fibrinogen Activity 78.3 (H) 61.0 - 73.0 degrees [facility] TEG Platelet Aggregation 71.4 (H) 55.0 - 65.0 MM [facility] TEG Fibrinolysis 1.0 0.0 - 5.0 % [facility] TEG-H Activated Clotting Time 4.5 4.0 - 7.0 minutes [facility] TEG-H Fibrinogen Activity 75.3 (H) 61.0 - 73.0 degrees [facility] TEG-H Platelet Aggregation 62.9 55.0 - 65.0 MM [facility] TEG-H Fibrinolysis 2.2 0.0 - 5.0 % [facility] Specimen Blood Performing Organization Address City/[facility] Phone Number [address] [address] [phone] CENTER Type and screen, automated (09/04/2018 6:36 PM CDT) ABO/RH AUTOMATED (BEAKER) B POSITIVE [facility] Ab Scrn NEGATIVE [facility] Specimen Blood Performing Organization Address City/[facility] Phone Number [address] [address] TSH/Free T4 If Indicated (09/04/2018 12:22 PM CDT) TSH 0.01 (L) 0.35 - 4.94 uIU/mL [facility] Specimen Blood Performing Organization Address [facility] Phone Number [address] [address] CENTER T4, free (09/04/2018 12:22 PM CDT) Free T4 1.14 0.70 - 1.48 ng/dL [facility] Specimen Blood Performing Organization Address [facility] Phone Number [address] [address] CENTER PT/aPTT (09/04/2018 3:58 AM CDT) Protime 15.4 (H) 11.9 - 14.2 seconds [facility] INR 1.3 <=5.9 [facility] PTT 38.0 (H) 22.5 - 36.0 seconds [facility] Specimen Blood Narrative Performed At Effective 08/17/2018: PT Reference Range [facility] Change New: 11.9-14.2Previous: 11.7-14.7 RECOMMENDED COUMADIN/WARFARIN INR THERAPY RANGES STANDARD DOSE: 2.0-3.0Includes: PROPHYLAXIS for venous thrombosis, systemic embolization; TREATMENT for venous thrombosis and/or pulmonary embolus. HIGH RISK: Target INR is 2.5-3.5 for patients wiht mechanical heart valves. Performing Organization Address City/State/[facility] Phone Number [facility] [address] [place] [address] [phone] CENTER Hepatic function panel (09/04/2018 3:58 AM CDT) Protein, Total 7.7 6.0 - 8.3 gm/dL [facility] Albumin 3.5 3.5 - 5.0 g/dL [facility] Total Bilirubin 0.3 0.2 - 1.2 mg/dL [facility] Bilirubin, Direct 0.2 0.1 - 0.5 mg/dL [facility] Alkaline Phosphatase 72 40 - 150 U/L [facility] AST 16 5 - 34 U/L [facility] ALT 10 6 - 55 U/L [facility] Specimen Blood Performing Organization Address City/State/[facility] Phone Number [facility] [address] [place] [address] [place] after 12/07/2017 Insurance Payer Benefit Plan / Group Subscriber ID Type Phone Address MEDICARE MEDICARE A B xxxxxxxxxxx Medicare MCR SUPPLEMENT/INDIVIDUAL [employer]ARP/[facility] xxxxxxxxxxx [address] Sim[address] Holden (Home) [address] [place] [address] Advance Directives For more information, please contact:[address] [phone] Code Status Date Activated Date Inactivated Comments Full Code 10/28/2018 6:25 PM 10/31/2018 4:20 PM This code status was determined by: Patient Full Code 09/04/2018 3:16 AM 09/06/2018 12:11 AM This code status was determined by: Patient Full Code 01/09/2017 3:57 AM 01/13/2017 2:09 PM This code status was determined by: Patient
--- OUTSIDE RECORDS SUMMARY | 2018-12-08 01:05 | XMS REPORT ---
:1935 [facility] [address] [place] [address] Care Team Providers Name Role Phone EMILIE JEWELL PILO PEDROZA Unavailable Unavailable JI BONILLA Unavailable Unavailable HAILEE DOWELL Unavailable Unavailable Problems This patient has no known problems. Allergies, Adverse Reactions, Alerts This patient has no known allergies or adverse reactions. Medications This patient has no known medications. Results Test Description Test Time Test Comments Text Results Atomic Results Result Comments TISSUE EXAM 2018 12:26:00 Surgical Pathology Report Case: [id number] Authorizing Provider: Zarina Murrell MD Collected: 10/29/2018 1228 Ordering Location: [address] Received: 10/31/2018 0811 Service Pathologist: Amanda Guajardo MD Specimens: A) - Polyp, Colon - Sigmoid, via hot snare B) - Polyp, Colon - Rectum, via hot snare, 2 polyps in Jab B A.COLON, SIGMOID, ENDOSCOPIC POLYPECTOMY: - SESSILE SERRATED POLYP - NEGATIVE FOR HIGH GRADE DYSPLASIA OR MALIGNANCYB.COLON, RECTUM, POLYP X 2, ENDOSCOPIC POLYPECTOMY: - PIECES OF TUBULAR ADENOMA - NO DEFINITE HIGH GRADE DYSPLASIA SEEN - NO MALIGNANCY PRESENT Signing Pathologist Direct Phone Line: [phone] signed by Amanda Guajardo MD on 2018 at 12:26 [id number] X 2Pre and postop diagnosis: hematocheziaA. Polyp, colon - sigmoid; B. Polyp, colon - rectum, 2 polyps A. Received in formalin labeled with the patient's name, accession number and "polyp, colon - sigmoid" is a 0.7 x 0.5 x 0.5 cm irregular pink polyp. The base is inked blue and the specimen is bisected and entirely submitted in A1. B. Received in formalin labeled with the patient's name, accession number and "polyp, colon - rectum" is a 1.5 x 1.5 x 0.4 cm aggregate of multiple, irregular arana-pink polypoid tissue fragments. The larger tissues are sectioned and the specimen is entirely submitted in B1-B3. CG/pl PERFORMED BASIC METABOLIC PANEL 2018-10-31 05:20:00 Test Item Value Reference Range Comments SODIUM (BEAKER) (test 136 meq/L 136-145 cndx=919) POTASSIUM (BEAKER) (test 4.1 meq/L 3.5-5.1 qkyb=971) CHLORIDE (BEAKER) (test 102 meq/L 98-107 qjir=575) CO2 (BEAKER) (test rqsb=841) 26 meq/L 22-29 BLOOD UREA NITROGEN (BEAKER) 21 mg/dL 7-21 (test zaat=809) CREATININE (BEAKER) (test 1.15 mg/dL 0.57-1.25 jvnf=808) GLUCOSE RANDOM (BEAKER) 91 mg/dL 70-105 (test qobd=529) CALCIUM (BEAKER) (test 8.7 mg/dL 8.4-10.2 jybq=745) EGFR (BEAKER) (test 45 mL/min/1.73 sq m ESTIMATED GFR IS NOT echz=9128) ACCURATE CREATININE CLEARANCE IN PREDICTING GLOMERULAR FILTRATION RATE. ESTIMATED GFR IS NOT APPLICABLE FOR DIALYSIS PATIENTS. HEMOGLOBIN AND [id number] 04:49:00 Test Item Value Reference Range Comments HEMOGLOBIN (BEAKER) (test uazo=782) 10.0 GM/DL 11.2-15.7 HEMATOCRIT (BEAKER) (test ebqp=772) 33.3 % 34.1-44.9 BASIC METABOLIC [id number] 07:15:00 Test Item Value Reference Range Comments SODIUM (BEAKER) (test 138 meq/L 136-145 dhcd=521) POTASSIUM (BEAKER) (test 3.8 meq/L 3.5-5.1 chgo=882) CHLORIDE (BEAKER) (test 103 meq/L 98-107 dfzt=319) CO2 (BEAKER) (test 27 meq/L 22-29 krig=226) BLOOD UREA NITROGEN 26 mg/dL 7-21 (BEAKER) (test mere=208) CREATININE (BEAKER) (test 1.21 mg/dL 0.57-1.25 wfru=588) GLUCOSE RANDOM (BEAKER) 106 mg/dL 70-105 (test fmvj=144) CALCIUM (BEAKER) (test 8.8 mg/dL 8.4-10.2 iaht=311) EGFR (BEAKER) (test 42 mL/min/1.73 sq m ESTIMATED GFR IS NOT vsgc=2941) ACCURATE CREATININE CLEARANCE IN PREDICTING GLOMERULAR FILTRATION RATE. ESTIMATED GFR IS NOT APPLICABLE FOR DIALYSIS PATIENTS. HEMOGLOBIN AND [id number] 06:27:00 Test Item Value Reference Range Comments HEMOGLOBIN (BEAKER) (test hzje=781) 9.6 GM/DL 11.2-15.7 HEMATOCRIT (BEAKER) (test qkpi=935) 31.4 % 34.1-44.9 TROPONIN [id number] 14:57:00 Test Item Value Reference Range Comments TROPONIN I (BEAKER) (test kxjw=124) 0.02 ng/mL 0.00-0.03 Troponin I (TnI) levels must [...] failure, acidosis, acute neurological disease, and persistent tachyarrhythmia.HEMOGLOBIN AND [id number] 14: 30:00 Test Item Value Reference Range Comments HEMOGLOBIN (BEAKER) (test beap=397) 10.4 GM/DL 11.2-15.7 HEMATOCRIT (BEAKER) (test zola=259) 33.6 % 34.1-44.9 POCT-GLUCOSE [id number] 13:29:00 Test Item Value Reference Range Comments POC-GLUCOSE METER (BEAKER) 123 mg/dL 70-110 TESTED AT [facility] [address] [facility] (test jdsp=0269) [facility] [address] TROPONIN [id number] 07:54:00 Test Item Value Reference Range Comments TROPONIN I (BEAKER) (test nvvb=178) < ng/mL 0.00-0.03 Troponin I (TnI) levels must [...] failure, acidosis, acute neurological disease, and persistent tachyarrhythmia.RAD, CHEST, 1 VIEW, NON [id number] 06:59:00Reason for exam:->chest painShould this be performed at the bedside?- >YesFINAL REPORT Chest, one view. HISTORY: chest pain [...] No acute bony abnormality. Signed: Ankush Munoz [facility] Verified Date/Time: 10/29/2018 06:59:47 Reading Location: [facility] C013Y CT Body Reading Room HEMOGLOBIN AND [id number] 06:05:00 Test Item Value Reference Range Comments HEMOGLOBIN (BEAKER) (test rukl=538) 10.9 GM/DL 11.2-15.7 HEMATOCRIT (BEAKER) (test bhqa=987) 36.0 % 34.1-44.9 BASIC METABOLIC [id number] 03:58:00 Test Item Value Reference Range Comments SODIUM (BEAKER) (test 138 meq/L 136-145 pwds=182) POTASSIUM (BEAKER) (test 4.7 meq/L 3.5-5.1 twik=337) CHLORIDE (BEAKER) (test 98 meq/L 98-107 cuyu=262) CO2 (BEAKER) (test 27 meq/L 22-29 jjod=131) BLOOD UREA NITROGEN 27 mg/dL 7-21 (BEAKER) (test thzn=868) CREATININE (BEAKER) (test 1.43 mg/dL 0.57-1.25 nhmt=893) GLUCOSE RANDOM (BEAKER) 110 mg/dL 70-105 (test apwh=583) CALCIUM (BEAKER) (test 9.7 mg/dL 8.4-10.2 imjv=631) EGFR (BEAKER) (test 35 mL/min/1.73 sq m ESTIMATED GFR IS NOT esoo=2674) ACCURATE CREATININE CLEARANCE IN PREDICTING GLOMERULAR FILTRATION RATE. ESTIMATED GFR IS NOT APPLICABLE FOR DIALYSIS PATIENTS. TROPONIN [id number] 02:12:00 Test Item Value Reference Range Comments TROPONIN I (BEAKER) (test tdga=917) 0.01 ng/mL 0.00-0.03 Troponin I (TnI) levels [...] failure, acidosis, acute neurological disease, and persistent tachyarrhythmia.[id number] 02:06:00 Test Item Value Reference Range Comments MAGNESIUM (BEAKER) (test dqua=539) 2.1 mg/dL 1.6-2.6 CBC W/PLT COUNT & AUTO [id number] 20:23:00 Test Item Value Reference Range Comments WHITE BLOOD CELL COUNT (BEAKER) (test yybz=315) 13.9 K/ L 3.5-10.5 RED BLOOD CELL COUNT (BEAKER) (test hnnj=700) 4.06 M/ L 3.93-5.22 HEMOGLOBIN (BEAKER) (test szgf=080) 10.5 GM/DL 11.2-15.7 HEMATOCRIT (BEAKER) (test jadl=149) 34.3 % 34.1-44.9 MEAN CORPUSCULAR VOLUME (BEAKER) (test haun=645) 84.5 fL 79.4-94.8 MEAN CORPUSCULAR HEMOGLOBIN (BEAKER) (test 25.9 pg 25.6-32.2 efzw=705) MEAN CORPUSCULAR HEMOGLOBIN CONC (BEAKER) (test 30.6 GM/DL 32.2-35.5 msyw=873) RED CELL DISTRIBUTION WIDTH (BEAKER) (test 13.3 % 11.7-14.4 ppxs=588) PLATELET COUNT (BEAKER) (test rgya=521) 326 K/CU MM 150-450 MEAN PLATELET VOLUME (BEAKER) (test zfcc=783) 9.7 fL 9.4-12.3 NUCLEATED RED BLOOD CELLS (BEAKER) (test 0 /100 WBC 0-0 rkcc=709) NEUTROPHILS RELATIVE PERCENT (BEAKER) (test 76 % iamb=090) LYMPHOCYTES RELATIVE PERCENT (BEAKER) (test 16 % ilzu=020) MONOCYTES RELATIVE PERCENT (BEAKER) (test 5 % lhod=192) EOSINOPHILS RELATIVE PERCENT (BEAKER) (test 1 % khjc=066) BASOPHILS RELATIVE PERCENT (BEAKER) (test 1 % nrrz=569) NEUTROPHILS ABSOLUTE COUNT (BEAKER) (test 10.66 K/ L 1.56-6.13 bivd=560) LYMPHOCYTES ABSOLUTE COUNT (BEAKER) (test 2.28 K/ L 1.18-3.74 svbn=555) MONOCYTES ABSOLUTE COUNT (BEAKER) (test 0.74 K/ L 0.24-0.36 sylk=374) EOSINOPHILS ABSOLUTE COUNT (BEAKER) (test 0.13 K/ L 0.04-0.36 pkmw=079) BASOPHILS ABSOLUTE COUNT (BEAKER) (test 0.08 K/ L 0.01-0.08 zieh=254) IMMATURE GRANULOCYTES-RELATIVE PERCENT (BEAKER) 0 % 0-1 (test rkae=9914) BASIC METABOLIC [id number] 05:58:00 Test Item Value Reference Range Comments SODIUM (BEAKER) (test 139 meq/L 136-145 dqam=834) POTASSIUM (BEAKER) (test 4.3 meq/L 3.5-5.1 lemb=982) CHLORIDE (BEAKER) (test 97 meq/L 98-107 fxyj=765) CO2 (BEAKER) (test 34 meq/L 22-29 iuyi=914) BLOOD UREA NITROGEN 16 mg/dL 7-21 (BEAKER) (test ufao=696) CREATININE (BEAKER) (test 0.81 mg/dL 0.57-1.25 ejvx=925) GLUCOSE RANDOM (BEAKER) 126 mg/dL 70-105 (test qmhl=386) CALCIUM (BEAKER) (test 9.8 mg/dL 8.4-10.2 eimk=212) EGFR (BEAKER) (test 67 mL/min/1.73 sq m ESTIMATED GFR IS NOT swld=3661) ACCURATE CREATININE CLEARANCE IN PREDICTING GLOMERULAR FILTRATION RATE. ESTIMATED GFR IS NOT APPLICABLE FOR DIALYSIS PATIENTS. CBC (HEMOGRAM ONLY)2018-09-05 05:33:00 Test Item Value Reference Range Comments WHITE BLOOD CELL COUNT (BEAKER) (test tisp=753) 14.3 K/ L 3.5-10.5 RED BLOOD CELL COUNT (BEAKER) (test zmmx=211) 3.26 M/ L 3.93-5.22 HEMOGLOBIN (BEAKER) (test hopc=606) 9.0 GM/DL 11.2-15.7 HEMATOCRIT (BEAKER) (test npin=597) 29.6 % 34.1-44.9 MEAN CORPUSCULAR VOLUME (BEAKER) (test eavv=891) 90.8 fL 79.4-94.8 MEAN CORPUSCULAR HEMOGLOBIN (BEAKER) (test 27.6 pg 25.6-32.2 nznk=164) MEAN CORPUSCULAR HEMOGLOBIN CONC (BEAKER) (test 30.4 GM/DL 32.2-35.5 abbf=690) RED CELL DISTRIBUTION WIDTH (BEAKER) (test 12.7 % 11.7-14.4 znpz=211) PLATELET COUNT (BEAKER) (test ajzj=618) 302 K/CU MM 150-450 MEAN PLATELET VOLUME (BEAKER) (test kfot=153) 10.7 fL 9.4-12.3 NUCLEATED RED BLOOD CELLS (BEAKER) (test 0 /100 WBC 0-0 gaea=599) THROMBOELASTOGRAPH (TEG)2018-09-04 20:35:00 Test Item Value Reference Range Comments TEG ACTIVATED CLOTTING TIME (BEAKER) (test 4.5 minutes 4.0-7.0 hyco=0351) TEG FIBRINOGEN ACTIVITY (BEAKER) (test 78.3 degrees 61.0-73.0 rwcn=0469) TEG PLT. AGGREGATION (BEAKER) (test jbyx=4889) 71.4 MM 55.0-65.0 TEG FIBRINOLYSIS (BEAKER) (test upda=1125) 1.0 % 0.0-5.0 TGH ACTIVATED CLOTTING TIME (BEAKER) (test 4.5 minutes 4.0-7.0 lwsw=2083) TGH FIBRINOGEN ACTIVITY (BEAKER) (test 75.3 degrees 61.0-73.0 jigl=7243) TGH PLT. AGGREGATION (BEAKER) (test mugg=0359) 62.9 MM 55.0-65.0 TGH FIBRINOLYSIS (BEAKER) (test lsvi=8798) 2.2 % 0.0-5.0 HEMOGLOBIN AND [id number] 18:46:00 Test Item Value Reference Range Comments HEMOGLOBIN (BEAKER) (test eqjq=008) 8.6 GM/DL 11.2-15.7 HEMATOCRIT (BEAKER) (test zyfi=577) 27.7 % 34.1-44.9 HEMOGLOBIN AND [id number] 17:10:00 Test Item Value Reference Range Comments HEMOGLOBIN (BEAKER) (test bdlg=144) 7.6 GM/DL 11.2-15.7 HEMATOCRIT (BEAKER) (test vrrs=975) 24.4 % 34.1-44.9 T4, [id number] 14:16:00 Test Item Value Reference Range Comments FREE T4 (BEAKER) (test ctjr=546) 1.14 ng/dL 0.70-1.48 TSH/FREE T4 IF [id number] 13:15:00 Test Item Value Reference Range Comments THYROID STIMULATING HORMONE (BEAKER) (test 0.01 uIU/mL 0.35-4.94 nfmp=888) CBC (HEMOGRAM ONLY)2018-09-04 11:11:00 Test Item Value Reference Range Comments WHITE BLOOD CELL COUNT (BEAKER) (test iitx=990) 7.7 K/ L 3.5-10.5 RED BLOOD CELL COUNT (BEAKER) (test fhnt=027) 3.31 M/ L 3.93-5.22 HEMOGLOBIN (BEAKER) (test atbf=253) 9.0 GM/DL 11.2-15.7 HEMATOCRIT (BEAKER) (test afwr=149) 29.7 % 34.1-44.9 MEAN CORPUSCULAR VOLUME (BEAKER) (test tmjg=348) 89.7 fL 79.4-94.8 MEAN CORPUSCULAR HEMOGLOBIN (BEAKER) (test 27.2 pg 25.6-32.2 eteo=022) MEAN CORPUSCULAR HEMOGLOBIN CONC (BEAKER) (test 30.3 GM/DL 32.2-35.5 dmzk=091) RED CELL DISTRIBUTION WIDTH (BEAKER) (test 12.5 % 11.7-14.4 tewu=110) PLATELET COUNT (BEAKER) (test tzbc=861) 292 K/CU MM 150-450 MEAN PLATELET VOLUME (BEAKER) (test inok=298) 10.5 fL 9.4-12.3 NUCLEATED RED BLOOD CELLS (BEAKER) (test 0 /100 WBC 0-0 eple=198) [id number] 04:37:00 Test Item Value Reference Range Comments MAGNESIUM (BEAKER) (test njxc=988) 1.8 mg/dL 1.6-2.6 BASIC METABOLIC [id number] 04:37:00 Test Item Value Reference Range Comments SODIUM (BEAKER) (test 137 meq/L 136-145 ugzx=966) POTASSIUM (BEAKER) (test 4.4 meq/L 3.5-5.1 dvhy=427) CHLORIDE (BEAKER) (test 94 meq/L 98-107 hyzn=390) CO2 (BEAKER) (test 35 meq/L 22-29 dkef=867) BLOOD UREA NITROGEN 14 mg/dL 7-21 (BEAKER) (test aqgq=747) CREATININE (BEAKER) (test 0.88 mg/dL 0.57-1.25 uaep=713) GLUCOSE RANDOM (BEAKER) 183 mg/dL 70-105 (test hsre=648) CALCIUM (BEAKER) (test 9.2 mg/dL 8.4-10.2 dlvj=019) EGFR (BEAKER) (test 61 mL/min/1.73 sq m ESTIMATED GFR IS NOT jvjp=6328) ACCURATE CREATININE CLEARANCE IN PREDICTING GLOMERULAR FILTRATION RATE. ESTIMATED GFR IS NOT APPLICABLE FOR DIALYSIS PATIENTS. HEPATIC FUNCTION [id number] 04:37:00 Test Item Value Reference Range Comments TOTAL PROTEIN (BEAKER) (test rizz=023) 7.7 gm/dL 6.0-8.3 ALBUMIN (BEAKER) (test jrux=4345) 3.5 g/dL 3.5-5.0 BILIRUBIN TOTAL (BEAKER) (test zlud=660) 0.3 mg/dL 0.2-1.2 BILIRUBIN DIRECT (BEAKER) (test vrpa=782) 0.2 mg/dL 0.1-0.5 ALKALINE PHOSPHATASE (BEAKER) (test gpqu=139) 72 U/L 40-150 AST (SGOT) (BEAKER) (test sfri=151) 16 U/L 5-34 ALT (SGPT) (BEAKER) (test hqga=454) 10 U/L 6-55 [id number] 04:33:00 Test Item Value Reference Range Comments PROTIME (BEAKER) (test djgq=363) 15.4 seconds 11.9-14.2 INR (BEAKER) (test ruut=862) 1.3 <=5.9 PARTIAL THROMBOPLASTIN TIME (BEAKER) (test 38.0 seconds 22.5-36.0 tnzs=357) Effective 08/17/2018: PT Reference Range ChangeNew: 11.9-14.2 Previous: 11.7- 14.7RECOMMENDED COUMADIN/WARFARIN INR THERAPY RANGESSTANDARD DOSE: 2.0-3.0 Includes: PROPHYLAXIS for venous thrombosis, systemic embolization; TREATMENT for venous thrombosis and/or pulmonary embolus.HIGH RISK: Target INR is2.5-3.5 for patients wiht mechanical heart valves.CBC (HEMOGRAM ONLY)2018-09-04 04:11:00 Test Item Value Reference Range Comments WHITE BLOOD CELL COUNT (BEAKER) (test fncx=544) 10.9 K/ L 3.5-10.5 RED BLOOD CELL COUNT (BEAKER) (test chzp=023) 3.79 M/ L 3.93-5.22 HEMOGLOBIN (BEAKER) (test vzia=012) 10.5 GM/DL 11.2-15.7 HEMATOCRIT (BEAKER) (test jlqk=424) 34.3 % 34.1-44.9 MEAN CORPUSCULAR VOLUME (BEAKER) (test frjm=945) 90.5 fL 79.4-94.8 MEAN CORPUSCULAR HEMOGLOBIN (BEAKER) (test 27.7 pg 25.6-32.2 oddm=074) MEAN CORPUSCULAR HEMOGLOBIN CONC (BEAKER) (test 30.6 GM/DL 32.2-35.5 mszb=438) RED CELL DISTRIBUTION WIDTH (BEAKER) (test 12.5 % 11.7-14.4 dodd=508) PLATELET COUNT (BEAKER) (test axdo=828) 322 K/CU MM 150-450 MEAN PLATELET VOLUME (BEAKER) (test przn=609) 10.3 fL 9.4-12.3 NUCLEATED RED BLOOD CELLS (BEAKER) (test 0 /100 WBC 0-0 grcn=985) BLOOD [id number] 00:00:00 Test Item Value Reference Range Comments CULTURE (BEAKER) (test nxvs=2986) No growth in 5 days BLOOD [id number] 00:00:00 Test Item Value Reference Range Comments CULTURE (BEAKER) (test bllt=1298) No growth in 5 days CLOSTRIDIUM DIFFICILE TOXIN [id number] 17:09:00 Test Item Value Reference Range Comments CLOSTRIDIUM DIFFICILE TOXIN, PCR (BEAKER) (test Not Detected Not Detected bcng=3060) This qualitative real-time polymerase chain reaction assay [...] a positive result is not recommended.BASIC METABOLIC [id number] 10:06:00 Test Item Value Reference Range Comments SODIUM (BEAKER) (test 138 meq/L 136-145 yyaj=477) POTASSIUM (BEAKER) (test 4.2 meq/L 3.5-5.1 Specimen slightly ijpr=599) hemolyzed CHLORIDE (BEAKER) (test 104 meq/L 98-107 vpji=612) CO2 (BEAKER) (test 24 meq/L 22-29 pkqi=207) BLOOD UREA NITROGEN 26 mg/dL 7-21 (BEAKER) (test hsiy=476) CREATININE (BEAKER) (test 0.94 mg/dL 0.57-1.25 Specimen slightly heqm=357) hemolyzed GLUCOSE RANDOM (BEAKER) 100 mg/dL 70-105 (test tmpc=094) CALCIUM (BEAKER) (test 8.8 mg/dL 8.4-10.2 iwgd=809) EGFR (BEAKER) (test 57 mL/min/1.73 sq m ESTIMATED GFR IS NOT gzzo=5527) ACCURATE CREATININE CLEARANCE IN PREDICTING GLOMERULAR FILTRATION RATE. ESTIMATED GFR IS NOT APPLICABLE FOR DIALYSIS PATIENTS. CBC W/PLT COUNT & AUTO [id number] 09:48:00 Test Item Value Reference Range Comments WHITE BLOOD CELL COUNT 12.9 K/ L 3.5-10.5 (BEAKER) (test nolr=467) RED BLOOD CELL COUNT (BEAKER) 4.59 M/ L 3.93-5.22 (test opgo=831) HEMOGLOBIN (BEAKER) (test 13.4 GM/DL 11.2-15.7 anqp=972) HEMATOCRIT (BEAKER) (test 43.1 % 34.1-44.9 yfad=992) MEAN CORPUSCULAR VOLUME 93.9 fL 79.4-94.8 (BEAKER) (test dvbi=139) MEAN CORPUSCULAR HEMOGLOBIN 29.2 pg 25.6-32.2 (BEAKER) (test ccla=794) MEAN CORPUSCULAR HEMOGLOBIN 31.1 GM/DL 32.2-35.5 CONC (BEAKER) (test wrlx=208) RED CELL DISTRIBUTION WIDTH 12.8 % 11.7-14.4 (BEAKER) (test tgvq=580) PLATELET COUNT (BEAKER) (test 286 K/CU MM 150-450 .Discordant from previous grjj=608) results. Clinical correlation suggested. MEAN PLATELET VOLUME (BEAKER) 10.3 fL 9.4-12.3 (test uvpf=457) NUCLEATED RED BLOOD CELLS 0 /100 WBC 0-0 (BEAKER) (test engk=087) NEUTROPHILS RELATIVE PERCENT 70 % (BEAKER) (test jiko=220) LYMPHOCYTES RELATIVE PERCENT 17 % (BEAKER) (test vmgo=292) MONOCYTES RELATIVE PERCENT 8 % (BEAKER) (test pyfa=936) EOSINOPHILS RELATIVE PERCENT 3 % (BEAKER) (test ceqz=424) BASOPHILS RELATIVE PERCENT 1 % (BEAKER) (test ikar=033) NEUTROPHILS ABSOLUTE COUNT 9.04 K/ L 1.56-6.13 (BEAKER) (test asvk=048) LYMPHOCYTES ABSOLUTE COUNT 2.22 K/ L 1.18-3.74 (BEAKER) (test ezhm=116) MONOCYTES ABSOLUTE COUNT 0.99 K/ L 0.24-0.36 (BEAKER) (test pyfi=447) EOSINOPHILS ABSOLUTE COUNT 0.32 K/ L 0.04-0.36 (BEAKER) (test rvqz=313) BASOPHILS ABSOLUTE COUNT 0.15 K/ L 0.01-0.08 (BEAKER) (test mgqq=398) IMMATURE 1 % 0-1 GRANULOCYTES-RELATIVE PERCENT (BEAKER) (test kblw=7118) RAD, FOOT, 2 VIEWS, [id number] 16:52:00Reason for exam:->pain with ambulationFINAL REPORT Radiograph [...] Peterson Verified Date/Time: 01/12/2017 16:52:45 Reading Location: [address] Consult Reading Room T4, [id number] 16:26:00 Test Item Value Reference Range Comments FREE T4 (BEAKER) (test zpoj=729) 1.12 ng/dL 0.70-1.48 TSH/FREE T4 IF [id number] 15:46:00 Test Item Value Reference Range Comments THYROID STIMULATING HORMONE (BEAKER) (test 0.03 uIU/mL 0.35-4.94 ynrx=015) BASIC METABOLIC [id number] 15:35:00 Test Item Value Reference Range Comments SODIUM (BEAKER) (test 136 meq/L 136-145 haci=099) POTASSIUM (BEAKER) (test 4.1 meq/L 3.5-5.1 mcmo=781) CHLORIDE (BEAKER) (test 99 meq/L 98-107 oebb=441) CO2 (BEAKER) (test 24 meq/L 22-29 tmkm=377) BLOOD UREA NITROGEN 32 mg/dL 7-21 (BEAKER) (test ejyq=447) CREATININE (BEAKER) (test 1.12 mg/dL 0.57-1.25 qplb=970) GLUCOSE RANDOM (BEAKER) 164 mg/dL 70-105 (test lryj=655) CALCIUM (BEAKER) (test 10.2 mg/dL 8.4-10.2 wike=949) EGFR (BEAKER) (test 46 mL/min/1.73 sq m ESTIMATED GFR IS NOT mpld=2557) ACCURATE CREATININE CLEARANCE IN PREDICTING GLOMERULAR FILTRATION RATE. ESTIMATED GFR IS NOT APPLICABLE FOR DIALYSIS PATIENTS. CBC W/PLT COUNT & AUTO [id number] 15:06:00 Test Item Value Reference Range Comments WHITE BLOOD CELL COUNT (BEAKER) (test jpjq=905) 17.4 K/ L 3.5-10.5 RED BLOOD CELL COUNT (BEAKER) (test wmgw=809) 4.93 M/ L 3.93-5.22 HEMOGLOBIN (BEAKER) (test xzvp=444) 14.0 GM/DL 11.2-15.7 HEMATOCRIT (BEAKER) (test errz=200) 44.8 % 34.1-44.9 MEAN CORPUSCULAR VOLUME (BEAKER) (test igzh=767) 90.9 fL 79.4-94.8 MEAN CORPUSCULAR HEMOGLOBIN (BEAKER) (test 28.4 pg 25.6-32.2 omqy=490) MEAN CORPUSCULAR HEMOGLOBIN CONC (BEAKER) (test 31.3 GM/DL 32.2-35.5 ookz=669) RED CELL DISTRIBUTION WIDTH (BEAKER) (test 12.9 % 11.7-14.4 tglb=587) PLATELET COUNT (BEAKER) (test zxsk=496) 360 K/CU MM 150-450 MEAN PLATELET VOLUME (BEAKER) (test gsgg=817) 10.5 fL 9.4-12.3 NUCLEATED RED BLOOD CELLS (BEAKER) (test 0 /100 WBC 0-0 uojm=335) NEUTROPHILS RELATIVE PERCENT (BEAKER) (test 82 % aprq=578) LYMPHOCYTES RELATIVE PERCENT (BEAKER) (test 11 % wdqr=205) MONOCYTES RELATIVE PERCENT (BEAKER) (test 4 % scef=035) EOSINOPHILS RELATIVE PERCENT (BEAKER) (test 0 % gsad=878) BASOPHILS RELATIVE PERCENT (BEAKER) (test 1 % nzlq=082) NEUTROPHILS ABSOLUTE COUNT (BEAKER) (test 14.33 K/ L 1.56-6.13 kumg=448) LYMPHOCYTES ABSOLUTE COUNT (BEAKER) (test 1.97 K/ L 1.18-3.74 elnn=077) MONOCYTES ABSOLUTE COUNT (BEAKER) (test 0.71 K/ L 0.24-0.36 cmdf=758) EOSINOPHILS ABSOLUTE COUNT (BEAKER) (test 0.05 K/ L 0.04-0.36 celr=954) BASOPHILS ABSOLUTE COUNT (BEAKER) (test 0.16 K/ L 0.01-0.08 kukx=154) IMMATURE GRANULOCYTES-RELATIVE PERCENT (BEAKER) 1 % 0-1 (test osnj=6872) URINE [id number] 08:21:00 Test Item Value Reference Range Comments CULTURE (BEAKER) (test jnbu=5591) Amikacin (test code=1) Ampicillin + Sulbactam (test code=6) Aztreonam (test code=32) Cefepime (test code=51) Cefoxitin (test code=68) Ceftazidime (test code=27) Ceftriaxone (test code=52) Ertapenem (test code=38) Gentamicin (test code=18) Levofloxacin (test code=22) Meropenem (test code=34) Nitrofurantoin (test code=23) Piperacillin + Tazobactam (test code=29) Tetracycline (test code=2) Tobramycin (test code=25) Trimethoprim + Sulfamethoxazole (test code=47) CULTURE (BEAKER) (test rjli=5369) >100,000 col/mL Proteus mirabilis <10,000 col/mL skin ranjith<10,000 col/mL gram negative rods of a second typeMR, BRAIN, WITHOUT [id number] 16:03:00Reason for exam:->Ischemic Stroke EvaluationFINAL REPORT MRI [...] MDReport Verified Date/Time: 16:03:04 Reading Location: [address] Neuro Reading Room URINALYSIS W/ [id number] 15:35:00 Test Item Value Reference Range Comments COLOR (BEAKER) (test vtkq=889) Light Yellow CLARITY (BEAKER) (test tpzk=046) Hazy SPECIFIC GRAVITY UA (BEAKER) (test gfmo=214) 1.010 1.001-1.035 PH UA (BEAKER) (test hkpq=937) 8.0 5.0-8.0 PROTEIN UA (BEAKER) (test mpyl=175) 20 mg/dL Negative GLUCOSE UA (BEAKER) (test qsbr=073) Negative Negative KETONES UA (BEAKER) (test pdnh=375) Negative Negative BILIRUBIN UA (BEAKER) (test cfnd=156) Negative Negative BLOOD UA (BEAKER) (test riwi=556) Negative Negative NITRITE UA (BEAKER) (test jywa=479) Negative Negative LEUKOCYTE ESTERASE UA (BEAKER) (test lvfc=614) Large Negative UROBILINOGEN UA (BEAKER) (test xtlz=756) 0.2 mg/dL 0.2-1.0 RBC UA (BEAKER) (test zvrc=502) 2 /HPF WBC UA (BEAKER) (test kpyy=624) 87 /HPF SQUAMOUS EPITHELIAL (BEAKER) (test hygr=261) 3 /HPF SOURCE(BEAKER) (test zexk=2269) Urine, Voided URINALYSIS W/ REFLEX URINE [id number] 15:35:00 Test Item Value Reference Range Comments COLOR (BEAKER) (test rieb=599) Light Yellow CLARITY (BEAKER) (test ytyv=244) Hazy SPECIFIC GRAVITY UA (BEAKER) (test hvdx=558) 1.010 1.001-1.035 PH UA (BEAKER) (test mivd=113) 8.0 5.0-8.0 PROTEIN UA (BEAKER) (test wnyy=303) 20 mg/dL Negative GLUCOSE UA (BEAKER) (test evuf=723) Negative Negative KETONES UA (BEAKER) (test pbrx=812) Negative Negative BILIRUBIN UA (BEAKER) (test lgae=930) Negative Negative BLOOD UA (BEAKER) (test qrot=912) Negative Negative NITRITE UA (BEAKER) (test gxsp=462) Negative Negative LEUKOCYTE ESTERASE UA (BEAKER) (test xzcy=217) Large Negative UROBILINOGEN UA (BEAKER) (test npmc=678) 0.2 mg/dL 0.2-1.0 RBC UA (BEAKER) (test hgiw=067) 2 /HPF WBC UA (BEAKER) (test fjqs=072) 87 /HPF SQUAMOUS EPITHELIAL (BEAKER) (test wiht=815) 3 /HPF SOURCE(BEAKER) (test ypez=0134) Urine, Voided [id number] 14:30:00 Test Item Value Reference Range Comments RPR SCREEN (BEAKER) (test gxyn=813) Nonreactive Nonreactive HEMOGLOBIN [id number] 10:58:00 Test Item Value Reference Range Comments HEMOGLOBIN A1C (BEAKER) (test yclj=471) 5.8 % 4.3-6.1 SEDIMENTATION [id number] 10:44:00 Test Item Value Reference Range Comments SEDIMENTATION RATE, ERYTHROCYTE (BEAKER) (test 52 mm/HR 0-40 tnom=874) T4, [id number] 09:16:00 Test Item Value Reference Range Comments FREE T4 (BEAKER) (test htut=068) 0.94 ng/dL 0.70-1.48 TSH/FREE T4 IF [id number] 08:42:00 Test Item Value Reference Range Comments THYROID STIMULATING HORMONE (BEAKER) (test 0.05 uIU/mL 0.35-4.94 ehrl=712) VITAMIN B12 AND [id number] 08:37:00 Test Item Value Reference Range Comments VITAMIN B12 (BEAKER) (test lyaq=855) 829 pg/mL 213-816 FOLATE (BEAKER) (test ngvi=011) 15.9 ng/mL >=7.0 [id number] 08:36:00 Test Item Value Reference Range Comments HOMOCYSTEINE (BEAKER) (test ffgr=260) 10.2 umol/L 5.1-15.4 LIPID [id number] 08:26:00 Test Item Value Reference Range Comments TRIGLYCERIDES (BEAKER) (test zwwd=815) 86 mg/dL CHOLESTEROL (BEAKER) (test bjod=548) 194 mg/dL HDL CHOLESTEROL (BEAKER) (test vpta=796) 66 mg/dL LDL CHOLESTEROL CALCULATED (BEAKER) (test 111 mg/dL eduz=182) Triglyceride Reference Range: Low Risk <150 Borderline 150- 199 High Risk 200-499 Very High Risk >=500Cholesterol Reference Range: Low Risk <200 Borderline 200-239 High Risk > 240HDL Cholesterol Reference Range: Low Risk >=60 High Risk <40LDL Cholesterol Reference Range: Optimal <100 Near Optimal 100-129 Borderline 130-159 High 160-189 Very High >=190 FastingBASIC METABOLIC [id number] 08:26:00 Test Item Value Reference Range Comments SODIUM (BEAKER) (test 136 meq/L 136-145 qvth=089) POTASSIUM (BEAKER) (test 4.7 meq/L 3.5-5.1 fpoy=139) CHLORIDE (BEAKER) (test 99 meq/L 98-107 fvot=007) CO2 (BEAKER) (test 24 meq/L 22-29 jnmq=440) BLOOD UREA NITROGEN 27 mg/dL 7-21 (BEAKER) (test ynfn=560) CREATININE (BEAKER) (test 1.04 mg/dL 0.57-1.25 ywhn=220) GLUCOSE RANDOM (BEAKER) 133 mg/dL 70-105 (test zccg=622) CALCIUM (BEAKER) (test 8.8 mg/dL 8.4-10.2 qdgp=376) EGFR (BEAKER) (test 51 mL/min/1.73 sq m ESTIMATED GFR IS NOT eybj=3819) ACCURATE CREATININE CLEARANCE IN PREDICTING GLOMERULAR FILTRATION RATE. ESTIMATED GFR IS NOT APPLICABLE FOR DIALYSIS PATIENTS. FastingHEPATIC FUNCTION [id number] 08:26:00 Test Item Value Reference Range Comments TOTAL PROTEIN (BEAKER) (test onlm=106) 6.8 gm/dL 6.0-8.3 ALBUMIN (BEAKER) (test hyar=1491) 3.4 g/dL 3.5-5.0 BILIRUBIN TOTAL (BEAKER) (test mflf=033) 0.6 mg/dL 0.2-1.2 BILIRUBIN DIRECT (BEAKER) (test alms=086) 0.2 mg/dL 0.1-0.5 ALKALINE PHOSPHATASE (BEAKER) (test avoq=097) 67 U/L 40-150 AST (SGOT) (BEAKER) (test zocf=510) 16 U/L 5-34 ALT (SGPT) (BEAKER) (test vbub=024) 11 U/L 6-55 FastingCREATINE KINASE (CK), TOTAL AND [id number] 08:26:00 Test Item Value Reference Range Comments CREATINE KINASE TOTAL (BEAKER) (test zwiv=278) 30 U/L 29-200 CREATINE KINASE-MB (BEAKER) (test gnwy=268) 0.8 ng/mL 0.0-6.6 CREATINE KINASE-MB INDEX (BEAKER) (test yteb=421) 2.7 % CK-MB Reference Range:<6.7 Normal6.7-10.0 Borderline>10.0 AbnormalFastingFastingC-REACTIVE [id number] 08:26:00 Test Item Value Reference Range Comments C-REACTIVE PROTEIN (BEAKER) (test iltf=693) 1.74 mg/dL 0.00-0.50 FastingCBC W/PLT COUNT & AUTO [id number] 07:57:00 Test Item Value Reference Range Comments WHITE BLOOD CELL COUNT (BEAKER) (test ircq=410) 16.6 K/ L 3.5-10.5 RED BLOOD CELL COUNT (BEAKER) (test ikjr=460) 4.21 M/ L 3.93-5.22 HEMOGLOBIN (BEAKER) (test ueuf=408) 12.3 GM/DL 11.2-15.7 HEMATOCRIT (BEAKER) (test yvgp=375) 38.4 % 34.1-44.9 MEAN CORPUSCULAR VOLUME (BEAKER) (test yvbz=299) 91.2 fL 79.4-94.8 MEAN CORPUSCULAR HEMOGLOBIN (BEAKER) (test 29.2 pg 25.6-32.2 uutk=474) MEAN CORPUSCULAR HEMOGLOBIN CONC (BEAKER) (test 32.0 GM/DL 32.2-35.5 xtup=738) RED CELL DISTRIBUTION WIDTH (BEAKER) (test 12.9 % 11.7-14.4 glfd=236) PLATELET COUNT (BEAKER) (test qvbm=207) 296 K/CU MM 150-450 MEAN PLATELET VOLUME (BEAKER) (test tcux=060) 10.3 fL 9.4-12.3 NUCLEATED RED BLOOD CELLS (BEAKER) (test 0 /100 WBC 0-0 gykq=478) NEUTROPHILS RELATIVE PERCENT (BEAKER) (test 78 % niwy=391) LYMPHOCYTES RELATIVE PERCENT (BEAKER) (test 15 % ukih=099) MONOCYTES RELATIVE PERCENT (BEAKER) (test 5 % dadp=638) EOSINOPHILS RELATIVE PERCENT (BEAKER) (test 1 % irji=125) BASOPHILS RELATIVE PERCENT (BEAKER) (test 1 % awjl=763) NEUTROPHILS ABSOLUTE COUNT (BEAKER) (test 12.92 K/ L 1.56-6.13 atfr=286) LYMPHOCYTES ABSOLUTE COUNT (BEAKER) (test 2.40 K/ L 1.18-3.74 kiga=428) MONOCYTES ABSOLUTE COUNT (BEAKER) (test 0.90 K/ L 0.24-0.36 hdra=609) EOSINOPHILS ABSOLUTE COUNT (BEAKER) (test 0.08 K/ L 0.04-0.36 vtqc=825) BASOPHILS ABSOLUTE COUNT (BEAKER) (test 0.11 K/ L 0.01-0.08 nwyj=253) IMMATURE GRANULOCYTES-RELATIVE PERCENT (BEAKER) 1 % 0-1 (test swmn=0456) TROPONIN [id number] 07:47:00 Test Item Value Reference Range Comments TROPONIN I (BEAKER) (test ywge=592) 0.01 ng/mL 0.00-0.03 Troponin I (TnI) levels [...]
[2018-12-08] MEDS ORDERED: IPRATROPIUM BROM 0.5MG/2.5ML ONE (01:28)
[2018-12-08] MEDS ORDERED: ALBUTEROL 2.5 MG/3 ML NEB SOL ONE (01:28)
[2018-12-08] MEDS ORDERED: FUROSEMIDE 40 MG/4 ML VIAL ONE (01:29)
[2018-12-08 02:04] LABS: Absolute Lymphocytes (CBC) 1.9 K/uL (0.7-4.9); Basophils % 0.7 % (0-1.3); Hematocrit 34.4 % (36.0-45.0); Lymphocytes % 8.6 % (15.3-44.8); MPV 8.8 fL (7.6-11.3); RBC Red Blood Cell Count 4.35 M/uL (3.86-4.86)
[2018-12-08 02:05] LABS: Protime INR 1.26
[2018-12-08 02:18] LABS: ALT/SGPT 15 U/L (12-78); AST/SGOT 14 U/L (15-37); Albumin 3.5 g/dL (3.4-5.0); Alkaline Phosphatase 95 U/L (45-117); BUN Blood Urea Nitrogen 19 mg/dL (7-18); Bicarbonate 31 mmol/L (21-32); Bilirubin Direct 0.1 mg/dL (0-0.2); Bilirubin Total 0.5 mg/dL (0.2-1.0); Glucose Level 150 mg/dL (74-106); NT PRO-BNP 1016 pg/mL (<450); Potassium 3.9 mmol/L (3.5-5.1); Protein, Total 8.3 g/dL (6.4-8.2); Sodium Level 137 mmol/L (136-145); Troponin (Emerg Dept Use Only) < 0.02 ng/mL (0.0-0.045)
[2018-12-08 03:14] LABS: Blood Morphology Comment NOT SEEN (NOT SEEN); Platelet Estimate ADEQ
[2018-12-08 03:23] LABS: Blood Gas Oxyhemoglobin 94.5 % (94-97); Blood O2 Saturation 96.1 % (92-98.5)
[2018-12-08] MEDS ORDERED: predniSONE 20 MG TAB ONE (03:54)
[2018-12-08] MEDS ORDERED: CEFEPIME 1 GM/100 ML BAG IV ONE (03:54)
--- NOTE | 2018-12-08 04:09 | ER ---
Nurse's Notes [facility] Name: Elida Pradhan Age: 83 yrs Sex: Female : 1935 Arrival Date: 12/08/2018 Time: 01:02 Bed 3 Private MD: Diagnosis: Acute respiratory failure;Chronic obstructive pulmonary disease with (acute) exacerbation Presentation: 12/08 01:03 Presenting complaint: EMS states: pt has been having SOB \T\ COPD exacerbation since this aa1 am. Reports pt initially 85% on 3L NC which improved to 100% on neb tx. Transition of care: patient was not received from another setting of care. Onset of symptoms was December 07, 2018. Risk Assessment: Do you want to hurt yourself or someone else? Patient reports no desire to harm self or others. Initial Sepsis Screen: Does the patient meet any 2 criteria? RR > 20 per min. HR > 90 bpm. Does the patient have a suspected source of infection? No. Patient's initial sepsis screen is negative. Care prior to arrival: Medication(s) given: Albuterol Neb x 1, Atrovent Neb x 1, Solu-Medrol 125 mg IVP IV initiated. 22 GA, in the right hand, Med neb given. Oxygen administered. via a nebulizer mask. 01:03 Method Of Arrival: EMS: [facility] aa1 01:03 Acuity: TALYA 2 aa1 Triage Assessment: 01:03 General: Appears in no apparent distress. uncomfortable, Behavior is calm, cooperative, rr5 appropriate for age. Respiratory: Onset: The symptoms/episode began/occurred gradually, the patient has mild shortness of breath. Historical: - Allergies: 01:09 Cipro; aa1 01:09 Levaquin; aa1 - Home Meds: 02:30 acetaminophen-codeine 300-30 mg Oral tab 1 tab every 4 hours [Active]; Aldactazide rr5 25-25 mg Oral tab 1 tab once daily [Active]; apixaban 2.5 mg Oral 1 tab 2 times per day [Active]; diazepam 5 mg Oral tab 1 tab 2 times per day [Active]; Kristin-Lanta 200-200-20 mg/5 mL Oral susp 30 mL every 2 hours [Active]; mirtazapine 15 mg Oral tab 1 tab nightly [Active]; prednisone 5 mg Oral tab once daily [Active]; venlafaxine 75 mg Oral cp24 1 cap once daily [Active]; metoprolol tartrate 50 mg Oral tab 1 tab 2 times per day [Active]; methimazole 10 mg Oral tab 1 tab once daily [Active]; Xopenex 1.25 mg/3 mL Inhl nebu 3 mL twice a day [Active]; - PMHx: 01:09 Anxiety; COPD; CHF; Dementia; Depression; DYSPHAGIA; GI Bleed; Hypertension; Myocardial aa1 infarction; - Immunization history:: Flu vaccine is up to date. - Social history:: Smoking status: Patient/guardian denies using tobacco. - Ebola Screening: : Patient denies exposure to infectious person Patient denies travel to an Ebola-affected area in the 21 days before illness onset. Screenin:29 Abuse screen: Denies threats or abuse. Denies injuries from another. Nutritional rr5 screening: No deficits noted. Tuberculosis screening: No symptoms or risk factors identified. Fall Risk IV access (20 points). Ambulatory Aid- Crutches/Cane/Walker (15 pts). Gait- Total Howell Fall Scale indicates High Risk Score (45 or more points). Fall prevention measures have been instituted. Side Rails Up X 2 Placed Close to Nursing Station Frequent Obs/Assessments Occuring As available patient and family educated on Fall Prevention Program and Strategies. Assessment: 01:20 General: Appears in no apparent distress. uncomfortable, Behavior is calm, cooperative, rr5 appropriate for age. Pain: Denies pain. Neuro: Level of Consciousness is awake, alert, obeys commands, Oriented to person, place, time, situation, Appropriate for age. 01:20 Cardiovascular: Capillary refill < 3 seconds Patient's skin is warm and dry. Edema is rr5 1+ to left foot, left toes, right foot and right toes Rhythm is sinus tachycardia with PACs. Respiratory: Reports shortness of breath Airway is patent Respiratory effort is even, with retractions, Respiratory pattern is symmetrical, tachypnea Breath sounds with wheezes. GI: Abdomen is obese. : No signs and/or symptoms were reported regarding the genitourinary system. EENT: No signs and/or symptoms were reported regarding the EENT system. Derm: Skin is fragile, is thin, Skin temperature is warm Bruising that is dark purple, on right arm and left arm. Musculoskeletal: Circulation, motion, and sensation intact. Capillary refill < 3 seconds. 02:00 Respiratory: Airway is patent Respiratory effort is even, unlabored, Respiratory rr5 pattern is regular, symmetrical, improved from wheezing sound. 02:09 Reassessment: Patient appears in no apparent distress at this time. Patient is alert, rr5 oriented x 3, equal unlabored respirations, skin warm/dry/pink. Patient states feeling better. Patient states symptoms have improved. 02:27 Reassessment: WBC 21.6 benji of laboratory called, ED provider aware. rr5 03:10 Reassessment: Patient appears in no apparent distress at this time. eyes closed rr5 breathing spontaneously connected to BIPAP. no complaints made. 03:40 Reassessment: Patient appears in no apparent distress at this time. Patient and/or rr5 family updated on plan of care and expected duration. Pain level reassessed. Patient is alert, oriented x 3, equal unlabored respirations, skin warm/dry/pink. review and reassess by ED provider for admission. Patient states feeling better. Patient states symptoms have improved. 04:00 Reassessment: as per ED provider no need to do fluid bolus now. rr5 04:00 Reassessment: verbal ordered by ED provider Blood C/S and lactate stat. rr5 04:10 Reassessment: Dr. Arnold at bedside of discuss plan of care with patient;. Neuro: Level lp1 of Consciousness is awake, alert, obeys commands, Oriented to person, place, situation. Respiratory: BiPAP in place. 05:15 Reassessment: Patient appears in no apparent distress at this time. flu and strep test rr5 sent,en route to CT scan to room. Vital Signs: 01:09 BP 184 / 97; Pulse 120; Resp 26; Temp 97.1; Pulse Ox 100% on Nebulizer Mask; Weight aa1 90.72 kg; Height 5 ft. 1 in. (154.94 cm); Pain 0/10; 02:00 BP 166 / 97; Pulse 117; Resp 23; Pulse Ox 100% on 40% BiPAP; rr5 03:00 BP 161 / 85; Pulse 115; Resp 23; Pulse Ox 98% on 35% BiPAP; rr5 03:43 BP 157 / 71; Pulse 110; Resp 20; Pulse Ox 100% on 35% BiPAP; rr5 04:30 BP 149 / 84; Pulse 105; Resp 23; Pulse Ox 99% on 35% BiPAP; rr5 04:58 BP 145 / 73; Pulse 106; Resp 22; Temp 97.8; Pulse Ox 98% on 35% BiPAP; rr5 05:15 BP 135 / 67; Pulse 101; Resp 18; Pulse Ox 97% on 35% BiPAP; lp1 01:09 Body Mass Index 37.79 (90.72 kg, 154.94 cm) aa1 ED Course: 01:02 Patient arrived in ED. aa1 01:08 Triage completed. aa1 01:09 Arm band placed on left wrist. aa1 01:09 Oxygen administration via nasal cannula \T\ 3L/min Response to oxygen therapy: symptoms rr5 improved. 01:09 Maintain EMS IV. Dressing intact. Good blood return noted. Site clean \T\ dry. Gauge \T\ rr 5 site: G22\T\right hand. 01:10 Patient has correct armband on for positive identification. Placed in gown. Bed in low rr5 position. Call light in reach. Side rails up X2. veneer taper on. Pulse ox on. NIBP on. 01:10 Lights dimmed. Warm blanket given. Pillow given. Head of bed elevated. rr5 01:22 Benjamin Mendez MD is Attending Physician. gs 01:25 Naveed Jarquin RN is Primary Nurse. rr5 01:39 X-ray completed. Portable x-ray completed in exam room. Patient tolerated procedure kw well. 01:45 Inserted saline lock: 22 gauge in left hand, using aseptic technique. Blood collected. rr5 01:56 XRAY Chest (1 view) In Process Unspecified. EDMS 03:59 Aram Arnold DO is Hospitalizing Provider. gs 04:15 First set of blood cultures drawn by me. lp1 04:30 No provider procedures requiring assistance completed. Patient admitted, IV remains in rr5 place. intact, No redness/swelling at site. 04:33 Second set of blood cultures drawn by me. lp1 Administered Medications: 01:40 Drug: Albuterol - atroVENT (3:1) (2.5 mg - 0.5 mg) 3 ml Route: Nebulizer; rr5 02:40 Follow up: Response: No adverse reaction rr5 01:45 Drug: Lasix 40 mg Route: IVP; Site: left hand; rr5 02:45 Follow up: Response: No adverse reaction rr5 04:00 Drug: predniSONE 40 mg Route: PO; lp1 05:00 Follow up: Response: No adverse reaction lp1 04:35 Drug: Cefepime 1 grams Route: IVPB; Rate: 200 ml/hr; Infused Over: 30 mins; Site: left lp1 hand; 05:10 Follow up: IV Status: Completed infusion; IV Intake: 100ml lp1 Intake: 05:10 IV: 100ml; Total: 100ml. lp1 Output: 04:14 Urine: 400ml (Voided); Total: 400ml. rr5 Outcome: 04:07 Decision to Hospitalize by Provider. 04:57 Admitted to Med/surg accompanied by tech, via stretcher, room 205, with oxygen, with rr5 chart, Report called to [facility] 04:57 Condition: stable 04:57 Instructed on the need for admit. 05:22 Patient left the ED. lp1 Signatures: Dispatcher [employer] EDMS Thea eKane RN RN aa1 Nikkie Bajwa Laura RN RN lp1 Benjamin Mendez MD MD gs Roque, Raymond RN RN rr5 Corrections: (The following items were deleted from the chart) 05:54 04:00 Reassessment: as per ED provider no need to do fluid bolus patient is CHF. rr5 rr5
--- NOTE | 2018-12-08 04:10 | EDPHYS ---
Physician Documentation [facility] Name: Elida Pradhan Age: 83 yrs Sex: Female : 1935 Arrival Date: 12/08/2018 Time: 01:02 Bed 3 Private MD: ED Physician Benjamin Mendez HPI: 12/08 03:51 This 83 yrs old Female presents to ER via EMS with complaints of Shortness Of gs Breath. 03:51 The patient has shortness of breath at rest. Onset: The symptoms/episode began/occurred gs acutely. Duration: The symptoms are continuous. The patient's shortness of breath has no apparent modifying factors. Associated signs and symptoms: Pertinent positives: productive cough, fever. Severity of symptoms: At their worst the symptoms were severe in the emergency department the symptoms are unchanged. 03:53 The patient has experienced similar episodes in the past, a few times. gs Historical: - Allergies: 01:09 Cipro; aa1 01:09 Levaquin; aa1 - Home Meds: 02:30 acetaminophen-codeine 300-30 mg Oral tab 1 tab every 4 hours [Active]; Aldactazide rr5 25-25 mg Oral tab 1 tab once daily [Active]; apixaban 2.5 mg Oral 1 tab 2 times per day [Active]; diazepam 5 mg Oral tab 1 tab 2 times per day [Active]; Kristin-Lanta 200-200-20 mg/5 mL Oral susp 30 mL every 2 hours [Active]; mirtazapine 15 mg Oral tab 1 tab nightly [Active]; prednisone 5 mg Oral tab once daily [Active]; venlafaxine 75 mg Oral cp24 1 cap once daily [Active]; metoprolol tartrate 50 mg Oral tab 1 tab 2 times per day [Active]; methimazole 10 mg Oral tab 1 tab once daily [Active]; Xopenex 1.25 mg/3 mL Inhl nebu 3 mL twice a day [Active]; - PMHx: 01:09 Anxiety; COPD; CHF; Dementia; Depression; DYSPHAGIA; GI Bleed; Hypertension; Myocardial aa1 infarction; - Immunization history:: Flu vaccine is up to date. - Social history:: Smoking status: Patient/guardian denies using tobacco. - Ebola Screening: : Patient denies exposure to infectious person Patient denies travel to an Ebola-affected area in the 21 days before illness onset. ROS: 03:53 All other systems are negative. gs Exam: 03:53 Head/Face: Normocephalic, atraumatic. Eyes: Pupils equal round and reactive to light, gs extra-ocular motions intact. Lids and lashes normal. Conjunctiva and sclera are non-icteric and not injected. Cornea within normal limits. Periorbital areas with no swelling, redness, or edema. ENT: Nares patent. No nasal discharge, no septal abnormalities noted. Tympanic membranes are normal and external auditory canals are clear. Oropharynx with no redness, swelling, or masses, exudates, or evidence of obstruction, uvula midline. Mucous membranes moist. Neck: Trachea midline, no thyromegaly or masses palpated, and no cervical lymphadenopathy. Supple, full range of motion without nuchal rigidity, or vertebral point tenderness. No Meningismus. Chest/axilla: Normal chest wall appearance and motion. Nontender with no deformity. No lesions are appreciated. 03:53 Abdomen/GI: Soft, non-tender, with normal bowel sounds. No distension or tympany. No guarding or rebound. No evidence of tenderness throughout. Back: No spinal tenderness. No costovertebral tenderness. Full range of motion. Skin: Warm, dry with normal turgor. Normal color with no rashes, no lesions, and no evidence of cellulitis. MS/ Extremity: Pulses equal, no cyanosis. Neurovascular intact. Full, normal range of motion. Neuro: Awake and alert, GCS 15, oriented to person, place, time, and situation. Cranial nerves II-XII grossly intact. Motor strength 5/5 in all extremities. Sensory grossly intact. Cerebellar exam normal. Normal gait. 03:53 Constitutional: The patient appears alert, awake, in obvious distress, severely distressed. 03:53 Cardiovascular: Rate: tachycardic, Rhythm: regular, Pulses: no pulse deficits are appreciated. 03:53 ECG was reviewed by the Attending Physician. 03:53 Respiratory: severe repiratory distress is noted, Respirations: normal, Breath sounds: rales, rhonchi, wheezing: Vital Signs: 01:09 BP 184 / 97; Pulse 120; Resp 26; Temp 97.1; Pulse Ox 100% on Nebulizer Mask; Weight aa1 90.72 kg; Height 5 ft. 1 in. (154.94 cm); Pain 0/10; 02:00 BP 166 / 97; Pulse 117; Resp 23; Pulse Ox 100% on 40% BiPAP; rr5 03:00 BP 161 / 85; Pulse 115; Resp 23; Pulse Ox 98% on 35% BiPAP; rr5 03:43 BP 157 / 71; Pulse 110; Resp 20; Pulse Ox 100% on 35% BiPAP; rr5 04:30 BP 149 / 84; Pulse 105; Resp 23; Pulse Ox 99% on 35% BiPAP; rr5 04:58 BP 145 / 73; Pulse 106; Resp 22; Temp 97.8; Pulse Ox 98% on 35% BiPAP; rr5 05:15 BP 135 / 67; Pulse 101; Resp 18; Pulse Ox 97% on 35% BiPAP; lp1 01:09 Body Mass Index 37.79 (90.72 kg, 154.94 cm) aa1 MDM: 01:24 Patient medically screened. 03:53 Differential diagnosis: CHF exacerbation, Chronic Obstructive Pulmonary Disease gs Myocardial Infarction pneumonia. Data reviewed: vital signs, nurses notes, lab test result(s), EKG, radiologic studies. Counseling: I had a detailed discussion with the patient and/or guardian regarding: the historical points, exam findings, and any diagnostic results supporting the discharge/admit diagnosis, the need for further work-up and treatment in the hospital. Response to treatment: the patient's symptoms have markedly improved after treatment, and as a result, I will admit patient. 12/08 01:25 Order name: Basic Metabolic Panel; Complete Time: 02:28 12/08 01:25 Order name: CBC with Diff; Complete Time: 03:38 12/08 01:25 Order name: LFT's; Complete Time: 02:28 12/08 01:25 Order name: Magnesium; Complete Time: 02:28 12/08 01:25 Order name: NT PRO-BNP; Complete Time: 02:28 12/08 01:25 Order name: PT-INR; Complete Time: 02:28 12/08 01:25 Order name: Troponin (emerg Dept Use Only); Complete Time: 02:28 12/08 01:25 Order name: XRAY Chest (1 view) 12/08 01:25 Order name: BIPAP 12/08 02:28 Order name: Manual Differential; Complete Time: 03:38 EDMS 12/08 03:08 Order name: ABG 12/08 04:08 Order name: Blood Culture Adult (2) rr5 12/08 04:08 Order name: Lactate rr5 12/08 01:25 Order name: EKG; Complete Time: : 12/08 01:25 Order name: Cardiac monitoring; Complete Time: : 12/08 01:25 Order name: EKG - Nurse/Tech; Complete Time: : 12/08 01:25 Order name: IV Saline Lock; Complete Time: : 12/08 01:25 Order name: Labs collected and sent; Complete Time: 12/08 01:25 Order name: O2 Per Protocol; Complete Time: 12/08 01:25 Order name: O2 Sat Monitoring; Complete Time: EC:53 Rate is 114 beats/min. Rhythm is regular. GA interval is normal. QRS interval is gs normal. QT interval is prolonged. T waves are Normal. No ST changes noted. Clinical impression: Sinus tachycardia. Interpreted by me. Administered Medications: 01:40 Drug: Albuterol - atroVENT (3:1) (2.5 mg - 0.5 mg) 3 ml Route: Nebulizer; rr5 02:40 Follow up: Response: No adverse reaction rr5 01:45 Drug: Lasix 40 mg Route: IVP; Site: left hand; rr5 02:45 Follow up: Response: No adverse reaction rr5 04:00 Drug: predniSONE 40 mg Route: PO; lp1 05:00 Follow up: Response: No adverse reaction lp1 04:35 Drug: Cefepime 1 grams Route: IVPB; Rate: 200 ml/hr; Infused Over: 30 mins; Site: left lp1 hand; 05:10 Follow up: IV Status: Completed infusion; IV Intake: 100ml lp1 Disposition: 03:53 Critical Care:. Disposition: 12/08/18 04:07 Hospitalization ordered by Aram Arnold for Inpatient Admission. Preliminary diagnosis are Acute respiratory failure, Chronic obstructive pulmonary disease with (acute) exacerbation. - Bed requested for Telemetry/MedSurg (Inpatient). - Status is Inpatient Admission. lp1 - Condition is Stable. - Problem is new. - Symptoms have improved. UTI on Admission? No Critical care time excluding procedures: 03:53 Critical care time: Bedside Care: 10 minutes, Consultation: 10 minutes, Family gs Intervention: 10 minutes. Total time: 30 minutes Signatures: Dispatcher [employer] Thea Zamorano RN RN aa1 Amada Hall RN RN lp1 Janet Maya RN RN Benjamin Mendez MD MD Naveed Jarquin RN RN rr5 Corrections: (The following items were deleted from the chart) 04:29 04:07 Hospitalization Ordered by Aram Arnold DO for Inpatient Admission. Preliminary cg diagnosis is Acute respiratory failure; Chronic obstructive pulmonary disease with (acute) exacerbation. Bed requested for Telemetry/MedSurg (Inpatient). Status is Inpatient Admission. Condition is Stable. Problem is new. Symptoms have improved. UTI on Admission? No. gs 05:22 04:29 12/08/2018 04:07 Hospitalization Ordered by Aram Arnold DO for Inpatient lp1 Admission. Preliminary diagnosis is Acute respiratory failure; Chronic obstructive pulmonary disease with (acute) exacerbation. Bed requested for Telemetry/MedSurg (Inpatient). Status is Inpatient Admission. Condition is Stable. Problem is new. Symptoms have improved. UTI on Admission? No. cg
[2018-12-08] MEDS ORDERED: LORazepam 2 MG/ML VIAL IV PRN (04:56)
[2018-12-08] MEDS ORDERED: ACETAMINOPHEN 500 MG TAB PO PRN (04:56)
[2018-12-08] MEDS ORDERED: ONDANSETRON 4 MG/2 ML VIAL IV PRN (04:56)
[2018-12-08] MEDS ORDERED: BENZONATATE 100 MG CAP PO PRN (04:56)
[2018-12-08] MEDS ORDERED: LOPERAMIDE HCL 2 MG CAPSULE PO PRN (04:56)
--- NOTE | 2018-12-08 05:11 | P.HP ---
Certification for Inpatient Patient admitted to: Inpatient With expected LOS: >2 Midnights Patient will require the following post-hospital care: Other (care home) Practitioner: I am a practitioner with admitting privileges, knowledge of patient current condition, hospital course, and medical plan of care. Services: Services provided to patient in accordance with Admission requirements found in Title 42 Section 412.3 of the Code of Federal Regulations Patient History Date of Service: 12/08/18 Primary Care Provider: care home physician; Pulmonary-Dr. Zamora Reason for admission: Fever, cough, shortness of breath History of Present Illness: 83-year-old female presented to the emergency room with fever, cough and shortness of breath. Patient lives at the long-term. Patient with underlying history of CAD, dementia, depression, COPD on chronic oxygen and steroids, atrial fibrillation on chronic anti coagulation therapy. Patient was brought in from the long-term due to fever, cough. Her shortness of breath has worsened. She noted increased wheezing, tachypnea and hypoxia. In the ER patient was evaluated. Patient was tachypneic and hypoxic in the emergency room. Patient required BiPAP. BiPAP was initiated. On lab white count 21.6, hemoglobin 10.9, platelet count of 321. Neutrophils 88. Troponin unremarkable. Pro calcitonin pending. Sodium 137, potassium 3.9, BUN of 19, creatinine 1.2 with a GFR 42. Blood gases showed a pH 7.39 with a pC02 of 50 and a PO2 of 81. Chest x-ray showed possible pneumonia bilateral. Patient started on antibiotic therapy in the ER-cefepime. Patient admitted for further evaluation and treatment. When I saw the patient in the ER, she remained on BiPAP but improved. Respiratory distress improved. Patient able to converse appropriately. Patient reports recent history of rectal bleeding. This required evaluation in [place]. She had a colonoscopy showing colon polyps. Allergies ciprofloxacin Adverse Reaction (Verified 01/21/18 18:54) Nausea/Vomiting levofloxacin [From Levaquin] Adverse Reaction (Verified 01/21/18 18:54) Nausea/Vomiting Home medications list reviewed: Yes Home Medications: ARIPiprazole [Abilify*] 5 mg PO DAILY 03/17/18 Albuterol Sulfate [Proair Hfa] 2 puff IH QID 03/17/18 Amlodipine [Norvasc*] 5 mg PO DAILY 03/17/18 Codeine/APAP [Tylenol #3*] 1 tab PO Q4HP PRN 03/17/18 Losartan Potassium [Cozaar*] 50 mg PO DAILY 03/17/18 Mirtazapine [Remeron*] 15 mg PO BEDTIME 03/17/18 Umeclidinium Brm/Vilanterol Tr [Anoro Ellipta 62.5-25 Mcg INH] 1 puff IH DAILY 03/17/18 Ursodiol 300 mg PO BID 03/17/18 Venlafaxine HCl [Venlafaxine HCl ER] 150 mg PO DAILY WITH BREAKFAST 03/17/18 diazePAM [Diazepam] 5 mg PO BEDTIME 03/17/18 Apixaban [Eliquis] 5 mg PO BID tablet 06/20/18 Arformoterol Tartrate [Brovana] 15 mcg NEB BIDRESP vial.neb 06/20/18 Sotalol HCl [Betapace*] 80 mg PO BID 6AM 6PM tab 06/20/18 cloNIDine HCl [Catapres*] 0.1 mg PO Q2HP PRN tab 06/20/18 Amox/Clavulanate [Augmentin 875-125 Tab*] 875 mg PO BID tab 06/28/18 Furosemide [Lasix*] 20 mg PO DAILY tab 06/28/18 Meropenem [Merrem 500 MG/100 ML NS IVPB] 500 mg IV Q8H 14 Days bag 07/05/18 - Past Medical/Surgical History Diabetic: No -: Hypertension -: CAD -: COPD, on chronic oxygen and steroids -: GERD -: Depression -: Dementia -: AFib on chronic anti coagulation therapy -: Hypertension -: Hyperthyroidism -: tonsilectomy @ 8 yrs old -: Cataract surgery Psychosocial/ Personal History: Patient lives at the long-term - Family History Father -: Kidney disease Notes: Bryte's disease Mother -: Stroke Sister -: Hypertension, Kidney disease Brother -: Cancer Notes: cancer of esophagus and colon cancer - Social History Smoking Status: Never smoker Alcohol use: No CD- Drugs: No Caffeine use: Yes Place of Residence: Shelter Review of Systems General: Fever, Weakness, As per HPI Eyes: Unremarkable ENT: Nose Congestion, As per HPI Respiratory: Shortness of Breath, SOB with Excertion, Wheezing, As per HPI Cardiovascular: Unremarkable Gastrointestinal: Unremarkable Genitourinary: Unremarkable Musculoskeletal: Unremarkable Integumentary: Unremarkable Neurological: Unremarkable Lymphatics: Unremarkable Physical Examination - Physical Exam General: Alert, In no apparent distress, Oriented x3, Cooperative HEENT: Atraumatic, Normocephalic, Mucous membr. moist/pink Neck: Supple, No Thyromegaly Respiratory: Diminished (Slightly diminished bilateral), Crackles/rales ( Crackles to the bases), Expiratory wheezes, Inspiratory wheezes Cardiovascular: Irregular heart rate/rhythm (AFib rate controlled) Gastrointestinal: Normal bowel sounds, Soft and benign, Non-distended, No tenderness, No masses, No rebound, No guarding Musculoskeletal: No erythema, No tenderness, No warmth Integumentary: No tenderness/swelling, No erythema, No warmth, No cyanosis Neurological: Normal speech, Normal strength at 5/5 x4 extr, Normal tone, Normal affect - Studies Laboratory Data (last 24 hrs) 12/08/18 01:45: PT 14.7 H, INR 1.26 12/08/18 01:45: WBC 21.6 H*, Hgb 10.9 L, Hct 34.4 L, Plt Count 321 12/08/18 01:45: Sodium 137, Potassium 3.9, BUN 19 H, Creatinine 1.22, Glucose 150 H, Magnesium 2.0, Total Bilirubin 0.5, AST 14 L, ALT 15, Alkaline Phosphatase 95 Assessment and Plan - Plan Impression: Acute on chronic respiratory failure with hypoxia and tachypnea likely secondary to COPD exacerbation with possible underlying bilateral pneumonia Chronic atrial fibrillation on chronic anti coagulation therapy Hypertension Depression with anxiety Hyperthyroidism GERD Plan: Acute on chronic respiratory failure with hypoxia and tachypnea likely secondary to COPD exacerbation with possible underlying bilateral pneumonia: Patient will be admitted for further evaluation and treatment. Continue BiPAP and wean off. Respiratory consulted to help in this process. Maintain sats above 93%. Will provide Xopenex, Atrovent and Brovana. Continue prednisone and oxygen. Patient on chronic oxygen and steroid at the long-term. Continue IV cefepime. Obtain sputum and blood culture. Will evaluate for strep and influenza. Will check CT scan of chest to further evaluate. Pulmonology consulted to further assess, await recommendation. Daytime hospitalist will continue her care. Likely discharge in the next 2-4 days with clinical improvement. Chronic atrial fibrillation on chronic anti coagulation therapy: Continue with rate control medication-metoprolol and chronic anti coagulation therapy-Eliquis. Hypertension: Continue metoprolol. Will monitor and adjust appropriately. Depression with anxiety: Continue home medication Effexor XR. Will provide medication for anxiety as needed Hyperthyroidism: Will continue with methimazole 15 mg daily GERD: Will provide Pepcid. Discharge Plan: Shelter Plan to discharge in: Greater than 2 days - Advance Directives Does patient have a Living Will: No Does patient have a Durable POA for Healthcare: Yes - Code Status/Comfort Care Code Status Assessed: Yes (Patient is full code) Time Spent Managing Pts Care (In Minutes): 55
[2018-12-08 06:06] VITALS: BMI 34.1
[2018-12-08] MEDS: ARFORMOTEROL TARTRATE 15 MCG/2 ML VIAL.NEB NEB SCH ×2 (07:35→19:40)
[2018-12-08] MEDS: LEVALBUTEROL 0.63 MG/3 ML NEB NEB PRN (07:35)
[2018-12-08] MEDS: IPRATROPIUM BROM 0.5MG/2.5ML NEB PRN ×2 (07:35→19:40)
[2018-12-08] MEDS ORDERED: PNEUMOCOCCAL VACCINE 0.5 ML IMVAC ONE (08:00)
--- NOTE | 2018-12-08 08:02 | RAD REPORT ---
EXAM DESCRIPTION: RAD - Chest Single View - 12/08/2018 1:42 am CLINICAL HISTORY: DYSPNEA Chest pain. COMPARISON: Chest Single View dated 09/03/2018; Chest Single View dated 06/30/2018; Chest Pa And Lat ( 2 Views) dated 06/29/2018; Chest Single View dated 06/26/2018 FINDINGS: Portable technique limits examination quality. The lungs are emphysematous but grossly clear. The heart is mildly enlarged. No displaced fractures. IMPRESSION: Mild COPD.
--- NOTE | 2018-12-08 08:08 | RAD REPORT ---
EXAM DESCRIPTION: CT - Thorax Wo Con CLINICAL HISTORY: Chest pain Respiratory failure. Evaluate for pneumonia COMPARISON: Thorax W/ Con dated 06/29/2018 FINDINGS: Enlargement of the left lobe of the thyroid seen. The lungs are mildly emphysematous but c lear. No pleural thickening or pleural effusion. No pneumothorax. The esophagus is mildly dilated wit h fluid. No axillary, mediastinal or hilar adenopathy. No concerning bony finding. No gross upper abdominal finding. All CT scans are performed using dose optimization technique as appropriate and may include automated exposure control or mA/KV adjustment according to patient size. IMPRESSION: Mild COPD.
--- NOTE | 2018-12-08 08:52 | P.CNS ---
Date of Consult: 12/08/18 Primary Care Provider: [facility] physician; Pulmonary-Dr. Zamora Chief Complaint: Respiratory failure History of Present Illness: Patient is 83 years of age with a history of COPD admitted with increasing cough congestion shortness of breath starting earlier this week she has a history of COPD is on oxygen using her bronchodilators at home as found to be hypoxic hypercapnic patient is anti coagulated has some chronic lower extremity edema denies any cough sputum or hemoptysis no chest pain Allergies ciprofloxacin Adverse Reaction (Verified 12/08/18 05:44) Rash; diarrhea levofloxacin [From Levaquin] Adverse Reaction (Verified 12/08/18 05:44) Rash; diarrhea Home Medications: Mirtazapine [Remeron*] 15 mg PO BEDTIME 03/17/18 Acetaminophen [Tylenol*] 1 supp [place] Q6H PRN 12/08/18 Acetaminophen [Tylenol] 2 tab PO Q6H PRN 12/08/18 Acetaminophen with Codeine [Tylenol with Codeine #3 Tablet] 1 tab PO Q4H PRN Albuterol Neb [Proventil 0.083% Neb Soln] 3 ml IH BID 12/08/18 Albuterol Sulfate [Proair Hfa] 2 puff IH Q6H PRN 12/08/18 Apixaban [Eliquis *] 1 tab PO BID 12/08/18 Diazepam [Valium] 1 tab PO Q12H PRN 12/08/18 Enema, Fleet Adult [Fleet Enema Adult*] 1 godfrey [place] DAILY PRN 12/08/18 Guaifenesin [Kristin-Tussin] 5 ml PO Q6H PRN 12/08/18 Ipratropium [place] 1 godfrey IH Q6H PRN 12/08/18 Loperamide HCl [Loperamide] 1 cap PO Q4H PRN 12/08/18 Loratadine 10 mg PO DAILY 12/08/18 Mag Hydrox/Aluminum Hyd/Simeth [Kristin-Lanta Liquid] 30 ml PO Q4H PRN 12/08/18 Mag Hydroxide 8% [Milk Of Magnesia*] 30 ml PO DAILY PRN 12/08/18 Metoprolol Tartrate [Lopressor*] 1 tab PO BID 12/08/18 Phenol [Chloraseptic] 2 spray PO Q4H PRN 12/08/18 Sodium Chloride [Saline Nose [place]] 2 spray IH SEECOM PRN 12/08/18 Venlafaxine HCl [Venlafaxine HCl ER] 75 mg PO DAILY 12/08/18 methIMAzole [Tapazole*] 15 mg PO DAILY 12/08/18 predniSONE [Prednisone*] 1 tab PO DAILY 12/08/18 - Past Medical/Surgical History Diabetic: No -: Hypertension -: CAD -: COPD, on chronic oxygen and steroids -: GERD -: Depression -: Dementia -: AFib on chronic anti coagulation therapy -: Hyperthyroidism -: UTI -: tonsillectomy @ 8 yrs old -: Cataract surgery both eyes Psychosocial/ Personal History: Patient lives at the senior living - Family History Father Medical History: Kidney disease Notes: Bryte's disease Mother Medical History: Stroke Sister Medical History: Hypertension, Kidney disease Brother Medical History: Cancer Notes: cancer of esophagus and colon cancer - Social History Smoking Status: Current every day smoker Alcohol use: No CD- Drugs: No Caffeine use: Yes Place of Residence: Skilled Nursing Review of Systems General: Weakness Respiratory: Cough, Shortness of Breath Physical Examination Temp Pulse Resp BP Pulse Ox 97.2 F 105 H 18 147/69 H 99 12/08/18 06:54 12/08/18 06:54 12/08/18 06:54 12/08/18 06:54 12/08/18 06:54 General: Alert, Oriented x3 Neck: Supple Respiratory: Clear to auscultation bilaterally Cardiovascular: Edema (Minimal edema) Gastrointestinal: Normal bowel sounds, Soft and benign Laboratory Data (last 24 hrs) 12/08/18 01:45: PT 14.7 H, INR 1.26 12/08/18 01:45: WBC 21.6 H*, Hgb 10.9 L, Hct 34.4 L, Plt Count 321 12/08/18 01:45: Sodium 137, Potassium 3.9, BUN 19 H, Creatinine 1.22, Glucose 150 H, Magnesium 2.0, Total Bilirubin 0.5, AST 14 L, ALT 15, Alkaline Phosphatase 95 - Problems (1) COPD exacerbation Onset Date: 07/09/16 Current Visit: No Status: Acute Plan: Patient is 83 years of age admitted with COPD exacerbation chest x-ray shows hyperinflation she will need a long-acting bronchodilator I did not see any on her latest patient has a mild microcytic anemia white count elevated continue with present therapy cultures are pending possible discharge once a white count is declining tomorrow
[2018-12-08] MEDS ORDERED: POTASSIUM CL SA 10 MEQ TAB PO ONE (09:00)
[2018-12-08] MEDS ORDERED: CEFEPIME 1 GM/VIAL IV SCH (09:00)
[2018-12-08] MEDS: FAMOTIDINE 20 MG TAB PO SCH ×2 (09:40→21:46)
[2018-12-08] MEDS: METOPROLOL TAR 50 MG TAB PO SCH ×2 (09:40→21:45)
[2018-12-08] MEDS: predniSONE 20 MG TAB PO SCH ×2 (09:41→21:46)
[2018-12-08] MEDS: LORATADINE 10 MG TAB PO SCH (09:41)
[2018-12-08] MEDS: VENLAFAXINE HCL XR 75 MG CAP PO SCH (09:41)
[2018-12-08] MEDS: APIXABAN 2.5 MG TABLET PO SCH ×2 (09:41→21:46)
[2018-12-08 12:41] LABS: Arterial Blood Carboxyhemoglob 1.4 % (0-1.5); Blood Gas Oxyhemoglobin 94.9 % (94-97); Blood O2 Saturation 96.7 % (92-98.5)
[2018-12-08] MEDS: CODEINE 30MG/APAP 300MG TAB PO PRN ×2 (19:40→23:39)
[2018-12-08] MEDS: MIRTAZAPINE 15 MG TAB PO SCH (21:45)
[2018-12-08] MEDS: CEFEPIME/SWI 1gm 10 ML IV SCH (21:46)
[2018-12-09] MEDS: IPRATROPIUM BROM 0.5MG/2.5ML NEB PRN ×2 (05:10→13:33)
[2018-12-09] MEDS: LEVALBUTEROL 0.63 MG/3 ML NEB NEB PRN ×2 (05:10→13:33)
[2018-12-09] MEDS: ARFORMOTEROL TARTRATE 15 MCG/2 ML VIAL.NEB NEB SCH ×2 (05:10→19:40)
[2018-12-09 05:46] LABS: Absolute Lymphocytes (CBC) 0.9 K/uL (0.7-4.9); Basophils % 0.3 % (0-1.3); Hematocrit 29.6 % (36.0-45.0); Lymphocytes % 5.1 % (15.3-44.8); MPV 8.9 fL (7.6-11.3); RBC Red Blood Cell Count 3.75 M/uL (3.86-4.86)
[2018-12-09 06:02] LABS: Magnesium 2.4 mg/dL (1.8-2.4)
--- NOTE | 2018-12-09 08:19 | RAD REPORT ---
EXAM DESCRIPTION: RAD - Chest Pa And Lat (2 Views) - 12/09/2018 7:40 am CLINICAL HISTORY: Follow respiratory failure/COPD COMPARISON: December 08June 2018 TECHNIQUE: PA and lateral views of the chest were obtained. FINDINGS: The lungs are clear of a focal consolidation or mass. Interstitial pattern matches prior d ay imaging. Heart size is normal and central vasculature is within normal limits. No pleural effus ion or pneumothorax seen. Osteopenic changes are present. The 50% wedge compression deformity of a midthoracic vertebrae is sta ble from June. No aortic abnormality. IMPRESSION: Stable chest examination from prior day imaging.
[2018-12-09] MEDS: METOPROLOL TAR 50 MG TAB PO SCH ×2 (08:23→20:46)
[2018-12-09] MEDS: APIXABAN 2.5 MG TABLET PO SCH ×2 (08:24→20:45)
[2018-12-09] MEDS: VENLAFAXINE HCL XR 75 MG CAP PO SCH (08:24)
[2018-12-09] MEDS: predniSONE 20 MG TAB PO SCH ×2 (08:24→20:46)
[2018-12-09] MEDS: FAMOTIDINE 20 MG TAB PO SCH ×2 (08:26→20:44)
[2018-12-09] MEDS: LORATADINE 10 MG TAB PO SCH (08:27)
[2018-12-09] MEDS: CODEINE 30MG/APAP 300MG TAB PO PRN ×3 (08:27→20:53)
--- NOTE | 2018-12-09 10:32 | EKG ---
Test Date: 2018-12-08 Test Time: 23:24:34 Security Systems Engineer: RT MEASUREMENT RESULTS: Intervals: Rate: 89 ND: 184 QRSD: 80 QT: 400 QTc: 486 [place]: P: 59 ND: 184 QRS: 3 T: 43 INTERPRETIVE STATEMENTS: Normal sinus rhythm with sinus arrhythmia Inferior infarct, age undetermined Abnormal ECG Compared to ECG 12/08/2018 01:02:43 Myocardial infarct finding now present Sinus tachycardia no longer present Atrial premature complex(es) no longer present Electronically Signed On 12-09-18 10:31:32 CDT by Rashad Christopher
--- NOTE | 2018-12-09 10:36 | EKG ---
Test Date: 2018-12-08 Test Time: 01:02:43 Food And Drug Inspector: RR MEASUREMENT RESULTS: Intervals: Rate: 114 NM: 148 QRSD: 72 QT: 352 QTc: 485 [place]: P: 65 NM: 148 QRS: 8 T: 55 INTERPRETIVE STATEMENTS: Sinus tachycardia with premature atrial complexes Low voltage QRS Borderline ECG Compared to ECG 09/03/2018 19:54:44 Atrial premature complex(es) now present Low QRS voltage now present Sinus rhythm no longer present Electronically Signed On 12-09-18 10:32:05 CDT by Rashad Christopher
[2018-12-09 15:49] LABS: Urine Appearance CLOUDY; Urine Bilirubin NEGATIVE (NEG); Urine Blood NEGATIVE (NEG); Urine Color YELLOW; Urine Glucose NEGATIVE (NEG); Urine Protein 1+ (NEG); Urine Urobilinogen 0.2 mg/dL (0.2-1.0); Urine pH 5.5 (5.0-7.0)
[2018-12-09 15:59] LABS: Urine Microscopic Reflex NO UMIC
--- NOTE | 2018-12-09 16:21 | P.PN ---
Subjective Date of Service: 12/09/18 Primary Care Provider: half-way physician; Pulmonary-Dr. Zamora Chief Complaint: Respiratory failure Subjective: No C/O voiced, Improving, Doing well, Other (C/o of being weak and not ready for DC home today) Review of Systems 10-point ROS is otherwise unremarkable Physical Examination - Vital Signs Temperature: 97.4 F Blood Pressure: 155/75 Pulse: 89 Respirations: 20 Pulse Ox (%): 94 - Physical Exam General: Alert, In no apparent distress HEENT: Atraumatic, PERRLA, EOMI Neck: Supple, JVD not distended Respiratory: Normal air movement, Expiratory wheezes, Inspiratory wheezes Cardiovascular: Regular rate/rhythm, Normal S1 S2 Gastrointestinal: Normal bowel sounds, No tenderness Musculoskeletal: No tenderness Integumentary: No rashes Neurological: Normal speech, Normal tone, Normal affect Lymphatics: No axilla or inguinal lymphadenopathy - Studies Medications List Reviewed: Yes Assessment And Plan - Current Problems (Diagnosis) (1) COPD exacerbation Onset Date: 07/09/16 Current Visit: No Status: Acute Plan: Acute COPD exacerbation 2.2 to Possible pNA -Duonebs, Steriods and Oxygen for now -WBC trending down -Xray improving -Continue with abx (2) CHF (congestive heart failure) Current Visit: No Status: Chronic Qualifiers: Heart failure type: diastolic Heart failure chronicity: acute on chronic Qualified Code(s): I50.33 - Acute on chronic diastolic (congestive) heart failure (3) HTN (hypertension) Onset Date: 12/07/16 Current Visit: No Status: Chronic Qualifiers: Hypertension type: essential hypertension Qualified Code(s): I10 - Essential (primary) hypertension (4) Hyperthyroidism Current Visit: No Status: Chronic Discharge Plan: Longterm Plan to discharge in: 48 Hours - Code Status/Comfort Care Code Status Assessed: Yes Critical Care: No
[2018-12-09] MEDS: CEFEPIME/SWI 1gm 10 ML IV SCH (20:47)
[2018-12-09] MEDS: MIRTAZAPINE 15 MG TAB PO SCH (20:47)
[2018-12-10 05:52] LABS: Absolute Lymphocytes (CBC) 0.9 K/uL (0.7-4.9); Basophils % 0.1 % (0-1.3); Hematocrit 28.8 % (36.0-45.0); Lymphocytes % 6.4 % (15.3-44.8); MPV 8.8 fL (7.6-11.3); RBC Red Blood Cell Count 3.63 M/uL (3.86-4.86)
[2018-12-10 06:12] LABS: Magnesium 2.4 mg/dL (1.8-2.4); Potassium 5.4 mmol/L (3.5-5.1)
[2018-12-10] MEDS: ARFORMOTEROL TARTRATE 15 MCG/2 ML VIAL.NEB NEB SCH (07:30)
[2018-12-10] MEDS: VENLAFAXINE HCL XR 75 MG CAP PO SCH (08:39)
[2018-12-10] MEDS: predniSONE 20 MG TAB PO SCH (08:39)
[2018-12-10] MEDS: FAMOTIDINE 20 MG TAB PO SCH (08:39)
[2018-12-10] MEDS: APIXABAN 2.5 MG TABLET PO SCH (08:39)
[2018-12-10] MEDS: METOPROLOL TAR 50 MG TAB PO SCH (08:39)
[2018-12-10] MEDS: LORATADINE 10 MG TAB PO SCH (08:39)
[2018-12-10] MEDS: CODEINE 30MG/APAP 300MG TAB PO PRN (08:40)
[2018-12-10 09:01] VITALS: O2SAT 98
--- NOTE | 2018-12-10 11:39 | P.DS ---
Admission Date: 12/10/18 Discharge Date: 12/10/18 Primary Care Provider: [facility] physician; Pulmonary-Dr. Zamora Discharge Condition: FAIR Reason for Admission: Respiratory failure Consultations: Pulmonology - Problems (1) COPD exacerbation Onset Date: 07/09/16 Current Visit: No Status: Acute (2) CHF (congestive heart failure) Current Visit: No Status: Chronic Qualifiers: Heart failure type: diastolic Heart failure chronicity: acute on chronic Qualified Code(s): I50.33 - Acute on chronic diastolic (congestive) heart failure (3) HTN (hypertension) Onset Date: 12/07/16 Current Visit: No Status: Chronic Qualifiers: Hypertension type: essential hypertension Qualified Code(s): I10 - Essential (primary) hypertension (4) Hyperthyroidism Current Visit: No Status: Chronic Brief History of Present Illness: 83-year-old female presented to the emergency room with fever, cough and shortness of breath. Patient lives at the intermediate. Patient with underlying history of CAD, dementia, depression, COPD on chronic oxygen and steroids, atrial fibrillation on chronic anti coagulation therapy. Patient was brought in from the intermediate due to fever, cough. Her shortness of breath has worsened. She noted increased wheezing, tachypnea and hypoxia. In the ER patient was evaluated. Patient was tachypneic and hypoxic in the emergency room. Patient required BiPAP. BiPAP was initiated. On lab white count 21.6, hemoglobin 10.9, platelet count of 321. Neutrophils 88. Troponin unremarkable. Pro calcitonin pending. Sodium 137, potassium 3.9, BUN of 19, creatinine 1.2 with a GFR 42. Blood gases showed a pH 7.39 with a pC02 of 50 and a PO2 of 81. Chest x-ray showed possible pneumonia bilateral. Patient started on antibiotic therapy in the ER-cefepime. Patient admitted for further evaluation and treatment. When I saw the patient in the ER, she remained on BiPAP but improved. Respiratory distress improved. Patient able to converse appropriately. Patient reports recent history of rectal bleeding. This required evaluation in [place]. She had a colonoscopy showing colon polyps. Hospital Course: Overall during the hospital stay patient main stable Patient was initially admitted to the hospital for COPD exacerbation most likely secondary to viral illness. Patient had blood cultures the sputum culture and urine cultures done here in the hospital. All of which were negative for any acute abnormality. Initially patient's white count was elevated which trended down here in the hospital. Patient was started on duo nebs, steroids, oxygen while here in the hospital. Patient does use home oxygenation and was weaned to the home level here in the hospital. Patient had pulmonology consulted on the case. Pulmonology saw the patient here and who recommended the patient could be discharged home after 24 hr of observation. Patient will be followed up by pulmonology outpatient as well. Patient also needed to long-acting beta agonist which was prescribed for her. Patient was given a prescription for borvana and was asked to continue taking that along with her other neb treatments. Once patient was doing well overall she was transferred back to the intermediate under the care of the intermediate doctor there and follow up with pulmonology in about 1-2 days post discharge. Vital Signs/Physical Exam: Temp Pulse Resp BP Pulse Ox 97.4 F 88 20 183/86 H 95 12/10/18 08:00 12/10/18 08:39 12/10/18 08:00 12/10/18 08:39 12/10/18 08:00 General: Alert, In no apparent distress HEENT: Atraumatic, PERRLA, EOMI Neck: Supple, JVD not distended Respiratory: Clear to auscultation bilaterally, Normal air movement Cardiovascular: Regular rate/rhythm, Normal S1 S2 Gastrointestinal: Normal bowel sounds, No tenderness Musculoskeletal: No tenderness Integumentary: No rashes Neurological: Normal speech, Normal tone, Normal affect Lymphatics: No axilla or inguinal lymphadenopathy Laboratory Data at Discharge: WBC 14.3 K/uL (4.3-10.9) H D 12/10/18 05:40 Hgb 9.1 g/dL (12.0-15.0) L 12/10/18 05:40 Hct 28.8 % (36.0-45.0) L 12/10/18 05:40 Plt Count 279 K/uL (152-406) 12/10/18 05:40 PT 14.7 SECONDS (9.5-12.5) H 12/08/18 01:45 INR 1.26 12/08/18 01:45 Sodium 140 mmol/L (136-145) 12/10/18 05:40 Potassium 5.4 mmol/L (3.5-5.1) H 12/10/18 05:40 BUN 42 mg/dL (7-18) H 12/10/18 05:40 Creatinine 1.28 mg/dL (0.55-1.3) 12/10/18 05:40 Glucose 143 mg/dL (74-106) H 12/10/18 05:40 Magnesium 2.4 mg/dL (1.8-2.4) 12/10/18 05:40 Total Bilirubin 0.5 mg/dL (0.2-1.0) 12/08/18 01:45 AST 14 U/L (15-37) L 12/08/18 01:45 ALT 15 U/L (12-78) 12/08/18 01:45 Alkaline Phosphatase 95 U/L (45-117) 12/08/18 01:45 Home Medications: Mirtazapine [Remeron*] 15 mg PO BEDTIME 03/17/18 Acetaminophen [Tylenol*] 1 supp [place] Q6H PRN 12/08/18 Acetaminophen [Tylenol] 2 tab PO Q6H PRN 12/08/18 Acetaminophen with Codeine [Tylenol with Codeine #3 Tablet] 1 tab PO Q4H PRN Albuterol Neb [Proventil 0.083% Neb Soln] 3 ml IH BID 12/08/18 Albuterol Sulfate [Proair Hfa] 2 puff IH Q6H PRN 12/08/18 Apixaban [Eliquis *] 1 tab PO BID 12/08/18 Diazepam [Valium] 1 tab PO Q12H PRN 12/08/18 Enema, Fleet Adult [Fleet Enema Adult*] 1 godfrey [place] DAILY PRN 12/08/18 Guaifenesin [Kristin-Tussin] 5 ml PO Q6H PRN 12/08/18 Ipratropium [place] 1 godfrey IH Q6H PRN 12/08/18 Loperamide HCl [Loperamide] 1 cap PO Q4H PRN 12/08/18 Loratadine 10 mg PO DAILY 12/08/18 Mag Hydrox/Aluminum Hyd/Simeth [Kristin-Lanta Liquid] 30 ml PO Q4H PRN 12/08/18 Mag Hydroxide 8% [Milk Of Magnesia*] 30 ml PO DAILY PRN 12/08/18 Metoprolol Tartrate [Lopressor*] 1 tab PO BID 12/08/18 Phenol [Chloraseptic] 2 spray PO Q4H PRN 12/08/18 Sodium Chloride [Saline Nose [place]] 2 spray IH SEECOM PRN 12/08/18 Venlafaxine HCl [Venlafaxine HCl ER] 75 mg PO DAILY 12/08/18 methIMAzole [Tapazole*] 15 mg PO DAILY 12/08/18 predniSONE [Prednisone*] 1 tab PO DAILY 12/08/18 Arformoterol Tartrate [Brovana] 15 mcg IH BID #1 vial.neb 12/09/18 New Medications: Arformoterol Tartrate [Brovana] 15 mcg IH BID #1 vial.[facility] Diet: Regular Activity: Ad alfreda Followup: Arjun Zamora MD [ACTIVE - CAN ADMIT] - 1 Week
[2018-12-10] MEDS: IPRATROPIUM BROM 0.5MG/2.5ML NEB PRN (16:13)
[2018-12-10] MEDS: LEVALBUTEROL 0.63 MG/3 ML NEB NEB PRN (16:13)
[2018-12-10 17:18] VITALS: BP 147/73; TEMP 98
== END 2018-12-10 16:30 | DRG 193 ==
LOC: ER 01:00 → ERHOLD 04:30 → INTOOBSV 04:30 → 2ND 04:58 → OBSVTOIN 12-10 10:25
PROVIDERS: ADMIT Family Medicine; ATTEND Family Medicine
PROC: 5A09357 Assistance with Respiratory Ventilation, Less than 24 Consecutive Hours, Continuous Positive Airway Pressure (ICD-10-PCS; principal; 2018-12-08)
DX: J18.9 Pneumonia, unspecified organism (principal); J96.21 Acute and chronic respiratory failure with hypoxia; J44.0 Chronic obstructive pulmonary disease with (acute) lower respiratory infection; J44.1 Chronic obstructive pulmonary disease with (acute) exacerbation; I25.10 Atherosclerotic heart disease of native coronary artery without angina pectoris; F03.90 Unspecified dementia, unspecified severity, without behavioral disturbance, psychotic disturbance, mood disturbance, and anxiety; F32.9 Major depressive disorder, single episode, unspecified; I48.91 Unspecified atrial fibrillation; Z79.01 Long term (current) use of anticoagulants; I10 Essential (primary) hypertension; E05.90 Thyrotoxicosis, unspecified without thyrotoxic crisis or storm; F17.210 Nicotine dependence, cigarettes, uncomplicated; K21.9 Gastro-esophageal reflux disease without esophagitis
CPT/HCPCS: 36415; 71045; 71046; 71250; 80048; 80076; 81003; 82805; 83605; 83735; 83880; 84145; 84484; 85025; 85610; 87040; 87070; 87081; 87804; 93005; 94640; 94660; 96365; 96375; 99285; G0378; J0692; J1940; J2405; J7512; J7605

== ENCOUNTER 2019-06-11 11:49 | Emergency (ER) | payer OTHER ==
--- OUTSIDE RECORDS SUMMARY | 2019-06-11 11:52 | XMS REPORT ---
:1935 Author Organization [facility] Address [address] [place] [address] Care Team Providers Name Role Phone EMILIE [...] EXAM 2018 12:26:00 Surgical Pathology Report Case: [id number] Authorizing Provider: Zarina Murrell MD Collected: 10/29/2018 1228 Ordering Location: [address] Received: 10/31/2018 0811 Service Pathologist: Amanda [...] MALIGNANCY PRESENT Signing Pathologist Direct Phone Line: [phone] signed by Amanda Guajardo MD on 2018 at 12:26 [id number] X [id number] and postop diagnosis: hematocheziaA. Polyp, [...] Comments SODIUM (BEAKER) (test 136 meq/L 136-145 yghv=795) POTASSIUM (BEAKER) (test 4.1 meq/L 3.5-5.1 oxte=624) CHLORIDE (BEAKER) (test 102 meq/L 98-107 kfdg=347) CO2 (BEAKER) (test wprf=963) 26 meq/L 22-29 BLOOD UREA NITROGEN (BEAKER) 21 mg/dL 7-21 (test zoil=808) CREATININE (BEAKER) (test 1.15 mg/dL 0.57-1.25 wtrg=534) GLUCOSE RANDOM (BEAKER) 91 mg/dL 70-105 (test nybc=038) CALCIUM (BEAKER) (test 8.7 mg/dL 8.4-10.2 ahzd=485) EGFR (BEAKER) (test 45 mL/min/1.73 sq m ESTIMATED GFR IS NOT inus=2834) ACCURATE CREATININE CLEARANCE IN PREDICTING GLOMERULAR FILTRATION RATE. ESTIMATED GFR IS NOT APPLICABLE FOR DIALYSIS PATIENTS. HEMOGLOBIN AND [id number] 04:49:00 Test Item Value Reference Range Comments HEMOGLOBIN (BEAKER) (test hoty=280) 10.0 GM/DL 11.2-15.7 HEMATOCRIT (BEAKER) (test fesd=720) 33.3 % 34.1-44.9 BASIC METABOLIC [id number] 07:15:00 Test Item Value Reference Range Comments SODIUM (BEAKER) (test 138 meq/L 136-145 qmne=622) POTASSIUM (BEAKER) (test 3.8 meq/L 3.5-5.1 spmh=270) CHLORIDE (BEAKER) (test 103 meq/L 98-107 xwii=661) CO2 (BEAKER) (test 27 meq/L 22-29 azdx=914) BLOOD UREA NITROGEN 26 mg/dL 7-21 (BEAKER) (test hiqv=975) CREATININE (BEAKER) (test 1.21 mg/dL 0.57-1.25 tqjc=984) GLUCOSE RANDOM (BEAKER) 106 mg/dL 70-105 (test xkxu=378) CALCIUM (BEAKER) (test 8.8 mg/dL 8.4-10.2 dcbe=825) EGFR (BEAKER) (test 42 mL/min/1.73 sq m ESTIMATED GFR IS NOT ibbz=9421) ACCURATE CREATININE CLEARANCE IN PREDICTING GLOMERULAR FILTRATION RATE. ESTIMATED GFR IS NOT APPLICABLE FOR DIALYSIS PATIENTS. HEMOGLOBIN AND [id number] 06:27:00 Test Item Value Reference Range Comments HEMOGLOBIN (BEAKER) (test sbaf=050) 9.6 GM/DL 11.2-15.7 HEMATOCRIT (BEAKER) (test usrh=326) 31.4 % 34.1-44.9 TROPONIN [id number] 14:57:00 Test Item Value Reference Range Comments TROPONIN I (BEAKER) (test xsgz=018) 0.02 ng/mL 0.00-0.03 Troponin I (TnI) levels [...] acute neurological disease, and persistent tachyarrhythmia.HEMOGLOBIN AND [id number] 14: 30:00 Test Item Value Reference Range Comments HEMOGLOBIN (BEAKER) (test hilr=643) 10.4 GM/DL 11.2-15.7 HEMATOCRIT (BEAKER) (test tljb=683) 33.6 % 34.1-44.9 POCT-GLUCOSE [id number] 13:29:00 Test Item Value Reference Range Comments POC-GLUCOSE METER (BEAKER) 123 mg/dL 70-110 TESTED AT [facility] [address] [facility] (test ueql=6752) [facility] [place] [address] TROPONIN [id number] 07:54:00 Test Item Value Reference Range Comments TROPONIN I (BEAKER) (test qjns=335) < ng/mL 0.00-0.03 Troponin I (TnI) levels [...] and persistent tachyarrhythmia.RAD, CHEST, 1 VIEW, NON [id number] 06:59:00Reason for exam:->chest painShould this be performed [...] No acute bony abnormality. Signed: Ankush Munoz [facility] Verified Date/Time: 10/29/2018 06:59:47 Reading Location: [facility] C013Y CT Body Reading Room HEMOGLOBIN AND [id number] 06:05:00 Test Item Value Reference Range Comments HEMOGLOBIN (BEAKER) (test nkrk=029) 10.9 GM/DL 11.2-15.7 HEMATOCRIT (BEAKER) (test dwzs=257) 36.0 % 34.1-44.9 BASIC METABOLIC [id number] 03:58:00 Test Item Value Reference Range Comments SODIUM (BEAKER) (test 138 meq/L 136-145 wgto=711) POTASSIUM (BEAKER) (test 4.7 meq/L 3.5-5.1 baxq=676) CHLORIDE (BEAKER) (test 98 meq/L 98-107 czvy=950) CO2 (BEAKER) (test 27 meq/L 22-29 zqtd=073) BLOOD UREA NITROGEN 27 mg/dL 7-21 (BEAKER) (test iaap=012) CREATININE (BEAKER) (test 1.43 mg/dL 0.57-1.25 tqaz=817) GLUCOSE RANDOM (BEAKER) 110 mg/dL 70-105 (test uixb=292) CALCIUM (BEAKER) (test 9.7 mg/dL 8.4-10.2 uqdm=328) EGFR (BEAKER) (test 35 mL/min/1.73 sq m ESTIMATED GFR IS NOT enlz=9715) ACCURATE CREATININE CLEARANCE IN PREDICTING GLOMERULAR FILTRATION RATE. ESTIMATED GFR IS NOT APPLICABLE FOR DIALYSIS PATIENTS. TROPONIN [id number] 02:12:00 Test Item Value Reference Range Comments TROPONIN I (BEAKER) (test ouop=710) 0.01 ng/mL 0.00-0.03 Troponin I (TnI) levels [...] failure, acidosis, acute neurological disease, and persistent tachyarrhythmia.[id number] 02:06:00 Test Item Value Reference Range Comments MAGNESIUM (BEAKER) (test vxir=944) 2.1 mg/dL 1.6-2.6 CBC W/PLT COUNT & AUTO [id number] 20:23:00 Test Item Value Reference Range Comments WHITE BLOOD CELL COUNT (BEAKER) (test torf=149) 13.9 K/ L 3.5-10.5 RED BLOOD CELL COUNT (BEAKER) (test eypm=752) 4.06 M/ L 3.93-5.22 HEMOGLOBIN (BEAKER) (test mbue=057) 10.5 GM/DL 11.2-15.7 HEMATOCRIT (BEAKER) (test dese=378) 34.3 % 34.1-44.9 MEAN CORPUSCULAR VOLUME (BEAKER) (test psoz=155) 84.5 fL 79.4-94.8 MEAN CORPUSCULAR HEMOGLOBIN (BEAKER) (test 25.9 pg 25.6-32.2 cjcy=132) MEAN CORPUSCULAR HEMOGLOBIN CONC (BEAKER) (test 30.6 GM/DL 32.2-35.5 kyrd=717) RED CELL DISTRIBUTION WIDTH (BEAKER) (test 13.3 % 11.7-14.4 rwtj=464) PLATELET COUNT (BEAKER) (test ainv=252) 326 K/CU MM 150-450 MEAN PLATELET VOLUME (BEAKER) (test xlhn=502) 9.7 fL 9.4-12.3 NUCLEATED RED BLOOD CELLS (BEAKER) (test 0 /100 WBC 0-0 tknj=712) NEUTROPHILS RELATIVE PERCENT (BEAKER) (test 76 % rrri=433) LYMPHOCYTES RELATIVE PERCENT (BEAKER) (test 16 % cagq=302) MONOCYTES RELATIVE PERCENT (BEAKER) (test 5 % ciac=331) EOSINOPHILS RELATIVE PERCENT (BEAKER) (test 1 % ocfd=875) BASOPHILS RELATIVE PERCENT (BEAKER) (test 1 % jzem=757) NEUTROPHILS ABSOLUTE COUNT (BEAKER) (test 10.66 K/ L 1.56-6.13 tzzj=916) LYMPHOCYTES ABSOLUTE COUNT (BEAKER) (test 2.28 K/ L 1.18-3.74 iyff=884) MONOCYTES ABSOLUTE COUNT (BEAKER) (test 0.74 K/ L 0.24-0.36 snzy=121) EOSINOPHILS ABSOLUTE COUNT (BEAKER) (test 0.13 K/ L 0.04-0.36 hzej=905) BASOPHILS ABSOLUTE COUNT (BEAKER) (test 0.08 K/ L 0.01-0.08 kkef=868) IMMATURE GRANULOCYTES-RELATIVE PERCENT (BEAKER) 0 % 0-1 (test svfg=7636) BASIC METABOLIC [id number] 05:58:00 Test Item Value Reference Range Comments SODIUM (BEAKER) (test 139 meq/L 136-145 dblw=410) POTASSIUM (BEAKER) (test 4.3 meq/L 3.5-5.1 iadr=127) CHLORIDE (BEAKER) (test 97 meq/L 98-107 pxai=653) CO2 (BEAKER) (test 34 meq/L 22-29 jdda=796) BLOOD UREA NITROGEN 16 mg/dL 7-21 (BEAKER) (test kazj=381) CREATININE (BEAKER) (test 0.81 mg/dL 0.57-1.25 umty=284) GLUCOSE RANDOM (BEAKER) 126 mg/dL 70-105 (test ndbz=583) CALCIUM (BEAKER) (test 9.8 mg/dL 8.4-10.2 kmlu=768) EGFR (BEAKER) (test 67 mL/min/1.73 sq m ESTIMATED GFR IS NOT sfro=1807) ACCURATE CREATININE CLEARANCE IN PREDICTING GLOMERULAR FILTRATION RATE. ESTIMATED GFR IS NOT APPLICABLE FOR DIALYSIS PATIENTS. CBC (HEMOGRAM ONLY)2018-09-05 05:33:00 Test Item Value Reference Range Comments WHITE BLOOD CELL COUNT (BEAKER) (test mtir=198) 14.3 K/ L 3.5-10.5 RED BLOOD CELL COUNT (BEAKER) (test akqy=919) 3.26 M/ L 3.93-5.22 HEMOGLOBIN (BEAKER) (test vleg=839) 9.0 GM/DL 11.2-15.7 HEMATOCRIT (BEAKER) (test jvdh=067) 29.6 % 34.1-44.9 MEAN CORPUSCULAR VOLUME (BEAKER) (test xyrf=101) 90.8 fL 79.4-94.8 MEAN CORPUSCULAR HEMOGLOBIN (BEAKER) (test 27.6 pg 25.6-32.2 zacb=896) MEAN CORPUSCULAR HEMOGLOBIN CONC (BEAKER) (test 30.4 GM/DL 32.2-35.5 afeu=441) RED CELL DISTRIBUTION WIDTH (BEAKER) (test 12.7 % 11.7-14.4 svya=536) PLATELET COUNT (BEAKER) (test fgzs=296) 302 K/CU MM 150-450 MEAN PLATELET VOLUME (BEAKER) (test nqap=368) 10.7 fL 9.4-12.3 NUCLEATED RED BLOOD CELLS (BEAKER) (test 0 /100 WBC 0-0 emxb=251) THROMBOELASTOGRAPH (TEG)2018-09-04 20:35:00 Test Item Value Reference Range Comments TEG ACTIVATED CLOTTING TIME (BEAKER) (test 4.5 minutes 4.0-7.0 qqtb=2833) TEG FIBRINOGEN ACTIVITY (BEAKER) (test 78.3 degrees 61.0-73.0 pkvz=0245) TEG PLT. AGGREGATION (BEAKER) (test btxu=5537) 71.4 MM 55.0-65.0 TEG FIBRINOLYSIS (BEAKER) (test umic=2769) 1.0 % 0.0-5.0 TGH ACTIVATED CLOTTING TIME (BEAKER) (test 4.5 minutes 4.0-7.0 zqkl=5344) TGH FIBRINOGEN ACTIVITY (BEAKER) (test 75.3 degrees 61.0-73.0 uovq=7103) TGH PLT. AGGREGATION (BEAKER) (test huos=7775) 62.9 MM 55.0-65.0 TGH FIBRINOLYSIS (BEAKER) (test hegh=6424) 2.2 % 0.0-5.0 HEMOGLOBIN AND [id number] 18:46:00 Test Item Value Reference Range Comments HEMOGLOBIN (BEAKER) (test qtla=129) 8.6 GM/DL 11.2-15.7 HEMATOCRIT (BEAKER) (test gqgy=586) 27.7 % 34.1-44.9 HEMOGLOBIN AND [id number] 17:10:00 Test Item Value Reference Range Comments HEMOGLOBIN (BEAKER) (test kkum=911) 7.6 GM/DL 11.2-15.7 HEMATOCRIT (BEAKER) (test vcum=605) 24.4 % 34.1-44.9 T4, [id number] 14:16:00 Test Item Value Reference Range Comments FREE T4 (BEAKER) (test mvxm=325) 1.14 ng/dL 0.70-1.48 TSH/FREE T4 IF [id number] 13:15:00 Test Item Value Reference Range Comments THYROID STIMULATING HORMONE (BEAKER) (test 0.01 uIU/mL 0.35-4.94 mjeq=156) CBC (HEMOGRAM ONLY)2018-09-04 11:11:00 Test Item Value Reference Range Comments WHITE BLOOD CELL COUNT (BEAKER) (test vxhe=446) 7.7 K/ L 3.5-10.5 RED BLOOD CELL COUNT (BEAKER) (test mgcq=722) 3.31 M/ L 3.93-5.22 HEMOGLOBIN (BEAKER) (test omtt=037) 9.0 GM/DL 11.2-15.7 HEMATOCRIT (BEAKER) (test mvvo=422) 29.7 % 34.1-44.9 MEAN CORPUSCULAR VOLUME (BEAKER) (test vsdu=915) 89.7 fL 79.4-94.8 MEAN CORPUSCULAR HEMOGLOBIN (BEAKER) (test 27.2 pg 25.6-32.2 pibc=064) MEAN CORPUSCULAR HEMOGLOBIN CONC (BEAKER) (test 30.3 GM/DL 32.2-35.5 dnfr=156) RED CELL DISTRIBUTION WIDTH (BEAKER) (test 12.5 % 11.7-14.4 hyad=338) PLATELET COUNT (BEAKER) (test pquv=906) 292 K/CU MM 150-450 MEAN PLATELET VOLUME (BEAKER) (test giil=935) 10.5 fL 9.4-12.3 NUCLEATED RED BLOOD CELLS (BEAKER) (test 0 /100 WBC 0-0 zaee=615) [id number] 04:37:00 Test Item Value Reference Range Comments MAGNESIUM (BEAKER) (test ysil=855) 1.8 mg/dL 1.6-2.6 BASIC METABOLIC [id number] 04:37:00 Test Item Value Reference Range Comments SODIUM (BEAKER) (test 137 meq/L 136-145 mbkd=867) POTASSIUM (BEAKER) (test 4.4 meq/L 3.5-5.1 uaud=196) CHLORIDE (BEAKER) (test 94 meq/L 98-107 fngb=491) CO2 (BEAKER) (test 35 meq/L 22-29 miau=914) BLOOD UREA NITROGEN 14 mg/dL 7-21 (BEAKER) (test zjdn=453) CREATININE (BEAKER) (test 0.88 mg/dL 0.57-1.25 paaa=426) GLUCOSE RANDOM (BEAKER) 183 mg/dL 70-105 (test brck=929) CALCIUM (BEAKER) (test 9.2 mg/dL 8.4-10.2 lpxq=370) EGFR (BEAKER) (test 61 mL/min/1.73 sq m ESTIMATED GFR IS NOT vzte=7548) ACCURATE CREATININE CLEARANCE IN PREDICTING GLOMERULAR FILTRATION RATE. ESTIMATED GFR IS NOT APPLICABLE FOR DIALYSIS PATIENTS. HEPATIC FUNCTION [id number] 04:37:00 Test Item Value Reference Range Comments TOTAL PROTEIN (BEAKER) (test avvl=411) 7.7 gm/dL 6.0-8.3 ALBUMIN (BEAKER) (test fdfa=6749) 3.5 g/dL 3.5-5.0 BILIRUBIN TOTAL (BEAKER) (test gtzp=289) 0.3 mg/dL 0.2-1.2 BILIRUBIN DIRECT (BEAKER) (test adco=983) 0.2 mg/dL 0.1-0.5 ALKALINE PHOSPHATASE (BEAKER) (test cjtr=672) 72 U/L 40-150 AST (SGOT) (BEAKER) (test zpnm=354) 16 U/L 5-34 ALT (SGPT) (BEAKER) (test papf=635) 10 U/L 6-55 [id number] 04:33:00 Test Item Value Reference Range Comments PROTIME (BEAKER) (test uimd=369) 15.4 seconds 11.9-14.2 INR (BEAKER) (test bfou=712) 1.3 <=5.9 PARTIAL THROMBOPLASTIN TIME (BEAKER) (test 38.0 seconds 22.5-36.0 bqzl=824) Effective 08/17/2018: PT Reference Range ChangeNew: 11.9-14.2 Previous: 11.7- 14.7RECOMMENDED COUMADIN/WARFARIN INR THERAPY RANGESSTANDARD DOSE: 2.0-3.0 Includes: PROPHYLAXIS for venous thrombosis, systemic embolization; TREATMENT for venous thrombosis and/or pulmonary embolus.HIGH RISK: Target INR is2.5-3.5 for patients wiht mechanical heart valves.CBC (HEMOGRAM ONLY)2018-09-04 04:11:00 Test Item Value Reference Range Comments WHITE BLOOD CELL COUNT (BEAKER) (test avxk=149) 10.9 K/ L 3.5-10.5 RED BLOOD CELL COUNT (BEAKER) (test omyq=986) 3.79 M/ L 3.93-5.22 HEMOGLOBIN (BEAKER) (test ogwy=149) 10.5 GM/DL 11.2-15.7 HEMATOCRIT (BEAKER) (test ixwr=662) 34.3 % 34.1-44.9 MEAN CORPUSCULAR VOLUME (BEAKER) (test opsd=570) 90.5 fL 79.4-94.8 MEAN CORPUSCULAR HEMOGLOBIN (BEAKER) (test 27.7 pg 25.6-32.2 tdvu=207) MEAN CORPUSCULAR HEMOGLOBIN CONC (BEAKER) (test 30.6 GM/DL 32.2-35.5 wacc=419) RED CELL DISTRIBUTION WIDTH (BEAKER) (test 12.5 % 11.7-14.4 sqnr=095) PLATELET COUNT (BEAKER) (test nmum=661) 322 K/CU MM 150-450 MEAN PLATELET VOLUME (BEAKER) (test rbzm=588) 10.3 fL 9.4-12.3 NUCLEATED RED BLOOD CELLS (BEAKER) (test 0 /100 WBC 0-0 ifps=772) BLOOD [id number] 00:00:00 Test Item Value Reference Range Comments CULTURE (BEAKER) (test oedo=0118) No growth in 5 days BLOOD [id number] 00:00:00 Test Item Value Reference Range Comments CULTURE (BEAKER) (test hhlf=6831) No growth in 5 days CLOSTRIDIUM DIFFICILE TOXIN [id number] 17:09:00 Test Item Value Reference Range Comments CLOSTRIDIUM DIFFICILE TOXIN, PCR (BEAKER) (test Not Detected Not Detected zkvp=7895) This qualitative real-time polymerase chain reaction assay [...] a positive result is not recommended.BASIC METABOLIC [id number] 10:06:00 Test Item Value Reference Range Comments SODIUM (BEAKER) (test 138 meq/L 136-145 uhxm=501) POTASSIUM (BEAKER) (test 4.2 meq/L 3.5-5.1 Specimen slightly lhyb=759) hemolyzed CHLORIDE (BEAKER) (test 104 meq/L 98-107 jula=797) CO2 (BEAKER) (test 24 meq/L 22-29 sesm=365) BLOOD UREA NITROGEN 26 mg/dL 7-21 (BEAKER) (test nawj=438) CREATININE (BEAKER) (test 0.94 mg/dL 0.57-1.25 Specimen slightly mfud=935) hemolyzed GLUCOSE RANDOM (BEAKER) 100 mg/dL 70-105 (test axli=753) CALCIUM (BEAKER) (test 8.8 mg/dL 8.4-10.2 umam=136) EGFR (BEAKER) (test 57 mL/min/1.73 sq m ESTIMATED GFR IS NOT ktdl=4136) ACCURATE CREATININE CLEARANCE IN PREDICTING GLOMERULAR FILTRATION RATE. ESTIMATED GFR IS NOT APPLICABLE FOR DIALYSIS PATIENTS. CBC W/PLT COUNT & AUTO [id number] 09:48:00 Test Item Value Reference Range Comments WHITE BLOOD CELL COUNT 12.9 K/ L 3.5-10.5 (BEAKER) (test aojy=463) RED BLOOD CELL COUNT (BEAKER) 4.59 M/ L 3.93-5.22 (test xjsw=604) HEMOGLOBIN (BEAKER) (test 13.4 GM/DL 11.2-15.7 mllv=198) HEMATOCRIT (BEAKER) (test 43.1 % 34.1-44.9 hdgt=220) MEAN CORPUSCULAR VOLUME 93.9 fL 79.4-94.8 (BEAKER) (test tjwz=060) MEAN CORPUSCULAR HEMOGLOBIN 29.2 pg 25.6-32.2 (BEAKER) (test xanv=089) MEAN CORPUSCULAR HEMOGLOBIN 31.1 GM/DL 32.2-35.5 CONC (BEAKER) (test tmyq=281) RED CELL DISTRIBUTION WIDTH 12.8 % 11.7-14.4 (BEAKER) (test jhux=297) PLATELET COUNT (BEAKER) (test 286 K/CU MM 150-450 .Discordant from previous sflb=309) results. Clinical correlation suggested. MEAN PLATELET VOLUME (BEAKER) 10.3 fL 9.4-12.3 (test sfpp=330) NUCLEATED RED BLOOD CELLS 0 /100 WBC 0-0 (BEAKER) (test hiar=916) NEUTROPHILS RELATIVE PERCENT 70 % (BEAKER) (test fftw=021) LYMPHOCYTES RELATIVE PERCENT 17 % (BEAKER) (test jxda=115) MONOCYTES RELATIVE PERCENT 8 % (BEAKER) (test ijrm=065) EOSINOPHILS RELATIVE PERCENT 3 % (BEAKER) (test lsgy=283) BASOPHILS RELATIVE PERCENT 1 % (BEAKER) (test jlpz=967) NEUTROPHILS ABSOLUTE COUNT 9.04 K/ L 1.56-6.13 (BEAKER) (test iffn=374) LYMPHOCYTES ABSOLUTE COUNT 2.22 K/ L 1.18-3.74 (BEAKER) (test rvdf=741) MONOCYTES ABSOLUTE COUNT 0.99 K/ L 0.24-0.36 (BEAKER) (test hdsl=752) EOSINOPHILS ABSOLUTE COUNT 0.32 K/ L 0.04-0.36 (BEAKER) (test gqgg=089) BASOPHILS ABSOLUTE COUNT 0.15 K/ L 0.01-0.08 (BEAKER) (test nrtd=401) IMMATURE 1 % 0-1 GRANULOCYTES-RELATIVE PERCENT (BEAKER) (test azpl=4333) RAD, FOOT, 2 VIEWS, [id number] 16:52:00Reason for exam:->pain with ambulationFINAL REPORT Radiograph [...] Verified Date/Time: 01/12/2017 16:52:45 Reading Location: [address] Consult Reading Room T4, [id number] 16:26:00 Test Item Value Reference Range Comments FREE T4 (BEAKER) (test nbne=635) 1.12 ng/dL 0.70-1.48 TSH/FREE T4 IF [id number] 15:46:00 Test Item Value Reference Range Comments THYROID STIMULATING HORMONE (BEAKER) (test 0.03 uIU/mL 0.35-4.94 ozbx=983) BASIC METABOLIC [id number] 15:35:00 Test Item Value Reference Range Comments SODIUM (BEAKER) (test 136 meq/L 136-145 jinv=375) POTASSIUM (BEAKER) (test 4.1 meq/L 3.5-5.1 jouk=004) CHLORIDE (BEAKER) (test 99 meq/L 98-107 jbtb=579) CO2 (BEAKER) (test 24 meq/L 22-29 baud=987) BLOOD UREA NITROGEN 32 mg/dL 7-21 (BEAKER) (test bfqx=171) CREATININE (BEAKER) (test 1.12 mg/dL 0.57-1.25 mroz=158) GLUCOSE RANDOM (BEAKER) 164 mg/dL 70-105 (test zzni=960) CALCIUM (BEAKER) (test 10.2 mg/dL 8.4-10.2 hgfy=596) EGFR (BEAKER) (test 46 mL/min/1.73 sq m ESTIMATED GFR IS NOT xvym=3519) ACCURATE CREATININE CLEARANCE IN PREDICTING GLOMERULAR FILTRATION RATE. ESTIMATED GFR IS NOT APPLICABLE FOR DIALYSIS PATIENTS. CBC W/PLT COUNT & AUTO [id number] 15:06:00 Test Item Value Reference Range Comments WHITE BLOOD CELL COUNT (BEAKER) (test ttxe=632) 17.4 K/ L 3.5-10.5 RED BLOOD CELL COUNT (BEAKER) (test khye=904) 4.93 M/ L 3.93-5.22 HEMOGLOBIN (BEAKER) (test foea=944) 14.0 GM/DL 11.2-15.7 HEMATOCRIT (BEAKER) (test nmei=989) 44.8 % 34.1-44.9 MEAN CORPUSCULAR VOLUME (BEAKER) (test tnrg=228) 90.9 fL 79.4-94.8 MEAN CORPUSCULAR HEMOGLOBIN (BEAKER) (test 28.4 pg 25.6-32.2 kfce=956) MEAN CORPUSCULAR HEMOGLOBIN CONC (BEAKER) (test 31.3 GM/DL 32.2-35.5 pvyc=746) RED CELL DISTRIBUTION WIDTH (BEAKER) (test 12.9 % 11.7-14.4 fskf=872) PLATELET COUNT (BEAKER) (test fock=571) 360 K/CU MM 150-450 MEAN PLATELET VOLUME (BEAKER) (test ubbt=567) 10.5 fL 9.4-12.3 NUCLEATED RED BLOOD CELLS (BEAKER) (test 0 /100 WBC 0-0 gmhe=355) NEUTROPHILS RELATIVE PERCENT (BEAKER) (test 82 % bcsp=817) LYMPHOCYTES RELATIVE PERCENT (BEAKER) (test 11 % zbai=208) MONOCYTES RELATIVE PERCENT (BEAKER) (test 4 % ttuh=769) EOSINOPHILS RELATIVE PERCENT (BEAKER) (test 0 % kkou=790) BASOPHILS RELATIVE PERCENT (BEAKER) (test 1 % saub=612) NEUTROPHILS ABSOLUTE COUNT (BEAKER) (test 14.33 K/ L 1.56-6.13 rbpf=363) LYMPHOCYTES ABSOLUTE COUNT (BEAKER) (test 1.97 K/ L 1.18-3.74 njxo=464) MONOCYTES ABSOLUTE COUNT (BEAKER) (test 0.71 K/ L 0.24-0.36 ejgc=612) EOSINOPHILS ABSOLUTE COUNT (BEAKER) (test 0.05 K/ L 0.04-0.36 bsjw=301) BASOPHILS ABSOLUTE COUNT (BEAKER) (test 0.16 K/ L 0.01-0.08 gvje=921) IMMATURE GRANULOCYTES-RELATIVE PERCENT (BEAKER) 1 % 0-1 (test uyan=2943) URINE [id number] 08:21:00 Test Item Value Reference Range Comments CULTURE (BEAKER) (test adwf=0483) Amikacin (test code=1) Ampicillin + Sulbactam (test code=6) Aztreonam (test code=32) Cefepime (test code=51) Cefoxitin (test code=68) Ceftazidime (test code=27) Ceftriaxone (test code=52) Ertapenem (test code=38) Gentamicin (test code=18) Levofloxacin (test code=22) Meropenem (test code=34) Nitrofurantoin (test code=23) Piperacillin + Tazobactam (test code=29) Tetracycline (test code=2) Tobramycin (test code=25) Trimethoprim + Sulfamethoxazole (test code=47) CULTURE (BEAKER) (test jvoz=3004) >100,000 col/mL Proteus mirabilis <10,000 col/mL skin ranjith<10,000 col/mL gram negative rods of a second typeMR, BRAIN, WITHOUT [id number] 16:03:00Reason for exam:->Ischemic Stroke EvaluationFINAL REPORT MRI [...] [place] [facility] Verified Date/Time: 16:03:04 Reading Location: [address] Neuro Reading Room URINALYSIS W/ [id number] 15:35:00 Test Item Value Reference Range Comments COLOR (BEAKER) (test jlao=275) Light Yellow CLARITY (BEAKER) (test hydp=168) Hazy SPECIFIC GRAVITY UA (BEAKER) (test wnsh=862) 1.010 1.001-1.035 PH UA (BEAKER) (test qozm=366) 8.0 5.0-8.0 PROTEIN UA (BEAKER) (test wyzi=255) 20 mg/dL Negative GLUCOSE UA (BEAKER) (test vdtc=660) Negative Negative KETONES UA (BEAKER) (test siph=836) Negative Negative BILIRUBIN UA (BEAKER) (test lckr=950) Negative Negative BLOOD UA (BEAKER) (test cjtc=839) Negative Negative NITRITE UA (BEAKER) (test kwkl=670) Negative Negative LEUKOCYTE ESTERASE UA (BEAKER) (test yjxx=311) Large Negative UROBILINOGEN UA (BEAKER) (test teny=000) 0.2 mg/dL 0.2-1.0 RBC UA (BEAKER) (test gkhr=812) 2 /HPF WBC UA (BEAKER) (test qwsg=639) 87 /HPF SQUAMOUS EPITHELIAL (BEAKER) (test fggh=099) 3 /HPF SOURCE(BEAKER) (test ilkt=7006) Urine, Voided URINALYSIS W/ REFLEX URINE [id number] 15:35:00 Test Item Value Reference Range Comments COLOR (BEAKER) (test qnha=352) Light Yellow CLARITY (BEAKER) (test kexx=530) Hazy SPECIFIC GRAVITY UA (BEAKER) (test xtps=000) 1.010 1.001-1.035 PH UA (BEAKER) (test jqsy=279) 8.0 5.0-8.0 PROTEIN UA (BEAKER) (test oogk=821) 20 mg/dL Negative GLUCOSE UA (BEAKER) (test axer=364) Negative Negative KETONES UA (BEAKER) (test dngu=559) Negative Negative BILIRUBIN UA (BEAKER) (test nksc=421) Negative Negative BLOOD UA (BEAKER) (test jvch=409) Negative Negative NITRITE UA (BEAKER) (test mtzj=906) Negative Negative LEUKOCYTE ESTERASE UA (BEAKER) (test vwfd=547) Large Negative UROBILINOGEN UA (BEAKER) (test okkq=077) 0.2 mg/dL 0.2-1.0 RBC UA (BEAKER) (test dkeg=117) 2 /HPF WBC UA (BEAKER) (test fatl=593) 87 /HPF SQUAMOUS EPITHELIAL (BEAKER) (test dbld=974) 3 /HPF SOURCE(BEAKER) (test iolo=7071) Urine, Voided [id number] 14:30:00 Test Item Value Reference Range Comments RPR SCREEN (BEAKER) (test rekr=727) Nonreactive Nonreactive HEMOGLOBIN [id number] 10:58:00 Test Item Value Reference Range Comments HEMOGLOBIN A1C (BEAKER) (test cdlo=801) 5.8 % 4.3-6.1 SEDIMENTATION [id number] 10:44:00 Test Item Value Reference Range Comments SEDIMENTATION RATE, ERYTHROCYTE (BEAKER) (test 52 mm/HR 0-40 dddo=297) T4, [id number] 09:16:00 Test Item Value Reference Range Comments FREE T4 (BEAKER) (test ilyl=656) 0.94 ng/dL 0.70-1.48 TSH/FREE T4 IF [id number] 08:42:00 Test Item Value Reference Range Comments THYROID STIMULATING HORMONE (BEAKER) (test 0.05 uIU/mL 0.35-4.94 frdr=955) VITAMIN B12 AND [id number] 08:37:00 Test Item Value Reference Range Comments VITAMIN B12 (BEAKER) (test ckgu=670) 829 pg/mL 213-816 FOLATE (BEAKER) (test ynlm=747) 15.9 ng/mL >=7.0 [id number] 08:36:00 Test Item Value Reference Range Comments HOMOCYSTEINE (BEAKER) (test vcvu=908) 10.2 umol/L 5.1-15.4 LIPID [id number] 08:26:00 Test Item Value Reference Range Comments TRIGLYCERIDES (BEAKER) (test bqrh=356) 86 mg/dL CHOLESTEROL (BEAKER) (test meed=934) 194 mg/dL HDL CHOLESTEROL (BEAKER) (test zxbe=151) 66 mg/dL LDL CHOLESTEROL CALCULATED (BEAKER) (test 111 mg/dL vhyn=671) Triglyceride Reference Range: Low Risk <150 Borderline 150- 199 High Risk 200-499 Very High Risk >=500Cholesterol Reference Range: Low Risk <200 Borderline 200-239 High Risk > 240HDL Cholesterol Reference Range: Low Risk >=60 High Risk <40LDL Cholesterol Reference Range: Optimal <100 Near Optimal 100-129 Borderline 130-159 High 160-189 Very High >=190 FastingBASIC METABOLIC [id number] 08:26:00 Test Item Value Reference Range Comments SODIUM (BEAKER) (test 136 meq/L 136-145 tolb=805) POTASSIUM (BEAKER) (test 4.7 meq/L 3.5-5.1 oqkh=079) CHLORIDE (BEAKER) (test 99 meq/L 98-107 iwuz=278) CO2 (BEAKER) (test 24 meq/L 22-29 nokm=721) BLOOD UREA NITROGEN 27 mg/dL 7-21 (BEAKER) (test agew=222) CREATININE (BEAKER) (test 1.04 mg/dL 0.57-1.25 bvuj=639) GLUCOSE RANDOM (BEAKER) 133 mg/dL 70-105 (test bsmq=406) CALCIUM (BEAKER) (test 8.8 mg/dL 8.4-10.2 wlbd=126) EGFR (BEAKER) (test 51 mL/min/1.73 sq m ESTIMATED GFR IS NOT ckoj=2936) ACCURATE CREATININE CLEARANCE IN PREDICTING GLOMERULAR FILTRATION RATE. ESTIMATED GFR IS NOT APPLICABLE FOR DIALYSIS PATIENTS. FastingHEPATIC FUNCTION [id number] 08:26:00 Test Item Value Reference Range Comments TOTAL PROTEIN (BEAKER) (test pqjs=070) 6.8 gm/dL 6.0-8.3 ALBUMIN (BEAKER) (test ybvh=5679) 3.4 g/dL 3.5-5.0 BILIRUBIN TOTAL (BEAKER) (test jxlz=255) 0.6 mg/dL 0.2-1.2 BILIRUBIN DIRECT (BEAKER) (test ehpt=607) 0.2 mg/dL 0.1-0.5 ALKALINE PHOSPHATASE (BEAKER) (test bqrq=821) 67 U/L 40-150 AST (SGOT) (BEAKER) (test bduo=544) 16 U/L 5-34 ALT (SGPT) (BEAKER) (test yyir=905) 11 U/L 6-55 FastingCREATINE KINASE (CK), TOTAL AND [id number] 08:26:00 Test Item Value Reference Range Comments CREATINE KINASE TOTAL (BEAKER) (test bhbo=126) 30 U/L 29-200 CREATINE KINASE-MB (BEAKER) (test qzwm=087) 0.8 ng/mL 0.0-6.6 CREATINE KINASE-MB INDEX (BEAKER) (test lxvu=671) 2.7 % CK-MB Reference Range:<6.7 Normal6.7-10.0 Borderline>10.0 AbnormalFastingFastingC-REACTIVE [id number] 08:26:00 Test Item Value Reference Range Comments C-REACTIVE PROTEIN (BEAKER) (test vidn=491) 1.74 mg/dL 0.00-0.50 FastingCBC W/PLT COUNT & AUTO [id number] 07:57:00 Test Item Value Reference Range Comments WHITE BLOOD CELL COUNT (BEAKER) (test zkmc=433) 16.6 K/ L 3.5-10.5 RED BLOOD CELL COUNT (BEAKER) (test eevu=412) 4.21 M/ L 3.93-5.22 HEMOGLOBIN (BEAKER) (test tcjd=231) 12.3 GM/DL 11.2-15.7 HEMATOCRIT (BEAKER) (test yyuh=175) 38.4 % 34.1-44.9 MEAN CORPUSCULAR VOLUME (BEAKER) (test wcld=579) 91.2 fL 79.4-94.8 MEAN CORPUSCULAR HEMOGLOBIN (BEAKER) (test 29.2 pg 25.6-32.2 relu=800) MEAN CORPUSCULAR HEMOGLOBIN CONC (BEAKER) (test 32.0 GM/DL 32.2-35.5 xmbz=598) RED CELL DISTRIBUTION WIDTH (BEAKER) (test 12.9 % 11.7-14.4 fjzh=131) PLATELET COUNT (BEAKER) (test qika=194) 296 K/CU MM 150-450 MEAN PLATELET VOLUME (BEAKER) (test ralr=182) 10.3 fL 9.4-12.3 NUCLEATED RED BLOOD CELLS (BEAKER) (test 0 /100 WBC 0-0 rwhi=068) NEUTROPHILS RELATIVE PERCENT (BEAKER) (test 78 % nkjm=198) LYMPHOCYTES RELATIVE PERCENT (BEAKER) (test 15 % clev=531) MONOCYTES RELATIVE PERCENT (BEAKER) (test 5 % xtco=240) EOSINOPHILS RELATIVE PERCENT (BEAKER) (test 1 % vghu=832) BASOPHILS RELATIVE PERCENT (BEAKER) (test 1 % ucrk=674) NEUTROPHILS ABSOLUTE COUNT (BEAKER) (test 12.92 K/ L 1.56-6.13 vtmv=014) LYMPHOCYTES ABSOLUTE COUNT (BEAKER) (test 2.40 K/ L 1.18-3.74 xlxr=160) MONOCYTES ABSOLUTE COUNT (BEAKER) (test 0.90 K/ L 0.24-0.36 puju=865) EOSINOPHILS ABSOLUTE COUNT (BEAKER) (test 0.08 K/ L 0.04-0.36 zyxh=632) BASOPHILS ABSOLUTE COUNT (BEAKER) (test 0.11 K/ L 0.01-0.08 dffy=768) IMMATURE GRANULOCYTES-RELATIVE PERCENT (BEAKER) 1 % 0-1 (test rurj=0900) TROPONIN [id number] 07:47:00 Test Item Value Reference Range Comments TROPONIN I (BEAKER) (test lgrs=858) 0.01 ng/mL 0.00-0.03 Troponin I (TnI) levels [...]
[2019-06-11] MEDS ORDERED: NA CHLORIDE 0.9% 500 ML ONE (12:04)
[2019-06-11] MEDS ORDERED: FAMOTIDINE 20 MG/2 ML VIAL IV ONE (12:04)
[2019-06-11 12:27] LABS: Absolute Lymphocytes (CBC) 1.6 K/uL (0.7-4.9); Basophils % 0.8 % (0-1.3); Hematocrit 22.1 % (36.0-45.0); Lymphocytes % 10.2 % (15.3-44.8); MPV 8.2 fL (7.6-11.3); RBC Red Blood Cell Count 2.85 M/uL (3.86-4.86)
[2019-06-11 12:46] LABS: ALT/SGPT 12 U/L (12-78); AST/SGOT 10 U/L (15-37); Albumin 2.7 g/dL (3.4-5.0); Alkaline Phosphatase 73 U/L (45-117); BUN Blood Urea Nitrogen 22 mg/dL (7-18); Bicarbonate 25 mmol/L (21-32); Bilirubin Direct < 0.1 mg/dL (0-0.2); Bilirubin Total 0.2 mg/dL (0.2-1.0); Glucose Level 234 mg/dL (74-106); Potassium 4.2 mmol/L (3.5-5.1); Protein, Total 6.7 g/dL (6.4-8.2); Sodium Level 137 mmol/L (136-145)
--- NOTE | 2019-06-11 13:02 | ER ---
Nurse's Notes [facility] Name: Elida Pradhan Age: 83 yrs Sex: Female : 1935 Arrival Date: 06/11/2019 Time: 11:44 Bed 8 Private MD: Diagnosis: rectal bleeding/GI Bleeding, Chest Pain Presentation: 06/10 11:44 Chief complaint: EMS states: [facility] reported bright red blood in the bedside jl7 toilet. Coronavirus screen: Patient denies fever greater than 100.4F, cough, shortness of breath, or difficulty breathing. Proceed with normal triage process. Ebola Screen: No symptoms or risks identified at this time. Initial Sepsis Screen: Does the patient meet any 2 criteria? HR > 90 bpm. No. Patient's initial sepsis screen is negative. Does the patient have a suspected source of infection? No. Patient's initial sepsis screen is negative. Risk Assessment: Do you want to hurt yourself or someone else? Patient reports no desire to harm self or others. Onset of symptoms was June 11, 2019. 11:44 Method Of Arrival: EMS: [facility] 11:44 Acuity: TALYA 3 jl7 Historical: - Allergies: 11:54 Cipro; jl7 11:54 Levaquin; jl7 - Home Meds: 12:34 furosemide 40 mg Oral tab [Active]; potassium chloride 20 mEq Oral TbER [Active]; jl7 methimazole 10 mg Oral tab 1 tab once daily [Active]; acetaminophen-codeine 300-30 mg Oral tab 1 tab every 4 hours [Active]; prednisone 5 mg Oral tab once daily [Active]; apixaban 2.5 mg Oral 1 tab 2 times per day [Active]; metoprolol tartrate 50 mg Oral tab 1 tab 2 times per day [Active]; venlafaxine 75 mg Oral cp24 1 cap once daily [Active]; Xopenex 1.25 mg/3 mL Inhl nebu 3 mL twice a day [Active]; diazepam 5 mg Oral tab 1 tab 2 times per day [Active]; - PMHx: 11:54 Anxiety; CHF; COPD; Dementia; Depression; DYSPHAGIA; GI Bleed; Hypertension; Myocardial jl7 infarction; - Immunization history:: Adult Immunizations up to date. - Social history:: Smoking status: Patient denies any tobacco usage or history of. Screenin:34 Abuse screen: Denies threats or abuse. Denies injuries from another. Nutritional jl7 screening: No deficits noted. Tuberculosis screening: No symptoms or risk factors identified. Fall Risk Secondary diagnosis (15 points) dementia, IV access (20 points). Total Howell Fall Scale indicates Low Risk Score (25-44 pts). Fall prevention measures have been instituted. Side Rails Up X 2 Placed close to Nursing Station Frequent Obs/Assesments occuring As available Patient and Family Educated on Fall Prevention Program and strategies. Assessment: 11:45 General: Appears in no apparent distress. uncomfortable, Behavior is calm, cooperative, jl7 appropriate for age. Pain: Denies pain. Neuro: Level of Consciousness is awake, alert, obeys commands, Oriented to person, place, time, situation. Cardiovascular: Patient's skin is warm and dry. Respiratory: Airway is patent Respiratory effort is even, unlabored, Respiratory pattern is regular, symmetrical. GI: Reports bloody stool. : No signs and/or symptoms were reported regarding the genitourinary system. EENT: No signs and/or symptoms were reported regarding the EENT system. Derm: Skin is dry, Skin is pale, Skin temperature is cool. 12:45 Reassessment: Patient appears in no apparent distress at this time. No changes from jl7 previously documented assessment. Patient and/or family updated on plan of care and expected duration. Pain level reassessed. Patient is alert, oriented x 3, equal unlabored respirations, skin warm/dry/pink. 13:30 Reassessment: Dr. Medel at bedside discussing POC and transfer. Pt verbalized jl7 understanding. 14:45 Reassessment: [facility] at bedside to transport pt. jl7 Vital Signs: 11:44 BP 135 / 61; Pulse 112; Resp 20; Temp 97; Pulse Ox 99% ; jl7 12:30 BP 114 / 45; Pulse 99; Resp 16 S; Pulse Ox 100% on 2 lpm NC; jl7 13:04 BP 120 / 61; Pulse 99; Resp 15 S; Pulse Ox 100% on 2 lpm NC; jl7 14:45 BP 120 / 54; Pulse 81; Resp 17 S; Pulse Ox 100% on 2 lpm NC; jl7 ED Course: 11:44 Patient arrived in ED. jl7 11:51 Geovani Medel MD is Attending Physician. kdr 11:51 Triage completed. jl7 11:59 Evangelist Ch, HARSHAL is Primary Nurse. jl7 12:30 T\T\S collected, blood band applied to patient. jl7 12:31 Arm band placed on right wrist. jl7 12:34 Patient has correct armband on for positive identification. Bed in low position. Call 7 light in reach. Side rails up X2. shirt finisher on. Pulse ox on. NIBP on. Warm blanket given. 12:34 Initial lab(s) drawn, by sd, sent to lab. Inserted saline lock: 22 gauge in right jl forearm, using aseptic technique. Blood collected. 12:57 initiated a transfer with Isabel from the [facility]. eb 13:01 Consent for blood and/or blood product transfusion explained by staff, explained by [facility] physician, signed by patient. 13:26 connected the GI labor relations specialist for [facility] with Dr. Medel for patient transfer eb consultation. 13:[address] Gibbs the hospitalist labor relations specialist for [facility] with Dr. Medel eb for patient transfer consultation. 14:03 administrative approval given by Isabel Donovan/ patient has been accepted to [facility] bed 2106/ Dr. Gibbs has accepted the patient in transfer/ report to be called to [phone]. 14:58 No provider procedures requiring assistance completed. Patient transferred, IV remains jl7 in place. intact, No redness/swelling at site. Administered Medications: 12:10 Drug: NS 0.9% 500 ml Route: IV; Rate: bolus; Site: right forearm; jl7 13:00 Follow up: Response: No adverse reaction; IV Status: Completed infusion; IV Intake: jl7 500ml 12:10 Drug: Pepcid 20 mg Route: IVP; Site: right forearm; 7 12:30 Follow up: Response: No adverse reaction jl7 Medication: 13:30 Blood products: PRBCs X 1 unit given. See transfusion record. jl Point of Care Testing: Guaiac: 12:15 Stool Guaiac: Positive; Stool Hemoccult Control: Pass; jl Intake: 13:00 IV: 500ml; Total: 500ml. jl7 Outcome: 13:00 ER care complete, transfer ordered by . kdr 14:58 Transferred by ground EMS to [facility], Transfer form completed. jl7 X-rays sent w/ patient. 14:58 Condition: stable 14:58 Discharge instructions given to patient, Instructed on the need for transfer, Demonstrated understanding of instructions. 14:59 Patient left the ED. jl7 Signatures: Geovani Medel MD MD kdr Evangelist Ch RN RN [email or web address] Rosalinda Heredia Corrections: (The following items were deleted from the chart) 13:04 13:01 BP 114 / 45; Pulse 99bpm; Resp 16bpm; Spontaneous; Pulse Ox 100% RA; [facility] jl7 14:59 12:30 BP 114 / 45; Pulse 99bpm; Resp 16bpm; Spontaneous; Pulse Ox 100% RA; Andreina jl7 14:59 13:04 BP 120 / 61; Pulse 99bpm; Resp 15bpm; Spontaneous; Pulse Ox 100% RA; [facility] jl7
--- NOTE | 2019-06-11 13:02 | EDPHYS ---
Physician Documentation [facility] Name: Elida Pradhan Age: 83 yrs Sex: Female : 1935 Arrival Date: 06/11/2019 Time: 11:44 Bed 8 Private MD: ED Physician Geovani Medel HPI: 06/10 13:01 This 83 yrs old Female presents to ER via EMS with complaints of Rectal kdr Bleeding. 13:01 The patient presents to the emergency department with bleeding from the rectum/anus, kdr that is mild. Onset: The symptoms/episode began/occurred gradually, 1 month(s) ago. Context: the patient has no known special context relating to the rectal area complaint(s). Modifying factors: The symptoms are alleviated by nothing, The symptoms are aggravated by nothing. Associate signs and symptoms: Pertinent positives: lower GI bleeding, Pertinent negatives: constipation, diarrhea, dysuria, fever. The patient has experienced similar episodes in the past, multiple times, chronically. The patient has not recently seen a physician. Historical: - Allergies: 11:54 Cipro; jl7 11:54 Levaquin; jl7 - Home Meds: 12:34 furosemide 40 mg Oral tab [Active]; potassium chloride 20 mEq Oral TbER [Active]; jl7 methimazole 10 mg Oral tab 1 tab once daily [Active]; acetaminophen-codeine 300-30 mg Oral tab 1 tab every 4 hours [Active]; prednisone 5 mg Oral tab once daily [Active]; apixaban 2.5 mg Oral 1 tab 2 times per day [Active]; metoprolol tartrate 50 mg Oral tab 1 tab 2 times per day [Active]; venlafaxine 75 mg Oral cp24 1 cap once daily [Active]; Xopenex 1.25 mg/3 mL Inhl nebu 3 mL twice a day [Active]; diazepam 5 mg Oral tab 1 tab 2 times per day [Active]; - PMHx: 11:54 Anxiety; CHF; COPD; Dementia; Depression; DYSPHAGIA; GI Bleed; Hypertension; Myocardial jl7 infarction; - Immunization history:: Adult Immunizations up to date. - Social history:: Smoking status: Patient denies any tobacco usage or history of. ROS: 13:01 Constitutional: Negative for fever, chills, and weight loss, Eyes: Negative for injury, kdr pain, redness, and discharge, ENT: Negative for injury, pain, and discharge, Neck: Negative for injury, pain, and swelling, Respiratory: Negative for shortness of breath, cough, wheezing, and pleuritic chest pain, Back: Negative for injury and pain, : Negative for injury, bleeding, discharge, and swelling, MS/Extremity: Negative for injury and deformity, Skin: Negative for injury, rash, and discoloration, Neuro: Negative for headache, weakness, numbness, tingling, and seizure activity. Psych: Negative for depression, anxiety, suicide ideation, homicidal ideation, and hallucinations, Allergy/Immunology: Negative for hives, rash, and allergies, Endocrine: Negative for neck swelling, polydipsia, polyuria, polyphagia, and marked weight changes, Hematologic/Lymphatic: Negative for swollen nodes, abnormal bleeding, and unusual bruising. 13:01 Cardiovascular: Positive for chest pain, Negative for edema, orthopnea, palpitations, paroxysmal nocturnal dyspnea. 13:01 Abdomen/GI: Positive for rectal bleeding, Negative for nausea, vomiting, and diarrhea, constipation, abdominal distension, anorexia, dysphagia, hematemesis, rectal pain. Exam: 13:01 Constitutional: This is a well developed, well nourished patient who is awake, alert, kdr and in no acute distress. Head/Face: Normocephalic, atraumatic. Eyes: Pupils equal round and reactive to light, extra-ocular motions intact. Lids and lashes normal. Conjunctiva and sclera are non-icteric and not injected. Cornea within normal limits. Periorbital areas with no swelling, redness, or edema. Neck: Trachea midline, no thyromegaly or masses palpated, and no cervical lymphadenopathy. Supple, full range of motion without nuchal rigidity, or vertebral point tenderness. No Meningismus. Chest/axilla: Normal chest wall appearance and motion. Nontender with no deformity. No lesions are appreciated. Cardiovascular: Regular rate and rhythm with a normal S1 and S2. No gallops, murmurs, or rubs. Normal PMI, no JVD. No pulse deficits. Respiratory: Lungs have equal breath sounds bilaterally, clear to auscultation and percussion. No rales, rhonchi or wheezes noted. No increased work of breathing, no retractions or nasal flaring. Back: No spinal tenderness. No costovertebral tenderness. Full range of motion. Skin: Warm, dry with normal turgor. Normal color with no rashes, no lesions, and no evidence of cellulitis. MS/ Extremity: Pulses equal, no cyanosis. Neurovascular intact. Full, normal range of motion. Neuro: Awake and alert, GCS 15, oriented to person, place, time, and situation. Cranial nerves II-XII grossly intact. Motor strength 5/5 in all extremities. Sensory grossly intact. Cerebellar exam normal. Normal gait. Psych: Awake, alert, with orientation to person, place and time. Behavior, mood, and affect are within normal limits. 13:01 Abdomen/GI: Inspection: abdomen appears normal, obese Bowel sounds: active, diminished, in all quadrants, Palpation: soft, mild abdominal tenderness, in all quadrants, mass, is not appreciated, rebound tenderness, is not appreciated, Rectal exam: rectal tone normal, Stool: grossly bloody, guaiac positive, hemorrhoid(s), external, with associated bleeding. Vital Signs: 11:44 BP 135 / 61; Pulse 112; Resp 20; Temp 97; Pulse Ox 99% ; jl7 12:30 BP 114 / 45; Pulse 99; Resp 16 S; Pulse Ox 100% on 2 lpm NC; jl7 13:04 BP 120 / 61; Pulse 99; Resp 15 S; Pulse Ox 100% on 2 lpm NC; jl7 14:45 BP 120 / 54; Pulse 81; Resp 17 S; Pulse Ox 100% on 2 lpm NC; jl7 MDM: 13:00 Patient medically screened. kdr 13:01 Data reviewed: vital signs, nurses notes, lab test result(s), radiologic studies. kdr Counseling: I had a detailed discussion with the patient and/or guardian regarding: the historical points, exam findings, and any diagnostic results supporting the discharge/admit diagnosis, lab results, radiology results, the need to transfer to another facility. ED course: The patient was stable in the ED and did not require any acute interventions other than a transfusion. The patient. 06/10 11:52 Order name: Basic Metabolic Panel; Complete Time: 12:49 kdr 06/10 11:52 Order name: CBC with Diff; Complete Time: 12:36 kdr 06/10 11:52 Order name: Creatinine for Radiology; Complete Time: 12:49 kdr 06/10 11:52 Order name: Hepatic Function; Complete Time: 12:49 kdr 06/10 11:52 Order name: Type And Screen kdr 06/10 12:33 Order name: Bb Add On eb 06/10 12:41 Order name: Packed RBC Leukored EDNC 06/10 14:45 Order name: PT-INR eb 06/10 14:45 Order name: Ptt, Activated eb 06/10 11:52 Order name: IV Saline Lock; Complete Time: 12:30 kdr 06/10 11:52 Order name: Labs collected and sent; Complete Time: 12:30 kdr Administered Medications: 12:10 Drug: NS 0.9% 500 ml Route: IV; Rate: bolus; Site: right forearm; jl7 13:00 Follow up: Response: No adverse reaction; IV Status: Completed infusion; IV Intake: jl7 500ml 12:10 Drug: Pepcid 20 mg Route: IVP; Site: right forearm; jl7 12:30 Follow up: Response: No adverse reaction jl7 Point of Care Testing: Guaiac: 12:15 Stool Guaiac: Positive; Stool Hemoccult Control: Pass; jl7 Disposition: 06/11/19 13:00 Transfer ordered to [facility]. Diagnosis is rectal bleeding/GI Bleeding, Chest Pain. - Reason for transfer: Higher level of care. - Accepting physician is [facility]. - Condition is Fair. - Problem is an acute exacerbation. - Symptoms are unchanged. Signatures: Dispatcher [employer] [facility] Geovani Medel MD MD kdr Evangelist Ch RN RN jl7 Corrections: (The following items were deleted from the chart) 13:47 13:00 06/11/2019 13:00 Transfer ordered to [facility]. kdr Diagnosis is rectal bleeding/GI Bleeding, Chest Pain. Reason for transfer: Higher level of care. Accepting physician is [facility]. Condition is Fair. Problem is an acute exacerbation. Symptoms are unchanged. kdr 14:59 13:47 06/11/2019 13:00 Transfer ordered to [facility]. jl7 Diagnosis is rectal bleeding/GI Bleeding, Chest Pain. Reason for transfer: Higher level of care. Accepting physician is [facility] Gibbs. Condition is Fair. Problem is an acute exacerbation. Symptoms are unchanged. kdr
[2019-06-11] MEDS ORDERED: NA CHLORIDE 0.9% 250 ML ONE (13:15)
[2019-06-11 15:05] VITALS: O2SAT 100
[2019-06-11 15:08] VITALS: BP 120/54
[2019-06-11 15:16] LABS: Protime INR 1.4
== END 2019-06-11 14:59 | disposition short-term general hospital (02) ==
LOC: ER 11:49
PROC: 30233N1 Transfusion of Nonautologous Red Blood Cells into Peripheral Vein, Percutaneous Approach (ICD-10-PCS; principal; 2019-06-11)
DX: K92.2 Gastrointestinal hemorrhage, unspecified (principal); R07.9 Chest pain, unspecified; Y92.122 Bedroom in nursing home as the place of occurrence of the external cause; Z88.1 Allergy status to other antibiotic agents; I10 Essential (primary) hypertension; I50.9 Heart failure, unspecified; F03.90 Unspecified dementia, unspecified severity, without behavioral disturbance, psychotic disturbance, mood disturbance, and anxiety
CPT/HCPCS: 96361; 85025; 80048; 36415; 86900; 86850; 85610; 86901; 80076; 85730; 36430 ×2; 96374; 99285; P9016; J7030; J7040

== ENCOUNTER 2019-07-21 13:22 | Emergency (ER) | payer OTHER ==
--- OUTSIDE RECORDS SUMMARY | 2019-07-21 13:29 | XMS REPORT ---
:1935 Author Organization [facility] t Address [address] [place] [address] Care Team Providers Name Role Phone JAROCHO OLIVEIRAAIDAN Unavailable Unavailable YOVANY ELLINGTON Unavailable Unavailable BRANN, MADELINE Unavailable Unavailable DOWELL Unavailable Unavailable Problems This patient has no known problems. Allergies, Adverse Reactions, Alerts This patient has no known allergies or adverse reactions. Medications This patient has no known medications. Results Test Description Test Time Test Comments Text Results Atomic Results Result Comments BASIC METABOLIC PANEL 2019-06-14 04:56:00 Test Item Value Reference Range Comments SODIUM (BEAKER) (test code = 140 meq/L 136-145 381) POTASSIUM (BEAKER) (test 4.0 meq/L 3.5-5.1 code = 379) CHLORIDE (BEAKER) (test code 105 meq/L 98-107 = 382) CO2 (BEAKER) (test code = 28 meq/L 22-29 355) BLOOD UREA NITROGEN (BEAKER) 15 mg/dL 7-21 (test code = 354) CREATININE (BEAKER) (test 1.27 mg/dL 0.57-1.25 code = 358) GLUCOSE RANDOM (BEAKER) 100 mg/dL 70-105 (test code = 652) CALCIUM (BEAKER) (test code 9.0 mg/dL 8.4-10.2 = 697) EGFR (BEAKER) (test code = 40 mL/min/1.73 sq m E STIMATED GFR IS NOT 1092) ACCURATE CREA TININE CLEARANCE IN PRE DICTING GLOMERULAR FILTR ATION RATE. ESTIMATED GFR IS NOT APPLICABLE FOR D IALYSIS PATIENTS. Human Resources Services Specialist ID - CONNOR MHEMOGLOBIN AND [id number] 04:27:00 Test Item Value Reference Range Comments HEMOGLOBIN (BEAKER) (test code = 410) 8.8 GM/DL 11.2-15.7 HEMATOCRIT (BEAKER) (test code = 411) 28.1 % 34.1-44.9 Human Resources Services Specialist ID - [id number] AND [id number] 20:34:00 Test Item Value Reference Range Comments HEMOGLOBIN (BEAKER) (test code = 410) 8.0 GM/DL 11.2-15.7 HEMATOCRIT (BEAKER) (test code = 411) 25.7 % 34.1-44.9 Human Resources Services Specialist ID - [id number] AND [id number] 09:47:00 Test Item Value Reference Range Comments HEMOGLOBIN (BEAKER) (test code = 410) 7.3 GM/DL 11.2-15.7 HEMATOCRIT (BEAKER) (test code = 411) 24.1 % 34.1-44.9 Human Resources Services Specialist ID - [id number] W/PLT COUNT & AUTO [id number] 05:18:00 Test Item Value Reference Range Comments WHITE BLOOD CELL COUNT (BEAKER) (test code = 15.4 K/ L 3.5 -10.5 775) RED BLOOD CELL COUNT (BEAKER) (test code = 761) 2.85 M/ L 3.93-5.22 HEMOGLOBIN (BEAKER) (test code = 410) 7.2 GM/DL 11.2-15.7 HEMATOCRIT (BEAKER) (test code = 411) 23.6 % 34.1-44.9 MEAN CORPUSCULAR VOLUME (BEAKER) (test code = 82.8 fL 79 .4-94.8 753) MEAN CORPUSCULAR HEMOGLOBIN (BEAKER) (test code 25.3 pg 25.6-32.2 = 751) MEAN CORPUSCULAR HEMOGLOBIN CONC (BEAKER) (test 30.5 GM/DL 32.2-35.5 code = 752) RED CELL DISTRIBUTION WIDTH (BEAKER) (test code 14.6 % 11.7-14.4 = 412) PLATELET COUNT (BEAKER) (test code = 756) 303 K/CU MM 150-45 0 MEAN PLATELET VOLUME (BEAKER) (test code = 754) 10.0 fL 9.4-12.3 NUCLEATED RED BLOOD CELLS (BEAKER) (test code = 0 /100 WBC 0-0 413) NEUTROPHILS RELATIVE PERCENT (BEAKER) (test code 74 % = 429) LYMPHOCYTES RELATIVE PERCENT (BEAKER) (test code 16 % = 430) MONOCYTES RELATIVE PERCENT (BEAKER) (test code = 7 % 431) EOSINOPHILS RELATIVE PERCENT (BEAKER) (test code 1 % = 432) BASOPHILS RELATIVE PERCENT (BEAKER) (test code = 1 % 437) NEUTROPHILS ABSOLUTE COUNT (BEAKER) (test code = 11.41 K/ L 1.56-6.13 670) LYMPHOCYTES ABSOLUTE COUNT (BEAKER) (test code = 2.45 K/ L 1.18-3.74 414) MONOCYTES ABSOLUTE COUNT (BEAKER) (test code = 1.12 K/ L 0 .24-0.36 415) EOSINOPHILS ABSOLUTE COUNT (BEAKER) (test code = 0.20 K/ L 0.04-0.36 416) BASOPHILS ABSOLUTE COUNT (BEAKER) (test code = 0.10 K/ L 0 .01-0.08 417) IMMATURE GRANULOCYTES-RELATIVE PERCENT (BEAKER) 1 % 0-1 (test code = 2801) [id number] 14:34:00 Test Item Value Reference Range Comments FERRITIN (BEAKER) (test code = 361) 10 ng/mL 5-275 Human Resources Services Specialist ID - BSIRON, TIBC, % SAT. (WITHOUT FERRITIN)2019-06-12 14:18:00 Test Item Value Reference Range Comments IRON (BEAKER) (test code = 547) 16.0 ug/dL 40.0-160.0 TOTAL IRON BINDING CAPACITY (BEAKER) (test code = 286 ug/dL 250-450 769) IRON % SATURATION (2) (BEAKER) (test code = 2590) 6 % 20-55 Human Resources Services Specialist ID - BSHEMOGLOBIN AND [id number] 13:56:00 Test Item Value Reference Range Comments HEMOGLOBIN (BEAKER) (test code = 410) 7.2 GM/DL 11.2-15.7 HEMATOCRIT (BEAKER) (test code = 411) 23.2 % 34.1-44.9 Human Resources Services Specialist ID - [id number] 06:09:00 Test Item Value Reference Range Comments MAGNESIUM (BEAKER) (test code = 627) 2.2 mg/dL 1.6-2.6 Human Resources Services Specialist ID - PIAYA LBASIC METABOLIC [id number] 06:09:00 Test Item Value Reference Range Comments SODIUM (BEAKER) (test 137 meq/L 136-145 code = 381) POTASSIUM (BEAKER) (test 4.1 meq/L 3.5-5.1 code = 379) CHLORIDE (BEAKER) (test 103 meq/L 98-107 code = 382) CO2 (BEAKER) (test code = 29 meq/L 22-29 355) BLOOD UREA NITROGEN 17 mg/dL 7-21 (BEAKER) (test code = 354) CREATININE (BEAKER) (test 1.24 mg/dL 0.57-1.25 code = 358) GLUCOSE RANDOM (BEAKER) 103 mg/dL 70-105 (test code = 652) CALCIUM (BEAKER) (test 8.1 mg/dL 8.4-10.2 code = 697) EGFR (BEAKER) (test code 41 mL/min/1.73 sq m EST IMATED GFR IS NOT = 1092) ACCURATE CREA TININE CLEARANCE IN PRE DICTING GLOMERULAR FILTR ATION RATE. ESTIMATED GFR IS NOT APPLICABLE F OR DIALYSIS PATIENT S. Human Resources Services Specialist ID - PIAYA LCBC W/PLT COUNT & AUTO [id number] 05:34:00 Test Item Value Reference Range Comments WHITE BLOOD CELL COUNT (BEAKER) (test code = 15.9 K/ L 3.5 -10.5 775) RED BLOOD CELL COUNT (BEAKER) (test code = 761) 2.93 M/ L 3.93-5.22 HEMOGLOBIN (BEAKER) (test code = 410) 7.5 GM/DL 11.2-15.7 HEMATOCRIT (BEAKER) (test code = 411) 24.1 % 34.1-44.9 MEAN CORPUSCULAR VOLUME (BEAKER) (test code = 82.3 fL 79 .4-94.8 753) MEAN CORPUSCULAR HEMOGLOBIN (BEAKER) (test code 25.6 pg 25.6-32.2 = 751) MEAN CORPUSCULAR HEMOGLOBIN CONC (BEAKER) (test 31.1 GM/DL 32.2-35.5 code = 752) RED CELL DISTRIBUTION WIDTH (BEAKER) (test code 14.1 % 11.7-14.4 = 412) PLATELET COUNT (BEAKER) (test code = 756) 313 K/CU MM 150-45 0 MEAN PLATELET VOLUME (BEAKER) (test code = 754) 9.9 fL 9.4-12.3 NUCLEATED RED BLOOD CELLS (BEAKER) (test code = 0 /100 WBC 0-0 413) NEUTROPHILS RELATIVE PERCENT (BEAKER) (test code 74 % = 429) LYMPHOCYTES RELATIVE PERCENT (BEAKER) (test code 16 % = 430) MONOCYTES RELATIVE PERCENT (BEAKER) (test code = 7 % 431) EOSINOPHILS RELATIVE PERCENT (BEAKER) (test code 2 % = 432) BASOPHILS RELATIVE PERCENT (BEAKER) (test code = 1 % 437) NEUTROPHILS ABSOLUTE COUNT (BEAKER) (test code = 11.84 K/ L 1.56-6.13 670) LYMPHOCYTES ABSOLUTE COUNT (BEAKER) (test code = 2.48 K/ L 1.18-3.74 414) MONOCYTES ABSOLUTE COUNT (BEAKER) (test code = 1.08 K/ L 0 .24-0.36 415) EOSINOPHILS ABSOLUTE COUNT (BEAKER) (test code = 0.28 K/ L 0.04-0.36 416) BASOPHILS ABSOLUTE COUNT (BEAKER) (test code = 0.10 K/ L 0 .01-0.08 417) IMMATURE GRANULOCYTES-RELATIVE PERCENT (BEAKER) 1 % 0-1 (test code = 2801) TROPONIN [id number] 00:15:00 Test Item Value Reference Range Comments TROPONIN I (BEAKER) (test code = 397) 0.01 ng/mL 0.00-0.03 Troponin I (TnI) levels [...] failure, acidosis, acute neurological disease, and persistent tachyarrhythmia.Human Resources Services Specialist ID - PIAYA LHEMOGLOBIN AND [id number] 23:53:00 Test Item Value Reference Range Comments HEMOGLOBIN (BEAKER) (test code = 410) 7.0 GM/DL 11.2-15.7 HEMATOCRIT (BEAKER) (test code = 411) 22.2 % 34.1-44.9 Human Resources Services Specialist ID - [id number] 19:14:00 Test Item Value Reference Range Comments TROPONIN I (BEAKER) (test code = 397) 0.02 ng/mL 0.00-0.03 Troponin I (TnI) levels [...] failure, acidosis, acute neurological disease, and persistent tachyarrhythmia.Human Resources Services Specialist SHAWN ALICIA WBASIC METABOLIC [id number] 19:09:00 Test Item Value Reference Range Comments SODIUM (BEAKER) (test 136 meq/L 136-145 code = 381) POTASSIUM (BEAKER) (test 4.6 meq/L 3.5-5.1 code = 379) CHLORIDE (BEAKER) (test 102 meq/L 98-107 code = 382) CO2 (BEAKER) (test code = 26 meq/L 22-29 355) BLOOD UREA NITROGEN 19 mg/dL 7-21 (BEAKER) (test code = 354) CREATININE (BEAKER) (test 1.31 mg/dL 0.57-1.25 code = 358) GLUCOSE RANDOM (BEAKER) 133 mg/dL 70-105 (test code = 652) CALCIUM (BEAKER) (test 7.9 mg/dL 8.4-10.2 code = 697) EGFR (BEAKER) (test code 39 mL/min/1.73 sq m EST IMATED GFR IS NOT = 1092) ACCURATE CREA TININE CLEARANCE IN PRE DICTING GLOMERULAR FILTR ATION RATE. ESTIMATED GFR IS NOT APPLICABLE F OR DIALYSIS PATIENT S. Human Resources Services Specialist SHAWN ALICIA [id number] 19:07:00 Test Item Value Reference Range Comments MAGNESIUM (BEAKER) (test code = 627) 2.1 mg/dL 1.6-2.6 Human Resources Services Specialist SHAWN ALICIA WCBC W/PLT COUNT & AUTO [id number] 18:54:00 Test Item Value Reference Range Comments WHITE BLOOD CELL COUNT (BEAKER) (test code = 15.1 K/ L 3.5 -10.5 775) RED BLOOD CELL COUNT (BEAKER) (test code = 761) 2.95 M/ L 3.93-5.22 HEMOGLOBIN (BEAKER) (test code = 410) 7.6 GM/DL 11.2-15.7 HEMATOCRIT (BEAKER) (test code = 411) 25.0 % 34.1-44.9 MEAN CORPUSCULAR VOLUME (BEAKER) (test code = 84.7 fL 79 .4-94.8 753) MEAN CORPUSCULAR HEMOGLOBIN (BEAKER) (test code 25.8 pg 25.6-32.2 = 751) MEAN CORPUSCULAR HEMOGLOBIN CONC (BEAKER) (test 30.4 GM/DL 32.2-35.5 code = 752) RED CELL DISTRIBUTION WIDTH (BEAKER) (test code 14.0 % 11.7-14.4 = 412) PLATELET COUNT (BEAKER) (test code = 756) 307 K/CU MM 150-45 0 MEAN PLATELET VOLUME (BEAKER) (test code = 754) 9.9 fL 9.4-12.3 NUCLEATED RED BLOOD CELLS (BEAKER) (test code = 0 /100 WBC 0-0 413) NEUTROPHILS RELATIVE PERCENT (BEAKER) (test code 86 % = 429) LYMPHOCYTES RELATIVE PERCENT (BEAKER) (test code 9 % = 430) MONOCYTES RELATIVE PERCENT (BEAKER) (test code = 3 % 431) EOSINOPHILS RELATIVE PERCENT (BEAKER) (test code 0 % = 432) BASOPHILS RELATIVE PERCENT (BEAKER) (test code = 1 % 437) NEUTROPHILS ABSOLUTE COUNT (BEAKER) (test code = 12.92 K/ L 1.56-6.13 670) LYMPHOCYTES ABSOLUTE COUNT (BEAKER) (test code = 1.40 K/ L 1.18-3.74 414) MONOCYTES ABSOLUTE COUNT (BEAKER) (test code = 0.52 K/ L 0 .24-0.36 415) EOSINOPHILS ABSOLUTE COUNT (BEAKER) (test code = 0.03 K/ L 0.04-0.36 416) BASOPHILS ABSOLUTE COUNT (BEAKER) (test code = 0.11 K/ L 0 .01-0.08 417) IMMATURE GRANULOCYTES-RELATIVE PERCENT (BEAKER) 1 % 0-1 (test code = 2801) TISSUE [id number] 12:26:00Surgical Pathology Report Case: [id number] Authorizing Provider: Zarina Murrell MD Collected: 10/29/2018 1228 Ordering Location: [address] Received: 10/31/2018 0811 Service Pathologist: Amanda Guajardo MD Specimens: A) -Polyp, Colon - Sigmoid, via hot snare B) - Polyp, Colon - Rectum, via hot snare, 2 polyps in Jab B A.COLON, SIGMOID, ENDOSCOPIC POLYPECTOMY: - SESSILE SERRATED POLYP - NEGATIVE FOR HIGH GRADE DYSPLASIA OR MALIGNANCYB.COLON,RECTUM, POLYP X 2, ENDOSCOPIC POLYPECTOMY: - PIECES OF TUBULAR ADENOMA - NO DEFINITE HIGH GRADE DYSPLASIA SEEN - NO MALIGNANCY PRESENT Signing Pathologist Direct Phone Line: [phone] signed by Amanda Guajardo MD on 2018 at 12:26 [id number] X 2Pre and postop diagnosis: hematocheziaA. Polyp, colon - sigmoid; B. Polyp, colon - rectum, 2 polyps A. Received in formalin la beled with the patient's name, accession number and "polyp, colon - sigmoid" is a 0.7 x 0.5 x 0.5 cmirregular pink polyp. The base is inked blue and the specimen is bisected and entirely submitted in A1. B. Received in formalin labeled with the patient's name, accession number and "polyp, colon - rectum" is a 1.5 x 1.5 x 0.4 cm aggregate of multiple, irregular arana-pink polypoid tissue fragments. Thelarger tissues are sectioned and the specimen is entirely submitted in B1-B3. CG/pl PERFORMEDBASIC METABOLIC [id number] 05:20:00 Test Item Value Reference Range Comments SODIUM (BEAKER) (test 136 meq/L 136-145 code = 381) POTASSIUM (BEAKER) (test 4.1 meq/L 3.5-5.1 code = 379) CHLORIDE (BEAKER) (test 102 meq/L 98-107 code = 382) CO2 (BEAKER) (test code = 26 meq/L 22-29 355) BLOOD UREA NITROGEN 21 mg/dL 7-21 (BEAKER) (test code = 354) CREATININE (BEAKER) (test 1.15 mg/dL 0.57-1.25 code = 358) GLUCOSE RANDOM (BEAKER) 91 mg/dL 70-105 (test code = 652) CALCIUM (BEAKER) (test 8.7 mg/dL 8.4-10.2 code = 697) EGFR (BEAKER) (test code 45 mL/min/1.73 sq m EST IMATED GFR IS NOT = 1092) ACCURATE CREA TININE CLEARANCE IN PRE DICTING GLOMERULAR FILTR ATION RATE. ESTIMATED GFR IS NOT APPLICABLE F OR DIALYSIS PATIENT S. HEMOGLOBIN AND [id number] 04:49:00 Test Item Value Reference Range Comments HEMOGLOBIN (BEAKER) (test code = 410) 10.0 GM/DL 11.2-15.7 HEMATOCRIT (BEAKER) (test code = 411) 33.3 % 34.1-44.9 BASIC METABOLIC [id number] 07:15:00 Test Item Value Reference Range Comments SODIUM (BEAKER) (test 138 meq/L 136-145 code = 381) POTASSIUM (BEAKER) (test 3.8 meq/L 3.5-5.1 code = 379) CHLORIDE (BEAKER) (test 103 meq/L 98-107 code = 382) CO2 (BEAKER) (test code = 27 meq/L 22-29 355) BLOOD UREA NITROGEN 26 mg/dL 7-21 (BEAKER) (test code = 354) CREATININE (BEAKER) (test 1.21 mg/dL 0.57-1.25 code = 358) GLUCOSE RANDOM (BEAKER) 106 mg/dL 70-105 (test code = 652) CALCIUM (BEAKER) (test 8.8 mg/dL 8.4-10.2 code = 697) EGFR (BEAKER) (test code 42 mL/min/1.73 sq m EST IMATED GFR IS NOT = 1092) ACCURATE CREA TININE CLEARANCE IN PRE DICTING GLOMERULAR FILTR ATION RATE. ESTIMATED GFR IS NOT APPLICABLE F OR DIALYSIS PATIENT S. HEMOGLOBIN AND [id number] 06:27:00 Test Item Value Reference Range Comments HEMOGLOBIN (BEAKER) (test code = 410) 9.6 GM/DL 11.2-15.7 HEMATOCRIT (BEAKER) (test code = 411) 31.4 % 34.1-44.9 TROPONIN [id number] 14:57:00 Test Item Value Reference Range Comments TROPONIN I (BEAKER) (test code = 397) 0.02 ng/mL 0.00-0.03 Troponin I (TnI) levels [...] acute neurological disease, and persistent tachyarrhythmia.HEMOGLOBIN AND [id number] 14:30:00 Test Item Value Reference Range Comments HEMOGLOBIN (BEAKER) (test code = 410) 10.4 GM/DL 11.2-15.7 HEMATOCRIT (BEAKER) (test code = 411) 33.6 % 34.1-44.9 POCT-GLUCOSE [id number] 13:29:00 Test Item Value Reference Range Comments POC-GLUCOSE METER (BEAKER) 123 mg/dL 70-110 TESTE D AT [facility] [address] (test code = 1538) [facility] 77 030 TROPONIN [id number] 07:54:00 Test Item Value Reference Range Comments TROPONIN I (BEAKER) (test code = 397) < ng/mL 0.00-0.03 Troponin I (TnI) levels [...] and persistent tachyarrhythmia.RAD, CHEST, 1 VIEW, NON [id number] 06:59:00Reason for exam:->chest painShould this be performed at the bedside?->YesFINAL REPORT Chest, one view. HISTORY: chest pain COMPARISON: None IMPRESSION: Tortuous thoracic aorta with a prominent ascending thoracic aorta. Consider a CTA on for further evaluation. The cardiac silhouette is near the upper limit of normal in size. Pulmonary venous congestion. Streaky opacities in the right base are likely due to atelectasis. No pleural effusion or pneumothorax. No acute bony abnormality. Signed: Ankush Munozort Verified Date/Time: 10/29/2018 06:59:47 Reading Location: [facility] B1 C013Y CT Body Reading Room HEMOGLOBIN AND [id number] 06:05:00 Test Item Value Reference Range Comments HEMOGLOBIN (BEAKER) (test code = 410) 10.9 GM/DL 11.2-15.7 HEMATOCRIT (BEAKER) (test code = 411) 36.0 % 34.1-44.9 BASIC METABOLIC [id number] 03:58:00 Test Item Value Reference Range Comments SODIUM (BEAKER) (test 138 meq/L 136-145 code = 381) POTASSIUM (BEAKER) (test 4.7 meq/L 3.5-5.1 code = 379) CHLORIDE (BEAKER) (test 98 meq/L 98-107 code = 382) CO2 (BEAKER) (test code = 27 meq/L 22-29 355) BLOOD UREA NITROGEN 27 mg/dL 7-21 (BEAKER) (test code = 354) CREATININE (BEAKER) (test 1.43 mg/dL 0.57-1.25 code = 358) GLUCOSE RANDOM (BEAKER) 110 mg/dL 70-105 (test code = 652) CALCIUM (BEAKER) (test 9.7 mg/dL 8.4-10.2 code = 697) EGFR (BEAKER) (test code 35 mL/min/1.73 sq m EST IMATED GFR IS NOT = 1092) ACCURATE CREA TININE CLEARANCE IN PRE DICTING GLOMERULAR FILTR ATION RATE. ESTIMATED GFR IS NOT APPLICABLE F OR DIALYSIS PATIENT S. TROPONIN [id number] 02:12:00 Test Item Value Reference Range Comments TROPONIN I (BEAKER) (test code = 397) 0.01 ng/mL 0.00-0.03 Troponin I (TnI) levels [...] failure, acidosis, acute neurological disease, and persistent tachyarrhythmia.[id number] 02:06:00 Test Item Value Reference Range Comments MAGNESIUM (BEAKER) (test code = 627) 2.1 mg/dL 1.6-2.6 CBC W/PLT COUNT & AUTO [id number] 20:23:00 Test Item Value Reference Range Comments WHITE BLOOD CELL COUNT (BEAKER) (test code = 13.9 K/ L 3.5 -10.5 775) RED BLOOD CELL COUNT (BEAKER) (test code = 761) 4.06 M/ L 3.93-5.22 HEMOGLOBIN (BEAKER) (test code = 410) 10.5 GM/DL 11.2-15.7 HEMATOCRIT (BEAKER) (test code = 411) 34.3 % 34.1-44.9 MEAN CORPUSCULAR VOLUME (BEAKER) (test code = 84.5 fL 79 .4-94.8 753) MEAN CORPUSCULAR HEMOGLOBIN (BEAKER) (test code 25.9 pg 25.6-32.2 = 751) MEAN CORPUSCULAR HEMOGLOBIN CONC (BEAKER) (test 30.6 GM/DL 32.2-35.5 code = 752) RED CELL DISTRIBUTION WIDTH (BEAKER) (test code 13.3 % 11.7-14.4 = 412) PLATELET COUNT (BEAKER) (test code = 756) 326 K/CU MM 150-45 0 MEAN PLATELET VOLUME (BEAKER) (test code = 754) 9.7 fL 9.4-12.3 NUCLEATED RED BLOOD CELLS (BEAKER) (test code = 0 /100 WBC 0-0 413) NEUTROPHILS RELATIVE PERCENT (BEAKER) (test code 76 % = 429) LYMPHOCYTES RELATIVE PERCENT (BEAKER) (test code 16 % = 430) MONOCYTES RELATIVE PERCENT (BEAKER) (test code = 5 % 431) EOSINOPHILS RELATIVE PERCENT (BEAKER) (test code 1 % = 432) BASOPHILS RELATIVE PERCENT (BEAKER) (test code = 1 % 437) NEUTROPHILS ABSOLUTE COUNT (BEAKER) (test code = 10.66 K/ L 1.56-6.13 670) LYMPHOCYTES ABSOLUTE COUNT (BEAKER) (test code = 2.28 K/ L 1.18-3.74 414) MONOCYTES ABSOLUTE COUNT (BEAKER) (test code = 0.74 K/ L 0 .24-0.36 415) EOSINOPHILS ABSOLUTE COUNT (BEAKER) (test code = 0.13 K/ L 0.04-0.36 416) BASOPHILS ABSOLUTE COUNT (BEAKER) (test code = 0.08 K/ L 0 .01-0.08 417) IMMATURE GRANULOCYTES-RELATIVE PERCENT (BEAKER) 0 % 0-1 (test code = 2801) BASIC METABOLIC [id number] 05:58:00 Test Item Value Reference Range Comments SODIUM (BEAKER) (test 139 meq/L 136-145 code = 381) POTASSIUM (BEAKER) (test 4.3 meq/L 3.5-5.1 code = 379) CHLORIDE (BEAKER) (test 97 meq/L 98-107 code = 382) CO2 (BEAKER) (test code = 34 meq/L 22-29 355) BLOOD UREA NITROGEN 16 mg/dL 7-21 (BEAKER) (test code = 354) CREATININE (BEAKER) (test 0.81 mg/dL 0.57-1.25 code = 358) GLUCOSE RANDOM (BEAKER) 126 mg/dL 70-105 (test code = 652) CALCIUM (BEAKER) (test 9.8 mg/dL 8.4-10.2 code = 697) EGFR (BEAKER) (test code 67 mL/min/1.73 sq m EST IMATED GFR IS NOT = 1092) ACCURATE CREA TININE CLEARANCE IN PRE DICTING GLOMERULAR FILTR ATION RATE. ESTIMATED GFR IS NOT APPLICABLE F OR DIALYSIS PATIENT S. CBC (HEMOGRAM ONLY)2018-09-05 05:33:00 Test Item Value Reference Range Comments WHITE BLOOD CELL COUNT (BEAKER) (test code = 14.3 K/ L 3.5 -10.5 775) RED BLOOD CELL COUNT (BEAKER) (test code = 761) 3.26 M/ L 3.93-5.22 HEMOGLOBIN (BEAKER) (test code = 410) 9.0 GM/DL 11.2-15.7 HEMATOCRIT (BEAKER) (test code = 411) 29.6 % 34.1-44.9 MEAN CORPUSCULAR VOLUME (BEAKER) (test code = 90.8 fL 79 .4-94.8 753) MEAN CORPUSCULAR HEMOGLOBIN (BEAKER) (test code 27.6 pg 25.6-32.2 = 751) MEAN CORPUSCULAR HEMOGLOBIN CONC (BEAKER) (test 30.4 GM/DL 32.2-35.5 code = 752) RED CELL DISTRIBUTION WIDTH (BEAKER) (test code 12.7 % 11.7-14.4 = 412) PLATELET COUNT (BEAKER) (test code = 756) 302 K/CU MM 150-45 0 MEAN PLATELET VOLUME (BEAKER) (test code = 754) 10.7 fL 9.4-12.3 NUCLEATED RED BLOOD CELLS (BEAKER) (test code = 0 /100 WBC 0-0 413) THROMBOELASTOGRAPH (TEG)2018-09-04 20:35:00 Test Item Value Reference Range Comments TEG ACTIVATED CLOTTING TIME (BEAKER) (test code 4.5 minutes 4.0-7.0 = 1407) TEG FIBRINOGEN ACTIVITY (BEAKER) (test code = 78.3 degrees 61 .0-73.0 1408) TEG PLT. AGGREGATION (BEAKER) (test code = 71.4 MM 55.0- 65.0 1409) TEG FIBRINOLYSIS (BEAKER) (test code = 1410) 1.0 % 0.0 -5.0 TGH ACTIVATED CLOTTING TIME (BEAKER) (test code 4.5 minutes 4.0-7.0 = 1411) TGH FIBRINOGEN ACTIVITY (BEAKER) (test code = 75.3 degrees 61 .0-73.0 1412) TGH PLT. AGGREGATION (BEAKER) (test code = 62.9 MM 55.0- 65.0 1413) TGH FIBRINOLYSIS (BEAKER) (test code = 1414) 2.2 % 0.0 -5.0 HEMOGLOBIN AND [id number] 18:46:00 Test Item Value Reference Range Comments HEMOGLOBIN (BEAKER) (test code = 410) 8.6 GM/DL 11.2-15.7 HEMATOCRIT (BEAKER) (test code = 411) 27.7 % 34.1-44.9 HEMOGLOBIN AND [id number] 17:10:00 Test Item Value Reference Range Comments HEMOGLOBIN (BEAKER) (test code = 410) 7.6 GM/DL 11.2-15.7 HEMATOCRIT (BEAKER) (test code = 411) 24.4 % 34.1-44.9 T4, [id number] 14:16:00 Test Item Value Reference Range Comments FREE T4 (BEAKER) (test code = 655) 1.14 ng/dL 0.70-1.48 TSH/FREE T4 IF [id number] 13:15:00 Test Item Value Reference Range Comments THYROID STIMULATING HORMONE (BEAKER) (test code 0.01 uIU/mL 0.35-4.94 = 772) CBC (HEMOGRAM ONLY)2018-09-04 11:11:00 Test Item Value Reference Range Comments WHITE BLOOD CELL COUNT (BEAKER) (test code = 7.7 K/ L 3.5 -10.5 775) RED BLOOD CELL COUNT (BEAKER) (test code = 761) 3.31 M/ L 3.93-5.22 HEMOGLOBIN (BEAKER) (test code = 410) 9.0 GM/DL 11.2-15.7 HEMATOCRIT (BEAKER) (test code = 411) 29.7 % 34.1-44.9 MEAN CORPUSCULAR VOLUME (BEAKER) (test code = 89.7 fL 79 .4-94.8 753) MEAN CORPUSCULAR HEMOGLOBIN (BEAKER) (test code 27.2 pg 25.6-32.2 = 751) MEAN CORPUSCULAR HEMOGLOBIN CONC (BEAKER) (test 30.3 GM/DL 32.2-35.5 code = 752) RED CELL DISTRIBUTION WIDTH (BEAKER) (test code 12.5 % 11.7-14.4 = 412) PLATELET COUNT (BEAKER) (test code = 756) 292 K/CU MM 150-45 0 MEAN PLATELET VOLUME (BEAKER) (test code = 754) 10.5 fL 9.4-12.3 NUCLEATED RED BLOOD CELLS (BEAKER) (test code = 0 /100 WBC 0-0 413) [id number] 04:37:00 Test Item Value Reference Range Comments MAGNESIUM (BEAKER) (test code = 627) 1.8 mg/dL 1.6-2.6 BASIC METABOLIC [id number] 04:37:00 Test Item Value Reference Range Comments SODIUM (BEAKER) (test 137 meq/L 136-145 code = 381) POTASSIUM (BEAKER) (test 4.4 meq/L 3.5-5.1 code = 379) CHLORIDE (BEAKER) (test 94 meq/L 98-107 code = 382) CO2 (BEAKER) (test code = 35 meq/L 22-29 355) BLOOD UREA NITROGEN 14 mg/dL 7-21 (BEAKER) (test code = 354) CREATININE (BEAKER) (test 0.88 mg/dL 0.57-1.25 code = 358) GLUCOSE RANDOM (BEAKER) 183 mg/dL 70-105 (test code = 652) CALCIUM (BEAKER) (test 9.2 mg/dL 8.4-10.2 code = 697) EGFR (BEAKER) (test code 61 mL/min/1.73 sq m EST IMATED GFR IS NOT = 1092) ACCURATE CREA TININE CLEARANCE IN PRE DICTING GLOMERULAR FILTR ATION RATE. ESTIMATED GFR IS NOT APPLICABLE F OR DIALYSIS PATIENT S. HEPATIC FUNCTION [id number] 04:37:00 Test Item Value Reference Range Comments TOTAL PROTEIN (BEAKER) (test code = 770) 7.7 gm/dL 6.0-8.3 ALBUMIN (BEAKER) (test code = 1145) 3.5 g/dL 3.5-5.0 BILIRUBIN TOTAL (BEAKER) (test code = 377) 0.3 mg/dL 0.2-1 .2 BILIRUBIN DIRECT (BEAKER) (test code = 706) 0.2 mg/dL 0.1- 0.5 ALKALINE PHOSPHATASE (BEAKER) (test code = 346) 72 U/L 40-150 AST (SGOT) (BEAKER) (test code = 353) 16 U/L 5-34 ALT (SGPT) (BEAKER) (test code = 347) 10 U/L 6-55 [id number] 04:33:00 Test Item Value Reference Range Comments PROTIME (BEAKER) (test code = 759) 15.4 seconds 11.9-14.2 INR (BEAKER) (test code = 370) 1.3 <=5.9 PARTIAL THROMBOPLASTIN TIME (BEAKER) (test code 38.0 seconds 22.5-36.0 = 760) Effective 08/17/2018: PT Reference Range ChangeNew: 11.9-14.2 Previous: 11.7- 14.7RECOMMENDED COUMADIN/WARFARIN INR THERAPY RANGESSTANDARD DOSE: 2.0-3.0 Includes: PROPHYLAXIS for venous thrombosis, systemic embolization; TREATMENT for venous thrombosis and/or pulmonary embolus.HIGH RISK: Target INR is2.5-3.5 for patients wiht mechanical heart valves.CBC (HEMOGRAM ONLY)2018-09-04 04:11:00 Test Item Value Reference Range Comments WHITE BLOOD CELL COUNT (BEAKER) (test code = 10.9 K/ L 3.5 -10.5 775) RED BLOOD CELL COUNT (BEAKER) (test code = 761) 3.79 M/ L 3.93-5.22 HEMOGLOBIN (BEAKER) (test code = 410) 10.5 GM/DL 11.2-15.7 HEMATOCRIT (BEAKER) (test code = 411) 34.3 % 34.1-44.9 MEAN CORPUSCULAR VOLUME (BEAKER) (test code = 90.5 fL 79 .4-94.8 753) MEAN CORPUSCULAR HEMOGLOBIN (BEAKER) (test code 27.7 pg 25.6-32.2 = 751) MEAN CORPUSCULAR HEMOGLOBIN CONC (BEAKER) (test 30.6 GM/DL 32.2-35.5 code = 752) RED CELL DISTRIBUTION WIDTH (BEAKER) (test code 12.5 % 11.7-14.4 = 412) PLATELET COUNT (BEAKER) (test code = 756) 322 K/CU MM 150-45 0 MEAN PLATELET VOLUME (BEAKER) (test code = 754) 10.3 fL 9.4-12.3 NUCLEATED RED BLOOD CELLS (BEAKER) (test code = 0 /100 WBC 0-0 413) BLOOD [id number] 00:00:00 Test Item Value Reference Range Comments CULTURE (BEAKER) (test code = 1095) No growth in 5 days BLOOD [id number] 00:00:00 Test Item Value Reference Range Comments CULTURE (BEAKER) (test code = 1095) No growth in 5 days CLOSTRIDIUM DIFFICILE TOXIN [id number] 17:09:00 Test Item Value Reference Range Comments CLOSTRIDIUM DIFFICILE TOXIN, PCR (BEAKER) (test Not Detected Not Detected code = 1525) This qualitative real-time polymerase chain reaction assay detects the tcdB gene, encoded on the C.difficile pathogenicity locus (PaLoc). [...] a positive result is not recommended.BASIC METABOLIC [id number] 10:06:00 Test Item Value Reference Range Comments SODIUM (BEAKER) (test 138 meq/L 136-145 code = 381) POTASSIUM (BEAKER) (test 4.2 meq/L 3.5-5.1 Specime n slightly code = 379) hemolyzed CHLORIDE (BEAKER) (test 104 meq/L 98-107 code = 382) CO2 (BEAKER) (test code = 24 meq/L 22-29 355) BLOOD UREA NITROGEN 26 mg/dL 7-21 (BEAKER) (test code = 354) CREATININE (BEAKER) (test 0.94 mg/dL 0.57-1.25 Specim en slightly code = 358) hemolyzed GLUCOSE RANDOM (BEAKER) 100 mg/dL 70-105 (test code = 652) CALCIUM (BEAKER) (test 8.8 mg/dL 8.4-10.2 code = 697) EGFR (BEAKER) (test code 57 mL/min/1.73 sq m EST IMATED GFR IS NOT = 1092) ACCURATE CREA TININE CLEARANCE IN PRE DICTING GLOMERULAR FILTR ATION RATE. ESTIMATED GFR IS NOT APPLICABLE F OR DIALYSIS PATIENT S. CBC W/PLT COUNT & AUTO [id number] 09:48:00 Test Item Value Reference Range Comments WHITE BLOOD CELL COUNT 12.9 K/ L 3.5-10.5 (BEAKER) (test code = 775) RED BLOOD CELL COUNT (BEAKER) 4.59 M/ L 3.93-5.22 (test code = 761) HEMOGLOBIN (BEAKER) (test 13.4 GM/DL 11.2-15.7 code = 410) HEMATOCRIT (BEAKER) (test 43.1 % 34.1-44.9 code = 411) MEAN CORPUSCULAR VOLUME 93.9 fL 79.4-94.8 (BEAKER) (test code = 753) MEAN CORPUSCULAR HEMOGLOBIN 29.2 pg 25.6-32.2 (BEAKER) (test code = 751) MEAN CORPUSCULAR HEMOGLOBIN 31.1 GM/DL 32.2-35.5 CONC (BEAKER) (test code = 752) RED CELL DISTRIBUTION WIDTH 12.8 % 11.7-14.4 (BEAKER) (test code = 412) PLATELET COUNT (BEAKER) (test 286 K/CU MM 150-450 .D iscordant from previous code = 756) results. Clinica l correlation sugg ested. MEAN PLATELET VOLUME (BEAKER) 10.3 fL 9.4-12.3 (test code = 754) NUCLEATED RED BLOOD CELLS 0 /100 WBC 0-0 (BEAKER) (test code = 413) NEUTROPHILS RELATIVE PERCENT 70 % (BEAKER) (test code = 429) LYMPHOCYTES RELATIVE PERCENT 17 % (BEAKER) (test code = 430) MONOCYTES RELATIVE PERCENT 8 % (BEAKER) (test code = 431) EOSINOPHILS RELATIVE PERCENT 3 % (BEAKER) (test code = 432) BASOPHILS RELATIVE PERCENT 1 % (BEAKER) (test code = 437) NEUTROPHILS ABSOLUTE COUNT 9.04 K/ L 1.56-6.13 (BEAKER) (test code = 670) LYMPHOCYTES ABSOLUTE COUNT 2.22 K/ L 1.18-3.74 (BEAKER) (test code = 414) MONOCYTES ABSOLUTE COUNT 0.99 K/ L 0.24-0.36 (BEAKER) (test code = 415) EOSINOPHILS ABSOLUTE COUNT 0.32 K/ L 0.04-0.36 (BEAKER) (test code = 416) BASOPHILS ABSOLUTE COUNT 0.15 K/ L 0.01-0.08 (BEAKER) (test code = 417) IMMATURE 1 % 0-1 GRANULOCYTES-RELATIVE PERCENT (BEAKER) (test code = 2801) RAD, FOOT, 2 VIEWS, [id number] 16:52:00Reason for exam:->pain with ambulationFINAL REPORT Radiograph [...] identified. Decreased bony mineralization. Osteoarthritis.Signed: Ting Peterson MDReport Verified Date/Time: 01/12/2017 16:52:45 Reading Location: [address] Consult Reading Room T4, [id number] 16:26:00 Test Item Value Reference Range Comments FREE T4 (BEAKER) (test code = 655) 1.12 ng/dL 0.70-1.48 TSH/FREE T4 IF [id number] 15:46:00 Test Item Value Reference Range Comments THYROID STIMULATING HORMONE (BEAKER) (test code 0.03 uIU/mL 0.35-4.94 = 772) BASIC METABOLIC [id number] 15:35:00 Test Item Value Reference Range Comments SODIUM (BEAKER) (test 136 meq/L 136-145 code = 381) POTASSIUM (BEAKER) (test 4.1 meq/L 3.5-5.1 code = 379) CHLORIDE (BEAKER) (test 99 meq/L 98-107 code = 382) CO2 (BEAKER) (test code = 24 meq/L 22-29 355) BLOOD UREA NITROGEN 32 mg/dL 7-21 (BEAKER) (test code = 354) CREATININE (BEAKER) (test 1.12 mg/dL 0.57-1.25 code = 358) GLUCOSE RANDOM (BEAKER) 164 mg/dL 70-105 (test code = 652) CALCIUM (BEAKER) (test 10.2 mg/dL 8.4-10.2 code = 697) EGFR (BEAKER) (test code 46 mL/min/1.73 sq m EST IMATED GFR IS NOT = 1092) ACCURATE CREA TININE CLEARANCE IN PRE DICTING GLOMERULAR FILTR ATION RATE. ESTIMATED GFR IS NOT APPLICABLE F OR DIALYSIS PATIENT S. CBC W/PLT COUNT & AUTO [id number] 15:06:00 Test Item Value Reference Range Comments WHITE BLOOD CELL COUNT (BEAKER) (test code = 17.4 K/ L 3.5 -10.5 775) RED BLOOD CELL COUNT (BEAKER) (test code = 761) 4.93 M/ L 3.93-5.22 HEMOGLOBIN (BEAKER) (test code = 410) 14.0 GM/DL 11.2-15.7 HEMATOCRIT (BEAKER) (test code = 411) 44.8 % 34.1-44.9 MEAN CORPUSCULAR VOLUME (BEAKER) (test code = 90.9 fL 79 .4-94.8 753) MEAN CORPUSCULAR HEMOGLOBIN (BEAKER) (test code 28.4 pg 25.6-32.2 = 751) MEAN CORPUSCULAR HEMOGLOBIN CONC (BEAKER) (test 31.3 GM/DL 32.2-35.5 code = 752) RED CELL DISTRIBUTION WIDTH (BEAKER) (test code 12.9 % 11.7-14.4 = 412) PLATELET COUNT (BEAKER) (test code = 756) 360 K/CU MM 150-45 0 MEAN PLATELET VOLUME (BEAKER) (test code = 754) 10.5 fL 9.4-12.3 NUCLEATED RED BLOOD CELLS (BEAKER) (test code = 0 /100 WBC 0-0 413) NEUTROPHILS RELATIVE PERCENT (BEAKER) (test code 82 % = 429) LYMPHOCYTES RELATIVE PERCENT (BEAKER) (test code 11 % = 430) MONOCYTES RELATIVE PERCENT (BEAKER) (test code = 4 % 431) EOSINOPHILS RELATIVE PERCENT (BEAKER) (test code 0 % = 432) BASOPHILS RELATIVE PERCENT (BEAKER) (test code = 1 % 437) NEUTROPHILS ABSOLUTE COUNT (BEAKER) (test code = 14.33 K/ L 1.56-6.13 670) LYMPHOCYTES ABSOLUTE COUNT (BEAKER) (test code = 1.97 K/ L 1.18-3.74 414) MONOCYTES ABSOLUTE COUNT (BEAKER) (test code = 0.71 K/ L 0 .24-0.36 415) EOSINOPHILS ABSOLUTE COUNT (BEAKER) (test code = 0.05 K/ L 0.04-0.36 416) BASOPHILS ABSOLUTE COUNT (BEAKER) (test code = 0.16 K/ L 0 .01-0.08 417) IMMATURE GRANULOCYTES-RELATIVE PERCENT (BEAKER) 1 % 0-1 (test code = 2801) URINE [id number] 08:21:00 Test Item Value Reference Range Comments CULTURE (BEAKER) (test code = 1095) Amikacin (test code = 1) Ampicillin + Sulbactam (test code = 6) Aztreonam (test code = 32) Cefepime (test code = 51) Cefoxitin (test code = 68) Ceftazidime (test code = 27) Ceftriaxone (test code = 52) Ertapenem (test code = 38) Gentamicin (test code = 18) Levofloxacin (test code = 22) Meropenem (test code = 34) Nitrofurantoin (test code = 23) Piperacillin + Tazobactam (test code = 29) Tetracycline (test code = 2) Tobramycin (test code = 25) Trimethoprim + Sulfamethoxazole (test code = 47) CULTURE (BEAKER) (test code = 1095) >100,000 col/mL Proteus mirabilis <10,000 col/mL skin ranjith<10,000 col/mL gram negative rods of a second typeMR, BRAIN, WITHOUT [id number] 16:03:00Reason for exam:->Ischemic Stroke EvaluationFINAL REPORT MRI [...] hydrocephalus. Nonspecific 8 mm nodule in the ambrocio prasellar cistern, possibly related to the infundibulum. Further evaluation with a dedicated pituitary protocol MRI brain is recommended. 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 Signed: Wang Lunsford MDReport Verified Date/Time: 01/09/2017 16:03:04 Reading Location: [facility] B1 C013V Neuro Reading Room URINALYSIS W/ MICROSCOPIC 2017-01-09 15:35:00 Test Item Value Reference Range Comments COLOR (BEAKER) (test code = 470) Light Yellow CLARITY (BEAKER) (test code = 469) Hazy SPECIFIC GRAVITY UA (BEAKER) (test code = 468) 1.010 1 .001-1.035 PH UA (BEAKER) (test code = 467) 8.0 5.0-8.0 PROTEIN UA (BEAKER) (test code = 464) 20 mg/dL Negative GLUCOSE UA (BEAKER) (test code = 365) Negative Negative KETONES UA (BEAKER) (test code = 371) Negative Negative BILIRUBIN UA (BEAKER) (test code = 462) Negative Negative BLOOD UA (BEAKER) (test code = 461) Negative Negative NITRITE UA (BEAKER) (test code = 465) Negative Negative LEUKOCYTE ESTERASE UA (BEAKER) (test code = Large Nega tive 466) UROBILINOGEN UA (BEAKER) (test code = 463) 0.2 mg/dL 0.2-1 .0 RBC UA (BEAKER) (test code = 519) 2 /HPF WBC UA (BEAKER) (test code = 520) 87 /HPF SQUAMOUS EPITHELIAL (BEAKER) (test code = 516) 3 /HPF SOURCE(BEAKER) (test code = 2795) Urine, Voided URINALYSIS W/ REFLEX URINE [id number] 15:35:00 Test Item Value Reference Range Comments COLOR (BEAKER) (test code = 470) Light Yellow CLARITY (BEAKER) (test code = 469) Hazy SPECIFIC GRAVITY UA (BEAKER) (test code = 468) 1.010 1 .001-1.035 PH UA (BEAKER) (test code = 467) 8.0 5.0-8.0 PROTEIN UA (BEAKER) (test code = 464) 20 mg/dL Negative GLUCOSE UA (BEAKER) (test code = 365) Negative Negative KETONES UA (BEAKER) (test code = 371) Negative Negative BILIRUBIN UA (BEAKER) (test code = 462) Negative Negative BLOOD UA (BEAKER) (test code = 461) Negative Negative NITRITE UA (BEAKER) (test code = 465) Negative Negative LEUKOCYTE ESTERASE UA (BEAKER) (test code = Large Nega tive 466) UROBILINOGEN UA (BEAKER) (test code = 463) 0.2 mg/dL 0.2-1 .0 RBC UA (BEAKER) (test code = 519) 2 /HPF WBC UA (BEAKER) (test code = 520) 87 /HPF SQUAMOUS EPITHELIAL (BEAKER) (test code = 516) 3 /HPF SOURCE(BEAKER) (test code = 2795) Urine, Voided [id number] 14:30:00 Test Item Value Reference Range Comments RPR SCREEN (BEAKER) (test code = 420) Nonreactive Nonreactiv e HEMOGLOBIN [id number] 10:58:00 Test Item Value Reference Range Comments HEMOGLOBIN A1C (BEAKER) (test code = 368) 5.8 % 4.3-6. 1 SEDIMENTATION [id number] 10:44:00 Test Item Value Reference Range Comments SEDIMENTATION RATE, ERYTHROCYTE (BEAKER) (test code 52 mm/HR 0-40 = 766) T4, [id number] 09:16:00 Test Item Value Reference Range Comments FREE T4 (BEAKER) (test code = 655) 0.94 ng/dL 0.70-1.48 TSH/FREE T4 IF [id number] 08:42:00 Test Item Value Reference Range Comments THYROID STIMULATING HORMONE (BEAKER) (test code 0.05 uIU/mL 0.35-4.94 = 772) VITAMIN B12 AND [id number] 08:37:00 Test Item Value Reference Range Comments VITAMIN B12 (BEAKER) (test code = 774) 829 pg/mL 213-816 FOLATE (BEAKER) (test code = 362) 15.9 ng/mL >=7.0 [id number] 08:36:00 Test Item Value Reference Range Comments HOMOCYSTEINE (BEAKER) (test code = 642) 10.2 umol/L 5.1-15.4 LIPID [id number] 08:26:00 Test Item Value Reference Range Comments TRIGLYCERIDES (BEAKER) (test code = 540) 86 mg/dL CHOLESTEROL (BEAKER) (test code = 631) 194 mg/dL HDL CHOLESTEROL (BEAKER) (test code = 976) 66 mg/dL LDL CHOLESTEROL CALCULATED (BEAKER) (test code = 111 mg/dL 633) Triglyceride Reference Range: Low Risk <150 Borderline 150-199 High Risk 200-499 Very High Risk >=500Cholesterol Reference Range: Low Risk <200 Borderline 200-239 High Risk >240HDL Cholesterol Reference Range: Low Risk >=60 High Risk <40LDL Cholesterol Reference Range: Optimal <100 Near Optimal 100-129 Borderline 130-159 High 160-189 Very High >=190 FastingBASIC METABOLIC [id number] 08:26:00 Test Item Value Reference Range Comments SODIUM (BEAKER) (test 136 meq/L 136-145 code = 381) POTASSIUM (BEAKER) (test 4.7 meq/L 3.5-5.1 code = 379) CHLORIDE (BEAKER) (test 99 meq/L 98-107 code = 382) CO2 (BEAKER) (test code = 24 meq/L 22-29 355) BLOOD UREA NITROGEN 27 mg/dL 7-21 (BEAKER) (test code = 354) CREATININE (BEAKER) (test 1.04 mg/dL 0.57-1.25 code = 358) GLUCOSE RANDOM (BEAKER) 133 mg/dL 70-105 (test code = 652) CALCIUM (BEAKER) (test 8.8 mg/dL 8.4-10.2 code = 697) EGFR (BEAKER) (test code 51 mL/min/1.73 sq m EST IMATED GFR IS NOT = 1092) ACCURATE CREA TININE CLEARANCE IN PRE DICTING GLOMERULAR FILTR ATION RATE. ESTIMATED GFR IS NOT APPLICABLE F OR DIALYSIS PATIENT S. FastingHEPATIC FUNCTION [id number] 08:26:00 Test Item Value Reference Range Comments TOTAL PROTEIN (BEAKER) (test code = 770) 6.8 gm/dL 6.0-8.3 ALBUMIN (BEAKER) (test code = 1145) 3.4 g/dL 3.5-5.0 BILIRUBIN TOTAL (BEAKER) (test code = 377) 0.6 mg/dL 0.2-1 .2 BILIRUBIN DIRECT (BEAKER) (test code = 706) 0.2 mg/dL 0.1- 0.5 ALKALINE PHOSPHATASE (BEAKER) (test code = 346) 67 U/L 40-150 AST (SGOT) (BEAKER) (test code = 353) 16 U/L 5-34 ALT (SGPT) (BEAKER) (test code = 347) 11 U/L 6-55 FastingCREATINE KINASE (CK), TOTAL AND [id number] 08:26:00 Test Item Value Reference Range Comments CREATINE KINASE TOTAL (BEAKER) (test code = 380) 30 U/L 29-200 CREATINE KINASE-MB (BEAKER) (test code = 750) 0.8 ng/mL 0. 0-6.6 CREATINE KINASE-MB INDEX (BEAKER) (test code = 2.7 % 395) CK-MB Reference Range:<6.7 Normal6.7-10.0 Borderline>10.0 AbnormalFastingFastingC-REACTIVE [id number] 08:26:00 Test Item Value Reference Range Comments C-REACTIVE PROTEIN (BEAKER) (test code = 676) 1.74 mg/dL 0. 00-0.50 FastingCBC W/PLT COUNT & AUTO [id number] 07:57:00 Test Item Value Reference Range Comments WHITE BLOOD CELL COUNT (BEAKER) (test code = 16.6 K/ L 3.5 -10.5 775) RED BLOOD CELL COUNT (BEAKER) (test code = 761) 4.21 M/ L 3.93-5.22 HEMOGLOBIN (BEAKER) (test code = 410) 12.3 GM/DL 11.2-15.7 HEMATOCRIT (BEAKER) (test code = 411) 38.4 % 34.1-44.9 MEAN CORPUSCULAR VOLUME (BEAKER) (test code = 91.2 fL 79 .4-94.8 753) MEAN CORPUSCULAR HEMOGLOBIN (BEAKER) (test code 29.2 pg 25.6-32.2 = 751) MEAN CORPUSCULAR HEMOGLOBIN CONC (BEAKER) (test 32.0 GM/DL 32.2-35.5 code = 752) RED CELL DISTRIBUTION WIDTH (BEAKER) (test code 12.9 % 11.7-14.4 = 412) PLATELET COUNT (BEAKER) (test code = 756) 296 K/CU MM 150-45 0 MEAN PLATELET VOLUME (BEAKER) (test code = 754) 10.3 fL 9.4-12.3 NUCLEATED RED BLOOD CELLS (BEAKER) (test code = 0 /100 WBC 0-0 413) NEUTROPHILS RELATIVE PERCENT (BEAKER) (test code 78 % = 429) LYMPHOCYTES RELATIVE PERCENT (BEAKER) (test code 15 % = 430) MONOCYTES RELATIVE PERCENT (BEAKER) (test code = 5 % 431) EOSINOPHILS RELATIVE PERCENT (BEAKER) (test code 1 % = 432) BASOPHILS RELATIVE PERCENT (BEAKER) (test code = 1 % 437) NEUTROPHILS ABSOLUTE COUNT (BEAKER) (test code = 12.92 K/ L 1.56-6.13 670) LYMPHOCYTES ABSOLUTE COUNT (BEAKER) (test code = 2.40 K/ L 1.18-3.74 414) MONOCYTES ABSOLUTE COUNT (BEAKER) (test code = 0.90 K/ L 0 .24-0.36 415) EOSINOPHILS ABSOLUTE COUNT (BEAKER) (test code = 0.08 K/ L 0.04-0.36 416) BASOPHILS ABSOLUTE COUNT (BEAKER) (test code = 0.11 K/ L 0 .01-0.08 417) IMMATURE GRANULOCYTES-RELATIVE PERCENT (BEAKER) 1 % 0-1 (test code = 2801) TROPONIN [id number] 07:47:00 Test Item Value Reference Range Comments TROPONIN I (BEAKER) (test code = 397) 0.01 ng/mL 0.00-0.03 Troponin I (TnI) levels [...]
[2019-07-21 14:45] LABS: ALT/SGPT 14 U/L (12-78); AST/SGOT 10 U/L (15-37); Albumin 2.9 g/dL (3.4-5.0); Alkaline Phosphatase 71 U/L (45-117); BUN Blood Urea Nitrogen 21 mg/dL (7-18); Bicarbonate 32 mmol/L (21-32); Glucose Level 166 mg/dL (74-106); Potassium 4.5 mmol/L (3.5-5.1); Protein, Total 7.1 g/dL (6.4-8.2); Sodium Level 139 mmol/L (136-145)
[2019-07-21 14:48] LABS: Bilirubin Total < 0.1 mg/dL (0.2-1.0)
[2019-07-21 14:53] LABS: Absolute Lymphocytes (CBC) 1.2 K/uL (0.7-4.9); Basophils % 0.9 % (0-1.3); Lymphocytes % 10.3 % (15.3-44.8); MPV 8.5 fL (7.6-11.3)
--- NOTE | 2019-07-21 15:11 | RAD REPORT ---
EXAM DESCRIPTION: RAD - Knee Left 3 View - 07/21/2019 3:01 pm CLINICAL HISTORY: PAIN COMPARISON: No comparisons FINDINGS: Soft tissue swelling is seen about the knee. No intraarticular joint effusion. No acute fr acture or dislocation evident.
--- NOTE | 2019-07-21 15:35 | ER ---
Nurse's Notes [facility] Name: Elida Pradhan Age: 83 yrs Sex: Female : 1935 Arrival Date: 07/21/2019 Time: 13:26 Bed 8 Private MD: Diagnosis: Fall due to bumping against object;Contusion of left knee;Anemia, unspecified;Gastrointestinal hemorrhage, unspecified-lower, hemorrhoids, stable;Unspecified kidney failure-chronic insufficency Presentation: 07/20 13:32 Chief complaint: EMS states: SENT FROM [facility] FOR FALL TO KNEES WITH LEFT KNEE bp PAIN AND HEMORRHOIDS. Coronavirus screen: Proceed with normal triage. Ebola Screen: No symptoms or risks identified at this time. Initial Sepsis Screen: Does the patient meet any 2 criteria? No. Patient's initial sepsis screen is negative. Does the patient have a suspected source of infection? No. Patient's initial sepsis screen is negative. Risk Assessment: Do you want to hurt yourself or someone else? Patient reports no desire to harm self or others. Onset of symptoms is unknown. 13:32 Method Of Arrival: EMS: [facility] bp 13:32 Acuity: TALYA 4 bp Triage Assessment: 13:34 General: Appears in no apparent distress. comfortable, Behavior is calm, cooperative, bp appropriate for age. Pain: Complains of pain in left knee. EENT: No deficits noted. Neuro: No deficits noted. Cardiovascular: No deficits noted. Respiratory: No deficits noted. GI: No signs and/or symptoms were reported involving the gastrointestinal system. : No signs and/or symptoms were reported regarding the genitourinary system. Derm: No deficits noted. Musculoskeletal: No deficits noted. Historical: - Allergies: 13:34 Levaquin; bp 13:34 Cipro; bp - PMHx: 13:34 Anxiety; CHF; COPD; Dementia; Depression; DYSPHAGIA; GI Bleed; Hypertension; Myocardial bp infarction; - Immunization history:: Adult Immunizations up to date. - Social history:: Smoking status: Patient denies any tobacco usage or history of. - Family history:: not pertinent. Screenin:36 Abuse screen: Denies threats or abuse. Denies injuries from another. Nutritional bp screening: No deficits noted. Tuberculosis screening: No symptoms or risk factors identified. Fall Risk Fall in past 12 months (25 points). No secondary diagnosis (0 pts). No IV (0 pts). Ambulatory Aid- Crutches/Cane/Walker (15 pts). Gait- Normal/Bed Rest/Wheelchair (0 pts) Mental Status- Oriented to own ability (0 pts). Total Howell Fall Scale indicates Low Risk Score (25-44 pts). Fall prevention measures have been instituted. Side Rails Up X 2 Placed close to Nursing Station 1:1 attendant Assigned to Pt. Frequent Obs/Assesments occuring As available Patient and Family Educated on Fall Prevention Program and strategies. Assessment: 13:36 General: SEE TRIAGE NOTE. bp 14:43 Reassessment: XRAY AT B/S. bp 15:59 Reassessment: D/C ON HOLD FOR [facility] TRANSPORT. bp 16:49 Reassessment: REPORT TO [facility] RN, TRANSPORT PENDING. bp 17:10 Reassessment: PT D/C VIA W/C TO FAMILY FOR TRANSPORT. bp Vital Signs: 13:32 BP 124 / 84; bp 13:34 BP 107 / 47; Pulse 77; Resp 17; Pulse Ox 99% on 2 lpm NC; bp 14:18 BP 106 / 30; Pulse 75; Resp 16; Pulse Ox 97% ; bp 14:23 BP 120 / 59 LA Supine; Pulse 76; Resp 16; Pulse Ox 98% on 2 lpm NC; dh3 14:25 BP 115 / 65 LA Sitting; Pulse 86; Resp 18; Pulse Ox 98% on 2 lpm NC; dh3 14:27 BP 115 / 65 LA Standing; Pulse 85; Resp 18; Pulse Ox 98% on 2 lpm NC; dh3 15:59 BP 160 / 73; Pulse 78; Resp 16; Pulse Ox 97% ; bp ED Course: 13:26 Patient arrived in ED. cp 13:31 Donato Martinez MD is Attending Physician. seth 13:31 Ubaldo Delgadillo, RN is Primary Nurse. bp 13:32 Triage completed. bp 13:34 Arm band placed on. bp 13:36 Patient has correct armband on for positive identification. Bed in low position. Call bp light in reach. Side rails up X2. 14:15 Inserted saline lock: 20 gauge in right antecubital area, using aseptic technique. bp Blood collected. 15:02 Knee Left 3 View XRAY In Process Unspecified. EDMS 15:34 Nida, Shawn, MD is Referral Physician. [facility] 15:34 Yin Feliciano MD is Referral Physician. seth 17:10 No provider procedures requiring assistance completed. IV discontinued, intact, bp bleeding controlled, No redness/swelling at site. Pressure dressing applied. Administered Medications: No medications were administered Point of Care Testing: Guaiac: 15:36 Stool Guaiac: Positive; Stool Hemoccult Control: Pass; seth Outcome: 15:34 Discharge ordered by . [facility] 17:10 Discharged to senior living. Report called to [facility] bp 17:10 Condition: stable 17:10 Discharge instructions given to patient, Instructed on discharge instructions, follow up and referral plans. Demonstrated understanding of instructions, follow-up care. 17:11 Patient left the ED. bp Signatures: Dispatcher [employer] EDDonato Stafford MD MD cha Page, Corey, PA [place] [id number] Ubaldo Delgadillo, RN RN bp
--- NOTE | 2019-07-21 15:36 | EDPHYS ---
Physician Documentation [facility] Name: Elida Pradhan Age: 83 yrs Sex: Female : 1935 Arrival Date: 07/21/2019 Time: 13:26 Bed 8 Private MD: LIZETT Physician Donato Martinez HPI: 07/20 14:02 This 83 yrs old Female presents to ER via EMS with complaints of Rectal seth Bleeding. 14:02 The patient presents to the emergency department with bleeding from the rectum/anus, seth that is mild. Onset: The symptoms/episode began/occurred just prior to arrival. Context: the patient hx of small blood per rectum. Modifying factors: The symptoms are alleviated by. 14:03 The patient presents with decreased range of motion, pain, that is acute. The seth complaints affect the left knee. Context: The problem was sustained at a [facility] or assisted [facility] facility, resulted from the patient falling, a mis-step, the patient can fully bear weight, the patient is able to ambulate. Modifying factors: The symptoms are alleviated by elevating leg, remaining still, the symptoms are aggravated by movement, weight bearing, bending knee. Associate signs and symptoms: The patient has no apparent associated signs or symptoms. Severity of symptoms: At their worst the symptoms were mild. The patient has experienced similar episodes in the past, a few times. Historical: - Allergies: 13:34 Levaquin; bp 13:34 Cipro; bp - PMHx: 13:34 Anxiety; CHF; COPD; Dementia; Depression; DYSPHAGIA; GI Bleed; Hypertension; Myocardial bp infarction; - Immunization history:: Adult Immunizations up to date. - Social history:: Smoking status: Patient denies any tobacco usage or history of. - Family history:: not pertinent. ROS: 14:03 Constitutional: Negative for fever, chills, and weight loss, Eyes: Negative for injury, seth pain, redness, and discharge, ENT: Negative for injury, pain, and discharge, Neck: Negative for injury, pain, and swelling, Cardiovascular: Negative for chest pain, palpitations, and edema, Respiratory: Negative for shortness of breath, cough, wheezing, and pleuritic chest pain, Back: Negative for injury and pain, : Negative for injury, bleeding, discharge, and swelling, Skin: Negative for injury, rash, and discoloration, Neuro: Negative for headache, weakness, numbness, tingling, and seizure, Psych: Negative for depression, anxiety, suicide ideation, homicidal ideation, and hallucinations, Allergy/Immunology: Negative for hives, rash, and allergies, Endocrine: Negative for neck swelling, polydipsia, polyuria, polyphagia, and marked weight changes, Hematologic/Lymphatic: Negative for swollen nodes, abnormal bleeding, and unusual bruising. 14:03 Abdomen/GI: Positive for rectal bleeding. 14:03 MS/extremity: Positive for decreased range of motion, ecchymosis, pain, of the left knee. Exam: 14:03 Constitutional: This is a well developed, well nourished patient who is awake, alert, seth and in no acute distress. Head/Face: Normocephalic, atraumatic. Eyes: Pupils equal round and reactive to light, extra-ocular motions intact. Lids and lashes normal. Conjunctiva and sclera are non-icteric and not injected. Cornea within normal limits. Periorbital areas with no swelling, redness, or edema. ENT: Nares patent. No nasal discharge, no septal abnormalities noted. Tympanic membranes are normal and external auditory canals are clear. Oropharynx with no redness, swelling, or masses, exudates, or evidence of obstruction, uvula midline. Mucous membranes moist. Neck: Trachea midline, no thyromegaly or masses palpated, and no cervical lymphadenopathy. Supple, full range of motion without nuchal rigidity, or vertebral point tenderness. No Meningismus. Chest/axilla: Normal chest wall appearance and motion. Nontender with no deformity. No lesions are appreciated. Cardiovascular: Regular rate and rhythm with a normal S1 and S2. No gallops, murmurs, or rubs. Normal PMI, no JVD. No pulse deficits. Respiratory: Lungs have equal breath sounds bilaterally, clear to auscultation and percussion. No rales, rhonchi or wheezes noted. No increased work of breathing, no retractions or nasal flaring. Abdomen/GI: Soft, non-tender, with normal bowel sounds. No distension or tympany. No guarding or rebound. No evidence of tenderness throughout. Back: No spinal tenderness. No costovertebral tenderness. Full range of motion. Skin: Warm, dry with normal turgor. Normal color with no rashes, no lesions, and no evidence of cellulitis. Neuro: Awake and alert, GCS 15, oriented to person, place, time, and situation. Cranial nerves II-XII grossly intact. Motor strength 5/5 in all extremities. Sensory grossly intact. Cerebellar exam normal. Normal gait. Psych: Awake, alert, with orientation to person, place and time. Behavior, mood, and affect are within normal limits. 14:03 Musculoskeletal/extremity: Extremities: decreased ROM, ecchymosis, pain, ROM: full active range of motion, full passive range of motion, Circulation is intact in all extremities. Sensation intact. Compartment Syndrome exam of affected extremity: is normal. Weight bearing: able to fully bear weight, DVT Exam: negative Homans' sign noted on exam, no appreciated bluish discoloration, pain, swelling, tenderness. 14:08 Abdomen/GI: Inspection: abdomen appears normal, distension, Bowel sounds: normal, [facility] Palpation: abdomen is soft and non-tender, Rectal exam: rectal tone normal, Stool: guaiac positive, trace. Vital Signs: 13:32 BP 124 / 84; bp 13:34 BP 107 / 47; Pulse 77; Resp 17; Pulse Ox 99% on 2 lpm NC; bp 14:18 BP 106 / 30; Pulse 75; Resp 16; Pulse Ox 97% ; bp 14:23 BP 120 / 59 LA Supine; Pulse 76; Resp 16; Pulse Ox 98% on 2 lpm NC; dh3 14:25 BP 115 / 65 LA Sitting; Pulse 86; Resp 18; Pulse Ox 98% on 2 lpm NC; dh3 14:27 BP 115 / 65 LA Standing; Pulse 85; Resp 18; Pulse Ox 98% on 2 lpm NC; dh3 15:59 BP 160 / 73; Pulse 78; Resp 16; Pulse Ox 97% ; bp MDM: 13:31 Patient medically screened. [facility] 14:07 Data reviewed: vital signs, nurses notes, lab test result(s). [facility] 14:09 Differential diagnosis: closed fracture, hemorrhoids, fissure. 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 Test interpretation: by ED physician or midlevel provider:. 14:10 Counseling: I had a detailed discussion with the patient and/or guardian regarding: the [facility] historical points, exam findings, and any diagnostic results supporting the discharge/admit diagnosis, lab results, radiology results. 15:30 ED course: rectal trace positive hgb same as last visit, minimal blood on tissue, no seth abd pain, x ray left knee no fx, stable, neg shen. 15:37 ED course: fu gi and nephrology, fall precautions given, pt understands and will follow seth up. 07/20 14:02 Order name: CBC with Diff; Complete Time: 15:29 [facility] 07/20 14:02 Order name: Comprehensive Metabolic Panel; Complete Time: 15:29 [facility] 07/20 14:02 Order name: Knee Left 3 View XRAY; Complete Time: 15:29 [facility] 07/20 14:02 Order name: IV - Large Bore; Complete Time: 14:18 [facility] 07/20 14:02 Order name: Orthostatics; Complete Time: 14:35 [facility] Administered Medications: No medications were administered Point of Care Testing: Guaiac: 15:36 Stool Guaiac: Positive; Stool Hemoccult Control: Pass; [facility] Disposition: 07/21/19 15:34 Discharged to Home. Impression: Fall due to bumping against object, Contusion of left knee, Anemia, unspecified, Gastrointestinal hemorrhage, unspecified - lower, hemorrhoids, stable, Unspecified kidney failure - chronic insufficency. - Condition is Stable. - Discharge Instructions: Anemia, Nonspecific, Gastrointestinal Bleeding, Knee Sprain, Rectal Bleeding, Knee Pain, Fall Prevention in the Home, [id number], Knee Sprain, Gwnn-ko-Xcfv, Chronic Kidney Disease, Adult, Czbs-dv-[id number], Gastrointestinal Bleeding, Lmmq-ku-Ezff, Knee Pain, Fewa-gp-Fgfb, Rectal Bleeding, Haqb-um-Ateg. - Medication Reconciliation Form, Thank You Letter, Antibiotic Education, Prescription Opioid Use form. - Follow up: Private Physician; When: 2 - 3 days; Reason: Recheck today's complaints, Continuance of care, Re-evaluation by your physician. Follow up: Shawn Alva MD; When: 2 - 3 days; Reason: Recheck today's complaints, Re-evaluation by your physician. Follow up: Yin Feliciano MD; When: 2 - 3 days; Reason: Recheck today's complaints, Re-evaluation by your physician. - Problem is new. - Symptoms have improved. Signatures: Dispatcher [employer] EDDonato Stafford MD MD cha Peltier, Brian, RN RN bp Corrections: (The following items were deleted from the chart) 17:11 15:34 07/21/2019 15:34 Discharged to Home. Impression: Fall due to bumping against bp object; Contusion of left knee; Anemia, unspecified; Gastrointestinal hemorrhage, unspecified - lower, hemorrhoids, stable; Unspecified kidney failure - chronic insufficency. Condition is Stable. Forms are Medication Reconciliation Form, Thank You Letter, Antibiotic Education, Prescription Opioid Use. Follow up: Private Physician; When: 2 - 3 days; Reason: Recheck today's complaints, Continuance of care, Re-evaluation by your physician. Follow up: Shawn Alva; When: 2 - 3 days; Reason: Recheck today's complaints, Re-evaluation by your physician. Follow up: Yin Feliciano; When: 2 - 3 days; Reason: Recheck today's complaints, Re-evaluation by your physician. Problem is new. Symptoms have improved. seth
[2019-07-21 17:25] VITALS: BP 160/73; O2SAT 97
== END 2019-07-21 17:11 | disposition home or self-care (01) ==
LOC: ER 13:22
DX: K64.9 Unspecified hemorrhoids (principal); S80.02XA Contusion of left knee, initial encounter; D64.9 Anemia, unspecified; I12.9 Hypertensive chronic kidney disease with stage 1 through stage 4 chronic kidney disease, or unspecified chronic kidney disease; N18.9 Chronic kidney disease, unspecified; F03.90 Unspecified dementia, unspecified severity, without behavioral disturbance, psychotic disturbance, mood disturbance, and anxiety; W18.00XA Striking against unspecified object with subsequent fall, initial encounter; Y93.9 Activity, unspecified; Y92.129 Unspecified place in nursing home as the place of occurrence of the external cause; Z88.1 Allergy status to other antibiotic agents
CPT/HCPCS: 36415; 80053; 85025; 99284

== ENCOUNTER 2019-08-29 13:32 | Inpatient (IN) | payer OTHER ==
[2019-08-29 14:25] LABS: Potassium 4.1 mmol/L (3.5-5.1)
[2019-08-29 14:30] LABS: Absolute Lymphocytes (CBC) 1.5 K/uL (0.7-4.9); Basophils % 0.7 % (0-1.3); Lymphocytes % 12.7 % (15.3-44.8); MPV 8.6 fL (7.6-11.3); RBC Red Blood Cell Count 2.13 M/uL (3.86-4.86)
[2019-08-29 14:42] LABS: Hematocrit 20.1 % (36.0-45.0)
--- NOTE | 2019-08-29 16:59 | ER ---
Nurse's Notes [facility] Name: Elida Pradhan Age: 83 yrs Sex: Female : 1935 Arrival Date: 08/29/2019 Time: 13:34 Bed 2 Private MD: Diagnosis: Anemia, unspecified;GI Bleed Presentation: 08/28 13:34 Chief complaint: EMS states: SENT FROM [facility] FOR ANEMIA, HGB 6.6. Coronavirus bp screen: Proceed with normal triage. Ebola Screen: No symptoms or risks identified at this time. Initial Sepsis Screen: Does the patient meet any 2 criteria? No. Patient's initial sepsis screen is negative. Does the patient have a suspected source of infection? No. Patient's initial sepsis screen is negative. Risk Assessment: Do you want to hurt yourself or someone else? Patient reports no desire to harm self or others. Onset of symptoms is unknown. 13:34 Method Of Arrival: EMS: [facility] bp 13:34 Acuity: TALYA 3 bp Triage Assessment: 13:39 General: Appears in no apparent distress. comfortable, obese, PALE. Behavior is calm, bp cooperative, appropriate for age. Pain: Denies pain. EENT: No deficits noted. Neuro: Level of Consciousness is awake, alert, obeys commands, Oriented to person, place, time, situation, Appropriate for age. Cardiovascular: No deficits noted. Respiratory: No deficits noted. GI: No signs and/or symptoms were reported involving the gastrointestinal system. : No signs and/or symptoms were reported regarding the genitourinary system. Derm: No deficits noted. Musculoskeletal: No deficits noted. Historical: - Allergies: 13:39 Cipro; bp 13:39 Levaquin; bp - Home Meds: 13:39 acetaminophen-codeine 300-30 mg Oral tab 1 tab every 4 hours [Active]; apixaban 2.5 mg bp Oral 1 tab 2 times per day [Active]; diazepam 5 mg Oral tab 1 tab 2 times per day [Active]; furosemide 40 mg Oral tab [Active]; methimazole 10 mg Oral tab 1 tab once daily [Active]; metoprolol tartrate 50 mg Oral tab 1 tab 2 times per day [Active]; potassium chloride 20 mEq Oral TbER [Active]; prednisone 5 mg Oral tab once daily [Active]; venlafaxine 75 mg Oral cp24 1 cap once daily [Active]; Xopenex 1.25 mg/3 mL Inhl nebu 3 mL twice a day [Active]; - PMHx: 13:39 Anxiety; CHF; COPD; Dementia; Depression; DYSPHAGIA; GI Bleed; Hypertension; Myocardial bp infarction; - Immunization history:: Adult Immunizations up to date. - Social history:: Smoking status: Patient denies any tobacco usage or history of. Screenin:40 Abuse screen: Denies threats or abuse. Denies injuries from another. Nutritional bp screening: No deficits noted. Tuberculosis screening: No symptoms or risk factors identified. Fall Risk None identified. Assessment: 13:40 General: SEE TRIAGE NOTE. bp 15:00 Reassessment: PT RESTING QUIETLY, VS STABLE ON MONITOR. RESULTS PENDING. bp 16:00 Reassessment: TRANSFUSION PENDING. PT REMAINS AOx3, VS STABLE. bp 17:08 Reassessment: TRANSFUSION CONSENT SIGNED AND WITNESSED. ANTIBODY SCREEN TO BLOOD BANK bp FOR CROSSMATCH. 17:28 Reassessment: ADMIT INITIATED. PT RESTING, VS STABLE. bp 18:29 Reassessment: FIRST UNIT PRBC REQUESTED. PT VS STABLE ON MONITOR. bp 19:00 General: Appears in no apparent distress. Behavior is appropriate for age. Pain: Denies ea pain. Neuro: Level of Consciousness is awake, alert, obeys commands, Oriented to person, place, time. Respiratory: Airway is patent Respiratory effort is even, unlabored, Respiratory pattern is regular, symmetrical. Derm: Skin is dry, Skin is pale, Skin temperature is warm. 20:09 Reassessment: Patient and/or family updated on plan of care and expected duration. Pain ea level reassessed. Patient is alert, oriented x 3, equal unlabored respirations, skin warm/dry/pink. Report called to Isabel CAPUTO on ICU. 20:15 Reassessment: Patient and/or family updated on plan of care and expected duration. Pain ea level reassessed. Patient is alert, oriented x 3, equal unlabored respirations, skin warm/dry/pink. Pt admitted to ICU 3, left ED via stretcher per ED nurse, with O2 at 2 L per nasal cannula, pt currently being transfused, tolerating well. Vital Signs: 13:34 BP 151 / 88; Pulse 75; Resp 18; Temp 97.9; Pulse Ox 100% 3 lpm ; bp 14:18 BP 110 / 45; Pulse 88; Resp 16; Pulse Ox 100% ; bp 14:45 BP 111 / 58; Pulse 85; Resp 17; Pulse Ox 99% ; jl7 15:30 BP 113 / 63; Pulse 81; Resp 16; Pulse Ox 99% ; bp 16:30 BP 120 / 58; Pulse 80; Resp 17; Pulse Ox 100% ; bp 17:28 BP 123 / 56; Pulse 88; Resp 16; Pulse Ox 100% ; bp ED Course: 13:34 Patient arrived in ED. bp 13:37 Triage completed. bp 13:38 Geovani Medel MD is Attending Physician. kdr 13:39 Arm band placed on. bp 13:40 Patient has correct armband on for positive identification. Bed in low position. Call bp light in reach. Side rails up X2. 13:46 Ubaldo Delgadillo, RN is Primary Nurse. bp 14:00 Inserted saline lock: 22 gauge in right wrist, using aseptic technique. Blood collected.bp 16:58 Jamal Liu MD is Hospitalizing Provider. kdr 19:57 No provider procedures requiring assistance completed. Patient admitted, IV remains in ea place. Administered Medications: No medications were administered Outcome: 16:59 Decision to Hospitalize by Provider. kdr 19:57 Instructed on the need for admit, Demonstrated understanding of instructions. ea 20:26 Patient left the ED. mg2 20:30 Admitted to ICU accompanied by nurse, via stretcher, room 3, with oxygen, on monitor, ea with chart, Report called to Isabel CAPUTO 20:30 Condition: stable Signatures: Geovani Medel MD MD kdr Evangelist Ch RN RN [id number] Kinza Baltazar, RN RN ea Ubaldo Delgadillo, RN RN Malcom Bradley, RN RN mg2
--- NOTE | 2019-08-29 16:59 | EDPHYS ---
Physician Documentation [facility] Name: Elida Pradhan Age: 83 yrs Sex: Female : 1935 Arrival Date: 08/29/2019 Time: 13:34 Bed 2 Private MD: ED Physician Geovani Medel HPI: 08/28 18:48 This 83 yrs old Female presents to ER via EMS with complaints of Abnormal Lab kdr Results - HgB 6.2 sent from [facility]. 18:48 The patient had a recent blood draw and she was noted to have a Hgb of about 6. Her kdr last transfusion was about five months ago. She has felt slightly tired recently but otherwise has not had any significant s/s.. Onset: The symptoms/episode began/occurred gradually. Severity of symptoms: At their worst the symptoms were very mild in the emergency department the symptoms are unchanged. The patient has experienced similar episodes in the past, a few times. The patient has been recently seen by a physician: the patient's primary care provider. Historical: - Allergies: 13:39 Cipro; bp 13:39 Levaquin; bp - Home Meds: 13:39 acetaminophen-codeine 300-30 mg Oral tab 1 tab every 4 hours [Active]; apixaban 2.5 mg bp Oral 1 tab 2 times per day [Active]; diazepam 5 mg Oral tab 1 tab 2 times per day [Active]; furosemide 40 mg Oral tab [Active]; methimazole 10 mg Oral tab 1 tab once daily [Active]; metoprolol tartrate 50 mg Oral tab 1 tab 2 times per day [Active]; potassium chloride 20 mEq Oral TbER [Active]; prednisone 5 mg Oral tab once daily [Active]; venlafaxine 75 mg Oral cp24 1 cap once daily [Active]; Xopenex 1.25 mg/3 mL Inhl nebu 3 mL twice a day [Active]; - PMHx: 13:39 Anxiety; CHF; COPD; Dementia; Depression; DYSPHAGIA; GI Bleed; Hypertension; Myocardial bp infarction; - Immunization history:: Adult Immunizations up to date. - Social history:: Smoking status: Patient denies any tobacco usage or history of. ROS: 18:48 Constitutional: Negative for fever, chills, and weight loss, Eyes: Negative for injury, kdr pain, redness, and discharge, Neck: Negative for injury, pain, and swelling, Cardiovascular: Negative for chest pain, palpitations, and edema, Respiratory: Negative for shortness of breath, cough, wheezing, and pleuritic chest pain, Back: Negative for injury and pain, : Negative for injury, bleeding, discharge, and swelling, MS/Extremity: Negative for injury and deformity, Skin: Negative for injury, rash, and discoloration, Neuro: Negative for headache, weakness, numbness, tingling, and seizure activity. Psych: Negative for depression, anxiety, suicide ideation, homicidal ideation, and hallucinations, Allergy/Immunology: Negative for hives, rash, and allergies, Endocrine: Negative for neck swelling, polydipsia, polyuria, polyphagia, and marked weight changes, Hematologic/Lymphatic: Negative for swollen nodes, abnormal bleeding, and unusual bruising. 18:48 Abdomen/GI: Positive for Negative for abdominal pain, nausea, vomiting, and diarrhea, constipation, abdominal cramps, abdominal distension, black/tarry stool, rectal pain, rectal bleeding. Exam: 18:48 Constitutional: This is a well developed, well nourished patient who is awake, alert, kdr and in no acute distress. Head/Face: Normocephalic, atraumatic. Eyes: Pupils equal round and reactive to light, extra-ocular motions intact. Lids and lashes normal. Conjunctiva and sclera are non-icteric and not injected. Cornea within normal limits. Periorbital areas with no swelling, redness, or edema. Neck: Trachea midline, no thyromegaly or masses palpated, and no cervical lymphadenopathy. Supple, full range of motion without nuchal rigidity, or vertebral point tenderness. No Meningismus. Chest/axilla: Normal chest wall appearance and motion. Nontender with no deformity. No lesions are appreciated. Cardiovascular: Regular rate and rhythm with a normal S1 and S2. No gallops, murmurs, or rubs. Normal PMI, no JVD. No pulse deficits. Respiratory: Lungs have equal breath sounds bilaterally, clear to auscultation and percussion. No rales, rhonchi or wheezes noted. No increased work of breathing, no retractions or nasal flaring. Back: No spinal tenderness. No costovertebral tenderness. Full range of motion. Skin: Warm, dry with normal turgor. Normal color with no rashes, no lesions, and no evidence of cellulitis. MS/ Extremity: Pulses equal, no cyanosis. Neurovascular intact. Full, normal range of motion. Neuro: Awake and alert, GCS 15, oriented to person, place, time, and situation. Cranial nerves II-XII grossly intact. Motor strength 5/5 in all extremities. Sensory grossly intact. Cerebellar exam normal. Normal gait. Psych: Awake, alert, with orientation to person, place and time. Behavior, mood, and affect are within normal limits. 18:51 Abdomen/GI: Inspection: obese Bowel sounds: active, all quadrants, Palpation: soft, kdr nontender, Rectal exam: the exam is deferred, was already done by PCP or specialist, Non-chronic GI bleed. Vital Signs: 13:34 BP 151 / 88; Pulse 75; Resp 18; Temp 97.9; Pulse Ox 100% 3 lpm ; bp 14:18 BP 110 / 45; Pulse 88; Resp 16; Pulse Ox 100% ; bp 14:45 BP 111 / 58; Pulse 85; Resp 17; Pulse Ox 99% ; jl7 15:30 BP 113 / 63; Pulse 81; Resp 16; Pulse Ox 99% ; bp 16:30 BP 120 / 58; Pulse 80; Resp 17; Pulse Ox 100% ; bp 17:28 BP 123 / 56; Pulse 88; Resp 16; Pulse Ox 100% ; bp MDM: 16:59 Patient medically screened. kdr 18:52 Data reviewed: vital signs, nurses notes, lab test result(s). Counseling: I had a kdr detailed discussion with the patient and/or guardian regarding: the historical points, exam findings, and any diagnostic results supporting the discharge/admit diagnosis, lab results, the need for further work-up and treatment in the hospital. 08/28 13:39 Order name: CBC with Diff; Complete Time: 16:52 kdr 08/28 13:39 Order name: Chem 7; Complete Time: 16:52 kdr 08/28 13:39 Order name: Type And Screen [facility] 08/28 17:05 Order name: Packed RBC Leukored [facility] 08/28 18:41 Order name: Packed RBC Leukored [facility] 08/28 18:41 Order name: Hematocrit [facility] 08/28 18:41 Order name: Hemoglobin [facility] 08/28 18:41 Order name: Urinalysis ED[facility] 08/28 18:41 Order name: CBC with Automated Diff EDMS 08/28 18:41 Order name: CBC with Automated Diff EDMS 08/28 18:41 Order name: Comprehensive Metabolic Panel EDMS 08/28 18:32 Order name: Social Service Consult EDMS 08/28 18:41 Order name: CONS Pharmacy Consult EDMS 08/28 18:41 Order name: CONS Pharmacy Consult EDMS 08/28 18:41 Order name: CONS Physician Consult EDMS 08/28 18:41 Order name: CONS Physician Consult EDMS 08/28 18:41 Order name: Full Liquid EDMS 08/28 18:41 Order name: EKG Electrocardiogram EDMS 08/28 18:41 Order name: EKG Electrocardiogram EDMS 08/28 18:41 Order name: Comprehensive Metabolic Panel EDMS 08/28 18:41 Order name: Hemoglobin EDMS 08/28 18:41 Order name: Hemoglobin EDMS 08/28 18:41 Order name: Hemoglobin EDMS 08/28 18:41 Order name: Hemoglobin EDMS 08/28 18:44 Order name: ABO/RH typing EDMS 08/28 18:44 Order name: Antibody Screen EDMS 08/28 18:44 Order name: CORONAVIRUS EDMS 08/28 18:41 Order name: EKG Electrocardiogram EDMS 08/28 18:41 Order name: EKG Electrocardiogram EDMS 08/28 18:41 Order name: EKG Electrocardiogram EDMS 08/28 18:41 Order name: EKG Electrocardiogram EDMS 08/28 18:41 Order name: EKG Electrocardiogram EDMS 08/28 18:41 Order name: EKG Electrocardiogram EDMS 08/28 18:41 Order name: EKG Electrocardiogram EDMS 08/28 18:41 Order name: EKG Electrocardiogram EDMS 08/28 18:41 Order name: EKG Electrocardiogram EDMS Administered Medications: No medications were administered Disposition: 08/29/19 16:59 Hospitalization ordered by Jamal Liu for Inpatient Admission. Preliminary diagnosis are Anemia, unspecified, GI Bleed. - Bed requested for Intensive Care Unit. - Status is Inpatient Admission. mg2 - Condition is Fair. - Problem is new. - Symptoms are unchanged. Signatures: Dispatcher [employer] EDRI Geovani Medel MD MD kdr Lasagna, Tonya, RN RN tl1 Ubaldo Delgadillo RN RN bp Malcom Forbes, RN RN mg2 Corrections: (The following items were deleted from the chart) 17:04 16:53 PACKED RBC LEUKORED -1+BB.LAB.BRZ ordered. [facility] EDRI 17:04 16:53 ABO/RH typing ordered. [facility] EDRI 17:04 16:53 Antibody Screen ordered. [facility] EDRI 19:35 16:59 Hospitalization Ordered by Jamal Liu MD for Observation. Preliminary tl1 diagnosis is Anemia, unspecified; GI Bleed. Bed requested for Telemetry/MedSurg (observation). Status is Observation. Condition is Fair. Problem is new. Symptoms are unchanged. kdr 20:26 19:35 08/29/2019 16:59 Hospitalization Ordered by Jamal Liu MD for Inpatient mg2 Admission. Preliminary diagnosis is Anemia, unspecified; GI Bleed. Bed requested for Intensive Care Unit. Status is Inpatient Admission. Condition is Fair. Problem is new. Symptoms are unchanged. tl1
--- NOTE | 2019-08-29 18:27 | P.HP ---
Certification for Inpatient Patient admitted to: Inpatient With expected LOS: >2 Midnights Patient will require the following post-hospital care: Other (snf) Practitioner: I am a practitioner with admitting privileges, knowledge of patient current condition, hospital course, and medical plan of care. Services: Services provided to patient in accordance with Admission requirements found in Title 42 Section 412.3 of the Code of Federal Regulations Patient History Date of Service: 08/29/19 Reason for admission: Rectal bleeding History of Present Illness: 83-year-old female with history of HTN, COPD on chronic oxygen as steroids, CAD, depression, dementia, history of atrial fibrillation on chronic anticoagulation with Eliquis, recurrent lower GI bleed status post colonoscopy at [facility] 6 months ago with patient report of no significant findings except for hemorrhoids, she had blood transfusion then. She received another unit of blood transfusion 3 months ago. She presented this time because of recurrent of rectal bleed. Bleeding mixed with stool but later also leaks and stain diapers . She denies any abdominal trauma. She denies any nausea or abdominal pain or cramps. She states she has had tele conference evaluation with Dr. dent and was scheduled for a repeat evaluation in 1 week. She is refusing possibility of colonoscopy at this time. She denies any hematemesis or vomiting. On presentation in the ED she was noted with hemoglobin of 6.2. She has been admitted for anemia and lower GI bleed Allergies ciprofloxacin Adverse Reaction (Verified 12/08/18 05:44) Rash; diarrhea levofloxacin [From Levaquin] Adverse Reaction (Verified 12/08/18 05:44) Rash; diarrhea Home medications list reviewed: Yes Home Medications: Mirtazapine [Remeron*] 15 mg PO BEDTIME 03/17/18 Acetaminophen [Tylenol*] 1 supp VA Q6H PRN 12/08/18 Acetaminophen [Tylenol] 2 tab PO Q6H PRN 12/08/18 Acetaminophen with Codeine [Tylenol with Codeine #3 Tablet] 1 tab PO Q4H PRN 12/08/18 Albuterol Neb [Proventil 0.083% Neb Soln] 3 ml IH BID 12/08/18 Albuterol Sulfate [Proair Hfa] 2 puff IH Q6H PRN 12/08/18 Apixaban [Eliquis *] 1 tab PO BID 12/08/18 Diazepam [Valium] 1 tab PO Q12H PRN 12/08/18 Enema, Fleet Adult [Fleet Enema Adult*] 1 godfrey VA DAILY PRN 12/08/18 Ipratropium [place] 1 godfrey IH Q6H PRN 12/08/18 Loperamide HCl [Loperamide] 1 cap PO Q4H PRN 12/08/18 Loratadine 10 mg PO DAILY 12/08/18 Mag Hydrox/Aluminum Hyd/Simeth [Kristin-Lanta Liquid] 30 ml PO Q4H PRN 12/08/18 Mag Hydroxide 8% [Milk Of Magnesia*] 30 ml PO DAILY PRN 12/08/18 Metoprolol Tartrate [Lopressor*] 1 tab PO BID 12/08/18 Phenol [Chloraseptic] 2 spray PO Q4H PRN 12/08/18 Sodium Chloride [Saline Nose Aurora] 2 spray IH SEECOM PRN 12/08/18 Venlafaxine HCl [Venlafaxine HCl ER] 75 mg PO DAILY 12/08/18 guaiFENesin [Kristin-Tussin] 5 ml PO Q6H PRN 12/08/18 methIMAzole [Tapazole*] 15 mg PO DAILY 12/08/18 predniSONE [Prednisone*] 1 tab PO DAILY 12/08/18 Arformoterol Tartrate [Brovana] 15 mcg IH BID #1 vial.neb 12/09/18 - Past Medical/Surgical History Diabetic: No -: Hypertension -: CAD -: COPD, on chronic oxygen and steroids -: GERD -: Depression -: Dementia -: AFib on chronic anti coagulation therapy -: Hyperthyroidism -: UTI -: tonsillectomy @ 8 yrs old -: Cataract surgery both eyes Psychosocial/ Personal History: Patient lives at the senior living - Family History Father -: Kidney disease Notes: Bryte's disease Mother -: Stroke Sister -: Hypertension, Kidney disease Brother -: Cancer Notes: cancer of esophagus and colon cancer - Social History Smoking Status: Never smoker Smoking therapy provided: No Alcohol use: No CD- Drugs: No Caffeine use: Yes Place of Residence: Detention Review of Systems 10-point ROS is otherwise unremarkable Physical Examination - Physical Exam General: Alert, In no apparent distress, Oriented x3, Obese HEENT: Atraumatic, Normocephalic, PERRLA Neck: Supple, 2+ carotid pulse no bruit, JVD not distended Respiratory: Normal air movement, Crackles/rales Cardiovascular: Normal pulses, Regular rate/rhythm, Normal S1 S2 Gastrointestinal: Normal bowel sounds, Soft and benign, Non-distended, No asc ites, No tenderness, Other (Rectal with mild external hemorrhoid) Musculoskeletal: No clubbing, Swelling (1+ pedal edema bilaterally) Integumentary: No rashes, No breakdown Neurological: Normal speech, Normal strength at 5/5 x4 extr, Normal tone Rectal: Small (He more red) - Studies Laboratory Data (last 24 hrs) 08/29/19 13:59: Sodium 140, Potassium 4.1, BUN 15, Creatinine 1.49 H, Glucose 194 H 08/29/19 13:59: WBC 12.0 H, Hgb 6.2 L*, Hct 20.1 L*, Plt Count 328 Assessment and Plan - Problems (Diagnosis) (1) Lower GI bleed Current Visit: Yes Status: Acute (2) Anemia due to blood loss, chronic Current Visit: Yes Status: Acute (3) PATRICIA (acute kidney injury) Onset Date: 12/07/16 Current Visit: No Status: Acute (4) CHF (congestive heart failure) Current Visit: No Status: Chronic Qualifiers: Heart failure type: diastolic Heart failure chronicity: acute on chronic Qualified Code(s): I50.33 - Acute on chronic diastolic (congestive) heart failure (5) COPD (chronic obstructive pulmonary disease) Onset Date: 12/07/16 Current Visit: No Status: Chronic Qualifiers: COPD type: unspecified COPD Qualified Code(s): J44.9 - Chronic obstructive pulmonary disease, unspecified (6) HTN (hypertension) Onset Date: 12/07/16 Current Visit: No Status: Chronic Qualifiers: Hypertension type: essential hypertension Qualified Code(s): I10 - Essential (primary) hypertension (7) Hyperthyroidism Current Visit: No Status: Chronic Discharge Plan: Detention Plan to discharge in: 48 Hours - Advance Directives Does patient have a Living Will: Yes Does patient have a Durable POA for Healthcare: Yes Physician Review: Patient Assessed, Agree with Above Assessment and Plan Physician Review Additional Text: Blood loss anemia-low hemoglobin as 6.2 -will transfuse 2 units PRBC today -obtain iron profile -will consult GI Lower GI bleed-may be due to bleeding hemorrhoids in setting of chronic anticoagulation -hold Eliquis now despite history of CHF and AFib since recurrent blood transfusion requiring GI bleed -do Protonix b.i.d. -consult GI for possible repeat colonoscopy Hypertension-resume home regimen History of CHF-with fluid overload, we do IV Lasix 40 Q 12 for now History of COPD-on stable continue chronic low-dose prednisone Continue on nasal cannula O2 History of hyperthyroidism-on methimazole DVT prophylaxis-SCDs, no systemic anticoagulation Advanced directives-full code for now Disposition-possible hospital stay for 1-2 days Time Spent Managing Pts Care (In Minutes): 65
[2019-08-29] MEDS ORDERED: ACETAMINOPHEN 500 MG TAB PO ONE (18:31)
[2019-08-29] MEDS ORDERED: ONDANSETRON 4 MG/2 ML VIAL IV PRN (18:31)
[2019-08-29] MEDS ORDERED: MORPHINE 2 MG/ML SYR IV PRN (18:31)
[2019-08-29] MEDS ORDERED: ALBUTEROL 2.5 MG/3 ML NEB SOL NEB PRN (18:31)
[2019-08-29] MEDS ORDERED: NA CHLORIDE 0.9% 250 ML ONE (18:35)
[2019-08-29] MEDS: HYDROCORTISONE ACETATE 25MG SUPP PR ONE ×2 (18:45→20:54)
[2019-08-29] MEDS ORDERED: FUROSEMIDE 40 MG/4 ML VIAL IV ONE (19:00)
[2019-08-29] MEDS ORDERED: HYDROCORTISONE SUC 100 MG INJ IV ONE (19:00)
[2019-08-29] MEDS ORDERED: DIPHENHYDRAMINE 50 MG/ML VIAL IV ONE (19:00)
[2019-08-29] MEDS ORDERED: VITAMIN K (ADULT) 10 MG/ML SQ SCH (19:00)
--- OUTSIDE RECORDS SUMMARY | 2019-08-29 19:06 | XMS REPORT | Clinical Summary ---
:1935 Author Organization [facility] Address [address] [place] [address] Care Team Providers Name Role Phone Jeramie Saldana Unavailable Allergies Active Allergy Reactions Severity Noted Date Comments Ciprofloxacin 09/04/2018 Levofloxacin Diarrhea, Rash Low 11/06/2016 Medications Medication Sig Dispensed Refills Start Date End Date Status albuterol HFA Inhale 2 puffs by 0 Active (PROAIR HFA) 90 mouth via inhaler mcg/actuation every 6 (six) inhaler hours as needed for Wheezing. diazePAM (VALIUM) 5 Take 5 mg by 0 Active MG tablet mouth 2 (two) times daily as needed for Anxiety. venlafaxine Take 75 mg by 0 Acti ve (EFFEXOR-XR) 75 MG mouth daily. 24 hr capsule predniSONE Take 5 mg by 0 Active (DELTASONE) 5 MG mouth daily. tablet methIMAzole Take 1.5 tablets 0 01/13/2017 Active (TAPAZOLE) 10 MG (15 mg total) by tablet mouth daily. acetaminophen-codei Take 1 tablet by 0 Active ne (TYLENOL #3) mouth every 4 300-30 mg per (four) hours as tablet needed for Pain. apixaban (ELIQUIS) Take 1 tablet 60 tablet 1 09/05/2018 Active 2.5 mg Tab tablet (2.5 mg total) by mouth 2 (two) times daily. nystatin Apply topically 2 0 Ac tive (MYCOSTATIN) (two) times daily 100,000 unit/gram Under both powder breasts . dextromethorphan-gu Take 1 capsule by 0 Active aifenesin mouth every 4 (CORICIDIN HBP (four) hours as CHEST BRIGETTE-COUGH) needed (cough). 10-200 mg Cap guaiFENesin Take 200 mg by 0 Act emmy (ROBITUSSIN) 100 mouth every 6 mg/5 mL syrup (six) hours as needed for Cough. melatonin 5 mg Chew Take 10 mg by 0 Active mouth nightly. formoterol Take 20 mcg by 0 Acti ve (PERFOROMIST) 20 nebulization 2 mcg/2 mL nebulizer (two) times solution daily. metoprolol tartrate Take 50 mg by 0 Active (LOPRESSOR) 50 MG mouth 2 (two) tablet times daily. ipratropium Take 500 mcg by 0 Ac tive (ATROVENT) 0.02 % nebulization nebulizer solution every 6 (six) hours as needed for Wheezing. furosemide (LASIX) Take 1 tablet (40 0 06/14/2019 Active 40 MG mg total) by tabletIndications: mouth daily. Chronic diastolic heart failure (HCC) potassium chloride Take 20 mEq by 0 06/14/2019 Active 20 mEq mouth daily. TbERIndications: Chronic diastolic heart failure (HCC) hydrocortisone Place rectally 30 g 0 06/14/2019 Active (ANUSOL-HC) 2.5 % daily. rectal creamIndications: Hemorrhoids, unspecified hemorrhoid type psyllium (METAMUCIL Take 1 packet by 0 06/15/2019 Active SUGAR-FREE) 3.4 mouth daily. gram packetIndications: Hemorrhoids, unspecified hemorrhoid type ferrous sulfate 325 Take 1 tablet 0 06/14/2019 Active (65 FE) MG (325 mg total) by tabletIndications: mouth daily with Iron deficiency breakfast. anemia due to chronic blood loss docusate sodium Take 1 capsule 0 06/14/2019 Active (COLACE) 100 MG (100 mg total) by capsuleIndications: mouth 2 (two) Hemorrhoids, times daily Hold unspecified for loose stool.. hemorrhoid type HYDROcodone-acetami Take 1 tablet by 0 12/09 Discontinued nophen (NORCO mouth 2 (two) 19 5-325) 5-325 mg per times daily as tablet needed for Pain. mirtazapine Take 15 mg by 0 06/12/19 Disc ontinued (REMERON) 15 MG mouth nightly. 20 tablet umeclidinium-vilant Inhale 1 puff by 0 Discontinued sanju (ANORO mouth via inhaler 19 ELLIPTA) 62.5-25 daily. mcg/actuation DsDv clotrimazole-betame Apply topically 2 0 Discontinued thasone (LOTRISONE) (two) times 20 1-0.05 % cream daily. metoprolol Take 2 tablets 0 01/13/2017 06/12/19 Dis continued (LOPRESSOR) 25 MG (50 mg total) by 20 tablet mouth 2 (two) times daily. spironolactone-hydr Take 1 tablet by 0 01/13/2017 Discontinued oCHLOROthiazide mouth daily. 19 (ALDACTAZIDE) 25-25 mg per tablet URSODIOL ORAL Take by mouth. 0 09/05/19 D iscontinued 19 NITROGLYCERIN ORAL Take by mouth. 0 Discontinued 20 furosemide (LASIX) Take 40 mg by 0 0 Discontinued 40 MG tablet mouth 2 (two) 20 times daily. potassium chloride Take 20 mEq by 0 Discontinued 20 mEq TbER mouth 2 (two) 20 times daily. Active Problems Problem Noted Date Atrial fibrillation 06/11/2019 Chronic anticoagulation 06/11/2019 Acute blood loss anemia 06/11/2019 Acute lower GI bleeding 06/11/2019 Hematochezia 10/29/2018 GIB (gastrointestinal bleeding) 09/04/2018 Acute cystitis without hematuria 01/10/2017 TIA (transient ischemic attack) 01/09/2017 Hypertension 01/09/2017 Hyperthyroidism 01/09/2017 COPD (chronic obstructive pulmonary disease) 7 Coronary artery disease 01/09/2017 Headache 01/09/2017 Leukocytosis 01/09/2017 Word finding difficulty 01/09/2017 Encounters Date Type Specialty Care Team Description Anesthesia Event Gastroenterology Saul Fitzgerald 0 Michelle, WORKING SUPERVISOR Orders Only General Internal 0 Medicine Hospital Encounter Cardiology Agnes Gibbs ds, unspecified hemorrhoid type (Primary Dx); 0 - Aria Acute blood los s anemia; MD Rachid Acute lower GI bleeding; 0 Diya Chao Paroxysmal a trial fibrillation (HCC); MD Hayden Chronic anticoagulation; MedinaDamari Iron 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; MD Terri Chronic diastol ic heart failure (HCC) Travel 0 Documentation Gastroenterology Addy Ramon 0 Shankar Martin III, MD Anesthesia Event Gastroenterology Dyllan Fisher 9 MD Corky Surgery Gastroenterology Nyasia, Manifraht, COLONOSCO PY,POLYPECTO 9 MD BURGOS Orders Only General Internal 9 Medicine Hospital Encounter Cardiology Dipti Oh, Acute cystitis without hematuria; 9 - Ashly Shah MD Hematochezia; Adio, Titiloneyda Hyperthyroidi sm; Juan Pablo Antonio MD Chest pain at rest; Imer Ibarra, PATRICIA (acute kidney injury) ([facility]); Gastrointestina l hemorrhage associated with anorectal source Travel 9 Documentation Internal Medicine Dipti Oh, Juan Pablo Shah MD Hospital Encounter Cardiology Brann, Gastroint estinal hemorrhage associated with anorectal source; 9 - Sunil Acute blood los s anemia; MD Paul Hematochezia; 9 George, Diverticulosis; MD Sofía Chronic diarrhea; Racheal Lowery Chronic bronchi tis, unspecified chronic bronchitis type ([facility]); MD Ronit Current use of intermediate teacher anticoagulation Travel 9 Telephone Gastroenterology Sue Shah Rectal Ble hannah 9 MD Renuka after 08/28/2018 Immunizations Name Dates Previously Given Next Due [...] six or more drinks on one occasion? No t asked Sex Assigned at Date Recorded Not on file Job Start Date Occupation Industry Not on file Not on file Not on file Travel History Travel Start Travel End No recent travel history available. Last Filed Vital Signs Vital Sign Reading Time Taken Blood Pressure 145/84 06/14/2019 12:04 PM CDT Pulse 76 06/14/2019 1:51 PM CDT Temperature 36.3 C (97.4 F) 06/14/2019 12:01 PM CDT Respiratory Rate 18 06/14/2019 1:51 PM CDT Oxygen Saturation 96% 06/14/2019 1:51 PM CDT Inhaled Oxygen Concentration - - Weight 77 kg (169 lb 12.1 oz) 06/14/2019 6:00 AM CDT Height 154.9 cm (5' 1") 10/28/2018 5:25 PM CDT Body Mass Index 32.07 06/14/2019 6:00 AM CDT Plan of Treatment Not on file Procedures Procedure Name Priority Date/Time Associated Diagnosis Comme nts RHYTHM STRIP - SCAN 06/16/2019 12:01 PM CDT TRANSFUSION SERVICE 06/15/2019 5:51 REPORT - SCAN PM CDT RHYTHM STRIP - SCAN 06/15/2019 11:02 AM CDT PREPARE Routine 06/14/2019 11:54 Results for this LEUKO-REDUCED RBC PM CDT procedure are in the results section. TRANSFUSION SERVICE 06/14/2019 5:51 REPORT - SCAN PM CDT BASIC METABOLIC Routine 06/14/2019 3:39 Results for this PANEL (7) AM CDT procedure are i n the results section. HEMOGLOBIN AND Routine 06/14/2019 3:39 Results f or this HEMATOCRIT AM CDT procedure are i n the results section. HEMOGLOBIN AND Routine 06/13/2019 8:16 Results f or this HEMATOCRIT PM CDT procedure are i n the results section. TRANSFUSE Routine 06/13/2019 6:21 LEUKO-REDUCED RED PM CDT BLOOD CELLS TYPE AND SCREEN, Routine 06/13/2019 10:18 Results for this AUTOMATED AM CDT procedure are i n the results section. HEMOGLOBIN AND Timed 06/13/2019 9:39 Results f or this HEMATOCRIT AM CDT procedure are i n the results section. CBC W/PLT COUNT & Routine 06/13/2019 3:56 Result s for this AUTO DIFFERENTIAL AM CDT procedure are in the results section. CBC W/PLT COUNT & Routine 06/13/2019 3:56 Result s for this AUTO DIFFERENTIAL AM CDT procedure are in the results section. ECG 12-LEAD Routine 06/12/2019 2:03 Results for this PM CDT procedure are i n the results section. HEMOGLOBIN AND Routine 06/12/2019 1:45 Results f or this HEMATOCRIT PM CDT procedure are i n the results section. IRON, TIBC, % SAT. Routine 06/12/2019 1:44 Resul ts for this (WITHOUT FERRITIN) PM CDT procedure are in the results section. FERRITIN Routine 06/12/2019 1:43 Results for this PM CDT procedure are i n the results section. 2D ECHO W/ DOPPLER ANDER 06/12/2019 12:37 Resul ts for this (CW/PW/COLOR) PM CDT procedure are in the results section. CBC W/PLT COUNT & Routine 06/12/2019 4:47 Result s for this AUTO DIFFERENTIAL AM CDT procedure are in the results section. CBC W/PLT COUNT & Routine 06/12/2019 4:47 Result s for this AUTO DIFFERENTIAL AM CDT procedure are in the results section. MAGNESIUM Routine 06/12/2019 4:47 Results for this AM CDT procedure are i n the results section. BASIC METABOLIC Routine 06/12/2019 4:47 Results for this PANEL (7) AM CDT procedure are i n the results section. HEMOGLOBIN AND Routine 06/11/2019 11:40 Results f or this HEMATOCRIT PM CDT procedure are i n the results section. TROPONIN I Routine 06/11/2019 11:40 Results for this PM CDT procedure are i n the results section. CBC W/PLT COUNT & Routine 06/11/2019 6:18 Result s for this AUTO DIFFERENTIAL PM CDT procedure are in the results section. CBC W/PLT COUNT & Routine 06/11/2019 6:18 Result s for this AUTO DIFFERENTIAL PM CDT procedure are in the results section. TROPONIN I Routine 06/11/2019 6:18 Results for this PM CDT procedure are i n the results section. MAGNESIUM Routine 06/11/2019 6:18 Results for this PM CDT procedure are i n the results section. BASIC METABOLIC Routine 06/11/2019 6:18 Results for this PANEL (7) PM CDT procedure are i n the results section. RHYTHM STRIP - SCAN 11/02/2018 7:40 AM CDT HEMOGLOBIN AND Routine 10/31/2018 4:10 Results f or this HEMATOCRIT AM CDT procedure are i n the results section. BASIC METABOLIC Routine 10/31/2018 4:10 Results for this PANEL (7) AM CDT procedure are i n the results section. BASIC METABOLIC Routine 10/30/2018 6:13 Results for this PANEL (7) AM CDT procedure are i n the results section. HEMOGLOBIN AND Routine 10/30/2018 6:13 Results f or this HEMATOCRIT AM CDT procedure are i n the results section. HEMOGLOBIN AND Routine 10/29/2018 2:21 Results f or this HEMATOCRIT PM CDT procedure are i n the results section. TROPONIN I Routine 10/29/2018 2:21 Results for this PM CDT procedure are i n the results section. REPORT OF PROCEDURE 10/29/2018 1:39 - ENDOSCOPY URL PM CDT POCT-GLUCOSE METER Routine 10/29/2018 1:24 Resul ts for this PM CDT procedure are i n the results section. TISSUE EXAM AP Routine 10/29/2018 12:28 Results for this PM CDT procedure are i n the results section. COLONOSCOPY,POLYPECT 10/29/2018 10:00 Hematochezia ROMY AM CDT ECG 12-LEAD Routine 10/29/2018 8:10 AM CDT Procedure Note - Interface, External Ris In - 10/29/2018 8:15 AM CDT Ventricular Rate 98 BPM Atrial Rate 98 BPM P-R Interval 154 ms QRS Duration 78 ms Q-T Interval 366 ms QTC Calculation(Bazett) 467 ms P [place] 46 degrees R [place] 3 degrees T [place] 63 degrees Normal sinus rhythm Normal ECG When compared with ECG of 01:21, No significant change was fo und ECG 12-LEAD Routine 10/29/2018 8:10 AM CDT Resu lts for this procedure are i n the results section . TROPONIN I Routine 10/29/2018 5:39 AM CDT Resu lts for this procedure are i n the results section . HEMOGLOBIN AND HEMATOCRIT Routine 10/29/2018 5:38 AM CDT Results for this procedure are i n the results section . XR CHEST 1 VIEW Routine 10/29/2018 3:53 AM CDT R esults for this PORTABLE/BEDSIDE procedure a re in the results section . BASIC METABOLIC PANEL (7) Routine 10/29/2018 1:41 AM CDT Results for this procedure are i n the results section . TROPONIN I Routine 10/29/2018 1:41 AM CDT Resu lts for this procedure are i n the results section . MAGNESIUM Routine 10/29/2018 1:41 AM CDT Resu lts for this procedure are i n the results section . ECG 12-LEAD Routine 10/29/2018 1:21 AM CDT Procedure Note - Interface, External Ris In - 10/29/2018 1:53 AM CDT Ventricular Rate 78 BPM Atrial Rate 78 BPM P-R Interval 160 ms QRS Duration 80 ms Q-T Interval 414 ms QTC Calculation(Bazett) 471 ms P [place] 46 degrees R [place] 15 degrees T [place] 66 degrees Normal sinus rhythm with sin us arrhythmia Normal ECG When compared with ECG of 18:09, Premature atrial complexes a re no longer Present ECG 12-LEAD Routine 10/29/2018 1:21 AM CDT Resu lts for this procedure are i n the results section . CBC W/PLT COUNT & AUTO Routine 10/28/2018 8:08 PM CDT Results for this DIFFERENTIAL procedure are i n the results section . CBC W/PLT COUNT & AUTO Routine 10/28/2018 8:08 PM CDT Results for this DIFFERENTIAL procedure are i n the results section . RHYTHM STRIP - SCAN 09/07/2018 10:30 AM CDT RHYTHM STRIP - SCAN 09/07/2018 10:22 AM CDT TRANSFUSION SERVICE REPORT - 09/05/2018 6:00 PM CDT SCAN CBC (HEMOGRAM ONLY) Routine 09/05/2018 5:01 AM CDT Results for this procedure are i n the results section . BASIC METABOLIC PANEL (7) Routine 09/05/2018 5:00 AM CDT Results for this procedure are i n the results section . ABORH, MANUAL STAT 09/04/2018 7:17 PM CDT Res ults for this procedure are i n the results section . THROMBOELASTOGRAPH (TEG) Routine 09/04/2018 7:17 PM CDT Results for this procedure are i n the results section . TYPE AND SCREEN, AUTOMATED Routine 09/04/2018 6:36 PM CDT Results for this procedure are i n the results section . HEMOGLOBIN AND HEMATOCRIT STAT 09/04/2018 6:36 PM CDT Results for this procedure are i n the results section . HEMOGLOBIN AND HEMATOCRIT Routine 09/04/2018 4:49 PM CDT Results for this procedure are i n the results section . T4, FREE Routine 09/04/2018 12:22 PM CDT Resu lts for this procedure are i n the results section . TSH/FREE T4 IF INDICATED Routine 09/04/2018 12:22 PM CDT Results for this procedure are i n the results section . CBC (HEMOGRAM ONLY) Routine 09/04/2018 10:57 AM CDT Results for this procedure are i n the results section . CBC (HEMOGRAM ONLY) Routine 09/04/2018 3:58 AM CDT Results for this procedure are i n the results section . HEPATIC FUNCTION PANEL Routine 09/04/2018 3:58 AM CDT Results for this procedure are i n the results section . PT/APTT Routine 09/04/2018 3:58 AM CDT Resu lts for this procedure are i n the results section . MAGNESIUM Routine 09/04/2018 3:58 AM CDT Resu lts for this procedure are i n the results section . BASIC METABOLIC PANEL (7) Routine 09/04/2018 3:58 AM CDT Results for this procedure are i n the results section . after 08/28/2018 Results RHYTHM STRIP - SCAN (06/16/2019 12:01 PM CDT)Only the most recent of5 results within the time period is included. Narrative Performed At This result has an attachment that is no t available. TRANSFUSION SERVICE REPORT - SCAN (06/15/2019 5:51 PM CDT)Only the most recent of3 resultswithin the time period is included. Narrative Performed At This result has an attachment that is no t available. Prepare Leuko-Red RBC (06/14/2019 11:54 PM CDT) CROSSMATCH COMPATIBLE [facility] [place] Unit ABO B Pos [facility] [place] UNIT NUMBER [id number] [facility] [place] Status TX_TIMEINCHART [facility] [place] Blood Bank Product RED BLOOD CELLS [place] PRODUCT CODE [id number] [facility] [place] Specimen Other Performing Organization Address City/State/Zipcode Phone Number [place] Hemoglobin and hematocrit (06/14/2019 3:39 AM CDT)Only the most recent of11 resultswithin the time period is included. Hemoglobin 8.8 (L) 11.2 - 15.7 GM/DL [facility] Hematocrit 28.1 (L) 34.1 - 44.9 % [facility] Specimen Blood Narrative Performed At Newspaper Managing Editor ID - [id number] [facility] Performing Organization Address [facility] Phone Number [facility] [address] [place] [address] CUDDY Basic Metabolic Panel (06/14/2019 3:39 AM CDT)Only the most recent of8 results within the time period is included. Sodium 140 136 - 145 meq/L [facility] Potassium 4.0 3.5 - 5.1 meq/L [facility] Chloride 105 98 - 107 meq/L [facility] CO2 28 22 - 29 meq/L [facility] BUN 15 7 - 21 mg/dL [facility] Creatinine 1.27 (H) 0.57 - 1.25 mg/dL [facility] Glucose 100 70 - 105 mg/dL [facility] Calcium 9.0 8.4 - 10.2 mg/dL [facility] [place] EGFR 40Comment: ESTIMATED GFR IS mL/min/1.73 sq m [facility] NOT ACCURATE CREATININE [facility] CLEARANCE IN PREDICTING GLOMERULAR FILTRATION RATE. ESTIMATED GFR IS NOT APPLICABLE FOR DIALYSIS PATIENTS. Specimen Blood Narrative Performed At Newspaper Managing Editor ID - CONNOR M [facility] Performing Organization Address [facility] Phone Number [facility] [address] [place] [address] CENTER Transfuse Leuko-Red RBC (06/13/2019 6:21 PM CDT)Only the most recent of2 resultswithin the time period is included.Type and screen, automated (06/13/2019 10:18 AM CDT)Only the most recent of2 resultswithin the time period is included. ABO/RH AUTOMATED (BEAKER) B POSITIVE [facility] Ab Scrn NEGATIVE [facility] Specimen Blood Performing Organization Address City/State/Zipcode Phone Number [facility] [address] [place] [address] CBC with platelet count + automated diff (06/13/2019 3:56 AM CDT)Only the most recent of4 resultswithin the time period is included. WBC 15.4 (H) 3.5 - 10.5 K/L [facility] RBC 2.85 (L) 3.93 - 5.22 M/L [facility] Hemoglobin 7.2 (L) 11.2 - 15.7 GM/DL [facility] Hematocrit 23.6 (L) 34.1 - 44.9 % [facility] MCV 82.8 79.4 - 94.8 fL [facility] HE ALTH [facility] MCH 25.3 (L) 25.6 - 32.2 pg [facility] HE ALTH [facility] MCHC 30.5 (L) 32.2 - 35.5 GM/DL [facility] RDW 14.6 (H) 11.7 - 14.4 % [facility] ALTH [facility] Platelets 303 150 - 450 K/CU MM [facility] MPV 10.0 9.4 - 12.3 fL [facility] HE ALTH [facility] nRBC 0 0 - 0 /100 WBC [facility] % Neutros 74 % [facility] [place] [facility] % Lymphs 16 % [facility] % Monos 7 % [facility] % Eos 1 % [facility] [place] % Baso 1 % [facility] AL[facility] # Neutros 11.41 (H) 1.56 - 6.13 K/L [facility] # Lymphs 2.45 1.18 - 3.74 K/L [facility] # Monos 1.12 (H) 0.24 - 0.36 K/L [facility] # Eos 0.20 0.04 - 0.36 K/L [facility] # Baso 0.10 (H) 0.01 - 0.08 K/L [facility] Immature 1 0 - 1 % [facility] Granulocytes-Relative MEDICAL CE NTER Specimen Blood Performing Organization Address City/[facility]/Zipcode Phone Number [facility] MEDICAL [address] [place] [address] CENTER ECG 12 lead (06/12/2019 2:03 PM CDT)Only the most recent of3 resultswithin the time period is included. Specimen Narrative Performed At Ventricular Rate 74 BPM GE MUSE Atrial Rate 74 BPM P-R Interval 176 ms QRS Duration 82 ms Q-T Interval 434 ms QTC Calculation(Bazett) 481 ms P [place] 47 degrees R [place] -6 degrees T [place] 94 degrees Normal sinus rhythm with sinus arrhythmi a Inferior infarct , age undetermined T wave abnormality, consider lateral isc hemia Abnormal ECG When compared with ECG of 29-OCT-2018 08 :10, T wave inversion now evident in Lateral leads Confirmed by Gurvinder Jason ([id number]) on 06/15/2019 8:59 :29 AM Procedure Note Interface, External Ris In - 06/15/2019 8:59 AM CDT Ventricular Rate 74 BPM Atrial Rate 74 BPM P-R Interval 176 ms QRS Duration 82 ms Q-T Interval 434 ms QTC Calculation(Bazett) 481 ms P [place] 47 degrees R [place] -6 degrees T [place] 94 degrees Normal sinus rhythm with sinus arrhythmi a Inferior infarct , age undetermined T wave abnormality, consider lateral isc hemia Abnormal ECG When compared with ECG of 29-OCT-2018 08 :10, T wave inversion now evident in Lateral leads Confirmed by Gurvinder Jason ([id number]) on 06/15/2019 8:59:29 AM Performing Organization Address City/[facility]/Zipcode Phone Number [email or web address] MUSE Iron, TIBC, % sat. (without ferritin) (06/12/2019 1:44 PM CDT) Iron 16.0 (L) 40.0 - 160.0 ug/dL [facility] TIBC 286 250 - 450 ug/dL [facility] Iron % Saturation 6 (L) 20 - 55 % [facility] Specimen Blood Narrative Performed At Newspaper Managing Editor ID - BS [facility] Performing Organization Address City/[facility]/Zipcode Phone Number [address] [address] CENTER Ferritin (06/12/2019 1:43 PM CDT) Ferritin 10 5 - 275 ng/mL [facility] Specimen Blood Narrative Performed At Newspaper Managing Editor ID - BS [facility] Performing Organization Address City/[facility]/Zipcode Phone Number [address] [address] CENTER 2D Echo W/Doppler(CW/PW/Color) (06/12/2019 12:37 PM CDT) Ejection Fraction [facility] ECHO HEAR [facility] Specimen Narrative Performed At Transthoracic Echocardiography Report (T TE) [facility] ECHO HE[facility]LAB [facility] Demographics Patient NameFer PRADHAN of Study06/12/2019 BARRY Female Visit [id number] Room [id number] Number Date of 4Referring Cesar Stewart Physician Age 83 year(s)[place] Attendant Elder Styles RDCS Installer Inspector Final Elizabeth Alcantara RDCSInterpreting Luis Mejia Physician Procedure Type of Study TTE procedure:2DECHO W DOPPLER(CW/PW/COLOR) (ANDER) Indications:Unexplained Dyspnea. Clinical History HGB 7.5 HCT 24.1 % COPD, GIB, HX PAF, HYPERTHYROID Contrast Medium: Definity. Height: 61 inches Weight: 76.66 kg (169 lbs) BSA: 1.76 m^2 BMI: 31.93 kg/m^2 HR: 69 bpm BP: 123/58 mmHg Summary The left ventricle is chamber size (by vol index) is normal (female - LVED vol - 29-61ml/m2). All of the LV segments are hyperkinetic . LVEF by Guadarrama's method of disk assessment is increased (>70%) . Grade 1 diastolic dysfunction (impaired relaxation and low-normal LA pressure). Estimated peak systolic PA pressure is 25-30 mmHg (normal range) . Previous Study No prior studies available for comparis on. Signature Findings Technical Quality: Technically adequate exam. Left Ventricle LV endocardium is adequately visualized with IV ul trasound enhancing agent. The left ventr icle is ch gordo size (by vol index) is normal (fem lucien - LV ED vol - 29-61ml/m2). No evidence of LV hy pertrophy. All of the LV segments are hy perkinetic . Global LV systolic function hy perdynamic . LVEF by Guadarrama's method of disk as sessment is increased (>70%) . Grade 1 d iastolic dy sfunction (impaired relaxation and low-n ormal LA pr essure). Left AtriumLA size is mildly enlarged (35-41 ml/m2) . Right VentricleThe right ventricular chamber size and systolic fu nction are within normal limits. Right Atrium RA size is normal. Aortic Valve Mild AoV cusp thickening. Ao V thickening primarily involves the non- coronary cu ps(s). Mi ld aortic regurgitation. Mitral Valve Mild MV leaflet thickening. Mi ld mitral annular calcification. Tricuspid ValveTV structure is normal. Mi ld tricuspid regurgitation. Es timated peak systolic PA pressure is 25- 30 mmHg (n ormal range) . Pulmonic Valve PV is not well visualized; function appears normal by Doppler visualized. AortaAortic root size (SInus of Valsalva diameter) i s in determinate (not well seen) . PericardiumAn echo lucent space is noted consistent with pr ominent pericardial fat pad. IVC/SVC/PA/PV/PleuralThe estimated RA pressure by IVC dynamics 0-5mmHg . Chambers/Structures Left Atrium LA Volume: 68.77 ml LA Vol. Index: 39 ml/m^2 Left Ventricle LVIDd: 3.69 cm LVIDs: 2.3 cm LV Septum Diastolic: 1.1 cm LV PW Diastolic: 1.02 cm LV FS: 37.7 % LVEDV Guadarrama's:86.54 ml LVESV Guadarrama's:18.25 ml LVEDVI: 49 ml/m^2 LVEF Guadarrama's: 78.9 % LVESVI: 10 ml/m^2 LVOT Diameter: 1.93 cm Doppler/Quantitative Measurements Mitral Valve MV Peak E-Wave: 0.76 m/sMV Peak A-Wave: 0.79 m/s E/A Ratio: 0. 96 Peak Gradient : 2.3 mmHg Deceleration Time: 185.8 msec MV Steve. Peak: Tissue Doppler E' Septal Velocity: 0.73 m/sE/E': 11.74 E' Lateral Velocity: 0.06 m/s Aortic Valve Peak Velocity: 1.55 m/sMean Velocity: 1.09 m/s Peak Gradient: 9.55 mmHg Mean Gradient: 5.31 mmHg AV Area (continuity): 2.57 cm^2 AV VTI: 33.57 cm AV DVI: 0.88 LVOT Peak Velocity: 1.32 m/s Peak Gradient: 6.96 mmHg Mean Velocity: 0.88 m/s Mean Gradient: 3.57 mmHg LVOT Diameter: 1.93 cmLVOT VTI: 29.51 cm LVOT Area: 2.93 cm^2LVOT SV:86.29 ml LVOT CO: 5.95 l/min LVOT CI: 3.38 l/min/m^2 Tricuspid Valve TR Velocity: 2.34 m/s TR Gradient: 21.82 mmHg Procedure Note Interface, External Ris In - 06/12/2019 2:40 PM CDT Transthoracic Echocardiography Report (TTE) Demographics Patient Name ANATOLIY PRADHANRIA Date of Study 06/12/2019 BARRY OHN [id number] Gende r Female Visit Number [id number] Race Room Number 2455 Number Date of 1935 Refer ring Cesar graff Age 83 year(s) Sonog vinh 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 Clinical History HGB 7.5 HCT 24.1 % COPD, GIB, HX PAF, HYPERTHYROID Contrast Medium: Definity. Height: 61 inches Weight: 76.66 kg (169 lbs) BSA: 1.76 m^2 BMI: 31.93 kg/m^2 HR: 69 bpm BP: 123/58 mmHg Summary The left ventricle is chamber size (by vol index) is normal (female - LVED vol - 29-61ml/m2). All of the LV segmen ts are hyperkinetic . LVEF by Guadarrama's method of disk assessment is increased (>70%) . Grade 1 diastolic dysfunction (impaired relaxation and low-normal LA pressure). Estimated peak systolic PA pressure is 25-30 mmHg (normal range) . Previous Study No prior studies available for comparis on. Signature Findings Technical Quality: Technically adequate exam. Left Ventricle LV endocardium i s adequately visualized with IV ultrasound enhan cing agent. The left ventricle is chamber size (by vol index) is normal (female - LVED vol - 29-61 ml/m2). No evidence of LV hypertrophy. All of the LV segments are hyperkinetic . G lobal LV systolic function hyperdynamic . L VEF by Guadarrama's method of disk assessment is in creased (>70%) . Grade 1 diastolic dysfunction (imp aired relaxation and low-normal LA pressure). Left Atrium LA size is mildl y enlarged (35-41 ml/m2) . Right Ventricle The right ventri cular chamber size and systolic function are wit hin normal limits. Right Atrium RA size is lidia l. Aortic Valve Mild AoV cusp th ickening. AoV thickening p rimarily involves the non- coronary cups(s). Mild aortic regu rgitation. Mitral Valve Mild MV leaflet thickening. Mild mitral anali lar calcification. Tricuspid Valve TV structure is normal. Mild tricuspid r egurgitation. Estimated peak s ystolic PA pressure is 25-30 mmHg (normal range) . Pulmonic Valve PV is not well v isualized; function appears normal by Doppler visua lized. Aorta Aortic root size (SInus of Valsalva diameter) is indeterminate (n ot well seen) . Pericardium An echo lucent s pace is noted consistent with prominent perica rdial fat pad. IVC/SVC/PA/PV/Pleural The estimated RA pressure by IVC dynamics 0-5mmHg . Chambers/Structures Left Atrium LA Volume: 68.77 ml LA Vol. Index: 39 ml/m^2 Left Ventricle LVIDd: 3.69 cm LVIDs: 2.3 cm LV Septum Diastolic: 1.1 cm LV PW Diastolic: 1.02 cm LV FS: 37.7 % LVEDV Guadarrama's:86.54 ml LVESV Guadarrama's:18.25 ml LVEDVI: 49 ml/m^2 LVEF Guadarrama's: 78.9 % LVESVI: 10 ml/m^2 LVOT Diameter: 1.93 cm Doppler/Quantitative Measurements Mitral Valve MV Peak E-Wave: 0.76 m/s M V Peak A-Wave: 0.79 m/s E /A Ratio: 0.96 P eak Gradient: 2.3 mmHg D eceleration Time: 185.8 msec MV Steve. Peak: Tissue Doppler E' Septal Velocity: 0.73 m/s E /E': 11.74 E' Lateral Velocity: 0.06 m/s Aortic Valve Peak Velocity: 1.55 m/s Mean Velocity: 1.09 m/s Peak Gradient: 9.55 mmHg Mean Gradient: 5.31 mmHg AV Area (continuity): 2.57 cm^2 AV VTI: 33.57 cm AV DVI: 0.88 LVOT Peak Velocity: 1.32 m/s Pea k Gradient: 6.96 mmHg Mean Velocity: 0.88 m/s Rachana n Gradient: 3.57 mmHg LVOT Diameter: 1.93 cm LVO T VTI: 29.51 cm LVOT Area: 2.93 cm^2 LVO T SV:86.29 ml LVOT CO: 5.95 l/min LVO T CI: 3.38 l/min/m^2 Tricuspid Valve TR Velocity: 2.34 m/s TR Gradient: 21.82 mmHg Performing Organization Address [facility] Phone Number [facility] MKCKESSON CPACS Magnesium (06/12/2019 4:47 AM CDT)Only the most recent of4 resultswithin the time period is included. Magnesium 2.2 1.6 - 2.6 mg/dL [facility] Specimen Blood Narrative Performed At Newspaper Managing Editor ID - PIAYA L [facility] Performing Organization Address [facility] [place] [address] CENTER Troponin I (06/11/2019 11:40 PM CDT)Only the most recent of5 resultswithin the time period is included. Troponin I 0.01 0.00 - 0.03 ng/mL [facility] Specimen Blood Narrative Performed At Troponin I (TnI) levels must be interpreted [facility] in the context of the presenting symptoms and the clinical findings. Elevated TnI levels indicate myocardial damage, but are not specific for ischemic heart disease. Elevated TnI levels are seen in patients with other cardiac conditions (including myocarditis and congestive heart failure), and slight TnI elevations occur in patients with other conditions, including sepsis, renal failure, acidosis, acute neurological disease, and persistent tachyarrhythmia. Newspaper Managing Editor ID - PIAYA L Performing Organization Address City/State/Zipcode Phone Number [facility] [address] [place], [place] [id number] CENTER REPORT OF PROCEDURE - ENDOSCOPY URL (10/29/2018 1:39 PM CDT) Narrative Performed At This result has an attachment that is no t available. POC-Glucose meter (10/29/2018 1:24 PM CDT) POC-Glucose Meter 123 (H)Comment: TESTED AT 70 - 110 mg/dL [facility] [address] [facility] [address] Specimen Blood Performing Organization Address [facility]/Zipcode Phone Number [address] [address] CENTER Tissue Exam (10/29/2018 12:28 PM CDT) Case Report Surgical Pathology Report Case: [id number] [facility] Authorizing Provider:Zarina Anderson MDCollected: 10/29/2018 [facility] Ordering Location: [address] Received:10/31/2018 0811 Service Pathologist: Amanda Guajardo MD Specimens: A) - Polyp, C olon - Sigmoid, via hot snare B) - Polyp, Colon - Rectum, via hot snare, 2 polyps in Jab B DIAGNOSIS A.COLON, SIGMOID, ENDOSCOPIC POLYPECTOMY: [facility] - SESSILE SERRATED POLYP MEDICA CENTER - NEGATIVE FOR HIGH GRADE DYSPLASIA OR MALIGNAN CY B.COLON, RECTUM, POLYP X 2, ENDOSCOPIC POLYPECTO MY: - PIECES OF TUBULAR ADENOMA - NO DEFINITE HIGH GRADE DYSPLASIA SEEN - NO MALIGNANCY PRESENT Signing Pathologist Direct Phone Line: CPT Code(s) 97084 X 2 [facility] CLINICAL HISTORY Pre and postop diagnosis: [facility] hematochezia MEDICAL CENTER SPECIMEN SOURCE A. Polyp, colon - sigmoid; [facility] B. Polyp, colon - rectum, 2 [facility] polyps GROSS DESCRIPTION A. Received in formalin labe led with the patient's name, accession number and "polyp, colon - sigmoid" is a 0.7 x 0.5 x 0.5 cm irregular pink polyp. The base is inked blue and the specimen is bisected and entirely submitted in A1. [facility] B. Received in formalin labe led with the patient's name, accession number and "polyp, colon - rectum" is a 1.5 x 1.5 x 0.4 cm aggregate of multiple, irregular arana-pink polypoid tissue fragments. The lar mikel tissues are sectioned an d the specimen is entirely submitted in B1-B3. CG/pl MICROSCOPIC DESCRIPTION PERFORMED [facility] Specimen Tissue - Polyp, Colon - Sigmoid Tissue - Polyp, Colon - Rectum Performing Organization Address City/State/Zipcode Phone Number [facility] [address] [place] [address] CENTER XR chest 1 view portable / bedside (10/29/2018 3:53 AM CDT) Specimen Narrative Performed At FINAL REPORT Spotzer Chest, one view. HISTORY: chest pain COMPARISON: None IMPRESSION: Tortuous thoracic aorta with a prominent ascending thoracic aorta. Consider a CTA on for further evaluation . The cardiac silhouette is near the upper limit of normal in size. Pulmonary venous congestion. Streaky opacities in the right base are likely due to atelectasis. No pleural effusion or pneumothorax. No acu te bony abnormality. Signed: Ankush Munoz MD Report Verified Date/Time:10/29/2018 06:59:47 [place] Location: [facility] C013Y CT Body [facility] Procedure Note Interface, External Ris In - 10/29/2018 7:02 AM CDT FINAL REPORT Chest, one view. HISTORY: chest pain COMPARISON: None IMPRESSION: Tortuous thoracic aorta with a prominent ascending thoracic aorta. Consider a CTA on for further evaluation . The cardiac silhouette is near the upper limit of normal in size. Pulmonary venous congestion. Streaky opacities in the right base are likely due to atelectasis. No pleural effusion or pneumothorax. No acu te bony abnormality. Signed: Ankush Munoz MD Report Verified Date/Time: 10/29/2018 0 6:59:47 [place] Location: [facility] B1 C013Y CT Body R eading Room Performing Organization Address City/State/Zipcode Phone Number GE RIS CBC (Hemogram only) (09/05/2018 5:01 AM CDT)Only the most recent of3 results within the time period is included. WBC 14.3 (H) 3.5 - 10.5 K/L [facility] [place] RBC 3.26 (L) 3.93 - 5.22 M/L [facility] Hemoglobin 9.0 (L) 11.2 - 15.7 GM/DL [facility] Hematocrit 29.6 (L) 34.1 - 44.9 % [facility] MCV 90.8 79.4 - 94.[address] [facility] MCH 27.6 25.6 - 32.[address] [facility] MCHC 30.4 (L) 32.2 - 35.5 GM/DL [facility] RDW 12.7 11.7 - 14.4 % [facility] Platelets 302 150 - 450 K/CU MM [facility] MPV 10.7 9.4 - 12.[address] [facility] nRBC 0 0 - 0 /[address] [facility] Specimen Blood Performing Organization Address City/State/Zipcode Phone Number [facility] [address] [place] [address] CENTER ABORH, manual (09/04/2018 7:17 PM CDT) ABO Grouping B [facility] Rh Factor POS [facility] Specimen Blood Performing Organization Address City/[facility]/Zipcode Phone Number [address] [address] Thromboelastograph (TEG) (09/04/2018 7:17 PM CDT) TEG Activated Clotting Time 4.5 4.0 - 7.0 minutes [facility] TEG Fibrinogen Activity 78.3 (H) 61.0 - 73.0 degrees [facility] TEG Platelet Aggregation 71.4 (H) 55.0 - 65.0 MM [facility] TEG Fibrinolysis 1.0 0.0 - 5.0 % [facility] [place] TEG-H Activated Clotting Time 4.5 4.0 - 7.0 minutes [facility] TEG-H Fibrinogen Activity 75.3 (H) 61.0 - 73.0 degrees [facility] TEG-H Platelet Aggregation 62.9 55.0 - 65.0 MM [facility] TEG-H Fibrinolysis 2.2 0.0 - 5.0 % [facility] Specimen Blood Performing Organization Address City/[facility]/Zipcode Phone Number [address] [address] [place] TSH/Free T4 If Indicated (09/04/2018 12:22 PM CDT) TSH 0.01 (L) 0.35 - 4.94 uIU/mL [facility] Specimen Blood Performing Organization Address City/[facility]/Zipcode Phone Number [address] [address] CENTER T4, free (09/04/2018 12:22 PM CDT) Free T4 1.14 0.70 - 1.48 ng/dL [facility] Specimen Blood Performing Organization Address City/[facility]/Zipcode Phone Number [address] [address] CENTER PT/aPTT (09/04/2018 3:58 AM CDT) Protime 15.4 (H) 11.9 - 14.2 seconds [facility] INR 1.3 <=5.[address] [facility] PTT 38.0 (H) 22.5 - 36.0 seconds [facility] Specimen Blood Narrative Performed At Effective 08/17/2018: PT Reference Range [facility] Change New: 11.9-14.2Previous: 11.7-14.7 RECOMMENDED COUMADIN/WARFARIN INR THERAPY RANGES STANDARD DOSE: 2.0-3.0Includes: PROPHYLAXIS for venous thrombosis, systemic embolization; TREATMENT for venous thrombosis and/or pulmonary embolus. HIGH RISK: Target INR is 2.5-3.5 for patients wiht mechanical heart valves. Performing Organization Address City/[facility] Phone Number [address] [address] [place] Hepatic function panel (09/04/2018 3:58 AM CDT) Protein, Total 7.7 6.0 - 8.3 gm/dL [facility] Albumin 3.5 3.5 - 5.0 g/dL [facility] Total Bilirubin 0.3 0.2 - 1.2 mg/dL [facility] Bilirubin, Direct 0.2 0.1 - 0.5 mg/dL [facility] Alkaline Phosphatase 72 40 - 150 U/L [facility] AST 16 5 - 34 U/L [facility] ALTH [facility] ALT 10 6 - 55 U/L [facility] Specimen Blood Performing Organization Address City/State/Zipcode Phone Number [facility] [address] [place] [address] CENTER after 08/28/2018 Insurance Payer Benefit Plan / Group Subscriber ID Type Phone A ddress MEDICARE MEDICARE A B xxxxxxxxxxx Medicare MCR SUPPLEMENT/INDIVIDUAL [facility] xxxxxxxxxxx Medigap MEDICAID MEDICAID [facility] xxxxxxxxx Medicaid Advance Directives For more information, please contact:[address] [phone] Code Status Date Activated Date Inactivated Comments Full Code 06/11/2019 4:59 PM 06/14/2019 4:36 PM This code status was determined by: Patient Full Code 10/28/2018 6:25 PM 10/31/2018 4:20 PM This code status was determined by: Patient Full Code 09/04/2018 3:16 AM 09/06/2018 12:11 AM This code status was determined by: Patient Full Code 01/09/2017 3:57 AM 01/13/2017 2:09 PM This code status was determined by: Patient
--- OUTSIDE RECORDS SUMMARY | 2019-08-29 19:10 | XMS REPORT | Continuity of Care Document ---
:1935 Author Organization [facility] t Address [address] [place] [address] Care Team Providers Name Role Phone Gayle Oliveira MD Attending Clinician [phone] Hayden Chao MD Attending Clinician Terri Medina MD Attending Clinician Ting Fitzgerald CRNA Attending Clinician GAYLE OLIVEIRA Attending Clinician Unavailable Shankar Ramon MD Attending Clinician [phone] ALYSSA AVILEZ Attending Clinician Unavailable Alyssa Avilez MD Attending Clinician [phone] Marisela Britt MD Attending Clinician Stacey SALINAS Attending Clinician Corky Fisher MD Attending Clinician Nyasia SALINAS Attending Clinician Paul Bonilla MD Attending Clinician George SALINAS Attending Clinician Ronit Lowery MD Attending Clinician PAUL BONILLA Attending Clinician Unavailable Renuka Shah MD Attending Clinician MAGALYS Attending Clinician Unavailable HAYDEN CHAO Admitting Clinician Unavailable ALYSSA AVILEZ Admitting Clinician Unavailable PAUL BONILLA Admitting Clinician Unavailable MAGALYS Admitting Clinician Unavailable Payers Payer Name Policy Policy Number Effective Expiration Source Type Date Date MEDICAREMEDICARE A xxxxxxxxxxx [facility] MCR x[facility]xx [facility] SU[facility]INDIVIDUALAARP/UN[facility] MEDICAIDMEDICAID OF xxxxxxxxx [facility] [place] [facility] Problems Condition Condition Condition Status Onset Resolution Last Treating Co mments Source Name Details Category Date Date Treatment Clinician Date Atrial Atrial Disease Active [facility] fibrillati fibrillati 3-22 Sherine kes - on on 00:00: Medical 00 [place] Chronic Chronic Disease Active [facility] anticoagul anticoagul 3-22 Sherine kes - ation ation 00:00: Medical 00 [place] Acute Acute Disease Active [facility] blood loss blood loss 3-22 Sherine kes - anemia anemia 00:00: Medical 00 [place] Acute Acute Disease Active [facility] lower GI lower GI 3-22 [facility] - bleeding bleeding 00:00: Medica l 00 [place] Hematochez Hematochez Disease Active [facility] ia ia 8-10 [facility] - 00:00: Medical 00 [place] GIB GIB Disease Active [facility] (gastroint (gastroint 6-16 Sherine kes - estinal estinal 00:00: Medical bleeding) bleeding) 00 Cent er Acute Acute Disease Active 2016-[address] [facility] cystitis cystitis 0-22 [facility] - without without 00:00: Medical hematuria hematuria 00 Cent er TIA TIA Disease Active 2016-[address] [facility] (transient (transient 0-21 Sherine kes - ischemic ischemic 00:00: Medica l attack) attack) 00 Center Hypertensi Hypertensi Disease Active 2016-[address] on on 0-21 [facility] - 00:00: Medical 00 [place] Hyperthyro Hyperthyro Disease Active 2016-[address] idism idism 0-21 [facility] - 00:00: Medical 00 [place] COPD COPD Disease Active 2016-[address] [facility] (chronic (chronic 0-21 [facility] - obstructiv obstructiv 00:00: Me dical e e 00 Center pulmonary pulmonary disease) disease) Coronary Coronary Disease Active 2016-03 [facility] artery artery 0-21 [facility] - disease disease 00:00: Medical 00 [place] Headache Headache Disease Active 2016-03 [facility] 0-21 [facility] - 00:00: Medical 00 [place] Leukocytos Leukocytos Disease Active 2016-[address] is is 0-21 [facility] - 00:00: Medical 00 [place] Word Word Disease Active 2016-[address] [facility] finding finding 0-21 [facility] - difficulty difficulty 00:00: Me dical 00 [place] Allergies, Adverse Reactions, Alerts Allergy Allergy Status Severity Reaction(s) Onset Inactive Treating Comm ents Source Name Type Date Date Clinician Ciproflo Propensi Active [facility] xacin ty to 6-16 [facility] - adverse 00:00: Medical reaction 00 [place] s Levoflox Propensi Active Diarrhea, [facility] acin ty to Rash 8-18 [facility] - adverse 00:00: Medical reaction 00 [place] s Social History Social Habit Start Date Stop Date Quantity Comments Source History SDOH Alcohol [facility] - Std Drinks [facility] History CTOH Alcohol [facility] - Binge [facility] Sex Assigned At [facility] Cigarettes smoked 2019-06-11 2019-06-[address] [facility] [address] kes - current (pack per 00:00:00 00:00:00 [facility] Center day) - Reported History SDOH Alcohol 2018-10-28 2018-10-28 [address] [facility] - Frequency 00:00:00 00:00:00 [facility] Smoking Status Start Date Stop Date Source Former smoker 2019-06-11 00:00:00 2019-06-11 00:00:00 [facility] Medications Ordered Filled Start Stop Current Ordering Indication Dosage Frequency Signature Comments Components Source Medication Medication Date Date Medication? Clinician (SIG) Name Name psyllium Yes Hemorrhoids 1{packe QD Take [address] [facility] (METAMUCIL 3-26 , t} packet by Benitez s - SUGAR-FREE) 00:00: unspecified mouth Medical 3.4 gram [address] packet type furosemide 2019-0 2020- No 40mg Q.5D Take [address] [facility] (LASIX) 40 3-25 03-25 by mouth 2 Sherine kes - MG tablet 11:08: 00:00 (two) Medica l 17 :00 times Center daily. potassium 2019-0 2020- No 20meq Q.5D Take [address] chloride 20 3-25 03-25 mEq by [facility] - mEq TbER 11:08: 00:00 mouth 2 Medic al 17 :00 (two) Center times daily. furosemide 2020-0 Yes Chronic 40mg QD Take [address] (LASIX) 40 3-25 diastolic tablet (40 [facility] - MG tablet 00:00: heart mg total) Me dical 00 failure by mouth Center ([facility]) daily. potassium 2020-0 Yes Chronic 20meq QD Take [address] chloride 20 3-25 diastolic mEq by L ukes - mEq TbER 00:00: heart mouth Medical 00 failure daily. Center ([facility]) hydrocortis 2020-[address] [facility] one 3-25 , rectally [facility] - (ANUSOL-HC) 00:00: unspecified daily. Medical 2.5 % 00 hemorrhoid Center rectal type cream ferrous 2020-0 Yes Iron 325mg Take [address] [facility] sulfate 325 3-25 deficiency tablet [facility]ukes - (65 FE) MG 00:00: anemia due (325 mg Medical tablet 00 to chronic total) by Ce greger blood loss mouth daily with breakfast. docusate 2020-0 Yes Hemorrhoids 100mg Q.5D Take [address] [facility] sodium 3-25 , capsule [facility]ukes - (COLACE) 00:00: unspecified (100 mg Medical 100 MG 00 hemorrhoid total) by Ce nter capsule type mouth 2 (two) times daily Hold for loose stool.. melatonin 5 2019-0 Yes 10mg QD Take [address] mg Chew 3-23 by mouth [facility] - 11:56: nightly. Medical 51 [place] formoterol 2019-0 Yes 20ug Q.5D Take [address] (PERFOROMIS 3-23 mcg by [facility] - T) 20 mcg/2 11:56: nebulizati Medical mL 51 on 2 (two) Center nebulizer times solution daily. metoprolol 2020-0 Yes 50mg Q.5D Take [address] tartrate 3-23 by mouth 2 [facility] - (LOPRESSOR) 11:56: (two) Medic al 50 MG 51 times Center tablet daily. ipratropium 2020-0 Yes 500ug Take [address] (ATROVENT) 3-23 mcg by [facility] - 0.02 % 11:56: nebulizati Medic al nebulizer 51 on every 6 Cent er solution (six) hours as needed for Wheezing. NITROGLYCER 2019- No Take by [facility] IN ORAL 06-11 mouth. [facility] - 11:56: 00:00 Medical 49 :00 Center mirtazapine 2019- No 15mg QD Take [address] [facility] (REMERON) 06-11 by mouth [facility] - 15 MG 11:56: 00:00 nightly. Medical tablet 45 :00 Center clotrimazol 2019- No Q.5D Apply [facility] e-betametha 06-11 topically Sherine rodriguez - sone 11:56: 00:00 2 (two) Medical (LOTRISONE) 38 :00 times Center 1-0.05 % daily. cream nystatin 2019- Yes Q.5D Apply [facility] (MYCOSTATIN 06-11 topically Sherry es - ) 100,000 11:52: 2 (two) Medic al unit/gram 54 times Center powder daily Under both breasts . dextrometho Yes 1{capsu Take [address] rphan-guaif 3-23 le} capsule by Sherine hardin 11:52: mouth Medical (CORICIDIN 54 every 4 Center HBP CHEST (four) BRIGETTE-COUGH) hours as 10-200 mg needed Cap (cough). guaiFENesin Yes 200mg Take [address] (ROBITUSSIN 3-23 mg by Kedar - ) 100 mg/5 11:52: mouth Medica l mL syrup 54 every 6 Center (six) hours as needed for Cough. HYDROcodone 2019- No 1{tbl} Take [address] -acetaminop 10-28 08-09 tablet by Sherine castaneda (NORCO 20:57: 00:00 mouth 2 Med ical 5-325) 55 :00 (two) Center 5-325 mg times per tablet daily as needed for Pain. apixaban Yes 2.5mg Q.5D Take [address] (ELIQUIS) 6-17 tablet [facility] - 2.5 mg Tab 00:00: (2.5 mg Medi bessy tablet 00 total) by Center mouth 2 (two) times daily. URSODIOL 2018- No Take by ULICES S t ORAL 6-16 06-16 mouth. [facility] - 03:10: 00:00 Medical 12 :00 Center magalyu 2019- No 1{puff} QD Inhale [address] m-omayraantero -16 -16 puff by Benitez zamora - l (ANORO 03:10: 00:00 mouth via Med ical ELLIPTA) 06 :00 inhaler Center 62.5-25 daily. mcg/actuati on DsDv acetaminoph Yes 1{tbl} Take [address] en-codeine 6-16 tablet by Benitez zamora - (TYLENOL 01:55: mouth Medical #3) 300-30 43 every 4 Center mg per (four) tablet hours as needed for Pain. methIMAzole 2016-03 Yes 15mg QD Take 1.[address] (TAPAZOLE) 0-25 tablets [facility]ukes - 10 MG 00:00: (15 mg Medical tablet 00 total) by Center mouth daily. metoprolol 2016-03 2020- No 50mg Q.5D Take [address] (LOPRESSOR) 0-25 03-23 tablets Luke s - 25 MG 00:00: 00:00 (50 mg Medical tablet 00 :00 total) by Center mouth 2 (two) times daily. spironolact 2016-03 2019- No 1{tbl} QD Take [address] one-hydroCH 0-25 08-12 tablet by Sherine rodriguez - LOROthiazid 00:00: 00:00 mouth Medi bessy e 00 :00 daily. Center (ALDACTAZID E) 25-25 mg per tablet diazePAM 2016-03 Yes 5mg Take [address] [facility] (VALIUM) 5 0-21 by mouth 2 Sherry es - MG tablet 05:00: (two) Medical 39 times Center daily as needed for Anxiety. venlafaxine 2016-03 Yes 75mg QD Take [address] [facility] (EFFEXOR-XR 0-21 by mouth Luke s - ) 75 MG 24 05:00: daily. Medic al hr capsule 39 Center predniSONE 2016-03 Yes 5mg QD Take [address] (DELTASONE) 0-21 by mouth Luke s - 5 MG tablet 05:00: daily. Medi bessy 39 Center albuterol 2016-03 Yes 2{puff} Inhale [address] HFA (PROAIR 0-21 puffs by Luke s - HFA) 90 05:00: mouth via Medic al mcg/actuati 38 inhaler Cente r on inhaler every 6 (six) hours as needed for Wheezing. Immunizations Ordered Immunization Filled Immunization Date Status Commen ts Source Name Name Pneumococcal 2017-01-11 Completed [facility] - Polysaccharide 00:00:00 Medical Ce jn (Pneumovax) Vital Signs Vital Name Observation Time Observation Value Comments Source Heart rate 2019-06-14 13:51:00 76 /min [facility] Respiratory rate 2019-06-14 13:51:00 18 /min [facility] Oxygen saturation in 2019-06-14 13:51:00 96 /min [facility] Arterial blood by Medical Ce nter Pulse oximetry Systolic blood 2019-06-14 12:04:00 145 mm[Hg] [facility] Diastolic blood 2019-06-14 12:04:00 84 mm[Hg] [facility] Body temperature 2019-06-14 12:01:[address] [facility] Body weight Measured 2019-06-14 06:00:[address] [facility] BMI 2019-06-14 06:00:00 32.07 kg/m2 [facility] Body height 2018-10-28 17:25:00 154.9 cm [facility] Procedures Procedure Date / Time Performing Clinician Source Performed RHYTHM STRIP - SCAN 2019-06-16 12:01:25 Provider, Default [facility] TRANSFUSION SERVICE REPORT - 2019-06-15 17:51[facility] - [facility] 2019-06-15 11:02:27 Provider, Vanessa [facility] PREPARE LEUKO-REDUCED RBC 2019-06-14 23:54:[address] [facility] TRANSFUSION SERVICE REPORT - 2019-06-14 17:51:38 Provider, Keri [facility] HEMOGLOBIN AND HEMATOCRIT 2019-06-14 03:39:[address] [facility] BASIC METABOLIC PANEL (7) 2019-06-14 03:39:00 Medina, Damari Pattonn [facility] HEMOGLOBIN AND HEMATOCRIT 2019-06-13 20:16:00 Medina, Damari [facility] TRANSFUSE LEUKO-REDUCED RED 2019-06-13 18:21:13 Medina, Damari Patton [facility] BLOOD CELLS [facility] TYPE AND SCREEN, AUTOMATED 2019-06-13 10:18:00 Medina, Damari [facility] HEMOGLOBIN AND HEMATOCRIT 2019-06-13 09:39:00 [facility]T [facility] & AUTO 2019-06-13 03:56:00 Diya Chao [facility] ECG 12-LEAD 2019-06-12 14:03:18 [facility] HEMOGLOBIN AND HEMATOCRIT 2019-06-12 13:45:00 [facility]ON, TIBC, % SAT. (WITHOUT 2019-06-12 13:44:00 [facility] - FERRITIN) [facility] FERRITIN 2019-06-12 13:43:00 [facility] 2D ECHO W/ DOPPLER 2019-06-12 12:37:04 Rodgers-Falnnery [facility] St L ukes - (CW/PW/COLOR) [facility] BASIC METABOLIC PANEL (7) 2019-06-12 04:47:00 Diya Chao [facility] MAGNESIUM 2019-06-12 04:47:00 Diya Chao [facility] CBC W/PLT COUNT & AUTO 2019-06-12 04:47:00 Diya Chao [facility] TROPONIN I 2019-06-11 23:40:00 Mat Chaoflavio [facility] HEMOGLOBIN AND HEMATOCRIT 2019-06-11 23:40:00 Diya Chao [facility] BASIC METABOLIC PANEL (7) 2019-06-11 18:18:00 Diya Chao [facility] MAGNESIUM 2019-06-11 18:18:00 Diya Chao [facility] TROPONIN I 2019-06-11 18:18:00 Diya Chao [facility] CBC W/PLT COUNT & AUTO 2019-06-11 18:18:00 Diya Chao [facility] RHYTHM STRIP - SCAN 2018-11-02 07:40:24 Provider, Vanessa [facility] BASIC METABOLIC PANEL (7) 2018-10-31 04:10:00 [facility]EMO[facility]IN [facility] HEMATOCRIT 2018-10-31 04:10:00 Lorenza [facility] HEMOGLOBIN AND HEMATOCRIT 2018-10-30 06:13:00 ZEN Ravi [facility] BASIC METABOLIC PANEL (7) 2018-10-30 06:13:00 Yanci Britt [facility] TROPONIN I 2018-10-29 14:21:00 Damari Chamberlain [facility] HEMOGLOBIN AND HEMATOCRIT 2018-10-29 14:21:00 Trav [facility] REPORT OF PROCEDURE - 2018-10-29 13:39:22 [facility] POCT-GLUCOSE METER 2018-10-29 13:24:[address] [facility] TISSUE EXAM 2018-10-29 12:28:00 Nyasia [facility] COLONOSCOPY,POLYPECTOMY 2018-10-29 10:00:00 Nyasia [facility] ECG 12-LEAD 2018-10-29 08:10:33 Unknown, Hl7 Doctor [facility] TROPONIN I 2018-10-29 05:39:00 Damari Chamberlain [facility] HEMOGLOBIN AND HEMATOCRIT 2018-10-29 05:38:00 ZEN Ravi I [facility] XR CHEST 1 VIEW 2018-10-29 03:53:00 Damari Chamberlain [facility] PORTABLE/BEDSIDE Medical Center MAGNESIUM 2018-10-29 01:41:00 Damari Chamberlain [facility] TROPONIN I 2018-10-29 01:41:00 Damari Chamberlain [facility] BASIC METABOLIC PANEL (7) 2018-10-29 01:41:[address] [facility] ECG 12-LEAD 2018-10-29 01:21:04 Unknown, Hl7 Doctor [facility] CBC W/PLT COUNT & AUTO 2018-10-28 20:08:00 ULICES Ravi michael - DIFFERENTIAL [facility] RHYTHM STRIP - SCAN 2018-09-07 10:30:32 Provider, Default [facility] RHYTHM STRIP - SCAN 2018-09-07 10:22:01 Provider, Default [facility] TRANSFUSION SERVICE REPORT - 2018-09-05 18:00:11 Provider, Defau lt [facility] CBC (HEMOGRAM ONLY) 2018-09-05 05:01:[address] V[address]quez [facility] BASIC METABOLIC PANEL (7) 2018-09-05 05:00:[address] [facility] THROMBOELASTOGRAPH (TEG) 2018-09-04 19:17:[address] [facility] ABORH, MANUAL 2018-09-04 19:17:[address] [facility] HEMOGLOBIN AND HEMATOCRIT 2018-09-04 18:36:00 Vu Browne [facility] TYPE AND SCREEN, AUTOMATED 2018-09-04 18:36:[address] [facility] HEMOGLOBIN AND HEMATOCRIT 2018-09-04 16:49:00 Sofía Vazquez [facility] TSH/FREE T4 IF INDICATED 2018-09-04 12:22:00 Maria Luz Oliva [facility] T4, FREE 2018-09-04 12:22:00 Maria Luz Oliva [facility] CBC (HEMOGRAM ONLY) 2018-09-04 10:57:[address] [facility] BASIC METABOLIC PANEL (7) 2018-09-04 03:58:[address] [facility] MAGNESIUM 2018-09-04 03:58:[address] [facility] PT/APTT 2018-09-04 03:58:[address] [facility] HEPATIC FUNCTION PANEL 2018-09-04 03:58:[address] [facility] CBC (HEMOGRAM ONLY) 2018-09-04 03:58:[address] [facility] Results Test Description Test Time Test Comments Results Result [facility] e Comments ECG 12 lead 2019-05-22 Interface, External Ris [facility] St 6 In - 06/15/2019 8:59 Sherry - 08:59:32 AM CDTVentricular Rate Me dical 74 BPMAtrial Rate 74 Cent er BPMP-R Interval 176 msQRS Duration 82 msQ-T Interval 434 msQTC Calculation(Bazett) 481 msP [place] 47 degreesR [place] -6 degreesT [place] 94 degreesNormal sinus rhythm with sinus arrhythmiaInferior infarct , age undeterminedT wave abnormality, consider lateral ischemiaAbnormal ECGWhen compared with ECG of 29-OCT-2018 08:10,T wave inversion now evident in Lateral leadsConfirmed by Gurvinder Jason ([id number]) on 06/15/2019 8:59:29 AM Prepare Leuko-Red RBC 2019-06-14 23:54:00 Test Item Value Reference Range Interpretation Comme nts CROSSMATCH (test code = 2264) COMPATIBLE Unit ABO (test code = 0855938) B Pos UNIT NUMBER (test code = 934-0) [id number] Status (test code = 7324923) [place]_TIMEINCHART Blood Bank Product (test code = 2263) RED BLOOD CELLS PRODUCT CODE (test code = 933-2) [id number] [facility] Metabolic [id number] 04:56:00 Test Item Value Reference Range Interpretation Comments Sodium (test code = 140 meq/L 143-016 8874-2) Potassium (test code = 4.0 meq/L 3.5-5.1 2823-3) Chloride (test code = 105 meq/L 98-107 2075-0) CO2 (test code = 28 meq/L 22-29 2028-9) BUN (test code = 15 mg/dL 7-21 3094-0) Creatinine (test code 1.27 mg/dL 0.57-1.25 H = 2160-0) Glucose (test code = 100 mg/dL 70-105 2345-7) Calcium (test code = 9.0 mg/dL 8.4-10.2 84930-7) EGFR (test code = 40 mL/min/1.73 [place] [address]-8) NOT ACCURATE CREATININE CLEARANCE IN PREDICTING GLOMERULAR FILTRATION RATE . ESTIMATED GFR I S NOT APPLICABLE FOR DIALYSIS PATIENTS. CANDIE (test code = CANDIE) Mill Machinist ID - CONNOR M Lab Interpretation Abnormal (test code = 21551-2) [facility] METABOLIC [id number] 04:56:00 Test Item Value Reference Range Interpretation Comments SODIUM (BEAKER) 140 meq/L 136-145 (test code = 381) POTASSIUM (BEAKER) 4.0 meq/L 3.5-5.1 (test code = 379) CHLORIDE (BEAKER) 105 meq/L 98-107 (test code = 382) CO2 (BEAKER) (test 28 meq/L -29 code = 355) BLOOD UREA NITROGEN 15 mg/dL 7-21 (BEAKER) (test code = 354) CREATININE (BEAKER) 1.27 mg/dL 0.57-1.25 H (test code = 358) GLUCOSE RANDOM 100 mg/dL 70-105 (BEAKER) (test code = 652) CALCIUM (BEAKER) 9.0 mg/dL 8.4-10.2 (test code = 697) EGFR (BEAKER) (test 40 mL/min/1.73 ESTIMA EDDIE GFR IS code = 1092) sq m NOT ACCURATE CREATININE CLEARANCE IN PREDICTING GLOMERULAR FILTRATION RATE . ESTIMATED GFR I S NOT APPLICABLE FOR DIALYSIS PATIEN TS. Mill Machinist ID - CONNOR MHemoglobin and [id number] 04:27:00 Test Item Value Reference Range Interpretation Comments Hemoglobin (test code = 8.8 11.2- 15.7 GM/DL L 786-4) Hematocrit (test code = 28.1 % 34.1-44.9 L 4544-3) CANDIE (test code = CANDIE) Mill Machinist ID - [id number] Lab Interpretation (test Abnormal code = 22315-7) [facility] [id number] 04:27:00 Test Item Value Reference Range Interpretation Comments HEMOGLOBIN (BEAKER) (test code = 8.8 GM/DL 11.2-15.7 L 410) HEMATOCRIT (BEAKER) (test code = 28.1 % 34.1-44.9 L 411) Mill Machinist ID - [id number] AND [id number] 20:34:00 Test Item Value Reference Range Interpretation Comments HEMOGLOBIN (BEAKER) (test code = 8.0 GM/DL 11.2-15.7 L 410) HEMATOCRIT (BEAKER) (test code = 25.7 % 34.1-44.9 L 411) Mill Mach[employer]ist ID - [id number] and screen, [id number] 11:10:00 Test Item Value Reference Range Interpretation Comments ABO/RH AUTOMATED (BEAKER) (test B POSITIVE code = 2260) Ab Scrn (test code = 890-4) NEGATIVE [facility] [id number] 09:47:00 Test Item Value Reference Range Interpretation Comments HEMOGLOBIN (BEAKER) (test code = 7.3 GM/DL 11.2-15.7 L 410) HEMATOCRIT (BEAKER) (test code = 24.1 % 34.1-44.9 L 411) Mill Machinist ID - [id number] with platelet count + automated [id number] 05:18:00 Test Item Value Reference Range Interpretation Comments WBC (test code = 6690-2) 15.4 3.5- 10.5 K/L H RBC (test code = 789-8) 2.85 3.93- 5.22 M/L L MCHC (test code = 786-4) 30.5 32.2- 35.5 GM/DL L Hematocrit (test code = 4544-3) 23.6 % 34.1-44.9 L MCV (test code = 787-2) 82.8 fL 79.4-94.8 MCH (test code = 785-6) 25.3 pg 25.6-32.2 L RDW (test code = 788-0) 14.6 % 11.7-14.4 H Platelets (test code = 777-3) 303 150- 450 K/CU MM MPV (test code = 86161-6) 10.0 fL 9.4-12.3 nRBC (test code = 413) 0 0- 0 /100 WBC % Neutros (test code = 429) 74 % % Lymphs (test code = 430) 16 % % Monos (test code = 431) 7 % % Eos (test code = 432) 1 % % Baso (test code = 437) 1 % # Neutros (test code = 670) 11.41 1.56- 6.13 K/L H # Lymphs (test code = 414) 2.45 1.18- 3.74 K/L # Monos (test code = 415) 1.12 0.24- 0.36 K/L H # Eos (test code = 416) 0.20 0.04- 0.36 K/L # Baso (test code = 417) 0.10 0.01- 0.08 K/L H Immature Granulocytes-Relative 1 % 0-1 (test code = 2801) Lab Interpretation (test code = Abnormal 97367-7) [facility] W/PLT COUNT & AUTO [id number] 05:18:00 Test Item Value Reference Range Interpretation Comments WHITE BLOOD CELL COUNT (BEAKER) 15.4 K/ L 3.5-10.5 H (test code = 775) RED BLOOD CELL COUNT (BEAKER) 2.85 M/ L 3.93-5.22 L (test code = 761) HEMOGLOBIN (BEAKER) (test code = 7.2 GM/DL 11.2-15.7 L 410) HEMATOCRIT (BEAKER) (test code = 23.6 % 34.1-44.9 L 411) MEAN CORPUSCULAR VOLUME (BEAKER) 82.8 fL 79.4-94.8 (test code = 753) MEAN CORPUSCULAR HEMOGLOBIN 25.3 pg 25.6-32.2 L (BEAKER) (test code = 751) MEAN CORPUSCULAR HEMOGLOBIN CONC 30.5 GM/DL 32.2-35.5 L (BEAKER) (test code = 752) RED CELL DISTRIBUTION WIDTH 14.6 % 11.7-14.4 H (BEAKER) (test code = 412) PLATELET COUNT (BEAKER) (test 303 K/CU MM 150-450 code = 756) MEAN PLATELET VOLUME (BEAKER) 10.0 fL 9.4-12.3 (test code = 754) NUCLEATED RED BLOOD CELLS 0 /100 WBC 0-0 (BEAKER) (test code = 413) NEUTROPHILS RELATIVE PERCENT 74 % (BEAKER) (test code = 429) LYMPHOCYTES RELATIVE PERCENT 16 % (BEAKER) (test code = 430) MONOCYTES RELATIVE PERCENT 7 % (BEAKER) (test code = 431) EOSINOPHILS RELATIVE PERCENT 1 % (BEAKER) (test code = 432) BASOPHILS RELATIVE PERCENT 1 % (BEAKER) (test code = 437) NEUTROPHILS ABSOLUTE COUNT 11.41 K/ L 1.56-6.13 H (BEAKER) (test code = 670) LYMPHOCYTES ABSOLUTE COUNT 2.45 K/ L 1.18-3.74 (BEAKER) (test code = 414) MONOCYTES ABSOLUTE COUNT (BEAKER) 1.12 K/ L 0.24-0.36 H (test code = 415) EOSINOPHILS ABSOLUTE COUNT 0.20 K/ L 0.04-0.36 (BEAKER) (test code = 416) BASOPHILS ABSOLUTE COUNT (BEAKER) 0.10 K/ L 0.01-0.08 H (test code = 417) IMMATURE GRANULOCYTES-RELATIVE 1 % 0-1 PERCENT (BEAKER) (test code = 2801) 2D Echo W/Doppler(CW/PW/Color)2019-06-12 14:40:00Ejection FractionSLEH ECHO HEARTLAB MKCKESSON CPACSInterface, External Ris In - 06/12/2019 2:40 PM C DTTransthoracic Echocardiography Report (TTE) Demographics Patient Name REFUGIO FOWLER Date of Study 06/12/2019 BARRY Gender Female Visit Number [id number] Race Room Number 2455 Number Date of 1935 Referring Cesar Stewart Physician Age 83 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 All of the LV segments are hyperkinetic . LVE F by Guadarrama's method of disk assessment is increased (>70%) . Grade 1 diastolic dysfunction (impaired relaxation and low-normal LA pressure). Estimated peak systolic PA pressure is 25-30 mmHg (normal range) . Previous Study No prior studies available for comparison. Signature Findings Technical Quality: Technically adequate exam. Left Ventricle LV endocardium isadequately visualized with IV ultrasound enhancing agent. The left ventricle is chamber size (by vol index) is normal (female - LVEDvol - 29-61ml/m2). No evidence of LV hypertrophy. All of the LV segments are hyperkinetic . Global LV systolic function hyperdynamic. LVEF by Guadarrama's method of disk assessment is increased (>70%) . Grade 1 diastolic dysfunction (impaired relaxation and low-normal LA pressure). Left Atrium LA size is mildly enlarged (35-41 ml/m2) . Right Ventricle The right ventricular chamber size and systolic function are within normal limits. Right Atrium RA size is normal. Aortic Valve Mild AoV cusp thickening. AoV thickening primarily involves the non- coronary cups(s). Mild aortic regurgitation. Mitral Valve Mild MV leafletthickening. Mild mitral annular calcification. Tricuspid Valve TV structure is normal. Mild tricuspid regurgitation. Estimated peak systolic PA pressure is 25-30 mmHg (normal range) . Pulmonic Valve PV is not well visualized; function appears normal by Doppler visualized. Aorta Aortic root size (SInus of Valsalva diameter) is indeterminate (not well seen) . Pericardium An echo lucent space is noted consistent with prominent pericardial fat pad. IVC/SVC/PA/PV/Pleural The estimated RA pressureby IVC dynamics 0-5mmHg . Chambers/Structures Left Atrium LA Volume: 68.77 ml LA Vol. Index: 39 ml/m^2 Left Ventricle LVIDd: 3.69 cm LVIDs: 2.3 cm LV Septum Diastolic: 1.1 cm LV PW Diastolic: 1.02 cm LV FS: 37.7 % LVEDV Guadarrama's:86.54 ml LVESV Guadarrama's:18.25 mlLVEDVI: 49 ml/m^2 LVEF Guadarrama's: 78.9 % LVESVI: 10 ml/m^2 LVOT Diameter: 1.93 cm Doppler/Quantitative Measurements Mitral Valve MV Peak E-Wave: 0.76 m/s MV Peak A-Wave: 0.79 m/s E/A Ratio: 0.96 Peak Gradient: 2.3 mmHg Deceleration Time: 185.8 msec MV Steve. Peak: Tissue Doppler E' Septal Velocity: 0.73 m/s E/E': 11.74 E' Lateral Velocity: 0.06 m/s Aortic Valve Peak Velocity: 1.55 m/s Mean Velocity: 1.09 m/s Peak Gradient: 9.55 mmHg Mean Gradient: 5.31 mmHg AV Area (continuity): 2.57 cm^2 AV VTI: 33.57 cm AV DVI: 0.88 LVOT Peak Velocity: 1.32 m/s Peak Gradient: 6.96 mmHg Mean Velocity: 0.88 m/s Mean Gradient: 3.57 mmHg LVOT Diameter: 1.93 cm LVOT VTI: 29.51 cm LVOT Area: 2.93 cm^2 LVOT SV:86.29 ml LVOT CO: 5.95 l/min LVOT CI: 3.38 l/min/m^2 Tricuspid Valve TR Velocity: 2.34 m/s TR Gradient: 21.82 mmHgSt[address] [facility] HospitalFerritin2020-03-23 14:34:00 Test Item Value Reference Range Interpretation Comments Ferritin (test code = 10 ng/mL 5-275 2276-4) CANDIE (test code = CANDIE) Mill Machinist ID - BS Lab Interpretation (test Normal code = 05590-6) [facility] 14:34:00 Test Item Value Reference Range Interpretation Comments FERRITIN (BEAKER) (test code = 361) 10 ng/mL 5-275 Mill Machinist ID - BSIron, TIBC, % sat. (without ferritin)2019-06-12 14:18:00 Test Item Value Reference Range Interpretation Comments Iron (test code = 2498-4) 16.0 ug/dL 40-160 L TIBC (test code = 2500-7) 286 ug/dL 250-450 Iron % Saturation (test code 6 % 20-55 L = 2502-3) CANDIE (test code = CANDIE) Mill Machinist ID - BS Lab Interpretation (test Abnormal code = 20559-9) [facility], TIBC, % SAT. (WITHOUT FERRITIN)2019-06-12 14:18:00 Test Item Value Reference Range Interpretation Comments IRON (BEAKER) (test code = 547) 16.0 ug/dL 40.0-160.0 L TOTAL IRON BINDING CAPACITY 286 ug/dL 250-450 (BEAKER) (test code = 769) IRON % SATURATION (2) (BEAKER) 6 % 20-55 L (test code = 2590) Mill Machinist ID - BSHEMOGLOBIN AND [id number] 13:56:00 Test Item Value Reference Range Interpretation Comments HEMOGLOBIN (BEAKER) (test code = 7.2 GM/DL 11.2-15.7 L 410) HEMATOCRIT (BEAKER) (test code = 23.2 % 34.1-44.9 L 411) Mill Machinist ID - [id number] 06:09:00 Test Item Value Reference Range Interpretation Comments Magnesium (test code = 2.2 mg/dL 1.6-2.6 12713-8) CANDIE (test code = CANDIE) Mill Machinist ID - LEANDRA L Lab Interpretation (test Normal code = 42822-7) [facility] 06:09:00 Test Item Value Reference Range Interpretation Comments MAGNESIUM (BEAKER) (test code = 2.2 mg/dL 1.6-2.6 627) Mill Machinist ID Rambo MOBLEY LBASIC METABOLIC [id number] 06:09:00 Test Item Value Reference Range Interpretation Comments SODIUM (BEAKER) 137 meq/L 136-145 (test code = 381) POTASSIUM (BEAKER) 4.1 meq/L 3.5-5.1 (test code = 379) CHLORIDE (BEAKER) 103 meq/L 98-107 (test code = 382) CO2 (BEAKER) (test 29 meq/L 22-29 code = 355) BLOOD UREA NITROGEN 17 mg/dL 7-21 (BEAKER) (test code = 354) CREATININE (BEAKER) 1.24 mg/dL 0.57-1.25 (test code = 358) GLUCOSE RANDOM 103 mg/dL 70-105 (BEAKER) (test code = 652) CALCIUM (BEAKER) 8.1 mg/dL 8.4-10.2 L (test code = 697) EGFR (BEAKER) (test 41 mL/min/1.73 ESTIMA EDDIE GFR IS code = 1092) sq m NOT ACCURATE CREATININE CLEARANCE IN PREDICTING GLOMERULAR FILTRATION RATE . ESTIMATED GFR I S NOT APPLICABLE FOR DIALYSIS PATIEN TS. Mill Machinist ID - LEANDRA LCBC W/PLT COUNT & AUTO [id number] 05:34:00 Test Item Value Reference Range Interpretation Comments WHITE BLOOD CELL COUNT (BEAKER) 15.9 K/ L 3.5-10.5 H (test code = 775) RED BLOOD CELL COUNT (BEAKER) 2.93 M/ L 3.93-5.22 L (test code = 761) HEMOGLOBIN (BEAKER) (test code = 7.5 GM/DL 11.2-15.7 L 410) HEMATOCRIT (BEAKER) (test code = 24.1 % 34.1-44.9 L 411) MEAN CORPUSCULAR VOLUME (BEAKER) 82.3 fL 79.4-94.8 (test code = 753) MEAN CORPUSCULAR HEMOGLOBIN 25.6 pg 25.6-32.2 (BEAKER) (test code = 751) MEAN CORPUSCULAR HEMOGLOBIN CONC 31.1 GM/DL 32.2-35.5 L (BEAKER) (test code = 752) RED CELL DISTRIBUTION WIDTH 14.1 % 11.7-14.4 (BEAKER) (test code = 412) PLATELET COUNT (BEAKER) (test 313 K/CU MM 150-450 code = 756) MEAN PLATELET VOLUME (BEAKER) 9.9 fL 9.4-12.3 (test code = 754) NUCLEATED RED BLOOD CELLS 0 /100 WBC 0-0 (BEAKER) (test code = 413) NEUTROPHILS RELATIVE PERCENT 74 % (BEAKER) (test code = 429) LYMPHOCYTES RELATIVE PERCENT 16 % (BEAKER) (test code = 430) MONOCYTES RELATIVE PERCENT 7 % (BEAKER) (test code = 431) EOSINOPHILS RELATIVE PERCENT 2 % (BEAKER) (test code = 432) BASOPHILS RELATIVE PERCENT 1 % (BEAKER) (test code = 437) NEUTROPHILS ABSOLUTE COUNT 11.84 K/ L 1.56-6.13 H (BEAKER) (test code = 670) LYMPHOCYTES ABSOLUTE COUNT 2.48 K/ L 1.18-3.74 (BEAKER) (test code = 414) MONOCYTES ABSOLUTE COUNT (BEAKER) 1.08 K/ L 0.24-0.36 H (test code = 415) EOSINOPHILS ABSOLUTE COUNT 0.28 K/ L 0.04-0.36 (BEAKER) (test code = 416) BASOPHILS ABSOLUTE COUNT (BEAKER) 0.10 K/ L 0.01-0.08 H (test code = 417) IMMATURE GRANULOCYTES-RELATIVE 1 % 0-1 PERCENT (BEAKER) (test code = 2801) Troponin [id number] 00:15:00 Test Item Value Reference Range Interpretation Comments Troponin I (test code = 0.01 ng/mL 0-0.03 70350-5) CANDIE (test code = CANDIE) Troponin I (TnI) levels must be interpreted [...] failure, acidosis, acute neurological disease, and persistent tachyarrhythmia.Opera tor ID Rambo MOBLEY L Lab Interpretation (test Normal code = 94552-5) [facility] HospitalTRMELISSAN [id number] 00:15:00 Test Item Value Reference Range Interpretation Comments TROPONIN I (BEAKER) (test code = 0.01 ng/mL 0.00-0.03 397) Troponin I (TnI) levels must be interpreted [...] failure, acidosis, acute neurological disease, and persistent tachyarrhythmia.Mill Machinist ID Rambo MOBLEY LHEMOGLOBIN AND [id number] 23:53:00 Test Item Value Reference Range Interpretation Comments HEMOGLOBIN (BEAKER) (test code = 7.0 GM/DL 11.2-15.7 L 410) HEMATOCRIT (BEAKER) (test code = 22.2 % 34.1-44.9 L 411) Mill Machinist ID - DARELL [id number] 19:14:00 Test Item Value Reference Range Interpretation Comments TROPONIN I (BEAKER) (test code = 0.02 ng/mL 0.00-0.03 397) Troponin I (TnI) levels must be interpreted [...] failure, acidosis, acute neurological disease, and persistent tachyarrhythmia.Mill Machinist ID - RAVIN WBASIC METABOLIC [id number] 19:09:00 Test Item Value Reference Range Interpretation Comments SODIUM (BEAKER) 136 meq/L 136-145 (test code = 381) POTASSIUM (BEAKER) 4.6 meq/L 3.5-5.1 (test code = 379) CHLORIDE (BEAKER) 102 meq/L 98-107 (test code = 382) CO2 (BEAKER) (test 26 meq/L 22-29 code = 355) BLOOD UREA NITROGEN 19 mg/dL 7-21 (BEAKER) (test code = 354) CREATININE (BEAKER) 1.31 mg/dL 0.57-1.25 H (test code = 358) GLUCOSE RANDOM 133 mg/dL 70-105 H (BEAKER) (test code = 652) CALCIUM (BEAKER) 7.9 mg/dL 8.4-10.2 L (test code = 697) EGFR (BEAKER) (test 39 mL/min/1.73 ESTIMA EDDIE GFR IS code = 1092) sq m NOT ACCURATE CREATININE CLEARANCE IN PREDICTING GLOMERULAR FILTRATION RATE . ESTIMATED GFR I S NOT APPLICABLE FOR DIALYSIS PATIEN TS. Mill Machinist ID - RAVIN [id number] 19:07:00 Test Item Value Reference Range Interpretation Comments MAGNESIUM (BEAKER) (test code = 2.1 mg/dL 1.6-2.6 627) Mill Machinist ID - RAVIN WCBC W/PLT COUNT & AUTO [id number] 18:54:00 Test Item Value Reference Range Interpretation Comments WHITE BLOOD CELL COUNT (BEAKER) 15.1 K/ L 3.5-10.5 H (test code = 775) RED BLOOD CELL COUNT (BEAKER) 2.95 M/ L 3.93-5.22 L (test code = 761) HEMOGLOBIN (BEAKER) (test code = 7.6 GM/DL 11.2-15.7 L 410) HEMATOCRIT (BEAKER) (test code = 25.0 % 34.1-44.9 L 411) MEAN CORPUSCULAR VOLUME (BEAKER) 84.7 fL 79.4-94.8 (test code = 753) MEAN CORPUSCULAR HEMOGLOBIN 25.8 pg 25.6-32.2 (BEAKER) (test code = 751) MEAN CORPUSCULAR HEMOGLOBIN CONC 30.4 GM/DL 32.2-35.5 L (BEAKER) (test code = 752) RED CELL DISTRIBUTION WIDTH 14.0 % 11.7-14.4 (BEAKER) (test code = 412) PLATELET COUNT (BEAKER) (test 307 K/CU MM 150-450 code = 756) MEAN PLATELET VOLUME (BEAKER) 9.9 fL 9.4-12.3 (test code = 754) NUCLEATED RED BLOOD CELLS 0 /100 WBC 0-0 (BEAKER) (test code = 413) NEUTROPHILS RELATIVE PERCENT 86 % (BEAKER) (test code = 429) LYMPHOCYTES RELATIVE PERCENT 9 % (BEAKER) (test code = 430) MONOCYTES RELATIVE PERCENT 3 % (BEAKER) (test code = 431) EOSINOPHILS RELATIVE PERCENT 0 % (BEAKER) (test code = 432) BASOPHILS RELATIVE PERCENT 1 % (BEAKER) (test code = 437) NEUTROPHILS ABSOLUTE COUNT 12.92 K/ L 1.56-6.13 H (BEAKER) (test code = 670) LYMPHOCYTES ABSOLUTE COUNT 1.40 K/ L 1.18-3.74 (BEAKER) (test code = 414) MONOCYTES ABSOLUTE COUNT (BEAKER) 0.52 K/ L 0.24-0.36 H (test code = 415) EOSINOPHILS ABSOLUTE COUNT 0.03 K/ L 0.04-0.36 L (BEAKER) (test code = 416) BASOPHILS ABSOLUTE COUNT (BEAKER) 0.11 K/ L 0.01-0.08 H (test code = 417) IMMATURE GRANULOCYTES-RELATIVE 1 % 0-1 PERCENT (BEAKER) (test code = 2801) Tissue [id number] 12:26:00 Test Item Value Reference Range Interpretation Comments Case Report (test code Surgical Pathology = 104) Report Case: [id number] Authorizing Provider: Zarina Murrell MD Collected: 10/29/2018 1228 Ordering Location: [address] Received: 10/31/2018 0811 Service Pathologist: Amanda Guajardo MD Specimens: A) - Polyp, Colon - Sigmoid, via hot snare B) - Polyp, Colon - Rectum, via hot snare, 2 polyps in Jab B DIAGNOSIS (test code = [id number] 3220) FuZzEwMzNcZnRuYmpcdWMx FFwwhnIbMInfj4TaS7ExAc AwMFxhbnNpXGRlZmxhbmcx HBMoVSK5agFqNNLxACufXB ElFCmiDd0lsTOioJtoDiDv GQNai5okqqAWmkxzaAy0s3 sqTNCfSrI7bVJnPVjvQ7ah djFqePEhIMOvLZa6dJ21FD ImoP9sfVCkMTrgbnTaZcS4 NIxxUAWeNnH0QPJdnTNeXH ArS6rlTXTvULxpECNgBFbz lVNcEHC5xFzkl5C6tDFeaR GuoDzhNqCjVvUsTSSIb3Ia VZk7fBbfS2OvSFHxXjS8dI QgUGFyYWdyYXBoIEZvbnQ7 oI14JKvkbtT2qYSvl9Gzv8 4jp662mW1cvEZcCWZ4WTEa HWZffTTjNIOaCOT9IWPvyK RqA4p4AoQbzYHsD8Z6DsCz bOMzY8O1VoUqgBBtO3J0Bu SeeFQiALTfwXTbId7seQCc bDBnzy1wue36ZYM8o4UyzR scYUU5AEY4MwNySb7aoWQp DDNjUF9qHcDejTPyTZQutt 99aWetZFhtwsYggN2bWjTy GLRkyCJrTKVjPT1qeZVbNC GdnU0vxpabDVZcJpDhiiyi NFHjwGggnmYaCi9frNqpQM N2LEflK2mnzC0rItC6HUiq W4wiuW0jGRj3YVgjxNZ1EB BreO6uKQ7ephwsb7wkRdTj HR3epfktp6zeHnBnXU1dpw i1y0rtUjCfXM7tuzmxh8sx NzIwXGhlYWRlcnkwXGZvb3 BrzcszEHPay3KtK4NggAaz F25beKieD59rLWXflIncpG 1ubZabqA4gPwNgQxPwYHot bFxwbGFpblxmMVxmczIwXG qyoemfTEWbAAncH2zgFdNt GNLqvQonJTglp6YoFXVrKO EbCvJhUW5UC5xGMvrlE8kT WK6RLPhaYN1EC1HZX6LIVc ZVF6yBWELENB1EHDjgxCRs VFUmSSYSU5IPCUQcT7ZWAb DNIRJpJX1DSVAlfTBfSFIp KW2KG1AEBIBAJSULJlSYJS kMTWoPFIDWJOHTA5EFGXVV GCOFGkVHPZaNQ34EZuXGUQ NvmuftDHArBp6LS1iANawc PeFVBDVNMRVOU2fQNVNWYD YaXPAJUR7MN58YHEQbKV5K SACTO8CHXEg0LYTvcvYzJL LGSNRHLQOkN3WmXQRTLAfB EcLEJSIVF62XLXBuqhSzDE BOTyBERUZJTklURSBISUdI YGwCYNHHHCQAU9HTDGBUXZ BTRUVOXHBhciAgLSBOTyBN SJdKU38LHlPAXHPZBJXQEx JwuCTtiGlapeGnURtpq9Ry HJbnKJIjBH8keRszRRSxKD 3rEZWnG9lddS4vwhk4IgOn YCGzRsV1ZIOuosI0Fws6CX KzYVbxb6jck5SjNYLiBXk4 gYetPsHpJRVad1hxnvOeKm UhBCTiRGJsIRDcqOTfG708 j9tvl1yjriZdcVM9ARPpFL T4MYpxlnArooL4BSzkgDLi JtO8NDluolEnWHlvcuMiup SxWtb7AFZfK244DZQ0dKtw y2wqYGN0XJKqGAVrYbZwTb 4flHWcI604NNQtYUBFHZOr mHu6DJUpfhIoxlOlvMKSf5 44X965t6mlHSXvqlTgeJlR iyeri0deV471KPDjtGTpig HmIoBjQSQwfLInvIZ5FFQl YB2meipfWHdsYIxwLJGiyy N5MFYfdLIwP8KdYGDcOG5n fgfqXAG9DEvwVYXqRSP2Vw MuDGHsj8Hpbvy6TpOmyd8x lj11MUS8y3XqdUxuVAH5IV L8TvFsVf4liNUyHHPgFO3r MjMznSCyLGEdsc03lNnbTM liEUP3WWZyjmXzc3Lty9ru KhJgyzUtJ2mfG7MrCSShSE KcONAdYoBcyeDdt4Dwc5Fl lHNgwMe2n1rbDJWgCWYcnM efk8oxHJX4FQWyzUCvD0fq wU7oHRSlIV9lvpcvj9nhZZ idCSrgLFUlrPP1drO9HFJp mUVmW3OpsM4wVFQbOUheUH Rayne9DfNoNo5alGWksAyv MFxzYmtwYWdlXHBnbmNvbn RccGduZGVjXHBsYWluXHBs YWluXGYwXGZzMjRccWxcbG FuZzEwMzNcaGljaFxmMVxk LlItTJScKIrnL7wyMrTcIm DeCqh0WZScpJOnQFMbVne5 ZRDigULvDUQCfXwjpT1rPW YctJjspK9lfEP3GJBazgKs gSMXoI0aKCIWtI5aFaJ6Qz MeNaT8BHUqOUllsYSyeV9= CPT Code(s) (test code a3grgBWxYYNgdEXvGoJkKH = 3357) GjVWSkk8bzYSIfwVShUhHd MzNcZnRuYmpcdWMxXGRlZm Pdi0ufj940xITgf6aeTNOf SdN1rXDvEWHiyPCyD638f6 xdn7ewprXtpXC4ZZPuCPX1 BQjtmwUmhfO0IIzxlLMtCk C9DExehiDxAFvbonMpjwGd Fox6XTBvD886GSV1zKgwr9 qvLWK6NHGxWRLmEgSzXk2q aCTsP143NHNoTEWLJYFmhB h0UBRentOoqfIghCTZj165 Y239a6zyLOPywcTfxAsGfv jgw1vzS291LPAqjELpugVo YkSxEQNyrFJeyXF4EOApHS 2outkrVfIfYN6dxoapDpLw QR5qtcw0CqOeUR8qsjgeVi KyUAioGJTfknupFRJdh4Mc tqupIX1rC1Biz8M3mV3djS YiXOAjvWDsUvSrFUHphc8l uDXcAQdna5JsBCW8gmM7tQ XagYGxIMVxOL06Llmik7Jr LhqfJRS8BPHgiwNmr4Pzu4 gwZbBfwdPeU2ksU6RiNITi XAQbCVIlVlJrfvBdb3Cyl0 VebAYuzMp2r0raRHHnMXDr jIeay5uvKEI7GMXgU3S4iH Wie6nkWKwrOHEslTC7coxg IMcySMIxqaR7ozekTNytQO FihZX6aoqeJTpzLEAsHsO2 jbliJQmyDUNeRWR4VEzwk0 34KKZ1QZraPupfKQfeGMEv bmNvbnRccGduZGVjXHBsYW luXHBsYWluXGYwXGZzMjRc eXklrPgyfW3iUcEjHqEbMD uuFA3iRABfH2qjqOUuBWXg VEYlA9ztMvCtaQ4vkMnoYU jrbpCiYVa4EzK4SDxvQewz YXJ9 CLINICAL HISTORY (test r7owlPAaNADqgFPpSsFbVZ code = 3351) LuZXRfj3xvYFRfrKIeDbJt MzNcZnRuYmpcdWMxXGRlZm Xud9vja821rCNai6lgLAQh ScE0sJOfKMAerYQxK951MN QePCfts9foj4RkSCOstHXe v4T1VSIIvljgbNb8aXxdU1 7xn2P6HdisK3koQGBrSMqa BKSsCBiljYXhOOO6QCMoPV V8SPejqaJjhpY2ATyqvKWs MiA4AEg7j3salMgdWJDeQE T8t0esWGpdssJiQR6goc8r lGe2h4xlovJwBFTjXXOqoG VCDVAjQ7LjrCesGh4niBa0 wNmpGujzTEU9Trv3BX3kpv 69enx5iWjvVKLkvolzXrK5 ZGdrCTXwxbdcLLu4AJhgGX JnbDcyMFxtYXJncjcyMFxt YXJndDcyMFxtYXJnYjcyMF tsNZRqONW2DYafg030NTZ3 RQevs1nmf1phaJSgYhm5YQ FiHoQuQgzrWSwbh4Zch7ik LRDtxb4bHWI8kRZgiXrpr4 B5aPUtVRUatREktyZcFZFf JeQ9GDjdBW3tki32IPLmNK C9uw5zbYDonQazqlXxxLWo WAtdB9YzHXPqx342RRQgO5 RmWQDvj5Z2nfRlWtSwNVTi tNK3nzQ3AIZuLDz7bJVdug E8fsHohZDfP4bvkT54GfPj vNIwZ2TdkI97GtJjjYTzV1 OwoA46IrWcnKBtX2LjvH09 CgDolQNkRTBfiFVeCf3eoY NszLZkc0QreKZmEXjhW47k n409EMXwasAbR7blyPUrvz xwbGFpblxmMFxmczIwXHFs XHBsYWluXGYwXGZzMjBccG wyzH0qSgAzAbKmAKUKjdEu RA8cBVAgn4ZmcMQwvOLsad 9dpKV1PHyewME8n9VdMTds YVxwYXJ9 SPECIMEN SOURCE (test s0mksBVdGTOyaHXhCyJeMB code = 3377) RlOPEdd5syWTEgcTMqZcNx MzNcZnRuYmpcdWMxXGRlZm Hsf9bft472wQNss8bwNGYa OrQ9wQHrCJVdvSNgG809ML ArDOqxf9fin2DhFUZlwQLx q7I8YJJZmnogbTb1iXwiE8 2ie5M6YfxrY7ovVFJgAJYg F0FwWR9nBXLqZok8CTV8QN L2CNAqMVZvZ0HlTT7eEMJp uHPqKQb6i1jtqVjvSJOwOE L1s6doRTgcwvGdTK1nun5h fJb7x6dojvLeSDOsOSVykD NISZNvZ5XrbJxlYx3xmZy4 qBomFvmjECC6Clo2JX4pam 46bkg9rTywOZWjfupfIcF1 GNzuILUsqcgjKKi0AGclCP JnbDcyMFxtYXJncjcyMFxt YXJndDcyMFxtYXJnYjcyMF hjTZDqROL4IImou897YHI8 XFvqc5lgg2vdfIFlAqi0CL XqTyPiQycnHFpwc9Sqf8yg KQAwvt2mPPH4qTFybMhlw7 M3zRThLDWndYVgzkMiTWKd UnL2ZKfaZV9hrt78EOWeGD U9lp2vfFKfiRlwgwYyzOTr TDtyI7XzJKMyc120WXMpF0 ZzLRYko5Y9wiVzJnFaQHRq kXU2alS0UYKxKEz0bJRjvv Z4dkSvjCAjG1mnzG54HuYo xBNjW0JumL51DgChqOPhS0 HilO02UqNbiMCfC6KmdL48 NoDgbEPxAZSklXUoYh0uxB XroKAsv9MtxMJoKZpzB50h j443VTDcvoKjH1pbtRYbwl lqpFFnwfeqVFhhgdV1LWSh XHBsYWluXGYxXGZzMjBcbG FuZzEwMzNcaGljaFxmMVxk RrEkETRlPRruE6ptPiTtVr HfOWWWKmKCb7o0bIqtG73g b07pVQHxqBlql9dfApGHTi TTe3f6fWlzN95ec55qQXHr SYA9gX9pENLxfG3rkXEqUH xwYXJ9 GROSS DESCRIPTION (test s6woqKWlOYTvgDZdLbDlFB code = 3366) JhYCNfa9jhSOKrbAZeNaBo MzNcZnRuYmpcdWMxXGRlZm Xsm0dgw745rCFts7nnOGEl ZyP0pZOjDIFvtQQbQ598OZ YjLBqjq9oqj3NeSKXliGGc q1N1GGQLtotcrYd7sPogK5 7ec5K5MhxjI9lhFXHxPHph YARcCYfyjIZuCWI0EJWfTV K4HJclixWsomF4SFdxvFRv VaN1PXz7r7qmrJiqYFJwZU M2r3nmQQjplmCxWP0zrl6d hFk3c7cimyNnOEPoSIFxgL HSYVApN3JdvIdqKo8etOa1 fXdjSjgwJDA3Dbu9GF4eho 93dcs9qZzfIDQidkkgQsX2 SWatWQXohaagCZe6YGzoST JnbDcyMFxtYXJncjcyMFxt YXJndDcyMFxtYXJnYjcyMF kbLGIoLAN2SVrgk146CTU8 MWdbt7uej4jteTWmCrw3AW AsSjPiJrfpNWacq4Pca9wh TFCukw3gRNU0fMPckQdui9 T4hTSpMHGiaTBwxgDgGSLy ZmJ4HCseSI4skq60HHAlIN N1oo5sfBObdZtqbnIfcQRl JBveV1LkUHCij065GWEzL3 VwDYWwh4A2meNoHnZaZRNk xBP9ygC3LURdIZs4bJEgqq U5kcGxzSDrV2zldO92KeYo gYHtB3PgzY04TuQaaVWxW7 SfvH04QaSocUAgL9TmmK40 SlWbxMJbKONamGHuXa3csZ EwtWRcn1GxeZPeHVepV60k x644ENXrjiEeG5rvlYVsre xwbGFpblxmMFxmczIwXHFs XHBsYWluXGYwXGZzMjBccG fhyL1uCuYjOtMaTJOZCyWe eFgwsJ0lSjJwOgTtSOJSUY GhkMVrMOSlycZhx3KnOGcx biBsYWJlbGVkIHdpdGggdG uoQCBxyXqjiwCohlSbVO9s CFIxV9Xsg1Baj46pziIeUy VyIGFuZFxwbGFpblxmMFxm qhYgXIUdnL7zxTFzYAPxjR 4jZN2da1ffeI9eGWHcgQVv YSAwLjcgeCAwLjUgeCAwLj EfW31aTAYyFInbMDRaIJKn VoPxpOPhOKn1fLPzDJCpQV luXGYwXGZzMjAgIHBpbmsg tW7xdUOsICUxAIFfSPUqUF ddYRfqr5UzKJUacYZlWZ3w LYGkEQUkyAVsuY7qpmPsef YztNQzX0PcFQUfpwAeCR05 oVWcfEbwl8TerGg8aNQhBJ luIEExLiBccGFyXHBhciBC NqBpaBbsfJ2aNmMdOsVlWU IXGXTqwLUqNXFelfFch9Cv YWxpbiBsYWJlbGVkIHdpdG ggdGhlIHBhdGllbnQncyBu IE8jPWWuU4Jqg5Rsy05hiw VtYmVyIGFuZFxwbGFpblxm VIeyddExTSXibN3ykUFbON OskQ4dEC1ulvRrcVZsDjDn enVyCDLoQVC0ZNOvCKR3NQ ClXTRjnLWdZ3usTSaihNKs v5XdeHVtxWhxrDLvZGbhvG FpblxmMVxmczIwIGlycmVn dWxhclxwbGFpblxmMFxmcz HgVNE5BB6txIqjvcCjm8n8 kL5sZGC7kFBecQZqIsCmE3 0aptMcShTNgMCtcNPsU1Fw QKZsx3D5TEVkJIBfFMNtA8 Woi88aRULcgvNyvFccAKZj ZWNpbWVuIGlzIGVudGlyZW d4PXT0Lu2dpRYzZZPlemVZ YV9JBe3yLUEHD0MoXOniQH J9 MICROSCOPIC DESCRIPTION f6iwoBGdXJWhpFLpUkBeCC (test code = 3371) XcNYAur4dkUIWkmNCdMbBx MzNcZnRuYmpcdWMxXGRlZm Ehk1iqe170yRKrm1dfYCCe XpP3dTVdJDQadRAjU866g0 eij4bfizZkiMX3SGEoVSX0 OMsrevDayfE4IYnddBEkSm K8XWmkbsEnONmodoFftjKo Zmx5CLUtC601FNT1tBbon3 lhCYY9LRExAXGkOsYuAj1s qSWyE482GUGmVAPXBRDxwM n7DCHcwwDhikGgaQRZf002 I002h1vjWTOlufHmlBzLuc enk7sgO148KSUuuDZzzgHp TcFoIRDbrZOlxZA2KSVvQK 9ymmtzRtGcCM2qfnqqGcXb LB5edeh3OwOsHR1abcuaLa EfYUkqFXWpktlfPNNsp5Cz prkvBR0sF8Hoc4P2xA5ucJ CvDNMfeSMgNcZaLCIcqu9d xISbBCnyq1NkLWL1ilI0mA EzdGYcJARcPG56Bhgeq3Nc FpqqMTY6LMEteaFoz3Rpk0 clUmWkqhEcC5vwI5HuNDOv WSDwGTSoGcDntlZwx1Nkw8 DuiVQrfXg3l8jsBRVzETPk eVqdk9kqXAH2GBQbX3Y6mR Hbu9lvDLbkCYYzgCG9cjqo QMrvQVHsdvO0bbfpORteOP DcmJP4cxzgSQddSVQdEaV0 iaigRBdeVRYfMJC7GVeps3 19XGE3ZJswJrabHOrbMUCs bmNvbnRccGduZGVjXHBsYW luXHBsYWluXGYwXGZzMjRc xTyxoFiljD9xPzMxKvQiQO xoWL8cGCNaL8wngEVaITDb TLQzW4kzTjMjyI4rjDslSI efyaIjXHRTOrMWBr6AJOom YXJ9 [facility] [id number] 12:26:00Surgical Pathology Report Case: [id number] Authorizing Provider: Zarina Murrell MD Collected: 10/29/2018 1228 Ordering Location: [address] Received: 10/31/2018 0811 Service Pathologist: Amanda Guajardo MD Specimens: A) -Polyp, Colon - Sigmoid, via hot snare B) - Polyp, Colon - Rectum, via hot snare, 2 polyps in Jab B A.COLON, SIGMOID, ENDOSC OPIC POLYPECTOMY: - SESSILE SERRATED POLYP - NEGATIVE FOR HIGH GRADE DYSPLASIA OR MALIGNANCYB.COLON,RECTUM, POLYP X 2, ENDOSCOPIC POLYPECTOMY: - PIECES OF TUBULAR ADENOMA - NO DEFINITE HIGH GRADE DYSPLASIA SEEN - NO MALIGNANCY PRESENT Signing Pathologist Direct Phone Line: [phone] signed by Amanda Guajardo MD on 2018 at 12:26 [id number] 2Pre and postop diagnosis: hematocheziaA. Polyp, [...] entirely submitted in B1-B3. CG/pl PERFORMEDBASIC METABOLIC PANEL 2018-10-31 05:20:00 Test Item Value Reference Range Interpretation Comments SODIUM (BEAKER) 136 meq/L 136-145 (test code = 381) POTASSIUM (BEAKER) 4.1 meq/L 3.5-5.1 (test code = 379) CHLORIDE (BEAKER) 102 meq/L 98-107 (test code = 382) CO2 (BEAKER) (test 26 meq/L 22-29 code = 355) BLOOD UREA NITROGEN 21 mg/dL 7-21 (BEAKER) (test code = 354) CREATININE (BEAKER) 1.15 mg/dL 0.57-1.25 (test code = 358) GLUCOSE RANDOM 91 mg/dL 70-105 (BEAKER) (test code = 652) CALCIUM (BEAKER) 8.7 mg/dL 8.4-10.2 (test code = 697) EGFR (BEAKER) (test 45 mL/min/1.73 ESTIMA EDDIE GFR IS code = 1092) sq m NOT ACCURATE CREATININE CLEARANCE IN PREDICTING GLOMERULAR FILTRATION RATE . ESTIMATED GFR I S NOT APPLICABLE FOR DIALYSIS PATIEN TS. HEMOGLOBIN AND [id number] 04:49:00 Test Item Value Reference Range Interpretation Comments HEMOGLOBIN (BEAKER) (test code = 10.0 GM/DL 11.2-15.7 L 410) HEMATOCRIT (BEAKER) (test code = 33.3 % 34.1-44.9 L 411) BASIC METABOLIC [id number] 07:15:00 Test Item Value Reference Range Interpretation Comments SODIUM (BEAKER) 138 meq/L 136-145 (test code = 381) POTASSIUM (BEAKER) 3.8 meq/L 3.5-5.1 (test code = 379) CHLORIDE (BEAKER) 103 meq/L 98-107 (test code = 382) CO2 (BEAKER) (test 27 meq/L 22-29 code = 355) BLOOD UREA NITROGEN 26 mg/dL 7-21 H (BEAKER) (test code = 354) CREATININE (BEAKER) 1.21 mg/dL 0.57-1.25 (test code = 358) GLUCOSE RANDOM 106 mg/dL 70-105 H (BEAKER) (test code = 652) CALCIUM (BEAKER) 8.8 mg/dL 8.4-10.2 (test code = 697) EGFR (BEAKER) (test 42 mL/min/1.73 ESTIMA EDDIE GFR IS code = 1092) sq m NOT ACCURATE CREATININE CLEARANCE IN PREDICTING GLOMERULAR FILTRATION RATE . ESTIMATED GFR I S NOT APPLICABLE FOR DIALYSIS PATIEN TS. HEMOGLOBIN AND [id number] 06:27:00 Test Item Value Reference Range Interpretation Comments HEMOGLOBIN (BEAKER) (test code = 9.6 GM/DL 11.2-15.7 L 410) HEMATOCRIT (BEAKER) (test code = 31.4 % 34.1-44.9 L 411) TROPONIN [id number] 14:57:00 Test Item Value Reference Range Interpretation Comments TROPONIN I (BEAKER) (test code = 0.02 ng/mL 0.00-0.03 397) Troponin I (TnI) levels must be interpreted [...] acute neurological disease, and persistent tachyarrhythmia.HEMOGLOBIN AND [id number] 14:30:00 Test Item Value Reference Range Interpretation Comments HEMOGLOBIN (BEAKER) (test code = 10.4 GM/DL 11.2-15.7 L 410) HEMATOCRIT (BEAKER) (test code = 33.6 % 34.1-44.9 L 411) POC-Glucose [id number] 13:29:00 Test Item Value Reference Range Interpretation Comments POC-Glucose Meter (test 123 mg/dL 70-110 H TEST ED AT [facility] code = 1538) [address] [place] [address] Lab Interpretation (test Abnormal code = 09236-4) [facility] [id number] 13:29:00 Test Item Value Reference Range Interpretation Comments POC-GLUCOSE METER 123 mg/dL 70-110 H TESTED AT [facility] [address] (KAT) (test code = [place] 1538) [address] TROPONIN [id number] 07:54:00 Test Item Value Reference Range Interpretation Comments TROPONIN I (KAT) (test code = 397) < ng/mL 0.00-0.03 [...] and persistent tachyarrhythmia.RAD, CHEST, 1 VIEW, NON [id number] 06:59:00Reason for exam:->chest painShould this be performed [...] or pneumothorax. No acute bony abnormality. Signed: Sergio Munoz MDReport Verified Date/Time: 10/29/2018 06:59:47 Reading Location: [facility] B1 C013Y CT Body Reading Room XR chest 1 view portable / bedside 2018-10-29 06:59:00Interface, External Ris In - 10/29/2018 7:02 AM CDTFINAL REPORT Chest, one view. HISTORY: chest pain COMPARISON: None IMPRESSION: Tortuous thoracic aorta with a prominent ascending thoracic aorta. Consider a CTA on for further evaluation. The cardiac silhouette is near the upper limit of normal in size. Pulmonary venous congestion. Streaky opacities in the right base are likely due to atelectasis. No pleural effusion or pneumothorax. No acute bony abnormality. Signed: Sergio Munoz MDReport Verified Date/Time: 10/29/2018 06:59:47 Reading [facility] [facility] Body Reading Room [facility]GLOB[facility] AND [id number] 06:05:00 Test Item Value Reference Range Interpretation Comments HEMOGLOBIN (BEAKER) (test code = 10.9 GM/DL 11.2-15.7 L 410) HEMATOCRIT (BEAKER) (test code = 36.0 % 34.1-44.9 411) BASIC METABOLIC [id number] 03:58:00 Test Item Value Reference Range Interpretation Comments SODIUM (BEAKER) 138 meq/L 136-145 (test code = 381) POTASSIUM (BEAKER) 4.7 meq/L 3.5-5.1 (test code = 379) CHLORIDE (BEAKER) 98 meq/L 98-107 (test code = 382) CO2 (BEAKER) (test 27 meq/L 22-29 code = 355) BLOOD UREA NITROGEN 27 mg/dL 7-21 H (BEAKER) (test code = 354) CREATININE (BEAKER) 1.43 mg/dL 0.57-1.25 H (test code = 358) GLUCOSE RANDOM 110 mg/dL 70-105 H (BEAKER) (test code = 652) CALCIUM (BEAKER) 9.7 mg/dL 8.4-10.2 (test code = 697) EGFR (BEAKER) (test 35 mL/min/1.73 ESTIMA EDDIE GFR IS code = 1092) sq m NOT ACCURATE CREATININE CLEARANCE IN PREDICTING GLOMERULAR FILTRATION RATE . ESTIMATED GFR I S NOT APPLICABLE FOR DIALYSIS PATIEN TS. TROPONIN [id number] 02:12:00 Test Item Value Reference Range Interpretation Comments TROPONIN I (BEAKER) (test code = 0.01 ng/mL 0.00-0.03 397) Troponin I (TnI) levels must be interpreted [...] failure, acidosis, acute neurological disease, and persistent tachyarrhythmia.[id number] 02:06:00 Test Item Value Reference Range Interpretation Comments MAGNESIUM (BEAKER) (test code = 2.1 mg/dL 1.6-2.6 627) CBC W/PLT COUNT & AUTO [id number] 20:23:00 Test Item Value Reference Range Interpretation Comments WHITE BLOOD CELL COUNT (BEAKER) 13.9 K/ L 3.5-10.5 H (test code = 775) RED BLOOD CELL COUNT (BEAKER) 4.06 M/ L 3.93-5.22 (test code = 761) HEMOGLOBIN (BEAKER) (test code = 10.5 GM/DL 11.2-15.7 L 410) HEMATOCRIT (BEAKER) (test code = 34.3 % 34.1-44.9 411) MEAN CORPUSCULAR VOLUME (BEAKER) 84.5 fL 79.4-94.8 (test code = 753) MEAN CORPUSCULAR HEMOGLOBIN 25.9 pg 25.6-32.2 (BEAKER) (test code = 751) MEAN CORPUSCULAR HEMOGLOBIN CONC 30.6 GM/DL 32.2-35.5 L (BEAKER) (test code = 752) RED CELL DISTRIBUTION WIDTH 13.3 % 11.7-14.4 (BEAKER) (test code = 412) PLATELET COUNT (BEAKER) (test 326 K/CU MM 150-450 code = 756) MEAN PLATELET VOLUME (BEAKER) 9.7 fL 9.4-12.3 (test code = 754) NUCLEATED RED BLOOD CELLS 0 /100 WBC 0-0 (BEAKER) (test code = 413) NEUTROPHILS RELATIVE PERCENT 76 % (BEAKER) (test code = 429) LYMPHOCYTES RELATIVE PERCENT 16 % (BEAKER) (test code = 430) MONOCYTES RELATIVE PERCENT 5 % (BEAKER) (test code = 431) EOSINOPHILS RELATIVE PERCENT 1 % (BEAKER) (test code = 432) BASOPHILS RELATIVE PERCENT 1 % (BEAKER) (test code = 437) NEUTROPHILS ABSOLUTE COUNT 10.66 K/ L 1.56-6.13 H (BEAKER) (test code = 670) LYMPHOCYTES ABSOLUTE COUNT 2.28 K/ L 1.18-3.74 (BEAKER) (test code = 414) MONOCYTES ABSOLUTE COUNT (BEAKER) 0.74 K/ L 0.24-0.36 H (test code = 415) EOSINOPHILS ABSOLUTE COUNT 0.13 K/ L 0.04-0.36 (BEAKER) (test code = 416) BASOPHILS ABSOLUTE COUNT (BEAKER) 0.08 K/ L 0.01-0.08 (test code = 417) IMMATURE GRANULOCYTES-RELATIVE 0 % 0-1 PERCENT (BEAKER) (test code = 2801) BASIC METABOLIC [id number] 05:58:00 Test Item Value Reference Range Interpretation Comments SODIUM (BEAKER) 139 meq/L 136-145 (test code = 381) POTASSIUM (BEAKER) 4.3 meq/L 3.5-5.1 (test code = 379) CHLORIDE (BEAKER) 97 meq/L 98-107 L (test code = 382) CO2 (BEAKER) (test 34 meq/L 22-29 H code = 355) BLOOD UREA NITROGEN 16 mg/dL 7-21 (BEAKER) (test code = 354) CREATININE (BEAKER) 0.81 mg/dL 0.57-1.25 (test code = 358) GLUCOSE RANDOM 126 mg/dL 70-105 H (BEAKER) (test code = 652) CALCIUM (BEAKER) 9.8 mg/dL 8.4-10.2 (test code = 697) EGFR (BEAKER) (test 67 mL/min/1.73 ESTIMA EDDIE GFR IS code = 1092) sq m NOT ACCURATE CREATININE CLEARANCE IN PREDICTING GLOMERULAR FILTRATION RATE . ESTIMATED GFR I S NOT APPLICABLE FOR DIALYSIS PATIEN TS. CBC (Hemogram only)2018-09-05 05:33:00 Test Item Value Reference Range Interpretation Comments WBC (test code = 6690-2) 14.3 3.5- 10.5 K/L H RBC (test code = 789-8) 3.26 3.93- 5.22 M/L L MCHC (test code = 786-4) 30.4 32.2- 35.5 GM/DL L Hematocrit (test code = 4544-3) 29.6 % 34.1-44.9 L MCV (test code = 787-2) 90.8 fL 79.4-94.8 MCH (test code = 785-6) 27.6 pg 25.6-32.2 RDW (test code = 788-0) 12.7 % 11.7-14.4 Platelets (test code = 777-3) 302 150- 450 K/CU MM MPV (test code = 16368-4) 10.7 fL 9.4-12.3 nRBC (test code = 413) 0 0- 0 /100 WBC Lab Interpretation (test code = Abnormal 54483-1) [facility] (HEMOGRAM ONLY)2018-09-05 05:33:00 Test Item Value Reference Range Interpretation Comments WHITE BLOOD CELL COUNT (BEAKER) 14.3 K/ L 3.5-10.5 H (test code = 775) RED BLOOD CELL COUNT (BEAKER) 3.26 M/ L 3.93-5.22 L (test code = 761) HEMOGLOBIN (BEAKER) (test code = 9.0 GM/DL 11.2-15.7 L 410) HEMATOCRIT (BEAKER) (test code = 29.6 % 34.1-44.9 L 411) MEAN CORPUSCULAR VOLUME (BEAKER) 90.8 fL 79.4-94.8 (test code = 753) MEAN CORPUSCULAR HEMOGLOBIN 27.6 pg 25.6-32.2 (BEAKER) (test code = 751) MEAN CORPUSCULAR HEMOGLOBIN CONC 30.4 GM/DL 32.2-35.5 L (BEAKER) (test code = 752) RED CELL DISTRIBUTION WIDTH 12.7 % 11.7-14.4 (BEAKER) (test code = 412) PLATELET COUNT (BEAKER) (test 302 K/CU MM 150-450 code = 756) MEAN PLATELET VOLUME (BEAKER) 10.7 fL 9.4-12.3 (test code = 754) NUCLEATED RED BLOOD CELLS 0 /100 WBC 0-0 (BEAKER) (test code = 413) Thromboelastograph (TEG)2018-09-04 20:35:00 Test Item Value Reference Range Interpretation Comments TEG Activated Clotting Time (test 4.5 4.0- 7.0 minutes code = 97407-7) TEG Fibrinogen Activity (test 78.3 61.0- 73.0 degrees H code = 15220-5) TEG Platelet Aggregation (test 71.4 55.0- 65.0 MM H code = 76171-9) TEG Fibrinolysis (test code = 1.0 % 0-5 43022-1) TEG-H Activated Clotting Time 4.5 4.0- 7.0 minutes (test code = 1411) TEG-H Fibrinogen Activity (test 75.3 61.0- 73.0 degrees H code = 1412) TEG-H Platelet Aggregation (test 62.9 55.0- 65.0 MM code = 1413) TEG-H Fibrinolysis (test code = 2.2 % 0-5 1414) Lab Interpretation (test code = Abnormal 21525-6) [facility]2018-09-04 20:35:00 Test Item Value Reference Range Interpretation Comments TEG ACTIVATED CLOTTING TIME 4.5 minutes 4.0-7.0 (BEAKER) (test code = 1407) TEG FIBRINOGEN ACTIVITY (BEAKER) 78.3 degrees 61.0-73.0 H (test code = 1408) TEG PLT. AGGREGATION (BEAKER) 71.4 MM 55.0-65.0 H (test code = 1409) TEG FIBRINOLYSIS (BEAKER) (test 1.0 % 0.0-5.0 code = 1410) TGH ACTIVATED CLOTTING TIME 4.5 minutes 4.0-7.0 (BEAKER) (test code = 1411) TGH FIBRINOGEN ACTIVITY (BEAKER) 75.3 degrees 61.0-73.0 H (test code = 1412) TGH PLT. AGGREGATION (BEAKER) 62.9 MM 55.0-65.0 (test code = 1413) TGH FIBRINOLYSIS (BEAKER) (test 2.2 % 0.0-5.0 code = 1414) [place] [id number] 19:36:00 Test Item Value Reference Range Interpretation Comments ABO Grouping (test code = 2588) B Rh Factor (test code = 2589) POS [facility] [id number] 18:46:00 Test Item Value Reference Range Interpretation Comments HEMOGLOBIN (BEAKER) (test code = 8.6 GM/DL 11.2-15.7 L 410) HEMATOCRIT (BEAKER) (test code = 27.7 % 34.1-44.9 L 411) HEMOGLOBIN AND [id number] 17:10:00 Test Item Value Reference Range Interpretation Comments HEMOGLOBIN (BEAKER) (test code = 7.6 GM/DL 11.2-15.7 L 410) HEMATOCRIT (BEAKER) (test code = 24.4 % 34.1-44.9 L 411) T4, [id number] 14:16:00 Test Item Value Reference Range Interpretation Comments Free T4 (test code = 3024-7) 1.14 ng/dL 0.7-1.48 Lab Interpretation (test code = Normal 83701-4) [facility] [id number] 14:16:00 Test Item Value Reference Range Interpretation Comments FREE T4 (BEAKER) (test code = 655) 1.14 ng/dL 0.70-1.48 TSH/Free T4 If [id number] 13:15:00 Test Item Value Reference Range Interpretation Comments TSH (test code = 83149-3) 0.01 0.35- 4.94 uIU/mL L Lab Interpretation (test code = Abnormal 10543-5) [facility] T4 IF [id number] 13:15:00 Test Item Value Reference Range Interpretation Comments THYROID STIMULATING HORMONE 0.01 uIU/mL 0.35-4.94 L (BEAKER) (test code = 772) CBC (HEMOGRAM ONLY)2018-09-04 11:11:00 Test Item Value Reference Range Interpretation Comments WHITE BLOOD CELL COUNT (BEAKER) 7.7 K/ L 3.5-10.5 (test code = 775) RED BLOOD CELL COUNT (BEAKER) 3.31 M/ L 3.93-5.22 L (test code = 761) HEMOGLOBIN (BEAKER) (test code = 9.0 GM/DL 11.2-15.7 L 410) HEMATOCRIT (BEAKER) (test code = 29.7 % 34.1-44.9 L 411) MEAN CORPUSCULAR VOLUME (BEAKER) 89.7 fL 79.4-94.8 (test code = 753) MEAN CORPUSCULAR HEMOGLOBIN 27.2 pg 25.6-32.2 (BEAKER) (test code = 751) MEAN CORPUSCULAR HEMOGLOBIN CONC 30.3 GM/DL 32.2-35.5 L (BEAKER) (test code = 752) RED CELL DISTRIBUTION WIDTH 12.5 % 11.7-14.4 (BEAKER) (test code = 412) PLATELET COUNT (BEAKER) (test 292 K/CU MM 150-450 code = 756) MEAN PLATELET VOLUME (BEAKER) 10.5 fL 9.4-12.3 (test code = 754) NUCLEATED RED BLOOD CELLS 0 /100 WBC 0-0 (BEAKER) (test code = 413) Hepatic function [id number] 04:37:00 Test Item Value Reference Range Interpretation Comments Protein, Total (test code = 2885-2) 7.7 6.0- 8.3 gm/dL Albumin (test code = 70766-0) 3.5 g/dL 3.5-5 Total Bilirubin (test code = 0.3 mg/dL 0.2-1.2 1974-2) Bilirubin, Direct (test code = 0.2 mg/dL 0.1-0.5 1967-7) Alkaline Phosphatase (test code = 72 U/L 40-150 6768-6) AST (test code = 1920-8) 16 U/L 5-34 ALT (test code = 1742-6) 10 U/L 6-55 Lab Interpretation (test code = Normal 72971-3) [facility] 04:37:00 Test Item Value Reference Range Interpretation Comments MAGNESIUM (BEAKER) (test code = 1.8 mg/dL 1.6-2.6 627) BASIC METABOLIC [id number] 04:37:00 Test Item Value Reference Range Interpretation Comments SODIUM (BEAKER) 137 meq/L 136-145 (test code = 381) POTASSIUM (BEAKER) 4.4 meq/L 3.5-5.1 (test code = 379) CHLORIDE (BEAKER) 94 meq/L 98-107 L (test code = 382) CO2 (BEAKER) (test 35 meq/L 22-29 H code = 355) BLOOD UREA NITROGEN 14 mg/dL 7-21 (BEAKER) (test code = 354) CREATININE (BEAKER) 0.88 mg/dL 0.57-1.25 (test code = 358) GLUCOSE RANDOM 183 mg/dL 70-105 H (BEAKER) (test code = 652) CALCIUM (BEAKER) 9.2 mg/dL 8.4-10.2 (test code = 697) EGFR (BEAKER) (test 61 mL/min/1.73 ESTIMA EDDIE GFR IS code = 1092) sq m NOT ACCURATE CREATININE CLEARANCE IN PREDICTING GLOMERULAR FILTRATION RATE . ESTIMATED GFR I S NOT APPLICABLE FOR DIALYSIS PATIEN TS. HEPATIC FUNCTION [id number] 04:37:00 Test Item Value Reference Range Interpretation Comments TOTAL PROTEIN (BEAKER) (test code = 7.7 gm/dL 6.0-8.3 770) ALBUMIN (BEAKER) (test code = 1145) 3.5 g/dL 3.5-5.0 BILIRUBIN TOTAL (BEAKER) (test code 0.3 mg/dL 0.2-1.2 = 377) BILIRUBIN DIRECT (BEAKER) (test 0.2 mg/dL 0.1-0.5 code = 706) ALKALINE PHOSPHATASE (BEAKER) (test 72 U/L 40-150 code = 346) AST (SGOT) (BEAKER) (test code = 16 U/L 5-34 353) ALT (SGPT) (BEAKER) (test code = 10 U/L 6-55 347) [id number] 04:33:00 Test Item Value Reference Range Interpretation Comments Protime (test code = 15.4 11.9- 14.2 H 5902-2) seconds INR (test code = 1.3 <=5.9 6301-6) PTT (test code = 38.0 22.5- 36.0 H 33926-4) seconds CANDIE (test code = CANDIE) Effective 08/17/2018: PT Reference Range ChangeNew: 11.9-14.2 Previous: 11.7-14.7 RECOMMENDED COUMADIN/WARFARIN INR THERAPY RANGESSTANDARD DOSE: 2.0-3.0 Includes: PROPHYLAXIS for venous thrombosis, systemic embolization; TREATMENT for venous thrombosis and/or pulmonary embolus.HIGH RISK: Target INR is 2.5-3.5 for patients wiht mechanical heart valves. Lab Interpretation Abnormal (test code = 85546-0) [id number] 04:33:00 Test Item Value Reference Range Interpretation Comments PROTIME (BEAKER) (test code = 15.4 seconds 11.9-14.2 H 759) INR (BEAKER) (test code = 370) 1.3 <=5.9 PARTIAL THROMBOPLASTIN TIME 38.0 seconds 22.5-36.0 H (BEAKER) (test code = 760) Effective 08/17/2018: PT Reference Range ChangeNew: 11.9-14.2 Previous: 11.7- 14.7RECOMMENDED COUMADIN/WARFARIN INR THERAPY RANGESSTANDARD DOSE: 2.0-3.0 Includes: PROPHYLAXIS for venous thrombosis, systemic embolization; TREATMENT for venous thrombosis and/or pulmonary embolus.HIGH RISK: Target INR is2.5-3.5 for patients wiht mechanical heart valves.CBC (HEMOGRAM ONLY)2018-09-04 04:11:00 Test Item Value Reference Range Interpretation Comments WHITE BLOOD CELL COUNT (BEAKER) 10.9 K/ L 3.5-10.5 H (test code = 775) RED BLOOD CELL COUNT (BEAKER) 3.79 M/ L 3.93-5.22 L (test code = 761) HEMOGLOBIN (BEAKER) (test code = 10.5 GM/DL 11.2-15.7 L 410) HEMATOCRIT (BEAKER) (test code = 34.3 % 34.1-44.9 411) MEAN CORPUSCULAR VOLUME (BEAKER) 90.5 fL 79.4-94.8 (test code = 753) MEAN CORPUSCULAR HEMOGLOBIN 27.7 pg 25.6-32.2 (BEAKER) (test code = 751) MEAN CORPUSCULAR HEMOGLOBIN CONC 30.6 GM/DL 32.2-35.5 L (BEAKER) (test code = 752) RED CELL DISTRIBUTION WIDTH 12.5 % 11.7-14.4 (BEAKER) (test code = 412) PLATELET COUNT (BEAKER) (test 322 K/CU MM 150-450 code = 756) MEAN PLATELET VOLUME (BEAKER) 10.3 fL 9.4-12.3 (test code = 754) NUCLEATED RED BLOOD CELLS 0 /100 WBC 0-0 (BEAKER) (test code = 413) BLOOD [id number] 00:00:00 Test Item Value Reference Range Interpretation Comments CULTURE (BEAKER) (test No growth in 5 days code = 1095) BLOOD [id number] 00:00:00 Test Item Value Reference Range Interpretation Comments CULTURE (BEAKER) (test No growth in 5 days code = 1095) CLOSTRIDIUM DIFFICILE TOXIN [id number] 17:09:00 Test Item Value Reference Range Interpretation Comments CLOSTRIDIUM DIFFICILE TOXIN, PCR Not Detected Not Detected (BEAKER) (test code = 1525) This qualitative real-time polymerase [...] a positive result is not recommended.BASIC METABOLIC [id number] 10:06:00 Test Item Value Reference Range Interpretation Comments SODIUM (BEAKER) 138 meq/L 136-145 (test code = 381) POTASSIUM (BEAKER) 4.2 meq/L 3.5-5.1 Specimen slightly (test code = 379) hemolyzed CHLORIDE (BEAKER) 104 meq/L 98-107 (test code = 382) CO2 (BEAKER) (test 24 meq/L 22-29 code = 355) BLOOD UREA NITROGEN 26 mg/dL 7-21 H (BEAKER) (test code = 354) CREATININE (BEAKER) 0.94 mg/dL 0.57-1.25 Specimen slightly (test code = 358) hemolyzed GLUCOSE RANDOM 100 mg/dL 70-105 (BEAKER) (test code = 652) CALCIUM (BEAKER) 8.8 mg/dL 8.4-10.2 (test code = 697) EGFR (BEAKER) (test 57 mL/min/1.73 ESTIMA EDDIE GFR IS code = 1092) sq m NOT ACCURATE CREATININE CLEARANCE IN PREDICTING GLOMERULAR FILTRATION RATE . ESTIMATED GFR I S NOT APPLICABLE FOR DIALYSIS PATIEN TS. CBC W/PLT COUNT & AUTO [id number] 09:48:00 Test Item Value Reference Range Interpretation Comments WHITE BLOOD CELL COUNT 12.9 K/ L 3.5-10.5 H (BEAKER) (test code = 775) RED BLOOD CELL COUNT 4.59 M/ L 3.93-5.22 (BEAKER) (test code = 761) HEMOGLOBIN (BEAKER) 13.4 GM/DL 11.2-15.7 (test code = 410) HEMATOCRIT (BEAKER) 43.1 % 34.1-44.9 (test code = 411) MEAN CORPUSCULAR 93.9 fL 79.4-94.8 VOLUME (BEAKER) (test code = 753) MEAN CORPUSCULAR 29.2 pg 25.6-32.2 HEMOGLOBIN (BEAKER) (test code = 751) MEAN CORPUSCULAR 31.1 GM/DL 32.2-35.5 L HEMOGLOBIN CONC (BEAKER) (test code = 752) RED CELL DISTRIBUTION 12.8 % 11.7-14.4 WIDTH (BEAKER) (test code = 412) PLATELET COUNT 286 K/CU MM 150-450 .Discordant f rom (BEAKER) (test code = previo us results. 756) Clinical correl ation suggested. MEAN PLATELET VOLUME 10.3 fL 9.4-12.3 (BEAKER) (test code = 754) NUCLEATED RED BLOOD 0 /100 WBC 0-0 CELLS (BEAKER) (test code = 413) NEUTROPHILS RELATIVE 70 % PERCENT (BEAKER) (test code = 429) LYMPHOCYTES RELATIVE 17 % PERCENT (BEAKER) (test code = 430) MONOCYTES RELATIVE 8 % PERCENT (BEAKER) (test code = 431) EOSINOPHILS RELATIVE 3 % PERCENT (BEAKER) (test code = 432) BASOPHILS RELATIVE 1 % PERCENT (BEAKER) (test code = 437) NEUTROPHILS ABSOLUTE 9.04 K/ L 1.56-6.13 H COUNT (BEAKER) (test code = 670) LYMPHOCYTES ABSOLUTE 2.22 K/ L 1.18-3.74 COUNT (BEAKER) (test code = 414) MONOCYTES ABSOLUTE 0.99 K/ L 0.24-0.36 H COUNT (BEAKER) (test code = 415) EOSINOPHILS ABSOLUTE 0.32 K/ L 0.04-0.36 COUNT (BEAKER) (test code = 416) BASOPHILS ABSOLUTE 0.15 K/ L 0.01-0.08 H COUNT (BEAKER) (test code = 417) IMMATURE 1 % 0-1 GRANULOCYTES-RELATIVE PERCENT (BEAKER) (test code = 2801) RAD, FOOT, 2 VIEWS, [id number] 16:52:00Reason for exam:->pain with ambulationFINAL REPORT Radiograph [...] Peterson Verified Date/Time: 01/12/2017 16:52:45 Reading Location: [address] Consult Reading Room T4, [id number] 16:26:00 Test Item Value Reference Range Interpretation Comments FREE T4 (BEAKER) (test code = 655) 1.12 ng/dL 0.70-1.48 TSH/FREE T4 IF [id number] 15:46:00 Test Item Value Reference Range Interpretation Comments THYROID STIMULATING HORMONE 0.03 uIU/mL 0.35-4.94 L (BEAKER) (test code = 772) BASIC METABOLIC [id number] 15:35:00 Test Item Value Reference Range Interpretation Comments SODIUM (BEAKER) 136 meq/L 136-145 (test code = 381) POTASSIUM (BEAKER) 4.1 meq/L 3.5-5.1 (test code = 379) CHLORIDE (BEAKER) 99 meq/L 98-107 (test code = 382) CO2 (BEAKER) (test 24 meq/L 22-29 code = 355) BLOOD UREA NITROGEN 32 mg/dL 7-21 H (BEAKER) (test code = 354) CREATININE (BEAKER) 1.12 mg/dL 0.57-1.25 (test code = 358) GLUCOSE RANDOM 164 mg/dL 70-105 H (BEAKER) (test code = 652) CALCIUM (BEAKER) 10.2 mg/dL 8.4-10.2 (test code = 697) EGFR (BEAKER) (test 46 mL/min/1.73 ESTIMA EDDIE GFR IS code = 1092) sq m NOT ACCURATE CREATININE CLEARANCE IN PREDICTING GLOMERULAR FILTRATION RATE . ESTIMATED GFR I S NOT APPLICABLE FOR DIALYSIS PATIEN TS. CBC W/PLT COUNT & AUTO [id number] 15:06:00 Test Item Value Reference Range Interpretation Comments WHITE BLOOD CELL COUNT (BEAKER) 17.4 K/ L 3.5-10.5 H (test code = 775) RED BLOOD CELL COUNT (BEAKER) 4.93 M/ L 3.93-5.22 (test code = 761) HEMOGLOBIN (BEAKER) (test code = 14.0 GM/DL 11.2-15.7 410) HEMATOCRIT (BEAKER) (test code = 44.8 % 34.1-44.9 411) MEAN CORPUSCULAR VOLUME (BEAKER) 90.9 fL 79.4-94.8 (test code = 753) MEAN CORPUSCULAR HEMOGLOBIN 28.4 pg 25.6-32.2 (BEAKER) (test code = 751) MEAN CORPUSCULAR HEMOGLOBIN CONC 31.3 GM/DL 32.2-35.5 L (BEAKER) (test code = 752) RED CELL DISTRIBUTION WIDTH 12.9 % 11.7-14.4 (BEAKER) (test code = 412) PLATELET COUNT (BEAKER) (test 360 K/CU MM 150-450 code = 756) MEAN PLATELET VOLUME (BEAKER) 10.5 fL 9.4-12.3 (test code = 754) NUCLEATED RED BLOOD CELLS 0 /100 WBC 0-0 (BEAKER) (test code = 413) NEUTROPHILS RELATIVE PERCENT 82 % (BEAKER) (test code = 429) LYMPHOCYTES RELATIVE PERCENT 11 % (BEAKER) (test code = 430) MONOCYTES RELATIVE PERCENT 4 % (BEAKER) (test code = 431) EOSINOPHILS RELATIVE PERCENT 0 % (BEAKER) (test code = 432) BASOPHILS RELATIVE PERCENT 1 % (BEAKER) (test code = 437) NEUTROPHILS ABSOLUTE COUNT 14.33 K/ L 1.56-6.13 H (BEAKER) (test code = 670) LYMPHOCYTES ABSOLUTE COUNT 1.97 K/ L 1.18-3.74 (BEAKER) (test code = 414) MONOCYTES ABSOLUTE COUNT (BEAKER) 0.71 K/ L 0.24-0.36 H (test code = 415) EOSINOPHILS ABSOLUTE COUNT 0.05 K/ L 0.04-0.36 (BEAKER) (test code = 416) BASOPHILS ABSOLUTE COUNT (BEAKER) 0.16 K/ L 0.01-0.08 H (test code = 417) IMMATURE GRANULOCYTES-RELATIVE 1 % 0-1 PERCENT (BEAKER) (test code = 2801) URINE [id number] 08:21:00 Test Item Value Reference Range Interpretation Comments CULTURE (BEAKER) (test code = 1095) Amikacin (test code = 1) S Ampicillin + Sulbactam (test R code = 6) Aztreonam (test code = 32) S Cefepime (test code = 51) S Cefoxitin (test code = 68) R Ceftazidime (test code = 27) S Ceftriaxone (test code = 52) S Ertapenem (test code = 38) S Gentamicin (test code = 18) S Levofloxacin (test code = R 22) Meropenem (test code = 34) S Nitrofurantoin (test code = R 23) Piperacillin + Tazobactam S (test code = 29) Tetracycline (test code = 2) R Tobramycin (test code = 25) S Trimethoprim + S Sulfamethoxazole (test code = 47) CULTURE (BEAKER) (test code A >100,000 col/mL = 1095) Proteus mirabil is <10,000 col/mL skin ranjith<10,000 col/mL gram negative rods of a second typeMR, BRAIN, WITHOUT [id number] 16:03:00Reason for exam:->Ischemic Stroke EvaluationFINAL REPORT MRI [...] 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 Signed: Wang Lee MDReport Verified Date/Time: 01/09/2017 16:03:04 Reading Location: [address] Neuro Reading Room URINALYSIS W/ MICROSCOPIC 2017-01-09 15:35:00 Test Item Value Reference Range Interpretation Comments COLOR (BEAKER) (test code = Light Yellow 470) CLARITY (BEAKER) (test code = Hazy 469) SPECIFIC GRAVITY UA (BEAKER) 1.010 1.001-1.035 (test code = 468) PH UA (BEAKER) (test code = 8.0 5.0-8.0 467) PROTEIN UA (BEAKER) (test code 20 mg/dL Negative A = 464) GLUCOSE UA (BEAKER) (test code Negative Negative = 365) KETONES UA (BEAKER) (test code Negative Negative = 371) BILIRUBIN UA (BEAKER) (test Negative Negative code = 462) BLOOD UA (BEAKER) (test code = Negative Negative 461) NITRITE UA (BEAKER) (test code Negative Negative = 465) LEUKOCYTE ESTERASE UA (BEAKER) Large Negative A (test code = 466) UROBILINOGEN UA (BEAKER) (test 0.2 mg/dL 0.2-1.0 code = 463) RBC UA (BEAKER) (test code = 2 /HPF 519) WBC UA (BEAKER) (test code = 87 /HPF 520) SQUAMOUS EPITHELIAL (BEAKER) 3 /HPF (test code = 516) SOURCE(BEAKER) (test code = Urine, Voided 2795) URINALYSIS W/ REFLEX URINE [id number] 15:35:00 Test Item Value Reference Range Interpretation Comments COLOR (BEAKER) (test code = Light Yellow 470) CLARITY (BEAKER) (test code = Hazy 469) SPECIFIC GRAVITY UA (BEAKER) 1.010 1.001-1.035 (test code = 468) PH UA (BEAKER) (test code = 8.0 5.0-8.0 467) PROTEIN UA (BEAKER) (test code 20 mg/dL Negative A = 464) GLUCOSE UA (BEAKER) (test code Negative Negative = 365) KETONES UA (BEAKER) (test code Negative Negative = 371) BILIRUBIN UA (BEAKER) (test Negative Negative code = 462) BLOOD UA (BEAKER) (test code = Negative Negative 461) NITRITE UA (BEAKER) (test code Negative Negative = 465) LEUKOCYTE ESTERASE UA (BEAKER) Large Negative A (test code = 466) UROBILINOGEN UA (BEAKER) (test 0.2 mg/dL 0.2-1.0 code = 463) RBC UA (BEAKER) (test code = 2 /HPF 519) WBC UA (BEAKER) (test code = 87 /HPF 520) SQUAMOUS EPITHELIAL (BEAKER) 3 /HPF (test code = 516) SOURCE(BEAKER) (test code = Urine, Voided 2795) [id number] 14:30:00 Test Item Value Reference Range Interpretation Comments RPR SCREEN (BEAKER) (test code = Nonreactive Nonreactive 420) HEMOGLOBIN [id number] 10:58:00 Test Item Value Reference Range Interpretation Comments HEMOGLOBIN A1C (BEAKER) (test code = 5.8 % 4.3-6.1 368) SEDIMENTATION [id number] 10:44:00 Test Item Value Reference Range Interpretation Comments SEDIMENTATION RATE, ERYTHROCYTE 52 mm/HR 0-40 H (BEAKER) (test code = 766) T4, [id number] 09:16:00 Test Item Value Reference Range Interpretation Comments FREE T4 (BEAKER) (test code = 655) 0.94 ng/dL 0.70-1.48 TSH/FREE T4 IF [id number] 08:42:00 Test Item Value Reference Range Interpretation Comments THYROID STIMULATING HORMONE 0.05 uIU/mL 0.35-4.94 L (BEAKER) (test code = 772) VITAMIN B12 AND [id number] 08:37:00 Test Item Value Reference Range Interpretation Comments VITAMIN B12 (BEAKER) (test code = 829 pg/mL 213-816 H 774) FOLATE (BEAKER) (test code = 362) 15.9 ng/mL >=7.0 [id number] 08:36:00 Test Item Value Reference Range Interpretation Comments HOMOCYSTEINE (BEAKER) (test code 10.2 umol/L 5.1-15.4 = 642) LIPID [id number] 08:26:00 Test Item Value Reference Range Interpretation Comments TRIGLYCERIDES (BEAKER) (test code = 86 mg/dL 540) CHOLESTEROL (BEAKER) (test code = 194 mg/dL 631) HDL CHOLESTEROL (BEAKER) (test code 66 mg/dL = 976) LDL CHOLESTEROL CALCULATED (BEAKER) 111 mg/dL (test code = 633) Triglyceride Reference Range: Low Risk <150 Borderline 150-199 High Risk 200-499 Very High Risk >=500Cholesterol Reference Range: Low Risk <200 Borderline 200-239 High Risk >240HDL Cholesterol Reference Range: Low Risk >=60 High Risk <40LDL Cholesterol Reference Range: Optimal <100 Near Optimal 100-129 Borderline 130-159 High 160-189 Very High >=190 FastingBASIC METABOLIC [id number] 08:26:00 Test Item Value Reference Range Interpretation Comments SODIUM (BEAKER) 136 meq/L 136-145 (test code = 381) POTASSIUM (BEAKER) 4.7 meq/L 3.5-5.1 (test code = 379) CHLORIDE (BEAKER) 99 meq/L 98-107 (test code = 382) CO2 (BEAKER) (test 24 meq/L 22-29 code = 355) BLOOD UREA NITROGEN 27 mg/dL 7-21 H (BEAKER) (test code = 354) CREATININE (BEAKER) 1.04 mg/dL 0.57-1.25 (test code = 358) GLUCOSE RANDOM 133 mg/dL 70-105 H (BEAKER) (test code = 652) CALCIUM (BEAKER) 8.8 mg/dL 8.4-10.2 (test code = 697) EGFR (BEAKER) (test 51 mL/min/1.73 ESTIMA EDDIE GFR IS code = 1092) sq m NOT ACCURATE CREATININE CLEARANCE IN PREDICTING GLOMERULAR FILTRATION RATE . ESTIMATED GFR I S NOT APPLICABLE FOR DIALYSIS PATIEN TS. FastingHEPATIC FUNCTION [id number] 08:26:00 Test Item Value Reference Range Interpretation Comments TOTAL PROTEIN (BEAKER) (test code = 6.8 gm/dL 6.0-8.3 770) ALBUMIN (BEAKER) (test code = 1145) 3.4 g/dL 3.5-5.0 L BILIRUBIN TOTAL (BEAKER) (test code 0.6 mg/dL 0.2-1.2 = 377) BILIRUBIN DIRECT (BEAKER) (test 0.2 mg/dL 0.1-0.5 code = 706) ALKALINE PHOSPHATASE (BEAKER) (test 67 U/L 40-150 code = 346) AST (SGOT) (BEAKER) (test code = 16 U/L 5-34 353) ALT (SGPT) (BEAKER) (test code = 11 U/L 6-55 347) FastingCREATINE KINASE (CK), TOTAL AND [id number] 08:26:00 Test Item Value Reference Range Interpretation Comments CREATINE KINASE TOTAL (BEAKER) 30 U/L 29-200 (test code = 380) CREATINE KINASE-MB (BEAKER) (test 0.8 ng/mL 0.0-6.6 code = 750) CREATINE KINASE-MB INDEX (BEAKER) 2.7 % (test code = 395) CK-MB Reference Range:<6.7 Normal6.7-10.0 Borderline>10.0 AbnormalFastingFastingC-REACTIVE [id number] 08:26:00 Test Item Value Reference Range Interpretation Comments C-REACTIVE PROTEIN (BEAKER) (test 1.74 mg/dL 0.00-0.50 H code = 676) FastingCBC W/PLT COUNT & AUTO [id number] 07:57:00 Test Item Value Reference Range Interpretation Comments WHITE BLOOD CELL COUNT (BEAKER) 16.6 K/ L 3.5-10.5 H (test code = 775) RED BLOOD CELL COUNT (BEAKER) 4.21 M/ L 3.93-5.22 (test code = 761) HEMOGLOBIN (BEAKER) (test code = 12.3 GM/DL 11.2-15.7 410) HEMATOCRIT (BEAKER) (test code = 38.4 % 34.1-44.9 411) MEAN CORPUSCULAR VOLUME (BEAKER) 91.2 fL 79.4-94.8 (test code = 753) MEAN CORPUSCULAR HEMOGLOBIN 29.2 pg 25.6-32.2 (BEAKER) (test code = 751) MEAN CORPUSCULAR HEMOGLOBIN CONC 32.0 GM/DL 32.2-35.5 L (BEAKER) (test code = 752) RED CELL DISTRIBUTION WIDTH 12.9 % 11.7-14.4 (BEAKER) (test code = 412) PLATELET COUNT (BEAKER) (test 296 K/CU MM 150-450 code = 756) MEAN PLATELET VOLUME (BEAKER) 10.3 fL 9.4-12.3 (test code = 754) NUCLEATED RED BLOOD CELLS 0 /100 WBC 0-0 (BEAKER) (test code = 413) NEUTROPHILS RELATIVE PERCENT 78 % (BEAKER) (test code = 429) LYMPHOCYTES RELATIVE PERCENT 15 % (BEAKER) (test code = 430) MONOCYTES RELATIVE PERCENT 5 % (BEAKER) (test code = 431) EOSINOPHILS RELATIVE PERCENT 1 % (BEAKER) (test code = 432) BASOPHILS RELATIVE PERCENT 1 % (BEAKER) (test code = 437) NEUTROPHILS ABSOLUTE COUNT 12.92 K/ L 1.56-6.13 H (BEAKER) (test code = 670) LYMPHOCYTES ABSOLUTE COUNT 2.40 K/ L 1.18-3.74 (BEAKER) (test code = 414) MONOCYTES ABSOLUTE COUNT (BEAKER) 0.90 K/ L 0.24-0.36 H (test code = 415) EOSINOPHILS ABSOLUTE COUNT 0.08 K/ L 0.04-0.36 (BEAKER) (test code = 416) BASOPHILS ABSOLUTE COUNT (BEAKER) 0.11 K/ L 0.01-0.08 H (test code = 417) IMMATURE GRANULOCYTES-RELATIVE 1 % 0-1 PERCENT (BEAKER) (test code = 2801) TROPONIN [id number] 07:47:00 Test Item Value Reference Range Interpretation Comments TROPONIN I (BEAKER) (test code = 0.01 ng/mL 0.00-0.03 397) Troponin I (TnI) levels must be interpreted [...]
[2019-08-29] MEDS: ARFORMOTEROL TARTRATE 15 MCG/2 ML VIAL.NEB IH SCH (19:30)
[2019-08-29] MEDS: METOPROLOL TAR 50 MG TAB PO SCH (21:04)
[2019-08-29] MEDS: PANTOPRAZOLE 40 MG INJ IVP SCH (21:05)
[2019-08-29] MEDS ORDERED: WATER FOR INJ,STERILE 10 ML ONE (21:15)
[2019-08-29] MEDS: DIAZEPAM 5 MG TABLET PO PRN (21:35)
[2019-08-30 05:41] LABS: Absolute Lymphocytes (CBC) 1.6 K/uL (0.7-4.9); Basophils % 0.6 % (0-1.3); Hematocrit 27.2 % (36.0-45.0); MPV 8.3 fL (7.6-11.3); RBC Red Blood Cell Count 3.12 M/uL (3.86-4.86)
[2019-08-30 05:42] LABS: Urine Appearance CLEAR; Urine Bilirubin NEGATIVE (NEG); Urine Blood 1+ (NEG); Urine Color YELLOW; Urine Glucose NEGATIVE (NEG); Urine Protein NEGATIVE (NEG); Urine Specific Gravity <=1.005 (1.005-1.030); Urine Urobilinogen 0.2 mg/dL (0.2-1.0)
[2019-08-30 05:52] LABS: Urine Microscopic Reflex ORDER UMIC
[2019-08-30 05:55] LABS: Urine Bacteria <20 /HPF (<20); Urine Culture Reflex Order REFLEXED; Urine RBC <5 /HPF (NONE SEEN)
[2019-08-30 05:58] LABS: Albumin 2.8 g/dL (3.4-5.0); Bilirubin Total 0.5 mg/dL (0.2-1.0); Potassium 4.2 mmol/L (3.5-5.1); Protein, Total 6.3 g/dL (6.4-8.2)
--- NOTE | 2019-08-30 08:22 | P.CNS ---
Date of Consult: 08/30/19 Chief Complaint: Rectal bleeding History of Present Illness: Pt is an 83 y/o male with past medical hx of HTN, Dementia, afib on eliquis, copd, gerd, depression, presenting with complaints of rectal bleed that has been on and off the past couple of months. Pt reports multiple occurrences of GI bleeds the last being about 8 months ago when she had a colonoscopy and was found to have only hemorrhoids. She denies any nausea, vomiting diarrhea. She does endorse suprapubic tenderness, urgency and hesitancy, has tried to void but has been unable to so far. She reports having bladder issues on occasion, also reports having multiple UTIs in the past. In the ED, creatinine on arrival was 1.5 improved to 1.38 s/p blood transfusion and administration of lasix. Pt today reports mild shortness of breath which is improved on breathing treatment and oxygen supplementation. Renal has been consulted for continued management of kidney injury Allergies ciprofloxacin Adverse Reaction (Verified 12/08/18 05:44) Rash; diarrhea levofloxacin [From Levaquin] Adverse Reaction (Verified 12/08/18 05:44) Rash; diarrhea Home Medications: Acetaminophen with Codeine [Tylenol with Codeine #3 Tablet] 1 tab PO Q6H PRN 12/08/18 Diazepam [Valium] 1 tab PO BEDTIME 12/08/18 Ipratropium [place] 1 godfrey IH Q6H PRN 12/08/18 Metoprolol Tartrate [Lopressor*] 1 tab PO BID 12/08/18 Venlafaxine HCl [Venlafaxine HCl ER] 75 mg PO DAILY 12/08/18 methIMAzole [Tapazole*] 15 mg PO DAILY 12/08/18 predniSONE [Prednisone*] 1 tab PO DAILY 12/08/18 Carboxymethylcellulose Sodium [Artificial Tears] 1 gtt EACH EYE BID 08/29/19 Docusate Sodium 100 mg PO Q12HP PRN 08/29/19 Eucalyptus/Menthol [Cough Drops] 1 tab PO Q2HP PRN 08/29/19 Ferrous Sulfate [Ferrous Sulfate*] 325 mg PO DAILY 08/29/19 Guaifenesin/Dextromethorphan [Coricidin Hbp Chest Ranjith-Cough] 1 cap PO Q4HP PRN 08/29/19 Hydrocort Acetate Suppos [Anucort-Hc Suppository*] 25 mg RC BIDP PRN 08/29/19 Loperamide HCl [Imodium A-D] 2 mg PO Q6HP PRN 08/29/19 Melatonin/Pyridoxine [Melatonin 5 mg Tablet] 2 tab PO BEDTIME PRN PRN 08/29/19 Nystatin Powder [Mycostatin (Powder)*] 1 godfrey TOP Q12HP PRN 08/29/19 Perforomist Nebulization 20mcg/2ml 2 ml IH BID 08/29/19 Potassium Chloride 10 meq PO DAILY 08/29/19 Psyllium Husk (with Sugar) [Metamucil Packet] 1 packet PO DAILYPRN PRN 08/29/19 Vit A/Vit C/Vit E/Zinc/Copper [Preservision Areds Softgel] 1 each PO DAILY 08/29/19 Amox/Clavulanate [Augmentin 500-125 mg Tab] 500 mg PO DAILY #7 tab 08/30/19 Bethanechol Chloride 10 mg PO TID #90 tablet 08/30/19 Furosemide [Lasix*] 40 mg PO BIDL #60 tab 08/30/19 - Past Medical/Surgical History Diabetic: No -: Hypertension -: CAD -: COPD, on chronic oxygen and steroids -: GERD -: Depression -: Dementia -: AFib on chronic anti coagulation therapy -: Hyperthyroidism -: UTI -: Anxiety -: GI Bleed -: CT -: tonsillectomy @ 8 yrs old -: Cataract surgery both eyes Psychosocial/ Personal History: [facility] - Family History Father Medical History: Heart disease, Hypertension, Stroke, Kidney disease Notes: Bryte's disease Mother Medical History: Heart disease, Hypertension, Stroke Sister Medical History: Hypertension, Kidney disease Notes: anuerysm Brother Medical History: Cancer Notes: cancer of esophagus and colon cancer - Social History Smoking Status: Current every day smoker Alcohol use: No CD- Drugs: No Caffeine use: Yes Place of Residence: [place] Review of Systems General: Unremarkable Eyes: Unremarkable ENT: Unremarkable Respiratory: Wheezing Cardiovascular: Unremarkable Gastrointestinal: Unremarkable Musculoskeletal: Unremarkable Integumentary: Rash, Lesions Neurological: Weakness Physical Examination Temp Pulse Resp BP Pulse Ox 97.3 F 71 21 H 150/58 H 100 08/30/19 00:00 08/30/19 06:00 08/30/19 06:00 08/30/19 06:00 08/30/19 06:00 General: Alert, Oriented x3 HEENT: Atraumatic, Normocephalic, PERRLA Neck: Supple Respiratory: Clear to auscultation bilaterally, Normal air movement, Diminished Cardiovascular: No edema, Normal pulses, Normal S1 S2, Edema Capillary refill: <2 Seconds Gastrointestinal: Normal bowel sounds, Soft and benign Musculoskeletal: No swelling, No tenderness, No warmth Integumentary: No rashes Neurological: Normal speech, Sensation intact, Cranial nerves 3-12 intact, Normal reflexes 2+ Urinary: Bladder distention Laboratory Data (last 24 hrs) 08/29/19 13:59: Sodium 140, Potassium 4.1, BUN 15, Creatinine 1.49 H, Glucose 194 H 08/29/19 13:59: WBC 12.0 H, Hgb 6.2 L*, Hct 20.1 L*, Plt Count 328 - Problems (1) Anemia due to blood loss, chronic Current Visit: Yes Status: Acute (2) Lower GI bleed Current Visit: Yes Status: Acute (3) PATRICIA (acute kidney injury) Onset Date: 12/07/16 Current Visit: No Status: Acute (4) COPD exacerbation Onset Date: 07/09/16 Current Visit: No Status: Acute (5) UTI (urinary tract infection) Onset Date: 12/07/16 Current Visit: No Status: Acute Qualifiers: Urinary tract infection type: site unspecified Hematuria presence: without hematuria Qualified Code(s): N39.0 - Urinary tract infection, site not specified Conclusions/Impression: Pt is an 83 y/o female with past medical hx of HTN, COPD, CAD presenting with blood per rectum. Pt found to have an PATRICIA, andsymptoms are reso Plans PATRICIA most likely 2/2 obstructive uropathy as well as possible cardiorenal insufficiency. Please place bales catheter Strict i/o Will continue diuresis. Avoid nsaid, acei/arbs, fleece enemas, contrasted studies Please treat UTI, will defer management with primary team Pt to undergo colonoscopy in the AM with Dr Bassett
[2019-08-30] MEDS: ARFORMOTEROL TARTRATE 15 MCG/2 ML VIAL.NEB IH SCH ×2 (09:13→19:45)
[2019-08-30] MEDS: PANTOPRAZOLE 40 MG INJ IVP SCH ×2 (10:00→20:14)
[2019-08-30] MEDS: METOPROLOL TAR 50 MG TAB PO SCH ×2 (10:00→20:13)
[2019-08-30] MEDS: FUROSEMIDE 40 MG TABLET PO SCH ×2 (10:00→17:14)
[2019-08-30] MEDS: predniSONE 5 MG TAB PO SCH (10:29)
[2019-08-30] MEDS: VENLAFAXINE HCL XR 75 MG CAP PO SCH (10:35)
--- NOTE | 2019-08-30 11:08 | P.DS ---
Admission Date: 08/29/19 Discharge Date: 08/30/19 Disposition: TRANSFER TO CUSTODIAL Discharge Condition: FAIR Reason for Admission: Rectal bleeding - Problems (1) Lower GI bleed Current Visit: Yes Status: Acute (2) Anemia due to blood loss, chronic Current Visit: Yes Status: Acute (3) PATRICIA (acute kidney injury) Onset Date: 12/07/16 Current Visit: No Status: Acute (4) CHF (congestive heart failure) Current Visit: No Status: Chronic Qualifiers: Heart failure type: diastolic Heart failure chronicity: acute on chronic Qualified Code(s): I50.33 - Acute on chronic diastolic (congestive) heart failure (5) COPD (chronic obstructive pulmonary disease) Onset Date: 12/07/16 Current Visit: No Status: Chronic Qualifiers: COPD type: unspecified COPD Qualified Code(s): J44.9 - Chronic obstructive pulmonary disease, unspecified (6) HTN (hypertension) Onset Date: 12/07/16 Current Visit: No Status: Chronic Qualifiers: Hypertension type: essential hypertension Qualified Code(s): I10 - Essential (primary) hypertension (7) Hyperthyroidism Current Visit: No Status: Chronic Brief History of Present Illness: 83-year-old female with history of HTN, COPD on chronic oxygen as steroids, CAD, depression, dementia, history of atrial fibrillation on chronic anticoagulation with Eliquis, recurrent lower GI bleed status post colonoscopy at [facility] 6 months ago with patient report of no significant findings except for hemorrhoids, she had blood transfusion then. She received another unit of blood transfusion 3 months ago. She presented this time because of recurrent of rectal bleed. Bleeding mixed with stool but later also leaks and stain diapers . She denies any abdominal trauma. She denies any nausea or abdominal pain or cramps. She states she has had tele conference evaluation with Dr. dent and was scheduled for a repeat evaluation in 1 week. She is refusing possibility of colonoscopy at this time. She denies any hematemesis or vomiting. On presentation in the ED she was noted with hemoglobin of 6.2. She has been admitted for anemia and lower GI bleed Hospital Course: patient with history of recurrent lower GI bleed, bleeding hemorrhoids admitted for recurrent bleed with low H and H of 6.2. She received 2 units PRBC. There was no recurrence of briskly bleeding during hospitalization. She did receive steroids supposed to treat for presumed hemorrhoids. She also had her Eliquis held. Her hemoglobin beatrice appropriately to 8.2. She will be discharged home back to assisted today. Given a recurrent please been advised outpatient show hold off for the anticoagulation for have previous history of AFib for now. She can follow up with her primary and decision for restart of anticoagulation in the future can be decided Vital Signs/Physical Exam: Temp Pulse Resp BP Pulse Ox 97.9 F 82 21 H 151/70 H 100 08/30/19 08:00 08/30/19 10:00 08/30/19 06:00 08/30/19 10:00 08/30/19 09:00 General: Alert, In no apparent distress, Oriented x3, Obese HEENT: Atraumatic, Normocephalic Neck: Supple, 2+ carotid pulse no bruit, JVD not distended Respiratory: Normal air movement, Crackles/rales Cardiovascular: Normal pulses, Regular rate/rhythm, Normal S1 S2 Gastrointestinal: Normal bowel sounds, Soft and benign, No ascites, No tenderness Neurological: Normal speech, Normal strength at 5/5 x4 extr, Normal tone Laboratory Data at Discharge: WBC 12.2 K/uL (4.3-10.9) H 08/30/19 05:26 Hgb 8.6 g/dL (12.0-15.0) L 08/30/19 05:26 Hct 27.2 % (36.0-45.0) L D 08/30/19 05:26 Plt Count 293 K/uL (152-406) 08/30/19 05:26 Sodium 142 mmol/L (136-145) 08/30/19 05:26 Potassium 4.2 mmol/L (3.5-5.1) 08/30/19 05:26 BUN 13 mg/dL (7-18) 08/30/19 05:26 Creatinine 1.32 mg/dL (0.55-1.3) H 08/30/19 05:26 Glucose 131 mg/dL (74-106) H 08/30/19 05:26 Total Bilirubin 0.5 mg/dL (0.2-1.0) 08/30/19 05:26 AST 11 U/L (15-37) L 08/30/19 05:26 ALT 13 U/L (12-78) 08/30/19 05:26 Alkaline Phosphatase 62 U/L (45-117) 08/30/19 05:26 Home Medications: Acetaminophen with Codeine [Tylenol with Codeine #3 Tablet] 1 tab PO Q6H PRN 12/08/18 Diazepam [Valium] 1 tab PO BEDTIME 12/08/18 Ipratropium [place] 1 godfrey IH Q6H PRN 12/08/18 Metoprolol Tartrate [Lopressor*] 1 tab PO BID 12/08/18 Venlafaxine HCl [Venlafaxine HCl ER] 75 mg PO DAILY 12/08/18 methIMAzole [Tapazole*] 15 mg PO DAILY 12/08/18 predniSONE [Prednisone*] 1 tab PO DAILY 12/08/18 Carboxymethylcellulose Sodium [Artificial Tears] 1 gtt EACH EYE BID 08/29/19 Docusate Sodium 100 mg PO Q12HP PRN 08/29/19 Eucalyptus/Menthol [Cough Drops] 1 tab PO Q2HP PRN 08/29/19 Ferrous Sulfate [Ferrous Sulfate*] 325 mg PO DAILY 08/29/19 Furosemide [Lasix*] 40 mg PO DAILY 08/29/19 Guaifenesin/Dextromethorphan [Coricidin Hbp Chest Ranjith-Cough] 1 cap PO Q4HP PRN 08/29/19 Hydrocort Acetate Suppos [Anucort-Hc Suppository*] 25 mg RC BIDP PRN 08/29/19 Loperamide HCl [Imodium A-D] 2 mg PO Q6HP PRN 08/29/19 Melatonin/Pyridoxine [Melatonin 5 mg Tablet] 2 tab PO BEDTIME PRN PRN 08/29/19 Nystatin Powder [Mycostatin (Powder)*] 1 godfrey TOP Q12HP PRN 08/29/19 Perforomist Nebulization 20mcg/2ml 2 ml IH BID 08/29/19 Potassium Chloride 10 meq PO DAILY 08/29/19 Psyllium Husk (with Sugar) [Metamucil Packet] 1 packet PO DAILYPRN PRN 08/29/19 Vit A/Vit C/Vit E/Zinc/Copper [Preservision Areds Softgel] 1 each PO DAILY 08/29/19 Diet: Regular Activity: Ad alfreda Time spent managing pt's care (in minutes): 35
[2019-08-30 12:09] LABS: Hematocrit 28.2 % (36.0-45.0)
--- NOTE | 2019-08-30 14:24 | P.PN ---
Subjective Date of Service: 08/30/19 Chief Complaint: Rectal bleeding Subjective: No new changes, No C/O voiced (Feels much better. No more bleeding since last night Tolerated PRBC well yesterday Voiding well with Lasix) Physical Examination - Vital Signs Temperature: 97.7 F Blood Pressure: 129/54 Pulse: 63 Respirations: 21 Pulse Ox (%): 100 - Physical Exam General: Alert, In no apparent distress, Oriented x3 HEENT: Atraumatic, Normocephalic Neck: Supple, 2+ carotid pulse no bruit, JVD not distended Respiratory: Diminished, Crackles/rales Cardiovascular: Normal pulses, Regular rate/rhythm, Normal S1 S2 Gastrointestinal: Normal bowel sounds, Soft and benign, Non-distended, No tenderness Musculoskeletal: No clubbing, Swelling Integumentary: No rashes, No breakdown Neurological: Normal speech, Normal strength at 5/5 x4 extr - Studies Laboratory Data (last 24 hrs) 08/29/19 13:59: Sodium 140, Potassium 4.1, BUN 15, Creatinine 1.49 H, Glucose 194 H 08/29/19 13:59: WBC 12.0 H, Hgb 6.2 L*, Hct 20.1 L*, Plt Count 328 Assessment And Plan - Current Problems (Diagnosis) (1) Lower GI bleed Current Visit: Yes Status: Acute (2) Anemia due to blood loss, chronic Current Visit: Yes Status: Acute (3) PATRICIA (acute kidney injury) Onset Date: 12/07/16 Current Visit: No Status: Acute (4) CHF (congestive heart failure) Current Visit: No Status: Chronic Qualifiers: Heart failure type: diastolic Heart failure chronicity: acute on chronic Qualified Code(s): I50.33 - Acute on chronic diastolic (congestive) heart failure (5) COPD (chronic obstructive pulmonary disease) Onset Date: 12/07/16 Current Visit: No Status: Chronic Qualifiers: COPD type: unspecified COPD Qualified Code(s): J44.9 - Chronic obstructive pulmonary disease, unspecified (6) HTN (hypertension) Onset Date: 12/07/16 Current Visit: No Status: Chronic Qualifiers: Hypertension type: essential hypertension Qualified Code(s): I10 - Essential (primary) hypertension (7) Hyperthyroidism Current Visit: No Status: Chronic Physician Review: Patient Assessed, Agree with Above Assessment and Plan Physician Review Additional Text: Blood loss anemia- s/p improved to 8.2 s/p 2 unit PRBC Lower GI bleed-GI consult done -pt initially refusing colonoscopy but now agreebale -will hold dc and plan for colonoscopy in am -may be due to bleeding hemorrhoids in setting of chronic anticoagulation -hold Eliquis now Hypertension-resume home regimen History of CHF-improving , c/w IV Lasix 40 Q 12 for now History of COPD-on stable continue chronic low-dose prednisone Continue on nasal cannula O2 History of hyperthyroidism-on methimazole DVT prophylaxis-SCDs, no systemic anticoagulation Advanced directives-full code for now Disposition-possible hospital stay for 1-2 days Time Spent Managing PTS Care (In Minutes): 35
[2019-08-30] MEDS ORDERED: GOLYTELY 4000 ML PO SCH (14:30)
[2019-08-30] MEDS ORDERED: BISACODYL E.C. 5 MG TAB PO ONE (14:30)
[2019-08-30] MEDS ORDERED: MAGNESIUM CITRATE 300 ML BOT PO SCH (14:35)
[2019-08-30] MEDS: BETHANECHOL 10 MG TAB PO SCH ×3 (15:32→20:24)
[2019-08-30] MEDS: CEFTRIAXONE/SWI 1gm 1 GM/10 ML SYR IV SCH (16:23)
[2019-08-30] MEDS: METOCLOPRAMIDE 10 MG/2mL INJ IV SCH ×2 (16:26→20:13)
[2019-08-30] MEDS: CODEINE 30MG/APAP 300MG TAB PO PRN (20:25)
[2019-08-31] MEDS: METOCLOPRAMIDE 10 MG/2mL INJ IV SCH (02:59)
[2019-08-31 05:23] LABS: Absolute Lymphocytes (CBC) 2.4 K/uL (0.7-4.9); Basophils % 0.7 % (0-1.3); Hematocrit 31.2 % (36.0-45.0); Lymphocytes % 20.6 % (15.3-44.8); MPV 8.3 fL (7.6-11.3); RBC Red Blood Cell Count 3.53 M/uL (3.86-4.86)
[2019-08-31 05:41] LABS: Albumin 3.2 g/dL (3.4-5.0); Bilirubin Total 0.4 mg/dL (0.2-1.0); Potassium 3.3 mmol/L (3.5-5.1)
[2019-08-31 06:41] VITALS: BMI 38.8
[2019-08-31] MEDS: ARFORMOTEROL TARTRATE 15 MCG/2 ML VIAL.NEB IH SCH (07:40)
[2019-08-31] MEDS: CEFTRIAXONE/SWI 1gm 1 GM/10 ML SYR IV SCH (07:47)
[2019-08-31] MEDS: METOPROLOL TAR 50 MG TAB PO SCH (07:47)
[2019-08-31] MEDS: PANTOPRAZOLE 40 MG INJ IVP SCH (07:48)
[2019-08-31] MEDS ORDERED: NA CHLORIDE 0.9% 500 ML ONE (08:26)
[2019-08-31] MEDS ORDERED: LIDOCAINE 1% MPF 5 ML VIAL ONE (08:41)
[2019-08-31] MEDS ORDERED: propofoL 200 MG/20 ML VIAL IV ONE (08:41)
[2019-08-31] MEDS ORDERED: EPINEPHRINE/PF 1 MG/ML AMP ONE (08:49)
--- NOTE | 2019-08-31 09:05 | ENDO RPT ---
[address], [address] EGD PROCEDURE REPORT EXAM DATE: 08/31/2019 PATIENT NAME: Elida Pradhan MR#: [id number] BIRTHDATE: 1935 ATTENDING: Shawn Alva Dr STATUS: inpatient - 7 IRRIGATION SYSTEM OPERATOR: Mitchell Camacho CST and Ashley Sims RN INDICATIONS: The patient is a 83 yr old Female here for an EGD due to anemia, hgb 6.2, and G.I. bleeding / hematochezia PROCEDURE PERFORMED: EGD with biopsy MEDICATIONS: Per Anesthesia. TOPICAL ANESTHETIC: none CONSENT: The patient understands the risks and benefits of the procedure and understands that these risks include, but are not limited to: sedation, allergic reaction, infection, perforation and/or bleeding. Alternative means of evaluation and treatment include, among others: physical exam, x-rays, and/or surgical intervention. The patient elects to proceed with this endoscopic procedure. DESCRIPTION OF PROCEDURE: During intra-op preparation period all mechanical medical equipment was checked for proper function. Hand hygiene and appropriate measures for infection prevention was taken. Procedure, possible complications, and alternatives including but not limited to the possibility of bleeding, perforation, tear, infection, sepsis, need for surgery, need for blood transfusion, and anesthesia related complications were explained to the patient. After the risks, benefits and alternatives of the procedure were thoroughly explained, Informed consent was verified, confirmed and timeout was successfully executed by the treatment team. The patient was placed in the left lateral position. The patient was anesthetized with topical anesthesia. Through the anesthetized oropharyngeal area, the scope was passed without any difficulty. The [id number] ([id number]) endoscope was introduced through the mouth and advanced to the second portion of the duodenum. Retroflexed views revealed no abnormalities. The gastroscope was then slowly withdrawn and removed. The upper, middle, and distal third of the esophagus were carefully inspected and no abnormalities were noted. The z-line was well seen at the GEJ. The endoscope was pushed into the fundus which was normal including a retroflexed view. The antrum, first and second part of the duodenum were unremarkable. ADVERSE EVENTS: There were no complications. IMPRESSIONS: Normal EGD RECOMMENDATIONS: colonoscopy REPEAT EXAM: Shawn Alva Dr eSigned: Shawn Alva Dr 08/31/2019 9:04 AM cc: CPT CODES: ICD9 CODES: PATIENT NAME: Elida PradhanAshly MR#: [id number]
--- NOTE | 2019-08-31 09:36 | ENDO RPT ---
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 ESTIMATED BLOOD LOSS: None CONSENT: The patient understands the risks and benefits of the procedure and understands that these risks include, but are not limited to: sedation, allergic reaction, infection, perforation and/or bleeding. Alternative means of evaluation and treatment include, among others: physical exam, x-rays, and/or surgical intervention. The patient elects to proceed with this endoscopic procedure. DESCRIPTION OF PROCEDURE: During intra-op preparation period all mechanical medical equipment was checked for proper function. Hand hygiene and appropriate measures for infection prevention was taken. Procedure, possible complications, alternatives including, but not limited to possibility of bleeding, perforation, tear, infection, sepsis, need for surgery, need for blood transfusion, were explained to the patient. After the risks, benefits and alternatives of the procedure were thoroughly explained, Informed consent was verified, confirmed and timeout was successfully executed by the treatment team. The patient was placed in the left lateral position. A digital rectal exam was performed and revealed external hemorrhoids and A digital rectal exam was performed and revealed several skin tags. After appropriate level of anesthesia, the scope was passed. The [id number] ([id number]) and [id number] ([id number]) endoscope was introduced through the anus and advanced to the cecum, which was identified by both the appendix and ileocecal valve. The quality of the prep was fair. The instrument was then slowly withdrawn as the colon was fully examined. Scope withdrawal time was 7 minutes. COLON FINDINGS: Diverticulum was found at the cecum. The opening was medium sized. There was mild diverticulosis noted in the sigmoid colon with associated angulation and colonic spasm. A polypoid shaped sessile polyp measuring 1 cm in size was found in the proximal ascending colon. Moderate sized internal and external hemorrhoids were found. Retroflexed views revealed medium hemorrhoids. No old blood nor stigmata of active bleeding noted. The scope was then completely withdrawn from the patient and the procedure terminated. ADVERSE EVENTS: There were no complications. IMPRESSIONS: 1. Medium sized diverticulum at the edge of the cecum 2. Mild diverticulosis in the sigmoid colon (probable resolved diverticular bleed) 3. 1 cm sessile polyp in the proximal ascending colon (not remove in setting of acute GI bleeding with hgb 6.2) 4. Moderate sized internal and external hemorrhoids 5. Intubation to cecum 6. No old blood nor stigmata of active bleeding noted. RECOMMENDATIONS: Probiotics qd for 3 months Chew all food well RECALL: Return in 1 month(s) for Colonoscopy (ascending colon polyp removal). Shawn Alva Dr eSigned: Shawn Alva Dr 08/31/2019 9:36 AM cc: CPT CODES: ICD9 CODES: 1. 455.5 External hemorrhoids with other complication 2. 455.9 Residual hemorrhoidal skin tags 3. 562.10 Diverticulosis of colon (without mention of hemorrhage) 4. 211.3 Benign neoplasm of colon PATIENT NAME: Elida PradhanAshly MR#: [id number]
[2019-08-31] MEDS: FUROSEMIDE 40 MG TABLET PO SCH ×2 (10:44→17:00)
[2019-08-31] MEDS: BETHANECHOL 10 MG TAB PO SCH ×3 (10:45→15:32)
[2019-08-31] MEDS: VENLAFAXINE HCL XR 75 MG CAP PO SCH (10:45)
[2019-08-31] MEDS: predniSONE 5 MG TAB PO SCH (11:14)
[2019-08-31] MEDS ORDERED: HYDRALAZINE HCL 20 MG/ML VIAL IV PRN (14:48)
[2019-08-31] MEDS: CODEINE 30MG/APAP 300MG TAB PO PRN (14:50)
[2019-08-31 16:53] VITALS: O2SAT 98
[2019-08-31 17:36] VITALS: TEMP 97.7
[2019-08-31] MEDS: DIAZEPAM 5 MG TABLET PO PRN (18:02)
[2019-08-31 18:37] VITALS: BP 127/75
--- NOTE | 2019-08-31 20:12 | P.PN ---
Subjective Date of Service: 10/01/19 Chief Complaint: Rectal bleeding Subjective: Improving (Pt reports shortness of breath improved. Had lots of urine output yesterday. Pt was retaining urine and was straight cathed for retention. Pt agreed to get a colonoscopy) Review of Systems General: Unremarkable Eyes: Unremarkable ENT: Unremarkable Respiratory: SOB with Excertion Cardiovascular: Unremarkable Genitourinary: Unremarkable Musculoskeletal: Unremarkable Integumentary: Unremarkable Neurological: Unremarkable Physical Examination - Vital Signs Temperature: 97.7 F Blood Pressure: 127/75 Pulse: 121 Respirations: 22 Pulse Ox (%): 100 - Physical Exam General: Alert, Oriented x3 HEENT: Atraumatic, PERRLA, EOMI Neck: Supple, JVD not distended Respiratory: Normal air movement, Diminished Cardiovascular: Regular rate/rhythm, Normal S1 S2, Edema Capillary refill: <2 Seconds Gastrointestinal: Normal bowel sounds, No tenderness Musculoskeletal: No erythema, No tenderness, No warmth Integumentary: No rashes - Studies Medications List Reviewed: Yes Assessment & Plan - Problems (Diagnosis) (1) Anemia due to blood loss, chronic Status: Acute (2) Lower GI bleed Status: Acute (3) PATRICIA (acute kidney injury) Onset Date: 12/07/16 Status: Acute (4) COPD exacerbation Onset Date: 07/09/16 Status: Acute (5) UTI (urinary tract infection) Onset Date: 12/07/16 Status: Acute Qualifiers: Urinary tract infection type: site unspecified Hematuria presence: without hematuria Qualified Code(s): N39.0 - Urinary tract infection, site not specified Physician Review Additional Text: PLAN PATRICIA most likely obstructive uropathy due to percieved symptoms of urinary retention; improving Straight cath fro retention >250cc Agree with starting of bethanecol for bladder retenion Continue lasix. Pt to discharge to SNF post EGD and follow up in 2-3 weeks. Pt scheduled for EGD. Primary team to manage other chronic conditions
--- NOTE | 2019-08-31 20:56 | CON ---
Date of Consultation: 08/31/2019 Reason For Consultation: Hematochezia with severe anemia, hemoglobin 6.2. History Of Present Illness: This patient is an 83-year-old white female with history of hypertension , coronary disease, COPD, gastric reflux disease, depression, atrial fibrillation, hypothyroidism. Vidhi duffy is at hospital due to hematochezia, found to have a low hemoglobin and declined all the way do wn to 6.2, status post transfusions. Currently feeling better. Patient says she has never had a col onoscopy. She also reports right lower quadrant pain. She had sepsis with a white count of 12.2 on admission, now down to 11.7, polys up to 81%, now down to 69% with the addition of IV ceftriaxone ove rnight. No problems with probable urinary tract infection by lab review. Past Medical History: Significant for coronary disease, hypertension, COPD, gastric reflux disease, depression, atrial fibrillation, hypothyroidism, recurrent UTIs, tonsillectomy and adenoidectomy and bilateral cataract surgeries. Allergies: TO CIPROFLOXACIN AND LEVOFLOXACIN. Home Medications: Include Remeron, Tylenol , Tylenol No. 3, albuterol inhalers, ProAir inh aler, Eliquis, Valium, Fleet's enemas, ipratropium, loperamide, loratadine, Maalox, milk of magnesia, Lopressor, Chloraseptic, saline nose sprays, venlafaxine, guaifenesin, Tapazole, prednisone, and Bro norman. Social History: She is , 3 children. Quit tobacco in 1980s, not now. No alcohol. Family History: Father of Bright's disease, kidney disease. Mother of stroke at the age o f 94. There is a brother with esophageal and colon cancer. Review of Systems: Patient has hematochezia, right lower quadrant pain, some occasional lightheadedness and dizziness sh e reports. She denies any hematemesis, coffee-grounds emesis, melena, hematuria, hemoptysis, chest p ain, shortness of breath, seizure, syncope, lower extremity, backaches, muscle aches, joint aches. S he does have depression, but no anxiety. No seizure or syncope. Physical Examination: Vital Signs: Patient is 5 foot, 125 pounds. BMI of 38.8 kg/m2. She is 97.3 degrees Fahrenheit, pul se 74, respirations 15, blood pressure 174/61, O2 saturation 100%. General: She is an obese female, lying in bed, in no acute distress. HEENT: Normocephalic, atraumatic. Anicteric. Pupils equal, round, and reactive to light. Extraocu lar movements are intact. Oropharynx clear. Neck: Supple. No masses. Respirations: Clear to auscultation bilaterally. Cardiac: Regular rate and rhythm. No gallops or rubs. Abdomen: Positive bowel sounds. Soft, nondistended, may be some mild tenderness in the right lower quadrant, but no peritoneal or Borden sign. No rebound. No guarding. Obese. Extremities: No clubbing, cyanosis. Mild edema, 1 to 2+ pulses. Neuro: Alert and oriented x3. Able to move all extremities. Laboratory Data: Patient has a white count of 11.7, down from 12.2 yesterday, hematocrit 30, mean of 10.1, up from 6.2 on the night, platelet count of 361. Polys of 69%, lymphocytes 21%, monocytes 15% , eosinophils 3%. Patient has sodium of 140, potassium 3.3, chloride 99, bicarb 33, BUN 13, creatini ne of 1.4, glucose 109, calcium 8.3, total bilirubin 0.4, AST of 12, ALT of 13, alkaline phosphatase 69, total protein 7.0, albumin 3.2. UA showed 1+ blood, 2+ leukocyte esterase with 5 to 10 white blo od cells, less than 5 rbc's, less than 5 squamous epithelial cells, less than 20 bacteria, negative p rotein, otherwise negative. Impression: 1.Hematochezia. 2.Severe anemia secondary to gastrointestinal bleeding with hematochezia. Hemoglobin down to 6.2, n ow back up to 10.1 with transfusion on sepsis. White count of 12.2 down to 11.7, polys 81% on admiss ion down to 69% with IV ceftriaxone for urinary tract infection. 3.History of hypertension, coronary disease, chronic obstructive pulmonary disease, gastric reflux d isease, depression, atrial fibrillation, hypothyroidism, recurrent urinary tract infections, tonsille ctomy, and bilateral cataract surgery. Recommendations: 1.Serial H and H, and transfuse p.r.n. 2.PPI therapy. 3.Continue IV fluids and IV antibiotics. 4.Colonoscopy, EGD. 5.Check PT/PTT. 6.Check iron indices. ESTELLA/JEREMIAS Voice ID: [id number] Report ID: [id number]
== END 2019-08-31 18:20 | DRG 871 ==
LOC: ER 13:32 → ERHOLD 18:34 → 3RD-ICU 20:09 → OBSVTOIN 08-30 19:32
PROVIDERS: ADMIT Internal Medicine; ATTEND Internal Medicine
PROC: 30233N1 Transfusion of Nonautologous Red Blood Cells into Peripheral Vein, Percutaneous Approach (ICD-10-PCS; principal; 2019-08-29)
PROC: 0DJ08ZZ Inspection of Upper Intestinal Tract, Via Natural or Artificial Opening Endoscopic (ICD-10-PCS; 2019-08-31)
PROC: 0DJD8ZZ Inspection of Lower Intestinal Tract, Via Natural or Artificial Opening Endoscopic (ICD-10-PCS; 2019-08-31 09:00)
DX: A41.9 Sepsis, unspecified organism (principal); K57.31 Diverticulosis of large intestine without perforation or abscess with bleeding; I50.33 Acute on chronic diastolic (congestive) heart failure; N17.9 Acute kidney failure, unspecified; N39.0 Urinary tract infection, site not specified; J44.1 Chronic obstructive pulmonary disease with (acute) exacerbation; K92.1 Melena; K64.8 Other hemorrhoids; K64.4 Residual hemorrhoidal skin tags; K63.5 Polyp of colon; Z99.81 Dependence on supplemental oxygen; I25.10 Atherosclerotic heart disease of native coronary artery without angina pectoris; I48.91 Unspecified atrial fibrillation; Z88.1 Allergy status to other antibiotic agents; Z79.891 Long term (current) use of opiate analgesic; Z79.01 Long term (current) use of anticoagulants; Z79.899 Other long term (current) drug therapy; Z79.52 Long term (current) use of systemic steroids; K21.9 Gastro-esophageal reflux disease without esophagitis; E66.9 Obesity, unspecified; Z68.38 Body mass index [BMI] 38.0-38.9, adult; D50.0 Iron deficiency anemia secondary to blood loss (chronic); I11.0 Hypertensive heart disease with heart failure; E03.9 Hypothyroidism, unspecified; I25.2 Old myocardial infarction; Z11.59 Encounter for screening for other viral diseases; F17.200 Nicotine dependence, unspecified, uncomplicated
CPT/HCPCS: 36415; 36430; 80048; 80053; 81003; 81015; 85014; 85018; 85025; 86850; 86900; 86901; 87086; 87088; 94760; 99285; C9113; G0378; J0171; J0360; J0696; J1200; J1720; J1940; J2405; J2704; J2765; J3430; J7030; J7040; J7512; J7605; P9016; U0002

== ENCOUNTER 2020-10-31 17:24 | Inpatient (IN) | payer OTHER ==
--- OUTSIDE RECORDS SUMMARY | 2020-10-31 17:28 | XMS REPORT | Continuity of Care Document ---
:1935 Author Organization [facility] t Address [address] [place] [address] Care Team Providers Name Role Phone GAYLE OLIVEIRA Attending Clinician Unavailable YOVANY ELLINGTON Attending Clinician Unavailable MADELINE BONILLA Attending Clinician Unavailable DOWELL Attending Clinician Unavailable HZAEL PIERCE Admitting Clinician Unavailable YOVANY ELLINGTON Admitting Clinician Unavailable MADELINE BONILLA Admitting Clinician Unavailable DOWELL Admitting Clinician Unavailable Problems Condition Condition Condition Status Onset Resolution Last Treating Co mments Source Name Details Category Date Date Treatment Clinician Date Atrial Atrial Disease Active 2019- [facility] fibrillati fibrillati 3-22 Sherine kes - on on 00:00: Medical 00 [place] Chronic Chronic Disease Active 2019-[address] [facility] anticoagul anticoagul 3-22 Sherine kes - ation ation 00:00: Medical 00 [place] Acute Acute Disease Active 2019- [facility] blood loss blood loss 3-22 Sherine kes - anemia anemia 00:00: Medical 00 [place] Acute Acute Disease Active 2020-[address] [facility] lower GI lower GI 3-22 [facility] bleeding bleeding 00:00: Medica l 00 [place] Hematochez Hematochez Disease Active 2019-[address] ia ia 8-10 [facility] - 00:[facility]: Medical 00 [place] GIB GIB Disease Active 2019-[address] [facility] (gastroint (gastroint 6-16 Sherine kes [...] on 0-21 [facility] 00:[facility]: Medical 00 [place] Hyperthyro Hyperthyro Disease Active 2016-[address] idism idism 0-21 [facility] - 00:[facility]: Medical 00 [place] COPD COPD Disease Active 2016-[address] [facility] (chronic (chronic 0-21 [facility] - obstructiv obstructiv 00:00: Me dical e e 00 Center pulmonary pulmonary disease) disease) Coronary Coronary Disease Active 2016[facility] artery artery 0-21 [facility] - disease disease 00:00: Medical 00 [place] Headache Headache Disease Active 2016-03 [facility] Medical 00 [place] Leukocytos Leukocytos Disease Active 2016-[address] is is 0-21 [facility] - 00:00: Medical 00 [place] Word Word Disease Active 2016-[address] [facility] finding finding 0-21 [facility] - difficulty difficulty 00:00: Me dical 00 Center Allergies, Adverse Reactions, Alerts Allergy Allergy Status Severity Reaction(s) Onset Inactive Treating Comm ents Source Name Type Date Date Clinician Ciproflo Propensi Active [facility] xacin ty to 6-16 [facility] - adverse 00:00: Medical reaction 00 [place] Levoflox Propensi Active Diarrhea, [facility] acin ty to Rash 8-18 [facility] - adverse 00:00: Medical reaction 00 [place] Social History Social Habit Start Date Stop Date Quantity Comments Source History [facility] - Alcohol Std Drinks Medica l Center History [facility] - Alcohol Binge Medical [place] [facility] Sex Assigned At [facility] Cigarettes smoked 2019-06-11 2019-06-[address] [facility] [address] Thacker - current (pack per 00:00:00 00:00:00 Medical Center day) - Reported Tobacco use and 2019-06-11 2019-06-11 [address] [facility] Basurto kesera - exposure 00:00:00 00:00:00 Medical Center Alcohol intake 2019-06-11 2019-06-[address] [facility] [address] Basurtok es - 00:00:00 00:00:00 non-drinker of Medical Ce nter alcohol (finding) History SDOH 2018-10-28 2018-10-[address] [facility] - Alcohol Frequency 00:00:00 00:00:00 Medical Center Smoking Status Start Date Stop Date Source Former smoker 2019-06-11 00:00:00 2019-06-11 00:00:[address] [facility] Medications Ordered Filled Start Stop Current Ordering Indication Dosage Frequency Signature Comments Components Source Medication Medication Date Date Medication? Clinician (SIG) Name Name psyllium 2019- Yes Hemorrhoids 1{packe QD Take [address] (METAMUCIL 3-26 , t} packet by Luke s - SUGAR-FREE) 00:00: unspecified mouth Medical 3.4 gram [address] packet type albuterol 2019-0 Yes 2{puff} Inhale [address] HFA (PROAIR 3-25 puffs by Luke s - HFA) 90 14:36: mouth via Medic al mcg/actuati 13 inhaler Cente r on inhaler every 6 (six) hours as needed for Wheezing. diazePAM 2019-0 Yes 5mg Take [address] (VALIUM) 5 3-25 by mouth 2 Sherry es - MG tablet 14:36: (two) Medical 13 times Center daily as needed for Anxiety. venlafaxine 2019-0 Yes 75mg QD Take [address] [facility] (EFFEXOR-XR 3-25 by mouth Luke s - ) 75 MG 24 14:36: daily. Medic al hr capsule 13 Center predniSONE 0 Yes 5mg QD Take [address] (DELTASONE) 3-25 by mouth Luke s - 5 MG tablet 14:36: daily. Medi bessy 13 Center acetaminoph 2019-0 Yes 1{tbl} Take [address] en-codeine 3-25 tablet by Luke s - (TYLENOL 14:36: mouth Medical #3) 300-30 13 every 4 Center mg per (four) tablet hours as needed for Pain. nystatin 2019-0 Yes Q.5D Apply [facility] (MYCOSTATIN 3-25 topically Sherry es - ) 100,000 14:36: 2 (two) Medic al unit/gram 13 times Center powder daily Under both breasts . dextrometho 2020-0 Yes 1{capsu Take [address] rphan-guaif 3-25 le} capsule by Sherine kes - enesin 14:36: mouth Medical (CORICIDIN 13 every 4 Center HBP CHEST (four) BRIGETTE-COUGH) hours as 10-200 mg needed Cap (cough). guaiFENesin 2020-0 Yes 200mg Take [address] (ROBITUSSIN 3-25 mg by [facility] - ) 100 mg/5 14:36: mouth Medica l mL syrup 13 every 6 Center (six) hours as needed for Cough. melatonin 5 2020-0 Yes 10mg QD Take [address] mg Chew 3-25 by mouth [facility] - 14:36: nightly. Medical 13 Center formoterol 2020-0 Yes 20ug Q.5D Take [address] (PERFOROMIS 3-25 mcg by [facility] - T) 20 mcg/2 14:36: nebulizati Medical mL 13 on 2 (two) Center nebulizer times solution daily. metoprolol 2020-0 Yes 50mg Q.5D Take [address] tartrate 3-25 by mouth 2 [facility] - (LOPRESSOR) 14:36: (two) Medic al 50 MG 13 times Center tablet daily. ipratropium 2020-0 Yes 500ug Take [address] (ATROVENT) 3-25 mcg by [facility]ukes - 0.02 % 14:36: nebulizati Medic al nebulizer 13 on every 6 Cent er solution (six) hours as needed for Wheezing. hydrocortis 2020-[address] [facility] one 3-25 , rectally [facility] - (ANUSOL-HC) 00:00: unspecified daily. Medical 2.5 % 00 hemorrhoid Center rectal type cream ferrous 2020-0 Yes Iron 325mg Take [address] [facility] [facility] sulfate 325 3-25 deficiency tablet [facility]ukes - (65 FE) MG 00:00: anemia due (325 mg Medical tablet 00 to chronic total) by Ce nter blood loss mouth daily with breakfast. docusate 2020-0 Yes Hemorrhoids 100mg Q.5D Take [address] sodium 3-25 , capsule [facility]ukes - (COLACE) 00:00: unspecified (100 mg Medical 100 MG 00 hemorrhoid total) by Ce nter capsule type mouth 2 (two) times daily Hold for loose stool.. furosemide 2020-0 Yes Chronic 40mg QD Take [address] (LASIX) 40 3-25 diastolic tablet (40 [facility] - MG tablet 00:00: heart mg total) Me dical 00 failure by mouth Center ([facility]) daily. potassium Yes Chronic 20meq QD Take [address] chloride 20 3-25 diastolic mEq by L ukes - mEq TbER 00:00: heart mouth Medical 00 failure daily. Center ([facility]) apixaban Yes 2.5mg Q.5D Take [address] (ELIQUIS) 6-17 tablet [facility] - 2.5 mg Tab 00:00: (2.5 mg Medi bessy tablet 00 total) by Center mouth 2 (two) times daily. methIMAzole 2016-03 Yes 15mg QD Take 1.[address] (TAPAZOLE) 0-25 tablets [facility] - 10 MG 00:00: (15 mg Medical tablet 00 total) by Center mouth daily. Immunizations Ordered Immunization Filled Immunization Date Status Commen ts Source Name Name Pneumococcal 2017-01-[address] [facility] - Polysaccharide 00:00:00 Medical Ce nter (Pneumovax) Procedures This patient has no known procedures. Plan of Care Planned Activity Planned Date Details Comments Source Future Scheduled 2019-11-[address] [facility] - Test 00:00:00 (#1) [code = [facility] INFLUENZA VACCINE (#1)] Future Scheduled 2019-03-[address] [facility] - Test 00:00:00 (12+) [code = [facility] DEPRESSION SCREENING (12+)] Future Scheduled 1999-10-[address] [facility] - Test 00:00:00 WELLNESS (YEAR 2 or [facility] FIRST YEAR if no IPPE) [code = MEDICARE ANNUAL WELLNESS (YEAR 2 or FIRST YEAR if no IPPE)] Results Test Description Test Time Test Comments Results Result Comments Source SARS-COV2/RT-PCR ([facility]) 2019-08-30 03:23:00 Test Item Value Reference Range Interpretation Comme nts SARS-COV2/RT-PCR (test code = 7840023) Not Detected Not Detected, N egative SARS-COV-2 PERFORMING LAB (test code = [facility] 1622117) Negative results do not preclude SARS-CoV-2 infection and should not be used as the sole basis for patient management decisions. Negative results must be combined with clinical observations, patient history, and epidemiological information. A false negative result may occur if a specimen is improperly collected, transported or handled.The limit of detection for this assay is 250 copies/mL.This SARS CoV-2 test is a rapid, real-time RT-PCR test intended for the qualitative detection of nucleic acid from SARS-CoV-2 in a nasopharyngeal swab specimen collected from individuals suspected of COVID-19 by their healthcare provider.This test has not been Food and Drug Administration (FDA) cleared or approved and has been authorized by FDA under an Emergency Use Authorization (EUA). This EUA will be effective until the declaration that circumstances exist justifying the authorization of the emergency use of in vitro diagnostic tests for detection and/or diagnosis of COVID-19 is terminated under Section 564(b)(2) of the Act or the EUA is revoked under Section 564(g) of the Act.Fact Sheet for Healthcare Pro viders:https://www.[employer]/Documents/Xpert%20Xpress%20SARS%20CoV-2/Fact%20Sh eets/302-3802%40EMXD-WPT-9%20HEALTHCARE%20PROVIDERS%20FACT%20SHEET.pdfFact Sheet for Healthcare Patients:https://www.[employer]/Documents/Xpert%20Xpress%20SARS%20CoV-2/Fact%20Sheets/302-3801%20SARS-COV -2%20PATIENT%20FACT%20SHEET.pdfPerforming Laboratory:[facility], [place] [address]DTNNI METABOLIC [id number] 04:56:00 Test Item Value Reference Range Interpretation Comments SODIUM (BEAKER) 140 meq/L 136-145 (test code = 381) POTASSIUM (BEAKER) 4.0 meq/L 3.5-5.1 (test code = 379) CHLORIDE (BEAKER) 105 meq/L 98-107 (test code = 382) CO2 (BEAKER) (test 28 meq/L 22-29 code = 355) BLOOD UREA NITROGEN 15 [...] S NOT APPLICABLE FOR DIALYSIS PATIEN TS. Curt[employer]eller [employer] ID - CONNOR MHEMOGLOBIN AND [id number] 04:27:00 Test Item Value Reference Range Interpretation Comments HEMOGLOBIN (BEAKER) (test code = 8.8 GM/DL 11.2-15.7 L 410) HEMATOCRIT (BEAKER) (test code = 28.1 % 34.1-44.9 L 411) [employer] ID - [id number] AND [id number] 20:34:00 Test Item Value Reference Range Interpretation Comments HEMOGLOBIN (BEAKER) (test code = 8.0 GM/DL 11.2-15.7 L 410) HEMATOCRIT (BEAKER) (test code = 25.7 % 34.1-44.9 L 411) [employer] ID - [id number] AND [id number] 09:47:00 Test Item Value Reference Range Interpretation Comments HEMOGLOBIN (BEAKER) (test code = 7.3 GM/DL 11.2-15.7 L 410) HEMATOCRIT (BEAKER) (test code = 24.1 % 34.1-44.9 L 411) [employer] ID - [id number] W/PLT COUNT & AUTO [id number] 05:18:00 Test Item Value Reference Range Interpretation [...] 0-1 PERCENT (BEAKER) (test code = 2801) [id number] 14:34:00 Test Item Value Reference Range Interpretation Comments FERRITIN (BEAKER) (test code = 361) 10 ng/mL 5-275 [employer] ID - BSIRON, TIBC, % SAT. (WITHOUT FERRITIN)2019-06-12 14:18:00 Test Item Value Reference Range Interpretation Comments IRON (BEAKER) (test code = 547) 16.0 ug/dL 40.0-160.0 L TOTAL IRON BINDING CAPACITY 286 ug/dL 250-450 (BEAKER) (test code = 769) IRON % SATURATION (2) (BEAKER) 6 % 20-55 L (test code = 3960) [employer] ID - BSHEMOGLOBIN AND [id number] 13:56:00 Test Item Value Reference Range Interpretation Comments HEMOGLOBIN (BEAKER) (test code = 7.2 GM/DL 11.2-15.7 L 410) HEMATOCRIT (BEAKER) (test code = 23.2 % 34.1-44.9 L 411) [employer] ID - [id number] 06:09:00 Test Item Value Reference Range Interpretation Comments MAGNESIUM (BEAKER) (test code = 2.2 mg/dL 1.6-2.6 627) [employer] ID - PIAYA LBASIC METABOLIC [id number] 06:09:00 Test Item Value Reference Range Interpretation [...] S NOT APPLICABLE FOR DIALYSIS PATIEN TS. [employer] ID - PIAYA LCBC W/PLT COUNT & AUTO [id number] 05:34:00 Test Item Value Reference Range Interpretation [...] PERCENT (BEAKER) (test code = 2801) TROPONIN [id number] 00:15:00 Test Item Value Reference Range Interpretation [...] failure, acidosis, acute neurological disease, and persistent tachyarrhythmia.C[employer] ID - LEANDRA LHEMOGLOBIN AND [id number] 23:53:00 Test Item Value Reference Range Interpretation Comments HEMOGLOBIN (BEAKER) (test code = 7.0 GM/DL 11.2-15.7 L 410) HEMATOCRIT (BEAKER) (test code = 22.2 % 34.1-44.9 L 411) [employer] ID - SantinoTROPONIN [id number] 19:14:00 Test Item Value Reference Range Interpretation [...] failure, acidosis, acute neurological disease, and persistent tachyarrhythmia.C[employer] ID - RAVIN WBASIC METABOLIC [id number] 19:09:00 Test Item Value Reference Range Interpretation [...] S NOT APPLICABLE FOR DIALYSIS PATIEN TS. [employer] ID - RAVIN [id number] 19:07:00 Test Item Value Reference Range Interpretation Comments MAGNESIUM (BEAKER) (test code = 2.1 mg/dL 1.6-2.6 627) [employer] ID - RAVIN WCBC W/PLT COUNT & AUTO [id number] 18:54:00 Test Item Value Reference Range Interpretation [...] 0-1 PERCENT (BEAKER) (test code = 2801) TISSUE [id number] 12:26:00Surgical Pathology Report Case: [id number] Authorizing Provider: Zarina Murrell MD Collected: 10/29/2018 1228 Ordering Location: [address] Received: 10/31/2018 0811 Service Pathologist: Amanda [...] MALIGNANCY PRESENT Signing Pathologist Direct Phone Line: [phone] signed by Amanda Guajardo MD on 2018 at 12:26 [id number] X 2Pre and postop diagnosis: hematocheziaA. Polyp, [...] entirely submitted in B1-B3. CG/pl PERFORMEDBASIC METABOLIC [id number] 05:20:00 Test Item Value Reference Range Interpretation [...] APPLICABLE FOR DIALYSIS PATIEN TS. HEMOGLOBIN AND [id number] 04:49:00 Test Item Value Reference Range Interpretation Comments HEMOGLOBIN (BEAKER) (test code = 10.0 GM/DL 11.2-15.7 L 410) HEMATOCRIT (BEAKER) (test code = 33.3 % 34.1-44.9 L 411) BASIC METABOLIC [id number] 07:15:00 Test Item Value Reference Range Interpretation [...] APPLICABLE FOR DIALYSIS PATIEN TS. HEMOGLOBIN AND [id number] 06:27:00 Test Item Value Reference Range Interpretation Comments HEMOGLOBIN (BEAKER) (test code = 9.6 GM/DL 11.2-15.7 L 410) HEMATOCRIT (BEAKER) (test code = 31.4 % 34.1-44.9 L 411) TROPONIN [id number] 14:57:00 Test Item Value Reference Range Interpretation [...] acute neurological disease, and persistent tachyarrhythmia.HEMOGLOBIN AND [id number] 14:30:00 Test Item Value Reference Range Interpretation Comments HEMOGLOBIN (BEAKER) (test code = 10.4 GM/DL 11.2-15.7 L 410) HEMATOCRIT (BEAKER) (test code = 33.6 % 34.1-44.9 L 411) POCT-GLUCOSE [id number] 13:29:00 Test Item Value Reference Range Interpretation Comments POC-GLUCOSE METER 123 mg/dL 70-[address] [facility] 6720 (BEAKER) (test code = TRUE BEAN ID [id number]) [id number] TROPONIN [id number] 07:54:00 Test Item Value Reference Range Interpretation [...] and persistent tachyarrhythmia.RAD, CHEST, 1 VIEW, NON [id number] 06:59:00Reason for exam:->chest painShould this be performed [...] No acute bony abnormality. Signed: Ankush Munoz MDReport Verified Date/Time: 10/29/2018 06:59:47 Reading Location: [facility] C013Y CT Body Reading Room HEMOGLOBIN AND [id number] 06:05:00 Test Item Value Reference Range Interpretation Comments HEMOGLOBIN (BEAKER) (test code = 10.9 GM/DL 11.2-15.7 L 410) HEMATOCRIT (BEAKER) (test code = 36.0 % 34.1-44.9 411) BASIC METABOLIC [id number] 03:58:00 Test Item Value Reference Range Interpretation [...] NOT APPLICABLE FOR DIALYSIS PATIEN TS. TROPONIN [id number] 02:12:00 Test Item Value Reference Range Interpretation [...] failure, acidosis, acute neurological disease, and persistent tachyarrhythmia.[id number] 02:06:00 Test Item Value Reference Range Interpretation Comments MAGNESIUM (BEAKER) (test code = 2.1 mg/dL 1.6-2.6 627) CBC W/PLT COUNT & AUTO [id number] 20:23:00 Test Item Value Reference Range Interpretation [...] (BEAKER) (test code = 2801) BASIC METABOLIC [id number] 05:58:00 Test Item Value Reference Range Interpretation [...] NOT APPLICABLE FOR DIALYSIS PATIEN TS. CBC (HEMOGRAM ONLY)2018-09-05 05:33:00 Test Item Value [...] WBC 0-0 (BEAKER) (test code = 413) THROMBOELASTOGRAPH (TEG)2018-09-04 20:35:00 Test Item Value [...] (test 2.2 % 0.0-5.0 code = 1414) HEMOGLOBIN AND [id number] 18:46:00 Test Item Value Reference Range Interpretation Comments HEMOGLOBIN (BEAKER) (test code = 8.6 GM/DL 11.2-15.7 L 410) HEMATOCRIT (BEAKER) (test code = 27.7 % 34.1-44.9 L 411) HEMOGLOBIN AND [id number] 17:10:00 Test Item Value Reference Range Interpretation Comments HEMOGLOBIN (BEAKER) (test code = 7.6 GM/DL 11.2-15.7 L 410) HEMATOCRIT (BEAKER) (test code = 24.4 % 34.1-44.9 L 411) T4, [id number] 14:16:00 Test Item Value Reference Range Interpretation Comments FREE T4 (BEAKER) (test code = 655) 1.14 ng/dL 0.70-1.48 TSH/FREE T4 IF [id number] 13:15:00 Test Item Value Reference Range Interpretation [...] WBC 0-0 (BEAKER) (test code = 413) [id number] 04:37:00 Test Item Value Reference Range Interpretation Comments MAGNESIUM (BEAKER) (test code = 1.8 mg/dL 1.6-2.6 627) BASIC METABOLIC [id number] 04:37:00 Test Item Value Reference Range Interpretation [...] APPLICABLE FOR DIALYSIS PATIEN TS. HEPATIC FUNCTION [id number] 04:37:00 Test Item Value Reference Range Interpretation [...] (test code = 10 U/L 6-55 347) [id number] 04:33:00 Test Item Value Reference Range Interpretation [...] 0-0 (BEAKER) (test code = 413) BLOOD [id number] 00:00:00 Test Item Value Reference Range Interpretation Comments CULTURE (BEAKER) (test No growth in 5 days code = 1095) BLOOD [id number] 00:00:00 Test Item Value Reference Range Interpretation Comments CULTURE (BEAKER) (test No growth in 5 days code = 1095) CLOSTRIDIUM DIFFICILE TOXIN [id number] 17:09:00 Test Item Value Reference Range Interpretation [...] a positive result is not recommended.BASIC METABOLIC [id number] 10:06:00 Test Item Value Reference Range Interpretation [...] PATIEN TS. CBC W/PLT COUNT & AUTO [id number] 09:48:00 Test Item Value Reference Range Interpretation [...] code = 2801) RAD, FOOT, 2 VIEWS, [id number] 16:52:00Reason for exam:->pain with ambulationFINAL REPORT Radiograph [...] Peterson Verified Date/Time: 01/12/2017 16:52:45 Reading Location: [address] Consult Reading Room T4, [id number] 16:26:00 Test Item Value Reference Range Interpretation Comments FREE T4 (BEAKER) (test code = 655) 1.12 ng/dL 0.70-1.48 TSH/FREE T4 IF [id number] 15:46:00 Test Item Value Reference Range Interpretation Comments THYROID STIMULATING HORMONE 0.03 uIU/mL 0.35-4.94 L (BEAKER) (test code = 772) BASIC METABOLIC [id number] 15:35:00 Test Item Value Reference Range Interpretation [...] PATIEN TS. CBC W/PLT COUNT & AUTO [id number] 15:06:00 Test Item Value Reference Range Interpretation [...] PERCENT (BEAKER) (test code = 2801) URINE [id number] 08:21:00 Test Item Value Reference Range Interpretation [...] rods of a second typeMR, BRAIN, WITHOUT [id number] 16:03:00Reason for exam:->Ischemic Stroke EvaluationFINAL REPORT MRI [...] MDReport Verified Date/Time: 01/09/2017 16:03:04 Reading Location: [address] Neuro Reading Room URINALYSIS W/ MICROSCOPIC [...] Urine, Voided 2795) URINALYSIS W/ REFLEX URINE [id number] 15:35:00 Test Item Value Reference Range Interpretation [...] SOURCE(BEAKER) (test code = Urine, Voided 2795) [id number] 14:30:00 Test Item Value Reference Range Interpretation Comments RPR SCREEN (BEAKER) (test code = Nonreactive Nonreactive 420) HEMOGLOBIN [id number] 10:58:00 Test Item Value Reference Range Interpretation Comments HEMOGLOBIN A1C (BEAKER) (test code = 5.8 % 4.3-6.1 368) SEDIMENTATION [id number] 10:44:00 Test Item Value Reference Range Interpretation Comments SEDIMENTATION RATE, ERYTHROCYTE 52 mm/HR 0-40 H (BEAKER) (test code = 766) T4, [id number] 09:16:00 Test Item Value Reference Range Interpretation Comments FREE T4 (BEAKER) (test code = 655) 0.94 ng/dL 0.70-1.48 TSH/FREE T4 IF [id number] 08:42:00 Test Item Value Reference Range Interpretation Comments THYROID STIMULATING HORMONE 0.05 uIU/mL 0.35-4.94 L (BEAKER) (test code = 772) VITAMIN B12 AND [id number] 08:37:00 Test Item Value Reference Range Interpretation Comments VITAMIN B12 (BEAKER) (test code = 829 pg/mL 213-816 H 774) FOLATE (BEAKER) (test code = 362) 15.9 ng/mL >=7.0 [id number] 08:36:00 Test Item Value Reference Range Interpretation Comments HOMOCYSTEINE (BEAKER) (test code 10.2 umol/L 5.1-15.4 = 642) BASIC METABOLIC [id number] 08:26:00 Test Item Value Reference Range Interpretation [...] APPLICABLE FOR DIALYSIS PATIEN TS. FastingHEPATIC FUNCTION [id number] 08:26:00 Test Item Value Reference Range Interpretation [...] 6-55 347) FastingCREATINE KINASE (CK), TOTAL AND [id number] 08:26:00 Test Item Value Reference Range Interpretation Comments CREATINE KINASE TOTAL (BEAKER) 30 U/L 29-200 (test code = 380) CREATINE KINASE-MB (BEAKER) (test 0.8 ng/mL 0.0-6.6 code = 750) CREATINE KINASE-MB INDEX (BEAKER) 2.7 % (test code = 395) CK-MB Reference Range:<6.7 Normal6.7-10.0 Borderline>10.0 AbnormalFastingFastingC-REACTIVE [id number] 08:26:00 Test Item Value Reference Range Interpretation Comments C-REACTIVE PROTEIN (BEAKER) (test 1.74 mg/dL 0.00-0.50 H code = 676) FastingLIPID [id number] 08:26:00 Test Item Value Reference Range Interpretation [...] Borderline 130-159 High 160-189 Very High >=190 FastingCBC W/PLT COUNT & AUTO [id number] 07:57:00 Test Item Value Reference Range Interpretation [...] PERCENT (BEAKER) (test code = 2801) TROPONIN [id number] 07:47:00 Test Item Value Reference Range Interpretation [...]
[2020-10-31 18:18] LABS: Urine Blood 2+ (Negative); Urine Glucose Negative (Negative); Urine Protein 2+ (Negative)
[2020-10-31 18:35] LABS: Protime INR 1.27
[2020-10-31 18:38] LABS: Absolute Lymphocytes (CBC) 0.7 K/uL (0.7-4.9); Basophils % 0.2 % (0-1.3); Hematocrit 35.2 % (36.0-45.0); Lymphocytes % 6.4 % (15.3-44.8); MPV 8.4 fL (7.6-11.3); RBC Red Blood Cell Count 4.36 M/uL (3.86-4.86)
[2020-10-31] MEDS ORDERED: METOPROLOL TARTRATE 5 MG/5 ML INJ IV ONE ×2 (18:54→20:24)
[2020-10-31] MEDS ORDERED: CEFTRIAXONE/SWI 1gm 1 GM/10 ML SYR ONE (18:54)
[2020-10-31] MEDS ORDERED: DIGOXIN 0.25 MG/ML AMP ONE (18:54)
[2020-10-31 18:55] LABS: Albumin 3.1 g/dL (3.4-5.0); Bilirubin Direct 0.2 mg/dL (0-0.2); Bilirubin Total 0.4 mg/dL (0.2-1.0); Magnesium 2.5 mg/dL (1.8-2.4); Potassium 5.1 mmol/L (3.5-5.1); Protein, Total 7.7 g/dL (6.4-8.2); Troponin (Emerg Dept Use Only) 0.41 ng/mL (0.0-0.045)
[2020-10-31 19:02] LABS: Urine Bacteria LOADED /HPF (<20); Urine RBC <5 /HPF (NONE SEEN)
[2020-10-31] MEDS ORDERED: ACETAMINOPHEN 650MG/RECT SUPP PR ONE (19:06)
--- NOTE | 2020-10-31 19:20 | RAD REPORT ---
EXAM DESCRIPTION: RAD - Chest Single View - 10/31/2020 6:36 pm CLINICAL HISTORY: SOB COMPARISON: Two view chest November 2018 TECHNIQUE: AP portable chest image was obtained 10/31/2020 6:36 pm . FINDINGS: No peripheral mass or consolidation. Chronic interstitial lung pattern is present accentua leanne by shallow inspiration. No failure or volume overload identified. Mild cardiomegaly is present due to low lung volume. Heart size is not substantially different from comparison. No measurable pleural effusion and no pneumothorax. No acute bony abnormality seen. No ac [place] aortic findings suspected. IMPRESSION: No acute cardiopulmonary process. Above detailed chest findings are stable from 2019.
[2020-10-31 19:40] LABS: Blood Morphology Comment NOT SEEN (NOT SEEN); Platelet Estimate ADEQ; White Blood Cell Scan OK (OK)
--- NOTE | 2020-10-31 19:52 | RAD REPORT ---
EXAM DESCRIPTION: CT - Head Brain Wo Cont - 10/31/2020 7:28 pm CLINICAL HISTORY: MENTAL STATUS CHANGE, COVID positive COMPARISON: CT head June 2018 TECHNIQUE: Axial 5 mm thick images of the head were obtained without IV contrast. All CT scans are performed using dose optimization technique as appropriate and may include automated exposure control or mA/KV adjustment according to patient size. FINDINGS: No intracranial hemorrhage, mass, edema or shift of mid-line structures. No acute infarcti on changes seen. No cortical edema or sulcal effacement. Prominent atrophy and chronic ischemic celis es are present. Ventricles are in proportion to the volume loss. Intracranial findings are similar to 2019. Arterial calcifications are present. Mastoid air cells and visualized portions of the paranasal sinuses are clear. No acute bony findings. IMPRESSION: Negative non-contrast CT head examination for acute finding. Above detailed findings are stable back to 2019.
--- NOTE | 2020-10-31 20:01 | RAD REPORT ---
EXAM DESCRIPTION: CT - Chest Abd Pelvis Wo Con - 10/31/2020 7:28 pm CLINICAL HISTORY: elevated liver enzymes, shortness of breath, COVID positive COMPARISON: Thorax Wo Con dated 12/08/2018 TECHNIQUE: Axial 5 millimeter thick images of the chest, abdomen and pelvis were obtained without IV contrast. Oral contrast was administered. All CT scans are performed using dose optimization technique as appropriate and may include automated exposure control or mA/KV adjustment according to patient size. FINDINGS: Multinodular enlarged left lobe thyroid gland noted similar to comparison. Left lower lobe partial atelectasis present. There are airspace opacities in the left lower lobe that could be infiltrate. Partial atelectasis seen in the right lower lobe. No large mass or consolidatio n. No pneumothorax or pleural effusion. No chest wall mass or abnormal axillary lymphadenopathy seen . Mediastinal and hilar regions show no mass or lymphadenopathy. No significant cardiac finding. Pr ominent aortic calcifications are present. Esophagus is dilated and filled with fluid presumably from reflux. Dilated esophagus was present on prior imaging. No mass at the GE junction seen. The liver, spleen and pancreas show no significant findings for non contrast imaging. Gallbladder an d biliary tree are normal. No hydronephrosis or suspicious renal mass. Isodense masses and pyelonephritis cannot be excluded on non contrast imaging. No adrenal abnormalities. Urinary bladder is contracted around a Francisco cathete r. Pelvic floor laxity is seen. No dilated bowel loops or focal ball bowel wall thickening. Appendix is normal. No free air, free flu id or inflammatory stranding. No hernia, mass or bulky lymphadenopathy. No significant bone or vascular finding. Infrarenal aorta is 2.4 cm in diameter. No displaced calcifi cations. IMPRESSION: Suspected left lower lobe pneumonia. No other significant lung parenchymal finding. Hist ory indicates the patient is COVID positive. Single lobe abnormality is not a classic COVID pneumonia presentation. Non COVID pneumonia etiology should also be considered. CT abdomen and pelvis imaging shows no acute or significant finding. CT abdomen and pelvis imaging shows no significant or suspicious finding.
[2020-10-31 20:10] LABS: SARS-COV-2 RT PCR POSITIVE (NEGATIVE)
[2020-10-31] MEDS ORDERED: NA CHLORIDE 0.9% 1,000 ML ONE (20:25)
[2020-10-31] MEDS ORDERED: NA CHLORIDE 0.9% 250 ML ONE (20:33)
[2020-10-31] MEDS ORDERED: AZITHROMYCIN 500 MG INJ IVPB ONE (20:33)
--- NOTE | 2020-10-31 21:01 | ER ---
Nurse's Notes [facility] Name: Elida Pradhan Age: 84 yrs Sex: Female : 1935 Arrival Date: 10/31/2020 Time: 17:27 Bed 15 Private MD: Diagnosis: Chronic atrial fibrillation;Other specified sepsis;UTI/ Urinary tract infection, site not specified;SARS-associated coronavirus as the cause of diseases classified elsewhere;Other pneumonia, unspecified organism Presentation: 10/31 18:14 Chief complaint: EMS states: AMS. pt from [facility]. per EMS pt has been "altered for tr6 2 days but has been more altered today." currently pt is only gurgling/ moaning and not responding to questions. Coronavirus screen: At this time, unable to obtain information related to travel outside the [place] diarrhea, fatigue, fever. Ebola Screen: No symptoms or risks identified at this time. Initial Sepsis Screen: Does the patient meet any 2 criteria? Altered Mental Status. HR > 90 bpm. Yes Does the patient have a suspected source of infection? No. Patient's initial sepsis screen is negative. Risk Assessment: Do you want to hurt yourself or someone else? Unable to obtain. Onset of symptoms is unknown. 18:14 Method Of Arrival: EMS: [facility] tr6 18:14 Acuity: TALYA 2 tr6 Triage Assessment: 18:17 General: Appears distressed, uncomfortable, obese, unkempt, Behavior is anxious, tr6 crying. Pain: Complains of pain in back. EENT:. EENT: No deficits noted. Neuro: Level of Consciousness is awake, alert, confused, Oriented to unable to obtain. pt does not answer questions. Cardiovascular: Rhythm is atrial fibrillation with rapid ventricular response. Respiratory: Airway is patent Trachea midline Respiratory effort is even, GI: Abdomen is round distended, obese, Rectal exam: Hemorrhoids noted, Stools are reported to be loose, Last BM was October 31, 2020. : Urine is cloudy, bales inserted by RN. Derm: Skin is fragile, is thin, redness noted in pts groin area and blanchable redness on pts b/l glutes. Musculoskeletal: unable to fully assess. Historical: - Allergies: 18:17 Cipro; tr6 18:17 Levaquin; tr6 - PMHx: 18:17 COPD; CHF; Anxiety; Dementia; Depression; DYSPHAGIA; GI Bleed; Hypertension; Myocardial tr6 infarction; Hypothyroidism; afib; - Social history:: Smoking status: unknown. - Code Status:: Full code. Screenin:32 Abuse screen: Denies threats or abuse. Denies injuries from another. Nutritional ms4 screening: No deficits noted. Tuberculosis screening: No symptoms or risk factors identified. Fall Risk Fall in past 12 months (25 points). Secondary diagnosis (15 points) IV access (20 points). Ambulatory Aid- Crutches/Cane/Walker (15 pts). Gait- Impaired (20 pts.). Mental Status- Overestimates/Forgets Limitations (15 pts.). Total Howell Fall Scale indicates High Risk Score (45 or more points). Fall prevention measures have been instituted. Side Rails Up X 2 Placed Close to Nursing Station 1:1 Attendant Assigned. Assessment: 18:47 Reassessment: incontinence care done. tr6 20:00 Reassessment: Patient and/or family updated on plan of care and expected duration. Pain ms4 level reassessed. General: Appears distressed. Pain: Denies pain. Neuro: Level of Consciousness is confused. Cardiovascular: Rhythm is sinus tachycardia. Respiratory: Reports shortness of breath cough that is. 11/01 00:55 Reassessment:. ms4 Vital Signs: 10/31 18:14 BP 134 / 69; Pulse 152; Resp 20; Temp 103.8(R); Pulse Ox 98% on 3 lpm NC; tr6 20:00 Weight 86.18 kg (R); bb 20:32 BP 155 / 111; Pulse 117; Resp 22; Temp 101.1; Pulse Ox 100% 2 lpm ; Weight 90.72 kg; ms4 Pain 0/10; 23:00 BP 125 / 83; Pulse 135; Resp 20; Pulse Ox 97% ; ms4 ED Course: 17:27 Patient arrived in ED. tr6 17:31 Donato Go PA is PHCP. cp 17:31 Geovani Medel MD is Attending Physician. cp 18:14 Yasmeen Fisher, HARSHAL is Primary Nurse. tr6 18:17 Triage completed. tr6 18:35 XRAY Chest (1 view) In Process Unspecified. EDMS 18:35 Inserted saline lock: 18 gauge in right antecubital area, using aseptic technique. tr6 Blood collected. 18:36 Bales cath inserted, using sterile technique, 16 Fr., by ga, balloon inflated, to tr6 gravity drainage, urine specimen collected. 18:46 No provider procedures requiring assistance completed. tr6 18:47 Oxygen administration via nasal cannula \\T\\ 3L/min. tr6 18:47 Patient has correct armband on for positive identification. Placed in gown. Bed in low tr6 position. Call light in reach. Side rails up X2. cardiac monitor on. Pulse ox on. NIBP on. Door closed. Noise minimized. Visitors limited. Lights dimmed. Moved to private room. Warm blanket given. Diet: Patient is NPO. 19:28 CT Head Brain wo Cont In Process Unspecified. EDMS 19:28 CT Chest Abdomen Pelvis W/O Contrast In Process Unspecified. EDMS 20:57 Jimmie Phelps PA is Hospitalizing Provider. cp 11/01 02:42 Luis Raymond is Hospitalizing Provider. cp 07:46 Patient admitted, IV remains in place. tr6 18:08 \\[id number]\\[id number] initiated a transfer with DANA Liao from the [facility] Transfer axton/ \\[id number]\\[id number] eb administrative approval given by DANA Liao/ patient has been accepted to [facility] A bed 12/ Dr. Gallagher has accepted the patient in transfer/ report to be called to [phone]. Administered Medications: 10/31 18:37 Drug: Metoprolol 5 mg Route: IVP; Site: right antecubital; tr6 18:37 Drug: Rocephin - (cefTRIAXone) 1 grams Route: IVPB; Infused Over: 30 mins; Site: right tr6 antecubital; 18:46 Drug: Acetaminophen Suppository 650 mg Route: GA; tr6 11/01 01:18 Follow up: Response: No adverse reaction ms4 08 20:00 Not Given (Physician Discretion): Magnesium Sulfate 1 grams IVPB once over 1 hrs cp 20:08 Drug: Digoxin 0.5 mg Route: IVP; Site: right antecubital; ms4 20:08 Follow up: Response: No adverse reaction ms4 20:30 Drug: Metoprolol 5 mg Route: IVP; Site: right antecubital; ms4 11/01 01:17 Follow up: Response: No adverse reaction ms4 10/31 20:30 Drug: Zithromax (azithromycin) 500 mg Route: IVPB; Infused Over: 1 hrs; Site: right ms4 antecubital; 20:31 Drug: NS 0.9% (30 ml/kg) 30 ml/kg {Note: per MD only give one bolus .} Route: IV; Rate: ms4 bolus; Site: right antecubital; 23:40 CANCELLED (per md ): Aspirin Suppository 600 mg GA once ms4 23:55 Drug: Lopressor (metoprolol) 5 mg Route: IVP; Site: right antecubital; ms4 11/01 01:18 Follow up: Response: No adverse reaction ms4 10/31 23:58 CANCELLED (Duplicate Order): Tylenol Suppository 650 mg GA once ms4 23:58 Drug: Tylenol 650 mg Route: PO; ms4 11/01 01:17 Follow up: Response: No adverse reaction ms4 10/31 23:58 Drug: Metoprolol 50 mg Route: PO; ms4 11/01 01:17 Follow up: Response: No adverse reaction ms4 10/31 23:58 Drug: NS 0.9% 1000 ml Route: IV; Rate: 1 bolus; Site: right antecubital; ms4 11/01 01:19 CANCELLED (Duplicate Order): Metoprolol 5 mg IVP once; Hold for SBP <100 or HR <60. ms4 Outcome: 10/31 21:00 Decision to Hospitalize by Provider. 11/01 07:45 Admitted to tr6 Condition: stable Instructed on the need for admit. 22:26 Patient left the ED. tr6 Signatures: Dispatcher [employer] EDMS Camille Nicholas RN RN bb Page, Corey, PA PA Rosalinda Heredia Tiffany, RN RN tr6 Pepper Nieto RN RN ms4 Corrections: (The following items were deleted from the chart) 10/31 18:46 18:14 BP 134 / 69; Pulse 152bpm; Resp 20bpm; Pulse Ox 98% 3 lpm Nasal Cannula; tr6 tr6 08/13 07:45 10/31 18:17 Derm: Skin is fragile, is thin, tr6 tr6
--- NOTE | 2020-10-31 21:01 | EDPHYS ---
Physician Documentation [facility] Name: Elida Pradhan Age: 84 yrs Sex: Female : 1935 Arrival Date: 10/31/2020 Time: 17:27 Bed 15 Private MD: ED Physician Geovani Medel HPI: 10/31 17:55 This 84 yrs old Female presents to ER via Unassigned with complaints of cp Altered Mental Status. 17:55 The patient presents with decreased mental status. Onset: The symptoms/episode cp began/occurred 2 day(s) ago. Possible causes: unknown. 17:55 Associated signs and symptoms: Pertinent positives: confusion. cp 17:55 Current symptoms: In the emergency department the patient's symptoms are unchanged from cp the initial presentation, despite EMS interventions. Patient's baseline: Neuro: not alert, Motor: no deficits, Speech: the patient makes incomprehensible sounds. Historical: - Allergies: 18:17 Cipro; tr6 18:17 Levaquin; tr6 - PMHx: 18:17 COPD; CHF; Anxiety; Dementia; Depression; DYSPHAGIA; GI Bleed; Hypertension; Myocardial tr6 infarction; Hypothyroidism; afib; - Social history:: Smoking status: unknown. - Code Status:: Full code. ROS: 18:00 Constitutional: Positive for poor PO intake, Negative for fever. cp 18:00 Neuro: Positive for altered mental status. cp 18:00 Unable to obtain ROS due to altered mental status, baseline dementia. Exam: 18:00 ECG was reviewed by the Attending Physician. cp 18:05 Constitutional: The patient appears awake, non-diaphoretic, non-toxic, well developed, cp well nourished. 18:05 Head/Face: Normocephalic, atraumatic. cp 18:05 Eyes: Pupils: equal, round, and reactive to light and accomodation, Conjunctiva: normal, no exudate, no injection, Sclera: no appreciated abnormality, Lids and lashes: appear normal, bilaterally. 18:05 ENT: External ear(s): are unremarkable, Ear canal(s): are normal, clear, TM's: dullness, bilaterally, Nose: is normal, Mouth: Lips: dry, Oral mucosa: moist, Posterior pharynx: Airway: no evidence of obstruction, patent. 18:05 Neck: ROM/movement: Meningeal signs: are not present, nuchal rigidity, is not appreciated. 18:05 Chest/axilla: Inspection: normal, Palpation: is normal, no crepitus, no tenderness. 18:05 Cardiovascular: Rate: tachycardic, Rhythm: irregular, Edema: is not appreciated, JVD: is not appreciated. 18:05 Respiratory: the patient does not display signs of respiratory distress, Respirations: intercostal retractions, are absent, shallow respirations, that is mild, Breath sounds: bronchial sounds, that are moderate, are heard diffusely, decreased breath sounds, that are mild, throughout, stridor, is not appreciated, + upper airway congestion. 18:05 Abdomen/GI: Inspection: abdomen appears normal, Palpation: abdomen is soft and non-tender, in all quadrants, involuntary guarding, is not appreciated. 18:05 Skin: cellulitis, is not appreciated, on the buttocks. 18:05 Neuro: Orientation: Not oriented to person, place, situation, Mentation: unable to follow commands, responsive to pain, Motor: moves all fours. Vital Signs: 18:14 BP 134 / 69; Pulse 152; Resp 20; Temp 103.8(R); Pulse Ox 98% on 3 lpm NC; tr6 20:00 Weight 86.18 kg (R); bb 20:32 BP 155 / 111; Pulse 117; Resp 22; Temp 101.1; Pulse Ox 100% 2 lpm ; Weight 90.72 kg; ms4 Pain 0/10; 23:00 BP 125 / 83; Pulse 135; Resp 20; Pulse Ox 97% ; ms4 MDM: 17:57 Patient medically screened. cp 18:40 Differential Diagnosis: CVA, electrolyte abnormality, hypoglycemia, intracranial bleed, cp pneumonia, sepsis, TIA, volume depletion. 20:50 Data reviewed: vital signs, nurses notes, lab test result(s), EKG, radiologic studies, cp CT scan, plain films. Physician consultation: Jimmie PIZARRO was called at 20:45, was contacted at 20:45, regarding admission, to the telemetry unit. patient's condition. 10/31 17:41 Order name: Glucose, Ancillary Testing; Complete Time: 17:57 EDMS 10/31 18:01 Order name: Basic Metabolic Panel cp 10/31 18:01 Order name: CBC with Diff cp 08/ 18:01 Order name: LFT's cp 08/ 18:01 Order name: Magnesium cp 08 18:01 Order name: NT PRO-BNP cp 08/ 18:01 Order name: PT-INR cp / 18:01 Order name: Troponin (emerg Dept Use Only) cp 08/ 18:01 Order name: AMMONIA; Complete Time: 19:00 cp 10/31 18:01 Order name: Urine Microscopic Only; Complete Time: 19:41 cp 08/ 19:42 Interpretation: Normal except: UWBC TNTC; UBACT LOADED. cp 08/ 18:01 Order name: Lactate; Complete Time: 19:00 cp 10/31 18:01 Order name: Procalcitonin; Complete Time: 19:41 cp 08/ 19:42 Interpretation: Normal except: Procalcitonin 2.61. cp / 18:01 Order name: Blood Culture Adult (2) cp 10/31 18:02 Order name: Basic Metabolic Panel; Complete Time: 19:00 EDMS 0812 19:00 Interpretation: Normal except: GLUC 142; BUN 51; CRE 2.48; GFR 18. cp 08/ 18:02 Order name: CBC with Automated Diff; Complete Time: 19:41 EDMS 10/31 19:01 Interpretation: Normal except: HGB 11.0; HCT 35.2; MCH 25.3; MCHC 31.3; RDW 15.3; VALERIA% cp 89.1; LYM% 6.4; NEUT A 9.2. 10/31 18:02 Order name: Liver (Hepatic) Function; Complete Time: 19:00 EDMS 0812 18:02 Order name: Magnesium; Complete Time: 19:00 EDMS 10/31 18:02 Order name: NT PRO-BNP; Complete Time: 19:00 EDMS 08 18:02 Order name: Protime (+INR); Complete Time: 19:00 EDMS 08 18:02 Order name: Troponin (Emerg Dept Use Only); Complete Time: 19:00 EDMS 0812 19:02 Interpretation: Abnormal: TROPED 0.41. cp / 18:18 Order name: Urine Dipstick-Ancillary; Complete Time: 18:38 EDMS 08 18:38 Interpretation: Normal except: UKET Trace; UBLD 2+; UPROT 2+; UESTR 1+. cp 10/31 19:03 Order name: Urine Culture EDMS 10/31 19:40 Order name: CBC Smear Scan; Complete Time: 19:41 EDMS 10/31 20:11 Order name: COVID-19/FLU A+B; Complete Time: 20:40 EDMS 10/31 21:11 Order name: Ptt, Activated cp 10/31 21:11 Order name: LAB Add On cp 11/01 00:28 Order name: Lactate Sepsis 2 HR Follow-up EDMS 11/01 07:08 Order name: CBC with Automated Diff EDMS 10/31 18:01 Order name: XRAY Chest (1 view); Complete Time: 19:41 cp 10/31 19:03 Order name: CT Head Brain wo Cont; Complete Time: 19:56 cp 10/31 19:03 Order name: CT Chest Abdomen Pelvis W/O Contrast; Complete Time: 20:03 cp 11/01 07:33 Order name: Lactate EDMS 11/01 07:58 Order name: Comprehensive Metabolic Panel EDMS 11/01 07:58 Order name: Phosphorus EDMS 11/01 07:58 Order name: Lipid Profile EDMS 11/01 07:58 Order name: T4 Free EDMS 11/01 07:58 Order name: Acetaminophen Level EDMS 11/01 07:58 Order name: Magnesium EDMS 11/01 07:58 Order name: Thyroid Stimulating Hormone EDMS 11/01 08:16 Order name: Hemoglobin A1c EDMS 11/01 08:30 Order name: C-Reactive Protein EDMS 11/01 08:30 Order name: Ferritin EDMS 11/01 09:55 Order name: Glucose, Ancillary Testing EDMS 11/01 10:35 Order name: US EDMS 11/01 11:09 Order name: Troponin I EDMS 11/01 12:10 Order name: Creatine Phosphokinase EDMS 11/01 13:13 Order name: Glucose, Ancillary Testing EDMS 11/01 13:59 Order name: Gram Stain--Aerobic Bottle EDMS 11/01 18:22 Order name: Glucose, Ancillary Testing EDMS 11/01 18:51 Order name: Troponin I EDMS 10/31 18:01 Order name: EKG; Complete Time: 18:02 cp 10/31 18:01 Order name: Cardiac monitoring; Complete Time: 18:14 cp 08/12 18:01 Order name: EKG - Nurse/Tech; Complete Time: 18:14 cp 10/31 18:01 Order name: IV Saline Lock; Complete Time: 18:14 cp 10/31 18:01 Order name: Labs collected and sent; Complete Time: 18:14 cp 08/12 18:01 Order name: O2 Per Protocol; Complete Time: 18:14 cp 10/31 18:01 Order name: O2 Sat Monitoring; Complete Time: 18:14 cp 10/31 18:01 Order name: Urine Dipstick-Ancillary (obtain specimen); Complete Time: 18:27 cp 10/31 18:01 Order name: Francisco; Complete Time: 18:14 cp 10/31 23:45 Order name: CONS Physician Consult EDMS EC:00 Rate is 143 beats/min. Rhythm is irregular. QRS interval is normal. QT interval is cp normal. Interpreted by me. Reviewed by me. Administered Medications: 18:37 Drug: Metoprolol 5 mg Route: IVP; Site: right antecubital; tr6 18:37 Drug: Rocephin - (cefTRIAXone) 1 grams Route: IVPB; Infused Over: 30 mins; Site: right tr6 antecubital; 18:46 Drug: Acetaminophen Suppository 650 mg Route: ND; tr6 11/01 01:18 Follow up: Response: No adverse reaction ms4 08 20:00 Not Given (Physician Discretion): Magnesium Sulfate 1 grams IVPB once over 1 hrs cp 20:08 Drug: Digoxin 0.5 mg Route: IVP; Site: right antecubital; ms4 20:08 Follow up: Response: No adverse reaction ms4 20:30 Drug: Metoprolol 5 mg Route: IVP; Site: right antecubital; ms4 13 01:17 Follow up: Response: No adverse reaction ms4 10/31 20:30 Drug: Zithromax (azithromycin) 500 mg Route: IVPB; Infused Over: 1 hrs; Site: right ms4 antecubital; 20:31 Drug: NS 0.9% (30 ml/kg) 30 ml/kg {Note: per MD only give one bolus .} Route: IV; Rate: ms4 bolus; Site: right antecubital; 23:40 CANCELLED (per md ): Aspirin Suppository 600 mg ND once ms4 23:55 Drug: Lopressor (metoprolol) 5 mg Route: IVP; Site: right antecubital; ms4 11/01 01:18 Follow up: Response: No adverse reaction ms4 10/31 23:58 CANCELLED (Duplicate Order): Tylenol Suppository 650 mg ND once ms4 23:58 Drug: Tylenol 650 mg Route: PO; ms4 11/01 01:17 Follow up: Response: No adverse reaction ms4 10/31 23:58 Drug: Metoprolol 50 mg Route: PO; ms4 11/01 01:17 Follow up: Response: No adverse reaction ms4 10/31 23:58 Drug: NS 0.9% 1000 ml Route: IV; Rate: 1 bolus; Site: right antecubital; ms4 11/01 01:19 CANCELLED (Duplicate Order): Metoprolol 5 mg IVP once; Hold for SBP <100 or HR <60. ms4 Disposition: 10/31 23:30 Chart complete. cp Disposition Summary: 10/31/20 21:00 Hospitalization Ordered Hospitalization Status: Inpatient Admission cp Condition: Stable cp Problem: new cp Symptoms: have improved cp Bed/Room Type: Standard cp Location: [facility] ER HOLD(10/31/20 23:50) [facility] Room Assignment: ERHOLD-(10/31/20 23:50) [facility] Provider: Luis Raymond(11/01/20 02:42) cp Diagnosis - Chronic atrial fibrillation cp - Other specified sepsis cp - UTI/ Urinary tract infection, site not specified cp - SARS-associated coronavirus as the cause of diseases classified elsewhere cp - Other pneumonia, unspecified organism cp Forms: - Medication Reconciliation Form cp - SBAR form cp Addendum: 11/04/2020 07:12 Co-signature as Attending Physician, Geovani Medel MD I agree with the assessment and k dr plan of care. Signatures: Dispatcher [employer] EDND Geovani Medel MD MD [facility] Donato Go PA PA cp Yasmeen Fisher RN RN tr6 Pepper Nieto RN RN ms4 Tiffany Jiang RN RN 3 Corrections: (The following items were deleted from the chart) 10/31 19:12 18:02 CORONAVIRUS+MR.LAB.BRZ ordered. EDMS EDMS 19:13 18:02 Influenza Screen (A \T\ B)+BA.LAB.BRZ ordered. EDMS EDMS 23:40 20:37 Aspirin Suppository 600 mg ND once ordered. cp ms4 23:50 21:00 Telemetry/MedSurg (Inpatient) [facility] 23:50 21:00 cp 3 23:58 23:40 Tylenol Suppository 650 mg ND once ordered. ms4 ms4 11/01 01:19 10/31 20:26 Metoprolol 5 mg IVP once; Hold for SBP <100 or HR <60. ordered. cp ms4 11/01 02:42 10/31 21:00 Jimmie Phelps [facility]
[2020-11-01] MEDS ORDERED: METOPROLOL TARTRATE 5 MG/5 ML INJ IV ONE ×2 (00:03→17:11)
[2020-11-01] MEDS ORDERED: ACETAMINOPHEN 650MG/RECT SUPP PR ONE (00:03)
[2020-11-01] MEDS ORDERED: METOPROLOL TARTRATE 5 MG/5 ML INJ IV PRN ×2 (00:16→10:01)
[2020-11-01] MEDS ORDERED: IPRATROPIUM BROM 0.5MG/2.5ML NEB PRN (00:16)
[2020-11-01] MEDS ORDERED: ALBUTEROL 2.5 MG/3 ML NEB SOL NEB PRN ×2 (00:16→07:36)
[2020-11-01] MEDS ORDERED: ONDANSETRON 4 MG/2 ML VIAL IV PRN (00:16)
[2020-11-01] MEDS ORDERED: ACETAMINOPHEN 650MG/RECT SUPP PR PRN (00:16)
[2020-11-01] MEDS ORDERED: NA CHLORIDE 0.9% 1,000 ML ONE ×3 (00:20→17:24)
[2020-11-01] MEDS ORDERED: METOPROLOL TAR 50 MG TAB ONE ×3 (00:20→20:15)
[2020-11-01] MEDS ORDERED: ACETAMINOPHEN 325 MG TABLET ONE (00:20)
[2020-11-01 00:45] VITALS: TEMP 100
[2020-11-01] MEDS: NA CHLORIDE 0.9% 1,000 ML IV SCH ×2 (01:00→14:20)
--- NOTE | 2020-11-01 01:11 | P.HP ---
Certification for Inpatient Patient admitted to: Inpatient With expected LOS: >2 Midnights Patient will require the following post-hospital care: None Practitioner: I am a practitioner with admitting privileges, knowledge of patient current condition, hospital course, and medical plan of care. Services: Services provided to patient in accordance with Admission requirements found in Title 42 Section 412.3 of the Code of Federal Regulations Patient History Date of Service: 11/01/20 History of Present Illness: Ms. Pradhan is a 84 yo F with COPD, CHF, dementia, HTN, hypothyroidism, and chronic afib not on anticoagulation who presents with altered [facility] status from [facility]. She was febrile to 103.8, atrial fibrilation rate 150s, sats 98% on 3L NC. Rate control was obtained with IV metoprolol and digoxin. Received 2L NS bolus in the ED. CT Head wnl. CT Chest shows suspected left lower lobe pneumonia. CT Abdomen pelvis without acute or significant finding. BUN 51, Cr 2.48, GFR 18. Glu 142. AST 1300, ALT 694. Trop 0.41. BNP 3610. UA positive for UTI. COVID+. Allergies ciprofloxacin Adverse Reaction (Verified 12/08/18 05:44) Rash; diarrhea levofloxacin [From Levaquin] Adverse Reaction (Verified 12/08/18 05:44) Rash; diarrhea Home Medications: Acetaminophen with Codeine [Tylenol with Codeine #3 Tablet] 1 tab PO Q6H PRN 12/08/18 Diazepam [Valium] 1 tab PO BEDTIME 12/08/18 Ipratropium [place] 1 godfrey IH Q6H PRN 12/08/18 Metoprolol Tartrate [Lopressor*] 1 tab PO BID 12/08/18 Venlafaxine HCl [Venlafaxine HCl ER] 75 mg PO DAILY 12/08/18 methIMAzole [Tapazole*] 15 mg PO DAILY 12/08/18 predniSONE [Prednisone*] 1 tab PO DAILY 12/08/18 Carboxymethylcellulose Sodium [Artificial Tears] 1 gtt EACH EYE BID 08/29/19 Docusate Sodium 100 mg PO Q12HP PRN 08/29/19 Eucalyptus/Menthol [Cough Drops] 1 tab PO Q2HP PRN 08/29/19 Ferrous Sulfate [Ferrous Sulfate*] 325 mg PO DAILY 08/29/19 Guaifenesin/Dextromethorphan [Coricidin Hbp Chest Ranjith-Cough] 1 cap PO Q4HP PRN 08/29/19 Hydrocort Acetate Suppos [Anucort-Hc Suppository*] 25 mg RC BIDP PRN 08/29/19 Loperamide HCl [Imodium A-D] 2 mg PO Q6HP PRN 08/29/19 Melatonin/Pyridoxine [Melatonin 5 mg Tablet] 2 tab PO BEDTIME PRN PRN 08/29/19 Nystatin Powder [Mycostatin (Powder)*] 1 godfrey TOP Q12HP PRN 08/29/19 Perforomist Nebulization 20mcg/2ml 2 ml IH BID 08/29/19 Potassium Chloride 10 meq PO DAILY 08/29/19 Psyllium Husk (with Sugar) [Metamucil Packet] 1 packet PO DAILYPRN PRN 08/29/19 Vit A/Vit C/Vit E/Zinc/Copper [Preservision Areds Softgel] 1 each PO DAILY 08/29/19 Amox/Clavulanate [Augmentin 500-125 mg Tab] 500 mg PO DAILY #7 tab 08/30/19 Bethanechol Chloride 10 mg PO TID #90 tablet 08/30/19 Furosemide [Lasix*] 40 mg PO BIDL #60 tab 08/30/19 - Past Medical/Surgical History Diabetic: No -: Hypertension -: CAD -: COPD, on chronic oxygen and steroids -: GERD -: Depression -: Dementia -: AFib on chronic anti coagulation therapy -: Hyperthyroidism -: UTI -: Anxiety -: GI Bleed -: NM -: tonsillectomy @ 8 yrs old -: Cataract surgery both eyes Psychosocial/ Personal History: [facility] - Family History Family History: Reviewed- Non-Contributory - Family History Father -: Heart disease, Hypertension, Stroke, Kidney disease Notes: Bryte's disease Mother -: Heart disease, Hypertension, Stroke Sister -: Hypertension, Kidney disease Notes: anuerysm Brother -: Cancer Notes: cancer of esophagus and colon cancer - Social History Smoking Status: Unknown if ever smoked Alcohol use: No CD- Drugs: No Caffeine use: Yes Place of Residence: Custodial Review of Systems is unable to be obtained Physical Examination - Vital Signs Temperature: 100 F Blood Pressure: 117/100 Pulse: 101 Respirations: 20 Pulse Ox (%): 100 - Physical Exam General: Confused HEENT: Atraumatic, PERRLA, Mucous membr. moist/pink, EOMI, Sclerae nonicteric Neck: Supple, 2+ carotid pulse no bruit, No LAD, Without JVD or thyroid abnormality Respiratory: Diminished, Rhonchi/gurgles Cardiovascular: No edema, Normal pulses, No gallops, No rubs, No murmurs, Irregular heart rate/rhythm Capillary refill: <2 Seconds Gastrointestinal: Normal bowel sounds, No tenderness Musculoskeletal: No tenderness Integumentary: No rashes Neurological: Normal strength at 5/5 x4 extr, Normal tone, Sensation intact, Cranial nerves 3-12 intact, Dementia Lymphatics: No axilla or inguinal lymphadenopathy Urinary: Francisco catheter - Studies Laboratory Data (last 24 hrs) 10/31/20 18:07: PT 14.6 H, INR 1.27 10/31/20 18:07: WBC 10.30, Hgb 11.0 L, Hct 35.2 L, Plt Count 365 10/31/20 18:07: Sodium 139, Potassium 5.1, BUN 51 H D, Creatinine 2.48 H D, Glucose 142 H, Magnesium 2.5 H, Total Bilirubin 0.4, AST 1300 H* D, ALT 694 H* D, Alkaline Phosphatase 70 Assessment and Plan - Problems (Diagnosis) (1) COVID Current Visit: Yes Status: Acute (2) Chronic a-fib Current Visit: Yes Status: Chronic (3) PATRICIA (acute kidney injury) Onset Date: 12/07/16 Current Visit: No Status: Acute (4) Elevated troponin Onset Date: 03/17/18 Current Visit: No Status: Acute (5) [facility] resident Current Visit: No Status: Chronic (6) Pneumonia Onset Date: 06/08/17 Current Visit: No Status: Acute Qualifiers: Pneumonia type: due to unspecified organism Laterality: unspecified laterality Lung location: unspecified part of lung Qualified Code(s): J18.9 - Pneumonia, unspecified organism (7) Sepsis Onset Date: ~12/04/16 Current Visit: No Status: Acute Qualifiers: Sepsis type: sepsis due to unspecified organism Sepsis acute organ dysfunction status: unspecified Qualified Code(s): A41.9 - Sepsis, unspecified organism (8) UTI (urinary tract infection) Onset Date: 12/07/16 Current Visit: No Status: Acute Qualifiers: Urinary tract infection type: site unspecified Hematuria presence: without hematuria Qualified Code(s): N39.0 - Urinary tract infection, site not specified (9) CHF (congestive heart failure) Current Visit: No Status: Chronic Qualifiers: Heart failure type: diastolic Heart failure chronicity: chronic Qualified Code(s): I50.32 - Chronic diastolic (congestive) heart failure (10) COPD (chronic obstructive pulmonary disease) Onset Date: 12/07/16 Current Visit: No Status: Chronic Qualifiers: COPD type: unspecified COPD Qualified Code(s): J44.9 - Chronic obstructive pulmonary disease, unspecified (11) HTN (hypertension) Onset Date: 12/07/16 Current Visit: No Status: Chronic Qualifiers: Hypertension type: primary hypertension Qualified Code(s): I10 - Essential (primary) hypertension (12) Hyperthyroidism Current Visit: No Status: Chronic - Plan nephrology consulted, cardiology consulted, pulm consulted continue gentle IVF hydration, received 2L in the ED, continue IV lasix continue IV ceftriaxone and azithromycin, blood culture and sputum culture pending hepatitis panel and tylenol level pending, repeat LFTs in AM ECHO in the AM, continue PO metoprolol, IV metoprolol PRN on telemetry, trend troponins, TFTs pending continue IV steroids, breathing treatments PRN, O2 as needed, RT consulted tylenol [place] for fever A1c pending, sliding scale insulin and accuchecks reconcile and continue home medications DVT ppx Discharge Plan: Custodial Plan to discharge in: 72 Hours - Advance Directives Does patient have a Living Will: Yes Does patient have a Durable POA for Healthcare: Yes - Code Status/Comfort Care Code Status Assessed: Yes (full code ) Critical Care: No Time Spent Managing Pts Care (In Minutes): 70
[2020-11-01 01:17] VITALS: BMI 33.3
--- NOTE | 2020-11-01 05:47 | P.INFCA ---
Sepsis Focused Assessment - Focused Assessment Complete? Sepsis Focused Assessment Completed?: Yes - Sepsis Screen Result Severe Sepsis: Positive Septic Shock: Negative - Evaluation Current stage of sepsis: Severe sepsis - Vital Signs Reviewed: Yes Temperature: 100 F Heart rate: 101 Blood Pressure: 117/100 Respiratory Rate: 20 O2 Sat by Pulse Oximetry: 100 - Examination Date exam was performed: 10/31/20 Time exam was performed: 23:00 Heart: Irregular rhythm, Tachycardia, Irregularly irregular Lungs: Diminished air movement, Rhonchi Peripheral pulses: 3+ Normal Peripheral pulse location: Radial Capillary refill: <2 Seconds Skin examination: Normal turgor, Pale
[2020-11-01 07:06] LABS: Absolute Lymphocytes (CBC) 0.9 K/uL (0.7-4.9); Basophils % 0.3 % (0-1.3); Hematocrit 32.8 % (36.0-45.0); Lymphocytes % 9.7 % (15.3-44.8); MPV 8.2 fL (7.6-11.3); RBC Red Blood Cell Count 3.99 M/uL (3.86-4.86)
--- NOTE | 2020-11-01 07:11 | P.PN ---
Subjective Date of Service: 11/01/20 Primary Care Provider: assisted Chief Complaint: Fever Subjective: Other (Patient stable at this time. Currently on 4 L. Slight confusion noted.) Physical Examination - Vital Signs Temperature: 100 F Blood Pressure: 117/100 Pulse: 101 Respirations: 20 Pulse Ox (%): 100 - Studies Laboratory Data (last 24 hrs) 10/31/20 18:07: PT 14.6 H, INR 1.27 10/31/20 18:07: WBC 10.30, Hgb 11.0 L, Hct 35.2 L, Plt Count 365 10/31/20 18:07: Sodium 139, Potassium 5.1, BUN 51 H D, Creatinine 2.48 H D, Glucose 142 H, Magnesium 2.5 H, Total Bilirubin 0.4, AST 1300 H* D, ALT 694 H* D, Alkaline Phosphatase 70 Assessment & Plan Discharge Plan: Snf Plan to discharge in: Greater than 2 days Physician Review Additional Text: COVID: Positive CT Head: COMPARISON: CT head June 2018 TECHNIQUE: Axial 5 mm thick images of the head were obtained without IV contrast. All CT scans are performed using dose optimization technique as appropriate and may include automated exposure control or mA/KV adjustment according to patient size. FINDINGS: No intracranial hemorrhage, mass, edema or shift of mid-line structures. No acute infarction changes seen. No cortical edema or sulcal effacement. Prominent atrophy and chronic ischemic changes are present. Ventricles are in proportion to the volume loss. Intracranial findings are similar to 2019. Arterial calcifications are present. Mastoid air cells and visualized portions of the paranasal sinuses are clear. No acute bony findings. IMPRESSION: Negative non-contrast CT head examination for acute finding. Above detailed findings are stable back to 2019. CT Scan: COMPARISON: Thorax Wo Con dated 12/08/2018 TECHNIQUE: Axial 5 millimeter thick images of the chest, abdomen and pelvis were obtained without IV contrast. Oral contrast was administered. All CT scans are performed using dose optimization technique as appropriate and may include automated exposure control or mA/KV adjustment according to patient size. FINDINGS: Multinodular enlarged left lobe thyroid gland noted similar to comparison. Left lower lobe partial atelectasis present. There are airspace opacities in the left lower lobe that could be infiltrate. Partial atelectasis seen in the right lower lobe. No large mass or consolidation. No pneumothorax or pleural effusion. No chest wall mass or abnormal axillary lymphadenopathy seen. Mediastinal and hilar regions show no mass or lymphadenopathy. No significant cardiac finding. Prominent aortic calcifications are present. Esophagus is dilated and filled with fluid presumably from reflux. Dilated esophagus was present on prior imaging. No mass at the GE junction seen. The liver, spleen and pancreas show no significant findings for non contrast imaging. Gallbladder and biliary tree are normal. No hydronephrosis or suspicious renal mass. Isodense masses and pyelonephritis cannot be excluded on non contrast imaging. No adrenal abnormalities. Urinary bladder is contracted around a Francisco catheter. Pelvic floor laxity is seen. No dilated bowel loops or focal ball bowel wall thickening. Appendix is normal. No free air, free fluid or inflammatory stranding. No hernia, mass or bulky lymphadenopathy. No significant bone or vascular finding. Infrarenal aorta is 2.4 cm in diameter. No displaced calcifications. IMPRESSION: Suspected left lower lobe pneumonia. No other significant lung parenchymal finding. History indicates the patient is COVID positive. Single lobe abnormality is not a classic COVID pneumonia presentation. Non COVID pneumonia etiology should also be considered. CT abdomen and pelvis imaging shows no acute or significant finding. CT abdomen and pelvis imaging shows no significant or suspicious finding. Initial CXR: COMPARISON: Two view chest November 2018 TECHNIQUE: AP portable chest image was obtained 10/31/2020 6:36 pm . FINDINGS: No peripheral mass or consolidation. Chronic interstitial lung pattern is present accentuated by shallow inspiration. No failure or volume overload identified. Mild cardiomegaly is present due to low lung volume. Heart size is not substantially different from comparison. No measurable pleural effusion and no pneumothorax. No acute bony abnormality seen. No acute aortic findings suspected. IMPRESSION: No acute cardiopulmonary process. Above detailed chest findings are stable from 2019. Physical exam: General: Confused HEENT: Atraumatic, PERRLA, Mucous membr. moist/pink, EOMI, Sclerae nonicteric Neck: Supple, 2+ carotid pulse no bruit, No LAD, Without JVD or thyroid abnormality Respiratory: Diminished, Rhonchi/gurgles Cardiovascular: Atrial fibrillation atrial fibrillation rate around 100-120 Capillary refill: <2 Seconds Gastrointestinal: Normal bowel sounds, No tenderness Musculoskeletal: No tenderness Integumentary: No rashes Neurological: Normal strength at 5/5 x4 extr, Normal tone, Sensation intact, Cranial nerves 3-12 intact, Dementia Lymphatics: No axilla or inguinal lymphadenopathy Urinary: Francisco catheter Impression: Fever secondary to sepsis without septic shock or severe sepsis related to UTI complicated with left lower lobe pneumonia Positive Covid with history of COVID vaccination Acute on chronic Renal disease stage 4 Atrial fibrillation with RVR not on chronic anticoagulation therapy Elevated troponin likely ischemic demand with history of chronic CHF COPD on chronic steroids Hypertension Hypothyroidism Depression with anxiety GERD Plan: Fever secondary to sepsis without septic shock or severe sepsis related to UTI complicated with left lower lobe pneumonia: Patient stable at this time. Continue oxygen to maintain sats above 93%. Currently on 4 L per nasal cannula. Continue with IV Rocephin and Zithromax. Blood, urine, sputum cultures obtained. Will monitor closely. Will provide probiotic. Tylenol as needed for fever. Will recheck chest x-ray tomorrow. Pulmonology consulted to further evaluate. Await recommendation. Positive Covid with history of COVID vaccination: Patient with history of Covid vaccine. Chest x-ray shows no significant Covid pattern at this time. Chest x- ray shows more bacterial pneumonia. Currently being covered with antibiotic therapy. Will check CRP and ferritin. Will provide vitamin supplementation. Continue with oral steroid. Await recommendations from pulmonology. Acute on chronic renal disease stage 4: Continue with IV fluids. Will check renal ultrasound. Will monitor input and output closely. Nephrology consulted. Await recommendation. Atrial fibrillation with RVR not on chronic anticoagulation therapy: Patient has received metoprolol, digoxin. Continue with metoprolol 50 mg 1 pill twice daily. If patient remains in RVR will need to consider IV amiodarone. Will discuss with cardiology. Will start Eliquis low-dose 2.5 mg 1 pill twice daily Elevated troponin likely ischemic demand with history of chronic CHF: Will monitor troponin. Will obtain echocardiogram. Recheck chest x-ray tomorrow. Continue IV Lasix. Await recommendations from cardiology. COPD on chronic steroids: Continue with COPD medication. Will change IV steroids to oral prednisone 20 mg 1 pill twice daily. Change albuterol to Xopenex. Will provide Brovana and Atrovent. Pulmonology consulted. Await recommendations. Respiratory consulted to wean off oxygen. Currently on 4 L per nasal cannula. Hypertension: Continue metoprolol. Parameters in place. Hyperthyroidism: Continue with medicationmethimazole Depression with anxiety: Continue with Valium as needed. Continue Effexor GERD: Continue with Protonix CODE STATUS: Patient is full code DVT prophylaxis: Due to atrial fibrillation will start Eliquis Advance care plannin minutes Patient will return to her alf at discharge Time Spent Managing Pts Care (In Minutes): 55
[2020-11-01] MEDS ORDERED: DIAZEPAM 5 MG TABLET PO PRN (07:23)
[2020-11-01] MEDS ORDERED: BENZONATATE 100 MG CAP PO PRN (07:23)
[2020-11-01] MEDS: INSULIN -REGULAR HUMAN 50 UNIT/0.5 ML ML SQ SCH ×3 (07:30→16:30)
[2020-11-01 07:49] LABS: Albumin 2.6 g/dL (3.4-5.0); Bilirubin Total 0.2 mg/dL (0.2-1.0); Magnesium 2.2 mg/dL (1.8-2.4); Phosphorus 4.7 mg/dL (2.5-4.9); Potassium 4.3 mmol/L (3.5-5.1); Protein, Total 6.8 g/dL (6.4-8.2); Thyroid Stimulating Hormone 0.027 uIU/mL (0.360-3.740)
[2020-11-01] MEDS: ARFORMOTEROL TARTRATE 15 MCG/2 ML VIAL.NEB NEB SCH ×2 (08:00→19:49)
[2020-11-01] MEDS ORDERED: ASCORBIC ACID 500 MG TABLET ONE ×2 (08:29→08:34)
[2020-11-01] MEDS ORDERED: THIAMINE HCL 100 MG TABLET ONE (08:29)
[2020-11-01] MEDS ORDERED: FUROSEMIDE 20 MG/ 2ML VIAL ONE (08:29)
[2020-11-01 08:30] LABS: Ferritin 664.3 ng/mL (8-388)
[2020-11-01] MEDS ORDERED: APIXABAN 5 MG TABLET ONE (08:30)
[2020-11-01] MEDS ORDERED: VITAMIN D 1000 UNIT TAB ONE (08:30)
[2020-11-01] MEDS ORDERED: ZINC SULFATE 220 MG CAP ONE (08:30)
[2020-11-01] MEDS ORDERED: ZINC SULFATE 220 MG CAP PO SCH (09:00)
[2020-11-01] MEDS ORDERED: METHYLPREDNISOLONE 40 MG INJ IV SCH (09:00)
[2020-11-01] MEDS: ASCORBIC ACID 500 MG TABLET PO SCH ×2 (09:00→13:41)
[2020-11-01] MEDS ORDERED: predniSONE 20 MG TAB PO SCH (09:00)
[2020-11-01] MEDS: METOPROLOL TAR 50 MG TAB PO SCH ×2 (09:00→19:52)
[2020-11-01] MEDS ORDERED: FUROSEMIDE 20 MG/ 2ML VIAL IV SCH (09:00)
[2020-11-01] MEDS ORDERED: VITAMIN D 1000 UNIT TAB PO SCH (09:00)
[2020-11-01] MEDS ORDERED: APIXABAN 2.5 MG TABLET PO SCH (09:00)
[2020-11-01] MEDS ORDERED: THIAMINE HCL 100 MG TABLET PO SCH (09:00)
[2020-11-01] MEDS ORDERED: METOPROLOL TAR 50 MG TAB PO SCH (09:00)
[2020-11-01] MEDS ORDERED: VENLAFAXINE HCL XR 75 MG CAP PO SCH (09:00)
[2020-11-01] MEDS ORDERED: predniSONE 20 MG TAB ONE (10:00)
--- NOTE | 2020-11-01 10:33 | RAD REPORT ---
EXAM DESCRIPTION: US - Abdomen Exam Complete - 11/01/2020 9:27 am CLINICAL HISTORY: Abdominal pain. elevated liver function COMPARISON: Abdomen Exam Complete dated 06/30/2018; Chest Abd Pelvis Wo Con dated 10/31/2020 FINDINGS: Mild diffuse fatty liver is seen. Small hypoechoic lesion is seen in the left lobe of the liver measuring 11 x 10 mm. This is nonspecific but favored to be benign. The gallbladder demonstrates no gallstones, pericholecystic fluid or gallbladder wall thickening. Co mmon bile duct is mildly dilated measuring 8-9 mm. Both kidneys are normal in size, shape and echotexture. No hydronephrosis is seen. Small cysts are li won present in both kidneys. Vague poorly defined hypoechoic region is seen in the right kidney mid aspect measuring 21 mm. The spleen is limited in visualization. The pancreas and aorta are obscured by bowel gas. The visualized aspects of the IVC are grossly normal. IMPRESSION: The common bile duct is dilated at 8-9 mm. MRCP would be recommended for further evaluat ion.
[2020-11-01] MEDS ORDERED: ARFORMOTEROL TARTRATE 15 MCG/2 ML VIAL.NEB ONE ×2 (11:13→20:11)
--- NOTE | 2020-11-01 12:44 | CON ---
Date of Consultation: 11/01/2020 Reason For Consultation: Atrial fibrillation. History Of Present Illness: An 84-year-old female, who was admitted with respiratory failure due to pneumonia, likely COVID pneumonia; history of COPD; hypertension; dementia; chronic atrial fibrillati on, on anticoagulation. Heart rate was up to 150s range and she was given some metoprolol. However, blood pressure was low. Then, a dose of 0.5 digoxin IV was given. Heart rate went down to the 120s . Past Medical History: As outlined above in the HPI. Medications: Refer reconciliation sheet for detailed list. Allergies: CIPROFLOXACIN AND LEVOFLOXACIN. Family History: No premature coronary artery disease or cancer. Social History: She does not smoke or drink. Does not use any drugs. Review of Systems: All systems reviewed and they were negative except mentioned in HPI. Physical Examination: Vital Signs: Reviewed. Head and Neck: Pupils reactive to light. No JVD. No cervical lymphadenopathy. Neck: Supple. Thyroid was not enlarged. Lungs: Rhonchi bilaterally with increased respiratory effort. Heart: Irregularly irregular. No extra sounds. Abdomen: Soft. Bowel sounds positive. No rigidity or rebound. Extremities: No clubbing, cyanosis. Skin: No rash noted. Neurologic: Alert, awake. No acute focal deficits appreciated. Investigations: AST 118, ALT 638. Creatinine 1.88. Assessment And Recommendations: Atrial fibrillation with rapid ventricular response, likely triggere d by the acute illness of the pneumonia and COVID-19 infection. Obtain echocardiogram and use IV met oprolol 5 mg every 8 hours as needed and start on metoprolol 25 mg by mouth q.8 hours. Adjust furthe r if needed. Due to elevated liver enzymes, amiodarone cannot be used at this point. We will monito r. Recommend anticoagulation with Eliquis or Lovenox. SR/MODL Voice ID: [id number] Report ID: [id number]
--- NOTE | 2020-11-01 13:00 | ECHO ---
HEIGHT: 5 ft 5 in WEIGHT: 200 lb 0 oz DATE OF STUDY: 11/01/[address]: Jimmie Phelps 2-DIMENSIONAL: YES M.MODE: YES DOPPLER: YES COLOR FLOW: YES TDS: YES PORTABLE: NO DEFINITY: NO BUBBLE STUDY: NO DIAGNOSIS: ATRIAL FIBRILLATION CARDIAC HISTORY: CATHERIZATION: SURGERY: PROSTHETIC VALVE: PACEMAKER: MEASUREMENTS (cm) DIASTOLIC (NORMALS) SYSTOLIC (NORMALS) IVSd 1.3 (0.6-1.2) LA Diam (1.9-4.0) LVEF 76% LVIDd 3.1 (3.5-5.7) LVIDs 1.8 (2.0-3.5) %FS 43% LVPWd 1.5 (0.6-1.2) Ao Diam (2.0-3.7) 2 DIMENSIONAL ASSESSMENT: RIGHT ATRIUM: NORMAL LEFT ATRIUM: NORMAL RIGHT VENTRICLE: NORMAL LEFT VENTRICLE: NORMAL TRICUSPID VALVE: NORMAL MITRAL VALVE: NORMAL PULMONIC VALVE: NORMAL AORTIC VALVE: PERICARDIAL EFFUSION: SMALL AORTIC ROOT: NORMAL LEFT VENTRICULAR WALL MOTION: NORMAL DOPPLER/COLOR FLOW: SEE BELOW COMMENTS: NORMAL LEFT VENTRICULAR EJECTION FRACTION 60-65% WITH NORMAL WALL MOTION. LEFT VENTRICULAR HYPERTROPHY. MILD AORTIC INSUFFICIENCY. SMALL PERCARDIAL EFFUSION. TECHNOLOGIST: Jeremias SANCHEZ
[2020-11-01] MEDS ORDERED: CEFEPIME/SWI 1gm 10 ML IVP SCH (15:30)
--- NOTE | 2020-11-01 15:34 | P.DS ---
Admission Date: 10/31/20 Discharge Date: 11/01/20 Primary Care Provider: alf Disposition: TRANSFER TO [facility] Discharge Condition: FAIR Reason for Admission: Fever Consultations: Pulmonary-Dr. Zamora Cardiology-Dr. Zapata Nephrology-Dr. Valdes Procedures: COVID: Positive CT Head: COMPARISON: CT head June 2018 TECHNIQUE: Axial 5 mm thick images of the head were obtained without IV contrast. All CT scans are performed using dose optimization technique as appropriate and may include automated exposure control or mA/KV adjustment according to patient size. FINDINGS: No intracranial hemorrhage, mass, edema or shift of mid-line structures. No acute infarction changes seen. No cortical edema or sulcal efface ment. Prominent atrophy and chronic ischemic changes are present. Ventricles are in proportion to the volume loss. Intracranial findings are similar to 2019. Arterial calcifications are present. Mastoid air cells and visualized portions of the paranasal sinuses are clear. No acute bony findings. IMPRESSION: Negative non-contrast CT head examination for acute finding. Above detailed findings are stable back to 2019. CT Scan: COMPARISON: Thorax Wo Con dated 12/08/2018 TECHNIQUE: Axial 5 millimeter thick images of the chest, abdomen and pelvis were obtained without IV contrast. Oral contrast was administered. All CT scans are performed using dose optimization technique as appropriate and may include automated exposure control or mA/KV adjustment according to patient size. FINDINGS: Multinodular enlarged left lobe thyroid gland noted similar to comparison. Left lower lobe partial atelectasis present. There are airspace opacities in the left lower lobe that could be infiltrate. Partial atelectasis seen in the right lower lobe. No large mass or consolidation. No pneumothorax or pleural effusion. No chest wall mass or abnormal axillary lymphadenopathy seen. Mediastinal and hilar regions show no mass or lymphadenopathy. No significant cardiac finding. Prominent aortic calcifications are present. Esophagus is dilated and filled with fluid presumably from reflux. Dilated esophagus was present on prior imaging. No mass at the GE junction seen. The liver, spleen and pancreas show no significant findings for non contrast imaging. Gallbladder and biliary tree are normal. No hydronephrosis or suspicious renal mass. Isodense masses and pyelonephritis cannot be excluded on non contrast imaging. No adrenal abnormalities. Urinary bladder is contracted around a Francisco catheter. Pelvic floor laxity is seen. No dilated bowel loops or focal ball bowel wall thickening. Appendix is normal. No free air, free fluid or inflammatory stranding. No hernia, mass or bulky lymphadenopathy. No significant bone or vascular finding. Infrarenal aorta is 2.4 cm in diameter. No displaced calcifications. IMPRESSION: Suspected left lower lobe pneumonia. No other significant lung parenchymal finding. History indicates the patient is COVID positive. Single lobe abnormality is not a classic COVID pneumonia presentation. Non COVID pneumonia etiology should also be considered. CT abdomen and pelvis imaging shows no acute or significant finding. CT abdomen and pelvis imaging shows no significant or suspicious finding. Initial CXR: COMPARISON: Two view chest November 2018 TECHNIQUE: AP portable chest image was obtained 10/31/2020 6:36 pm . FINDINGS: No peripheral mass or consolidation. Chronic interstitial lung pattern is present accentuated by shallow inspiration. No failure or volume overload identified. Mild cardiomegaly is present due to low lung volume. Heart size is not substantially different from comparison. No measurable pleural effusion and no pneumothorax. No acute bony abnormality seen. No acute aortic findings suspected. IMPRESSION: No acute cardiopulmonary process. Above detailed chest findings are stable from 2019. Liver US: COMPARISON: Abdomen Exam Complete dated 06/30/2018; Chest Abd Pelvis Wo Con dated 10/31/2020 FINDINGS: Mild diffuse fatty liver is seen. Small hypoechoic lesion is seen in the left lobe of the liver measuring 11 x 10 mm. This is nonspecific but favored to be benign. The gallbladder demonstrates no gallstones, pericholecystic fluid or gallbladder wall thickening. Common bile duct is mildly dilated measuring 8-9 mm. Both kidneys are normal in size, shape and echotexture. No hydronephrosis is seen. Small cysts are likely present in both kidneys. Vague poorly defined hypoechoic region is seen in the right kidney mid aspect measuring 21 mm. The spleen is limited in visualization. The pancreas and aorta are obscured by bowel gas. The visualized aspects of the IVC are grossly normal. IMPRESSION: The common bile duct is dilated at 8-9 mm. MRCP would be recommended for further evaluation. ECHO: MEASUREMENTS (cm) DIASTOLIC (NORMALS) SYSTOLIC (NORMALS) IVSd 1.3 (0.6-1.2) LA Diam (1.9-4.0) LVEF 76% LVIDd 3.1 (3.5-5.7) LVIDs 1.8 (2.0-3.5) %FS 43% LVPWd 1.5 (0.6-1.2) Ao Diam (2.0-3.7) 2 DIMENSIONAL ASSESSMENT: RIGHT ATRIUM: NORMAL LEFT ATRIUM: NORMAL RIGHT VENTRICLE: NORMAL LEFT VENTRICLE: NORMAL TRICUSPID VALVE: NORMAL MITRAL VALVE: NORMAL PULMONIC VALVE: NORMAL AORTIC VALVE: PERICARDIAL EFFUSION: SMALL AORTIC ROOT: NORMAL LEFT VENTRICULAR WALL MOTION: NORMAL DOPPLER/COLOR FLOW: SEE BELOW COMMENTS: NORMAL LEFT VENTRICULAR EJECTION FRACTION 60-65% WITH NORMAL WALL MOTION. LEFT VENTRICULAR HYPERTROPHY. MILD AORTIC INSUFFICIENCY. SMALL PERCARDIAL EFFUSION. Medical problem list: Fever secondary to sepsis without septic shock or severe sepsis related to UTI complicated with left lower lobe pneumonia Positive Covid with history of COVID vaccination Acute on chronic renal disease stage 4 Atrial fibrillation with RVR not on chronic anticoagulation therapy Elevated troponin likely ischemic demand with history of chronic CHF with echo showing normal ejection fraction at 65%, small pericardial effusion noted Elevated liver function tests with noted dilated common bile duct COPD on chronic steroids Hypertension Hypothyroidism Depression with anxiety GERD Dementia Brief History of Present Illness: 84-year-old female with multiple medical problems including COPD, CHF, dementia, hypertension, hypothyroidism, chronic atrial fibrillation not on chronic anticoagulation therapy. [facility] She was found to be febrile at 103.8. Patient was in atrial fibrillation with RVR with rate around the with the 150s. Patient was satting 98% on 3 L. In the ER patient was given IV metoprolol and digoxin. Patient also given 2 L bolus of fluid. CT head unremarkable. CT chest showed suspected left lower lobe pneumonia. CT abdomen unremarkable. LFTs elevated. Patient in acute renal failure. Patient found to have a UTI and positive for Covid. patient admitted for further evaluation and treatment. Hospital Course: Patient presented with fever secondary to sepsis without septic shock or severe sepsis. This was likely related to underlying UTI complicated with left lower lobe pneumonia. Patient was initially placed on Rocephin and Zithromax. Other abnormalities included atrial fibrillation with RVR, elevated troponin likely ischemic demand with history of chronic CHF, elevated liver function. Liver ultrasound showed dilated common bile duct. MRCP was recommended. Patient given IV fluids in the emergency room. IV diabetic therapies were changed to cefepime and vancomycin after blood cultures were positive. Patient also given IV metoprolol and digoxin for her atrial fibrillation. Cardiology recommended to continue with IV metoprolol as IV amiodarone was not an option due to her elevated liver function. Patient was started on vitamin supplementation and oral steroid for COVID-19. Due to the lack of ICU bed in the hospital the patient was considered for transfer. I spoke to the family at length concerning transfer and recommendation. Family in agreement. Patient will be transferred to [facility] to continue her care. Patient remains on IV cefepime, Rocephin for her UTI, bacteremia and left lower lobe pneumonia. Blood, urine and sputum cultures pending. Patient remains on IV metoprolol for her atrial fibrillation and RVR. IV amiodarone cannot be used due to her elevated liver function. MRCP is recommended to further evaluate the common bile duct. Continue to monitor liver function. Continue with COPD treatment. Continue with COVID-19 treatment as well. Patient was started on Eliquis due to her atrial fibrillation. Continue with cardiology, pulmonology, nephrology consultations. Patient will require GI to further evaluate. We will discuss case with transfer center and with physician to accept transfer. For now continue with treatment plan below. Fever secondary to sepsis without septic shock or severe sepsis related to UTI complicated with left lower lobe pneumonia and bacteremia: Patient remains on IV cefepime and vancomycin. Pharmacy to monitor and adjust. Await blood, urine and sputum culture results. Continue with Tylenol as needed. Positive Covid with history of COVID vaccination: Patient with history of Covid vaccine. Chest x-ray shows no significant Covid pattern at this time. Chest x-ray shows more bacterial pneumonia. Patient on oral steroid. Continue with vitamin supplementation. Continue with pulmonology recommendation. Acute on chronic renal disease stage 4: Continue with IV fluids. Recommend to check renal ultrasound. Continue with nephrology recommendation. Atrial fibrillation with RVR not on chronic anticoagulation therapy: Patient has received IV metoprolol, digoxin. Continue with metoprolol 50 mg 1 pill twice daily orally. Continue with IV metoprolol to maintain heart rate below 120. Anticipate improvement with IV hydration. Patient not a candidate for IV amiodarone due to elevated liver function. Continue with Eliquis low-dose. Continue with cardiology recommendations. Elevated troponin likely ischemic demand with history of chronic diastolic CHF with echocardiogram showing normal ejection fraction at 65% with small pericardial effusion: Continue with IV Lasix. Continue with cardiology recommendations. Elevated liver function with dilated common bile duct: Continue to monitor liver function. Recommend MRCP to further evaluate. May require GI evaluation. COPD on chronic steroids: Continue with COPD treatment. Continue with oral prednisone. Continue Xopenex, Brovana and Atrovent. Continue to wean off oxygen. Currently on 4 L per nasal cannula. Hypertension: Continue metoprolol. Parameters in place. Hyperthyroidism: Continue with medicationmethimazole Depression with anxiety: Continue with Valium as needed. Continue Effexor GERD: Continue with Protonix CODE STATUS: Patient is full code DVT prophylaxis: Continue Eliquis Advance care plannin minutes Patient to be transferred due to lack of ICU beds. Vital Signs/Physical Exam: Temp Pulse Resp BP Pulse Ox 100 F 151 H 20 117/100 H 100 11/01/20 07:30 11/01/20 09:00 11/01/20 07:30 11/01/20 07:30 11/01/20 07:30 General: Alert, In no apparent distress, Cooperative, Demented HEENT: Atraumatic Neck: Supple Respiratory: Other (Crackles to the bases. Currently on 4 L per nasal cannula.) Cardiovascular: Irregular heart rate/rhythm (Atrial fibrillation with rate around 1 20-1 30) Gastrointestinal: Normal bowel sounds Musculoskeletal: No erythema, No tenderness, No warmth Integumentary: No tenderness/swelling Neurological: Normal speech, Normal strength at 5/5 x4 extr, Normal tone, Dementia Laboratory Data at Discharge: WBC 9.00 K/uL (4.3-10.9) 11/01/20 06:57 Hgb 10.2 g/dL (12.0-15.0) L 11/01/20 06:57 Hct 32.8 % (36.0-45.0) L 11/01/20 06:57 Plt Count 281 K/uL (152-406) D 11/01/20 06:57 PT 14.6 SECONDS (9.5-12.5) H 10/31/20 18:07 INR 1.27 10/31/20 18:07 APTT 30.5 SECONDS (24.3-36.9) 10/31/20 11:38 Sodium 144 mmol/L (136-145) 11/01/20 06:57 Potassium 4.3 mmol/L (3.5-5.1) 11/01/20 06:57 BUN 47 mg/dL (7-18) H 11/01/20 06:57 Creatinine 1.88 mg/dL (0.55-1.3) H 11/01/20 06:57 Glucose 110 mg/dL (74-106) H 11/01/20 06:57 Phosphorus 4.7 mg/dL (2.5-4.9) 11/01/20 06:57 Magnesium 2.2 mg/dL (1.8-2.4) 11/01/20 06:57 Total Bilirubin 0.2 mg/dL (0.2-1.0) 11/01/20 06:57 AST 918 U/L (15-37) H* D 11/01/20 06:57 ALT 634 U/L (12-78) H* 11/01/20 06:57 Alkaline Phosphatase 64 U/L (45-117) 11/01/20 06:57 Troponin I 0.24 ng/mL (0.0-0.045) H 11/01/20 10:16 Triglycerides 188 mg/dL (<150) H 11/01/20 06:57 Cholesterol 157 mg/dL (<200) 11/01/20 06:57 HDL Cholesterol 43 mg/dL (40-60) 11/01/20 06:57 Cholesterol/HDL Ratio 3.65 11/01/20 06:57 Home Medications: Acetaminophen with Codeine [Tylenol with Codeine #3 Tablet] 1 tab PO Q6H PRN 12/08/18 Diazepam [Valium] 1 tab PO BEDTIME 12/08/18 Ipratropium Palmetto 1 godfrey IH Q6H PRN 12/08/18 Metoprolol Tartrate [Lopressor*] 1 tab PO BID 12/08/18 Venlafaxine HCl [Venlafaxine HCl ER] 75 mg PO DAILY 12/08/18 methIMAzole [Tapazole*] 15 mg PO DAILY 12/08/18 predniSONE [Prednisone*] 1 tab PO DAILY 12/08/18 Carboxymethylcellulose Sodium [Artificial Tears] 1 gtt EACH EYE BID 08/29/19 Docusate Sodium 100 mg PO Q12HP PRN 08/29/19 Eucalyptus/Menthol [Cough Drops] 1 tab PO Q2HP PRN 08/29/19 Ferrous Sulfate [Ferrous Sulfate*] 325 mg PO DAILY 08/29/19 Guaifenesin/Dextromethorphan [Coricidin Hbp Chest Ranjith-Cough] 1 cap PO Q4HP PRN 08/29/19 Hydrocort Acetate Suppos [Anucort-Hc Suppository*] 25 mg RC BIDP PRN 08/29/19 Loperamide HCl [Imodium A-D] 2 mg PO Q6HP PRN 08/29/19 Melatonin/Pyridoxine [Melatonin 5 mg Tablet] 2 tab PO BEDTIME PRN PRN 08/29/19 Nystatin Powder [Mycostatin (Powder)*] 1 godfrey TOP Q12HP PRN 08/29/19 Perforomist Nebulization 20mcg/2ml 2 ml IH BID 08/29/19 Potassium Chloride 10 meq PO DAILY 08/29/19 Psyllium Husk (with Sugar) [Metamucil Packet] 1 packet PO DAILYPRN PRN 08/29/19 Vit A/Vit C/Vit E/Zinc/Copper [Preservision Areds Softgel] 1 each PO DAILY 08/29/19 Amox/Clavulanate [Augmentin 500-125 mg Tab] 500 mg PO DAILY #7 tab 08/30/19 Bethanechol Chloride 10 mg PO TID #90 tablet 08/30/19 Furosemide [Lasix*] 40 mg PO BIDL #60 tab 08/30/19 Physician Discharge Instructions: Transfer for further treatment Diet: AHA Activity: Fall precautions Followup: Carter Horne MD [Primary Care Provider] - Time spent managing pt's care (in minutes): 55
[2020-11-01] MEDS ORDERED: VANCOMYCIN 2.25 GM in NA CHLORIDE 0.9% 500 ML IVPB ONE (16:00)
[2020-11-01] MEDS ORDERED: CEFEPIME/SWI 1gm 10 ML ONE (17:11)
[2020-11-01 19:53] VITALS: BP 139/78
[2020-11-01] MEDS ORDERED: CEFTRIAXONE 1 GM/NS 50 ML 1 GM/50 ML BAG IV SCH (20:00)
[2020-11-01] MEDS ORDERED: CEFTRIAXONE/SWI 1gm 1 GM/10 ML SYR IV SCH (20:00)
[2020-11-01] MEDS ORDERED: AZITHROMYCIN IV 500 MG in NA CHLORIDE 0.9% 250 ML IVPB SCH (20:00)
[2020-11-01] MEDS ORDERED: CEFEPIME 1 GM/VIAL IV SCH (21:00)
[2020-11-01] MEDS ORDERED: MELATONIN 5 MG TABLET PO SCH (21:00)
--- NOTE | 2020-11-01 21:59 | CON ---
Date of Consultation: 11/01/2020 Chief Complaint: Acute on chronic kidney injury. History Of Present Illness: The patient is an 84-year-old woman with history hypertensive heart and kidney disease. She was admitted for respiratory failure. She was found to have likely COVID pneumo aisha. She has history of COPD, hypertension, dementia, chronic atrial fibrillation, on anticoagulatio n. She was found to have AFib with rapid ventricular response and heart rate was up to 150. She was treated with IV digoxin. She received 0.5 mg digoxin x1 dose and metoprolol was started. The patie nt has history of severe deconditioning. Previous workup showed chronic kidney disease stage 3. She has history of acute kidney injury, did not require dialysis in the past. On arrival to the [facility], creatinine level was 2.48. Baseline creatinine level is 1.3 to 1.4. The patient had a CT scan do ne per stone protocol without acute changes. Chest CT scan showed suspected left lower lobe pneumoni a. CT scan of the head did not show acute changes. Lab work revealed elevated liver function tests, AST was 1300, ALT 694. Troponin 0.1. BNP . Urine was positive for UTI and COVID test wa s positive. Serum creatinine level was 2.48, GFR 18, BUN 51. Review of Systems: Unobtainable. The patient is lethargic. Cannot provide review of systems. Past Medical History: Hypertension; coronary artery disease; COPD, on chronic oxygen and steroids; G ERD; depression; dementia; atrial fibrillation, on chronic anticoagulation therapy; hyperthyroidism; UTI; anxiety; GI bleeding; myocardial infarction; tonsillectomy; cataract surgery of both eyes. Family History: No kidney disease in the family. Father has heart disease, hypertension, although h e had stroke and kidney disease as well. Mother with heart disease, hypertension, and stroke. Siste r with hypertension, kidney disease. Brother with cancer, cancer of the esophagus and colon cancer. Physical Examination: General: The patient is lethargic, not in acute distress. Eyes: EOMI. Neck: Supple. No bruits. Respiratory: Diminished rhonchi present. Cardiovascular: Irregularly irregular. No pericardial friction rub. Abdomen: Obese, soft, nontender. Extremities: Minimal peripheral edema. Neurologic: The patient is lethargic, arousable, follows command. Laboratory Data: WBC 10.3, hemoglobin 11, hematocrit 35.2, platelet count 365,000. Sodium 139, pota ssium 5.1, BUN 51, creatinine 2.48, glucose 142, magnesium 2.5. AST 1300, ALT 694, AP 70. Impression And Plan: 1.Acute kidney injury, likely secondary to prerenal azotemia, renal hypoperfusion secondary to COVID pneumonia and congestive heart failure complicated by atrial fibrillation with rapid ventricular res ponse. Troponin level is elevated. Further workup with cryptologic support specialist for acute myocardial infarction . 2.Sepsis. Continue treatment for COVID pneumonia and covered with broad-spectrum antibiotics. 3.Urinary tract infection. Continue antibiotics. 4.Congestive heart failure. The patient may require diuretic. Monitor renal function. The patient has nonoliguric urine output. Avoid nephrotoxic medication. Echo will be done to assess ejection f raction. The patient is treated for COVID pneumonia with breathing treatments, IV steroids, and O2 t herapy. 5.Pending hemoglobin A1c. Continue insulin sliding scale. 6.Renal function somewhat improved since admission. Creatinine level is plateauing. Today, creatin ine level is 1.88. Previous baseline creatinine back in 2000 was ranging from 1.04 to 1.28. Continu e to monitor electrolytes. Potassium level improved from 5.3 to 4.3 and there is no evidence of meta bolic acidosis. 7.Elevated liver function tests. CK level will be done to rule out rhabdomyolysis. The patient may benefit from mild hydration if there is significant elevation of CK level. EB/MODL Voice ID: [id number] Report ID: [id number]
[2020-11-01 22:33] VITALS: O2SAT 97
[2020-11-02] MEDS ORDERED: PANTOPRAZOLE 40MG TABLET PO SCH (06:30)
[2020-11-03] MEDS ORDERED: VANCOMYCIN 1.75 GM in NA CHLORIDE 0.9% 500 ML IVPB SCH (16:00)
[2020-11-05 18:20] LABS: HBsAG Nonreactive (Nonreactive)
== END 2020-11-01 20:00 | disposition short-term general hospital (02) | DRG 871 ==
LOC: ER 17:24 → ERHOLD 23:47
PROVIDERS: ADMIT Internal Medicine; ATTEND Family Medicine
DX: A41.9 Sepsis, unspecified organism (principal); J15.9 Unspecified bacterial pneumonia; U07.1 COVID-19; N39.0 Urinary tract infection, site not specified; I48.20 Chronic atrial fibrillation, unspecified; I13.0 Hypertensive heart and chronic kidney disease with heart failure and stage 1 through stage 4 chronic kidney disease, or unspecified chronic kidney disease; N18.4 Chronic kidney disease, stage 4 (severe); I50.32 Chronic diastolic (congestive) heart failure; N17.9 Acute kidney failure, unspecified; J44.0 Chronic obstructive pulmonary disease with (acute) lower respiratory infection; R79.89 Other specified abnormal findings of blood chemistry; K83.8 Other specified diseases of biliary tract; F03.90 Unspecified dementia, unspecified severity, without behavioral disturbance, psychotic disturbance, mood disturbance, and anxiety; E03.9 Hypothyroidism, unspecified; F41.8 Other specified anxiety disorders; K21.9 Gastro-esophageal reflux disease without esophagitis; Z79.52 Long term (current) use of systemic steroids
CPT/HCPCS: 0240U; 36415; 51702; 70450; 71045; 71250; 74176; 76700; 80048; 80053; 80061; 80074; 80076; 80329; 81003; 81015; 82140; 82550; 82728; 82947; 83036; 83605; 83735; 83880; 84100; 84145; 84439; 84443; 84484; 85025; 85610; 85730; 86140; 87040; 87086; 87088; 87205; 93005; 93306; 94760; 96374; 96375; 99285; J0456; J0692; J0696; J1160; J1940; J3370; J7030; J7040; J7050; J7512; J7605